=== PATIENT | male | born 1945 | race Caucasian/White ===

== ENCOUNTER → 2018-12-15 | Outpatient (CLI) | payer MEDICARE, OTHER ==
--- NOTE | 2018-12-15 11:27 | NUR ---
PATIENT ARRIVED ON ROOM AIR PATIENCE RESTING SAT WAS 98% ON ROOM AIR WITH A HEART RATE OF 102. PATIENT WAS THEN WALKED FOR 6 MINUTES AFTER 2 MINUTES OF EXERCISE SAT WAS STILL 98% ON ROOM AIR AND AT 4 MINUTES SAT HAD DROPPED TO 97%AND AT 6 MINUTES HIS SAT WAS TO 98% AND HIS HEART RAT WAS NOW UP TO 125BPM.PATIENT THEN TOOK A SEAT AND RESTED AFTER 10 MINUTES OF REST THE PATIENTS SAT WAS 99%WITH A HEART RATE OF 110 BPM. Addendum: 12/15/18 at 1129 by ELLYN GLYNN RT Amended: Links added.
== END ==
LOC: RT 09:39
PROVIDERS: ATTEND Internal Medicine Hematology & Oncology
DX: J44.9 Chronic obstructive pulmonary disease, unspecified (principal); R06.02 Shortness of breath; Z85.118 Personal history of other malignant neoplasm of bronchus and lung
CPT/HCPCS: 94761

== ENCOUNTER 2018-12-30 11:37 | Outpatient (CLI) | payer MEDICARE, OTHER ==
[~2018-12-30] VITALS: Ht 182.9 cm; Wt 96.6 kg
[2018-12-30] MEDS ORDERED: TIOT4MIS2 IH (14:16)
[2018-12-30] MEDS ORDERED: MOME13HF3 IH (14:16)
[2018-12-30] MEDS ORDERED: FLUC150T2 PO (14:16)
[2018-12-30] MEDS ORDERED: ALBU90AE IH (14:16)
[2018-12-30] MEDS ORDERED: LEVO750T39 PO (14:17)
[2018-12-30] MEDS ORDERED: OMEP20TA7 PO (14:17)
[2018-12-30] MEDS ORDERED: PRED5TAB PO (14:17)
[2018-12-30] MEDS ORDERED: SIMV20TA3 PO (14:17)
[2018-12-30] MEDS ORDERED: TEMA30CA PO (14:17)
== END 2018-12-30 14:23 | disposition home or self-care (01) ==
LOC: PREOP 11:37
PROVIDERS: ATTEND Surgery
DX: Z01.818 Encounter for other preprocedural examination (principal)

== ENCOUNTER 2018-12-31 06:23 | Day surgery (SDC) | payer MEDICARE, OTHER ==
[2018-12-31] VITALS (8 sets, daily range): BP systolic 91–107; BP diastolic 42–67
[~2018-12-31] VITALS: Ht 182.9 cm; Wt 96.6 kg
[~2018-12-31 06:23] MED LIST: ALBU90AE IH; FLUC150T2 PO; LEVO750T39 PO; MOME13HF3 IH; OMEP20TA7 PO; PRED5TAB PO; SIMV20TA3 PO; TEMA30CA PO; TIOT4MIS2 IH
[2018-12-31] MEDS ORDERED: LACTATED RINGERS 1,000 ML IV PRN (06:34)
[2018-12-31] MEDS ORDERED: ceFAZolin 2 GM/50 ML NS 50 ML IV ONE (06:45)
--- OUTSIDE RECORDS SUMMARY | 2018-12-31 06:49 | XMS REPORT | Continuity of Care Document ---
Author Organization Unknown Address Unknown Allergies Active Description Code Type Severity Reaction Onset Reported/Identified Relationship to Patient Clinical Status Yes BACTRIM BACTRIM MILD Yes BACTRIM MILD DERMATOLOGICAL - LEONARDA Yes SULFUR SEVERE OTHER Medications Medication Packaging Start Date Stop Date Route Dosage Sig ONDANSETRON VIAL INJ 4 MG/2CC (ZOFRAN 2CC VIAL) MG 09/18/2016 09/18/2016 ONCE&0714 FENTANYL AMP INJ 100 MCG/2CC MCG 09/18/2016 09/18/2016 ONCE&0715 NORMAL SALINE 1000CC IV BAG INJ 0.9 % (NS 1000CC IV BAG) ml 09/18/2016 10/03/2016 CONTINUOUSEVERY 0 Hour FENTANYL AMP INJ 100 MCG/2CC MCG 09/18/2016 09/18/2016 ONCE&0833 HYDROCODONE/APAP 5MG/325MG TAB 5 MG/325MG (SUZIE-TAB 5/325) TAB 12/04/2016 12/04/2016 ONCE&1015 GUAIFENESIN TAB 600 MG (MUCINEX) MG 05/09/2018 05/09/2018 ONCE&1020 NORMAL SALINE 1000CC IV BAG INJ 0.9 % (NS 1000CC IV BAG) ml 05/09/2018 05/24/2018 CONTINUOUSEVERY 0 Hour MECLIZINE TAB 25 MG (ANTIVERT) MG 05/09/2018 05/09/2018 ONCE&1028 IBUPROFEN TAB 600 MG (MOTRIN) MG 05/09/2018 05/09/2018 ONCE&1032 ALBUTEROL SVN 2.5MG/3CC LIQ 2.5 MG (PROVENTIL ATA 2.5MG/3CC) MG 05/09/2018 05/09/2018 ONCE&1034 AZITHROMYCIN TAB 250 MG (ZITHROMAX) MG 05/09/2018 05/09/2018 ONCE&1211 ONDANSETRON VIAL INJ 4 MG/2CC (ZOFRAN 2CC VIAL) MG 08/05/2018 08/05/2018 PRN ONCE NORMAL SALINE 500CC IV BAG INJ 0.9 % (NS 500CC IV BAG) ml 08/05/2018 08/20/2018 CONTINUOUSEVERY 0 Hour KETOROLAC VIAL INJ 30 MG/CC (TORADOL VIAL) MG 08/05/2018 08/05/2018 ONCE&2009 Hyoscyamine oral disintegrating 0.125mg(Levsin) MG 08/05/2018 08/05/2018 ONCE&2034 FENTANYL INJ 100 MCG/2CC VIAL MCG 08/05/2018 08/05/2018 ONCE&2124 Problems Date Dx Coded Attending Type Code Diagnosis Diagnosed By 03/09/2015 EMMANUEL STROUD APRN Ot 327.23 OBSTRUCTIVE SLEEP APNEA (ADULT) (PEDIATR 03/09/2015 EMMANUEL STROUD APRN Ot G47.33 OBSTRUCTIVE SLEEP APNEA (ADULT) (PEDIATR 03/21/2016 W 162.9 03/21/2016 W 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 03/21/2016 W 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 03/21/2016 W 455.6 03/21/2016 W 496 CHRONIC AIRWAY OBSTRUCTION, NOT ELSEWHERE CLASSIFIED 03/21/2016 W 553.3 03/21/2016 W C34.90 MALIGNANT NEOPLASM OF UNSPECIFIED PART OF UNSPECIFIED BRONCHUS OR LUNG 03/21/2016 W G47.39 OTHER SLEEP APNEA 03/21/2016 W G62.2 POLYNEUROPATHY DUE TO OTHER TOXIC AGENTS 03/21/2016 W J44.9 CHRONIC OBSTRUCTIVE PULMONARY DISEASE, UNSPECIFIED 03/21/2016 W K21.9 GASTRO-ESOPHAGEAL REFLUX DISEASE WITHOUT ESOPHAGITIS 03/21/2016 W K64.9 UNSPECIFIED HEMORRHOIDS 09/18/2016 ANGELO CRUMP 562.11 DIVERTICULITIS OF COLON WITHOUT MENTION OF HEMORRHAGE 09/18/2016 ANGELO CRUMP K57.32 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/O BLEEDING 12/04/2016 Melquiades Lilly 823.01 CLOSED FRACTURE OF UPPER END OF FIBULA 12/04/2016 Melquiades Lilly 916.0 ABRASION OR FRICTION BURN OF HIP, THIGH, LEG, AND ANKLE, WITHOUT MENTION OF INFECTION 12/04/2016 Melquiades Lilly 924.01 CONTUSION OF HIP 12/04/2016 Melquiades Lilly S70.02XA CONTUSION OF LEFT HIP, INITIAL ENCOUNTER 12/04/2016 Melquiades Lilly S80.212A ABRASION, LEFT KNEE, INITIAL ENCOUNTER 12/04/2016 Melquiades Lilly S82.832A OTH FRACTURE OF UPPER AND LOWER END OF LEFT FIBULA, INIT 12/07/2016 Anthony Carrasquillo 823.01 CLOSED FRACTURE OF UPPER END OF FIBULA 12/07/2016 Anthony Carrasquillo S82.832A OTH FRACTURE OF UPPER AND LOWER END OF LEFT FIBULA, INIT 11/16/2017 Aidan Caraballo 401.9 UNSPECIFIED ESSENTIAL HYPERTENSION 11/16/2017 Aidan Caraballo W I10 ESSENTIAL (PRIMARY) HYPERTENSION 11/16/2017 Aidan Caraballo 401.9 UNSPECIFIED ESSENTIAL HYPERTENSION 11/16/2017 Aidan Caraballo W 784.0 HEADACHE 11/16/2017 Aidan Caraballo G44.1 VASCULAR HEADACHE, NOT ELSEWHERE CLASSIFIED 11/16/2017 Aidan Caraballo I10 ESSENTIAL (PRIMARY) HYPERTENSION 11/16/2017 Aidan Caraballo 401.9 UNSPECIFIED ESSENTIAL HYPERTENSION 11/16/2017 PaAidan hill W 784.0 HEADACHE 11/16/2017 PaAidan hill W G44.1 VASCULAR HEADACHE, NOT ELSEWHERE CLASSIFIED 11/16/2017 Aidan Caraballo W I10 ESSENTIAL (PRIMARY) HYPERTENSION 11/18/2017 Aidan Caraballo W 784.0 HEADACHE 11/18/2017 PaAidan hill W G44.1 VASCULAR HEADACHE, NOT ELSEWHERE CLASSIFIED 11/18/2017 PaAidan hill W 784.0 HEADACHE 11/18/2017 PaAidan hill G44.1 VASCULAR HEADACHE, NOT ELSEWHERE CLASSIFIED 05/09/2018 ANGELO CRUMP 466.0 ACUTE BRONCHITIS 05/09/2018 ANGELO CRUMP J20.9 ACUTE BRONCHITIS, UNSPECIFIED 05/12/2018 Aidan Caraballo 462 ACUTE PHARYNGITIS 05/12/2018 Aidan Caraballo J02.9 ACUTE PHARYNGITIS, UNSPECIFIED 05/12/2018 Aidan Caraballo 462 ACUTE PHARYNGITIS 05/12/2018 Aidan Caraballo J02.9 ACUTE PHARYNGITIS, UNSPECIFIED 08/05/2018 Taylor Malloy W 008.8 INTESTINAL INFECTION DUE TO OTHER ORGANISM, NOT ELSEWHERE CLASSIFIED 08/05/2018 Taylor Malloy W A08.4 VIRAL INTESTINAL INFECTION, UNSPECIFIED 12/17/2018 ALMAZ SAMUEL, MAREN Murguia J44.9 CHRONIC OBSTRUCTIVE PULMONARY DISEASE, U 12/17/2018 MAREN MUSE MD, Ot R06.02 SHORTNESS OF BREATH 12/17/2018 MAREN MUSE MD, Ot Z85.118 PERSONAL HISTORY OF MALIGNANT NEOPLASM O 12/27/2018 MAREN MUSE MD, Ot J44.9 CHRONIC OBSTRUCTIVE PULMONARY DISEASE, U 12/27/2018 MAREN MUSE MD, Ot R06.02 SHORTNESS OF BREATH 12/27/2018 MAREN MUSE MD, Ot Z85.118 PERSONAL HISTORY OF MALIGNANT NEOPLASM O Procedures There is no data. Results Test Result Range Comprehensive Metabolic Panel - 09/18/16 07:16 Albumin 4.5 g/dL 3.6-5.1 ALP 79 U/L 35-130 ALT 47 U/L 6-45 Anion Gap 19 6-14 AST 34 U/L 2-40 BUN 20 mg/dL 5-25 Calcium 9.7 mg/dL 8.3-10.4 Chloride 106 mmol/L 95-114 CO2 18 mEq/L 22-33 Creat 1.39 mg/dL 0.50-1.50 eGFR 51 mL/min/1.73m2 >59 Globulin 3.2 g/dL 2.3-3.5 Glucose 121 mg/dL 70-110 Osmo 291 280-295 Potassium 3.7 mmol/L 3.5-5.3 Sodium 139 mmol/L 134-148 TBil 0.9 mg/dL 0.2-1.2 TP 7.7 g/dL 6.0-8.3 CBC with Auto Diff - 09/22/16 11:25 Baso% 0.30 % 0.00-2.50 Eos 0.3 K/uL 0.0-0.7 Eos% 3.5 % 0.0-7.0 Hct 45.6 % 42.0-52.0 Hgb 15.7 g/dL 14.0-17.0 Lym 1.86 K/uL 0.60-3.40 Lym% 20.0 % 10.0-50.0 MCH 32.4 pg 27.0-31.2 MCHC 34.4 g/dL 32.0-36.0 MCV 94.0 fL 80.0-97.0 Pitkin% 10.8 % 0.0-12.0 MPV 8.4 fL 7.4-10.0 Missael% 65.4 % 37.0-80.0 Plt 217 K/uL 150-400 RBC 4.85 M/uL 4.20-5.40 RDW 12.9 % 11.6-14.8 WBC 9.31 K/uL 5.00-10.00 Missael 6.08 K/uL 2.00-6.90 Pitkin 1.0 K/uL 0.0-0.9 Baso 0.0 K/uL 0.0-0.2 Lipid Panel - 11/16/17 09:20 C/HDL 3.1 3.7-6.7 Cholesterol 160 mg/dL 100-240 HDL 52 mg/dL 30-85 LDL-Calculated 93 mg/dL 0-100 Trig 73 mg/dL 35-160 VLDL 15 mg/dL 0-42 Comprehensive Metabolic Panel - 11/16/17 09:20 Albumin 4.2 g/dL 3.6-5.1 ALP 88 U/L 35-130 ALT 34 U/L 6-45 Anion Gap 16 6-14 AST 22 U/L 2-40 BUN 15 mg/dL 5-25 Calcium 9.0 mg/dL 8.3-10.4 Chloride 107 mmol/L 95-114 CO2 18 mEq/L 22-33 Creat 1.28 mg/dL 0.50-1.50 eGFR 56 mL/min/1.73m2 >59 Globulin 2.9 g/dL 2.3-3.5 Glucose 118 mg/dL 70-110 Osmo 285 280-295 Potassium 4.3 mmol/L 3.5-5.3 Sodium 137 mmol/L 134-148 TBil 0.6 mg/dL 0.2-1.2 TP 7.1 g/dL 6.0-8.3 Other Culture - 03/04/18 17:00 PRELIM CULTURE RESULTS Scant Coag Neg Gram Positive FINAL CULTURE RESULTS Scant Coag Neg Gram Positive Probable Skin Contaminant No Further Workup done MEDIA PLATED Setup at 18:02 on 03/04/2018 Cardiac Panel - 05/09/18 09:42 CK 56 U/L 26-174 CK-MB 1.3 ng/ml 0.0-9.2 Myoglobin 60.4 ng/ml 1.6-154.9 Troponin <0.020 ng/mL 0.0-0.4 Other Culture - 05/12/18 11:17 PRELIM CULTURE RESULTS Moderate Gram Positive Mixed Normal Lory [id number] Pathogen Isolated at 24 hours MEDIA PLATED Setup at 11:46 on 05/12/2018 Sensi - 05/12/18 11:17 FINAL CULTURE RESULTS Pseudomonas aeruginosa (Isolate 1) Ampicillin/Sulbactam >16/8 Ampicillin >16 Amoxicillin/K Clavulanate >16/8 Ceftriaxone <=8 Ciprofloxacin <=1 Nitrofurantoin >64 Gentamicin <=4 Levofloxacin <=2 Trimethoprim/ Sulfamethoxazole >2/38 Tetracycline 8 Amikacin <=16 Aztreonam <=8 Ceftazidime 4 Ceftazidime/K Clavulanate 2 Cephalothin >16 Cefotaxime 16 Cefotaxime/K Clavulanate >4 Cefoxitin >16 Cefazolin >16 Cefepime <=8 Cefuroxime >16 Ertapenem >4 Imipenem >8 Meropenem <=4 Piperacillin/Tazobactam <=16 Piperacillin <=16 Tigecycline N/R Tobramycin <=4 Comprehensive Metabolic Panel - 08/05/18 20:05 Albumin 4.8 g/dL 3.6-5.1 ALP 93 U/L 35-130 ALT 46 U/L 6-45 Anion Gap 19 6-14 AST 31 U/L 2-40 BUN 16 mg/dL 5-25 Calcium 9.5 mg/dL 8.3-10.4 Chloride 106 mmol/L 95-114 CO2 17 mEq/L 22-33 Creat 1.47 mg/dL 0.50-1.50 eGFR 47 mL/min/1.73m2 >59 Globulin 3.5 g/dL 2.3-3.5 Glucose 107 mg/dL 70-110 Osmo 287 280-295 Potassium 3.6 mmol/L 3.5-5.3 Sodium 138 mmol/L 134-148 TBil 0.4 mg/dL 0.2-1.2 TP 8.3 g/dL 6.0-8.3 Lipase - 08/05/18 20:05 Lipase 16 U/L 7-59 Encounters ACCT No. Visit Date/Time Discharge Status Pt. Type Provider Facility Loc./Unit Complaint [id number] 12/27/2018 09:29:00 12/27/2018 23:59:59 CLS Outpatient MAREN MUSE MD [facility] ONC [id number] 12/15/2018 09:39:00 12/15/2018 23:59:59 CLS Outpatient MAREN MUSE MD [facility] RT COPD [id number] 03/08/2015 19:58:00 03/09/2015 06:25:00 DIS Outpatient EMMANUEL STRUOD APRN [facility] SLEEP SNORING [id number] 03/08/2015 19:59:29 ACT Document Registration [id number] 08/05/2018 19:30:00 08/05/2018 21:36:00 DIS Outpatient Taylor Malloy [facility] ER [id number] 05/12/2018 11:13:00 05/12/2018 23:59:00 DIS Outpatient Aidan Caraballo [id number] 05/09/2018 09:41:00 05/09/2018 12:28:00 DIS Outpatient ANGELO CRUMP [id number] 03/04/2018 16:59:00 03/04/2018 23:59:00 DIS Outpatient Aidan Caraballo [id number] 11/18/2017 14:38:00 11/18/2017 23:59:00 DIS Outpatient Aidan Caraballo [id number] 11/16/2017 09:16:00 11/16/2017 23:59:00 DIS Outpatient Aidan Caraballo [id number] 01/21/2017 08:48:00 01/21/2017 23:59:00 DIS Outpatient KELLY BEAUCHAMP [id number] 12/31/2016 09:13:00 12/31/2016 23:59:00 DIS Outpatient KELLY BEAUCHAMP [id number] 12/07/2016 08:40:00 12/07/2016 10:10:00 DIS Outpatient [facility] ER [id number] 12/04/2016 10:08:00 12/04/2016 11:35:00 DIS Outpatient [facility] ER [id number] 09/22/2016 11:22:00 09/22/2016 23:59:00 DIS Outpatient Aidan Caraballo [id number] 09/18/2016 07:00:00 09/18/2016 09:08:00 [id number] 07/09/2016 08:48:00 07/09/2016 23:59:00 DIS Outpatient KELLY CRANE [id number] 09/18/2016 07:14:41 Document Registration [id number] 03/21/2016 12:32:00 Document Registration
[2018-12-31] MEDS ORDERED: 0.9% SODIUM CHLORIDE PF INJ 20 ML VIAL ONE (07:10)
[2018-12-31] MEDS ORDERED: BUP/EPI 0.5% 1:200,000 (SENSORCAINE) 30 ML VIAL ONE (07:10)
[2018-12-31] MEDS ORDERED: LIDOCAINE 1% INJ 20 ML 20 ML VIAL ONE (07:10)
[2018-12-31] MEDS ORDERED: HEParin (CENTRAL IV FLUSH) 500 UNIT/5 ML SYR ONE (07:10)
[2018-12-31] MEDS ORDERED: MIDAZOLAM 2 MG/2 ML (VERSED) VIAL ONE (07:11)
[2018-12-31] MEDS ORDERED: proPOfol 200 MG/20 ML (DIPRIVAN) VIAL IV ONE (07:11)
[2018-12-31] MEDS ORDERED: KETAMINE/NaCl 50 MG/5 ML SYRINGE ONE (07:14)
[2018-12-31] MEDS ORDERED: fentaNYL INJECTION 100 MCG/2 ML AMP ONE (07:58)
--- NOTE | 2018-12-31 08:01 | Progress Note-Pre Operative ---
Pre-Operative Progress Note H&P Reviewed The H&P was reviewed, patient examined and no changes noted. Date Seen by Provider: December 31, 2018 Time Seen by Provider: 08:00 Date H&P Reviewed: December 31, 2018 Time H&P Reviewed: 08:01 Pre-Operative Diagnosis: MDS, pancytopenia, poor venous access CLARITZA MONTEIRO DO December 31, 2018 08:01
[2018-12-31] MEDS ORDERED: fentaNYL INJECTION 100 MCG/2 ML AMP IV ONE (08:15)
--- NOTE | 2018-12-31 08:15 | NUR ---
PLATELETS SENT TO OR WITH PT. TO BE GIVEN IN THERE BY SANDRO GUZMAN
[2018-12-31] MEDS ORDERED: morphine INJ 10 MG/ML 1ML (SYR OR VIAL) IVP ONE (09:30)
[2018-12-31] MEDS ORDERED: ONDANSETRON 4 MG/2 ML (SDV) Z0FRAN IVP PRN (09:30)
--- NOTE | 2018-12-31 09:55 | Diagnostic Imaging Report ---
INDICATION: Status post line placement. COMPARISON: None FINDINGS: Single frontal radiographic view of the chest was obtained and demonstrates right internal jugular Port-A-Cath. Tip is seen within the SVC. There is no pneumothorax on either side. There is, however, small right-sided pleural effusion. Lungs also have a hyperlucent appearance suggestive of background of emphysematous disease. There is no focal consolidation. Cardiac silhouette and pulmonary vasculature within normal limits. Bony structures show no gross acute abnormalities. IMPRESSION: 1. Right-sided Port-A-Cath as above. No pneumothorax. 2. Small right effusion. 3. Probable background of COPD changes Dictated by: Dictated on workstation # [id number]
--- NOTE | 2018-12-31 10:16 | Anesthesia-General Post-Op ---
MAC Patient Condition Mental Status/LOC: Same as Preop Cardiovascular: Satisfactory Nausea/Vomiting: Absent Respiratory: Satisfactory Pain: Controlled Complications: Absent Post Op Complications Complications None Follow Up Care/Instructions Patient Instructions None needed. Anesthesiology Discharge Order Discharge Order Patient is doing well, no complaints, stable vital signs, no apparent adverse anesthesia problems. No complications reported per nursing. KIRILL HORAN CRNA December 31, 2018 10:16
--- NOTE | 2018-12-31 15:59 | Diagnostic Imaging Report ---
INDICATION: Fluoroscopy during PowerPort insertion. FINDINGS: Fluoroscopy was provided in the OR during PowerPort insertion. 16 seconds of fluoroscopy was utilized. Single image over the right chest shows a right-sided chest wall port with tip overlying the SVC. IMPRESSION: Fluoroscopy during PowerPort insertion. Dictated by: Dictated on workstation # [id number]
--- NOTE | 2018-12-31 16:08 | Progress Note-Post Operative ---
Post-Operative Progess Note Surgeon (s)/Kiln Burner Helper (s) Surgeon CLARITZA MONTEIRO DO Kiln Burner Helper: na Pre-Operative Diagnosis MDS, pancytopenia, poor venous access Post-Operative Diagnosis same Procedure & Operative Findings Date of Procedure 12/31/18 Procedure Performed/Findings right IJ u/s guided port placement Anesthesia Type mac c local Estimated Blood Loss Estimated blood loss (mL): min Specimens/Packing Specimens Removed na CLARITZA MONTEIRO DO December 31, 2018 16:08
--- NOTE | 2019-01-01 00:52 | OPERATIVE REPORT ---
DATE OF SERVICE: 12/31/2018 PREOPERATIVE DIAGNOSES: Myelodysplastic syndrome, history of lung cancer, poor venous access, pancytopenia. POSTOPERATIVE DIAGNOSES: Myelodysplastic syndrome, history of lung cancer, poor venous access, pancytopenia. PROCEDURE: Right internal jugular vein ultrasound-guided port placement. SURGEON: Claritza Marks DO. ANESTHESIA: MAC with local. ESTIMATED BLOOD LOSS: Minimal. COMPLICATIONS: None. INDICATIONS: The patient is a 73-year-old with poor venous access and MDS, undergoing treatment. He understands risks and benefits of procedure and wished to proceed with procedure. Consent was signed in the chart. DESCRIPTION OF PROCEDURE: The patient was taken to the operating suite, placed in a supine position. He was prepped and draped in sterile fashion. Timeout was performed. Using ultrasound, the right internal jugular vein was isolated. Local anesthetic was infiltrated around it. A micro access needle was inserted into the vein. Dark nonpulsatile blood was withdrawn. Micro access wire was inserted and the needle was removed. Fluoroscopy assured proper placement. The needle was then removed. An 11 blade scalpel was used to make a small stab incision. A dilator sheath was then advanced over the wire. The wire and dilator were then removed. The regular guidewire was then inserted through the sheath and the sheath was then removed. Fluoroscopy assured proper placement. The wire was then secured. Local anesthetic was used to infiltrate the neck down towards the right chest for pocket creation. A 15 blade scalpel was used to make a skin incision and a pocket was created for the port to be placed within. The dilator sheath was then advanced over the guidewire under fluoroscopy and the dilator and the wire were then removed. Groshong catheter was inserted through the sheath and the sheath was then removed. The Groshong wire was removed. The catheter was then tunneled from the insertion point down to the pocket that was created on the chest. Fluoroscopy was used to cut the catheter to length, which was then secured to the port in the usual fashion. The port was then placed in the pocket and the port was then accessed without difficulty. Excess blood flushed without difficulty, first with saline and then with heparin. The subcutaneous tissues were then reapproximated using 3-0 Vicryl. The area was then washed and dried and Skin Affix was placed over the incisions. Fluoroscopy assured proper placement of the port. The patient tolerated the procedure well without any complications, taken to recovery room in stable condition. Chest x-ray pending. Job ID: [id number] DocumentID: [id number] Dictated Date: 12/31/2018 16:11:45 Outbound Telemarketer Date: 01/01/2019 00:51:51 Dictated By: CLARITZA MARKS DO
== END 2018-12-31 10:45 | disposition home or self-care (01) ==
LOC: SDC 06:23
PROVIDERS: ATTEND Surgery
DX: I87.2 Venous insufficiency (chronic) (peripheral) (principal); D46.9 Myelodysplastic syndrome, unspecified; D61.818 Other pancytopenia; I10 Essential (primary) hypertension; I35.0 Nonrheumatic aortic (valve) stenosis; K21.9 Gastro-esophageal reflux disease without esophagitis; Z85.118 Personal history of other malignant neoplasm of bronchus and lung; Z79.899 Other long term (current) drug therapy; Z87.891 Personal history of nicotine dependence
CPT/HCPCS: 71045; 87081

== ENCOUNTER 2019-01-01 09:12 | Inpatient (IN) | payer MEDICARE, OTHER ==
[~2019-01-01] VITALS: Ht 182.9 cm; Wt 103.9 kg
[2019-01-01] VITALS (19 sets, daily range): BP systolic 83–130; BP diastolic 33–83
--- OUTSIDE RECORDS SUMMARY | 2019-01-01 09:19 | XMS REPORT | Encounter Summary ---
Author Author [facility] Organization [facility] Address Unknown Phone Unavailable Care Team Providers Care Free Lance Model Name Role Phone Aidan Caraballo PCP Ramiro Collazo MD Unavailable Reason for Visit * Reason Comments Patient Questions Encounter Details Care Team Description Date Type Department Monica Noel RN Patient Questions 12/29/2018 Telephone [facility] [address] [id number] Social History Date Tobacco Use Types Packs/Day Years Used Quit: 11/26/2012 Former Smoker Cigarettes 2 40 Smokeless Tobacco: Never Used Alcohol Use Drinks/Week oz/Week Comments Not Currently 10 Shots of 6.0 none since Sep 2018 liquor Sex Assigned at Date Recorded Not on file Industry Job Start Date Occupation Not on file Not on file Not on file Travel End Travel History Travel Start No recent travel history available. documented as of this encounter Functional Status Date of Assessment Functional Status Response 11/26/2018 Does the patient have a hearing impairment: Yes documented as of this encounter Miscellaneous Notes * Telephone Encounter - Kimmy Ramos RN - 12/31/2018 5:18 PM CDT Patient note with Dr. Clark's response was faxed to Dr. Jarrell's office as req uested below. * Telephone Encounter - Kimmy Ramos RN - 12/31/2018 5:18 PM CDT ----- Message ----- From: Juancarlos Clark MD Sent: 12/31/2018 10:35 AM To: Monica Noel RN I agree with a port from my standpoint. No contraindication * Telephone Encounter - Monica Noel RN - 12/29/2018 11:28 AM CDT Spoke with patient. He states he discussed possible port placement with Dr. Kiley churchill in clinic yesterday. He states he needs a port due to difficulty with blood dr hailey and infusions, etc. Patient is requesting that Dr. Clark send an order or authorization of port plac ement to Dr. Jarrell. Davin Jarrell MD Medical Oncology-Hematology [address] [place], [place] Routing note to Dr. Clark for feedback/authorization. documented in this encounter Plan of Treatment Not on filedocumented as of this encounter Visit Diagnoses Not on filedocumented in this encounter
--- OUTSIDE RECORDS SUMMARY | 2019-01-01 09:19 | XMS REPORT | Clinical Summary ---
Author Author [facility] Organization [facility] Address Unknown Phone Unavailable Care Team Providers Care Retail And Promotions Coordinator Name Role Phone Aidan Caraballo PCP Ramiro Collazo MD Unavailable Source Comments Some departments are not documenting in the electronic medical record. If you d o not see the information that you expected, contact Release of Information in [facility] [employer] Information Management department at [phone] for further assistan ce in locating additional records.[facility] Allergies Comments Active Allergy Reactions Severity Noted Date Sulfamethoxazole-Trimetho BLISTERS High 11/26/2018 prim Medications End Date Status Medication Sig Dispensed Refills Start Date Active mometasone 200 Inhale 1 puff 0 mcg/actuation HFAA by mouth into the lungs twice daily. Active tiotropium (SPIRIVA WITH Place 18 mcg 0 HANDIHALER) 18 mcg into inhaler capsule for inhaler and inhale into lungs as directed daily. Active albuterol (PROAIR HFA, Inhale 2 0 VENTOLIN HFA, OR puffs by PROVENTIL HFA) 90 mouth into mcg/actuation inhaler the lungs every 6 hours as needed for Wheezing or Shortness of Breath. Shake well before use. Active omeprazole DR(+) Take 20 mg by 0 (PRILOSEC) 20 mg capsule mouth twice daily. Active simvastatin (ZOCOR) 20 mg Take 20 mg by 0 tablet mouth at bedtime daily. Active folic acid (FOLVITE) 1 mg Take 1 mg by 0 tablet mouth daily. Active temazepam (RESTORIL) 30 Take 30 mg by 0 mg capsule mouth at bedtime daily. Active fluconazole (DIFLUCAN) Take 150 mg 0 150 mg tablet by mouth once. Active Prednisolone 5 mg Take 5 mg by 0 tabIndications: 8 tablets mouth. ONCE daily Indications: 8 tablets ONCE daily Active levoFLOXacin (LEVAQUIN) Take 750 mg 0 750 mg tablet by mouth once. Active Problems Problem Noted Date MDS (myelodysplastic syndrome), high grade 12/01/2018 Overview: We reviewed Mr. Yost history and the results of his diagnostic tests as detailed above. We discussed with the patient and his family his diagnosis. His bone marrow biopsy showed features diagnostic of MDS. He has 7% blasts. Cytogenetics revealed complex karyotype. He had history of local right lung non-small cell lung cancer and received adjuvant chemotherapy with cisplatin and gemcitabine in 2012. His MDS is likely treatment related. We discussed the natural history of MDS with focus on the fact that it is heterogeneous disease with significant difference in outcomes based on the risk category. We also reviewed the staging for MDS using the different risk stratification tools . Revised-IPSS: Score is 8.5 which corresponds to very high risk MDS and an estimated median survival time of 0.8 years and 25% risk of AML transformation at 0.7 years. IPSS: Score of 2.0 with intermediate-2 risk and 1.2 years of estimated median survival and 25% risk of AML progression in 1.1 years. WPSS: Score is 5, which is very high risk and corresponds to 12 months of median survival and 79% risk of AML transformation at 2 years. His NGS is pending L ast Assessment & Plan: We discussed that his prognosis is poor given that he has treatment related MDS, has a very high risk disease and has poor functional status. We discussed the risk of progression into AML, iron overload with repeated blood transfusion and other associated risks with MDS. With the exception of allogeneic hematopoietic cell transplantation , MDS cannot be cured by current treatment options. He has limited functional status right now given significant shortness of breath and aortic stenosis, he is clearly not suitable for intensive treatment at this time. We discussed the management of high-risk MDS. We discussed hypomethylating agents ( azacitidine/decitabine), and explained risks and benefits. We explained that hypomethylating agents can relieve symptoms, improve the quality of life and prolong survival with modest toxicity, including cytopenias needing blood product transfusions and increased risk of infections. lives in [place], [place] and will need to be followed locally for treatments, supportive care and close monitoring. He was agreeable to establish care with Dr.Mickey Zafar In [place], [place]. We also discussed the option of best supportive care with palliative service. Patient would like to think about his options but he will proceed with hypomethylating agents for now locally. We will see him again in 2 to 4 months with repeat bone marrow biopsy and aspiration at [facility] to evaluate his response. Depending on NGS results, if he has IDH mutations, then IDH targeted agents might be an option. Severe malnutrition 11/29/2018 Pancytopenia 11/26/2018 Last Assessment & Plan: Secondary to MDS Transfuse irradiated packed red blood cells for hemoglobin less than 7.0 unless symptomatic. He has severe shortness of breath with minimal exertion and occasional chest pain. He does not have lower extremity edema and his lungs are clear. His hemoglobin was 8.6 six days ago. It is unlikely that this level of anemia would lead to the significant shortness of breath he has. We suspect that this moderate to severe aortic stenosis is playing a major role in his symptoms. A trial of transfusion could be done to evaluate whether that helps with his shortness of breath. He will be scheduled with cardiology for evaluation. Transfuse irradiated platelets for platelet count less than 10,000 if there is no bleeding. Transfuse irradiated platelets for less than 20,000 with minor bleeding and less than 50,000 with major bleedings or invasive procedures. No transfusions need today. His ANC was 700. No signs or symptoms of infection, if his ANC drops further, then he will need antimicrobial prophylaxis. CKD (chronic kidney disease) 11/26/2018 Last Assessment & Plan: Secondary to previous cisplatin exposure. Stable Aortic stenosis, moderate 11/26/2018 Last Assessment & Plan: He was encouraged to schedule an appointment with cardiology to mange his aortic stenosis as it might be the etiology for most of his shortness of breath. It is unlikely that this level of anemia (hemoglobin 8.6) would lead to the significant shortness of breath he has. Severe aortic stenosis 11/01/2018 CKD (chronic kidney disease) stage 3, GFR 30-59 ml/min 05/13/2017 Chest pain on exertion 02/05/2016 Pancytopenia 04/04/2013 Non-small cell lung cancer Hypertension COPD (chronic obstructive pulmonary disease) Sleep apnea PAD (peripheral artery disease) On home O2 NILA on CPAP History of tobacco use Encounters Care Team Description Date Type Specialty Mnoica Noel RN Patient Questions 12/29/2018 Telephone Cardiology Britney Dunne, EPIC PROFESSIONAL-C Arrived 12/28/2018 Hospital Radiology Encounter Luis Leonard MD Aortic stenosis, moderate (Primary Dx); Non-small cell cancer of right lung (HCC); MDS (myelodysplastic syndrome), high grade (HCC); Pancytopenia (HCC); Chronic obstructive pulmonary disease, unspecified COPD type (HCC); CKD (chronic kidney disease) stage 3, GFR 30-59 ml/min (HCC); PAD (peripheral artery disease) (HCC); On home O2; NILA on CPAP; Hypertension, unspecified type; History of tobacco use 12/28/2018 Office Visit Cardiothoracic Surgery Juancarlos Clark MD Cardiac Eval (/TAVR Eval) 12/28/2018 Office Visit Cardiology Monica Noel RN Aortic stenosis, moderate (Primary Dx); Severe aortic stenosis 12/28/2018 Pre-Admit Cardiology Orders Only Geoff Jules MD MDS (myelodysplastic syndrome), high grade (HCC); Pancytopenia (HCC); Stage 3 chronic kidney disease (HCC); Aortic stenosis, moderate 12/08/2018 Office Visit Oncology Cynthia Hernandez RN Navigation Assessment (/TAVR eval) 12/08/2018 Patient Profile Cardiology Geoff Jules MD 12/08/2018 Documentation Oncology Page Mayorga MD 12/03/2018 Documentation Oncology Geoff Jules MD Navigation Assessment 12/02/2018 Telephone Oncology Rodrigo Gallegos DO 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) 11/29/2018 Orders Only Oncology Hever Guillen MD 11/26/2018 Hospital Radiology Encounter Hever Guillen MD 11/26/2018 Hospital Radiology Encounter Hever Guillen MD Byrd, Kenneth, DO Abdallah, Al-Ola A, MD Male, Melanie Armstrong MD Pancytopenia (HCC) 11/26/2018 Hospital Hematology and Oncology - Encounter 12/01/2018 from Last 3 Months Family History Medical History Relation Name Comments Cancer-Prostate Father Heart Disease Father Cancer-Colon Maternal Aunt Stroke Maternal Grandfather Cancer-Breast Mother Depression Mother Heart Disease Mother Seizures Mother Stroke Paternal Grandfather Heart Attack Neg Hx Relation Name Status Comments Father (Age 86) Maternal Aunt Maternal Grandfather Mother (Age 91) Paternal Grandfather Social History Date Tobacco Use Types Packs/Day [...] Travel Start No recent travel history available. Last Filed Vital Signs Time Taken Vital Sign Reading 12/28/2018 1:19 PM CDT Blood Pressure 124/66 12/28/2018 1:19 PM CDT Pulse 102 12/08/2018 10:50 AM CDT Temperature 36.4 C (97.6 F) 12/08/2018 10:50 AM CDT Respiratory Rate 20 12/28/2018 1:19 PM CDT Oxygen Saturation 94% - Inhaled Oxygen - Concentration 12/28/2018 1:19 PM CDT Weight 96.6 kg (213 lb) 12/28/2018 1:19 PM CDT Height 182.9 cm (6') 12/28/2018 1:19 PM CDT Body Mass Index 28.89 Plan of Treatment Health Maintenance Due Date Last Done Comments HEPATITIS C SCREENING 1945 PHYSICAL (COMPREHENSIVE) 1954 EXAM DTAP/TDAP VACCINES (1 - 1965 Tdap) COLORECTAL CANCER 1997 SCREENING SHINGLES RECOMBINANT 1997 VACCINE (1 of 2) ABDOMINAL AORTIC ANEURYSM 2012 SCREENING PNEUMONIA (PCV13/PPSV23) 2012 VACCINES (1 of 2 - PCV13) INFLUENZA VACCINE 05/10/2019 05/25/2018 Procedures Comments Procedure Name Priority Date/Time Associated Diagnosis CTA CHEST WO/W Routine 12/28/2018 Severe aortic stenosis CONTRAST+POST IMPRESSION 3:38 PM CDT CTA ABD/PELVIS Routine 12/28/2018 Severe aortic stenosis 3:38 PM CDT MAGNESIUM CELLULAR Routine 12/01/2018 THERAPEUTICS 4:45 AM CDT COMPREHENSIVE METABOLIC Routine 12/01/2018 PANEL CELLULAR 4:45 AM CDT THERAPEUTICS CBC AND DIFF CELLULAR Routine 12/01/2018 THERAPEUTICS 4:45 AM CDT LDH-LACTATE DEHYDROGENASE Routine 11/30/2018 5:32 AM CDT URIC ACID Routine 11/30/2018 5:32 AM CDT FIBRINOGEN Routine 11/30/2018 5:32 AM CDT PHOSPHORUS CELLULAR Routine 11/30/2018 THERAPEUTICS 5:32 AM CDT MAGNESIUM CELLULAR Routine 11/30/2018 THERAPEUTICS 5:32 AM CDT COMPREHENSIVE METABOLIC Routine 11/30/2018 PANEL CELLULAR 5:32 AM CDT THERAPEUTICS PTT (APTT) Routine 11/30/2018 5:32 AM CDT PROTIME INR (PT) Routine 11/30/2018 5:32 AM CDT CBC AND DIFF CELLULAR Routine 11/30/2018 THERAPEUTICS 5:32 AM CDT HLA CLASS 1A 1B 1C AND 2 Routine 11/29/2018 PHENO HIGH RES 11:20 PM CDT BASIC METABOLIC PANEL Routine 11/29/2018 11:20 PM CDT HLA ANTIBODY ID Routine 11/29/2018 6:03 PM CDT HLA CLASS 1A 1B 1C AND 2 Routine 11/29/2018 PHENO HIGH RES 6:03 PM CDT HLA ANTIBODY SCREEN Routine 11/29/2018 6:03 PM CDT CMV AB IGG Routine 11/29/2018 6:03 PM CDT CONSULT IV THERAPY TEAM Routine 11/29/2018 2:32 PM CDT URINALYSIS, MICROSCOPIC Routine 11/29/2018 12:15 PM CDT URINALYSIS DIPSTICK Routine 11/29/2018 12:15 PM CDT OSMOLALITY-URINE RANDOM Routine 11/29/2018 12:15 PM CDT SODIUM-URINE RANDOM Routine 11/29/2018 12:15 PM CDT BONE MARROW 11/29/2018 11:47 AM CDT CHROMOSOMES FISH DNA STAT 11/29/2018 PROBE 11:16 AM CDT CHROMOSOMES BONE MARROW Routine 11/29/2018 11:16 AM CDT FLOW CYTOMETRY 11/29/2018 11:10 AM CDT LEUKEMIA/LYMPHOMA PNL, Routine 11/29/2018 BONE MARROW 11:10 AM CDT FE STAIN Routine 11/29/2018 11:10 AM CDT BONE MARROW BIOPSY Routine 11/29/2018 11:10 AM CDT BONE MARROW ASP Routine 11/29/2018 11:10 AM CDT HEME PANEL NGS 65 BLD OR Routine 11/29/2018 BM 11:10 AM CDT AMYLASE Add on 11/29/2018 5:56 AM CDT OSMOLALITY Add on 11/29/2018 5:56 AM CDT LDH-LACTATE DEHYDROGENASE Routine 11/29/2018 5:56 AM CDT URIC ACID Routine 11/29/2018 5:56 AM CDT FIBRINOGEN Routine 11/29/2018 5:56 AM CDT PHOSPHORUS CELLULAR Routine 11/29/2018 THERAPEUTICS 5:56 AM CDT MAGNESIUM CELLULAR Routine 11/29/2018 THERAPEUTICS 5:56 AM CDT COMPREHENSIVE METABOLIC Routine 11/29/2018 PANEL CELLULAR 5:56 AM CDT THERAPEUTICS PTT (APTT) Routine 11/29/2018 5:56 AM CDT PROTIME INR (PT) Routine 11/29/2018 5:56 AM CDT CBC AND DIFF CELLULAR Routine 11/29/2018 THERAPEUTICS 5:56 AM CDT LDH-LACTATE DEHYDROGENASE Routine 11/28/2018 5:33 AM CDT URIC ACID Routine 11/28/2018 5:33 AM CDT FIBRINOGEN Routine 11/28/2018 5:33 AM CDT PHOSPHORUS CELLULAR Routine 11/28/2018 THERAPEUTICS 5:33 AM CDT MAGNESIUM CELLULAR Routine 11/28/2018 THERAPEUTICS 5:33 AM CDT COMPREHENSIVE METABOLIC Routine 11/28/2018 PANEL CELLULAR 5:33 AM CDT THERAPEUTICS PTT (APTT) Routine 11/28/2018 5:33 AM CDT PROTIME INR (PT) Routine 11/28/2018 5:33 AM CDT CBC AND DIFF CELLULAR Routine 11/28/2018 THERAPEUTICS 5:33 AM CDT LDH-LACTATE DEHYDROGENASE Routine 11/27/2018 6:06 AM CDT URIC ACID Routine 11/27/2018 6:06 AM CDT FIBRINOGEN Routine 11/27/2018 6:06 AM CDT PHOSPHORUS CELLULAR Routine 11/27/2018 THERAPEUTICS 6:06 AM CDT MAGNESIUM CELLULAR Routine 11/27/2018 THERAPEUTICS 6:06 AM CDT COMPREHENSIVE METABOLIC Routine 11/27/2018 PANEL CELLULAR 6:06 AM CDT THERAPEUTICS PTT (APTT) Routine 11/27/2018 6:06 AM CDT PROTIME INR (PT) Routine 11/27/2018 6:06 AM CDT CBC AND DIFF CELLULAR Routine 11/27/2018 THERAPEUTICS 6:06 AM CDT VRE SCREEN Routine 11/26/2018 10:00 PM CDT CULTURE-BLOOD Routine 11/26/2018 W/SENSITIVITY 9:55 PM CDT FIBRINOGEN Routine 11/26/2018 9:49 PM CDT CULTURE-BLOOD Routine 11/26/2018 W/SENSITIVITY 9:43 PM CDT 2-D + DOPPLER RANJIT 11/26/2018 ECHOCARDIOGRAM 2:[address] ABD/PELV W CONTRAST STAT 11/26/2018 2:[address] CHEST W CONTRAST STAT 11/26/2018 2:05 PM CDT POC ED US CARDIAC LIMITED STAT 11/26/2018 12:37 PM CDT ECG 12-LEAD STAT 11/26/2018 12:00 PM CDT URINALYSIS, MICROSCOPIC STAT 11/26/2018 11:53 AM CDT URINALYSIS DIPSTICK STAT 11/26/2018 11:53 AM CDT BNP POC ER 11/26/2018 11:52 AM CDT POC TROPONIN 11/26/2018 11:26 AM CDT BLOOD BANK SAMPLE HOLD 11/26/2018 11:24 AM CDT URIC ACID Add on 11/26/2018 11:24 AM CDT LDH-LACTATE DEHYDROGENASE Add on 11/26/2018 11:24 AM CDT PERIPHERAL SMEAR Add on 11/26/2018 11:24 AM CDT LIPASE STAT 11/26/2018 11:24 AM CDT COMPREHENSIVE METABOLIC STAT 11/26/2018 PANEL 11:24 AM CDT CBC AND DIFF STAT 11/26/2018 11:24 AM CDT ECG 12-LEAD STAT 11/26/2018 10:54 AM CDT PRANAY PATH MOLEC REF LAB 11/26/2018 SCAN 12:00 AM CDT CYTOGENETICS SCAN 11/26/2018 12:00 AM CDT CYTOGENETICS SCAN 11/26/2018 12:00 AM CDT CYTOGENETICS SCAN 11/26/2018 12:00 AM CDT ECG-SCAN 11/26/2018 12:00 AM CDT ECG-SCAN 11/26/2018 12:00 AM CDT from Last 3 Months Results * CTA ABD/PELVIS (12/28/2018 3:38 PM CDT) Impressions Performed At CHEST: [facility] 1. Aortic valvular thickening and calcification. 2. Mild dilatation of the ascending thoracic aorta without dissection. 3. Mild emphysema with scattered areas of scarring throughout both lungs. 4. Prior right lower lobectomy. Stable tiny left pulmonary nodules. Follow up CT chest recommended in 6 months. 5. Stable prominent right hilar lymph node. No new or worsening thoracic lymphadenopathy. 6. Coronary artery calcification. ABDOMEN AND PELVIS: 1. 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 No focal common or external iliac arterial stenosis. 2. Persistent diffuse hepatic steatosis. 3. Distal colonic diverticulosis. Finalized by Rodrigo Hernandez M.D. on 12/28/2018 4:32 PM. Dictated by Rodrigo Hernandez M.D. on 12/28/2018 4:05 PM. Narrative Performed At [facility] CHEST, ABDOMEN AND PELVIS [facility] Clinical Indication:Male, 73 years old. Aortic stenosis. Technique: Multiple contiguous axial images were obtained through the chest, abdomen and pelvis following the administration of IV contrast material. Post processing coronal and sagittal reconstruction images were made from the axial images. IV contrast: Omnipaque Bowel contrast: None Comparison: CT November 2018. Evaluation is somewhat limited secondary to repetitive motion artifact. CHEST FINDINGS: Lower Neck: Unremarkable Axilla, Mediastinum and Yesenia: Stable prominent right hilar lymph node (image 33, series 9). Otherwise, no thoracic lymphadenopathy. Heart and Great Vessels: Heart is normal in size without pericardial effusion. Thickening and calcification at the aortic valve compatible with valvular degeneration. Mild dilatation of the ascending thoracic aorta measuring up to 4.1 cm in diameter. Remainder of the thoracic aorta is normal caliber with mild scattered atherosclerotic calcification. At least mild coronary artery calcification. Airway, Lungs and Pleura: Mild emphysema with scattered areas of scarring throughout both lungs. Prior right lower lobectomy. Stable right basilar groundglass opacities, likely secondary to additional scarring. Multiple stable tiny left pulmonary nodules as demonstrated on images 18, 22, 26, and 31, series 9). No definite new or enlarging pulmonary nodules. Chest Wall and Osseous Structures: No destructive osseous lesion. Mild thoracic spondylosis. ABDOMEN AND PELVIS FINDINGS: Liver and Biliary system: Upper limits of normal size liver. Diffuse hepatic steatosis. No focal hepatic lesion. Major portal veins are patent. No radiopaque gallstones. Spleen: Unremarkable. Adrenal Glands and Kidneys: Unremarkable. Pancreas and Retroperitoneum: Unremarkable. Aorta and Major Vessels: Unchanged dilatation of the infrarenal abdominal aorta measuring up to 3.0 cm in AP diameter (image 44, series 11. Moderate diffuse predominantly calcified atherosclerotic plaque with widely patent major abdominal aortic branch vessels. No hemodynamically significant common or external iliac artery stenosis. 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 Additional moderate stenosis of the origin of the left internal iliac artery. Bowel, Mesentery and Peritoneal space: Moderate distal colonic diverticulosis. Pelvis: Dystrophic calcifications within the prostate gland. Abdominal wall and Osseous Structures: Mild lumbar spondylosis. Procedure Note Interface, Radiant Results - 12/28/2018 4:36 PM CDT CTA CHEST, ABDOMEN AND PELVIS Clinical Indication: Male, 73 years old. Aortic stenosis. Technique: Multiple contiguous axial images were obtained through the chest, abdomen and pelvis following the administration of IV contrast material. Post processing coronal and sagittal reconstruction images were made from the axial images. IV contrast: Omnipaque Bowel contrast: None Comparison: CT November 2018. Evaluation is somewhat limited secondary to repetitive motion artifact. CHEST FINDINGS: Lower Neck: Unremarkable Axilla, Mediastinum and Yesenia: Stable prominent right hilar lymph node (image 33, series 9). Otherwise, no thoracic lymphadenopathy. Heart and Great Vessels: Heart is normal in size without pericardial effusion. Thickening and calcification at the aortic valve compatible with valvular degeneration. Mild dilatation of the ascending thoracic aorta measuring up to 4.1 cm in diameter. Remainder of the thoracic aorta is normal caliber with mild scattered atherosclerotic calcification. At least mild coronary artery calcification. Airway, Lungs and Pleura: Mild emphysema with scattered areas of scarring throughout both lungs. Prior right lower lobectomy. Stable right basilar groundglass opacities, likely secondary to additional scarring. Multiple stable tiny left pulmonary nodules as demonstrated on images 18, 22, 26, and 31, series 9). No definite new or enlarging pulmonary nodules. Chest Wall and Osseous Structures: No destructive osseous lesion. Mild thoracic spondylosis. ABDOMEN AND PELVIS FINDINGS: Liver and Biliary system: Upper limits of normal size liver. Diffuse hepatic steatosis. No focal hepatic lesion. Major portal veins are patent. No radiopaque gallstones. Spleen: Unremarkable. Adrenal Glands and Kidneys: Unremarkable. Pancreas and Retroperitoneum: Unremarkable. Aorta and Major Vessels: Unchanged dilatation of the infrarenal abdominal aorta measuring up to 3.0 cm in AP diameter (image 44, series 11. Moderate diffuse predominantly calcified atherosclerotic plaque with widely patent major abdominal aortic branch vessels. No hemodynamically significant common or external iliac artery stenosis. 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 Additional moderate stenosis of the origin of the left internal iliac artery. Bowel, Mesentery and Peritoneal space: Moderate distal colonic diverticulosis. Pelvis: Dystrophic calcifications within the prostate gland. Abdominal wall and Osseous Structures: Mild lumbar spondylosis. IMPRESSION CHEST: 1. Aortic valvular thickening and calcification. 2. Mild dilatation of the ascending thoracic aorta without dissection. 3. Mild emphysema with scattered areas of scarring throughout both lungs. 4. Prior right lower lobectomy. Stable tiny left pulmonary nodules. Follow up CT chest recommended in 6 months. 5. Stable prominent right hilar lymph node. No new or worsening thoracic lymphadenopathy. 6. Coronary artery calcification. ABDOMEN AND PELVIS: 1. 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 No focal common or external iliac arterial stenosis. 2. Persistent diffuse hepatic steatosis. 3. Distal colonic diverticulosis. Finalized by oRdrigo Hernandez M.D. on 12/28/2018 4:32 PM. Dictated by Rodrigo Hernandez M.D. on 12/28/2018 4:05 PM. Performing Organization Address City/State/Zipcode Phone Number [facility] * CTA CHEST WO/W CONTRAST+POST IMPRESSION (12/28/2018 3:38 PM CDT) Impressions Performed At CHEST: [facility] 1. Aortic valvular thickening and calcification. 2. Mild dilatation of the ascending thoracic aorta without dissection. 3. Mild emphysema with scattered areas of scarring throughout both lungs. 4. Prior right lower lobectomy. Stable tiny left pulmonary nodules. Follow up CT chest recommended in 6 months. 5. Stable prominent right hilar lymph node. No new or worsening thoracic lymphadenopathy. 6. Coronary artery calcification. ABDOMEN AND PELVIS: 1. 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 No focal common or external iliac arterial stenosis. 2. Persistent diffuse hepatic steatosis. 3. Distal colonic diverticulosis. Finalized by Rodrigo Hernandez M.D. on 12/28/2018 4:32 PM. Dictated by Rodrigo Hernandez M.D. on 12/28/2018 4:05 PM. Narrative Performed At [facility] CHEST, ABDOMEN AND PELVIS [facility] Clinical Indication:Male, 73 years old. Aortic stenosis. Technique: Multiple contiguous axial images were obtained through the chest, abdomen and pelvis following the administration of IV contrast material. Post processing coronal and sagittal reconstruction images were made from the axial images. IV contrast: Omnipaque Bowel contrast: None Comparison: CT November 2018. Evaluation is somewhat limited secondary to repetitive motion artifact. CHEST FINDINGS: Lower Neck: Unremarkable Axilla, Mediastinum and Yesenia: Stable prominent right hilar lymph node (image 33, series 9). Otherwise, no thoracic lymphadenopathy. Heart and Great Vessels: Heart is normal in size without pericardial effusion. Thickening and calcification at the aortic valve compatible with valvular degeneration. Mild dilatation of the ascending thoracic aorta measuring up to 4.1 cm in diameter. Remainder of the thoracic aorta is normal caliber with mild scattered atherosclerotic calcification. At least mild coronary artery calcification. Airway, Lungs and Pleura: Mild emphysema with scattered areas of scarring throughout both lungs. Prior right lower lobectomy. Stable right basilar groundglass opacities, likely secondary to additional scarring. Multiple stable tiny left pulmonary nodules as demonstrated on images 18, 22, 26, and 31, series 9). No definite new or enlarging pulmonary nodules. Chest Wall and Osseous Structures: No destructive osseous lesion. Mild thoracic spondylosis. ABDOMEN AND PELVIS FINDINGS: Liver and Biliary system: Upper limits of normal size liver. Diffuse hepatic steatosis. No focal hepatic lesion. Major portal veins are patent. No radiopaque gallstones. Spleen: Unremarkable. Adrenal Glands and Kidneys: Unremarkable. Pancreas and Retroperitoneum: Unremarkable. Aorta and Major Vessels: Unchanged dilatation of the infrarenal abdominal aorta measuring up to 3.0 cm in AP diameter (image 44, series 11. Moderate diffuse predominantly calcified atherosclerotic plaque with widely patent major abdominal aortic branch vessels. No hemodynamically significant common or external iliac artery stenosis. 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 Additional moderate stenosis of the origin of the left internal iliac artery. Bowel, Mesentery and Peritoneal space: Moderate distal colonic diverticulosis. Pelvis: Dystrophic calcifications within the prostate gland. Abdominal wall and Osseous Structures: Mild lumbar spondylosis. Procedure Note Interface, Radiant Results - 12/28/2018 4:36 PM CDT CTA CHEST, ABDOMEN AND PELVIS Clinical Indication: Male, 73 years old. Aortic stenosis. Technique: Multiple contiguous axial images were obtained through the chest, abdomen and pelvis following the administration of IV contrast material. Post processing coronal and sagittal reconstruction images were made from the axial images. IV contrast: Omnipaque Bowel contrast: None Comparison: CT November 2018. Evaluation is somewhat limited secondary to repetitive motion artifact. CHEST FINDINGS: Lower Neck: Unremarkable Axilla, Mediastinum and Yesenia: Stable prominent right hilar lymph node (image 33, series 9). Otherwise, no thoracic lymphadenopathy. Heart and Great Vessels: Heart is normal in size without pericardial effusion. Thickening and calcification at the aortic valve compatible with valvular degeneration. Mild dilatation of the ascending thoracic aorta measuring up to 4.1 cm in diameter. Remainder of the thoracic aorta is normal caliber with mild scattered atherosclerotic calcification. At least mild coronary artery calcification. Airway, Lungs and Pleura: Mild emphysema with scattered areas of scarring throughout both lungs. Prior right lower lobectomy. Stable right basilar groundglass opacities, likely secondary to additional scarring. Multiple stable tiny left pulmonary nodules as demonstrated on images 18, 22, 26, and 31, series 9). No definite new or enlarging pulmonary nodules. Chest Wall and Osseous Structures: No destructive osseous lesion. Mild thoracic spondylosis. ABDOMEN AND PELVIS FINDINGS: Liver and Biliary system: Upper limits of normal size liver. Diffuse hepatic steatosis. No focal hepatic lesion. Major portal veins are patent. No radiopaque gallstones. Spleen: Unremarkable. Adrenal Glands and Kidneys: Unremarkable. Pancreas and Retroperitoneum: Unremarkable. Aorta and Major Vessels: Unchanged dilatation of the infrarenal abdominal aorta measuring up to 3.0 cm in AP diameter (image 44, series 11. Moderate diffuse predominantly calcified atherosclerotic plaque with widely patent major abdominal aortic branch vessels. No hemodynamically significant common or external iliac artery stenosis. 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 Additional moderate stenosis of the origin of the left internal iliac artery. Bowel, Mesentery and Peritoneal space: Moderate distal colonic diverticulosis. Pelvis: Dystrophic calcifications within the prostate gland. Abdominal wall and Osseous Structures: Mild lumbar spondylosis. IMPRESSION CHEST: 1. Aortic valvular thickening and calcification. 2. Mild dilatation of the ascending thoracic aorta without dissection. 3. Mild emphysema with scattered areas of scarring throughout both lungs. 4. Prior right lower lobectomy. Stable tiny left pulmonary nodules. Follow up CT chest recommended in 6 months. 5. Stable prominent right hilar lymph node. No new or worsening thoracic lymphadenopathy. 6. Coronary artery calcification. ABDOMEN AND PELVIS: 1. 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 No focal common or external iliac arterial stenosis. 2. Persistent diffuse hepatic steatosis. 3. Distal colonic diverticulosis. Finalized by Rodrigo Hernandez M.D. on 12/28/2018 4:32 PM. Dictated by Rodrigo Hernandez M.D. on 12/28/2018 4:05 PM. Performing Organization Address City/State/Zipcode Phone Number RAD RESULTS * MAGNESIUM CELLULAR THERAPEUTICS (12/01/2018 4:45 AM CDT) Only the most recent of 5 results within the time period is included. Magnesium 2.2 1.6 - 2.6 mg/dL MAIN LAB Specimen Blood Performing Organization Address City/State/Zipcode Phone Number MAIN LAB [address] [place] [address] * COMPREHENSIVE METABOLIC PANEL CELLULAR THERAPEUTICS (12/01/2018 4:45 AM CDT) Only the most recent of 5 results within the time period is included. Sodium 133 (L) 137 - 147 MMOL/L [facility] Potassium 4.1 3.5 - 5.1 MMOL/L [facility] Chloride 105 98 - 110 MMOL/L [facility] Glucose 121 (H) 70 - 100 MG/DL [facility] Blood Urea 17 7 - 25 MG/DL [facility] Nitrogen Creatinine 1.39 (H) 0.4 - 1.24 MG/DL [facility] Calcium 8.8 8.5 - 10.6 MG/DL [facility] Total Protein 6.3 6.0 - 8.0 G/DL [facility] Total Bilirubin 0.6 0.3 - 1.2 MG/DL [facility] Albumin 3.4 (L) 3.5 - 5.0 G/DL [facility] Alk Phosphatase 65 25 - 110 U/L [facility] AST (SGOT) 17 7 - 40 U/L [facility] CO2 20 (L) 21 - 30 MMOL/L [facility] ALT (SGPT) 19 7 - 56 U/L [facility] Anion Gap 8 3 - 12 [facility] eGFR Non 50 (L) >60 mL/min [facility] Comment: [place]oc[place] The eGFR is not validated for use in drug dosing adjustments.Continue to use estimated creatinine clearance per dosing reference text.Please contact the Clinical Pharmacist for questions. eGFR >60 >60 mL/min [facility] [place] Comment: The eGFR is not validated for use in drug dosing adjustments.Continue to use estimated creatinine clearance per dosing reference text.Please contact the Clinical Pharmacist for questions. Specimen Blood Performing Organization Address City/State/Zipcode Phone Number [facility] [address] [place] [address] * CBC AND DIFF CELLULAR THERAPEUTICS (12/01/2018 4:45 AM CDT) Only the most recent of 5 results within the time period is included. White Blood 2.1 (L) 4.5 - 11.0 K/UL [facility] Cells RBC 2.32 (L) 4.4 - 5.5 M/UL [facility] Hemoglobin 8.6 (L) 13.5 - 16.5 GM/DL [facility] Hematocrit 24.6 (L) 40 - 50 % MAIN LAB MCV 106.0 (H) 80 - 100 FL MAIN LAB MCH 37.3 (H) 26 - 34 PG MAIN LAB MCHC 35.1 32.0 - 36.0 G/DL MAIN LAB RDW 17.1 (H) 11 - 15 % [facility] Platelet Count 47 (L) 150 - 400 K/UL MAIN LAB MPV 8.9 7 - 11 FL [facility] Segmented 34 (L) 41 - 77 % MAIN LAB Neutrophils Lymphocytes 55 (H) 24 - 44 % MAIN LAB Monocytes 4 4 - 12 % MAIN LAB Eosinophil 3 0 - 5 % MAIN LAB Blast 4 % MAIN LAB Ovalocyte PRESENT MAIN LAB Platelet MKD DEC MAIN LAB Estimate Absolute 0.71 (L) 1.8 - 7.0 K/UL MAIN LAB Neutrophil Count Manual Specimen Blood Performing Organization Address City/[facility] Phone Number MAIN LAB [address] [place] [address] * PHOSPHORUS CELLULAR THERAPEUTICS (11/30/2018 5:32 AM CDT) Only the most recent of 4 results within the time period is included. Phosphorus 3.1Comment: NOTE NEW REFERENCE 2.0 - 4.5 MG/DL MAIN LAB RANGES Specimen Blood Performing Organization Address [facility] [place] [facility] Phone Number MAIN LAB [address] [place] [address] * PTT (APTT) (11/30/2018 5:32 AM CDT) Only the most recent of 4 results within the time period is included. APTT 26.8 24.0 - 36.5 SEC MAIN LAB Specimen Blood Performing Organization Address City/[facility] Phone Number MAIN LAB [address] [place] [address] * PROTIME INR (PT) (11/30/2018 5:32 AM CDT) Only the most recent of 4 results within the time period is included. INR 1.3 (H) 0.8 - 1.2 MAIN LAB Specimen Blood Performing Organization Address City/[facility]/Zipcode Phone Number MAIN LAB [address] [place] [address] * FIBRINOGEN (11/30/2018 5:32 AM CDT) Only the most recent of 5 results within the time period is included. Fibrinogen 502 (H) 200 - 400 MG/DL [facility] MAIN [facility] Specimen Blood Performing Organization Address [facility] [place] [facility] Phone Number [facility] [address] [place] [address] * URIC ACID (11/30/2018 5:32 AM CDT) Only the most recent of 5 results within the time period is included. Uric Acid 3.4 (L) 4.0 - 8.0 MG/DL [facility] MAIN [facility] Specimen Blood Performing Organization Address [facility] [place] [facility] Phone Number [facility] [address] [place] [address] * LDH-LACTATE DEHYDROGENASE (11/30/2018 5:32 AM CDT) Only the most recent of 5 results within the time period is included. Lactate 188 100 - 210 U/L [facility] MAIN [facility] Dehydrogenase Specimen Blood Performing Organization Address [facility] Phone Number [facility] MAIN [facility] [address] [place] [address] * HLA CLASS 1A 1B 1C AND 2 PHENO HIGH RES (11/29/2018 11:20 PM CDT) Only the most recent of 2 results within the time period is included. Pathologist [facility] HLA Class 1A 1B Report Available in [employer] REFERENCE LAB 1C and 2 Pheno High Res Specimen Blood Performing Organization Address [facility] Phone Number REFERENCE LAB REFERENCE LAB See results for address. * BASIC METABOLIC PANEL (11/29/2018 11:20 PM CDT) Sodium 130 (L) 137 - 147 MMOL/L [facility]IN [facility] Potassium 4.0 3.5 - 5.1 MMOL/L [facility] Chloride 103 98 - 110 MMOL/L [facility] CO2 19 (L) 21 - 30 MMOL/L [facility] Anion Gap 8 3 - 12 [facility] Glucose 121 (H) 70 - 100 MG/DL [facility] Blood Urea 18 7 - 25 MG/DL [facility] Nitrogen Creatinine 1.33 (H) 0.4 - 1.24 MG/DL [facility] Calcium 8.4 (L) 8.5 - 10.6 MG/DL [facility] MAIN [facility] eGFR Non 53 (L) >60 mL/min [facility] MAIN [facility] Comment: [place] The eGFR is not validated for use in drug dosing adjustments.Continue to use estimated creatinine clearance per dosing reference text.Please contact the Clinical Pharmacist for questions. eGFR >60 >60 mL/min [facility]IN [facility] [place] Comment: The eGFR is not validated for use in drug dosing adjustments.Continue to use estimated creatinine clearance per dosing reference text.Please contact the Clinical Pharmacist for questions. Specimen Blood Performing Organization Address [facility] [place] [facility] Phone Number MAIN LAB [address] [place] [address] * HLA ANTIBODY ID (11/29/2018 6:03 PM CDT) Pathologist [facility] HLA Antibody ID Report Available in [employer] REFERENCE LAB Performing Organization Address [facility] Phone Number REFERENCE LAB REFERENCE LAB See results for address. * HLA ANTIBODY SCREEN (11/29/2018 6:03 PM CDT) HLA Antibody Report Available in [employer] REFERENCE LAB Screen Specimen Blood Narrative Performed At Performing Organization Address City/[facility] [place] [facility] Phone Number REFERENCE LAB REFERENCE LAB See results for address. * CMV AB IGG (11/29/2018 6:03 PM CDT) CMV, IgG NEG MAIN LAB Specimen Blood Performing Organization Address [facility] [place] [facility] Phone Number MAIN LAB [address] [place] [address] * URINALYSIS, MICROSCOPIC (11/29/2018 12:15 PM CDT) Only the most recent of 2 results within the time period is included. WBCs,UA NONE 0 - 2 /HPF [facility] MAIN [facility] RBCs,UA NONE 0 - 3 /HPF [facility]IN [facility] Specimen Urine - Urine Performing Organization Address [facility]/Zipcode Phone Number MAIN LAB [address] [place] [address] * URINALYSIS DIPSTICK (11/29/2018 12:15 PM CDT) Only the most recent of 2 results within the time period is included. Color,UA YELLOW [facility] MAIN [facility] Turbidity,UA CLEAR CLEAR-CLEAR [facility] MAIN [facility] Specific 1.006 1.003 - 1.035 [facility] MAIN [facility] Abbot-Urine pH,UA 6.0 5.0 - 8.0 MAIN LAB Protein,UA NEG NEG-NEG MAIN LAB Glucose,UA NEG NEG-NEG [facility] MAIN [facility] Ketones,UA NEG NEG-NEG [facility] MA[facility] Bilirubin,UA NEG NEG-NEG [facility] MAIN [facility] Blood,UA NEG NEG-NEG MAIN LAB Urobilinogen,UA NORMAL NORM-NORMAL MAIN LAB Nitrite,UA NEG NEG-NEG [facility] MAIN [facility] Leukocytes,UA NEG NEG-NEG [facility] MAIN [facility] Urine Ascorbic NEG NEG-NEG MAIN LAB Acid, UA Specimen Urine - Urine Performing Organization Address [facility] [place] [facility] Phone Number MAIN LAB [address] [place] [address] * SODIUM-URINE RANDOM (11/29/2018 12:15 PM CDT) Sodium, Random 41 MMOL/L MAIN LAB Specimen Urine - Urine Performing Organization Address [facility] Phone Number MAIN LAB [address] [place] [address] * OSMOLALITY-URINE RANDOM (11/29/2018 12:15 PM CDT) Osmolality-Urin 236 50 - 1,400 MOS/KG MAIN LAB e Specimen Urine - Urine Performing Organization Address [facility] Phone Number MAIN LAB [address] [place] [address] * BONE MARROW (11/29/2018 11:47 AM CDT) PATHOLOGY [facility] [email or web address] Department of Pathology and Laboratory Medicine [address] [place] [address] Surgical Pathology Office:[phone] :[phone] SURGICAL PATHOLOGY REPORT NAME: KELLY YOST SURG PATH #: [id number] MR #: [id number] ALT ID #: LOCATION: DISCHARGED DATE OF PROCEDURE: 11/29/2018 AGE:73 SEX: M DATE RECEIVED: 11/29/2018 : 1945TIME RECEIVED:11:47 PHYSICIAN: LÁZARO OLIVEIRA DATE OF REPORT: 12/01/2018 COPY TO:DATE OF PRINTIN12/01/2018 ############################## ############################## ############ Final Diagnosis: Bone marrow, right iliac crest, aspirate, biopsy, clot, and touch prep: Myelodysplastic syndrome (with excess blasts, type 2), hypercellular marrow (60%), ring sideroblasts (3%), trilineage dyspoiesis, mild diffuse fibrosis (WHO grade 1/3), and 7% blasts Peripheral blood smear:Macrocytic anemia, absolute neutropenia, dysgranulopoiesis, thrombocytopenia, and 9% blasts Attestation: By this signature, I attest that I have personally formulated the final interpretation expressed in this report and that the above diagnosis is based upon my examination of the slides and/or other material indicated in this report. Teddy Llamas M.D. md/11/29/2018 Material Received: A: right bone marrow clot B: right bone marrow biopsy History: 73 year old male with a history of pancytopenia Gross Description: A. Received in Zinc formalin labeled "right bone marrow clot" is a 1.8 x 1.3 x 0.5 cm aggregate of friable red-brown clotted blood elements. The specimen is serially sectioned and entirely submitted in cassette A1. (cg) B. Received in Zinc formalin labeled "right bone marrow biopsy" is a 1.3 cm in length and 0.2 cm in diameter cylindrical, yellow-welch firm piece of tissue. The specimen is submitted in cassette B1 after decalcification. (cg) cg/11/29/2018 Microscopic Description: CBC Data:HGB 9.2 (g/dL); RBC 2.49 (m/uL); MCV 106.2 (FL); RDW 16.5 (%); WBC 2.3 (k/uL); PLT 38 (k/uL). Blood Smear Diff (%): Segmented neutrophils 30; band neutrophils 5; lymphocytes 52; monocytes 1; eosinophils 3; blasts 9; (Nuc RBC=1 per 100 WBC) Blood Smear Morphology: RBC: Macrocytic anemia, erythroblasts, mild poikilocytosis WBC:Neutropenia, dysgranulopoiesis, blasts Platelets: Thrombocytopenia Bone Marrow Aspirate/Touch Prep Morphology: Aspirate Adequacy:Adequate Touch Prep Adequacy:Adequate Cellularity:Increased Megakaryocytes:Decreased, dyspoiesis Blasts:Increased Erythroid:Dyspoiesis Granulocytes:Decreased, dyspoiesis Lymphocytes:Normal Plasma Cells:Normal Bone Marrow Differential Cell Count (%): Blasts:7 Promyelocytes: 1 Myelocytes: 5 Metamyelocytes: 5 Segs/Bands: 7 Eosinophils: 6 Erythroid: 35 Monocytes: 4 Lymphocytes: 25 Plasma cells: 5 M:E ratio: 0.7 Bone Marrow Core Biopsy: Adequacy:Adequate Length:1.3 cm Cellularity:60% Megakaryocytes:Decreased Hematopoiesis:Resembles aspirate smear Bone Marrow Cell Clot: Adequacy:Suboptimal , minute spicule Cellularity:70% Pertinent Findings:Resembles core biopsy Additional Stains: Iron Stain:Iron stain on the aspirate smear and touch prep shows increased storage iron (on touch prep), normal sideroblast iron, and 3% ring sideroblasts. Immunohistochemistry:Stain s were performed on the core section for CD34, CD61, and CD117.CD61 highlights mildly decreased megakaryocytes with several micromegakaryocytes noted.There are 7% CD34(+) blasts.CD117 is unremarkable. Chromogenic In Situ Hybridization:Not performed Other Special Stains:Reticulin stain and trichrome stain on the core section shows mild diffuse fibrosis. Ancillary Studies: Flow Cytometry:Performed, see separate report Cytogenetics:Performed, see separate report Fluorescence In Situ Hybridization:Performed, see separate report Molecular Genetics:Performed, see separate report Preliminary Diagnosis: Not performed If immunohistochemical stains and/or in situ hybridization are cited in this report, the performance characteristics were determined by the Department of Pathology and Laboratory Medicine of the [facility] ([employer]) in compliance with CLIA'88 regulations.Some of these tests rely on the use of "analyte specific reagents" and are subject to specific labeling requirements by the FDA. Known positive and negative control tissues demonstrate appropriate staining.Results should be interpreted with caution given the likelihood of false negativity on decalcified specimens.This testing was developed by the Department of Pathology and Laboratory Medicine of the [facility].It has not been cleared or approved by the FDA.The FDA has determined that such clearance or approval is not necessary. Performing Organization Address City/State/Zipcode Phone Number [facility] [address] [place] [address] * CHROMOSOMES FISH DNA PROBE (11/29/2018 11:16 AM CDT) Chromosomes Cytogenetics Report Available [facility] Fish DNA Probe in [facility] Specimen Bone Marrow Performing Organization Address City/[facility]/Zipcode Phone Number [facility] LAB [address] [place] [address] * CHROMOSOMES BONE MARROW (11/29/2018 11:16 AM CDT) Pathologist [facility] Chromosomes Cytogenetics Report Available [facility] LAB Bone Marrow in [facility] Specimen Bone Marrow Performing Organization Address [facility] [place] [facility] Phone Number [facility] [address] [place] [address] * HEME PANEL NGS 65 BLD OR BM (11/29/2018 11:10 AM CDT) Pathologist [facility] Heme Panel NGS Report Available in [facility] REFERENCE LAB 65 BLD or Bone Marrow Performing Organization Address [facility] [place] [facility] Phone Number REFERENCE LAB REFERENCE LAB See results for address. * FLOW CYTOMETRY (11/29/2018 11:10 AM CDT) Pathologist [facility] PATHOLOGY [facility] [email or web address] Kai Soliz MD, Director of Flow Cytometry Laboratory Department of Pathology and Laboratory Medicine [address] [place] [address] Surgical Pathology Office:[phone] :[phone] FLOW CYTOMETRY REPORT NAME: KELLY YOST SURG PATH #: [id number] MR #: [id number] SPECIMEN CLASS: LC BILLING #: [id number] ALT ID #:LOCATION: 42 DATE OF PROCEDURE: 11/29/2018 AGE:73 SEX: M DATE RECEIVED: 11/29/2018 : 1945TIME RECEIVED:12:01 PHYSICIAN: LÁZARO OLIVEIRA DATE OF REPORT: 11/29/2018 COPY TO: DO Maureen DECKER M.D. MALE,[facility] DATE OF PRINTIN11/29/2018 Material Received: A: Bone Marrow History: 73 year old male with a history of pancytopenia ############################## ############################## ############ Final Diagnosis: Bone marrow, flow cytometry:Increased atypical myeloid blasts (7%) Interpretation: Myeloid blasts comprise 7% of total events and are positive for CD13, CD33, CD34, CD38, dim CD56 (aberrant), CD117, dim CD123, HLA-DR, and cytoplasmic MPO.These results indicate increased myeloid blasts with aberrant antigen expression. Attestation: By this signature, I attest that I have personally formulated the final interpretation expressed in this report and that the above diagnosis is based upon my examination of the slides and/or other material indicated in this report. +++Electronically Signed Out By+++ xiomara/11/29/2018 Interpreted by: Juancarlos De La Rosa MD 11/29/2018 ############################## ############################## ############ Lab Data: Flow Cytometry - Acute Leukemia Panel Myeloid Associated Markers (% Positive Cells): MD98t=21; WY31u=4; CD13=80; CD14=1; CD15=5; CD33=66; CD64=9; FO075=20; cyMPO=42; cyMPO+CD34+=20 B Cell Associated Markers (% Positive Cells): CD19=5; CD20=4; vhAL40=0; ojUF71a=5 Shreve=0; Lambda=1; Shreve:Lambda ratio=0.0 T Cell Associated Markers (% Positive Cells): CD1a=0; CD2=1; sCD3=0; cyCD3=0; CD4=0; CD5=0; CD7=4; CD8=0 CD4:CD8 ratio=n/a Miscellaneous Markers (% Positive Cells): CD10=1; CD34=72; CD34+CD13+=65; CD34+CD117+=69; CD38=99; CD45= 20; CD56=31; GR724=16; HLA-DR=71; nTdT=0 Cell Viability (%):n/a Number of Cells Analyzed:10,000 Total Number of Markers: 31 Summary of Marker Combinations: Dr/33/34/13/123/45/56/15; 117/34/64/11b/45/14/11c; K/L/34/10/19/45/38/20; 2/7/4/3/1a/45/5/8; nTdt/cy22/34/cy3/cy79a/45/cyMP O/19 This test was developed and its performance characteristics determined by the [facility] Flow Cytometry Laboratory.It has not been cleared or approved by the U.S. Food and Drug Administration (FDA).The FDA has determined that such clearance or approval is not necessary. Performing Organization Address City/[facility]/Zipcode Phone Number [facility] [address] [place] [address] * LEUKEMIA/LYMPHOMA PNL, BONE MARROW (11/29/2018 11:10 AM CDT) Leuk/Lymph SEE PATHOLOGY REPORT MAIN LAB Interpretation Specimen/LLM BONE MARROW [facility] LAB Specimen Bone Marrow Performing Organization Address [facility] [place] [facility] Phone Number [facility] [address] [place] [id number] * FE STAIN (11/29/2018 11:10 AM CDT) Bone Marrow FE SEE PATHOLOGY REPORT [facility] LAB Specimen Bone Marrow - Bone Marrow Performing Organization Address [facility] [place] [facility] Phone Number [facility] [address] [place] [address] * BONE MARROW ASP (11/29/2018 11:10 AM CDT) Bone Marrow Asp SEE PATHOLOGY REPORT MAIN LAB Specimen Bone Marrow - Bone Marrow Performing Organization Address [facility] [place] [facility] Phone Number [facility] [address] [place] [address] * BONE MARROW BIOPSY (11/29/2018 11:10 AM CDT) Bone Marrow Bx SEE PATHOLOGY REPORT MAIN LAB Specimen Bone Marrow - [place] Performing Organization Address [facility]/Zipcode Phone Number [facility] [address] [place] [address] * OSMOLALITY (11/29/2018 5:56 AM CDT) Osmolality 276 (L) 280 - 307 MOSMOL/KG [facility] Performing Organization Address City/[facility]/Zipcode Phone Number [facility] [address] [place] [address] * AMYLASE (11/29/2018 5:56 AM CDT) Amylase 39 24 - 100 U/L [facility] Performing Organization Address City/[facility] [place] [facility] Phone Number [facility] [address] [place] [address] * VRE SCREEN (11/26/2018 10:00 PM CDT) Battery Name VRE SCREEN [facility] Specimen PERIRECTAL SWAB [facility] Description Special NONE [facility] Requests Culture NO VRE ISOLATED [facility] Report Status FINAL [facility] 11/28/2018 Specimen Perirectal Swab Performing Organization Address City/[facility] [place] [facility] Cent[facility] Phone Number [facility] [address] [place] [address] * CULTURE-BLOOD W/SENSITIVITY (11/26/2018 9:55 PM CDT) Only the most recent of 2 results within the time period is included. Battery Name BLOOD CULTURE [facility] Specimen BLOOD MAIN LAB Description RIGHT HAND Special NONE [facility] Requests Culture NO GROWTH 5 DAYS [facility] Report Status FINAL [facility] 12/02/2018 Specimen Blood Performing Organization Address [facility] [place] [facility] Cent[facility] Phone Number MAIN LAB [address] [place] [address] * 2-D + DOPPLER ECHOCARDIOGRAM (11/26/2018 2:57 PM CDT) BSA 2.18 m2 OTHER OUTSIDE LAB LVOT diameter 2.2 cm OTHER OUTSIDE LAB IVS 1.23 0.6 - 1.0 cm OTHER OUTSIDE LAB LVIDD 3.92 4.2 - 5.8 cm OTHER OUTSIDE LAB LVIDS 2.22 2.5 - 4.0 cm OTHER OUTSIDE LAB PW 1.02 0.6 - 1.0 cm OTHER OUTSIDE LAB TDI e' 0.10 m/s OTHER OUTSIDE LAB LVOT peak demetrius 0.84 m/s OTHER OUTSIDE LAB LVOT peak VTI 19.0 cm OTHER OUTSIDE LAB Right 3.33 1.9 - 3.5 cm OTHER OUTSIDE Ventricular Mid LAB Diameter LA size 3.58 3.0 - 4.0 cm OTHER OUTSIDE LAB LA volume 30.89 18 - 58 mL OTHER OUTSIDE LAB Right Atrial 15.29 <18 cm2 OTHER OUTSIDE Area LAB Right Atrial 4.62 2.1 - 2.7 cm OTHER OUTSIDE Major Dimension LAB , with a mean 27 mmHg OTHER OUTSIDE gradient of LAB and a peak 40 mmHg OTHER OUTSIDE gradient of LAB AV peak 3.2 m/s OTHER OUTSIDE velocity LAB Ao VTI 59.0 cm OTHER OUTSIDE LAB MV Peak A Demetrius 0.99 m/s OTHER OUTSIDE LAB MV Peak E Demetrius 0.65 m/s OTHER OUTSIDE PW LAB Right Heart 2.04 >1.7 cm OTHER OUTSIDE Systolic Mmode LAB TAPSE Right 4.45 2.5 - 4.1 cm OTHER OUTSIDE Ventricular LAB Basal Diameter Sinus 3.49 2.8 - 4.0 cm OTHER OUTSIDE LAB CV ECHO PV Odette Lipari, RDCS Definity OTHER OUTSIDE EPOXY FABRICATION SUPERVISOR LAB FS 43.37 28 - 44 % OTHER OUTSIDE LAB EF 73.72 % OTHER OUTSIDE LAB LV mass 145.91 96 - 200 g OTHER OUTSIDE LAB RWT 0.52 <=0.42 OTHER OUTSIDE LAB Aortic valve 1.22 cm2 OTHER OUTSIDE area= LAB AV index 0.26 OTHER OUTSIDE (cherokee) LAB E/A ratio 0.66 OTHER OUTSIDE LAB LVOT area 3.80 cm2 OTHER OUTSIDE LAB LVOT stroke 72.23 cm3 OTHER OUTSIDE volume LAB TV rest 33 mmHg OTHER OUTSIDE pulmonary LAB artery pressure E/E' ratio 6.50 OTHER OUTSIDE LAB Right Heart 0.136 m/s OTHER OUTSIDE Systolic TDI S' LAB Left Atrium 14.17 16 - 34 OTHER OUTSIDE Index LAB Cardiology Siemens [id number] OTHER OUTSIDE Ultrasound LAB Machine Left Ventricle 66.93 50 - 102 g/m2 OTHER OUTSIDE Mass Index LAB ECHO EF 60 % OTHER OUTSIDE LAB Narrative Performed At OTHER OUTSIDE LAB Left Ventricle: Normal size and mass. Concentric remodeling. Normal ejection fraction. EF 60%. No regional wall motion abnormalities seen. Right Ventricle: Normal size and ejection fraction. TAPSE of 2cm. RV S' of 13 cm/s. Aortic Valve: Aortic valve is not well visualized. Appears to be calcified. Velocities are suggestive of at least moderate aortic stenosis. DI of 0.32. Peak velocity of 3.2 m/s. Calculated area of 1.2 cm2 (AVAi of 0.56 cm2/m2). Estimated Peak Systolic PA Pressure 33 mmHg Performing Organization Address City/State/Zipcode Phone Number OTHER OUTSIDE LAB * CT ABD/PELV W CONTRAST (11/26/2018 2:05 PM CDT) Impressions Performed At CHEST: [facility] RESULTS 1. Prior right lower lobectomy. Mild emphysema with scattered areas of scarring. Several sub-5 mm nodular opacities in the left lung, which are indeterminate on initial exam. 2. Upper limits of normal sized right hilar lymph node is indeterminate on initial exam. Comparison to prior examinations is recommended if available. Otherwise, short interval follow-up in 3 months is recommended to evaluate for stability. No additional thoracic lymphadenopathy. ABDOMEN AND PELVIS: 1. No abdominopelvic lymphadenopathy or ascites. 2. Upper limits of normal sized liver with diffuse steatosis. 3. Distal colonic diverticulosis. Approved by Randy Pond M.D. on 11/26/2018 3:50 PM By my electronic signature, I attest that I have personally reviewed the images for this examination and formulated the interpretations and opinions expressed in this report Finalized by VELASQUEZ PATEL M.D. on 11/26/2018 5:07 PM. Dictated by Randy Pond M.D. on 11/26/2018 2:10 PM. Narrative Performed At CT CHEST, ABDOMEN AND PELVIS [facility] RES[facility] Clinical Indication:Male, 73 years old. Lung cancer recurrence suspected, chest pain and shortness of air. Pain radiating to upper abdomen Technique: Multiple contiguous axial images were obtained through the chest, abdomen and pelvis following the administration of IV contrast material.Post processing coronal and sagittal reconstruction images were made from the axial images. IV contrast: Omnipaque 350 Bowel contrast:None Comparison: None CHEST FINDINGS: Lower Neck: Unremarkable Axilla, Mediastinum and Yesenia: No axillary or mediastinal lymphadenopathy. Several small mediastinal lymph nodes are seen, which have short axes less than 1 cm. Upper limits of normal size right hilar lymph node which is indeterminant measuring 1.9 x 1.0 cm (series 2, image 32). Heart and Great Vessels: Heart is normal. No significant pericardial effusion. Coronary artery and aortic valve calcifications are seen. There is mild atherosclerotic calcification of the aortic arch. Airway, Lungs and Pleura: Central airways are patent. Prior right lower lobectomy. Mild apical predominant emphysema. Subtle patchy groundglass opacities are seen in the right lower lobe. Scattered areas of pleural parenchymal scarring. Several sub-5 mm nodular opacities in the left lung, for example series 2, images 29 and 44. No additional soft tissue or nodules. No pleural effusion. Chest Wall and Osseous Structures: No aggressive osseous lesions. Mild thoracic spondylosis. ABDOMEN AND PELVIS FINDINGS: Liver and Biliary system: Liver is upper limits of normal in size. No focal hepatic mass. Diffuse hepatic steatosis. No focal hepatic mass. Portal veins are patent. No biliary ductal dilatation. Gallbladder is nondistended. No radiopaque gallstones. Spleen: Unremarkable. Adrenal Glands and Kidneys: Adrenal glands are unremarkable. Kidneys are unremarkable. Tiny calcification in the right renal pelvis is likely vascular. Pancreas and Retroperitoneum: Mild fatty atrophy of the pancreas. No retroperitoneal lymphadenopathy. Aorta and Major Vessels: Mild ectasia of the infrarenal abdominal aorta measuring up to 3 cm (series 2, image 113). Moderate mixed plaque atherosclerotic calcification of the aortoiliac vessels. Bowel, Mesentery and Peritoneal space: Moderate distal colonic diverticulosis. Large and small bowel loops are normal in caliber. No mesenteric adenopathy. No ascites. No pneumoperitoneum. Pelvis: Urinary bladder is unremarkable. Prostate is normal in size. No pelvic lymphadenopathy. Abdominal wall and Osseous Structures: Mild lumbar spondylosis. No aggressive osseous lesions. Procedure Note Interface, Radiant Results - 11/26/2018 5:[address] CHEST, ABDOMEN AND PELVIS Clinical Indication: Male, 73 years old. Lung cancer recurrence suspected, chest pain and shortness of air. Pain radiating to upper abdomen Technique: Multiple contiguous axial images were obtained through the chest, abdomen and pelvis following the administration of IV contrast material. Post processing coronal and sagittal reconstruction images were made from the axial images. IV contrast: Omnipaque 350 Bowel contrast: None Comparison: None CHEST FINDINGS: Lower Neck: Unremarkable Axilla, Mediastinum and Yesenia: No axillary or mediastinal lymphadenopathy. Several small mediastinal lymph nodes are seen, which have short axes less than 1 cm. Upper limits of normal size right hilar lymph node which is indeterminant measuring 1.9 x 1.0 cm (series 2, image 32). Heart and Great Vessels: Heart is normal. No significant pericardial effusion. Coronary artery and aortic valve calcifications are seen. There is mild atherosclerotic calcification of the aortic arch. Airway, Lungs and Pleura: Central airways are patent. Prior right lower lobectomy. Mild apical predominant emphysema. Subtle patchy groundglass opacities are seen in the right lower lobe. Scattered areas of pleural parenchymal scarring. Several sub-5 mm nodular opacities in the left lung, for example series 2, images 29 and 44. No additional soft tissue or nodules. No pleural effusion. Chest Wall and Osseous Structures: No aggressive osseous lesions. Mild thoracic spondylosis. ABDOMEN AND PELVIS FINDINGS: Liver and Biliary system: Liver is upper limits of normal in size. No focal hepatic mass. Diffuse hepatic steatosis. No focal hepatic mass. Portal veins are patent. No biliary ductal dilatation. Gallbladder is nondistended. No radiopaque gallstones. Spleen: Unremarkable. Adrenal Glands and Kidneys: Adrenal glands are unremarkable. Kidneys are unremarkable. Tiny calcification in the right renal pelvis is likely vascular. Pancreas and Retroperitoneum: Mild fatty atrophy of the pancreas. No retroperitoneal lymphadenopathy. Aorta and Major Vessels: Mild ectasia of the infrarenal abdominal aorta measuring up to 3 cm (series 2, image 113). Moderate mixed plaque atherosclerotic calcification of the aortoiliac vessels. Bowel, Mesentery and Peritoneal space: Moderate distal colonic diverticulosis. Large and small bowel loops are normal in caliber. No mesenteric adenopathy. No ascites. No pneumoperitoneum. Pelvis: Urinary bladder is unremarkable. Prostate is normal in size. No pelvic lymphadenopathy. Abdominal wall and Osseous Structures: Mild lumbar spondylosis. No aggressive osseous lesions. IMPRESSION CHEST: 1. Prior right lower lobectomy. Mild emphysema with scattered areas of scarring. Several sub-5 mm nodular opacities in the left lung, which are indeterminate on initial exam. 2. Upper limits of normal sized right hilar lymph node is indeterminate on initial exam. Comparison to prior examinations is recommended if available. Otherwise, short interval follow-up in 3 months is recommended to evaluate for stability. No additional thoracic lymphadenopathy. ABDOMEN AND PELVIS: 1. No abdominopelvic lymphadenopathy or ascites. 2. Upper limits of normal sized liver with diffuse steatosis. 3. Distal colonic diverticulosis. Approved by Randy Pond M.D. on 11/26/2018 3:50 PM By my electronic signature, I attest that I have personally reviewed the images for this examination and formulated the interpretations and opinions expressed in this report Finalized by VELASQUEZ PATEL M.D. on 11/26/2018 5:07 PM. Dictated by Randy Pond M.D. on 11/26/2018 2:10 PM. Performing Organization Address City/State/Zipcode Phone Number [facility] RES[facility] * CT CHEST W CONTRAST (11/26/2018 2:05 PM CDT) Impressions Performed At CHEST: [facility] RESULTS 1. Prior right lower lobectomy. Mild emphysema with scattered areas of scarring. Several sub-5 mm nodular opacities in the left lung, which are indeterminate on initial exam. 2. Upper limits of normal sized right hilar lymph node is indeterminate on initial exam. Comparison to prior examinations is recommended if available. Otherwise, short interval follow-up in 3 months is recommended to evaluate for stability. No additional thoracic lymphadenopathy. ABDOMEN AND PELVIS: 1. No abdominopelvic lymphadenopathy or ascites. 2. Upper limits of normal sized liver with diffuse steatosis. 3. Distal colonic diverticulosis. Approved by Randy Pond M.D. on 11/26/2018 3:50 PM By my electronic signature, I attest that I have personally reviewed the images for this examination and formulated the interpretations and opinions expressed in this report Finalized by VELASQUEZ PATEL M.D. on 11/26/2018 5:07 PM. Dictated by Randy Pond M.D. on 11/26/2018 2:10 PM. Narrative Performed At CT CHEST, ABDOMEN AND PELVIS [facility] Clinical Indication:Male, 73 years old. Lung cancer recurrence suspected, chest pain and shortness of air. Pain radiating to upper abdomen Technique: Multiple contiguous axial images were obtained through the chest, abdomen and pelvis following the administration of IV contrast material.Post processing coronal and sagittal reconstruction images were made from the axial images. IV contrast: Omnipaque 350 Bowel contrast:None Comparison: None CHEST FINDINGS: Lower Neck: Unremarkable Axilla, Mediastinum and Yesenia: No axillary or mediastinal lymphadenopathy. Several small mediastinal lymph nodes are seen, which have short axes less than 1 cm. Upper limits of normal size right hilar lymph node which is indeterminant measuring 1.9 x 1.0 cm (series 2, image 32). Heart and Great Vessels: Heart is normal. No significant pericardial effusion. Coronary artery and aortic valve calcifications are seen. There is mild atherosclerotic calcification of the aortic arch. Airway, Lungs and Pleura: Central airways are patent. Prior right lower lobectomy. Mild apical predominant emphysema. Subtle patchy groundglass opacities are seen in the right lower lobe. Scattered areas of pleural parenchymal scarring. Several sub-5 mm nodular opacities in the left lung, for example series 2, images 29 and 44. No additional soft tissue or nodules. No pleural effusion. Chest Wall and Osseous Structures: No aggressive osseous lesions. Mild thoracic spondylosis. ABDOMEN AND PELVIS FINDINGS: Liver and Biliary system: Liver is upper limits of normal in size. No focal hepatic mass. Diffuse hepatic steatosis. No focal hepatic mass. Portal veins are patent. No biliary ductal dilatation. Gallbladder is nondistended. No radiopaque gallstones. Spleen: Unremarkable. Adrenal Glands and Kidneys: Adrenal glands are unremarkable. Kidneys are unremarkable. Tiny calcification in the right renal pelvis is likely vascular. Pancreas and Retroperitoneum: Mild fatty atrophy of the pancreas. No retroperitoneal lymphadenopathy. Aorta and Major Vessels: Mild ectasia of the infrarenal abdominal aorta measuring up to 3 cm (series 2, image 113). Moderate mixed plaque atherosclerotic calcification of the aortoiliac vessels. Bowel, Mesentery and Peritoneal space: Moderate distal colonic diverticulosis. Large and small bowel loops are normal in caliber. No mesenteric adenopathy. No ascites. No pneumoperitoneum. Pelvis: Urinary bladder is unremarkable. Prostate is normal in size. No pelvic lymphadenopathy. Abdominal wall and Osseous Structures: Mild lumbar spondylosis. No aggressive osseous lesions. Procedure Note Interface, Radiant Results - 11/26/2018 5:[address] CHEST, ABDOMEN AND PELVIS Clinical Indication: Male, 73 years old. Lung cancer recurrence suspected, chest pain and shortness of air. Pain radiating to upper abdomen Technique: Multiple contiguous axial images were obtained through the chest, abdomen and pelvis following the administration of IV contrast material. Post processing coronal and sagittal reconstruction images were made from the axial images. IV contrast: Omnipaque 350 Bowel contrast: None Comparison: None CHEST FINDINGS: Lower Neck: Unremarkable Axilla, Mediastinum and Yesenia: No axillary or mediastinal lymphadenopathy. Several small mediastinal lymph nodes are seen, which have short axes less than 1 cm. Upper limits of normal size right hilar lymph node which is indeterminant measuring 1.9 x 1.0 cm (series 2, image 32). Heart and Great Vessels: Heart is normal. No significant pericardial effusion. Coronary artery and aortic valve calcifications are seen. There is mild atherosclerotic calcification of the aortic arch. Airway, Lungs and Pleura: Central airways are patent. Prior right lower lobectomy. Mild apical predominant emphysema. Subtle patchy groundglass opacities are seen in the right lower lobe. Scattered areas of pleural parenchymal scarring. Several sub-5 mm nodular opacities in the left lung, for example series 2, images 29 and 44. No additional soft tissue or nodules. No pleural effusion. Chest Wall and Osseous Structures: No aggressive osseous lesions. Mild thoracic spondylosis. ABDOMEN AND PELVIS FINDINGS: Liver and Biliary system: Liver is upper limits of normal in size. No focal hepatic mass. Diffuse hepatic steatosis. No focal hepatic mass. Portal veins are patent. No biliary ductal dilatation. Gallbladder is nondistended. No radiopaque gallstones. Spleen: Unremarkable. Adrenal Glands and Kidneys: Adrenal glands are unremarkable. Kidneys are unremarkable. Tiny calcification in the right renal pelvis is likely vascular. Pancreas and Retroperitoneum: Mild fatty atrophy of the pancreas. No retroperitoneal lymphadenopathy. Aorta and Major Vessels: Mild ectasia of the infrarenal abdominal aorta measuring up to 3 cm (series 2, image 113). Moderate mixed plaque atherosclerotic calcification of the aortoiliac vessels. Bowel, Mesentery and Peritoneal space: Moderate distal colonic diverticulosis. Large and small bowel loops are normal in caliber. No mesenteric adenopathy. No ascites. No pneumoperitoneum. Pelvis: Urinary bladder is unremarkable. Prostate is normal in size. No pelvic lymphadenopathy. Abdominal wall and Osseous Structures: Mild lumbar spondylosis. No aggressive osseous lesions. IMPRESSION CHEST: 1. Prior right lower lobectomy. Mild emphysema with scattered areas of scarring. Several sub-5 mm nodular opacities in the left lung, which are indeterminate on initial exam. 2. Upper limits of normal sized right hilar lymph node is indeterminate on initial exam. Comparison to prior examinations is recommended if available. Otherwise, short interval follow-up in 3 months is recommended to evaluate for stability. No additional thoracic lymphadenopathy. ABDOMEN AND PELVIS: 1. No abdominopelvic lymphadenopathy or ascites. 2. Upper limits of normal sized liver with diffuse steatosis. 3. Distal colonic diverticulosis. Approved by Randy Pond M.D. on 11/26/2018 3:50 PM By my electronic signature, I attest that I have personally reviewed the images for this examination and formulated the interpretations and opinions expressed in this report Finalized by VELASQUEZ PATEL M.D. on 11/26/2018 5:07 PM. Dictated by Randy Pond M.D. on 11/26/2018 2:10 PM. Performing Organization Address City/State/Zipcode Phone Number [facility] RESULTS * POC ED US CARDIAC LIMITED (11/26/2018 12:37 PM CDT) Impressions Performed At [facility] - [id number] Ultrasound [facility] RESULTS Exam Date: 11/26/2018 Exam Type: POC ED US CARDIAC LTD Route Inspector: Joce Elizondo Attending: Hever Guillen Worksheet: ED-Cardiac Clinical Indication(s) for exam: Chest pain Views: Parasternal Long [place]: Limited Parasternal Short [place]: Limited Apical Four-Chamber: Limited Subxiphoid (4 chamber): Limited Subxiphoid IVC: Adequate Apical 2 Chamber: Not obtained Apical Long [place]: Not obtained Subxiphoid LV Short [place]: Not obtained Suprasternal Notch: Not obtained Other: PLAX mislabeled on image 4 and as PSAX Findings: Global Left Ventricular Function: Indeterminate Pericardial Effusion: None Evidence of tamponade: None Right Ventricular Size: Normal IVC: <50% Collapse Interpretation: Global Left Ventricular Function: Indeterminate Pericardial effusion: No sonographic evidence of significant pericardial effusion IVC: Distended IVC with LESS than 50% collpase with respiration (Estimated CVP 10-15) Physician Approval: Resident/Fellow Signature: Signed by Joce Elizondo on Thursday, December 06, 2018 at 11:46:29 AM Credentialed Physician: Signed by Hever Guillen on Thursday, December 20, 2018 at 10:08:06 PM Procedure Note Interface, Radiant Results - 12/20/2018 10:10 PM CDT IMPRESSION [facility] - [facility]xx[id number] Ultrasound Exam Date: 11/26/2018 Exam Type: POC ED US CARDIAC LTD Route Inspector: Joce Elizondo Attending: Hever Guillen Worksheet: ED-Cardiac Clinical Indication(s) for exam: Chest pain Views: Parasternal Long [place]: Limited Parasternal Short [place]: Limited Apical Four-Chamber: Limited Subxiphoid (4 chamber): Limited Subxiphoid IVC: Adequate Apical 2 Chamber: Not obtained Apical Long [place]: Not obtained Subxiphoid LV Short [place]: Not obtained Suprasternal Notch: Not obtained Other: PLAX mislabeled on image 4 and as PSAX Findings: Global Left Ventricular Function: Indeterminate Pericardial Effusion: None Evidence of tamponade: None Right Ventricular Size: Normal IVC: <50% Collapse Interpretation: Global Left Ventricular Function: Indeterminate Pericardial effusion: No sonographic evidence of significant pericardial effusion IVC: Distended IVC with LESS than 50% collpase with respiration (Estimated CVP 10-15) Physician Approval: Resident/Fellow Signature: Signed by Joce Elizondo on Thursday, December 06, 2018 at 11:46:29 AM Credentialed Physician: Signed by Hever Guillen on Thursday, December 20, 2018 at 10:08:06 PM Performing Organization Address City/[facility]/Zipcode Phone Number [facility] RESULTS * BNP POC ER (11/26/2018 11:52 AM CDT) Pathologist [facility] BNP POC <15.0 0 - 100 PG/ML MAIN LAB Performing Organization Address [facility]/[place] [facility] Phone Number MAIN LAB [address] [place] [address] * POC TROPONIN (11/26/2018 11:26 AM CDT) Pathologist [facility] [id number] 0.02 0.00 - 0.05 NG/ML MAIN LAB Performing Organization Address [facility]/[place] [facility] Cent[facility] Phone Number MAIN LAB [address] [place] [address] * BLOOD BANK SAMPLE HOLD (11/26/2018 11:24 AM CDT) Pathologist [facility] BB Sample hold IN LAB MAIN LAB Performing Organization Address [facility] [place] Phone Number MAIN LAB [address] [place] [address] * PERIPHERAL SMEAR (11/26/2018 11:24 AM CDT) Pathologist [facility] Peripheral OTHERS=BLASTS MAIN LAB Smear Pathologist INTERPRETED BY SAMSON VALENZUELA M.D. [facility] Signature By the PATH SIGNATURE ABOVE, I attest that I have personally formulated the final interpretation expressed in this report and that the above diagnosis is based upon my examination of the slides and/or other material indicated in this report. Performing Organization Address [facility]/[place] [facility] Cent[facility] Phone Number MAIN LAB [address] [place] [address] * CBC AND DIFF (11/26/2018 11:24 AM CDT) Pathologist [facility] White Blood 2.9 (L) 4.5 - 11.0 K/UL [facility] Cells RBC 3.00 (L) 4.4 - 5.5 M/UL [facility] Hemoglobin 11.2 (L) 13.5 - 16.5 GM/DL [facility] Hematocrit 31.4 (L) 40 - 50 % [facility] MCV 104.6 (H) 80 - 100 FL [facility] MCH 37.1 (H) 26 - 34 PG [facility] MCHC 35.5 32.0 - 36.0 G/DL [facility] RDW 16.8 (H) 11 - 15 % [facility] Platelet Count 48 (L) 150 - 400 K/UL [facility] MPV 8.6 7 - 11 FL [facility] Nucleated RBCs 1 K/UL [facility] Segmented 23 (L) 41 - 77 % [facility] Neutrophils Bands 10 0 - 10 % [facility] Lymphocytes 49 (H) 24 - 44 % [facility] Monocytes 4 4 - 12 % [facility] Eosinophil 3 0 - 5 % [facility] Metamyelocyte 1 % [facility] Other Cells 10 % [facility] Comment: OTHERS ARE BLASTS. CRITICAL VALUE CALLED TO AND READ BACK BY/TIME/TECH Orestes BENITEZ MD/1330/SGZ Normal RBC NORMAL [facility] Morph Platelet MKD DEC [facility] Estimate Absolute 0.96 (L) 1.8 - 7.0 K/UL [facility] Neutrophil Count Manual Specimen Blood Performing Organization Address City/[facility]/Zipcode Phone Number MAIN [facility] [address] [phone] * LIPASE (11/26/2018 11:24 AM CDT) Lipase 10 (L) 11 - 82 U/L [facility]IN [facility] Specimen Blood Performing Organization Address City/[facility]/Zipcode Phone Number [facility] [address] [place] [address] * COMPREHENSIVE METABOLIC PANEL (11/26/2018 11:24 AM CDT) Sodium 134 (L) 137 - 147 MMOL/L [facility] Potassium 4.5 3.5 - 5.1 MMOL/L [facility] Chloride 103 98 - 110 MMOL/L [facility] Glucose 118 (H) 70 - 100 MG/DL [facility] Blood Urea 20 7 - 25 MG/DL [facility] Nitrogen Creatinine 1.34 (H) 0.4 - 1.24 MG/DL [facility] Calcium 9.6 8.5 - 10.6 MG/DL [facility] Total Protein 7.7 6.0 - 8.0 G/DL [facility] Total Bilirubin 1.0 0.3 - 1.2 MG/DL [facility] Albumin 4.2 3.5 - 5.0 G/DL [facility] Alk Phosphatase 73 25 - 110 U/L [facility] AST (SGOT) 35 7 - 40 U/L [facility] CO2 21 21 - 30 MMOL/L [facility] ALT (SGPT) 38 7 - 56 U/L [facility] Anion Gap 10 3 - 12 [facility] eGFR Non 53 (L) >60 mL/min [facility] Comment: [place] The eGFR is not validated for use in drug dosing adjustments.Continue to use estimated creatinine clearance per dosing reference text.Please contact the Clinical Pharmacist for questions. eGFR >60 >60 mL/min [facility] [place] Comment: The eGFR is not validated for use in drug dosing adjustments.Continue to use estimated creatinine clearance per dosing reference text.Please contact the Clinical Pharmacist for questions. Specimen Blood Performing Organization Address City/State/Zipcode Phone Number MAIN LAB [address] [place] [address] * [facility] REF LAB SCAN (11/26/2018 12:00 AM CDT) Narrative Performed At Ordered by an unspecified provider. * CYTOGENETICS SCAN (11/26/2018 12:00 AM CDT) Only the most recent of 3 results within the time period is included. Narrative Performed At Ordered by an unspecified provider. * ECG-SCAN (11/26/2018 12:00 AM CDT) Narrative Performed At Ordered by an unspecified provider. * ECG-SCAN (11/26/2018 12:00 AM CDT) Narrative Performed At Ordered by an unspecified provider. from Last 3 Months Insurance Type Payer Benefit Subscriber ID Effective Phone Address Plan / Dates Group Medicare MEDICARE MEDICARE xxxxxxxxxxx 2012-P PART A AND resent B Indemnity GENERIC COMMERCIAL GENERIC xxxxxxxxxx 2017- COMMERCIAL Present Medicare MEDICARE MEDICARE xxxxxxxxxxx 2018- TRANSPLANT Present Indemnity GENERIC COMMERCIAL GENERIC xxxxxxxxxx 2018- COMMERCIAL Present Advance Directives Patient has advance care planning documents, and code status on file. For more i nformation, please contact: [address] [address] Date Inactivated Comments Code Status Date Activated 12/01/2018 2:50 PM Full Code 11/26/2018 8:14 PM Provider has discussed Code Status Yes w/Patient or Family?
--- OUTSIDE RECORDS SUMMARY | 2019-01-01 09:19 | XMS REPORT | Encounter Summary ---
Author Author [facility] Organization [facility] Address Unknown Phone Unavailable Care Team Providers Care Principal Secretary Name Role Phone Aidan Caraballo PCP Reason for Visit * Reason Comments Cancer * Consult, Test & Treat (Discharge Pending) Referred By Contact Referred To Contact Status Reason Specialty Diagnoses / Procedures Male, Melanie Armstrong MD [address] [facility] [address] [place] [address] Cc-Ww Bmt Exm [address] [place] [address] [place] [address] No Auth Needed Oncology Diagnoses MDS, RAEB-2 P rocedures F/U APPT REQUEST: [facility] Encounter Details Care Team Description Date Type Department Geoff Jules MD [address] [facility] [place] [address] MDS (myelodysplastic syndrome), high grade (HCC); Pancytopenia (HCC); Stage 3 chronic kidney disease (HCC); Aortic stenosis, moderate 12/08/2018 Office Visit The [address] [phone] Social History Date Tobacco Use Types Packs/Day Years Used Quit: 11/26/2012 Former Smoker Cigarettes 2 40 Smokeless Tobacco: Never Used Alcohol Use Drinks/Week oz/Week Comments Yes 10 Shots of 6.0 liquor Sex Assigned at Date Recorded Not on file Industry Job Start Date Occupation Not on file Not on file Not on file Travel End Travel History Travel Start No recent travel history available. documented as of this encounter Last Filed Vital Signs Time Taken Vital Sign Reading 12/08/2018 10:50 AM CDT Blood Pressure 116/76 12/08/2018 10:50 AM CDT Pulse 104 12/08/2018 10:50 AM CDT Temperature 36.4 C (97.6 F) 12/08/2018 10:50 AM CDT Respiratory Rate 20 12/08/2018 10:50 AM CDT Oxygen Saturation 100% - Inhaled Oxygen - Concentration 12/08/2018 10:50 AM CDT Weight 97.4 kg (214 lb 12.8 oz) 12/08/2018 10:50 AM CDT Height 182.9 cm (6') 12/08/2018 10:50 AM CDT Body Mass Index 29.13 documented in this encounter Functional Status Date of Assessment Functional Status Response 11/26/2018 Does the patient have a hearing impairment: Yes documented as of this encounter Patient Instructions * Patient Instructions* Robina Farmer, RN - 12/08/2018 10:20 AM CDT Your care team: Dr. Geoff Jules Chute Greaser Selam Kim APRN Nurse Practitioner Clinical Nurse Coordinators (CNC's) Randi Lynne RN, BSN Robina Farmer RN, BSN Phone numbers: Scheduling # [phone] CNCs Randi and Robina # [phone] Messages left on nurses' line are checked Thursday-Thursday 8:00 AM - 4:00 PM. Evening (after 4:00 PM), weekend and holiday on-call # [phone] For urgent needs after hours, please ask for the oncologist on-call to be paged. For urgent needs during business hours, please ask for Randi or Dr. Jorge A Quarles 's nurses, to be paged. Notes: - Allow one business week for our office to complete any requested paperwork (FM LA, etc.) - Allow two to three business days for all medication refills. Please call your pharmacy first to check for available refills. documented in this encounter Progress Notes * Geoff Jules MD - 12/08/2018 10:20 AM CDT Name: Kelly Yost : 1945 AGE: 73 y.o. DATE OF SERVICE: 12/08/2018 Subjective: Reason for Visit: Cancer Kelly Yost is a 73 y.o. male. Cancer Staging No matching staging information was found for the patient. History of Present Illness presented outpatient hematology clinic for evaluation for newly diagn osed myelodysplastic syndrome. Patient has history of right lung non-small cell lung cancer which was treated b y resection and adjuvant chemotherapy with cisplatin and gemcitabine in 2012. He has been followed with (in [place], [place] with surveillance. He remembers that his blood count was normal on 06/2018. He noticed worsening shor tness of breath on exertion with occasional chest pain starting 09/2018. At [place]if[place] t time, his platelet count was found to be low at 89K. He was referred to [facility] given his progressive shortness of breath and chest pain. Echocardiogram at that time showed moderate aortic stenosis with peak gradient of 41.3 and mean gradient of 24 mmHg. He also had evidence of stage I left ventricular diastolic dysfunction and lateral wall hypokinesis. His ejection fraction was around 40%. He had nuclear stress test which was negative. He had an cardiac angiogram done on 11-11-2018 and his coronary arteries were normal. However, he was found to have moderate to severe aortic stenosis. Patient pancytopenia got worse and given progressive shortness of breath, he was referred to [facility] for possible acute leukemia. He was admitted at [facility] from 11-08 until 12-01-2018. Per discharge summary ". A peripheral smear from the ED was initially concerning for AML. 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 The patient had stable pancytopenia over admission (counts stayed similar to ones fr [facility]'s records) and did not require any transfusions. He was discharged wit h followup in Hematology with Dr Carias on 12/08 to discuss his pending cytogeneti cs results. From the patient's murmur, Lachelle found aortic stenosis on ECHO and even complet ed LHC which quantified it as moderate-severe (and found no CAD). ECHO showed EF 60% and moderate . Cardiology was consulted and felt he had non-critical s tenosis and we were all more concerned for hematologic-etiology of his symptoms. They also discontinued his amlodipine due to stable normotension. After the det ermination of MDS and patient's count stability, we have increased suspicion for contributing to his symptoms. We requested followup in Cardiology valve clin ic after he is seen by Hematology and MDS is stabilized. If his platelets are st able/increased, Cardiology would consider TAVR with 3-months of plavix. He has likely stable hepatic steatosis in the setting of controlled cholesterol on labs from 11/11/18. His CKD and hx of lung cancer remained stable. " Patient is accompanied by his and stepdaughter. He continues to have signi ficant shortness of breath with minimal exertion. 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 He is using a cane. 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 He had good functional statu s until September 2018. -MR: [id number] APPOINTMENT: Future Appointments Date Time Provider Department Center 12/08/2018 10:20 AM Geoff Jules MD [facility]2 [facility] Exam REFERRING PHYSICIAN: Healther Male FACILITY: INSURANCE: Medicare Allergies: Bactrim Family Hx: Mother-breast cancer Medical Hx: Lung cancer-s/p lobectomy and chemotherapy, HTN, COPD, GERD, HLD, CK D, diverticulosis, neuropathy, Surgical Hx: Lobectomy, heart cath, hemorrhoidectomy Social Hx: Former smoker-quit in 2012, alcohol use, no reported illicit drug use HPI: Patient was admitted to through the ED seeking a 2nd opinion regarding pancytopenia. BMBX performed 11/29 showed probable MDS. Patient was discharged from hospital 12/01 and was referred to hematology to e ray dey. Timeline of Events: DATES 11/26/2018 Labs Hemoglobin 11.2 (L) Hematocrit 31.4 (L) Platelet Count 48 (L) White Blood Cells 2.9 (L) Segmented Neutrophils 23 (L) Absolute Neutrophil Count Manual 0.96 (L) Bands 10 Lymphocytes 49 (H) Monocytes 4 Eosinophil 3 Metamyelocyte 1 Other Cells 10 Nucleated RBCs 1 Peripheral Smear OTHERS=BLASTS Pathologist Signature INTERPRETED BY [facility]... RBC 3.00 (L) MCV 104.6 (H) MCH 37.1 (H) MCHC 35.5 MPV 8.6 RDW 16.8 (H) Platelet Estimate MKD DEC 11/26/2018 CT C/A/P IMPRESSION: CHEST: 1. Prior right lower lobectomy. Mild emphysema with scattered areas of scarring. Several sub-5 mm nodular opacities in the left lung, which are indeterminate on initial exam. 2. Upper limits of normal sized right hilar lymph node is indeterminate on initi al exam. Comparison to prior examinations is recommended if available. Otherwise , short interval follow-up in 3 months is recommended to evaluate for stability. No additional thoracic lymphadenopathy. ABDOMEN AND PELVIS: 1. No abdominopelvic lymphadenopathy or ascites. 2. Upper limits of normal sized liver with diffuse steatosis. 3. Distal colonic diverticulosis. 11/26/2018 Echo EF=60% 11/29/2018 BMBX BM: Myelodysplastic syndrome (with excess blasts, type 2), hypercellular mar row (60%), ring sideroblasts (3%), trilineage dyspoiesis, mild diffuse fibrosis (WHO grade 1/3), and 7% blasts FLOW: Increased atypical myeloid blasts (7%) CTYO: In process as of 12/02/2018 FISH: FISH assays for detection of rearrangement of CBFB and BPML8W2 (ETO)/RUNX 1 (AML1) were WNL. However, in 83.5% of interphase cells an extra GOSB6X1 (ETO) signal was present. NGS: In process as of 12/02/2018 12/01/2018 Labs Hemoglobin 8.6 (L) Hematocrit 24.6 (L) Platelet Count 47 (L) White Blood Cells 2.1 (L) Segmented Neutrophils 34 (L) Absolute Neutrophil Count Manual 0.71 (L) Lymphocytes 55 (H) Monocytes 4 Eosinophil 3 Blast 4 RBC 2.32 (L) MCV 106.0 (H) MCH 37.3 (H) MCHC 35.1 MPV 8.9 RDW 17.1 (H) Platelet Estimate MKD DEC Ovalocyte PRESENT Review of Systems Constitutional: Positive for activity change, appetite change, diaphoresis and f atigue. HENT: Negative for mouth sores, tinnitus and trouble swallowing. Eyes: Negative for photophobia, discharge and visual disturbance. Respiratory: Positive for cough, chest tightness and shortness of breath. Occasional hemoptysis Cardiovascular: Positive for chest pain. Negative for palpitations and leg swell ing. Gastrointestinal: Negative for abdominal distention, abdominal pain, anal bleedi ng, blood in stool, constipation, diarrhea, nausea, rectal pain and vomiting. Genitourinary: Negative for difficulty urinating, dysuria and hematuria. Musculoskeletal: Negative for arthralgias, back pain and joint swelling. Skin: Negative for color change, pallor and rash. Neurological: Negative for dizziness, weakness, numbness and headaches. Hematological: Negative for adenopathy. Does not bruise/bleed easily. Psychiatric/Behavioral: Negative for agitation and confusion. The patient is not nervous/anxious. Objective: albuterol (PROAIR HFA, VENTOLIN HFA, OR PROVENTIL HFA) 90 mcg/actuation inha ler Inhale 2 puffs by mouth into the lungs every 6 hours as needed for Wheezing or Shortness of Breath. Shake well before use. folic acid (FOLVITE) 1 mg tablet Take 1 mg by mouth daily. mometasone 200 mcg/actuation HFAA Inhale 1 puff by mouth into the lungs twic e daily. omeprazole DR(+) (PRILOSEC) 20 mg capsule Take 20 mg by mouth twice daily. simvastatin (ZOCOR) 20 mg tablet Take 20 mg by mouth at bedtime daily. temazepam (RESTORIL) 30 mg capsule Take 30 mg by mouth at bedtime daily. tiotropium (SPIRIVA WITH HANDIHALER) 18 mcg capsule for inhaler Place 18 mcg into inhaler and inhale into lungs as directed daily. Vitals: 12/08/18 1050 BP: 116/76 Pulse: 104 Resp: 20 Temp: 36.4 C (97.6 F) TempSrc: Oral SpO2: 100% Weight: 97.4 kg (214 lb 12.8 oz) Height: 182.9 cm (72") Body mass index is 29.13 kg/m. Pain Score: Seven Pain Loc: Abdomen Fatigue Scale: 10-Extreme Pain Addressed: N/A Patient Evaluated for a Clinical Trial: Patient currently in screening for a [facility] clinical trial. Eastern Cooperative Oncology Group performance status is 3, Capable of only limi christopher selfcare, confined to bed or chair more than 50% of waking hours. Physical Exam Constitutional: He is oriented to person, place, and time. He appears well-devel oped and well-nourished. No distress. HENT: Head: Normocephalic and atraumatic. Mouth/Throat: Oropharynx is clear and moist. Eyes: Conjunctivae and EOM are normal. Right eye exhibits no discharge. Left eye exhibits no discharge. Neck: Neck supple. Cardiovascular: Normal rate and regular rhythm. Murmur heard. Systolic murmur is present with a grade of 3/6. Pulmonary/Chest: Breath sounds normal. Tachypnea noted. He is in respiratory dis tress. He has no wheezes. He has no rales. Abdominal: Soft. He exhibits no distension and no mass. There is no hepatospleno megaly. There is no tenderness. There is no guarding. Musculoskeletal: Normal range of motion. He exhibits no edema. Lymphadenopathy: He has no cervical adenopathy. He has no axillary adenopathy. Neurological: He is alert and oriented to person, place, and time. Skin: Skin is warm and dry. Bruising noted. No rash noted. No pallor. Psychiatric: He has a normal mood and affect. His behavior is normal. Nursing note and vitals reviewed. CBC w diff CBC with Diff Latest Ref Rng & Units 12/01/2018 11/30/2018 11/29/2018 11/28/2018 11/27/2018 WBC 4.5 - 11.0 K/UL 2.1(L) 2.4(L) 2.3(L) 4.2(L) 2.0(L) RBC 4.4 - 5.5 M/UL 2.32(L) 2.39(L) 2.49(L) 2.48(L) 2.60(L) HGB 13.5 - 16.5 GM/DL 8.6(L) 8.7(L) 9.2(L) 9.3(L) 10.1(L) HCT 40 - 50 % 24.6(L) 25.7(L) 26.4(L) 26.3(L) 27.9(L) MCV 80 - 100 FL 106.0(H) 107.3(H) 106.2(H) 105.7(H) 107.3(H) MCH 26 - 34 PG 37.3(H) 36.4(H) 36.8(H) 37.5(H) 39.0(H) MCHC 32.0 - 36.0 G/DL 35.1 33.9 34.6 35.5 36.3(H) RDW 11 - 15 % 17.1(H) 16.7(H) 16.5(H) 16.5(H) 17.1(H) PLT 150 - 400 K/UL 47(L) 32(L) 38(L) 38(L) 40(L) MPV 7 - 11 FL 8.9 9.7 8.3 8.6 8.4 Comprehensive Metabolic Profile Lab Results Component Value Date/Time NA 133 (L) 12/01/2018 04:45 AM K 4.1 12/01/2018 04:45 AM CL 105 12/01/2018 04:45 AM CO2 20 (L) 12/01/2018 04:45 AM GAP 8 12/01/2018 04:45 AM BUN 17 12/01/2018 04:45 AM CR 1.39 (H) 12/01/2018 04:45 AM GLU 121 (H) 12/01/2018 04:45 AM Lab Results Component Value Date/Time CA 8.8 12/01/2018 04:45 AM PO4 3.1 11/30/2018 05:32 AM ALBUMIN 3.4 (L) 12/01/2018 04:45 AM TOTPROT 6.3 12/01/2018 04:45 AM ALKPHOS 65 12/01/2018 04:45 AM AST 17 12/01/2018 04:45 AM ALT 19 12/01/2018 04:45 AM TOTBILI 0.6 12/01/2018 04:45 AM GFR 50 (L) 12/01/2018 04:45 AM GFRAA >60 12/01/2018 04:45 AM NAME: KELLY YOST A SURG PATH #: [id number] MR #: [id number] ALT ID #: LOCATION: DISCHARGED DATE OF PROCEDURE: 11/29/2018 AGE: 73 SEX: M DATE RECEIVED: 11/29/2018 : 1945 TIME RECEIVED: 11:47 PHYSICIAN: LÁZARO OLIVEIRA DATE OF REPORT: 12/01/2018 COPY TO: DATE OF PRINTIN12/01/2018 ######################################################################## Final Diagnosis: Bone marrow, right iliac crest, aspirate, biopsy, clot, and touch prep: Myelodysplastic syndrome (with excess blasts, type 2), hypercellular marrow (60%), ring sideroblasts (3%), trilineage dyspoiesis, mild diffuse fibrosis (WHO grade 1/3), and 7% blasts Peripheral blood smear: Macrocytic anemia, absolute neutropenia, dysgranulopoiesis, thrombocytopenia, and 9% blasts Assessment and Plan: Problem Mds (Myelodysplastic Syndrome), High Grade (Hcc) We reviewed Mr. Yost history and the results of his diagnostic tests as detlalo nielsond above. We discussed with the patient and his family his diagnosis. His emily ne marrow biopsy showed features diagnostic of MDS. He has 7% blasts. Cytogenet ics revealed complex karyotype. He had history of local right lung non-small ce ll lung cancer and received adjuvant chemotherapy with cisplatin and gemcitabine in 2012. His MDS is likely treatment related. We discussed the natural history of MDS with focus on the fact that it is heter ogeneous disease with significant difference in outcomes based on the risk claudette gory. We also reviewed the staging for MDS using the different risk stratificati on tools . Revised-IPSS: Score is 8.5 which corresponds to very high risk MDS and an estima christopher median survival time of 0.8 years and 25% risk of AML transformation at 0.7 years. IPSS: Score of 2.0 with intermediate-2 risk and 1.2 years of estimated median perez rvival and 25% risk of AML progression in 1.1 years. WPSS: Score is 5, which is very high risk and corresponds to 12 months of median survival and 79% risk of AML transformation at 2 years. His NGS is pending Pancytopenia (Hcc) Ckd (Chronic Kidney Disease) Aortic Stenosis, Moderate Severe Aortic Stenosis Ckd (Chronic Kidney Disease) Stage 3, Gfr 30-59 Ml/Min (Hcc) Chest Pain On Exertion Pancytopenia (Hcc) MDS (myelodysplastic syndrome), high grade (HCC) We discussed that his prognosis is poor given that he has treatment related MDS, has a very high risk disease and has poor functional status. We discussed the r isk of progression into AML, iron overload with repeated blood transfusion and o ther associated risks with MDS. With the exception of allogeneic hematopoietic c ell transplantation , MDS cannot be cured by current treatment options. He has limited functional status right now given significant shortness of breath and ao rtic stenosis, he is clearly not suitable for intensive treatment at this time. We discussed the management of high-risk MDS. We discussed hypomethylating agen ts ( azacitidine/decitabine), and explained risks and benefits. We explained th at hypomethylating agents can relieve symptoms, improve the quality of life and prolong survival with modest toxicity, including cytopenias needing blood produc t transfusions and increased risk of infections. lives in [place], [place] and will need to be followed locally for treatments, supportive care and close monitoring. He was agreeable to establish care with Dr.Mickey Zafar In [place], [place]. We also discussed the option of best supportive care with palliative service. Bob de dios would like to think about his options but he will proceed with hypomethyl ating agents for now locally. We will see him again in 2 to 4 months with repea t bone marrow biopsy and aspiration at [facility] to evaluate his response. Depending on NGS results, if he has IDH mutations, then IDH targeted agents migh t be an option. Pancytopenia (HCC) Secondary to MDS Transfuse irradiated packed red blood cells for hemoglobin less than 7.0 unless symptomatic. He has severe shortness of breath with minimal exertion and occasi onal chest pain. He does not have lower extremity edema and his lungs are clear . His hemoglobin was 8.6 six days ago. It is unlikely that this level of anemi a would lead to the significant shortness of breath he has. We suspect that this moderate to severe aortic stenosis is playing a major role in his symptoms. A trial of transfusion could be done to evaluate whether that helps with his short ness of breath. He will be scheduled with cardiology for evaluation. Transfuse irradiated platelets for platelet count less than 10,000 if there is n o bleeding. Transfuse irradiated platelets for less than 20,000 with minor ble eding and less than 50,000 with major bleedings or invasive procedures. No trans fusions need today. His ANC was 700. No signs or symptoms of infection, if his ANC drops further, th en he will need antimicrobial prophylaxis. CKD (chronic kidney disease) Secondary to previous cisplatin exposure. Stable Aortic stenosis, moderate He was encouraged to schedule an appointment with cardiology to mange his aortic stenosis as it might be the etiology for most of his shortness of breath. It is unlikely that this level of anemia (hemoglobin 8.6) would lead to the signifi cant shortness of breath he has. Patient was seen and discussed with Dr. Jorge A Denny MD, MSc Hematology/Oncology Fellow [facility] Pager [phone] ATTESTATION I personally performed the maurice portions of the E/M visit, discussed case with re sident and concur with resident documentation of history, physical exam, assessm ent, and treatment plan unless otherwise noted. I have counseled the patient about the need for a BM biopsy. I have explained th e side effecs, risks and indications. Side effects include local pain and bleedi ng as well as nerve injury. The patient agreed to proceed with the biopsy and al l questions were answered to the patient's satisfaction. Staff name: Geoff Jules MD Date: 12/08/2018 documented in this encounter Plan of Treatment Not on filedocumented as of this encounter Visit Diagnoses Diagnosis MDS (myelodysplastic syndrome), high grade (HCC) High grade myelodysplastic syndrome lesions Pancytopenia (HCC) Other pancytopenia Stage 3 chronic kidney disease (HCC) Aortic stenosis, moderate Aortic valve disorders * Assessment & Plan Note - Alison Denny MBBS - 12/08/2018 3:17 PM CDT Associated Problem(s): Aortic stenosis, moderate He was encouraged to schedule an appointment with cardiology to mange his aortic stenosis as it might be the etiology for most of his shortness of breath. It is unlikely that this level of anemia (hemoglobin 8.6) would lead to the signifi cant shortness of breath he has. * Assessment & Plan Note - Alison Denny MBBS - 12/08/2018 3:16 PM CDT Associated Problem(s): CKD (chronic kidney disease) Secondary to previous cisplatin exposure. Stable * Assessment & Plan Note - Alison Denny MBBS - 12/08/2018 3:10 PM CDT Associated Problem(s): Pancytopenia (HCC) Secondary to MDS Transfuse irradiated packed red blood cells for hemoglobin less than 7.0 unless symptomatic. He has severe shortness of breath with minimal exertion and occasi onal chest pain. He does not have lower extremity edema and his lungs are clear . His hemoglobin was 8.6 six days ago. It is unlikely that this level of anemi a would lead to the significant shortness of breath he has. We suspect that this moderate to severe aortic stenosis is playing a major role in his symptoms. A trial of transfusion could be done to evaluate whether that helps with his short ness of breath. He will be scheduled with cardiology for evaluation. Transfuse irradiated platelets for platelet count less than 10,000 if there is n o bleeding. Transfuse irradiated platelets for less than 20,000 with minor ble eding and less than 50,000 with major bleedings or invasive procedures. No trans fusions need today. His ANC was 700. No signs or symptoms of infection, if his ANC drops further, th en he will need antimicrobial prophylaxis. * Assessment & Plan Note - Alison Denny MBBS - 12/08/2018 3:06 PM CDT Associated Problem(s): MDS (myelodysplastic syndrome), high grade (HCC) We discussed that his prognosis is poor given that he has treatment related MDS, has a very high risk disease and has poor functional status. We discussed the r isk of progression into AML, iron overload with repeated blood transfusion and o ther associated risks with MDS. With the exception of allogeneic hematopoietic c ell transplantation , MDS cannot be cured by current treatment options. He has limited functional status right now given significant shortness of breath and ao rtic stenosis, he is clearly not suitable for intensive treatment at this time. We discussed the management of high-risk MDS. We discussed hypomethylating agen ts ( azacitidine/decitabine), and explained risks and benefits. We explained th at hypomethylating agents can relieve symptoms, improve the quality of life and prolong survival with modest toxicity, including cytopenias needing blood produc t transfusions and increased risk of infections. lives in [place], [place] and will need to be followed locally for treatments, supportive care and close monitoring. He was agreeable to establish care with Dr.Mickey Zafar In [place], [place]. We also discussed the option of best supportive care with palliative service. Bob de dios would like to think about his options but he will proceed with hypomethyl ating agents for now locally. We will see him again in 2 to 4 months with repea t bone marrow biopsy and aspiration at [facility] to evaluate his response. Depending on NGS results, if he has IDH mutations, then IDH targeted agents migh t be an option. documented in this encounter
--- OUTSIDE RECORDS SUMMARY | 2019-01-01 09:19 | XMS REPORT | Encounter Summary ---
Author Author [facility] Organization [facility] Address Unknown Phone Unavailable Care Team Providers Care Process Tank Tender Name Role Phone Aidan Caraballo PCP Ramiro Collazo MD Unavailable Reason for Referral * Radiology Services (Routine) Referred By Contact Referred To Contact Status Reason Specialty Diagnoses / Procedures Britney Dunne APRN-C [address] [place] [address] [address] No Auth Needed Radiology Diagnoses Severe aortic stenosis P rocedures CTA CHEST WO/W CONTRAST+POST IMPRESSION * Radiology Services (Routine) Referred By Contact Referred To Contact Status Reason Specialty Diagnoses / Procedures Britney Dunne APRN-C [address] [address] No Auth Needed Radiology Diagnoses Severe aortic stenosis P rocedures CTA CHEST WO/W CONTRAST+POST IMPRESSION * Radiology Services (Routine) Referred By Contact Referred To Contact Status Reason Specialty Diagnoses / Procedures Britney Dunne APRN-C [address] [address] New Request Radiology Diagnoses Severe aortic stenosis P rocedures CTA ABD/PELVIS * Radiology Services (Routine) Referred By Contact Referred To Contact Status Reason Specialty Diagnoses / Procedures Britney Dunne APRN-C [address] [place], [place] [id number] New Request Radiology Diagnoses Severe aortic stenosis P rocedures CTA ABD/PELVIS Reason for Visit * Radiology Services (Routine) Referred By Contact Referred To Contact Status Reason Specialty Diagnoses / Procedures Britney Dunne APRN-C [address] [place] [address] [facility] [address] [address] No Auth Needed Radiology Diagnoses Severe aortic stenosis P rocedures CTA CHEST WO/W CONTRAST+POST IMPRESSION Encounter Details Care Team Description Date Type Department Britney Dunne APRN-C [address] [place] [address] [phone] Arrived 12/28/2018 [facility] [address] [place] [address] Social History Date Tobacco Use Types Packs/Day [...] impairment: Yes documented as of this encounter Plan of Treatment Not on filedocumented as of this encounter Procedures Comments Procedure Name Priority Date/Time Associated Diagnosis CTA ABD/PELVIS Routine 12/28/2018 Severe aortic stenosis 3:38 PM CDT CTA CHEST WO/W Routine 12/28/2018 Severe aortic stenosis CONTRAST+POST IMPRESSION 3:38 PM CDT documented in this encounter Results * CTA CHEST WO/W CONTRAST+POST IMPRESSION (12/28/2018 [...] on 12/28/2018 4:05 PM. Performing Organization Address [facility] * CTA ABD/PELVIS (12/28/2018 3:38 PM CDT) [...] Address City/State/Zipcode Phone Number [facility] RAD RESULTS documented in this encounter Visit Diagnoses Diagnosis Severe aortic stenosis Aortic valve disorders documented in this encounter Administered Medications Action Date Dose Rate Site Medication Order MAR Action 12/28/2018 3:29 PM CDT 100 mL iohexol (OMNIPAQUE-350) 350 mg/mL Given injection 100 mL 100 mL, Intravenous, ONCE, 1 dose, 12/28/18 at 1530, NOTE: This is a HIGH ALERT Medication., 12/28/2018 3:29 PM CDT 50 mL sodium chloride PF 0.9% injection 50 mL Given 50 mL, Intravenous, ONCE, 1 dose, 12/28/18 at 1530, DO NOT SEND this medication unless it is requested. This med is usually available in floor stock., Intra-procedure (IR) documented in this encounter
--- OUTSIDE RECORDS SUMMARY | 2019-01-01 09:19 | XMS REPORT | Encounter Summary ---
Author Author [facility] Organization [facility] Address Unknown Phone Unavailable Care Team Providers Care Paperhanger And Painter Name Role Phone Aidan Caraballo PCP Encounter Details Care Team Description Date Type Department Page Mayorga MD [address] [place] [address] 12/03/2018 Documentation [facility] [address] [place] [address] Social History Date Tobacco Use Types Packs/Day Years Used Quit: 11/26/2012 Former Smoker 2 40 Smokeless Tobacco: Never Used Alcohol Use Drinks/Week oz/Week Comments Yes 1-2 Shots of 0.6 - 1.2 liquor Sex Assigned at Date Recorded Not [...] as of this encounter Miscellaneous Notes * Research - Yennifer Burrows - 12/03/2018 11:59 PM CDT Research Note: [id number], [facility]# [id number], Subject ID [id number] Patient [id number] bone marrow shows MDS. Patient will be reported as a screen f ail. documented in this encounter Plan of Treatment Not on filedocumented as of this encounter Visit Diagnoses Not on filedocumented in this encounter
--- OUTSIDE RECORDS SUMMARY | 2019-01-01 09:19 | XMS REPORT | Encounter Summary ---
Author Author [facility] Organization [facility] Address Unknown Phone Unavailable Care Team Providers Care Railroad Brake Repairer Name Role Phone Aidan Caraballo PCP Ramiro Collazo MD Unavailable Reason for Visit * Reason Comments Cardiac Eval inpt f/u- as/tavr eval * Consult, Test & Treat (Routine) Referred By Contact Referred To Contact Status Reason Specialty Diagnoses / Procedures Mac, Referring [facility] [address] [address] No Auth Needed Specialty Services Cardiothoracic Diagnoses Required Surgery Severe aortic stenosis Encounter Details Care Team Description Date Type Department Luis Leonard MD [address] [address] Aortic stenosis, moderate (Primary Dx); Non-small cell cancer of right lung (HCC); MDS (myelodysplastic syndrome), high grade (HCC); Pancytopenia (HCC); Chronic obstructive pulmonary disease, unspecified COPD type (HCC); CKD (chronic kidney disease) stage 3, GFR 30-59 ml/min (HCC); PAD (peripheral artery disease) (HCC); On home O2; NILA on CPAP; Hypertension, unspecified type; History of tobacco use 12/28/2018 Office Visit [facility] [address] [address] Social History Date Tobacco Use Types Packs/Day [...] 124/66 12/28/2018 1:19 PM CDT Pulse 102 - Temperature - - Respiratory Rate - 12/28/2018 1:19 PM CDT Oxygen Saturation 94% - Inhaled Oxygen - Concentration 12/28/2018 1:19 PM CDT Weight 96.6 kg (213 lb) 12/28/2018 1:19 PM CDT Height 182.9 cm (6') 12/28/2018 1:19 PM CDT Body Mass Index 28.89 documented in this encounter Functional Status Date of Assessment Functional Status Response 11/26/2018 Does the patient have a hearing impairment: Yes documented as of this encounter Progress Notes * Luis Leonard MD - 12/28/2018 1:30 PM CDT Date of Service: 12/28/2018 Subjective: Donavon Sheppard is a 73 y.o. male. History of Present IllnessWe had the pleasure of seeing Donavon Sheppard in clinic today for evaluation of their aortic valve stenosis. As you know Donavon Sheppard is a 73 y.o. 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 He was recently admitted to the hospital in November of this year for pancytopenia and shortness of breath. He had a bone marrow bi opsy that did not meet AML criteria and did not require any blood transfusions a t that time. From his murmur in [place] they found aortic valve stenosis thought to be moderate to severe and felt some of his symptoms could be related to this. They referred him to our structural heart clinic for evaluation and possible intervention. He did have 2 units of packed red blood cells approximately a wee k ago and he did receive platelets yesterday. He states he feels much improveme nt after those infusions and notices he is less fatigued and less short of breat h in general. He is on home O2 and he thinks this is also contributing to his i mprovement in symptoms. As part of their workup he had an echocardiogram here on 11/26/2018 that showed: Left Ventricle: Normal size and mass. Concentric remodeling. Normal ejection fraction. EF 60%. No regional wall motion abnormalities seen. Right Ventricle: Normal size and ejection fraction. TAPSE of 2cm. RV S' of 13 cm/s. Aortic Valve: Aortic valve is not well visualized. Appears to be calcified. V elocities are suggestive of at least moderate aortic stenosis. DI of 0.32. Peak velocity of 3.2 m/s. Calculated area of 1.2 cm2 (AVAi of 0.56 cm2/m2). Estimated Peak Systolic PA Pressure 33 mmHg That same day he had a CTA of the chest, abdomen, and pelvis that showed: CHEST: 1. Prior right lower lobectomy. Mild [...] with diffuse steatosis. 3. Distal colonic diverticulosis. He had a heart catheterization in [place] on 11/11/2018 that did not cross the aort ic valve, showed no evidence of coronary artery disease, showed normal right hea rt pressures and normal capillary wedge pressure, normal cardiac output, moderat e to severe aortic stenosis was likely, and plans were for medical management an d due to his low platelet and white blood cell count he was referred for concern s of recurrent cancer issues. In September of this year he had a carotid duplex scan completed that showed mild stenosis of the bilateral internal carotid arteries. Overall his symptoms have included shortness of breath mostly with exertion star ting in September of this year, fatigue, and centralized substernal chest pain mo stly with activity. He states he can walks approximately 75 feet before he beco mes symptomatic and needs to rest. He does state that he recover quickly. He i s unable to walk long distances and does not believe he could walk the length of the grocery store. He denies palpitations, irregular heart beats, syncope, orth opnea, paroxysmal nocturnal dyspnea, lower extremity edema, chills, fever, myalg ias, nonproductive cough, productive cough and sweats. He also denies any histor y of VA, CVA, TIA, cardiac arrhythmia, blood clots, or blood clotting disorders. He denies any allergy to nickel. Denies current rash on torso or groin area. De nies any reason or yarsani belief that would impact their care such as receivi ng blood, tissue, or animal products. They currently follow routinely with their dentist and do not have any known caries or concerns for infection. He is here today to discuss possible surgical interventions. This was all reviewed today by Dr. Dimitri Leonard III and was discussed at length wit sabina Sheppard. Review of Systems Constitution: Positive for decreased appetite and weight loss. HENT: Negative. Eyes: Negative. Cardiovascular: Positive for chest pain and dyspnea on exertion. Respiratory: Negative. Endocrine: Negative. Hematologic/Lymphatic: Bruises/bleeds easily. Skin: Negative. Musculoskeletal: Negative. Gastrointestinal: Positive for constipation. Genitourinary: Negative. Neurological: Positive for dizziness and light-headedness. Psychiatric/Behavioral: Negative. Allergic/Immunologic: Negative. Medical History: Diagnosis Date Aortic stenosis Cancer (HCC) CKD (chronic kidney disease) COPD (chronic obstructive pulmonary disease) (HCC) Heart disease History of tobacco use Hypertension MDS (myelodysplastic syndrome), high grade (HCC) Non-small cell lung cancer (HCC) On home O2 NILA on CPAP PAD (peripheral artery disease) (HCC) Pancytopenia (HCC) Sleep apnea Surgical History: Procedure Laterality Date LUNG SURGERY 2012 RLLobectomy COLONOSCOPY HX HEART CATHETERIZATION Social History Socioeconomic History Marital status: Spouse name: Not on file Number of children: Not on file Years of education: Not on file Highest education level: Not on file Occupational History Not on file Tobacco Use Smoking status: Former Smoker Packs/day: 2.00 Years: 40.00 Pack years: 80.00 Types: Cigarettes Last attempt to quit: 11/26/2012 Years since quittin.0 Smokeless tobacco: Never Used Substance and Sexual Activity Alcohol use: Not Currently Alcohol/week: 6.0 oz Types: 10 Shots of liquor per week Comment: none since Sep 2018 Drug use: Never Sexual activity: Not on file Other Topics Concern Not on file Social History Narrative Not on file Family History Problem Relation Age of Onset Cancer-Breast Mother 85 Heart Disease Mother Seizures Mother Depression Mother Cancer-Prostate Father 87 Heart Disease Father Cancer-Colon Maternal Aunt 78 Stroke Maternal Grandfather Stroke Paternal Grandfather Heart Attack Neg Hx Objective: albuterol (PROAIR HFA, VENTOLIN HFA, OR PROVENTIL HFA) 90 mcg/actuation inha ler Inhale 2 puffs by mouth into the lungs every 6 hours as needed for Wheezing or Shortness of Breath. Shake well before use. fluconazole (DIFLUCAN) 150 mg tablet Take 150 mg by mouth once. folic acid (FOLVITE) 1 mg tablet Take 1 mg by mouth daily. levoFLOXacin (LEVAQUIN) 750 mg tablet Take 750 mg by mouth once. mometasone 200 mcg/actuation HFAA Inhale 1 puff by mouth into the lungs twic e daily. omeprazole DR(+) (PRILOSEC) 20 mg capsule Take 20 mg by mouth twice daily. Prednisolone 5 mg tab Take 5 mg by mouth. Indications: 8 tablets ONCE daily simvastatin (ZOCOR) 20 mg tablet Take 20 mg by mouth at bedtime daily. temazepam (RESTORIL) 30 mg capsule Take 30 mg by mouth at bedtime daily. tiotropium (SPIRIVA WITH HANDIHALER) 18 mcg capsule for inhaler Place 18 mcg into inhaler and inhale into lungs as directed daily. Vitals: 12/28/18 1319 BP: 124/66 Pulse: 102 SpO2: 94% Weight: 96.6 kg (213 lb) Height: 1.829 m (6') Body mass index is 28.89 kg/m. Physical Exam Constitutional: He is oriented to person, place, and time. He appears well-devel oped and well-nourished. No distress. Home O2 per [place] Cardiovascular: Regular rhythm. Tachycardia present. Murmur heard. Pulmonary/Chest: Effort normal and breath sounds normal. No respiratory distress . Abdominal: Soft. Bowel sounds are normal. Musculoskeletal: Normal range of motion. He exhibits no edema. Neurological: He is alert and oriented to person, place, and time. Skin: Skin is warm and dry. He is not diaphoretic. Psychiatric: He has a normal mood and affect. His behavior is normal. Judgment a nd thought content normal. Preliminary STS today: Procedure: Isolated AVR Risk of Mortality:3.320% Renal Failure:3.036% Permanent Stroke:1.491% Prolonged Ventilation:10.295% DSW Infection:0.344% Reoperation:5.853% Morbidity or Mortality:17.698% Short Length of Stay:32.325% Long Length of Stay:10.779% Assessment: 1. Aortic stenosis, moderate 2. Non-small cell cancer of right lung (HCC) 3. MDS (myelodysplastic syndrome), high grade ([facility]) 4. Pancytopenia ([facility]) 5. Chronic obstructive pulmonary disease, unspecified COPD type ([facility]) 6. CKD (chronic kidney disease) stage 3, GFR 30-59 ml/min ([facility]) 7. PAD (peripheral artery disease) ([facility]) 8. On home O2 9. NILA on CPAP 10. Hypertension, unspecified type 11. History of tobacco use Will plan on getting JANETT to better view the valve and PFTs as well. June Bailey APRN [facility] Thoracic [facility] Cardiovascular Surgery 12/28/2018 Assessment and Plan: I had the pleasure of seeing Mr. Sheppard in the valve clinic for evaluation of h is aortic stenosis. As you may recall he is a very pleasant gentleman with a co mplex medical history. He has a history of non-small cell lung cancer was diagn osed in 2012 and treated with right lower lobectomy and chemotherapy. He also h as chronic renal insufficiency stage III, COPD, peripheral artery disease, perip heral neuropathy related to his chemo, obstructive sleep apnea, home O2 use, mye lodysplastic syndrome and pancytopenia. He was recently admitted in November for pancytopenia and shortness of breath. He is undergone work-up including a bone marrow biopsy. During that time he was diagnosed with a murmur and felt to have at least moderate aortic stenosis. He was referred for evaluation therapy. He had an echo in November of this year that showed normal left ventricular function with a mean gradient of 25 and a peak v elocity 3.2 m/s. His echo is very hard to interpret. We do not get any real good images of the a ortic valve and it is hard to be sure if this is more than moderate aortic steno sis. He did have a cardiac catheterization showed no evidence of coronary disea se but they did not cross the aortic valve or measure transvalvular gradients at that time. Dr. Clark and I had a good conversation with the patient and his . He has 2 main medical issues going on concurrently. One is his myelodysplastic syndrome and the second is possible severe aortic stenosis. We are going to get another JANETT to completely evaluate the aortic valve. If this is truly only moderate ao rtic stenosis we should probably make that secondary and let him get his myelody splastic syndrome addressed and treated. If he does have severe aortic stenosis then we will proceed with TAVR and get him through that to allow his oncologist to treat his myelodysplastic syndrome. We reviewed the risks of the procedure including bleeding, infection, stroke, di alysis and . We also discussed about the incidence of pacemaker approximat rickie 10% for TAVR. He has expressed understanding and is willing to proceed. Ou r next step will be pulmonary function test and a repeat JANETT. We will keep you updated on his progress. Dimitri Leonard M.D. documented in this encounter Plan of Treatment Order Schedule Name Priority Associated Diagnoses Ordered: 12/28/2018 PFT COMPLETE PULM FUNCTION Routine Aortic stenosis, moderate Non-small cell cancer of right lung (HCC) Hypertension, unspecified type Chronic obstructive pulmonary disease, unspecified COPD type (HCC) documented as of this encounter Visit Diagnoses Diagnosis Aortic stenosis, moderate - Primary Aortic valve disorders Non-small cell cancer of right lung (HCC) MDS (myelodysplastic syndrome), high grade (HCC) High grade myelodysplastic syndrome lesions Pancytopenia (HCC) Other pancytopenia Chronic obstructive pulmonary disease, unspecified COPD type (HCC) CKD (chronic kidney disease) stage 3, GFR 30-59 ml/min (HCC) Chronic kidney disease, Stage III (moderate) PAD (peripheral artery disease) (HCC) Peripheral vascular disease, unspecified On home O2 Dependence on supplemental oxygen NILA on CPAP Obstructive sleep apnea (adult) (pediatric) Hypertension, unspecified type History of tobacco use Personal history of tobacco use, presenting hazards to health documented in this encounter
--- OUTSIDE RECORDS SUMMARY | 2019-01-01 09:19 | XMS REPORT | Encounter Summary ---
Author Author [facility] Organization [facility] Address Unknown Phone Unavailable Care Team Providers Care Comptometer Operator Name Role Phone Aidan Caraballo PCP Ramiro Collazo MD Unavailable Reason for Referral * Radiology Services (Routine) Referred By Contact Referred To Contact Status Reason Specialty Diagnoses / Procedures Britney Dunne APRN-Hetal [address] [address] [facility] [address] [address] No Auth Needed Radiology Diagnoses Severe aortic stenosis P rocedures CTA CHEST WO/W CONTRAST+POST IMPRESSION * Radiology Services (Routine) Referred By Contact Referred To Contact Status Reason Specialty Diagnoses / Procedures Britney Dunne APRN-Hetal [address] [address] New Request Radiology Diagnoses Severe aortic stenosis P rocedures CTA ABD/PELVIS * Consult, Test & Treat (Routine) Referred By Contact Referred To Contact Status Reason Specialty Diagnoses / Procedures Cody, Ade [facility] [address] [place] [phone] No Auth Needed Specialty Services Cardiothoracic Diagnoses Required Surgery Severe aortic stenosis Reason for Visit * Reason Comments Navigation Assessment /TAVR eval Encounter Details Care Team Description Date Type Department Cynthia Hernandez RN Navigation Assessment (/TAVR eval) 12/08/2018 Patient Profile [facility] 4000 [facility] [place] [address] Social History Date Tobacco Use Types Packs/Day [...] as of this encounter Progress Notes * Cynthia Hernandez RN - 12/08/2018 3:37 PM CDT Cardiac Navigation Intake Assessment Document Patient Name: Donavon Sheppard : 1945 Insurance: Payor: MEDICARE / Plan: MEDICARE PART A AND B / Product Type: Medic are / Appointment Info: Future Appointments Date Time Provider Department Center 12/28/2018 1:00 PM Juancarlos Clark MD [facility] 12/28/2018 1:30 PM Luis [facility] 12/28/2018 2:30 [address]PITAL ROOM 1 ([facility]) CAT Radiology Diagnosis & Reason for Visit: /TAVR eval Physician Info: Referring Physician(Oncologist): Geoff Jules MD Breaker Machine Tender: Ramiro Collazo MD PCP: Aidan Caraballo DO Location of Films: Cath- Disc (syngo) Echo- In house History of Present Illness: 10/01/18 Carotid US Right:Mild disease of 1-39% with mild velocities. Antegra de vertebral flow.No previous study available for comparison. Left:Mild disease of 1-39% with mild velocities. Antegrade vertebral flow. P ossible ulceration in proximal ICA. 11/11/18 Cath 1.No angiographic evidence of coronary disease. 2.Right heart pressures are normal including a normal pulmonary capillary wedge pressure. 3.Calculated cardiac output is 4.5 liters by thermodilution and 5.9 L/min by Ann technique, which is normal. 4.Moderate to severe aortic stenosis likely ( and noted by recent echo) Plans are for medical management and because of his low platelet count and low white blood cell count, I will have him see Dr. Chase soon to make sure he is not having any recurrent cancer issues. 11/26/18 Echo Left Ventricle: Normal size and mass. Concentric remodeling. Nor mal ejection fraction. EF 60%. No regional wall [...] Estimated Peak Systolic PA Pressure 33 mmHg Medical history(Pertinent to valve workup) : Anemia, CKD, COPD, PAD, Sleep apne a- CPAP, non small cell lung cancer with resection and chemo, myelodysplastic sy ndrome Surgery/Procedure history (Pertinent to valve workup) : Carotid US, Cath & Echo (results above) Reported heart failure symptoms: fatigue, dyspnea with exertion, chest tightness NEEDS Assessment: Social Work/Financial: No need identified Physical: Indendent, uses cane & walker Communication: No needs identified Reviewed records with Britney Dunne APRN Plan: Office visit, TAVR CTA after OV Creatinine clearance: 66.946 (Weight: 215lb, Creatinine: 1.39) Comments: Spoke to Mr. Sheppard. Updated on current plan. Determined the best da te for an appointment. Educated to all appointment information. documented in this encounter Plan of Treatment Order Schedule Name Priority Associated Diagnoses Ordered: 12/08/2018 AMB REFERRAL TO CARDIOVASCULAR SURGERY Routine Severe aortic stenosis documented as of this encounter Results * CTA CHEST WO/W [...] documented in this encounter Visit Diagnoses Diagnosis Aortic stenosis, moderate - Primary Aortic valve disorders Severe aortic stenosis Aortic valve disorders documented in this encounter
--- OUTSIDE RECORDS SUMMARY | 2019-01-01 09:19 | XMS REPORT | Encounter Summary ---
Author Author [facility] Organization [facility] Address Unknown Phone Unavailable Care Team Providers Care Rn Obgyn Name Role Phone Aidan Caraballo PCP Ramiro Collazo MD Unavailable Reason for Referral * Test (Routine) Referred By Contact Referred To Contact Status Reason Specialty Diagnoses / Procedures Juancarlos Clark MD 4000 [facility] [place] [address] [facility] [address] [address] No Auth Needed Cardiology Diagnoses Severe aortic stenosis P rocedures TRANSESOPHAGEAL ECHOCARDIOGRAM IN ECHO TRANSESOPHAG R-T 2D W/PRB IMG ACQUISJ I&R Encounter Details Care Team Description Date Type Department Monica Noel RN Aortic stenosis, moderate (Primary Dx); Severe aortic stenosis 12/28/2018 Pre-Admit [facility] 4000 [facility] [place] [address] Social History Date Tobacco Use Types Packs/Day [...] as of this encounter Plan of Treatment Order Schedule Name Priority Associated Diagnoses Expected: 01/19/2019, Expires: 12/29/2019 TRANSESOPHAGEAL ECHOCARDIOGRAM Routine Severe aortic stenosis documented as of this encounter Visit Diagnoses Diagnosis Aortic stenosis, moderate - Primary Aortic valve disorders Severe aortic stenosis Aortic valve disorders documented in this encounter
--- OUTSIDE RECORDS SUMMARY | 2019-01-01 09:19 | XMS REPORT | Encounter Summary ---
Author Author [facility] Organization [facility] Address Unknown Phone Unavailable Care Team Providers Care Integrity Engineer Name Role Phone Ilya Aidan PCP Encounter Details Care Team Description Date Type Department Geoff Jules MD [address] [place] [address] [phone] 12/08/2018 Documentation The [address] [address] Social History Date Tobacco Use Types Packs/Day [...] as of this encounter Progress Notes * Robina Farmer, RN - 12/08/2018 3:03 PM CDT Spoke with Brynn at Dr. Zafar's office at [facility] in [place], [place].Let her know that Dr. Jules had spoken with Dr. Zafar regarding the patient and plan goi ng forward. Provided patients home and mobile phone number to Brynn and leo garcia that she make contact with patient for appointment. Requested fax number so office notes and bone marrow results can be faxed, Brynn provided fax of [phone]. Brynn has call back number to clinic for any further questions. documented in this encounter Plan of Treatment Not on filedocumented as of this encounter Visit Diagnoses Not on filedocumented in this encounter
--- OUTSIDE RECORDS SUMMARY | 2019-01-01 09:19 | XMS REPORT | Encounter Summary ---
Author Author [facility] Organization [facility] Address Unknown Phone Unavailable Care Team Providers Care Automotive Product Engineer Name Role Phone Aidan Caraballo PCP Ramiro Collazo MD Unavailable Reason for Visit * Reason Comments Cardiac Eval /TAVR Eval Encounter Details Care Team Description Date Type Department Juancarlos Clark MD [address] [id number] Cardiac Eval (/TAVR Eval) 12/28/2018 Office Visit [facility] [address] [phone] Social History Date Tobacco Use Types Packs/Day [...] Signs Time Taken Vital Sign Reading 12/28/2018 12:57 PM CDT Blood Pressure 124/66 12/28/2018 12:57 PM CDT Pulse 102 - Temperature - - Respiratory Rate - 12/28/2018 12:57 PM CDT Oxygen Saturation 94% - Inhaled Oxygen - Concentration 12/28/2018 12:57 PM CDT Weight 96.6 kg (213 lb) 12/28/2018 12:57 PM CDT Height 182.9 cm (6') 12/28/2018 12:57 PM CDT Body Mass Index 28.89 documented in this encounter Functional Status Date of Assessment Functional Status Response 11/26/2018 Does the patient have a hearing impairment: Yes documented as of this encounter Progress Notes * Juancarlos Clark MD - 12/28/2018 1:00 PM CDT Date of Service: 12/28/2018 Donavon Sheppard is a 73 y.o. male. HPI We had the pleasure of seeing Donavon Sheppard in clinic today for evaluation of t heir aortic valve stenosis. As you know Donavon Sheppard is a 73 y.o. 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 He was recently admitted to the hospital in November of this year for pancytop enia and shortness of breath. He had a bone marrow biopsy that did not meet AML criteria and did not require any blood transfusions at that time. From his mur mur in [place] they found aortic valve stenosis thought to be moderate to severe and felt some of his symptoms could be related to this. They referred him to [facility] for evaluation and possible intervention. He did have 2 units of packed red blood cells approximately a week ago and he did receive p latelets yesterday. He states he feels much improvement after those infusions a nd notices he is less fatigued and less short of breath in general. He is on ho me O2 and he thinks this is also contributing to his improvement in symptoms. As part of their workup [...] diverticulosis. He had a heart catheterization in [place] on 11/11/2018 that did not cross the [...] He also denies any histor y of SD, CVA, TIA, cardiac arrhythmia, blood clots, or blood clotting disorders. He denies any allergy to nickel. Denies current rash on torso or groin area. De nies any reason or temple belief that would impact their care such as receivi ng blood, tissue, or animal products. They currently follow routinely with their dentist and do not have any known caries or concerns for infection. He is here today to discuss possible surgical interventions. Vitals: 12/28/18 1257 BP: 124/66 Pulse: 102 SpO2: 94% Weight: 96.6 kg (213 lb) Height: 1.829 m (6') Body mass index is 28.89 kg/m. Past Medical History Patient Active Problem List Diagnosis Date Noted Non-small cell lung cancer (HCC) Hypertension COPD (chronic obstructive pulmonary disease) (HCC) Sleep apnea PAD (peripheral artery disease) (HCC) On home O2 NILA on CPAP History of tobacco use MDS (myelodysplastic syndrome), high grade (HCC) 12/01/2018 We reviewed Mr. Sheppard history and the results of his diagnostic tests as det nima above. We discussed with the patient and his family his diagnosis. His b one marrow biopsy showed features diagnostic of MDS. He has 7% blasts. Cytogene tics revealed complex karyotype. He had history of local right lung non-small c ell lung cancer and received adjuvant chemotherapy with cisplatin and gemcitabin e in 2012. His MDS is likely treatment [...] at 2 years. His NGS is pending Severe malnutrition (HCC) 11/29/2018 Pancytopenia (HCC) 11/26/2018 CKD (chronic kidney disease) 11/26/2018 Aortic stenosis, moderate 11/26/2018 Severe aortic stenosis 11/01/2018 CKD (chronic kidney disease) stage 3, GFR 30-59 ml/min (HCC) 05/13/2017 Chest pain on exertion 02/05/2016 Pancytopenia (HCC) 04/04/2013 Medical History: Diagnosis Date Aortic stenosis Cancer [...] Stroke Paternal Grandfather Heart Attack Neg Hx Review of Systems Constitution: Positive for decreased appetite and weight loss. HENT: Positive for hoarse voice. Eyes: Positive for blurred vision, double vision and photophobia. Cardiovascular: Positive for chest pain, dyspnea on exertion and near-syncope. Respiratory: Positive for hemoptysis and shortness of breath. Hematologic/Lymphatic: Positive for bleeding problem. Bruises/bleeds easily. Musculoskeletal: Positive for muscle weakness. Gastrointestinal: Positive for constipation. Neurological: Positive for dizziness, light-headedness, loss of balance and numb ness. Physical Exam Constitutional: He is oriented to [...] (HCC) 3. MDS (myelodysplastic syndrome), high grade (HCC) 4. Pancytopenia (HCC) 5. Chronic obstructive pulmonary disease, unspecified COPD type (HCC) 6. CKD (chronic kidney disease) stage 3, GFR 30-59 ml/min (HCC) 7. PAD (peripheral artery disease) (HCC) 8. On home O2 9. NILA on CPAP 10. Hypertension, unspecified type 11. History of tobacco use Will plan on getting JANETT to better view the valve and PFTs as well. June Bailey APRN [facility] 12/28/2018 Cardiovascular Studies ECG - ST-rate 102 Problems Addressed Today Encounter Diagnoses Name Primary? Pancytopenia (HCC) Yes Stage 3 chronic kidney disease (HCC) Aortic stenosis, moderate MDS (myelodysplastic syndrome), high grade (HCC) CKD (chronic kidney disease) stage 3, GFR 30-59 ml/min (HCC) Non-small cell cancer of right lung (HCC) Hypertension, unspecified type Chronic obstructive pulmonary disease, unspecified COPD type (HCC) PAD (peripheral artery disease) (HCC) On home O2 NILA on CPAP History of tobacco use Assessment and Plan Donavon is a 73-year-old male who were evaluating for aortic stenosis in the office today. As you recall, he has a history of non-small cell lung cancer and loy andre is being evaluated for myelodysplastic syndrome. He had an echocardiogram s uggesting at least moderate aortic stenosis, however the echocardiogram was tech nically challenging to interpret. We are planning to get him scheduled for a tr ansesophageal echocardiogram to further define his aortic valve and its severity . If he has moderate aortic stenosis, I would advocate a conservative plan of f zena and would recommend repeating his echocardiogram in 6 months. Certainl y, if the aortic stenosis appears to be severe we will need to discuss the work- up and next steps. His physical exam did demonstrate a murmur at the right uppe r sternal border, his lungs were clear to auscultation bilaterally and the remai nder the exam was mostly unremarkable. We will look for the results of his upcoming transesophageal echocardiogram to h elp in the decision making and planning for next steps. Thanks for allowing us to participate in his care. Juancarlos Clark MD Current Medications (including today's revisions) albuterol (PROAIR HFA, VENTOLIN HFA, OR PROVENTIL [...] and inhale into lungs as directed daily. documented in this encounter Plan of Treatment Order Schedule Name Priority Associated Diagnoses Ordered: 12/31/2018 ECG 12-LEAD Routine Pancytopenia (HCC) documented as of this encounter Visit Diagnoses Diagnosis Pancytopenia (HCC) - Primary Other pancytopenia Stage 3 chronic kidney disease (HCC) Aortic stenosis, moderate Aortic valve disorders MDS (myelodysplastic syndrome), high grade (HCC) High grade myelodysplastic syndrome lesions CKD (chronic kidney disease) stage 3, GFR 30-59 ml/min (HCC) Chronic kidney disease, Stage III (moderate) Non-small cell cancer of right lung (HCC) Hypertension, unspecified type Chronic obstructive pulmonary disease, unspecified COPD type (HCC) PAD (peripheral artery disease) (HCC) Peripheral vascular disease, unspecified On home O2 Dependence on supplemental oxygen NILA on CPAP Obstructive sleep apnea (adult) (pediatric) History of tobacco use Personal history of tobacco use, presenting hazards to health documented in this encounter
--- OUTSIDE RECORDS SUMMARY | 2019-01-01 09:20 | XMS REPORT | Encounter Summary ---
Author Author [facility] Organization [facility] Address Unknown Phone Unavailable Care Team Providers Care Data Center Solutions Architect Name Role Phone Aidan Caraballo PCP Reason for Visit * Reason Comments Navigation Assessment Encounter Details Care Team Description Date Type Department Geoff Jules MD [address] [place] [address] [phone] Navigation Assessment 12/02/2018 Telephone [facility] [address] [place] [phone] Social History Date Tobacco Use Types Packs/Day [...] encounter Miscellaneous Notes * Telephone Encounter - Laura Tatum RN - 12/02/2018 10:53 AM CDT Heme/BMT Navigation Intake Assessment Document Patient Name: Donavon Sheppard : 1945 Date of Referral: 11/29/2018 Diagnosis & Reason for Visit: Transplant/Treatment Options-MDS [facility]-MR: [id number] APPOINTMENT: Future Appointments Date Time Provider Department Center 12/08/2018 10:20 AM Geoff Jules MD [facility] Exam REFERRING PHYSICIAN: Healther Male FACILITY: INSURANCE: [...] [facility] Timeline of Events: DATES 11/26/2018 Labs Hemoglobin [...] syndrome (with excess blasts, type 2), hypercellular marro w (60%), ring sideroblasts (3%), trilineage dyspoiesis, mild diffuse fibrosis (W HO grade 1/3), and 7% blasts FLOW: Increased atypical myeloid blasts (7%) CTYO: In process as of 12/02/2018 FISH: FISH assays for detection of rearrangement of CBFB and [id number] (ETO)/RUNX 1 (AML1) were WNL. However, in 83.5% of interphase cells an extra [id number] (ETO) signal was present. NGS: In process [...] (H) Platelet Estimate MKD DEC Ovalocyte PRESENT Location of Films: IN HOUSE Location of Pathology: IN HOUSE NEEDS Assessment: Genetic Counseling: Assessment: Genetic Assessment: Not assessed at this time Social & Financial:Assessment: Social and Financial Assessment: Reports adequate support system Intervention: Social and Financial Intervention: Provided information about available services Spiritual & Emotional: Assessment: Spiritual and Emotional Assessment: Reports adequate support system Intervention: Spiritual and Emotional Intervention: Provided information about available servi sekou Physical: Assessment: Fall Risk: Impaired balance/mobility;Use of assistive device Intervention: Physical Needs Intervention: Patient encouraged to use oxygen therapist services for appoin tment(s) Communication: Assessment: Communication Barrier: No Onc Fertility: Assessment: Onc Fertility Assessment: Not applicable documented in this encounter Plan of Treatment Not on filedocumented as of this encounter Visit Diagnoses Not on filedocumented in this encounter
--- OUTSIDE RECORDS SUMMARY | 2019-01-01 09:22 | XMS REPORT | Encounter Summary ---
Author Author [facility] Organization [facility] Address Unknown Phone Unavailable Care Team Providers Care Network Consultant Name Role Phone Aidan Caraballo PCP Reason for Visit * Auth/Cert Referred By Contact Referred To Contact Status Reason Specialty Diagnoses / Procedures Diagnoses Pancytopenia (HCC) Encounter Details Care Team Description Date Type Department Hever Guillen MD 4000 [facility] [place] [address] 11/26/2018 Hospital [facility] [address] [address] Social History Date Tobacco Use [...] Comments Procedure Name Priority Date/Time Associated Diagnosis CT ABD/PELV W CONTRAST STAT 11/26/2018 2:[address] CHEST W CONTRAST STAT 11/26/2018 2:05 PM CDT documented in this encounter Visit Diagnoses Not on filedocumented in this encounter Administered Medications Action Date Dose Rate Site Medication Order MAR Action 11/26/2018 2:00 PM CDT 80 mL iopamidol 370 (ISOVUE-370) injection 80 Given mL 80 mL, Intravenous, ONCE, 1 dose, Thu11/26/18 at 1400, NOTE: This is a HIGH ALERT Medication., 11/26/2018 2:00 PM CDT 50 mL sodium chloride PF 0.9% injection 50 mL Given 50 mL, Intravenous, ONCE, 1 dose, Thu11/26/18 at 1400, Intra-procedure (IR) documented in this encounter
--- OUTSIDE RECORDS SUMMARY | 2019-01-01 09:22 | XMS REPORT | Encounter Summary ---
Author Author [facility] Organization [facility] Address Unknown Phone Unavailable Care Team Providers Care [employer] Agent Name Role Phone Aidan Caraballo PCP Reason for Referral * Consult, Test & Treat (Discharge Pending) Referred By Contact Referred To Contact Status Reason Specialty Diagnoses / Procedures Male, Melanie Armstrong MD [address] [address] Cc-Ww Bmt Exm [address] [place] [address] No Auth Needed Oncology Diagnoses MDS, RAEB-2 P rocedures F/U APPT REQUEST: [facility] * Consult, Test & Treat (Discharge Pending) Referred By Contact Referred To Contact Status Reason Specialty Diagnoses / Procedures Male, Melanie Armstrong MD [address] [address] Cc-Ww Bmt Ex[address] No Auth Needed Oncology Diagnoses MDS, RAEB-2 P rocedures F/U APPT REQUEST: [facility] Reason for Visit * Reason Comments Chest Pain CP/SOA x few weeks, worse today. Hx AV stinosis * Auth/Cert Referred By Contact Referred To Contact Status Reason Specialty Diagnoses / Procedures Diagnoses Pancytopenia (HCC) Encounter Details Care Team Description Date Type Department Hever Guillen MD 4000 [facility] Dept [place], [place] [id number] Sherif Moura DO 4000 [facility] [address] [place], [place] [phone] Anyi Reddy MD [address] [place], [place] [phone] Male, Melanie Armstrong MD 4000 [facility] [address] [place], [place] [id number] Pancytopenia (HCC) 11/26/2018 [facility] 12/01/[address] [place], [place] [id number] Social History Date Tobacco Use Types Packs/Day [...] Vital Signs Time Taken Vital Sign Reading 12/01/2018 11:30 AM CDT Blood Pressure 105/61 12/01/2018 11:30 AM CDT Pulse 82 12/01/2018 11:30 AM CDT Temperature 36.5 C (97.7 F) - Respiratory Rate - 12/01/2018 11:30 AM CDT Oxygen Saturation 99% - Inhaled Oxygen - Concentration 12/01/2018 4:45 AM CDT Weight 97.8 kg (215 lb 9.8 oz) 11/26/2018 8:18 PM CDT Height 182.9 cm (6') 11/26/2018 8:18 PM CDT Body Mass Index 29.24 documented in this encounter Functional Status Date of Assessment Functional Status Response 11/26/2018 Does the patient have a hearing impairment: Yes documented as of this encounter Discharge Summaries * Male, Melanie Armstrong MD - 12/01/2018 12:45 PM CDT Physician Discharge Summary Name: Kelly Yost Date Of : 1945 Age: 73 years Admit date: 11/26/2018 Discharge date: 12/01/2018 Attending Physician: Melanie Severino MD Service: Hematology Physician Summary completed by: DWIGHT JEFFERSON MD Reason for hospitalization: pancytopenia Significant PMH: Past Medical History: Diagnosis Date Cancer (HCC) COPD (chronic obstructive pulmonary disease) (HCC) Hypertension Allergies: Bactrim [sulfamethoxazole-trimethoprim] Admission Physical Exam notable for: -few small bruises on forearms and hands -midsternal II/ mid systolic murmur without radiation to carotids or subclavia ns Admission Lab/Radiology studies notable for: -Cr 1.34 -WBC 2.9 -Hgb 11.2 -Plt 48 -CT chest - prior R lower lobectomy, mild emphysema, several 5mm nodular opaciti es, ULN R hilar lymph node -CT abdomen and pelvis - distal colonic diverticulosis, diffuse hepatic steatosi s Brief Hospital Course: Kelly Stewart a 73 y.o.malewith PMH of NSCLC s/p resection, CKD, modera te , COPDwho presented to [facility] with MURRELL, pancytopenia and referred/admitte d to , now diagnosed with high-MDS. A peripheral smear from the ED was initial ly concerning for AML. However bone marrow biopsy from 11/29 did not meet AML cri teria and studies found the patient to have RAEB2 positive MDS. The patient had stable pancytopenia over admission (counts stayed similar to ones from [facility] records) and did not require any transfusions. He was discharged with followup i n Hematology with Dr Carias on 12/08 to discuss his pending cytogenetics results. From the patient's murmur, [facility] found [...] and hx of lung cancer remained stable. Condition at Discharge: Stable Discharge Diagnoses: Hospital Problems Active Problems Pancytopenia (HCC) CKD (chronic kidney disease) Aortic stenosis, moderate Severe malnutrition (HCC) MDS (myelodysplastic syndrome), high grade (HCC) Surgical Procedures: None Significant Diagnostic Studies and Procedures: noted in brief hospital course Consults: Cardiology Patient Disposition: Home with Home Health Care Patient instructions/medications: Orders/Medications for Discharges to Home and External Facilities: Activity as Tolerated It is important to keep increasing your activity level after you leave the hosp ital. Moving around can help prevent blood clots, lung infection (pneumonia) an d other problems. Gradually increasing the number of times you are up moving ar ound will help you return to your normal activity level more quickly. Continue to increase the number of times you are up to the chair and walking daily to ret urn to your normal activity level. Begin to work toward your normal activity lev el at discharge Report These Signs and Symptoms Please contact your doctor if you have any of the following symptoms: temperatu re higher than 100 degrees F, uncontrolled pain, persistent nausea and/or vomiti ng, difficulty breathing, chest pain, severe abdominal pain, unable to urinate o r unable to have bowel movement Questions About Your Stay For questions or concerns regarding your hospital stay, call [phone]. Discharging attending physician: MELANIE SEVERINO [[id number]] Regular Diet You have no dietary restriction. Please continue with a healthy balanced diet. Medication List CONTINUE taking these medications albuterol 90 mcg/actuation inhaler Commonly known as: PROAIR HFA, VENTOLIN HFA, or PROVENTIL HFA folic acid 1 mg tablet Commonly known as: FOLVITE mometasone 200 mcg/actuation Hfaa omeprazole DR(+) 20 mg capsule Commonly known as: PRILOSEC simvastatin 20 mg tablet Commonly known as: ZOCOR SPIRIVA WITH HANDIHALER 18 mcg capsule for inhaler Generic drug: tiotropium temazepam 30 mg capsule Commonly known as: RESTORIL STOP taking these medications amLODIPine 5 mg tablet Commonly known as: NORVASC Scheduled appointments: December 08, 2018 10:20 AM CDT (Arrive by 10:05 AM) New Patient with Geoff Jules MD [facility] [address] [phone] Pending items needing follow up: hematology followup cytogenetics, cardiology la ter to followup aortic stenosis Signed: DWIGHT JEFFERSON MD 12/03/2018 cc: Primary Care Physician: Aidan Caraballo Verified Referring physicians: No ref. provider found Additional provider(s): Geoff Jules MD documented in this encounter Medications at Time of Discharge Start Date End Date Medication Sig Dispensed Refills albuterol (PROAIR HFA, Inhale 2 0 VENTOLIN HFA, OR puffs by PROVENTIL HFA) 90 mouth into mcg/actuation inhaler the lungs every 6 hours as needed for Wheezing or Shortness of Breath. Shake well before use. folic acid (FOLVITE) 1 mg Take 1 mg by 0 tablet mouth daily. mometasone 200 Inhale 1 puff 0 mcg/actuation HFAA by mouth into the lungs twice daily. omeprazole DR(+) Take 20 mg by 0 (PRILOSEC) 20 mg capsule mouth twice daily. simvastatin (ZOCOR) 20 mg Take 20 mg by 0 tablet mouth at bedtime daily. temazepam (RESTORIL) 30 Take 30 mg by 0 mg capsule mouth at bedtime daily. tiotropium (SPIRIVA WITH Place 18 mcg 0 HANDIHALER) 18 mcg into inhaler capsule for inhaler and inhale into lungs as directed daily. documented as of this encounter Progress Notes * Reymundo Gonzalez - 12/01/2018 12:29 PM CDT Kelly Yost discharged on 12/01/2018. . Discharge instructions reviewed with patient. Valuables returned: . Home medications: . Functional assessment at discharge complete: Yes . * Male, Melanie Armstrong MD - 12/01/2018 6:26 AM CDT Hematology Progress Note Today's Date: 12/01/2018 Name: Kelly Yost Age: 73 y.o. Admission Date: 11/26/2018 LOS: LOS: 5 d ays Assessment Active Problems: Pancytopenia (HCC) CKD (chronic kidney disease) Aortic stenosis, moderate Severe malnutrition (HCC) Kelly Yost is a 73 y.o. male with PMH of NSCLC s/p resection, CKD, mod-sever e , COPD who presented to [facility] with MURRELL, pancytopenia and referred/admitted to , now diagnosed with high-MDS Plan #High grade MDS, +RAEB2 -[facility] labs show definite and stable pancytopenia since ~06/2018 -> WBC ~2, Hgb ~11, Plt ~50 -11/22 admit to [facility] & workup significant for Ferritin (1048), abnormal retic count. Normal coags, iron, B12, folate. -11/26 blood cx ngtd -11/26 [facility] peripheral smear, reviewed with Dr. Harris: dysplasia and probable myoblas ts not consistent with APL -s/p consented for Beat-AML trial -s/p ppx acyclovir, levaquin, micafungin -11/29 bone marrow bx: Myelodysplastic syndrome (with excess blasts, type 2), hyp ercellular marrow (60%), ring sideroblasts (3%), trilineage dyspoiesis, mild dif fuse fibrosis (WHO grade 1/3), and 7% blasts Plan: >scheduled F/U with Hematology Dr Carias 12/08 @10:20, to discuss pending cytogenetics labs for MDS >PT consulted >rec home with assistance #Moderate , with lightheadedness, MURRELL -stable murmur -11/22 [facility] did not recommend TAVR in setting of pancytopenia -11/22 [facility] LHC: no CAD, [id number] -11/26 [facility] ECHO showed EF 60%, no wall motion abnormalities, and moderate Plan: >cardiology consulted: >non-critical aortic stenosis - F/U after hematology addressed >not current candidate for TAVR due to platelets and would need plavix for 3mo post-procedure >may switch simvastatin to atorvastatin >requested cardiology valvular clinic followup in ~1month (after getting platelets and hematology stabilized/starting treatment. Concern that hematology has less symptomatic role than first thought on admission, given his count stability x3 months and symptoms with exertion) #Hx of NSCLC s/p lobe resection and chemo 2012 (stable) -2012 R lobe resection and cisplatin/gemcitibine -11/26 CT chest: mild emphysema/scarring, R hilar LN, lung nodules <5mm, and old lung resection Plan: >continue q6mo followup with oncology in [place] #Hepatic steatosis -11/11 FLP Chol 125 / TriG 117 / HDL 38 / LDL 64 -11/[address] [facility]: enlarged liver with steatosis, normal spleen -11/26 CT a/p: steatosis -11/26 AST/ALT wnl #Hyponatremia (improving) -Na ~137 -> 136 -> 133 -> 130 11/29 -> 131 11/30 -serum Osm 276. Urine Na 41. 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 Maycol Jefferson MD PGY1 Prelim Resident Pager: [phone] ATTESTATION I have personally performed a history and physical exam on the patient. I have discussed the case with the resident and concur with the resident documentation of history, physical exam, assessment, and treatment plan. Notations made by myself are in blue and in italics. Staff name: Melanie Severino MD Date: 12/01/2018 Deputy Treasurer Division of Hematologic Malignancies and Cellular Therapeutics Department of Internal Medicine [facility] Pager [phone] Subjective Kelly Yost had no acute events overnight. He reports feeling stable with ok energy today. He reports some SOB (stable) with getting up to the bathroom. He s ays this was happening at home. We discuss how this could be from his blood or h is aortic stenosis. However, with him not having leukemia and just MDS, his bloo d would seem less a severe/progressive etiology. We discussed getting establishe d with Hematology clinic first, getting stabilized, and seeing how his symptoms are, and then following with Cardiology (we requested). We think that his aortic valve may be playing a little larger role than thought on this admission. Objective Medications Scheduled Meds: albuterol (PROAIR HFA, VENTOLIN HFA, or PROVENTIL HFA) inhaler 2 puff 2 puff Inh alation BID & PRN budesonide/formoterol (SYMBICORT HFA) 160/4.5 mcg inhalation 2 puff 2 puff Inhal ation BID pantoprazole DR (PROTONIX) tablet 40 mg 40 mg Oral QDAY 30 min before breakfast polyethylene glycol 3350 (MIRALAX) packet 17 g 1 packet Oral BID simvastatin (ZOCOR) tablet 20 mg 20 mg Oral QHS tiotropium (SPIRIVA) capsule for inhaler 1 capsule 1 capsule Inhalation QDAY Continuous Infusions: PRN and Respiratory Meds:alteplase PRN (Tool Design Drafter from Rx), lidocaine PRN, ondanse shayna Q6H PRN OR ondansetron (ZOFRAN) IV Q6H PRN, senna/docusate QDAY PRN, so dium chloride 0.9 % TKO infusion PRN, sodium chloride 0.9% irrigation bottle PRN , temazepam QHS PRN Vital Signs: Last Filed In 24 Hours Vital Signs: 24 Hour Range BP: 93/58 (12/01 444) Temp: 36.4 C (97.5 F) (12/01 444) Pulse: 80 (12/02 543) Respirations: 18 PER MINUTE (12/02 543) SpO2: 96 % (12/02 543) O2 Delivery: CPAP/BiPAP (Pt Owned) (12/01 444) BP: (93-104)/(58-67) Temp: [36.4 C (97.5 F)-37.2 C (98.9 F)] Pulse: [80-91] Respirations: [16 PER MINUTE-20 PER MINUTE] SpO2: [94 %-98 %] O2 Delivery: CPAP/BiPAP (Pt Owned) Intake/Output Summary: (Last 24 hours) Intake/Output Summary (Last 24 hours) at 12/01/2018 06 Last data filed at 12/01/2018 0500 Gross per 24 hour Intake 2096 ml Output 2425 ml Net -329 ml Physical Exam: Gen: older overweight adult male in NAD Neuro: alert, oriented, no focal deficits CV: RR, distant, shifted heart sounds (due to lung resection), midsternal II/ mid systolic murmur without radiation to carotids or subclavians Pulmonary: breathing w/o accessory muscles, CTAB, no crackles/wheezes/rhonchi Abd:+bowel sounds, nondistended, nontender, soft Ext: no edema; no cyanosis; 2+ radial and pedalis pulses Lab/Radiology/Other Diagnostic Tests: Recent Labs 11/29/18 0556 11/29/18231911/30/1853112/01/18444 NA 130* 130* 131* 133* K 3.7 4.0 4.2 4.1 CL 101 103 104 105 CO2 21 19* 19* 20* GAP 8 8 8 8 BUN 16 18 16 17 CR 1.37* 1.33* 1.33* 1.39* GLU 110* 121* 132* 121* CA 8.8 8.4* 8.6 8.8 ALBUMIN 3.6 -- 3.4* 3.4* MG 2.0 -- 1.9 2.2 PO4 3.1 -- 3.1 -- Recent Labs 11/29/18 0556 11/30/18 0512/01/18444 WBC 2.3* 2.4* 2.1* HGB 9.2* 8.7* 8.6* HCT 26.4* 25.7* 24.6* PLTCT 38* 32* 47* INR 1.3* 1.3* -- PTT 26.8 26.8 -- AST 15 15 17 ALT 21 18 19 ALKPHOS 63 62 65 Estimated Creatinine Clearance: 59.1 mL/min (A) (based on SCr of 1.39 mg/dL (H)) . Vitals: 11/28/18 0232 11/30/18 0748 12/01/18 0445 Weight: 97.3 kg (214 lb 9.6 oz) 97.6 kg (215 lb 3.2 oz) 97.8 kg (215 lb 9.8 oz) No results for input(s): PHART, PO2ART in the last 72 hours. Invalid input(s): PC02A No pertinent radiology. * Gardenia Childs RN - 12/01/2018 5:26 AM CDT Shift: [id number] NEWS Score: 3, 1, 2 Pain: Denies when at rest, pt states he has mild pain in hip at times when he mo ves wrong. Nutrition: Adequate appetite and intake. Denies N/V GI/: Adequate clear, yellow urine output. LBM 11/28, miralax administered, no r eports of abdominal distention or discomfort. Activity: Up with 1x assist and walker. Last Shower: 11/30 New Events or Follow-up: Potential d/c today. * Staci Joseph - 11/30/2018 11:00 AM CDT PHYSICAL THERAPY PROGRESS NOTE MOBILITY: Progressive Mobility Level: Walk in hallway Distance Walked (feet): 200 ft Level of Assistance: Assist X1(CGA) Assistive Device: Walker Time Tolerated: 11-30 minutes Activity Limited By: Fatigue;Shortness of air SUBJECTIVE: Significant hospital events: PMH of NSCLC s/p resection and chemo, CKD, mod-lino re aortic stenosis, COPD. 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 Mental / Cognitive Status: Alert;Oriented;Cooperative Persons Present: Nursing Staff;Physical Therapist Pain: Patient has no complaint of pain Pain Interventions: Patient agrees to participate in therapy Comments: Room Air. Patient reports feeling extra weak today and is unsure about taking a walk. Discussed other options for therapy and after some motivation naye jarvis agrees to walking with therapy. Ambulation Assist: Independent Mobility in Community with Device(Cane prn ) Patient Owned Equipment: Quad Cane;Roller Walker Home Situation: Lives with Family;Has 24/7 Assistance Available(Spouse, Viktor) Type of Home: House Entry Stairs: 1-2 Stairs;No Rail(2) In-Home Stairs: Able to Live on One Level;No Stairs Comments: Denies hx of recent falls. At baseline, patient uses cane as needed fo r mobility. Recently patient has needed to use the roller walker due to fatigue and decreased balance BED MOBILITY/TRANSFERS: Bed Mobility: Supine to Sit: Independent;Head of Bed Elevated Bed Mobility: Sit to Supine: Independent;HOB Elevated Transfer Type: Sit to/from Stand Transfer: Assistance Level: To/From;Bed;Standby Assist Transfer: Assistive Device: Roller Walker Transfers: Type Of Assistance: For Safety Considerations Other Transfer Type: Sit to/from Stand Other Transfer: Assistance Level: To/From;Standby Assist(Chair follow chair) Other Transfer: Assistive Device: Roller Walker Other Transfer: Type Of Assistance: For Strength Deficit;For Safety Consideratio ns End Of Activity Status: In Bed;Instructed Patient to Request Assist with Mobilit y;Instructed Patient to Use Call Light GAIT: Gait Distance: 200 feet Gait: Assistance Level: Minimal Assist(CGA) Gait: Assistive Device: Roller Walker Gait: Descriptors: Forward trunk flexion;Pace: Slow;Swing-Through Gait;No balanc e loss;Normal step length Comments: Patient required one seated rest break due to feeling short of breath and fatigued. Patient 02 was 95% on room air after ambulation and back in room. Activity Limited By: Complaint of Fatigue;SOA EDUCATION: Comments: Discussed importance of getting up and walking throughout the day to i ncrease his strength and maintain his current strength. Discussed that he can wa lk with nursing staff as well later in the day if feeling up for it. ASSESSMENT/PROGRESS: Comments: Patient's ambulation distance is much improved. Patient reports it fel t good to get up and walk and stretch up and get out of bed. Patient is reportin g increased weakness but has shown an improvement since last session. Patient re ports feeling SOA but 02 levels were above 90% during session. Turning from your back to your side while in a flat bed without using bed rails: None Moving from lying on your back to sitting on the side of a flatbed without using bedrails : None Moving to and from a bed to a chair (including a wheelchair): A Little Standing up from a chair using your arms (e.g. wheelchair, or bedside chair): No ne To walk in hospital room: A Little Climbing 3-5 steps with a railing: A Little Raw Score: 21 Standardized (T-scale) Score: 45.55 Basic Mobility CMS 0-100%: 29.52 CMS G Code Modifier for Basic Mobility: CJ GOALS: Goal Formulation: With Patient Time For Goal Achievement: 5 days, To, 7 days Patient Will Go Supine To/From Sit: Independently Patient Will Transfer Sit to Stand: Independently Patient Will Ambulate: Greater than 200 Feet, w/ Stand By Assist Patient Will Go Up / Down Stairs: 1-2 Stairs, w/ Stand By Assist PLAN: Treatment Interventions: Mobility Training;Endurance Training Plan Frequency: 5 Days per Week PT Plan for Next Visit: Progress ambulation distance, stair training, LYNETTE forde RECOMMENDATIONS: PT Discharge Recommendations: Home with Assistance;Home Health Setting Equipment Recommendations: Patient owns necessary equipment Therapist: Staci Joseph, Student Physical therapist research program assistant Date: 11/30/2018 Associated attestation - Robina Hopkins PTA - 11/30/2018 11:35 AM CDT I was present and involved in directing the care of the patient throughout the p hysical therapy session. * Male, Melanie Armstrong MD - 11/30/2018 6:26 AM CDT Hematology Progress Note Today's Date: 11/30/2018 Name: Kelly Yost Age: 73 y.o. Admission Date: 11/26/2018 LOS: LOS: 4 d ays Assessment Active Problems: Pancytopenia (HCC) CKD (chronic kidney disease) Aortic stenosis, moderate Severe malnutrition (HCC) Kelly Yost is a 73 y.o. male with PMH of NSCLC s/p resection, CKD, mod-sever e , COPD who presented to [facility] with MURRELL, pancytopenia and referred/admitted to [facility] with now most likely MDS vs less likely AML Plan #Pancytopenia, likely MDS vs less likely AML -[facility] labs show definite and stable pancytopenia since ~06/2018 -> WBC ~2, Hgb ~11, Plt ~50 -11/22 admit to [facility] & workup significant for Ferritin (1048), abnormal retic count. Normal coags, iron, B12, folate. -11/26 blood cx ngtd -11/26 [facility] peripheral smear, reviewed with Dr. Harris: dysplasia and probable myoblas ts not consistent with APL -s/p consented for Beat-AML trial -s/p ppx acyclovir, levaquin, micafungin Plan: >F/U BM bx flow, NGS, cytogenetics, FISH >flow with atypical myeloid blasts with aberrant antigen expression, however amount is 7% and below threshold of 20% for AML >preliminary pathology doesn't appear AML >results of pending cytogenetics and final pathology read necessary to confirm diagnosis >possible DC tomorrow with clinic followup for lab results and monitoring >transfusion goals: Hgb <7.1, Plt <10, Fibrinogen <100 (irradiated) >PT consulted >rec home with assistance #Moderate , with lightheadedness, MURRELL -stable murmur -11/22 [facility] did not recommend TAVR in setting of pancytopenia -11/22 [facility] LHC: no CAD, [id number] -11/26 [facility] ECHO showed EF 60%, no wall motion abnormalities, and moderate Plan: >cardiology consulted: >non-critical aortic stenosis - F/U after hematology addressed >not current candidate for TAVR due to platelets and would need plavix for 3mo post-procedure >may switch simvastatin to atorvastatin #Hx of NSCLC s/p lobe resection and chemo 2012 (stable) -2012 R lobe resection and cisplatin/gemcitibine -11/26 CT chest: mild emphysema/scarring, R hilar LN, lung nodules <5mm, and old lung resection Plan: >continue q6mo followup with oncology in [facility] #Hepatic steatosis -11/22 [facility]d US: enlarged liver with steatosis, normal spleen -11/26 CT a/p: steatosis -11/26 AST/ALT wnl #Hyponatremia (improving) -Na ~137 -> 136 -> 133 -> 130 11/29 -> 131 11/30 -serum Osm 276. Urine Na 41. 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 5mg daily #HLD > continue ferryboat captain simvastatin #COPD > continue ferryboat captain spiriva, mometasone substitute #Insomnia > continue ferryboat captain restoril 30mg qhs prn #Hx of hemorrhoidectomies (stable) > no GI bleeding #Migraine w/ aura (stable, controlled) -ferryboat captain regimen triptan 50mg prn and ibuprofen prn PPX: FEN: none, replacing PRN, DIET immunosuppressed LDA: PIV DVT:holding chemical ppx with bleeding risk Code Status: Full Disposition: continue admit to Hematology, possible to DC tomorrow Dispo dos: will need CV followup, Heme followup Patient seen and discussed with Dr. Maycol Jefferson MD PGY1 Prelim Resident Pager: [phone] ATTESTATION I have personally performed a history and physical exam on the patient. I have discussed the case with the resident and concur with the resident documentation of history, physical exam, assessment, and treatment plan. Notations made by myself are in blue and in italics. Bm Bx reading as MDS prelim . Discussed this with patient/. After I left hospital was called by path and confirmed MDS. Will discuss with patient/ tomorrow and d/c to home with naveed magdaleno f/u. Staff name: Melanie Severino MD Date: 11/30/2018 Deputy Treasurer Division of Hematologic Malignancies and Cellular Therapeutics Department of Internal Medicine [facility] Pager [phone] Subjective Kelly Yost had no acute events overnight. He reports feeling generalized wea kness and some decreased appetite. He denies constipation, chest pain, GERD. Later on rounds, Dr Severino discussed the preliminary results with the patient dire ctly and with via speaker phone. They said they understood the result is no t finalized, but it's less likely leukemia which is a good thing. We discussed w e should get the final path tomorrow and additional genetic tests next week. Objective Medications Scheduled Meds: acyclovir (ZOVIRAX) tablet 800 mg 800 mg Oral BID albuterol (PROAIR HFA, VENTOLIN HFA, or PROVENTIL HFA) inhaler 2 puff 2 puff Inh alation BID & PRN allopurinol (ZYLOPRIM) tablet 300 mg 300 mg Oral QDAY budesonide/formoterol (SYMBICORT HFA) 160/4.5 mcg inhalation 2 puff 2 puff Inhal ation BID levoFLOXacin (LEVAQUIN) tablet 750 mg 750 mg Oral Q24H* micafungin (MYCAMINE) 50 mg in sodium chloride 0.9% (NS) 100 mL IVPB (MB+) 50 mg Intravenous QDAY pantoprazole DR (PROTONIX) tablet 40 mg 40 mg Oral QDAY 30 min before breakfast polyethylene glycol 3350 (MIRALAX) packet 17 g 1 packet Oral BID simvastatin (ZOCOR) tablet 20 mg 20 mg Oral QHS tiotropium (SPIRIVA) capsule for inhaler 1 capsule 1 capsule Inhalation QDAY Continuous Infusions: PRN and Respiratory Meds:alteplase PRN (Tool Design Drafter from Rx), ondansetron Q6H PRN OR ondansetron (ZOFRAN) IV Q6H PRN, senna/docusate QDAY PRN, sodium chloride 0 .9 % TKO infusion PRN, sodium chloride 0.9% irrigation bottle PRN, temazepam QHS PRN Vital Signs: Last Filed In 24 Hours Vital Signs: 24 Hour Range BP: 95/60 (11/30 314) Temp: 36.7 C (98 F) (11/30 314) Pulse: 86 (11/30 314) Respirations: 22 PER MINUTE (11/30 314) SpO2: 97 % (11/30 314) O2 Delivery: CPAP/BiPAP (Pt Owned) (11/30 314) BP: (94-105)/(58-68) Temp: [36.7 C (98 F)-36.9 C (98.5 F)] Pulse: [82-102] Respirations: [16 PER MINUTE-24 PER MINUTE] SpO2: [93 %-100 %] O2 Delivery: CPAP/BiPAP (Pt Owned) Intake/Output Summary: (Last 24 hours) Intake/Output Summary (Last 24 hours) at 11/30/2018 0626 Last data filed at 11/30/2018 0600 Gross per 24 hour Intake 2000 ml Output 2400 ml Net -400 ml Physical Exam: Gen: older overweight adult male in NAD Neuro: alert, oriented, no focal deficits CV: RR, distant, shifted heart sounds (due to lung resection), midsternal II/ mid systolic murmur without radiation to carotids or subclavians Pulmonary: breathing w/o accessory muscles, CTAB, no crackles/wheezes/rhonchi Abd:+bowel sounds, nondistended, nontender, soft Ext: no edema; no cyanosis; 2+ radial and pedalis pulses Lab/Radiology/Other Diagnostic Tests: Recent Labs 11/28/18 0533 11/29/18 0556 11/29/18 2320 11/30/18 0532 NA 133* 130* 130* 131* K 3.9 3.7 4.0 4.2 CL 105 101 103 104 CO2 20* 21 19* 19* GAP 8 8 8 8 BUN 17 16 18 16 CR 1.45* 1.37* 1.33* 1.33* GLU 115* 110* 121* 132* CA 8.9 8.8 8.4* 8.6 ALBUMIN 3.5 3.6 -- 3.4* MG 1.9 2.0 -- 1.9 PO4 3.3 3.1 -- 3.1 Recent Labs 11/28/18 0533 11/29/18 0556 11/30/18 0532 WBC 4.2* 2.3* 2.4* HGB 9.3* 9.2* 8.7* HCT 26.3* 26.4* 25.7* PLTCT 38* 38* 32* INR 1.2 1.3* 1.3* PTT 20.1* 26.8 26.8 AST 15 15 15 ALT 20 21 18 ALKPHOS 58 63 62 Estimated Creatinine Clearance: 61.6 mL/min (A) (based on SCr of 1.33 mg/dL (H)) . Vitals: 11/26/18 1457 11/26/18 2018 11/28/18 0232 Weight: 102.1 kg (225 lb 1.4 oz) 97.3 kg (214 lb 9.6 oz) 97.3 kg (214 lb 9.6 oz) No results for input(s): PHART, PO2ART in the last 72 hours. Invalid input(s): PC02A No pertinent radiology. * Ruby Jameson, PT - 11/29/2018 10:16 AM CDT PHYSICAL THERAPY ASSESSMENT MOBILITY: Progressive Mobility Level: Walk in hallway Distance Walked (feet): 115 ft Level of Assistance: Stand by assistance Assistive Device: Walker Time Tolerated: 11-30 minutes Activity Limited By: Fatigue;Shortness of air SUBJECTIVE: Significant hospital events: PMH of NSCLC s/p resection and chemo, CKD, mod-lino re aortic stenosis, COPD. 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 Mental / Cognitive Status: Alert;Oriented;Cooperative;Follows Commands Persons Present: Spouse;Provider(biopsy tech arrives at end of therapy session) Pain: Patient has no complaint of pain Pain Interventions: Patient agrees to participate in therapy Comments: Room Air. Ambulation Assist: Independent Mobility in Community with Device(cane prn ) Patient Owned Equipment: Quad Cane;Roller Walker Home Situation: Lives with Family;Has 02/03 Assistance Available(spouse, Viktor) Type of Home: House Entry Stairs: 1-2 Stairs;No Rail(2) In-Home Stairs: Able to Live on One Level;No Stairs Comments: Denies hx of recent falls. At baseline, patient uses cane as needed fo r mobility. Recently patient has needed to use the roller walker due to fatigue and decreased balance. 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 BED MOBILITY/TRANSFERS: Bed Mobility: Supine to Sit: Standby Assist;Head of Bed Elevated Bed Mobility: Sit to Supine: Standby Assist;HOB Elevated Transfer Type: Sit to/from Stand Transfer: Assistance Level: To/From;Bed;Standby Assist Transfer: Assistive Device: Roller Walker Transfers: Type Of Assistance: For Safety Considerations End Of Activity Status: In Bed;Nursing Notified BALANCE: Sitting Balance: Static Sitting Balance;No UE Support;2 UE Support;Independent Standing Balance: Static Standing Balance;Dynamic Standing Balance;2 UE support; Standby Assist GAIT: Gait Distance: 115 feet Gait: Assistance Level: Standby Assist Gait: Assistive Device: Roller Walker Gait: Descriptors: Forward trunk flexion;Pace: Slow;Swing-Through Gait;No balanc e loss;Normal step length Comments: Steady with use of RW. Trialed short distance ambulation in room with cane, patient requiring MIN assist due to unsteadiness. Reaching for furniture w ith other hand for added stability. Activity Limited By: Complaint of Fatigue;SOA Comments: SpO2 monitored throughout activity, remaining > 90%. Although patient reports SOA and difficulty breathing. EDUCATION: Persons Educated: Patient Patient Barriers To Learning: None Noted Teaching Methods: Verbal Instruction;Demonstration Patient Response: Verbalized Understanding;Return Demonstration Topics: Plan/Goals of PT Interventions;Use of Assistive Device/Orthosis;Mobility Progression;Safety Awareness;Up with Assist Only;Importance of Increasing Activ ity;Ambulate With Nursing;Therapy Schedule ASSESSMENT/PROGRESS: Impaired Mobility Due To: Safety Concerns;Decreased Activity Tolerance;Deconditi oning Assessment/Progress: Should Improve w/ Continued PT Comments: Patient mobility currently limited by decreased endurance. Will benefi t from ongoing therapy to increase mobilization and promote functional independe nce prior to discharge. Turning from your back to your side while in a flat bed without using bed rails: None Moving from lying on your back to sitting on the side of a flatbed without using bedrails : None Moving to and from a bed to a chair (including a wheelchair): A Little Standing up from a chair using your arms (e.g. wheelchair, or bedside chair): No ne To walk in hospital room: A Little Climbing 3-5 steps with a railing: A Little Raw Score: 21 Standardized (T-scale) Score: 45.55 Basic Mobility CMS 0-100%: 29.52 CMS G Code Modifier for Basic Mobility: CJ GOALS: Goal Formulation: With Patient Time For Goal Achievement: 5 days, To, 7 days Patient Will Go Supine To/From Sit: Independently Patient Will Transfer Sit to Stand: Independently Patient Will Ambulate: Greater than 200 Feet, w/ Stand By Assist(w/least restric tive device) Patient Will Go Up / Down Stairs: 1-2 Stairs, w/ Stand By Assist(no rail) PLAN: Treatment Interventions: Mobility Training;Endurance Training Plan Frequency: 5 Days per Week PT Plan for Next Visit: Progress ambulation distance, cane vs. walker, possibly stair training. Likely assign to mobility aide for endurance training. RECOMMENDATIONS: PT Discharge Recommendations: Home with Assistance;Home Health Setting Equipment Recommendations: Patient owns necessary equipment Therapist: Ruby Jameson PT, DPT [id number] Date: 11/29/2018 * Page Bourgeois - 11/29/2018 9:50 AM CDT CLINICAL NUTRITION Clinical Nutrition Assessment Summary NAME:Kelly Yost :1945 AGE: 73 y.o. ADMISSION DATE: 11/26/2018 DAYS ADMITTED: LOS: 3 days Nutrition Assessment of Patient: BMI Categories Adult: Over Weight: 25-29.9 Unintentional Weight Loss: > 5% in 1 month (severe)(10%) Malnutrition Assessment: Malnutrition present Current Oral Intake: Adequate Estimated Calorie Needs: 8131-1751(28-33kcal/kg of dw 83kg) Estimated Protein Needs: 125(1.5g/kg of dw 83kg) Oral Diet Order: Immunosuppressed Oral Supplement: Boost Plus, With Meals, TID ICD-10 code E43: Chronic illness/Severe malnutrition Energy intake: 75% or less of estimated energy requirement for 1 month or more, Weight loss: > 5% x 1 month Edema: Yes Mild Malnutrition Interventions: Reviewed kcal/protein goals, encouraged supplements in addition to meal intake Comments: Pt admitted with pancytopenia with probable AML vs MDS. BMBx pending today. PMH of NSCLC s/p resection and chemo, CKD, moderate-severe Aortic Stenosis, and COPD . Pt reported weight loss and decreased appetite on screening. He reported a UBW of 239# x 1 month ago and attributes weight loss to decreased PO intake since 2018 when illness started. Current wt of 214# (standing scale). Pt reports d nuvia's visit wt of 225#, 1 wk ago. A 15% loss x 1 month and a 5% loss x 1 wk ar e severe. Per food recall, pt with decreased intake and supplementing non-plus v arieties of Boost MANAGER GARAGE. Pt meets criteria for malnutrition. Pt reports fair appet ite, but remains motivated to eat. Per documentation, pt consumed 100% x 1 meals on 11/28 and 100% x 3 meals on 11/27. Pt reports eating a large, late breakfast on 11/28, leaving little room for further intake. He reported one Boost Plus yeste rday. ANC 0.81. Reviewed purpose and guidelines of the immunosuppressed diet. Di scussed diet goals of maintaining adequate kcal/protein. Encouraged use of Boost Plus as carton to minimize volume and/or ice cream protein shakes if not meeting meal goals. No pressure injuries or significant edema. Pt denies GI distress. Last BM 11/26; on bowel meds. Note Na+ 130. Pt and were receptive to educati on and recommendations provided. Recommendation: Continue current diet. Encourage protein at all meals and use of Boost Plus betw een meals BID + PRN. Intervention / Plan: modified supplement Monitor PO intake, wt, labs, skin, gi, meds, fluids Nutrition Diagnosis: Increased nutrient needs, specify: Etiology: kcal/protein: malnutrition Signs & Symptoms: >5% wt loss x 1 month, <75% energy intake x 1 month Goals: Patient to consume >75% of meals/supplements Time Frame: Throughout Stay Page Bourgeois, RENATO, LD *[id number] * Male, Melanie Armstrong MD - 11/29/2018 6:30 AM CDT Hematology Progress Note Today's Date: 11/29/2018 Name: Kelly Yost Age: 73 y.o. Admission Date: 11/26/2018 LOS: LOS: 3 d ays Assessment Active Problems: Pancytopenia (HCC) CKD (chronic kidney disease) Aortic stenosis, moderate Kelly Yost is a 73 y.o. male with PMH of NSCLC s/p resection, CKD, mod-sever e , COPD who presents from [facility] with MURRELL, abnormal CBCs and looking for 2nd opinion, and is admitted for pancytopenia with probable AML vs MDS Plan #Pancytopenia, probable AML vs MDS #Presenting syndrome of fevers, fatigue, MURRELL, weakness, weight loss, decreased P O intake, lightheadedness -[place] labs show definite but stable pancytopenia since 06/2018 -> WBC ~2, Hgb ~11, Plt ~50 -11/22 admit to [place] & workup significant for Ferritin (1048), Copper (1.6), not increased absolute retic count. Normal coags, iron, B12, folate. -11/26 blood cx ngtd -11/26 [facility] peripheral smear, reviewed with Dr. 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 Also given history of cis platin use Plan: >F/U BM bx flow, NGS, cytogenetics, FISH >anticipate starting Beat-AML trial (if enough sample for trial labs) >cont ppx acyclovir 800mg BID, levaquin 750mg daily, micafungin 50mg IV daily #Risk of DIC/TLS >daily DIC/TLS labs >cont allopurinol 300mg daily >transfusion goals: Hgb <7.1, Plt <10, Fibrinogen <100 (irradiated) #Mod-severe , with lightheadedness, MURRELL -stable murmur -11/22 [place] [facility] did not recommend TAVR in setting of pancytopenia -11/22 [place] LHC: no CAD, [id number] -11/26 [facility] ECHO showed EF 60%, no wall motion abnormalities, and moderate Plan: >cardiology consulted: >agree with bigger issue of hematology (in regards to sx and also to precluding procedure) >non-critical aortic stenosis - F/U after hematology addressed >not current candidate for TAVR due to platelets and would need plavix for 3mo post-procedure >may switch simvastatin to atorvastatin #Hyponatremia -Na ~137 -> 136 -> 133 -> 130 11/29 -serum Osm 276. Urine Na 41. Urine Osm 236 -11/15/18 [place] TSH 3.03 -ddx: low osmolar intake, SIADH, adrenal, cardiac third spacing Plan: >order 500cc NS bolus and repeat BMP #CKD -Cr ~1.3 baseline -> 1.3 -> 1.45 -> 1.37 -11/26 CT a/p: kidneys unremarkable Plan: >encourage PO intake #Hx of NSCLC s/p lobe resection and chemo 2012 (stable) -2012 R lobe resection and cisplatin/gemcitibine -11/26 CT chest: mild emphysema/scarring, R hilar LN, lung nodules <5mm, and old lung resection Plan: >continue q6mo followup with oncology in [place] #Steatosis -11/22 [facility] abd US: enlarged liver with steatosis, normal spleen -11/26 CT a/p: steatosis -11/26 AST/ALT wnl #New RIOS (resolved) #New vision change (resolved) #Migraine w/ aura (stable, controlled) -ferryboat captain regimen triptan 50mg prn and ibuprofen prn -concern for regular tension headache but consider SERVICE ENGINE REPAIRER involvement of likely sana kemia Plan: >low threshold for MRI, LP if develops focal-findings, worsening RIOS #GERD Plan: > continue ferryboat captain pantoprazole 40mg daily > order GI cocktail once today #Constipation > start miralax bid #HTN > holding ferryboat captain amlodipine 5mg daily #HLD > continue ferryboat captain simvastatin #COPD > continue ferryboat captain spiriva, mometasone substitute #Insomnia > continue ferryboat captain restoril 30mg qhs prn #Hx of hemorrhoidectomies (stable) > no GI bleeding PPX: FEN: none, replacing PRN, DIET immunosuppressed LDA: PIV DVT:holding chemical ppx with bleeding risk Code Status: Full Disposition: continue admit to Hematology DC: possible will require [facility] Patient seen and discussed with Dr. Maycol Jefferson MD PGY1 Prelim Resident Pager: [phone] ATTESTATION I have personally performed a history and physical exam on the patient. I have discussed the case with the resident and concur with the resident documentation of history, physical exam, assessment, and treatment plan. Notations made by myself are in blue and in italics. 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 Staff name: Melanie Severino MD Date: 11/29/2018 Deputy Treasurer Division of Hematologic Malignancies and Cellular Therapeutics Department of Internal Medicine [facility] Pager [phone] Subjective Kelly Yost had no acute events overnight. He reports having increased energy today from yesterday. He reports constipation and will take a laxative. He also shares he has a history of neuropathy, and proximal weakness which affects his walking. He denies fever, chills, chest pain, stomach pain, n/v, bleeding. Objective Medications Scheduled Meds: acyclovir (ZOVIRAX) tablet 800 mg 800 mg Oral BID allopurinol (ZYLOPRIM) tablet 300 mg 300 mg Oral QDAY budesonide/formoterol (SYMBICORT HFA) 160/4.5 mcg inhalation 2 puff 2 puff Inhal ation BID levoFLOXacin (LEVAQUIN) tablet 750 mg 750 mg Oral Q24H* micafungin (MYCAMINE) 50 mg in sodium chloride 0.9% (NS) 100 mL IVPB (MB+) 50 mg Intravenous QDAY pantoprazole DR (PROTONIX) tablet 40 mg 40 mg Oral QDAY 30 min before breakfast polyethylene glycol 3350 (MIRALAX) packet 17 g 1 packet Oral BID simvastatin (ZOCOR) tablet 20 mg 20 mg Oral QHS tiotropium (SPIRIVA) capsule for inhaler 1 capsule 1 capsule Inhalation QDAY Continuous Infusions: PRN and Respiratory Meds:albuterol PRN, alteplase PRN (Tool Design Drafter from Rx), ondanse shayna Q6H PRN OR ondansetron (ZOFRAN) IV Q6H PRN, senna/docusate QDAY PRN, so dium chloride 0.9 % TKO infusion PRN, sodium chloride 0.9% irrigation bottle PRN , temazepam QHS PRN Vital Signs: Last Filed In 24 Hours Vital Signs: 24 Hour Range BP: 109/60 (11/29 0500) Temp: 36.4 C (97.5 F) (11/29 0500) Pulse: 85 (11/29 0534) Respirations: 16 PER MINUTE (11/29 0534) SpO2: 98 % (11/29 0534) O2 Delivery: None (Room Air) (11/29 0500) SpO2 Pulse: 90 (11/28 1600) BP: (90-118)/(55-67) Temp: [36.2 C (97.2 F)-36.9 C (98.4 F)] Pulse: [79-97] Respirations: [15 PER MINUTE-28 PER MINUTE] SpO2: [93 %-100 %] O2 Delivery: None (Room Air) Intake/Output Summary: (Last 24 hours) Intake/Output Summary (Last 24 hours) at 11/29/2018 0630 Last data filed at 11/29/2018 0500 Gross per 24 hour Intake 280 ml Output 1375 ml Net -1095 ml Physical Exam: Gen: older overweight adult male in NAD Neuro: alert, oriented, difficulty with serial-7s CV: RR, distant, shifted heart sounds (due to lung resection), midsternal II/ mid systolic murmur without radiation to carotids or subclavians Pulmonary: breathing w/o accessory muscles, CTAB, no crackles/wheezes/rhonchi Abd:+bowel sounds, nondistended, nontender, soft Ext: no edema; no cyanosis; 2+ radial and pedalis pulses Lab/Radiology/Other Diagnostic Tests: Recent Labs 11/26/18 1124 11/27/18 0606 11/28/18 0533 NA 134* 136* 133* K 4.5 4.1 3.9 CL 103 107 105 CO2 21 22 20* GAP 10 7 8 BUN 20 17 17 CR 1.34* 1.30* 1.45* GLU 118* 116* 115* CA 9.6 8.7 8.9 ALBUMIN 4.2 3.6 3.5 MG -- 2.0 1.9 PO4 -- 2.9 3.3 Recent Labs 11/26/18 1124 11/27/18 0606 11/28/18 0533 WBC 2.9* 2.0* 4.2* HGB 11.2* 10.1* 9.3* HCT 31.4* 27.9* 26.3* PLTCT 48* 40* 38* INR -- 1.1 1.2 PTT -- 23.6* 20.1* AST 35 22 15 ALT 38 25 20 ALKPHOS 73 59 58 Estimated Creatinine Clearance: 56.5 mL/min (A) (based on SCr of 1.45 mg/dL (H)) . Vitals: 11/26/18 1457 11/26/18 2018 11/28/18 0232 Weight: 102.1 kg (225 lb 1.4 oz) 97.3 kg (214 lb 9.6 oz) 97.3 kg (214 lb 9.6 oz) No results for input(s): PHART, PO2ART in the last 72 hours. Invalid input(s): PC02A No pertinent radiology. * Dara Sampson, RT - 11/29/2018 5:43 AM CDT RT Adult Assessment Note NAME:Kelly Yost :1945 AGE: 73 y.o. ADMISSION DATE: 11/26/2018 DAYS ADMITTED: LOS: 3 days RT Treatment Plan: Protocol Plan: Medications Albuterol: MDI BID;MDI PRN Tiotropium: MDI Q Day Protocol Plan: Procedures Oxygen/Humidity: O2 to keep SpO2 > 95% Monitoring: Pulse oximetry continuous during night/sleep Comment: Symbicort BID, HX NILA, Hgb < 10 Additional Comments: Impressions of the patient: Awake watching TV no distress Intervention(s)/outcome(s): Re-eval completed, Scheduled Albuterol per pt reques t Patient education that was completed: Education regarding spacer and proper tech nique Recommendations to the care team: none Vital Signs: Pulse: 85 RR: 16 PER MINUTE SpO2: 98 % O2 Device: Liter Flow: O2%: 21 % Breath Sounds: Clear (implies normal) Respiratory Effort: Non-Labored * Diego Ramirez RN - 11/28/2018 7:25 AM CDT Shift: Night NEWS Score: 1914-3 (SBP 100, SpO2 95%) 2220-3 (SBP 100, SpO2 95%) 0232-1 (SpO2 95%) 0526-0 Pain: Patient c/o dull headache and generalized aching all over this AM. X 1 dos e of tylenol given. Nutrition: Regular diet. Encouraged PO intake overnight. GI/: Voiding adequate amount of yellow urine overnight. Last BM 4/19 MANAGER GARAGE per patient. No c/o N/V overnight. Activity: Patient up with SBA with cane. Patient did not get up this shift. Family: None present. Last Shower: 11/27 New Events or Follow-up: -Plan for bmx Thursday -Awaiting labs this AM. * Anyi Reddy MD - 11/28/2018 6:23 AM CDT Hematology Progress Note Today's Date: 11/28/2018 Name: Kelly Yost Age: 73 y.o. Admission Date: 11/26/2018 LOS: LOS: 2 d ays Assessment Active Problems: Pancytopenia (HCC) CKD (chronic kidney disease) Aortic stenosis, moderate Kelly Yost is a 73 y.o. 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 Normal coags, iron, B12, folate. -11/26 blood cx ngtd -11/26 [facility] peripheral smear, reviewed with Dr. 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 Also given history of cis platin use Plan: >plan for BM bx tomorrow. F/U results to goal of starting chemotherapy trial >cont ppx acyclovir 800mg BID, levaquin 750mg daily, micafungin 50mg IV daily #Risk of DIC/TLS >daily DIC/TLS labs >cont allopurinol 300mg daily >transfusion goals: Hgb <7.1, Plt <10, Fibrinogen <100 (irradiated) #Mod-severe , with lightheadedness, MURRELL -11/22 [facility] Cardiology did not recommend TAVR in setting of pancytopenia -11/22 [facility] LHC: no CAD, [id number] -11/26 [facility] ECHO showed EF 60%, no wall motion abnormalities, and moderate Plan: >cardiology consulted: >agree with bigger issue of hematology (in regards to sx and also to precluding procedure) >non-critical aortic stenosis - F/U after hematology addressed >not current candidate for TAVR due to platelets and would need plavix for 3mo post-procedure >may switch simvastatin to atorvastatin #Hx of NSCLC s/p lobe resection and chemo 2012 (stable) -2012 R lobe resection and cisplatin/gemcitibine -11/26 CT chest: mild emphysema/scarring, R hilar LN, lung nodules <5mm, and old lung resection Plan: >continue q6mo followup with oncology in [place] #Steatosis -11/22 [facility] abd US: enlarged liver with steatosis, normal spleen -11/26 CT a/p: steatosis -11/26 AST/ALT wnl #CKD -Cr ~1.3 baseline -> 1.3 -> 1.45 -11/26 CT a/p: kidneys unremarkable Plan: >encourage PO intake, consider labs if not improving #New RIOS (resolved) #New vision change (resolved) #Migraine w/ aura (stable, controlled) -ferryboat captain regimen triptan 50mg prn and ibuprofen prn -concern for regular tension headache but consider SERVICE ENGINE REPAIRER involvement of likely sana kemia Plan: >low threshold for MRI, LP if develops focal-findings, worsening RIOS #GERD Plan: > continue ferryboat captain pantoprazole 40mg daily > order GI cocktail once today #HTN > holding ferryboat captain amlodipine 5mg daily #HLD > continue ferryboat captain simvastatin #COPD > continue ferryboat captain spiriva, mometasone substitute #Insomnia > continue ferryboat captain restoril 30mg qhs prn #Hx of hemorrhoidectomies (stable) > no GI bleeding PPX: FEN: none, replacing PRN, DIET immunosuppressed LDA: PIV DVT:holding chemical ppx with bleeding risk Code Status: Full Disposition: continue admit to Hematology Patient seen and discussed with Dr. Maureen Jefferson MD PGY1 Prelim Resident Pager: [phone] ATTESTATION I have personally performed a history and physical exam on the patient. I have discussed the case with the resident and concur with the resident documentation of history, physical exam, assessment, and treatment plan. Staff name: Anyi Reddy MD Date: 11/28/2018 [employer] Division of Hematologic Malignancies and Cellular Therapeutics Pager [phone] Subjective Kelly Yost had no acute events overnight. He reports feeling tired/weak toda y. He also reports continued upper gastric/chest pain that is better with palpat ion/massage. He denies fever, mouth pain, SOB, lightheadedness, swelling, rash. Objective Medications Scheduled Meds: acyclovir (ZOVIRAX) tablet 800 mg 800 mg Oral BID allopurinol (ZYLOPRIM) tablet 300 mg 300 mg Oral QDAY budesonide/formoterol (SYMBICORT HFA) 160/4.5 mcg inhalation 2 puff 2 puff Inhal ation BID levoFLOXacin (LEVAQUIN) tablet 750 mg 750 mg Oral Q24H* micafungin (MYCAMINE) 50 mg in sodium chloride 0.9% (NS) 100 mL IVPB (MB+) 50 mg Intravenous QDAY pantoprazole DR (PROTONIX) tablet 20 mg 20 mg Oral BID simvastatin (ZOCOR) tablet 20 mg 20 mg Oral QHS tiotropium (SPIRIVA) capsule for inhaler 1 capsule 1 capsule Inhalation QDAY Continuous Infusions: PRN and Respiratory Meds:albuterol PRN, alteplase PRN (Tool Design Drafter from Rx), ondanse shayna Q6H PRN OR ondansetron (ZOFRAN) IV Q6H PRN, senna/docusate QDAY PRN, so dium chloride 0.9 % TKO infusion PRN, sodium chloride 0.9% irrigation bottle PRN , temazepam QHS PRN Vital Signs: Last Filed In 24 Hours Vital Signs: 24 Hour Range BP: 112/62 (11/28 525) Temp: 37 C (98.6 F) (11/28 525) Pulse: 83 (11/28 525) Respirations: 16 PER MINUTE (11/28 525) SpO2: 96 % (11/28 525) O2 Delivery: None (Room Air) (11/28 525) BP: (100-112)/(58-66) Temp: [36.3 C (97.4 F)-37.4 C (99.4 F)] Pulse: [77-88] Respirations: [16 PER MINUTE-20 PER MINUTE] SpO2: [95 %-99 %] O2 Delivery: None (Room Air) Intake/Output Summary: (Last 24 hours) Intake/Output Summary (Last 24 hours) at 11/28/2018 06 Last data filed at 11/28/2018 0528 Gross per 24 hour Intake 1220 ml Output 1850 ml Net -630 ml Physical Exam: Gen: older overweight adult male in NAD CV: RR, distant, shifted heart sounds (due to lung resection), midsternal II/ mid systolic murmur without radiation to carotids or subclavians Pulmonary: breathing w/o accessory muscles, CTAB, no crackles/wheezes/rhonchi Abd:+bowel sounds, nondistended, nontender, soft Ext: no edema; no cyanosis; 2+ radial and pedalis pulses Lab/Radiology/Other Diagnostic Tests: Recent Labs 11/26/18 1124 11/27/18 0606 NA 134* 136* K 4.5 4.1 CL 103 107 CO2 21 22 GAP 10 7 BUN 20 17 CR 1.34* 1.30* GLU 118* 116* CA 9.6 8.7 ALBUMIN 4.2 3.6 MG -- 2.0 PO4 -- 2.9 Recent Labs 11/26/18 1124 11/27/18 0606 WBC 2.9* 2.0* HGB 11.2* 10.1* HCT 31.4* 27.9* PLTCT 48* 40* INR -- 1.1 PTT -- 23.6* AST 35 22 ALT 38 25 ALKPHOS 73 59 Estimated Creatinine Clearance: 63 mL/min (A) (based on SCr of 1.3 mg/dL (H)). Vitals: 11/26/18 1457 11/26/18 2018 11/28/18 0232 Weight: 102.1 kg (225 lb 1.4 oz) 97.3 kg (214 lb 9.6 oz) 97.3 kg (214 lb 9.6 oz) No results for input(s): PHART, PO2ART in the last 72 hours. Invalid input(s): PC02A No pertinent radiology. * Diego Ramirez RN - 11/27/2018 9:25 PM CDT .Patient arrived to room # (53150) via bed accompanied by transport. Patient tra nsferred to the bed with assistance. Bedside safety checks completed. Initial pa tient assessment completed, refer to flowsheet for details. Oriented patient to room, bed in low position, call light within reach. Admission skin assessment completed by: (Diego Ramirez RN and Marily Marc) * Anyi Reddy MD - 11/27/2018 7:22 AM CDT Hematology Progress Note Today's Date: 11/27/2018 Name: Kelly Yost Age: 73 y.o. Admission Date: 11/26/2018 LOS: LOS: 1 d ay Assessment Active Problems: Pancytopenia (HCC) CKD (chronic kidney disease) Aortic stenosis, moderate Kelly Yost is a 73 y.o. 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 Normal coags, iron, B12, folate. -11/26 blood cx ngtd -11/26 [facility] peripheral smear, reviewed with Dr. 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 Also given history of cis platin use Plan: >anticipate starting chemotherapy trial and bone marrow biopsy on Thursday >cont ppx acyclovir 800mg BID, levaquin 750mg daily, micafungin 50mg IV daily #Risk of DIC/TLS >daily DIC/TLS labs >cont allopurinol 300mg daily >transfusion goals: Hgb <7.1, Plt <10, Fibrinogen <100 (irradiated) #Mod-severe , with lightheadedness, MURRELL -11/22 [facility] Cardiology did not recommend TAVR in setting of pancytopenia -11/22 [facility] LHC: no CAD, [id number] -11/26 [facility] ECHO showed EF 60%, no wall motion abnormalities, and moderate Plan: >cardiology consulted: >non-critical aortic stenosis >agree with bigger issue of hematology (in regards to sx and also to precluding procedure) >not current candidate for TAVR due to platelets and would need plavix for 3mo post-procedure >F/U with cardiology after hematology addressed >may switch simvastatin to atorvastatin #New RIOS #New vision change #Migraine w/ aura (stable, controlled) -ferryboat captain regimen triptan 50mg prn and ibuprofen prn -non-focal exam -concern for regular tension headache but consider SERVICE ENGINE REPAIRER involvement of likely sana kemia Plan: >low threshold for MRI, LP if develops focal-findings, worsening RIOS #Steatosis -11/22 [facility] abd US: enlarged liver with steatosis, normal spleen -11/26 CT a/p: steatosis -11/26 AST/ALT wnl #CKD (stable, ~1.3) #HTN > holding 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 captain 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 5mg daily #HLD > continue ferryboat captain simvastatin #COPD > continue ferryboat captain spiriva, mometasone substitute #GERD > continue ferryboat captain omeprazole 20mg daily #Insomnia > continue ferryboat captain restoril 30mg qhs prn #Hx of hemorrhoidectomies (stable) > no GI bleeding #Hx of NSCLC s/p lobe resection and chemo 2012 (stable) -2012 R lobe resection and cisplatin/gemcitibine -11/26 CT chest: R hilar LN, lung nodules <5mm, and old lung resection Plan: >continue q6mo followup with oncology in [place] PPX: FEN: none, replacing PRN, DIET immunosuppressed LDA: PIV DVT:holding chemical ppx with bleeding risk Code Status: Full Disposition: Admit to Hematology Patient seen and discussed with Dr. Maureen Jefferson MD PGY1 Prelim Resident Pager: [phone] ATTESTATION I have personally performed a history and physical exam on the patient. I have discussed the case with the resident and concur with the resident documentation of history, physical exam, assessment, and treatment plan. Staff name: Anyi Reddy MD Date: 11/27/2018 [employer] Division of Hematologic Malignancies and Cellular Therapeutics Pager [phone] Subjective Kelly Yost had no acute events overnight. He reports feeling better in so mu ch being more at ease after having the plan explained. He denies f/c, SOB, swell ing, mouth pain, bleeding. He has mild epigastric/lower chest pain that is worse with exertion but better with palpation/soft massage. Objective Medications Scheduled Meds: acyclovir (ZOVIRAX) tablet 800 mg 800 mg Oral BID allopurinol (ZYLOPRIM) tablet 300 mg 300 mg Oral QDAY budesonide/formoterol (SYMBICORT HFA) 160/4.5 mcg inhalation 2 puff 2 puff Inhal ation BID levoFLOXacin (LEVAQUIN) tablet 750 mg 750 mg Oral Q24H* micafungin (MYCAMINE) 50 mg in sodium chloride 0.9% (NS) 100 mL IVPB (MB+) 50 mg Intravenous QDAY pantoprazole DR (PROTONIX) tablet 20 mg 20 mg Oral BID simvastatin (ZOCOR) tablet 20 mg 20 mg Oral QHS tiotropium (SPIRIVA) capsule for inhaler 1 capsule 1 capsule Inhalation QDAY Continuous Infusions: PRN and Respiratory Meds:albuterol PRN, alteplase PRN (Tool Design Drafter from Rx), ondanse shayna Q6H PRN OR ondansetron (ZOFRAN) IV Q6H PRN, senna/docusate QDAY PRN, so dium chloride 0.9 % TKO infusion PRN, sodium chloride 0.9% irrigation bottle PRN , temazepam QHS PRN Vital Signs: Last Filed In 24 Hours Vital Signs: 24 Hour Range BP: 100/65 (11/26 2253) Temp: 36.6 C (97.8 F) (11/26 2253) Pulse: 83 (11/26 2253) Respirations: 18 PER MINUTE (11/26 2253) SpO2: 94 % (11/26 2253) O2 Delivery: None (Room Air) (11/26 2253) SpO2 Pulse: 93 (11/26 1830) Height: 182.9 cm (72") (11/26 2017) BP: (91-141)/(59-97) Temp: [36.2 C (97.1 F)-36.7 C (98 F)] Pulse: [81-105] Respirations: [9 PER MINUTE-24 PER MINUTE] SpO2: [93 %-100 %] O2 Delivery: None (Room Air) Intake/Output Summary: (Last 24 hours) Intake/Output Summary (Last 24 hours) at 11/27/2018 07 Last data filed at 11/27/2018 0317 Gross per 24 hour Intake 740 ml Output 575 ml Net 165 ml Physical Exam: Gen: older overweight adult male in NAD CV: RR, distant, shifted heart sounds (due to lung resection), midsternal II/ mid systolic murmur without radiation to carotids or subclavians, no JVD, no car otid bruits Pulmonary: breathing w/o accessory muscles, CTAB, no crackles/wheezes/rhonchi Abd:+bowel sounds, nondistended, nontender, soft without guarding or rebound, no organomegaly Skin:few thin bruises on forearms and hands; dry and warm Ext: no edema; no cyanosis; 2+ radial and pedalis pulses Lymph/Heme: no cervical, axillary adenopathy Psych: appropriate mood and judgment, calm Lab/Radiology/Other Diagnostic Tests: Recent Labs 11/26/18 1124 11/27/18 0606 NA 134* 136* K 4.5 4.1 CL 103 107 CO2 21 22 GAP 10 7 BUN 20 17 CR 1.34* 1.30* GLU 118* 116* CA 9.6 8.7 ALBUMIN 4.2 3.6 MG -- 2.0 PO4 -- 2.9 Recent Labs 11/26/18 1124 11/27/18 0606 WBC 2.9* 2.0* HGB 11.2* 10.1* HCT 31.4* 27.9* PLTCT 48* 40* INR -- 1.1 PTT -- 23.6* AST 35 22 ALT 38 25 ALKPHOS 73 59 Estimated Creatinine Clearance: 63 mL/min (A) (based on SCr of 1.3 mg/dL (H)). Vitals: 11/26/18 1055 11/26/18 1457 11/26/18 2018 Weight: 102.1 kg (225 lb) 102.1 kg (225 lb 1.4 oz) 97.3 kg (214 lb 9.6 oz) No results for input(s): PHART, PO2ART in the last 72 hours. Invalid input(s): PC02A No pertinent radiology. * Dejah Vallejo - 11/26/2018 9:30 PM CDT Patient arrived to room # (0281) via wheelchair accompanied by transport. Patien t transferred to the bed with and without assistance. Bedside safety checks comp leted. Initial patient assessment completed, refer to flowsheet for details. Adm ission skin assessment completed by: Jorge Gomez RN and Dorothy Vallejo RN Pressure Injury Present on Hospital Admission (within 24 hours): No 1. Occiput: No 2. Ear: No 3. Scapula: No 4. Spinous Process: No 5. Shoulder: No 6. Elbow: No 7. Iliac Crest: No 8. Sacrum/Coccyx: No 9. Ischial Tuberosity: No 10. Trochanter: No 11. Knee: No 12. Malleolus: No 13. Heel: No 14. Toes: No 15. Assessed for device associated injury No 16. Nursing Nutrition Assessment Completed Yes See Doc Flowsheet for additional wound details. INTERVENTIONS: * Charlene Jose, RT - 11/26/2018 9:18 PM CDT RT Adult Assessment Note NAME:Kelly Yost :1945 AGE: 73 y.o. ADMISSION DATE: 11/26/2018 DAYS ADMITTED: LOS: 0 days RT Treatment Plan: Protocol Plan: Medications Albuterol: MDI PRN Tiotropium: MDI Q Day Additional Comments: Impressions of the patient: Patient is awake,alert, and oriented. Answers questions appropriately. Intervention(s)/outcome(s): Home CPAP set up. Vital Signs: Pulse: 97 RR: 18 PER MINUTE SpO2: 96 % O2 Device: Liter Flow: O2%: 21 % Breath Sounds: Respiratory Effort: Non-Labored documented in this encounter H&P Notes * Sherif Moura DO - 11/26/2018 5:58 PM CDT Admission History and Physical Examination Name: Kelly Yost Admission Date: 11/26/2018 LOS: LOS: 0 days Code status: No Order Assessment Active Problems: Pancytopenia (HCC) CKD (chronic kidney disease) Aortic stenosis, moderate Kelly Yost is a 73 y.o. 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 Normal coags, iron, B12, folate. -11/26 in ED UA negative -11/26 [facility] peripheral smear, reviewed with Dr. 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 Also given history of cis platin use Plan: >F/U blood cultures as pt had fevers at home (afebrile here) >anticipate starting chemotherapy trial and bone marrow biopsy on Thursday >start ppx acyclovir 800mg BID, levaquin 750mg daily, micafungin 50mg IV daily #Risk of DIC/TLS >daily DIC/TLS labs >start allopurinol 300mg daily >transfusion goals: Hgb <7.1, Plt <10, Fibrinogen <150 (irradiated) #Mod-severe , with lightheadedness, MURRELL -11/22 [facility] Cardiology did not recommend TAVR in setting of pancytopenia -11/22 [facility]: no CAD, [id number] -11/26 [facility] ED: BNP and troponin negative -11/26 [facility] ECHO showed EF 60%, no wall motion abnormalities, and moderate Plan: >consult cardiology in AM #New RIOS #New vision change #Migraine w/ aura (stable, controlled) -ferryboat captain regimen triptan 50mg prn and ibuprofen prn -non-focal exam -concern for regular tension headache but consider SERVICE ENGINE REPAIRER involvement of likely sana kemia Plan: >low threshold for MRI, LP if develops focal-findings, worsening RIOS #CKD -Cr ~1.3 -> 1.34 on admit Plan: >500cc NS @100/hr #Steatosis -11/22 [facility] abd US: enlarged liver with steatosis, normal spleen -11/26 CT a/p: steatosis -11/26 AST/ALT wnl #HTN > holding ferryboat captain amlodipine 5mg daily #HLD > continue ferryboat captain simvastatin #COPD > continue ferryboat captain spiriva, mometasone substitute #GERD > continue ferryboat captain omeprazole 20mg daily #Insomnia > continue ferryboat captain restoril 30mg qhs prn #Hx of hemorrhoidectomies (stable) > no GI bleeding #Hx of NSCLC s/p lobe resection and chemo 2012 (stable) -2012 R lobe resection and cisplatin/gemcitibine -11/26 CT chest: R hilar LN, lung nodules <5mm, and old lung resection Plan: >continue q6mo followup with oncology in [place] PPX: FEN: none, replacing PRN, DIET immunosuppressed LDA: PIV DVT:holding chemical ppx with bleeding risk Code Status: Full Disposition: Admit to Hematology Patient seen and discussed with Dr. Martell Jefferson MD PGY1 Prelim Resident Pager: [phone] ATTESTATION I have personally performed a history and physical exam on the patient. I have d iscussed the case with the resident and concur with the resident documentation o f history, physical exam, assessment, and treatment plan unless otherwise noted. Staff name: Sherif Moura DO Pager [phone] Date:11/26/2018 Chief Complaint: 2nd opinion for "MDS", MURRELL, pancytopenia on OSH labs Subjective: Kelly Yost is a 73 y.o. male who presents for MURRELL, abnormal CBCs and looking for 2nd opinion. He reports feeling "normal" in June. Then over the winter/ spring he has noticed progressed fatigue, generalized weakness, MURRELL, lightheaded ness, near-falls, weight loss (17lbs), easy bruising, and recently fevers (over the last week, Tmax 102.6, last fever Thursday). He follows with oncology in [facility] for previously-resected NSCLC. They noted pancytopenia around . The patient recalls some vitamins and bloodwork but no biopsies or other anais p. He felt his symptoms, especially his MURRELL, progressing the last weeks, so he g ot admitted to [facility] 11/22-11/24 for evaluation. He was seen by Cardiolog y (for known history of aortic stenosis) and Hematology (for the pancytopenia). He reports a lot of finger pointing and feeling unsatisfied with their evaluatio n and lack of a plan. He underwent LHC which showed no CAD but actually more sev ere than he was previously told. TAVR was taken off the table due to his panc ytopenia/thrombocytopenia. He reports Hematology did blood work and was concerne d for "MDS" and reportedly had no treatment to offer. They recommended him to dion murrell and followup in some months. He reports he thought he was "supposed to g o home and.. Get worse.. Maybe ". His family brought him here for a second op inion. In the ED, his vitals are stable. Labs do show pancytopenia, more or less consis tent in quantity to the prior lab trends at [facility]/[place]. He has stable CKD to C r 1.34/GFR 53. ECHO has moderate . BNP and trop negative. CT with steatosis, R hilar LN, and small lung nodules. ROS: A comprehensive 14-point review of systems was negative except for HPI and for: -constipation -productive cough -migraines w/ aura (long history, not current issue) -blurred vision, specifically peripheral -new mild frontal headache Past Medical History: Past Medical History: Diagnosis Date Cancer (HCC) COPD (chronic obstructive pulmonary disease) (HCC) Hypertension Past Surgical History: Past Surgical History: Procedure Laterality Date HX HEART CATHETERIZATION LUNG SURGERY Social History: Social History Tobacco Use Smoking status: Former Smoker Packs/day: 2.00 Years: 40.00 Pack years: 80.00 Last attempt to quit: 11/26/2012 Years since quittin.0 Smokeless tobacco: Never Used Substance Use Topics Alcohol use: Yes Alcohol/week: 0.6 - 1.2 oz Types: 1 - 2 Shots of liquor per week Drug use: Never Family History: Family History Problem Relation Age of Onset Cancer Neg Hx Heart Attack Neg Hx Allergies: Bactrim [sulfamethoxazole-trimethoprim] Medications: (Not in a hospital admission) Vitals: Vital Signs: Last Filed In 24 Hours Vital Signs: 24 Hour Range BP: 117/89 (11/26 1630) Temp: 36.2 C (97.1 F) (11/26 1055) Pulse: 81 (11/26 1630) Respirations: 15 PER MINUTE (11/26 1630) SpO2: 98 % (11/26 1630) O2 Delivery: None (Room Air) (11/26 1347) SpO2 Pulse: 81 (11/26 1630) Height: 167.6 cm (66") (11/26 1457) BP: (91-129)/(73-96) Temp: [36.2 C (97.1 F)] Pulse: [81-94] Respirations: [9 PER MINUTE-24 PER MINUTE] SpO2: [93 %-100 %] O2 Delivery: None (Room Air) Intensity Pain Scale (Self Report): 7 (11/26/18 1056) Vitals: 11/26/18 1055 11/26/18 1457 Weight: 102.1 kg (225 lb) 102.1 kg (225 lb 1.4 oz) Physical Exam: Gen: older overweight adult male in NAD Neuro: alert, oriented; normal speech; moving all limbs spontaneously; no focal deficits; 5/5 strength bilaterally Eyes:eyes open without discharge; EOMI; PERRLA HENT: neck supple, trachea midline; no adenopathy; no thyroid nodules; moist muc ous membranes; no oropharyngeal lesions CV: RR, S1, S2, no m/r/g, no JVD, no carotid bruits Pulmonary: breathing w/o accessory muscles, CTAB, no crackles/wheezes/rhonchi Abd:+bowel sounds, nondistended, nontender, soft without guarding or rebound, no organomegaly Skin:few thin bruises on forearms and hands; dry and warm Ext: no edema; no cyanosis; 2+ radial and pedalis pulses Lymph/Heme: no cervical, axillary adenopathy Psych: appropriate mood and judgment, calm Lab/Radiology/Other Diagnostic Tests: Recent Labs 11/26/18 1124 NA 134* K 4.5 CL 103 CO2 21 GAP 10 BUN 20 CR 1.34* GLU 118* CA 9.6 ALBUMIN 4.2 Recent Labs 11/26/18 1124 WBC 2.9* HGB 11.2* HCT 31.4* PLTCT 48* AST 35 ALT 38 ALKPHOS 73 Estimated Creatinine Clearance: 56.6 mL/min (A) (based on SCr of 1.34 mg/dL (H)) . Vitals: 11/26/18 1055 11/26/18 1457 Weight: 102.1 kg (225 lb) 102.1 kg (225 lb 1.4 oz) No results for input(s): PHART, PO2ART in the last 72 hours. Invalid input(s): PC02A Pertinent radiology reviewed. CHEST C/A/P 11/26 IMPRESSION CHEST: 1. Prior right lower lobectomy. [...] with diffuse steatosis. 3. Distal colonic diverticulosis. ECHO 11/26 Left Ventricle: Normal size and mass. Concentric [...] Estimated Peak Systolic PA Pressure 33 mmHg documented in this encounter Procedure Notes * Daisy Diaz APRN - 11/29/2018 11:33 AM CDT Procedure(s): BONE MARROW ASP; BONE MARROW BIOPSY Pre-Procedure Diagnose(s): Acute myeloid leukemia not having achieved remission (HCC) Bone Marrow Procedure Note Procedure Details: Consent was obtained from patient, signed copy placed in chart. Risks of the pro cedure were explained including infection, pain, nerve damage and bleeding. Pt w as then pre-medicated with 75 mcg IV fentanyl. Time out was done prior to the procedure. The patient was positioned in the left lateral position. The right iliac crest was prepped and draped in sterile fashion with chlorhexidine and sterile drapes. 20 ml of 1% Lidocaine was used to anesthetize the skin and bone cortex. An asp irate needle was then inserted into the marrow and fluid obtained however less t serrano ideal and slow to flow therefore clotted quickly. The needle was removed an d pressure applied. Next the bone marrow biopsy needle was inserted, a core bio psy was obtained and the needle removed. Pressure was held until hemostasis. Ba ndaide was applied. Patient was placed supine for 15 minutes and bed lowered to lowest setting. Samples were sent for bone marrow biopsy and aspirate, flow cytometry, NGS, iron studies, cytogenetics, FISH, BeatAML study and Bioresitory (if enough sample). Complications: None. Patient tolerated procedure well. Daisy Diaz APRN [phone] documented in this encounter Consult Notes * Zeb Benson MBBS - 11/27/2018 1:53 PM CDT Associated Order(s): CONSULT CARDIOLOGY PHYSICIAN CARDIOLOGY CONSULT NOTE Reason for Consult: Moderate-severe History of Present Illness Kelly Yost is a 73 y.o. male with PMH sig for CKD, moderate , NSCLC s/p re section, COPD, who was admitted 11/26/2018 for dyspnea on exertion and pancytopen ia to hemonc service currently being treated for AML as a working diagnosis. Car diology is consulted for moderate-severe . Pt reports having mild shortness of breath which started around Feb associated with double vision and dizziness. He was doing fairly well until then. He underwent stress test which did not reveal any ischemia. ECHO revealed moderate . He was seen by his configuration consultant in Oct who recommended further testing with LHC/RHC to evaluate shortness of breath. Pt underwent LHC/RHC which did not reveal any CAD. It did show moderate-severe . At that time he was also noted to have pancytopenia. He was evaluated by hemonc at [place] who felt he had MDS. He was admitted at [place] where he was apparently told he had no options left for which he wanted to come to for second opin ion. Pt reports he did have mild shortness of breath which started in Feb. He had non specific dizziness which is not related to any exertion. He did not report any exertional CP. He also denied any syncope. He reports that his shortness of celina th became acutely worse in the last 2 weeks which correlated with his worsening pancytopenia. His agrees with him regarding acute worsening in the last 2 w eeks. Pt apparently also easy bruisability and fevers in these two weeks. On presentation, patient is currently being considered to have AML and is going for bone marrow bx on Thursday and has plans for chemotherapy soon. ECG: sinus tachycardia. Telemetry: not on telemetry Echocardiogram: 11/26/18 Left Ventricle Normal size and mass. Concentric remodeling. Normal ejection frac tion. EF 60%. No regional wall motion abnormalities seen. Unable to assess left ventricular diastolic function. Normal left atrial pressure. Right Ventricle Normal size and ejection fraction. TAPSE of 2cm. RV S' of 13 cm/ s. Left Atrium Normal size. Right Atrium Normal size. IVC/SVC Normal central venous pressure (0-5 mm Hg). Mitral Valve Normal valve structure. No stenosis. Trace regurgitation. Tricuspid Valve Trace regurgitation. Aortic Valve Aortic valve is not well visualized. Appears to be calcified. Veloc ities are suggestive of at least moderate aortic stenosis. DI of 0.32. Peak velo city of 3.2 m/s. Calculated area of 1.2 cm2 (AVAi of 0.56 cm2/m2). No regurgitat ion. Pulmonary The pulmonic valve was not seen well but no Doppler evidence of stenos is. No regurgitation. Aorta The aorta was not well seen. Pericardium Pericardium is normal. Most recent stress test performed None available Most recent left heart catheterization performed 11/11/2018 CONCLUSION: 1.No angiographic evidence of coronary disease. 2.Right [...] is not having any recurrent cancer issues. Telemetry findings Assessment & Recs Kelly Yost is a 73 y.o. patient with the following problems: Active Problems: Pancytopenia (HCC) CKD (chronic kidney disease) Aortic stenosis, moderate # Moderate-severe - His symptoms are out of proportion to the degree of . A significant amount o f his symptoms are related to ongoing hematologic disorder. - Recent LHC/RHC as above Estimated Peak Systolic PA Pressure 33 mmHg Aortic valve area 1.22 cm2 Aortic valve mean gradient 27 mmHg Aortic valve peak gradient 40 mmHg Aortic valve peak velocity 3.2 m/s Aortic valve velocity ratio 0.26 # Pancytopenia # ?AML # COPD # Elevated fibrinogen # Migraine # CKD3 Recommendations - Given the current scenario of AML w pancytopenia and without clear evidence of critical , patient is not a candidate for TAVR at this point as we would not be able to use any anticoagulation/ antiplatelets post TAVR in this setting. Als o since the AML treatment is likely time sensitive, recommend to go ahead with A ML management as per primary team - Avoid any hypotensive agents as he fixed cardiac output due to aortic stenosis . - May switch simvastatin to atorvastatin. Thank you for allowing us to participate in the care of this patient. Discussed with Dr. Samaniego who agrees with plan above. After 5PM please call Cardiology bennett w automation controls expert. Thursday - Thursday 8AM-5PM please call Cardiology consult pager TONY Caro CV Fellow Pager: [phone] Home Medications Medications Prior to Admission Medication Sig albuterol (PROAIR HFA, VENTOLIN HFA, OR PROVENTIL HFA) 90 mcg/actuation inha ler Inhale 2 puffs by mouth into the lungs every 6 hours as needed for Wheezing or Shortness of Breath. Shake well before use. amLODIPine (NORVASC) 5 mg tablet Take 5 mg by mouth daily. folic acid (FOLVITE) 1 mg tablet Take [...] and inhale into lungs as directed daily. Current Medications Scheduled Meds: acyclovir (ZOVIRAX) tablet 800 mg 800 mg Oral BID allopurinol (ZYLOPRIM) tablet 300 mg 300 mg Oral QDAY budesonide/formoterol (SYMBICORT HFA) 160/4.5 mcg inhalation 2 puff 2 puff Inhal ation BID levoFLOXacin (LEVAQUIN) tablet 750 mg 750 mg Oral Q24H* micafungin (MYCAMINE) 50 mg in sodium chloride 0.9% (NS) 100 mL IVPB (MB+) 50 mg Intravenous QDAY pantoprazole DR (PROTONIX) tablet 20 mg 20 mg Oral BID simvastatin (ZOCOR) tablet 20 mg 20 mg Oral QHS tiotropium (SPIRIVA) capsule for inhaler 1 capsule 1 capsule Inhalation QDAY Continuous Infusions: PRN and Respiratory Meds:albuterol PRN, alteplase PRN (Tool Design Drafter from Rx), ondanse shayna Q6H PRN OR ondansetron (ZOFRAN) IV Q6H PRN, senna/docusate QDAY PRN, so dium chloride 0.9 % TKO infusion PRN, sodium chloride 0.9% irrigation bottle PRN , temazepam QHS PRN Allergies Allergies Allergen Reactions Bactrim [Sulfamethoxazole-Trimethoprim] BLISTERS Past Medical History Past Medical History: Diagnosis Date Cancer (HCC) COPD (chronic obstructive pulmonary disease) (HCC) Hypertension Past Surgical History Past Surgical History: Procedure Laterality Date HX HEART CATHETERIZATION LUNG SURGERY Social History Social History Socioeconomic History Marital status: Spouse name: Not on file Number of children: Not on file Years of education: Not on file Highest education level: Not on file Occupational History Not on file Tobacco Use Smoking status: Former Smoker Packs/day: 2.00 Years: 40.00 Pack years: 80.00 Last attempt to quit: 11/26/2012 Years since quittin.0 Smokeless tobacco: Never Used Substance and Sexual Activity Alcohol use: Yes Alcohol/week: 0.6 - 1.2 oz Types: 1 - 2 Shots of liquor per week Drug use: Never Sexual activity: Not on file Other Topics Concern Not on file Social History Narrative Not on file Family History Family History Problem Relation Age of Onset Cancer Neg Hx Heart Attack Neg Hx Review of Systems A comprehensive review of systems was negative. Vital Signs: Most Recent Vital Signs: 24 Ho ur Range BP: 106/61 (11/27 110) Temp: 36.8 C (98.2 F) (11/27 110) Pulse: 88 (11/27 110) Respirations: 18 PER MINUTE (11/27 110) SpO2: 97 % (11/27 110) O2 Delivery: None (Room Air) (11/27 1106) SpO2 Pulse: 93 (11/26 1830) Height: 182.9 cm (6') (11/26 2017) BP: (99-141)/(59-97) Temp: [36.6 C (97.8 F)-36.8 C (98.2 F)] Pulse: [79-105] Respirations: [9 PER MINUTE-19 PER MINUTE] SpO2: [94 %-100 %] O2 Delivery: None (Room Air) Vitals: 11/26/18 1055 11/26/18 1457 11/26/18 2018 Weight: 102.1 kg (225 lb) 102.1 kg (225 lb 1.4 oz) 97.3 kg (214 lb 9.6 oz) Intake/Output Summary (Last 24 hours) at 11/27/2018 1354 Last data filed at 11/27/2018 1300 Gross per 24 hour Intake 1760 ml Output 700 ml Net 1060 ml Physical Exam General: Not in acute distress. Well developed and nourished Head: NC, AT. Eyes: EOMI, PERRLA Neck: no JVD, no Carotid bruit, No thyromegaly. Trachea in midline CV: Regular rate and rhythm. Normal S1 and S2. Very faint systolic murmur at the LUSB, no gallops or rubs Lungs: Bilateral air entry present. Normal vesicular breath sounds bilaterally. No crackles, rales, rhonchi, wheezing. Abd: Soft, non distended, non tender. Normal BS. Skin: Warm and dry Ext: No edema, cyanosis or clubbing Neuro: AAOx3. No focal neuro deficits grossly Psych: Appropriate mood and affect Lab/Radiology/Other Diagnostic Tests: 24-hour labs: Results for orders placed or performed during the hospital encounter of 11/26/18 (from the past 24 hour(s)) CULTURE-BLOOD W/SENSITIVITY Collection Time: 11/26/18 9:43 PM Result Value Ref Range Battery Name BLOOD CULTURE Specimen Description BLOOD LEFT HAND Special Requests NONE Culture NO GROWTH 1 DAY Report Status FIBRINOGEN Collection Time: 11/26/18 9:49 PM Result Value Ref Range Fibrinogen 449 (H) 200 - 400 MG/DL CULTURE-BLOOD W/SENSITIVITY Collection Time: 11/26/18 9:55 PM Result Value Ref Range Battery Name BLOOD CULTURE Specimen Description BLOOD RIGHT HAND Special Requests NONE Culture NO GROWTH 1 DAY Report Status CBC AND DIFF CELLULAR THERAPEUTICS Collection Time: 11/27/18 6:06 AM Result Value Ref Range White Blood Cells 2.0 (L) 4.5 - 11.0 K/UL RBC 2.60 (L) 4.4 - 5.5 M/UL Hemoglobin 10.1 (L) 13.5 - 16.5 GM/DL Hematocrit 27.9 (L) 40 - 50 % MCV 107.3 (H) 80 - 100 FL MCH 39.0 (H) 26 - 34 PG MCHC 36.3 (H) 32.0 - 36.0 G/DL RDW 17.1 (H) 11 - 15 % Platelet Count 40 (L) 150 - 400 K/UL MPV 8.4 7 - 11 FL Segmented Neutrophils 37 (L) 41 - 77 % Lymphocytes 40 24 - 44 % Monocytes 11 4 - 12 % Eosinophil 5 0 - 5 % Basophil 1 0 - 2 % Metamyelocyte 1 % Blast 5 % ANISO PRESENT POLY PRESENT MACRO PRESENT Platelet Estimate MKD DEC Absolute Neutrophil Count Manual 0.74 (L) 1.8 - 7.0 K/UL PROTIME INR (PT) Collection Time: 11/27/18 6:06 AM Result Value Ref Range INR 1.1 0.8 - 1.2 PTT (APTT) Collection Time: 11/27/18 6:06 AM Result Value Ref Range APTT 23.6 (L) 24.0 - 36.5 SEC COMPREHENSIVE METABOLIC PANEL CELLULAR THERAPEUTICS Collection Time: 11/27/18 6:06 AM Result Value Ref Range Sodium 136 (L) 137 - 147 MMOL/L Potassium 4.1 3.5 - 5.1 MMOL/L Chloride 107 98 - 110 MMOL/L Glucose 116 (H) 70 - 100 MG/DL Blood Urea Nitrogen 17 7 - 25 MG/DL Creatinine 1.30 (H) 0.4 - 1.24 MG/DL Calcium 8.7 8.5 - 10.6 MG/DL Total Protein 6.2 6.0 - 8.0 G/DL Total Bilirubin 1.0 0.3 - 1.2 MG/DL Albumin 3.6 3.5 - 5.0 G/DL Alk Phosphatase 59 25 - 110 U/L AST (SGOT) 22 7 - 40 U/L CO2 22 21 - 30 MMOL/L ALT (SGPT) 25 7 - 56 U/L Anion Gap 7 3 - 12 eGFR Non 54 (L) >60 mL/min eGFR >60 >60 mL/min MAGNESIUM CELLULAR THERAPEUTICS Collection Time: 11/27/18 6:06 AM Result Value Ref Range Magnesium 2.0 1.6 - 2.6 mg/dL PHOSPHORUS CELLULAR THERAPEUTICS Collection Time: 11/27/18 6:06 AM Result Value Ref Range Phosphorus 2.9 2.0 - 4.5 MG/DL FIBRINOGEN Collection Time: 11/27/18 6:06 AM Result Value Ref Range Fibrinogen 450 (H) 200 - 400 MG/DL URIC ACID Collection Time: 11/27/18 6:06 AM Result Value Ref Range Uric Acid 6.1 4.0 - 8.0 MG/DL LDH-LACTATE DEHYDROGENASE Collection Time: 11/27/18 6:06 AM Result Value Ref Range Lactate Dehydrogenase 193 100 - 210 U/L Associated attestation - Stanley Samaniego MD - 11/27/2018 4:08 PM CDT Staff: I have personally interviewed and examined the patient, have reviewed the docume ntation, and agree with the assessment and plan of the CV Fellow. Mr. Yost is a very pleasant 73-year-old male with a history of chronic renal insufficiency, aortic stenosis, COPDquit smoking about 6 years ago, non-small ce ll lung cancer status post right lobe resection and chemotherapy in 2012. He wa s complaining of increased shortness of breath since September. His stress test demonstrated no significant ischemia. He was seen by configuration consultant and underwent cardiac catheterization. There was no significant obstructive coronary artery disease noted however he was diagnosed with moderate to severe aortic stenosis a s catheter could not be passed. He also had an echocardiogram demonstrating mod erate to severe aortic stenosis on the outside echo. Patient underwent an echoc ardiogram at [facility] yesterday demonstrating ejection fraction of 60%. Aortic valve was not well visualized however it demonstrated at least moderate stenosis with a peak velocity of 3.2, aortic valve area 1.2 cm square and a dim ensionless index of 0.32. Cardiology was consulted for further evaluation and m anagement of aortic stenosis. Meanwhile patient had pancytopenia and has been c onsidered for acute myelogenous leukemia versus myelodysplastic syndrome. 1. Aortic stenosis: Based on the echocardiogram images and gradients, aortic stenosis does not appea r to be critical. It is probably moderate to severe aortic stenosis. I calcula christopher aortic valve area of about 1.0 cm square which is moderate to severe. Peak velocity is about 3.2 m/s and mean gradient is 27 mmHg which is in the moderate range. Overall, aortic stenosis is not critical. I think patient should procee d with a workup for pancytopenia first and once that is resolved, he is to follo w with cardiology and have aortic valve addressed at that time. His symptoms of shortness of breath may very well be due to anemia and underlying hematological disorder. He denies any chest pain with exertion or syncope. His platelet count is low at 40,000, anyhow if he requires any aortic valve repl acement via transcatheter approach, he will need to be on Plavix for about 3 mon ths. With a low platelet count which may partly be dysfunctional, he will be at increased risk of bleeding. Would not recommend transcatheter aortic valve replacement at this time still rios s hematological disorder is being addressed. Will sign off. Please consult as needed. documented in this encounter ED Notes * Christie Sherwood - 11/26/2018 12:17 PM CDT 73 y.o. Male presents to ED rm 25 by POV w/ c/o of chest pain, SOA and dizziness . Pt reports chest pain is a 6/10, describes as sharp, intermittent, gets worse w/ activity, and radiates to upper abdomen. Patient denies having nitro or ASA o r any other interventions to help w/ chest pain. Pt reports SOA is constant but increases w/ activity even walking small distances. Pt reports dizziness occurs w/ position changes. Spont NL breathing, a&ox4, skin dry, intact, and pale. Patient was being seen at [facility] in [place] and was told he had aortic valve stenosis but did not receive treatment. Patient has previous medical history of lung cancer and had a right lower lobectomy and chemotherapy for treatment. Patient reports his WBC and plt counts are low. Patient in cart in lowest locked position, on monitors call light w/n reach. Belongings: shirt, pants, glasses, cane, shoes, socks, underwear, hat, jacket * Tawana Murray RN - 11/26/2018 11:56 AM CDT Pt used urinal at bedside to provide urine sample. * Hever Guillen MD - 11/26/2018 11:34 AM CDT Kelly Yost is a 73 y.o. male. Chief Complaint: Chief Complaint Patient presents with Chest Pain CP/SOA x few weeks, worse today. Hx AV stinosis History of Present Illness: Kelly Yost is a 73 y.o. male, with a personal history of HTN, HLD, lung canc er s/p R lower lobectomy (s/p 12 weeks chemo, last seen Oncology 06/2018), chemo induced neuropathy, RIOS, GERD, COPD, and possible CKD who presents to the emerge ncy department for chest pain. Pt c/o few months of 6/10 L sided, dull/achy subs ternal exertional chest pain with associated SOB, nausea, diaphoresis and lighth eadedness/dizziness that has become worse in the last few weeks. He says that d ull pain is intermittently punctuated by sharp chest pain, also that he intermit tently has radiating upper abd pain associated with eating. notes that he has had recent intermittent fever with Tmax of 102.6. Pt denies any other pain or complaints including abd distension, new leg swelling or calf pain. Pt notes that that 2 weeks ago he was evaluated at [facility] in [place] and underwent US and cardiac cath showing moderate aortic valve stenosis. He also states that he was noted to have low WBC and platelets at that time. Pt from [place] in [facility]. 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 History provided by: Patient densitometrist used: No Review of Systems: Review of Systems Constitutional: Positive for diaphoresis and fever. Negative for chills. HENT: Negative for congestion, rhinorrhea and sore throat. Eyes: Negative for redness and visual disturbance. Respiratory: Positive for shortness of breath. Negative for cough and wheezing. Cardiovascular: Positive for chest pain. Negative for palpitations. Gastrointestinal: Positive for abdominal pain. Negative for constipation, diarrh ea, nausea and vomiting. Genitourinary: Negative for decreased urine volume, difficulty urinating, dysuri a and flank pain. Musculoskeletal: Negative for arthralgias and myalgias. Skin: Negative for color change. Allergic/Immunologic: Negative for immunocompromised state. Neurological: Positive for dizziness and light-headedness. Negative for weakness , numbness and headaches. Hematological: Does not bruise/bleed easily. All other systems reviewed and are negative. Allergies: Bactrim [sulfamethoxazole-trimethoprim] Past Medical History: History reviewed. No pertinent past medical history. Past Surgical History: History reviewed. No pertinent surgical history. Pertinent medical/surgical history reviewed History reviewed. No pertinent past medical history. History reviewed. No pertinent surgical history. Social History: Social History Tobacco Use Smoking status: Former Smoker Last attempt to quit: 11/26/2012 Years since quittin.0 Smokeless tobacco: Never Used Substance Use Topics Alcohol use: Yes Alcohol/week: 6.0 oz Types: 10 Cans of beer per week Drug use: Never Social History Substance and Sexual Activity Drug Use Never Family History: No family history on file. Vitals: ED Vitals Date and Time T BP P RR SPO2P SPO2 User 11/26/18 1600 -- 129/96 83 12 PER MINUTE 85 96 % 11/26/18 1530 -- 99/84 82 11 PER MINUTE 82 99 % 11/26/18 1347 -- 100/77 92 20 PER MINUTE 93 95 % 11/26/18 1330 -- 91/75 89 15 PER MINUTE 89 93 % 11/26/18 1300 -- 103/73 87 11 PER MINUTE 87 97 % 11/26/18 1230 -- 109/82 94 11 PER MINUTE 95 96 % 11/26/18 1201 -- -- 89 9 PER MINUTE 90 99 % 11/26/18 1200 -- 115/78 91 10 PER MINUTE 89 -- 11/26/18 1148 -- -- 91 9 PER MINUTE 93 100 % 11/26/18 1147 -- 114/92 90 10 PER MINUTE 91 -- 11/26/18 1130 -- 108/81 92 15 PER MINUTE 92 99 % 11/26/18 1055 36.2 C (97.1 F) 110/80 -- 24 PER MINUTE 110 100 % JR Physical Exam: Physical Exam Constitutional: He is oriented to person, place, and time. He appears well-devel oped and well-nourished. He is cooperative. No distress. HENT: Head: Normocephalic and atraumatic. Right Ear: Hearing normal. Left Ear: Hearing normal. Nose: Nose normal. Mouth/Throat: Oropharynx is clear and moist and mucous membranes are normal. Eyes: Pupils are equal, round, and reactive to light. EOM are normal. Neck: Normal range of motion. Neck supple. Cardiovascular: Normal rate, regular rhythm, S1 normal, S2 normal, intact distal pulses and normal pulses. Exam reveals no decreased pulses. Murmur (Systolic murmur) heard. Pulmonary/Chest: Effort normal and breath sounds normal. He has no decreased ade ath sounds. He has no wheezes. He has no rales. Abdominal: Normal appearance and bowel sounds are normal. He exhibits distension (mild). There is no tenderness. Musculoskeletal: Normal range of motion. Neurological: He is alert and oriented to person, place, and time. He has normal strength. He is not disoriented. No cranial nerve deficit or sensory deficit. Skin: Skin is warm, dry and intact. No rash noted. He is not diaphoretic. No cya nosis. No pallor. Nails show no clubbing. Nursing note and vitals reviewed. Laboratory Results: Labs Reviewed CBC AND DIFF - Abnormal Result Value Ref Range Status White Blood Cells 2.9 (*) 4.5 - 11.0 K/UL Final RBC 3.00 (*) 4.4 - 5.5 M/UL Final Hemoglobin 11.2 (*) 13.5 - 16.5 GM/DL Final Hematocrit 31.4 (*) 40 - 50 % Final MCV 104.6 (*) 80 - 100 FL Final MCH 37.1 (*) 26 - 34 PG Final MCHC 35.5 32.0 - 36.0 G/DL Final RDW 16.8 (*) 11 - 15 % Final Platelet Count 48 (*) 150 - 400 K/UL Final MPV 8.6 7 - 11 FL Final Nucleated RBCs 1 K/UL Final Segmented Neutrophils 23 (*) 41 - 77 % Final Bands 10 0 - 10 % Final Lymphocytes 49 (*) 24 - 44 % Final Monocytes 4 4 - 12 % Final Eosinophil 3 0 - 5 % Final Metamyelocyte 1 % Final Other Cells 10 % Final Normal RBC Morph NORMAL Final Platelet Estimate MKD DEC Final Absolute Neutrophil Count Manual 0.96 (*) 1.8 - 7.0 K/UL Final COMPREHENSIVE METABOLIC PANEL - Abnormal Sodium 134 (*) 137 - 147 MMOL/L Final Potassium 4.5 3.5 - 5.1 MMOL/L Final Chloride 103 98 - 110 MMOL/L Final Glucose 118 (*) 70 - 100 MG/DL Final Blood Urea Nitrogen 20 7 - 25 MG/DL Final Creatinine 1.34 (*) 0.4 - 1.24 MG/DL Final Calcium 9.6 8.5 - 10.6 MG/DL Final Total Protein 7.7 6.0 - 8.0 G/DL Final Total Bilirubin 1.0 0.3 - 1.2 MG/DL Final Albumin 4.2 3.5 - 5.0 G/DL Final Alk Phosphatase 73 25 - 110 U/L Final AST (SGOT) 35 7 - 40 U/L Final CO2 21 21 - 30 MMOL/L Final ALT (SGPT) 38 7 - 56 U/L Final Anion Gap 10 3 - 12 Final eGFR Non 53 (*) >60 mL/min Final eGFR >60 >60 mL/min Final LIPASE - Abnormal Lipase 10 (*) 11 - 82 U/L Final POC TROPONIN Xeoxxfej-K-UOC 0.02 0.00 - 0.05 NG/ML Final URINALYSIS DIPSTICK Color,UA YELLOW Final Turbidity,UA CLEAR CLEAR-CLEAR Final Specific [place]-Urine 1.014 1.003 - 1.035 Final pH,UA 6.0 5.0 - 8.0 Final Protein,UA NEG NEG-NEG Final Glucose,UA NEG NEG-NEG Final Ketones,UA NEG NEG-NEG Final Bilirubin,UA NEG NEG-NEG Final Blood,UA NEG NEG-NEG Final Urobilinogen,UA NORMAL NORM-NORMAL Final Nitrite,UA NEG NEG-NEG Final Leukocytes,UA NEG NEG-NEG Final Urine Ascorbic Acid, UA NEG NEG-NEG Final URINALYSIS, MICROSCOPIC WBCs,UA 0-2 0 - 2 /HPF Final RBCs,UA 0-2 0 - 3 /HPF Final MucousUA TRACE Final BNP POC ER BNP POC <15.0 0 - 100 PG/ML Final PERIPHERAL SMEAR POC TROPONIN POC BNP BLOOD BANK SAMPLE HOLD BB Sample hold IN LAB Final Radiology Interpretation: 2-D + DOPPLER ECHOCARDIOGRAM Final Result CT CHEST W CONTRAST Preliminary Result CHEST: 1. Prior right lower lobectomy. Mild [...] Randy Pond M.D. on 11/26/2018 3:[address] ABD/PELV W CONTRAST Preliminary Result CHEST: 1. Prior right lower lobectomy. Mild [...] Randy Pond M.D. on 11/26/2018 3:50 PM POC ED US CARDIAC LIMITED (Results Pending) EKG: Normal sinus rhythm (108), KS 164, QRS 80, QTc 429, No STEMI ED Course: Patient was seen and evaluated by the resident and attending due to chest pain a nd abnormal labs found that his home hospital. IV access was obtained and he wa s placed on monitor. The patient was afebrile and saturating well on room air. His exam was nonspecific for his presentation. Given his reported history there was a large concern for a malignancy recurrence , ACS, CHF, or a new hematologic disorder. His ECG was without ST changes and h is troponin was negative. His labs returned consistent with pancytopenia and ev idence of blasts on the differential. A peripheral smear was sent for the patie nt. His CTs returned as above and were unremarkable for his presentation with t he exception of multiple pulmonary nodules and hilar lymphadenopathy. Discussed these findings with the patient and given the concerns for malignancy found on his labs recommended admission for further evaluation and management. The patient agreed. Consulted hematology and he was admitted for further manage ment. MDM Reviewed: previous chart, nursing note and vitals Interpretation: labs, ECG, CT scan, x-ray and ultrasound Consults: admitting MD Facility Administered Meds: Medications perflutren lipid microspheres (DEFINITY) injection 1-20 Diluted mL (2 Diluted mL Intravenous Given 11/26/18 1514) Clinical Impression: Clinical Impression Pancytopenia (HCC) Aortic valve stenosis, etiology of cardiac valve disease unspecified Chest pain, unspecified type Disposition/Follow up ED Disposition ED Disposition Admit No follow-up provider specified. Medications: New Prescriptions No medications on file Procedure Notes: Procedures Attestation / Supervision: Alexis Watkins, dandy scribing for and in the presence of Joce Elizondo MD. [place] McGhie Attestation / Supervision Note concerning Kelly Yost: I, Joce Elizondo MD, personally performed the services described in this documentation as scribed in my presence and it is both accurate and complete. Joce Elizondo MD Attestation / Supervision Note concerning Kelly Yost: I personally performed the E/M including history, physical exam, and MDM. and I personally performed t he maurice portions of the E/M visit, discussed case with resident and concur with r esident documentation of history, physical exam, assessment, and treatment plan unless otherwise noted. Hever Guillen MD documented in this encounter Miscellaneous Notes * Care Plan - Reymundo Gonzalez - 12/01/2018 12:29 PM CDT Problem: Discharge Planning Goal: Participation in plan of care Outcome: Goal Achieved Date Met: 12/01/18 Patient actively participates in plan of care. Daily care explained to pt. Freddy nt verbalizes understanding. Patient asked questions appropriately. Goal: Knowledge regarding plan of care Outcome: Goal Achieved Date Met: 12/01/18 Reviewed d/c paperwork with pt. Pt verbalizes understanding of d/c plan. Goal: Prepared for discharge Outcome: Goal Achieved Date Met: 12/01/18 Prepping the patient for discharge by following the plan of care. Patient is com pliant with the plan of care. Patient is compliant with medications and therapy sessions. Problem: Pain Goal: Management of pain Outcome: Goal Achieved Date Met: 12/01/18 Pain assessed routinely. Given pain medication as needed. Goal: Knowledge of pain management Outcome: Goal Achieved Date Met: 12/01/18 Patient verbalizes when pain occurs. Patient is aware of the options for pain ma nagement. Patient has reported no pain. * Med Student H&P - Chencho Lehman - 11/30/2018 3:31 PM CDT General Progress Note Name: Kelly Yost Today's Date: 11/30/2018 Admission Date: 11/26/2018 LOS: 4 days Assessment/Plan: Active Problems: Pancytopenia (HCC) CKD (chronic kidney disease) Aortic stenosis, moderate Severe malnutrition (HCC) 1. 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 Soliz revealed 'dysplasia & probable myeloblasts - Not consistent with APML - Concerning for a new acute leukemia > BMBx on 11/29 - Flow revealed ~7% atypical myeloblasts - Preliminary cytology appears similarly to flow. Awaiting official read. 2. R Hip Pain - Lidocaine patch for pain. - Tramadol was not helpful for reducing pain - Patient does not care for Tylenol d/t concern for constipation 3. Mod-Sev Aortic Stenosis > Seen by Cardiology - Agreed that Hematologic issue is more pressing - Not a candidate for TAVR til platelets increased. 4. NSCLC s/p resection & cisplatin chemotherapy - q6mo f/u in [place] 5. Stage 3 CKD - Baseline Cr ~1.3 - Stable - Encourage PO intake 6. Migraines w/ aura - MANAGER [employer] sumatriptan and ibuprofen 7. Steatosis - OSH abdominal US revealed liver enlargement with steatosis - CT on 11/26 revealed steatosis - AST, ALT wnl - Continue to follow 8. GERD - Protonix 40 mg 9. HLD - Simvastatin 20 mg 10. COPD - Albuterol, 2 puff, BID & prn - Symbicort, 2 puff, BID - Tiotropium QD 11. 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 male with a PMH of NSCLC s/p resection and cisplatin chemotherapy, CKD stage III, moderate-severe aortic stenosis, & COPD who presented from OSH for concern of neoplastic process after abnormal CBCs. Medications Scheduled Meds: acyclovir (ZOVIRAX) tablet 800 mg 800 mg Oral BID albuterol (PROAIR HFA, VENTOLIN HFA, or PROVENTIL HFA) inhaler 2 puff 2 puff Inh alation BID & PRN allopurinol (ZYLOPRIM) tablet 300 mg 300 mg Oral QDAY budesonide/formoterol (SYMBICORT HFA) 160/4.5 mcg inhalation 2 puff 2 puff Inhal ation BID levoFLOXacin (LEVAQUIN) tablet 750 mg 750 mg Oral Q24H* micafungin (MYCAMINE) 50 mg in sodium chloride 0.9% (NS) 100 mL IVPB (MB+) 50 mg Intravenous QDAY pantoprazole DR (PROTONIX) tablet 40 mg 40 mg Oral QDAY 30 min before breakfast polyethylene glycol 3350 (MIRALAX) packet 17 g 1 packet Oral BID simvastatin (ZOCOR) tablet 20 mg 20 mg Oral QHS tiotropium (SPIRIVA) capsule for inhaler 1 capsule 1 capsule Inhalation QDAY Continuous Infusions: PRN and Respiratory Meds:alteplase PRN (Tool Design Drafter from Rx), lidocaine PRN, ondanse shayna Q6H PRN OR ondansetron (ZOFRAN) IV Q6H PRN, senna/docusate QDAY PRN, so dium chloride 0.9 % TKO infusion PRN, sodium chloride 0.9% irrigation bottle PRN , temazepam QHS PRN Review of Systems: Review of Systems Constitutional: Positive for malaise/fatigue. Negative for chills and fever. HENT: Negative for congestion, sinus pain and sore throat. Eyes: Negative for blurred vision. Respiratory: Positive for cough (baseline) and sputum production (white, gelatin -like, sometimes arash). Negative for shortness of breath and wheezing. Cardiovascular: Negative for chest pain, palpitations and leg swelling. Gastrointestinal: Negative for abdominal pain, nausea and vomiting. Genitourinary: Negative for dysuria, frequency and urgency. Musculoskeletal: R hip pain Skin: Negative for rash. Neurological: Positive for dizziness (Some when first standing). Negative for he adaches. Objective: Vital Signs: Last Filed Vital Signs: 24 Leela r Range BP: 99/67 (11/30 1138) Temp: 36.5 C (97.7 F) (11/30 1138) Pulse: 80 (11/30 1138) Respirations: 16 PER MINUTE (11/30 1138) SpO2: 94 % (11/30 1138) O2 Delivery: None (Room Air) (11/30 1138) BP: (95-105)/(58-68) Temp: [36.5 C (97.7 F)-37.2 C (98.9 F)] Pulse: [80-102] Respirations: [16 PER MINUTE-24 PER MINUTE] SpO2: [93 %-100 %] O2 Delivery: None (Room Air) Intensity Pain Scale (Self Report): Asleep (11/30/18 0432) Vitals: 11/26/18 2018 11/28/18 0232 11/30/18 0748 Weight: 97.3 kg (214 lb 9.6 oz) 97.3 kg (214 lb 9.6 oz) 97.6 kg (215 lb 3.2 oz) Intake/Output Summary: (Last 24 hours) Intake/Output Summary (Last 24 hours) at 11/30/2018 1533 Last data filed at 11/30/2018 1139 Gross per 24 hour Intake 1820 ml Output 2075 ml Net -255 ml Physical Exam Physical Exam Constitutional: He is oriented to person, place, and time. He appears well-devel oped and well-nourished. No distress. HENT: Head: Normocephalic. Mouth/Throat: Oropharynx is clear and moist. No oropharyngeal exudate. Cardiovascular: Normal rate, regular rhythm, normal heart sounds and intact dist al pulses. Distant heart sounds Pulmonary/Chest: Effort normal. No respiratory distress. He has no wheezes. Abdominal: Soft. Bowel sounds are normal. He exhibits no distension. There is no tenderness. There is no guarding. Neurological: He is alert and oriented to person, place, and time. Skin: Skin is warm. Capillary refill takes 2 to 3 seconds. He is not diaphoretic . No erythema. Psychiatric: He has a normal mood and affect. His behavior is normal. Nursing note and vitals reviewed. Lab Review 24-hour labs: Results for orders placed or performed during the hospital encounter of 11/26/18 (from the past 24 hour(s)) CMV AB IGG Collection Time: 11/29/18 6:03 PM Result Value Ref Range CMV, IgG NEG BASIC METABOLIC PANEL Collection Time: 11/29/18 11:20 PM Result Value Ref Range Sodium 130 (L) 137 - 147 MMOL/L Potassium 4.0 3.5 - 5.1 MMOL/L Chloride 103 98 - 110 MMOL/L CO2 19 (L) 21 - 30 MMOL/L Anion Gap 8 3 - 12 Glucose 121 (H) 70 - 100 MG/DL Blood Urea Nitrogen 18 7 - 25 MG/DL Creatinine 1.33 (H) 0.4 - 1.24 MG/DL Calcium 8.4 (L) 8.5 - 10.6 MG/DL eGFR Non 53 (L) >60 mL/min eGFR >60 >60 mL/min CBC AND DIFF CELLULAR THERAPEUTICS Collection Time: 11/30/18 5:32 AM Result Value Ref Range White Blood Cells 2.4 (L) 4.5 - 11.0 K/UL RBC 2.39 (L) 4.4 - 5.5 M/UL Hemoglobin 8.7 (L) 13.5 - 16.5 GM/DL Hematocrit 25.7 (L) 40 - 50 % MCV 107.3 (H) 80 - 100 FL MCH 36.4 (H) 26 - 34 PG MCHC 33.9 32.0 - 36.0 G/DL RDW 16.7 (H) 11 - 15 % Platelet Count 32 (L) 150 - 400 K/UL MPV 9.7 7 - 11 FL Segmented Neutrophils 48 41 - 77 % Bands 5 0 - 10 % Lymphocytes 31 24 - 44 % Monocytes 4 4 - 12 % Eosinophil 5 0 - 5 % Blast 7 % ANISO PRESENT MACRO PRESENT Platelet Estimate MKD DEC Absolute Neutrophil Count Manual 1.27 (L) 1.8 - 7.0 K/UL PROTIME INR (PT) Collection Time: 11/30/18 5:32 AM Result Value Ref Range INR 1.3 (H) 0.8 - 1.2 PTT (APTT) Collection Time: 11/30/18 5:32 AM Result Value Ref Range APTT 26.8 24.0 - 36.5 SEC COMPREHENSIVE METABOLIC PANEL CELLULAR THERAPEUTICS Collection Time: 11/30/18 5:32 AM Result Value Ref Range Sodium 131 (L) 137 - 147 MMOL/L Potassium 4.2 3.5 - 5.1 MMOL/L Chloride 104 98 - 110 MMOL/L Glucose 132 (H) 70 - 100 MG/DL Blood Urea Nitrogen 16 7 - 25 MG/DL Creatinine 1.33 (H) 0.4 - 1.24 MG/DL Calcium 8.6 8.5 - 10.6 MG/DL Total Protein 6.0 6.0 - 8.0 G/DL Total Bilirubin 0.7 0.3 - 1.2 MG/DL Albumin 3.4 (L) 3.5 - 5.0 G/DL Alk Phosphatase 62 25 - 110 U/L AST (SGOT) 15 7 - 40 U/L CO2 19 (L) 21 - 30 MMOL/L ALT (SGPT) 18 7 - 56 U/L Anion Gap 8 3 - 12 eGFR Non 53 (L) >60 mL/min eGFR >60 >60 mL/min MAGNESIUM CELLULAR THERAPEUTICS Collection Time: 11/30/18 5:32 AM Result Value Ref Range Magnesium 1.9 1.6 - 2.6 mg/dL PHOSPHORUS CELLULAR THERAPEUTICS Collection Time: 11/30/18 5:32 AM Result Value Ref Range Phosphorus 3.1 2.0 - 4.5 MG/DL FIBRINOGEN Collection Time: 11/30/18 5:32 AM Result Value Ref Range Fibrinogen 502 (H) 200 - 400 MG/DL URIC ACID Collection Time: 11/30/18 5:32 AM Result Value Ref Range Uric Acid 3.4 (L) 4.0 - 8.0 MG/DL LDH-LACTATE DEHYDROGENASE Collection Time: 11/30/18 5:32 AM Result Value Ref Range Lactate Dehydrogenase 188 100 - 210 U/L Radiology and other Diagnostics Review: Pertinent radiology reviewed. Chencho Lehman, MS3 * Case Mgmt DC Plan - Patricia Aguilar - 11/29/2018 3:42 PM CDT Case Management Admission AssessmentNAME:Kelly Yost :1945 AGE: 73 y.o. ADMISSION DATE: 11/26/2018 DAYS ADMITTED: LOS: 3 days Todays Date: 11/29/2018 Source of Information: Patient, Spouse (Viktor), Dtr (Sylvia) Plan Plan: Case Management Assessment, Discharge Planning for Home Anticipated Discharge home with home health when medically stable. Possible [facility]. Pt's will provide transportation home. SW will continue to follow for d/c needs. 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 Pt is from [facility] in [place], [place] and is seeking a second opinion. Met with the pt, his , Viktor, and his dtr, Sylvia, at bedside for assessment and d/c planning. The pt reports he was independent with all care needs until t wo weeks prior to hospital admission. Pt became progressively fatigued and weake issac. 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 The pt has a walker and quad cane. He typically uses the w alker. The pt has no prior h/o HH, SNF, IPR, or LTACH. The pt acknowledges that he may need to remain in the area after hospital d/c. SW provided information about the [facility]. The pt and his are appreciative of the info. Pt's declines a caregiver referral to the [facility] at this time. The pt has support from his , daughter, son, and friends. The pt's is home with e pt and can provide 24/7 care. The pt's son lives 1 hour away from the pt's [facility]. The pt's dtr lives 1 hour from the area. The pt's son and dtr cannot provi de consistent care d/t their distance from the pt's home and their familial comm itments. The pt said his goal is to function at a more independent level so he c an successfully manage his care needs in the home setting. Patient Address/Phone [address] [phone] (home) Emergency Contact Extended Emergency Contact Information Primary Emergency Contact: sylvia schneider Mobile Relation: Daughter Secondary Emergency Contact: viktor yost Mobile Relation: Spouse Healthcare Directive Healthcare Directive: Yes, patient has a healthcare directive Type of Healthcare Directive: Durable power of compliance attorney for healthcare, Living W ill Location of Healthcare Directive: Copy in paper chart Would patient like to fill out a (a new) Healthcare Directive?: N/A Transportation Does the patient need discharge transport arranged?: No Transportation Name, Phone and Availability #1: Viktor Matute Does the patient use Medicaid Transportation?: No Expected Discharge Date Expected Discharge Date: 11/30/18 Expected Discharge Time: 1600 Living Situation Prior to Admission ? Living Arrangements Type of Residence: Home, independent Living Arrangements: Spouse/significant other(Pt lives with Viktor matute.) How many levels in the residence?: 1 Can patient live on one level if needed?: N/A Does residence have entry and/or side stairs?: Yes(2 BARBI.) Assistance needed prior to admit or anticipated on discharge: Yes(Pt had increas ed weakness and fatigue prior to admission. Unclear about pt's current functiona l status. PT and OT to assess.) Who provides assistance or could if needed?: Pt's , Viktor, is home and abl e to provide 24/7 assistance and care. Pt's son and dtr live at least an hour aw ay from the pt's home. Pt and have friend who may be able to assist, but pt does not want to ask friends for help. Are they in good health?: Yes Can support system provide 24/7 care if needed?: Yes ? Level of Function Prior level of function: Independent ? Cognitive Abilities Cognitive Abilities: Alert and Oriented, Engages in problem solving and planning , Participates in decision making Financial Resources ? Coverage Primary Insurance: Medicare Secondary Insurance: Medicare Supplement(GTL: Medicare Plan F) Additional Coverage: RX(Pt has [employer] Rx Part D coverage.) ? Source of Income Source Of Income: Other [facility] income ? Financial Assistance Needed? No Psychosocial Needs ? Mental Health Mental Health History: No ? Substance Use History Substance Use History Screen: No ? Other None Current/Previous Services ? PCP Aidan Caraballo, , ? Pharmacy No Pharmacies Listed ? Durable Medical Equipment Durable Medical Equipment at home: Walker, Quad Cane(Pt usually uses the walker. ) ? Home Health Receiving home health: No ? Hemodialysis or Peritoneal Dialysis Undergoing hemodialysis or peritoneal dialysis: No ? Tube/Enteral Feeds Receive tube/enteral feeds: No ? Infusion Receive infusions: No ? Private Duty Private duty help used: No ? Home and Community Based Services Home and community based services: No ? Shay White Shay White: N/A ? Hospice Hospice: No ? Outpatient Therapy PT: No OT: No STONE SANDBLASTER: No ? Care Home Facility/Usp SNF: No NH: No ? Inpatient Rehab IPR: No ? Long-Term Acute Care Hospital LTACH: No ? Acute Hospital Stay Acute Hospital Stay: No Patricia Aguilar LMSW Pg [phone] * Care Plan - Cindy Berumen RN - 11/29/2018 3:14 PM CDT Problem: Discharge Planning Goal: Participation in plan of care Outcome: Goal Ongoing Pt actively participating in plan of care Goal: Knowledge regarding plan of care Outcome: Goal Ongoing This RN educated pt regarding plan of care. Pt verbalized understanding of educa tion. Problem: Pain Goal: Management of pain Outcome: Goal Ongoing Pain appropriately assessed per protocol Goal: Knowledge of pain management Outcome: Goal Ongoing Pt educated on pain management therapies. Pt verbalized understanding of educati on and appropriate pain assessment will continue per protocol Problem: Respiratory Impairment (Non-Ventilated Patient) Goal: Effective gas exchange Outcome: Goal Ongoing Pt satting >92% on room air Problem: Infection, Risk of Goal: Absence of infection Outcome: Goal Ongoing Monitoring pt for S/S of infection * Research - Page Mayorga MD - 11/28/2018 2:35 PM CDT Study Title: A Master Protocol for Biomarker-Based Treatment of AML (The Beat AM L Trial) HSC: [id number] Consent Version Date: Version [id number] Clinical trial participation and research nature of the trial were discussed wit h subject during this visit. Subject was alert and oriented during consent discu ssion. Subject was informed that clinical trial is voluntary and he may withdraw consent at any time for any reason by notifying study team. Study purpose, proc edures, tests, samples to be obtained, potential side effects, benefits, foresee able risks and duration of study were discussed. HIPAA information, compensation and insurance pre-certification were discussed per consent form. Patient does not want an appointment with the financial counselor. Alternative courses of roberto atment were also discussed per consent. Subject verbalized understanding. Subject was given time to review the consent form and to discuss participation i n this study. Questions asked were answered to his satisfaction and subject voic ed desire to sign consent today. Subject signed consent without coercion and und ue influence. A copy of the signed consent was given to the subject and scanned to subjects medical record. Contact information for the study team was given to the subject. No research specific procedures took place prior to consenting. Consent visit performed 11/29. Late entry consent note. Page Mayorga MD * Patient Education - Michelle Jimenez RN - 11/27/2018 4:52 PM CDT Medication Education Kelly Yost accepted counseling and was interactive. he verbalized understandi ng. The following medications were discussed: Zovirax, Zyloprim, Levaquin, micafungin, and Protonix. Where indicated, the patient was provided with additional medication and/or dise ase-state information. All patient questions were answered and patient acknowle dged understanding of the medications, side effects and other pertinent medicati on information. Follow up should occur as needed. Continue to address: indications Michelle Jimenez RN * Care Plan - Michelle Jimenez RN - 11/27/2018 4:52 PM CDT Problem: Discharge Planning Goal: Participation in plan of care Outcome: Goal Ongoing Pt to transfer to [address] for service location. Home CPAP will be sent with the pt. Plan for bone marrow biopsy 11/29. Problem: Anxiety Goal: Alleviation of anxiety Outcome: Goal Ongoing Pt does not exhibit S/S of anxiety at this time. Problem: Pain Goal: Management of pain Outcome: Goal Ongoing Pt denies pain. Will continue to monitor. Problem: Respiratory Impairment (Non-Ventilated Patient) Goal: Effective gas exchange Outcome: Goal Ongoing Continuous pulse ox implemented. Pt is compliant with CPAP use. CPAP at bedside is pt's personal belonging. * Patient Education - Dejah Vallejo - 11/27/2018 12:53 AM CDT Medication Education Kelly Yost accepted counseling and was receptive. he verbalized understanding . The following medications were discussed: protonix Simvastatin temazepam Where indicated, the patient was provided with additional medication and/or dise ase-state information. All patient questions were answered and patient acknowle dged understanding of the medications, side effects and other pertinent medicati on information. Patient educated on POC, [facility] surroundings, pressure ulcer prevention, I&O, blood cultures Follow up should occur as needed. Continue to address: indications Dejah VALLEJO documented in this encounter Plan of Treatment Not on filedocumented as of this encounter Procedures Comments Procedure Name Priority Date/Time Associated Diagnosis MAGNESIUM CELLULAR Routine 12/01/2018 THERAPEUTICS 4:45 AM CDT COMPREHENSIVE METABOLIC Routine 12/01/2018 PANEL CELLULAR 4:45 AM CDT THERAPEUTICS CBC AND DIFF CELLULAR Routine 12/01/2018 THERAPEUTICS 4:45 AM CDT PHOSPHORUS CELLULAR Routine 11/30/2018 THERAPEUTICS 5:32 AM CDT MAGNESIUM CELLULAR Routine 11/30/2018 THERAPEUTICS 5:32 AM CDT COMPREHENSIVE METABOLIC Routine 11/30/2018 PANEL CELLULAR 5:32 AM CDT THERAPEUTICS CBC AND DIFF CELLULAR Routine 11/30/2018 THERAPEUTICS 5:32 AM CDT PTT (APTT) Routine 11/30/2018 5:32 AM CDT PROTIME INR (PT) Routine 11/30/2018 5:32 AM CDT FIBRINOGEN Routine 11/30/2018 5:32 AM CDT URIC ACID Routine 11/30/2018 5:32 AM CDT LDH-LACTATE DEHYDROGENASE Routine 11/30/2018 5:32 AM CDT HLA CLASS 1A 1B 1C AND 2 Routine 11/29/2018 [place] HIGH RES 11:20 PM CDT BASIC METABOLIC PANEL Routine 11/29/2018 11:20 PM CDT HLA CLASS 1A 1B 1C AND 2 Routine 11/29/2018 [place] HIGH RES 6:03 PM CDT HLA ANTIBODY ID Routine 11/29/2018 6:03 PM CDT HLA ANTIBODY SCREEN Routine 11/29/2018 6:03 PM CDT CMV AB IGG Routine 11/29/2018 6:03 PM CDT CONSULT IV THERAPY TEAM Routine 11/29/2018 2:32 PM CDT URINALYSIS, MICROSCOPIC Routine 11/29/2018 12:15 PM CDT URINALYSIS DIPSTICK Routine 11/29/2018 12:15 PM CDT SODIUM-URINE RANDOM Routine 11/29/2018 12:15 PM CDT OSMOLALITY-URINE RANDOM Routine 11/29/2018 12:15 PM CDT BONE MARROW 11/29/2018 11:47 AM CDT CHROMOSOMES FISH DNA STAT 11/29/2018 PROBE 11:16 AM CDT CHROMOSOMES BONE MARROW Routine 11/29/2018 11:16 AM CDT HEME PANEL NGS 65 BLD OR Routine 11/29/2018 BM 11:10 AM CDT FLOW CYTOMETRY 11/29/2018 11:10 AM CDT LEUKEMIA/LYMPHOMA PNL, Routine 11/29/2018 BONE MARROW 11:10 AM CDT FE STAIN Routine 11/29/2018 11:10 AM CDT BONE MARROW ASP Routine 11/29/2018 11:10 AM CDT BONE MARROW BIOPSY Routine 11/29/2018 11:10 AM CDT PHOSPHORUS CELLULAR Routine 11/29/2018 THERAPEUTICS 5:56 AM CDT MAGNESIUM CELLULAR Routine 11/29/2018 THERAPEUTICS 5:56 AM CDT COMPREHENSIVE METABOLIC Routine 11/29/2018 PANEL CELLULAR 5:56 AM CDT THERAPEUTICS CBC AND DIFF CELLULAR Routine 11/29/2018 THERAPEUTICS 5:56 AM CDT PTT (APTT) Routine 11/29/2018 5:56 AM CDT PROTIME INR (PT) Routine 11/29/2018 5:56 AM CDT FIBRINOGEN Routine 11/29/2018 5:56 AM CDT URIC ACID Routine 11/29/2018 5:56 AM CDT OSMOLALITY Add on 11/29/2018 5:56 AM CDT LDH-LACTATE DEHYDROGENASE Routine 11/29/2018 5:56 AM CDT AMYLASE Add on 11/29/2018 5:56 AM CDT PHOSPHORUS CELLULAR Routine 11/28/2018 THERAPEUTICS 5:33 AM CDT MAGNESIUM CELLULAR Routine 11/28/2018 THERAPEUTICS 5:33 AM CDT COMPREHENSIVE METABOLIC Routine 11/28/2018 PANEL CELLULAR 5:33 AM CDT THERAPEUTICS CBC AND DIFF CELLULAR Routine 11/28/2018 THERAPEUTICS 5:33 AM CDT PTT (APTT) Routine 11/28/2018 5:33 AM CDT PROTIME INR (PT) Routine 11/28/2018 5:33 AM CDT FIBRINOGEN Routine 11/28/2018 5:33 AM CDT URIC ACID Routine 11/28/2018 5:33 AM CDT LDH-LACTATE DEHYDROGENASE Routine 11/28/2018 5:33 AM CDT PHOSPHORUS CELLULAR Routine 11/27/2018 THERAPEUTICS 6:06 AM CDT MAGNESIUM CELLULAR Routine 11/27/2018 THERAPEUTICS 6:06 AM CDT COMPREHENSIVE METABOLIC Routine 11/27/2018 PANEL CELLULAR 6:06 AM CDT THERAPEUTICS CBC AND DIFF CELLULAR Routine 11/27/2018 THERAPEUTICS 6:06 AM CDT PTT (APTT) Routine 11/27/2018 6:06 AM CDT PROTIME INR (PT) Routine 11/27/2018 6:06 AM CDT FIBRINOGEN Routine 11/27/2018 6:06 AM CDT URIC ACID Routine 11/27/2018 6:06 AM CDT LDH-LACTATE DEHYDROGENASE Routine 11/27/2018 6:06 AM CDT VRE SCREEN Routine 11/26/2018 [...] BANK SAMPLE HOLD 11/26/2018 11:24 AM CDT PERIPHERAL SMEAR Add on 11/26/2018 11:24 AM CDT CBC AND DIFF STAT 11/26/2018 11:24 AM CDT URIC ACID Add on 11/26/2018 11:24 AM CDT LIPASE STAT 11/26/2018 11:24 AM CDT LDH-LACTATE DEHYDROGENASE Add on 11/26/2018 11:24 AM CDT COMPREHENSIVE METABOLIC STAT 11/26/2018 PANEL 11:24 AM CDT ECG 12-LEAD STAT 11/26/2018 10:54 AM CDT PRANAY PATH [facility] REF LAB 11/26/2018 SCAN 12:00 AM CDT CYTOGENETICS SCAN 11/26/2018 12:00 AM CDT CYTOGENETICS SCAN 11/26/2018 12:00 AM CDT CYTOGENETICS SCAN 11/26/2018 12:00 AM CDT ECG-SCAN 11/26/2018 12:00 AM CDT ECG-SCAN 11/26/2018 12:00 AM CDT documented in this encounter Results * MAGNESIUM CELLULAR THERAPEUTICS (12/01/2018 4:45 AM CDT) Magnesium 2.2 1.6 - 2.6 mg/dL [facility] Specimen Blood Performing Organization Address City/State/Zipcode Phone Number [facility] [address] [place] [address] * COMPREHENSIVE METABOLIC PANEL CELLULAR THERAPEUTICS (12/01/2018 4:45 AM CDT) Sodium 133 (L) 137 - 147 MMOL/L [...] (L) >60 mL/min [facility] Comment: [place] The eGFR is not validated for use in drug dosing adjustments.Continue to use estimated creatinine clearance per dosing reference text.Please contact the Clinical Pharmacist for questions. eGFR >60 >60 mL/min [facility] [place] Comment: The eGFR is not validated for use in drug dosing adjustments.Continue to use estimated creatinine clearance per dosing reference text.Please contact the Clinical Pharmacist for questions. Specimen Blood Performing Organization Address City/State/Zipcode Phone Number [facility] [address] [place] [address] * CBC AND DIFF CELLULAR THERAPEUTICS (12/01/2018 4:45 AM CDT) White Blood 2.1 (L) 4.5 - 11.0 K/UL [facility] Cells RBC 2.32 (L) 4.4 - 5.5 M/UL [facility] Hemoglobin 8.6 (L) 13.5 - 16.5 GM/DL [facility] Hematocrit 24.6 (L) 40 - 50 % [facility] MCV 106.0 (H) 80 - 100 FL [facility] MCH 37.3 (H) 26 - 34 PG [facility] MCHC 35.1 32.0 - 36.0 G/DL [facility] RDW 17.1 (H) 11 - 15 % [facility] Platelet Count 47 (L) 150 - 400 K/UL [facility] MPV 8.9 7 - 11 FL [facility] Segmented 34 (L) 41 - 77 % [facility] Neutrophils Lymphocytes 55 (H) 24 - 44 % [facility] Monocytes 4 4 - 12 % [facility] Eosinophil 3 0 - 5 % [facility] Blast 4 % [facility] Ovalocyte PRESENT [facility] Platelet MKD DEC [facility] Estimate Absolute 0.71 (L) 1.8 - 7.0 K/UL [facility] Neutrophil Count Manual Specimen Blood Performing Organization Address City/[facility]/Zipcode Phone Number [facility] [address] [place] [address] * LDH-LACTATE DEHYDROGENASE (11/30/2018 5:32 AM CDT) Lactate 188 100 - 210 U/L [facility] Dehydrogenase Specimen Blood Performing Organization Address [facility] Phone Number [facility] [address] [place] [address] * URIC ACID (11/30/2018 5:32 AM CDT) Uric Acid 3.4 (L) 4.0 - 8.0 MG/DL [facility] Specimen Blood Performing Organization Address [facility] Phone Number [facility] [address] [place] [address] * FIBRINOGEN (11/30/2018 5:32 AM CDT) Fibrinogen 502 (H) 200 - 400 MG/DL [facility] Specimen Blood Performing Organization Address [facility] Phone Number [facility] [address] [place] [address] * PHOSPHORUS CELLULAR THERAPEUTICS (11/30/2018 5:32 AM CDT) Phosphorus 3.1Comment: NOTE NEW REFERENCE 2.0 - 4.5 MG/DL [facility] RANGES Specimen Blood Performing Organization Address [facility] Cent[facility]ode Phone Number [facility] [address] [place] [address] * MAGNESIUM CELLULAR THERAPEUTICS (11/30/2018 5:32 AM CDT) Magnesium 1.9 1.6 - 2.6 mg/dL [facility] Specimen Blood Performing Organization Address [facility]/Zipcode Phone Number MAIN LAB [address] [phone] * COMPREHENSIVE METABOLIC PANEL CELLULAR THERAPEUTICS (11/30/2018 5:32 AM CDT) Sodium 131 (L) 137 - 147 MMOL/L [facility] Potassium 4.2 3.5 - 5.1 MMOL/L [facility] Chloride 104 98 - 110 MMOL/L [facility] Glucose 132 (H) 70 - 100 MG/DL MAIN LAB Blood Urea 16 7 - 25 MG/DL [facility] Nitrogen Creatinine 1.33 (H) 0.4 - 1.24 MG/DL [facility] Calcium 8.6 8.5 - 10.6 MG/DL MAIN LAB Total Protein 6.0 6.0 - 8.0 G/DL MAIN LAB Total Bilirubin 0.7 0.3 - 1.2 MG/DL MAIN LAB Albumin 3.4 (L) 3.5 - 5.0 G/DL [facility] Alk Phosphatase 62 25 - 110 U/L [facility] AST (SGOT) 15 7 - 40 U/L [facility] CO2 19 (L) 21 - 30 MMOL/L [facility] ALT (SGPT) 18 7 - 56 U/L [facility] Anion Gap 8 3 - 12 [facility] eGFR Non 53 (L) >60 mL/min [facility] Comment: [place]adorean The eGFR is not validated for use in drug dosing adjustments.Continue to use estimated creatinine clearance per dosing reference text.Please contact the Clinical Pharmacist for questions. eGFR >60 >60 mL/min [facility] [place]orean Comment: The eGFR is not validated for use in drug dosing adjustments.Continue to use estimated creatinine clearance per dosing reference text.Please contact the Clinical Pharmacist for questions. Specimen Blood Performing Organization Address City/[facility]/Zipcode Phone Number [facility] [address] [place] [address] * PTT (APTT) (11/30/2018 5:32 AM CDT) APTT 26.8 24.0 - 36.5 SEC [facility] Specimen Blood Performing Organization Address City/[facility]/Zipcode Phone Number [facility] [address] [place] [address] * PROTIME INR (PT) (11/30/2018 5:32 AM CDT) INR 1.3 (H) 0.8 - 1.2 [facility] Specimen Blood Performing Organization Address [facility]/Zipcode Phone Number [facility] [address] [place] [address] * CBC AND DIFF CELLULAR THERAPEUTICS (11/30/2018 5:32 AM CDT) White Blood 2.4 (L) 4.5 - 11.0 K/UL [facility] Cells RBC 2.39 (L) 4.4 - 5.5 M/UL [facility] Hemoglobin 8.7 (L) 13.5 - 16.5 GM/DL [facility]IN [facility] Hematocrit 25.7 (L) 40 - 50 % [facility] MCV 107.3 (H) 80 - 100 FL [facility] MAIN [facility] MCH 36.4 (H) 26 - 34 PG [facility] MCHC 33.9 32.0 - 36.0 G/DL [facility] RDW 16.7 (H) 11 - 15 % [facility] Platelet Count 32 (L) 150 - 400 K/UL [facility] MPV 9.7 7 - 11 FL [facility] Segmented 48 41 - 77 % [facility] Neutrophils Bands 5 0 - 10 % [facility] Lymphocytes 31 24 - 44 % [facility] Monocytes 4 4 - 12 % [facility] Eosinophil 5 0 - 5 % [facility] Blast 7 % [facility] MAIN [facility] ANISO PRESENT MAIN LAB MACRO PRESENT [facility]IN [facility] Platelet MKD DEC [facility] Estimate Absolute 1.27 (L) 1.8 - 7.0 K/UL [facility] Neutrophil Count Manual Specimen Blood Performing Organization Address City/State/Zipcode Phone Number MAIN LAB [address] [place] [address] * HLA CLASS 1A 1B 1C AND 2 PHENO HIGH RES (11/29/2018 11:20 PM CDT) [facility] HLA Class 1A 1B Report Available in Epic REFERENCE LAB 1C and 2 Pheno High Res Specimen Blood Performing Organization Address City/[facility]/Zipcode Phone Number REFERENCE LAB REFERENCE LAB See results for address. * BASIC METABOLIC PANEL (11/29/2018 11:20 PM CDT) [facility] Sodium 130 (L) 137 - 147 MMOL/L MAIN LAB Potassium 4.0 3.5 - 5.1 [...] (L) >60 mL/min [facility]IN [facility] Comment: [place] The eGFR is not validated for use in drug dosing adjustments.Continue to use estimated creatinine clearance per dosing reference text.Please contact the Clinical Pharmacist for questions. eGFR >60 >60 mL/min [facility]IN [facility] [place] Comment: The eGFR is not validated for use in drug dosing adjustments.Continue to use estimated creatinine clearance per dosing reference text.Please contact the Clinical Pharmacist for questions. Specimen Blood Performing Organization Address City/State/Zipcode Phone Number MAIN LAB [address] [place] [address] * HLA ANTIBODY ID (11/29/2018 6:03 PM CDT) HLA Antibody ID Report Available in Epic REFERENCE LAB Performing Organization Address City/[facility] Phone Number REFERENCE LAB REFERENCE LAB See results for address. * HLA CLASS 1A 1B 1C AND 2 PHENO HIGH RES (11/29/2018 6:03 PM CDT) HLA Class 1A 1B Report Available in Epic REFERENCE LAB 1C and 2 Pheno High Res Specimen Blood Narrative Performed At Performing Organization Address City/State/Zipcode Phone Number REFERENCE LAB REFERENCE LAB See results for address. * HLA ANTIBODY SCREEN (11/29/2018 6:03 PM CDT) HLA Antibody Report Available in [facility] REFERENCE LAB Screen Specimen Blood Narrative Performed At Performing Organization Address City/State/Zipcode Phone Number REFERENCE LAB REFERENCE LAB See results for address. * CMV AB IGG (11/29/2018 6:03 PM CDT) CMV, IgG NEG [facility]IN [facility] Specimen Blood Performing Organization Address City/State/Zipcode Phone Number [facility] MAIN [facility] [address] [place] [address] * URINALYSIS, MICROSCOPIC (11/29/2018 12:15 PM CDT) WBCs,UA NONE 0 - 2 /HPF [facility] MAIN [facility] RBCs,UA NONE 0 - 3 /HPF [facility]IN [facility] Specimen Urine - Urine Performing Organization Address City/State/Zipcode Phone Number MAIN LAB [address] [place] [address] * URINALYSIS DIPSTICK (11/29/2018 12:15 PM CDT) Color,UA YELLOW [facility] MAIN [facility] Turbidity,UA CLEAR CLEAR-CLEAR [facility] Specific 1.006 1.003 - 1.035 [facility] MAIN [facility] [place]-Urine pH,UA 6.0 5.0 - 8.0 [facility] MAIN [facility] Protein,UA NEG NEG-NEG [facility] Glucose,UA NEG NEG-NEG [facility] Ketones,UA NEG NEG-NEG [facility] Bilirubin,UA NEG NEG-NEG [facility] Blood,UA NEG NEG-NEG [facility]IN [facility] Urobilinogen,UA NORMAL NORM-NORMAL [facility] Nitrite,UA NEG NEG-NEG [facility]IN [facility] Leukocytes,UA NEG NEG-NEG [facility] Urine Ascorbic NEG NEG-NEG [facility] MAIN [facility] Acid, UA Specimen Urine - Urine Performing Organization Address [facility] Phone Number MAIN LAB [address] [place] [address] * OSMOLALITY-URINE RANDOM (11/29/2018 12:15 PM CDT) Osmolality-Urin 236 50 - 1,400 MOS/KG [facility] MAIN [facility] e Specimen Urine - Urine Performing Organization Address [facility] Phone Number MAIN LAB [address] [place] [address] * SODIUM-URINE RANDOM (11/29/2018 12:15 PM CDT) Sodium, Random 41 MMOL/L MAIN LAB Specimen Urine - Urine Performing Organization Address [facility] Phone Number MAIN LAB [address] [place] [address] * BONE MARROW (11/29/2018 11:47 AM CDT) PATHOLOGY [facility] [email or web address] Department of Pathology and Laboratory Medicine [address] [place] [address] Surgical Pathology Office:[phone] :[phone] SURGICAL PATHOLOGY REPORT NAME: KELLY YOST SURG PATH #: [id number] MR #: [id number] ALT ID #: LOCATION: DISCHARGED DATE OF PROCEDURE: 11/29/2018 AGE:73 SEX: M DATE RECEIVED: 11/29/2018 : 1945TIME RECEIVED:11:47 PHYSICIAN: DAISY DIAZ DATE OF REPORT: 12/01/2018 COPY TO:DATE OF [...] is submitted in cassette B1 after decalcification. () cg/11/29/2018 Microscopic Description: CBC Data:HGB 9.2 (g/dL); [...] of Pathology and Laboratory Medicine of the [facility] ([employer]) in compliance with CLIA'88 [...] of Pathology and Laboratory Medicine of the [facility].It has not been cleared or approved by the FDA.The FDA has determined that such clearance or approval is not necessary. Performing Organization Address City/State/Zipcode Phone Number [facility] [address] [place] [address] * CHROMOSOMES BONE MARROW (11/29/2018 11:16 AM CDT) Chromosomes Cytogenetics Report Available [facility] Bone Marrow in Epic Specimen Bone Marrow Performing Organization Address City/[facility]ode Phone Number [facility] [address] [place] [address] * CHROMOSOMES FISH DNA PROBE (11/29/2018 11:16 AM CDT) Chromosomes Cytogenetics Report Available [facility] Fish DNA Probe in Epic Specimen Bone Marrow Performing Organization Address [facility] Phone Number [facility] [address] [place] [address] * FLOW CYTOMETRY (11/29/2018 11:10 AM CDT) PATHOLOGY [facility] [email or web address] Kai Soliz MD, Director of Flow Cytometry Laboratory Department of Pathology and Laboratory Medicine [address] [place] [address] Surgical Pathology Office:[phone] :[phone] FLOW CYTOMETRY REPORT NAME: KELLY YOST SURG PATH #: [id number] MR #: [id number] SPECIMEN CLASS: LC BILLING #: [id number] ALT ID #:LOCATION: 42 DATE OF PROCEDURE: 11/29/2018 AGE:73 SEX: M DATE RECEIVED: 11/29/2018 : 1945TIME RECEIVED:12:01 PHYSICIAN: DAISY DIAZ DATE OF REPORT: 11/29/2018 COPY TO: DO Maureen DECKER M.D. [facility] DATE OF PRINTIN11/29/2018 Material Received: A: Bone [...] Panel Myeloid Associated Markers (% Positive Cells): YN73p=16; BX73f=2; CD13=80; CD14=1; CD15=5; CD33=66; CD64=9; PK124=53; cyMPO=42; cyMPO+CD34+=20 B Cell Associated Markers (% Positive Cells): CD19=5; CD20=4; qzNE25=7; cxPB50e=0 [place]=0; Lambda=1; [place]:Lambda ratio=0.0 T Cell Associated Markers (% Positive Cells): CD1a=0; CD2=1; sCD3=0; cyCD3=0; CD4=0; CD5=0; CD7=4; CD8=0 CD4:CD8 ratio=n/a Miscellaneous Markers (% Positive Cells): CD10=1; CD34=72; CD34+CD13+=65; CD34+CD117+=69; CD38=99; CD45= 20; CD56=31; VM884=19; HLA-DR=71; nTdT=0 Cell Viability (%):n/a Number of Cells Analyzed:10,000 Total Number of Markers: 31 Summary of Marker Combinations: Dr/33/34/13/123/45/56/15; 117/34/64/11b/45/14/11c; K/L/34/10/19/45/38/20; 2/7/4/3/1a/45/5/8; nTdt/cy22/34/cy3/cy79a/45/cyMP O/19 This test was developed and its performance characteristics determined by the [facility] Flow Cytometry Laboratory.It has not been cleared or approved by the U.S. Food and Drug Administration (FDA).The FDA has determined that such clearance or approval is not necessary. Performing Organization Address City/[facility]/Zipcode Phone Number MAIN LAB [address] [place] [address] * HEME PANEL NGS 65 BLD OR BM (11/29/2018 11:10 AM CDT) Heme Panel NGS Report Available in Epic REFERENCE LAB 65 BLD or Bone Marrow Performing Organization Address [facility] Centercode Phone Number REFERENCE LAB REFERENCE LAB See results for address. * LEUKEMIA/LYMPHOMA PNL, BONE MARROW (11/29/2018 11:10 AM CDT) Leuk/Lymph SEE PATHOLOGY REPORT MAIN LAB Interpretation Specimen/LLM BONE MARROW MAIN LAB Specimen Bone Marrow Performing Organization Address [facility] Cent[facility]ode Phone Number MAIN LAB [address] [place] [address] * FE STAIN (11/29/2018 11:10 AM CDT) Bone Marrow FE SEE PATHOLOGY REPORT MAIN LAB Specimen Bone Marrow - Bone Marrow Performing Organization Address [facility]/Zipcode Phone Number MAIN LAB [address] [place] [address] * BONE MARROW BIOPSY (11/29/2018 11:10 AM CDT) Bone Marrow Bx SEE PATHOLOGY REPORT MAIN LAB Specimen Bone Marrow - Bone Marrow Performing Organization Address [facility]/Zipcode Phone Number MAIN LAB [address] [place] [address] * BONE MARROW ASP (11/29/2018 11:10 AM CDT) Bone Marrow Asp SEE PATHOLOGY REPORT MAIN LAB Specimen Bone Marrow - Bone Marrow Performing Organization Address City/[facility]/Zipcode Phone Number [facility] MAIN [facility] [address] [place] [address] * AMYLASE (11/29/2018 5:56 AM CDT) Amylase 39 24 - 100 U/L [facility]IN [facility] Performing Organization Address [facility] Phone Number [facility] MA[facility] [address] [place] [address] * OSMOLALITY (11/29/2018 5:56 AM CDT) Osmolality 276 (L) 280 - 307 MOSMOL/KG [facility]IN [facility] Performing Organization Address [facility]ode Phone Number [facility] MA[facility] [address] [place] [address] * LDH-LACTATE DEHYDROGENASE (11/29/2018 5:56 AM CDT) Lactate 208 100 - 210 U/L MAIN LAB Dehydrogenase Specimen Blood Performing Organization Address [facility]ode Phone Number MAIN LAB [address] [place] [address] * URIC ACID (11/29/2018 5:56 AM CDT) Uric Acid 3.9 (L) 4.0 - 8.0 MG/DL MAIN LAB Specimen Blood Performing Organization Address [facility] Cent[facility]ode Phone Number MAIN LAB [address] [place] [address] * FIBRINOGEN (11/29/2018 5:56 AM CDT) Fibrinogen 490 (H) 200 - 400 MG/DL [facility]IN [facility] Specimen Blood Performing Organization Address [facility] Cent[facility]ode Phone Number MAIN LAB [address] [place] [address] * PHOSPHORUS CELLULAR THERAPEUTICS (11/29/2018 5:56 AM CDT) Phosphorus 3.1Comment: NOTE NEW REFERENCE 2.0 - 4.5 MG/DL [facility] MAIN [facility] RANGES Specimen Blood Performing Organization Address [facility]/Zipcode Phone Number [facility] MAIN [facility] [address] [place] [address] * MAGNESIUM CELLULAR THERAPEUTICS (11/29/2018 5:56 AM CDT) Magnesium 2.0 1.6 - 2.6 mg/dL [facility]IN [facility] Specimen Blood Performing Organization Address City/[facility]/Zipcode Phone Number MAIN LAB [address] [place] [address] * COMPREHENSIVE METABOLIC PANEL CELLULAR THERAPEUTICS (11/29/2018 5:56 AM CDT) Sodium 130 (L) 137 - 147 MMOL/L [facility] Potassium 3.7 3.5 - 5.1 MMOL/L [facility] Chloride 101 98 - 110 MMOL/L [facility] Glucose 110 (H) 70 - 100 MG/DL [facility] Blood Urea 16 7 - 25 MG/DL [facility] Nitrogen Creatinine 1.37 (H) 0.4 - 1.24 MG/DL [facility] Calcium 8.8 8.5 - 10.6 MG/DL [facility] Total Protein 6.4 6.0 - 8.0 G/DL [facility] Total Bilirubin 0.8 0.3 - 1.2 MG/DL [facility] Albumin 3.6 3.5 - 5.0 G/DL [facility] Alk Phosphatase 63 25 - 110 U/L [facility] AST (SGOT) 15 7 - 40 U/L [facility] CO2 21 21 - 30 MMOL/L [facility] ALT (SGPT) 21 7 - 56 U/L [facility] Anion Gap 8 3 - 12 [facility] eGFR Non 51 (L) >60 mL/min [facility] Comment: [place] The eGFR is not validated for use in drug dosing adjustments.Continue to use estimated creatinine clearance per dosing reference text.Please contact the Clinical Pharmacist for questions. eGFR >60 >60 mL/min [facility] [place] Comment: The eGFR is not validated for use in drug dosing adjustments.Continue to use estimated creatinine clearance per dosing reference text.Please contact the Clinical Pharmacist for questions. Specimen Blood Performing Organization Address City/[facility]/Zipcode Phone Number MAIN LAB [address] [place] [address] * PTT (APTT) (11/29/2018 5:56 AM CDT) APTT 26.8 24.0 - 36.5 SEC MAIN LAB Specimen Blood Performing Organization Address City/[facility]/Zipcode Phone Number MAIN LAB [address] [place] [address] * PROTIME INR (PT) (11/29/2018 5:56 AM CDT) INR 1.3 (H) 0.8 - 1.2 [facility] MAIN [facility] Specimen Blood Performing Organization Address City/[facility]/Zipcode Phone Number MAIN LAB [address] [place] [address] * CBC AND DIFF CELLULAR THERAPEUTICS (11/29/2018 5:56 AM CDT) White Blood 2.3 (L) 4.5 - 11.0 K/UL [facility] MAIN [facility] Cells RBC 2.49 (L) 4.4 - 5.5 M/UL [facility] Hemoglobin 9.2 (L) 13.5 - 16.5 GM/DL [facility]IN [facility] Hematocrit 26.4 (L) 40 - 50 % [facility]IN [facility] MCV 106.2 (H) 80 - 100 FL [facility]IN [facility] MCH 36.8 (H) 26 - 34 PG [facility] MCHC 34.6 32.0 - 36.0 G/DL [facility]IN [facility] RDW 16.5 (H) 11 - 15 % [facility]IN [facility] Platelet Count 38 (L) 150 - 400 K/UL [facility]IN [facility] MPV 8.3 7 - 11 FL [facility]IN [facility] Nucleated RBCs 1 K/UL [facility]IN [facility] Segmented 30 (L) 41 - 77 % [facility] Neutrophils Bands 5 0 - 10 % [facility] Lymphocytes 59 (H) 24 - 44 % [facility] Monocytes 1 (L) 4 - 12 % [facility] Eosinophil 3 0 - 5 % [facility]IN [facility] Blast 2 % [facility] MAIN [facility] ANISO PRESENT [facility] MAIN [facility] POLY PRESENT [facility]IN [facility] Platelet MKD DEC [facility]IN [facility] Estimate Absolute 0.81 (L) 1.8 - 7.0 K/UL [facility]IN [facility] Neutrophil Count Manual Specimen Blood Performing Organization Address City/[facility]/Zipcode Phone Number [facility] MAIN [facility] [address] [place] [address] * LDH-LACTATE DEHYDROGENASE (11/28/2018 5:33 AM CDT) Lactate 190 100 - 210 U/L MAIN LAB Dehydrogenase Specimen Blood Performing Organization Address City/State/Zipcode Phone Number [facility] MAIN [facility] [address] [place] [address] * URIC ACID (11/28/2018 5:33 AM CDT) Uric Acid 4.4 4.0 - 8.0 MG/DL [facility]IN [facility] Specimen Blood Performing Organization Address City/[facility]/Zipcode Phone Number [facility] MAIN [facility] [address] [place] [address] * FIBRINOGEN (11/28/2018 5:33 AM CDT) Fibrinogen 480 (H) 200 - 400 MG/DL [facility] Specimen Blood Performing Organization Address City/[facility]ode Phone Number [facility] [address] [place] [address] * PHOSPHORUS CELLULAR THERAPEUTICS (11/28/2018 5:33 AM CDT) Phosphorus 3.3Comment: NOTE NEW REFERENCE 2.0 - 4.5 MG/DL [facility] MAIN [facility] RANGES Specimen Blood Performing Organization Address City/[facility]ode Phone Number [facility] [address] [place] [address] * MAGNESIUM CELLULAR THERAPEUTICS (11/28/2018 5:33 AM CDT) Magnesium 1.9 1.6 - 2.6 mg/dL [facility] Specimen Blood Performing Organization Address [facility]ercode Phone Number [facility] [address] [place] [address] * COMPREHENSIVE METABOLIC PANEL CELLULAR THERAPEUTICS (11/28/2018 5:33 AM CDT) Sodium 133 (L) 137 - 147 MMOL/L [facility] Potassium 3.9 3.5 - 5.1 MMOL/L [facility] Chloride 105 98 - 110 MMOL/L [facility] Glucose 115 (H) 70 - 100 MG/DL [facility] Blood Urea 17 7 - 25 MG/DL [facility] Nitrogen Creatinine 1.45 (H) 0.4 - 1.24 MG/DL [facility] Calcium 8.9 8.5 - 10.6 MG/DL [facility] Total Protein 6.2 6.0 - 8.0 G/DL [facility] Total Bilirubin 0.8 0.3 - 1.2 MG/DL [facility] Albumin 3.5 3.5 - 5.0 G/DL [facility] Alk Phosphatase 58 25 - 110 U/L [facility] AST (SGOT) 15 7 - 40 U/L [facility] CO2 20 (L) 21 - 30 MMOL/L [facility] ALT (SGPT) 20 7 - 56 U/L [facility] Anion Gap 8 3 - 12 [facility] eGFR Non 48 (L) >60 mL/min [facility] Comment: [place] The eGFR is not validated for use in drug dosing adjustments.Continue to use estimated creatinine clearance per dosing reference text.Please contact the Clinical Pharmacist for questions. eGFR 58 (L) >60 mL/min MAIN LAB [place] Comment: The eGFR is not validated for use in drug dosing adjustments.Continue to use estimated creatinine clearance per dosing reference text.Please contact the Clinical Pharmacist for questions. Specimen Blood Performing Organization Address City/State/Zipcode Phone Number [facility] [address] [place] [address] * PTT (APTT) (11/28/2018 5:33 AM CDT) APTT 20.1 (L) 24.0 - 36.5 SEC [facility] Specimen Blood Performing Organization Address City/[facility]/Zipcode Phone Number [facility] [address] [place] [address] * PROTIME INR (PT) (11/28/2018 5:33 AM CDT) INR 1.2 0.8 - 1.2 [facility] Specimen Blood Performing Organization Address City/[facility]/Zipcode Phone Number [facility] [address] [place] [address] * CBC AND DIFF CELLULAR THERAPEUTICS (11/28/2018 5:33 AM CDT) White Blood 4.2 (L) 4.5 - 11.0 K/UL [facility] Cells RBC 2.48 (L) 4.4 - 5.5 M/UL [facility] Hemoglobin 9.3 (L) 13.5 - 16.5 GM/DL [facility] Hematocrit 26.3 (L) 40 - 50 % [facility] MCV 105.7 (H) 80 - 100 FL [facility] MCH 37.5 (H) 26 - 34 PG [facility] MCHC 35.5 32.0 - 36.0 G/DL [facility] RDW 16.5 (H) 11 - 15 % MAIN LAB Platelet Count 38 (L) 150 - 400 K/UL [facility] MPV 8.6 7 - 11 FL [facility] Nucleated RBCs 1 K/UL [facility]IN [facility] Segmented 33 (L) 41 - 77 % MAIN LAB Neutrophils Lymphocytes 50 (H) 24 - 44 % MAIN LAB Monocytes 3 (L) 4 - 12 % MAIN LAB Eosinophil 5 0 - 5 % MAIN LAB Blast 9 % MAIN LAB POIK PRESENT MAIN LAB Ovalocyte PRESENT MAIN LAB Platelet MKD DEC MAIN LAB Estimate Absolute 1.39 (L) 1.8 - 7.0 K/UL MAIN LAB Neutrophil Count Manual Specimen Blood Performing Organization Address City/[facility]/Zipcode Phone Number MAIN LAB [address] [place] [address] * LDH-LACTATE DEHYDROGENASE (11/27/2018 6:06 AM CDT) Lactate 193 100 - 210 U/L MAIN LAB Dehydrogenase Specimen Blood Performing Organization Address City/[facility] Phone Number MAIN LAB [address] [place] [address] * URIC ACID (11/27/2018 6:06 AM CDT) Uric Acid 6.1 4.0 - 8.0 MG/DL MAIN LAB Specimen Blood Performing Organization Address [facility] Phone Number MAIN LAB [address] [place] [address] * FIBRINOGEN (11/27/2018 6:06 AM CDT) Fibrinogen 450 (H) 200 - 400 MG/DL MAIN LAB Specimen Blood Performing Organization Address City/[facility] Phone Number MAIN LAB [address] [place] [address] * PHOSPHORUS CELLULAR THERAPEUTICS (11/27/2018 6:06 AM CDT) Phosphorus 2.9Comment: NOTE NEW REFERENCE 2.0 - 4.5 MG/DL MAIN LAB RANGES Specimen Blood Performing Organization Address City/[facility]/Zipcode Phone Number MAIN LAB [address] [place] [address] * MAGNESIUM CELLULAR THERAPEUTICS (11/27/2018 6:06 AM CDT) Magnesium 2.0 1.6 - 2.6 mg/dL MAIN LAB Specimen Blood Performing Organization Address City/[facility]/Zipcode Phone Number MAIN LAB [address] [place] [address] * COMPREHENSIVE METABOLIC PANEL CELLULAR THERAPEUTICS (11/27/2018 6:06 AM CDT) Sodium 136 (L) 137 - 147 MMOL/L MAIN LAB Potassium 4.1 3.5 - 5.1 MMOL/L [facility] Chloride 107 98 - 110 MMOL/L MAIN LAB Glucose 116 (H) 70 - 100 MG/DL [facility]IN [facility] Blood Urea 17 7 - 25 MG/DL [facility]IN [facility] Nitrogen Creatinine 1.30 (H) 0.4 - 1.24 MG/DL [facility]IN [facility] Calcium 8.7 8.5 - 10.6 MG/DL [facility] Total Protein 6.2 6.0 - 8.0 G/DL [facility] Total Bilirubin 1.0 0.3 - 1.2 MG/DL [facility] Albumin 3.6 3.5 - 5.0 G/DL MAIN LAB Alk Phosphatase 59 25 - 110 U/L MAIN LAB AST (SGOT) 22 7 - 40 U/L [facility] CO2 22 21 - 30 MMOL/L [facility] ALT (SGPT) 25 7 - 56 U/L [facility] Anion Gap 7 3 - 12 MAIN LAB eGFR Non 54 (L) >60 mL/min [facility] Comment: [place] The eGFR is not validated for use in drug dosing adjustments.Continue to use estimated creatinine clearance per dosing reference text.Please contact the Clinical Pharmacist for questions. eGFR >60 >60 mL/min [facility] [place] Comment: The eGFR is not validated for use in drug dosing adjustments.Continue to use estimated creatinine clearance per dosing reference text.Please contact the Clinical Pharmacist for questions. Specimen Blood Performing Organization Address [facility]/Zipcode Phone Number [facility] [address] [place] [address] * PTT (APTT) (11/27/2018 6:06 AM CDT) APTT 23.6 (L) 24.0 - 36.5 SEC [facility] Specimen Blood Performing Organization Address [facility]/Zipcode Phone Number [facility] [address] [place] [address] * PROTIME INR (PT) (11/27/2018 6:06 AM CDT) INR 1.1 0.8 - 1.2 [facility] Specimen Blood Performing Organization Address [facility] Hospital/Zipcode Phone Number [facility] [address] [place] [address] * CBC AND DIFF CELLULAR THERAPEUTICS (11/27/2018 6:06 AM CDT) Pathologist [facility] [place] White Blood 2.0 (L) 4.5 - 11.0 K/UL MAIN LAB Cells RBC 2.60 (L) 4.4 - 5.5 M/UL MAIN LAB Hemoglobin 10.1 (L) 13.5 - 16.5 GM/DL MAIN LAB Hematocrit 27.9 (L) 40 - 50 % MAIN LAB MCV 107.3 (H) 80 - 100 FL MAIN LAB MCH 39.0 (H) 26 - 34 PG MAIN LAB MCHC 36.3 (H) 32.0 - 36.0 G/DL MAIN LAB RDW 17.1 (H) 11 - 15 % [facility] Platelet Count 40 (L) 150 - 400 K/UL MAIN LAB MPV 8.4 7 - 11 FL MAIN LAB Segmented 37 (L) 41 - 77 % MAIN LAB Neutrophils Lymphocytes 40 24 - 44 % MAIN LAB Monocytes 11 4 - 12 % MAIN LAB Eosinophil 5 0 - 5 % MAIN LAB Basophil 1 0 - 2 % [facility] Metamyelocyte 1 % MAIN LAB Blast 5 % MAIN LAB ANISO PRESENT MAIN LAB POLY PRESENT MAIN LAB MACRO PRESENT MAIN LAB Platelet MKD DEC MAIN LAB Estimate Absolute 0.74 (L) 1.8 - 7.0 K/UL MAIN LAB Neutrophil Count Manual Specimen Blood Performing Organization Address City/[facility]/Zipcode Phone Number MAIN LAB [address] [place] [address] * VRE SCREEN (11/26/2018 10:00 PM CDT) Battery Name VRE SCREEN MAIN LAB Specimen PERIRECTAL SWAB [facility] Description Special NONE MAIN LAB Requests Culture NO VRE ISOLATED MAIN LAB Report Status FINAL MAIN LAB 11/28/2018 Specimen Perirectal Swab Performing Organization Address City/[facility]/Zipcode Phone Number MAIN LAB [address] [place] [address] * CULTURE-BLOOD W/SENSITIVITY (11/26/2018 9:55 PM CDT) Battery Name BLOOD CULTURE MAIN LAB Specimen BLOOD MAIN LAB Description RIGHT HAND Special NONE [facility] Requests Culture NO GROWTH 5 DAYS MAIN LAB Report Status FINAL MAIN LAB 12/02/2018 Specimen Blood Performing Organization Address City/[facility]/Zipcode Phone Number [facility] [address] [place] [address] * FIBRINOGEN (11/26/2018 9:49 PM CDT) Fibrinogen 449 (H) 200 - 400 MG/DL [facility] Performing Organization Address City/[facility]/Zipcode Phone Number ROC MAIN LAB [address] [place] [address] * CULTURE-BLOOD W/SENSITIVITY (11/26/2018 9:43 PM CDT) Battery Name BLOOD CULTURE MAIN LAB Specimen BLOOD MAIN LAB Description LEFT HAND Special NONE MAIN LAB Requests Culture NO GROWTH 5 DAYS MAIN LAB Report Status FINAL MAIN LAB 12/02/2018 Specimen Blood Performing Organization Address City/[facility] Number [facility] [address] [place] [address] * 2-D + DOPPLER ECHOCARDIOGRAM (11/26/2018 2:57 [...] 0.10 m/s OTHER OUTSIDE LAB LVOT peak maria guadalupe 0.84 m/s OTHER OUTSIDE LAB LVOT peak [...] cm OTHER OUTSIDE LAB MV Peak A Maria Guadalupe 0.99 m/s OTHER OUTSIDE LAB MV Peak E Maria Guadalupe 0.65 m/s OTHER OUTSIDE PW LAB Right Heart 2.04 >1.7 cm OTHER OUTSIDE Systolic Mmode LAB TAPSE Right 4.45 2.5 - 4.1 cm OTHER OUTSIDE Ventricular LAB Basal Diameter Sinus 3.49 2.8 - 4.0 cm OTHER OUTSIDE LAB CV ECHO PV Odette Lipari, RDCS Definity OTHER OUTSIDE DESPATCH CLERK LAB FS 43.37 28 - 44 % OTHER OUTSIDE LAB EF 73.72 % OTHER OUTSIDE LAB LV mass 145.91 96 - 200 g OTHER OUTSIDE LAB RWT 0.52 <=0.42 OTHER OUTSIDE LAB Aortic valve 1.22 cm2 OTHER OUTSIDE area= LAB AV index 0.26 OTHER OUTSIDE ([place]) LAB E/A ratio 0.66 OTHER OUTSIDE LAB LVOT area 3.80 cm2 OTHER OUTSIDE LAB LVOT stroke 72.23 cm3 OTHER OUTSIDE volume LAB TV rest 33 mmHg OTHER OUTSIDE pulmonary LAB artery pressure E/E' ratio 6.50 OTHER OUTSIDE LAB Right Heart 0.136 m/s OTHER OUTSIDE Systolic TDI S' LAB Left Atrium 14.17 16 - 34 OTHER OUTSIDE Index LAB Cardiology Siemens [id number] OTHER OUTSIDE Ultrasound LAB Machine Left Ventricle [...] 12:37 PM CDT) Impressions Performed At [facility] - Jvtx[facility]-g[facility]-Nc[facility] Ultrasound K[facility] RAD RESULTS Exam Date: 11/26/2018 Exam Type: POC ED US CARDIAC LTD Water Pump Installer: Joce Elizondo Attending: Hever Guillen Worksheet: ED-Cardiac Clinical Indication(s) for exam: Chest pain Views: Parasternal Long [place]: Limited Parasternal Short [place]: Limited Apical Four-Chamber: Limited Subxiphoid (4 chamber): Limited Subxiphoid IVC: Adequate Apical 2 Chamber: Not obtained Apical Long [place]: Not obtained Subxiphoid LV Short [place]: Not obtained Suprasternal Notch: Not obtained Other: [...] - 12/20/2018 10:10 PM CDT [address]PRESSION [facility] - Prtne-wl-Oyul Ultrasound Exam Date: 11/26/2018 Exam Type: POC ED US CARDIAC LTD Water Pump Installer: Joce Elizondo Attending: Hever Guillen Worksheet: ED-Cardiac Clinical Indication(s) for exam: Chest pain Views: Parasternal Long [place]: Limited Parasternal Short [place]: Limited Apical Four-Chamber: Limited Subxiphoid (4 chamber): Limited Subxiphoid IVC: Adequate Apical 2 Chamber: Not obtained Apical Long [place]: Not obtained Subxiphoid LV Short [place]: Not obtained Suprasternal Notch: Not obtained Other: [...] 2018 at 10:08:06 PM Performing Organization Address City/State/[place]coco Phone Number RAD RESULTS * URINALYSIS, MICROSCOPIC (11/26/2018 11:53 AM CDT) Pathologist [facility] [place] WBCs,UA 0-2 0 - 2 /HPF [facility]IN [facility] RBCs,UA 0-2 0 - 3 /HPF [facility] MAIN [facility] MucousUA TRACE [facility] MAIN [facility] Specimen Urine - Urine Performing Organization Address [facility] [place] Phone Number [facility] [address] [place] [address] * URINALYSIS DIPSTICK (11/26/2018 11:53 AM CDT) Color,UA YELLOW [facility] Turbidity,UA CLEAR CLEAR-CLEAR [facility] Specific 1.014 1.003 - 1.035 [facility] [place]-Urine pH,UA 6.0 5.0 - 8.0 [facility] Protein,UA NEG NEG-NEG [facility] Glucose,UA NEG NEG-NEG [facility] Ketones,UA NEG NEG-NEG [facility] Bilirubin,UA NEG NEG-NEG [facility] Blood,UA NEG NEG-NEG [facility] Urobilinogen,UA NORMAL NORM-NORMAL [facility] Nitrite,UA NEG NEG-NEG [facility] Leukocytes,UA NEG NEG-NEG [facility] Urine Ascorbic NEG NEG-NEG [facility] Acid, UA Specimen Urine - Urine Performing Organization Address [facility] [place] Phone Number [facility] [address] [place] [address] * BNP POC ER (11/26/2018 11:52 AM CDT) BNP POC <15.0 0 - 100 PG/ML [facility] Performing Organization Address [facility] [place] Phone Number [facility] [address] [place] [address] * POC TROPONIN (11/26/2018 11:26 AM CDT) Ufuqocty-S-PCH 0.02 0.00 - 0.05 NG/ML [facility] Performing Organization Address [facility] Phone Number [facility] [address] [place] [address] * URIC ACID (11/26/2018 11:24 AM CDT) Pathologist [facility] [place] Uric Acid 5.9 4.0 - 8.0 MG/DL [facility] Performing Organization Address [facility] Phone Number MAIN LAB [address] [place] [address] * LDH-LACTATE DEHYDROGENASE (11/26/2018 11:24 AM CDT) Lactate 323 (H) 100 - 210 U/L MAIN LAB Dehydrogenase Performing Organization Address [facility] Phone Number MAIN LAB [address] [place] [address] * PERIPHERAL SMEAR (11/26/2018 11:24 AM CDT) Peripheral OTHERS=BLASTS [facility] Smear Pathologist INTERPRETED BY SAMSON VALENZUELA M.D. MAIN LAB Signature By the PATH SIGNATURE ABOVE, I attest that I have personally formulated the final interpretation expressed in this report and that the above diagnosis is based upon my examination of the slides and/or other material indicated in this report. Performing Organization Address City/[facility] Cent[facility]ode Phone Number MAIN LAB [address] [place] [address] * BLOOD BANK SAMPLE HOLD (11/26/2018 11:24 AM CDT) BB Sample hold IN LAB MAIN LAB Performing Organization Address [facility] Cent[facility]ode Phone Number MAIN LAB [address] [place] [address] * LIPASE (11/26/2018 11:24 AM CDT) Lipase 10 (L) 11 - 82 U/L MAIN LAB Specimen Blood Performing Organization Address [facility] Cent[facility]ode Phone Number MAIN LAB [address] [place] [address] * COMPREHENSIVE METABOLIC PANEL (11/26/2018 11:24 AM [...] (L) >60 mL/min [facility] Comment: Salvad[place] The eGFR is not validated for use in drug dosing adjustments.Continue to use estimated creatinine clearance per dosing reference text.Please contact the Clinical Pharmacist for questions. eGFR >60 >60 mL/min [facility] Salv[place]orean Comment: The eGFR is not validated for use in drug dosing adjustments.Continue to use estimated creatinine clearance per dosing reference text.Please contact the Clinical Pharmacist for questions. Specimen Blood Performing Organization Address City/State/Zipcode Phone Number MAIN LAB [address] [place] [address] * CBC AND DIFF (11/26/2018 11:24 AM CDT) White Blood 2.9 (L) 4.5 - 11.0 K/UL [facility] MAIN [facility] Cells RBC 3.00 (L) 4.4 - [...] TO AND READ BACK BY/TIME/TECH Orestes BENITEZ MD/1330/OSIEL Normal RBC NORMAL [facility]IN [facility] Morph Platelet MKD DEC [facility] Estimate Absolute 0.96 (L) 1.8 - 7.0 K/UL [facility] MAIN [facility] Neutrophil Count Manual Specimen Blood Performing Organization Address City/State/Zipcode Phone Number [facility] [address] [place] [address] * ECG-SCAN (11/26/2018 12:00 AM CDT) Narrative Performed At Ordered by an unspecified provider. * ECG-SCAN (11/26/2018 12:00 AM CDT) Narrative Performed At Ordered by an unspecified provider. * PRANAY PATH MOLEC REF LAB SCAN (11/26/2018 12:00 AM CDT) Narrative Performed At Ordered by an unspecified provider. * CYTOGENETICS SCAN (11/26/2018 12:00 AM CDT) Narrative Performed At Ordered by an unspecified provider. * CYTOGENETICS SCAN (11/26/2018 12:00 AM CDT) Narrative Performed At Ordered by an unspecified provider. * CYTOGENETICS SCAN (11/26/2018 12:00 AM CDT) Narrative Performed At Ordered by an unspecified provider. 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 Administered Medications Action Date Dose Rate Site Medication Order MAR Action 11/28/2018 5:35 AM CDT 650 mg acetaminophen (TYLENOL) tablet 650 mg Given 650 mg, Oral, ONCE, 1 dose, 11/28/18 at 0545, TOTAL ACETAMINOPHEN DOSE NOT TO EXCEED 4GM DAILY, 11/28/2018 1:38 PM CDT 30 mL acetaminophen/lidocaine/antacid DS(#) Given (GI COCKTAIL) 1:1:3 suspension 30 mL 30 mL, Oral, ONCE, 1 dose, 11/28/18 at 1015, 30mL (1:1:3)=192mg/6mL acetamin-6mL 2% vis lidocaine-18mL Antacid DS, 11/29/2018 7:26 PM CDT 30 mL acetaminophen/lidocaine/antacid DS(#) Given (GI COCKTAIL) 1:1:3 suspension 30 mL 30 mL, Oral, ONCE, 1 dose, 11/29/18 at 1845, 30mL (1:1:3)=192mg/6mL acetamin-6mL 2% vis lidocaine-18mL Antacid DS, 11/30/2018 9:31 AM CDT 800 mg acyclovir (ZOVIRAX) tablet 800 mg Given 800 mg, Oral, TWICE DAILY, First dose on 11/27/18 at 0900, Until Discontinued 800 mg Given 11/29/2018 8:09 PM CDT 800 mg Given 11/29/2018 8:26 AM CDT 11/29/2018 5:34 AM CDT 2 puffs albuterol (PROAIR HFA, VENTOLIN HFA, or Given PROVENTIL HFA) inhaler 2 puff 2 puff, Inhalation, RT NEEDED, Starting 11/27/18 at 0236, Until Thu11/29/18 at 0653, RT PROTOCOL, When administered by RT, will be per RT policy., 2 puffs Given 11/27/2018 6:36 AM CDT 12/01/2018 5:39 AM CDT 2 puffs albuterol (PROAIR HFA, VENTOLIN HFA, or Given PROVENTIL HFA) inhaler 2 puff 2 puff, Inhalation, RT TWICE DAILY AND PRN, First dose on 11/29/18 at 1800, Until Discontinued, When administered by RT, will be per RT policy., 2 puffs Given 11/30/2018 5:47 PM CDT 2 puffs Given 11/30/2018 5:51 AM CDT 11/30/2018 9:31 AM CDT 300 mg allopurinol (ZYLOPRIM) tablet 300 mg Given 300 mg, Oral, DAILY, First dose on 11/27/18 at 0900, Until Discontinued 300 mg Given 11/29/2018 8:26 AM CDT 300 mg Given 11/28/2018 8:45 AM CDT 12/01/2018 5:39 AM CDT 2 puffs budesonide/formoterol (SYMBICORT HFA) Given 160/4.5 mcg inhalation 2 puff 2 puff, Inhalation, RT TWICE DAILY, First dose on Thu11/26/18 at 2200, Until Discontinued, When administered by RT, will be per RT policy., 2 puffs Given 11/30/2018 5:47 PM CDT 2 puffs Given 11/30/2018 5:51 AM CDT 11/29/2018 10:39 AM CDT 75 mcg fentaNYL citrate PF (SUBLIMAZE) Given injection 25-100 mcg 25-100 mcg, Intravenous, ONCE PRN, 1 dose, Starting Thu11/29/18 at 0921, Until Thu11/29/18 at 1039, Pain Injectable, Give for pain during bone marrow biopsy., 11/27/2018 6:38 AM CDT INHALATIONAL SPACING DEVICE MISC SPCR Given (Cabinet Override) NOW, 1 dose, Thu11/27/18 at 0645, Created by cabinet override, Created by cabinet override, 11/30/2018 11:07 AM CDT 750 mg levoFLOXacin (LEVAQUIN) tablet 750 mg Given 750 mg, Oral, EVERY 24 HOURS, First dose on Thu11/27/18 at 1100, Until Discontinued, NURSING: Please educate patient and document: Give 1 hour before or 2 hours after meals. If patient is receiving tube feedings, hold tube feedings 1 hour before and 2 hours after dose. Do not give within 2 hours of antacids, magnesium, calcium, iron, zinc, or vitamins containing these minerals., 750 mg Given 11/29/2018 10:16 AM CDT 750 mg Given 11/28/2018 11:31 AM CDT lidocaine (XYLOCAINE) 2 % jelly (URO-JET) Topical, NEEDED, Starting Thu11/30/18 at 1113, Until Thu12/01/18 at 1445, Pain non-opioid: may be used alone or in combination with opioid analgesia, apply to R hip near bone marrow biopsy sight for pain 11/30/2018 9:31 AM CDT 50 mg 100 mL/hr micafungin (MYCAMINE) 50 mg in sodium Given - New chloride 0.9% (NS) 100 mL IVPB (MB+) Bag 50 mg, Intravenous, 100 mL, Administer over 60 Minutes, at 100 mL/hr, DAILY, First dose on Thu11/27/18 at 0900, Until Discontinued, PROTECT FROM LIGHT, 50 mg 100 mL/hr Given - New Bag 11/29/2018 8:27 AM CDT 50 mg 100 mL/hr Given - New Bag 11/28/2018 8:46 AM CDT ondansetron (ZOFRAN) injection 4 mg 4 mg, Intravenous, EVERY 6 HOURS PRN, Starting Thu11/26/18 at 2014, Until Thu12/01/18 at 1445, Nausea/Vomiting Injectable ondansetron (ZOFRAN) tablet 4 mg 4 mg, Oral, EVERY 6 HOURS PRN, Starting Thu11/26/18 at 2014, Until Thu12/01/18 at 1445, Nausea/Vomiting PO 11/28/2018 8:45 AM CDT [address] (PROTONIX) tablet 20 mg Given 20 mg, Oral, TWICE DAILY, First dose on Thu11/26/18 at 2200, Until Discontinued, Do not crush or chew tablet., 20 mg Given 11/27/2018 8:09 PM CDT 20 mg Given 11/27/2018 10:29 AM CDT 12/01/2018 5:55 AM CDT [address] (PROTONIX) tablet 40 mg Given 40 mg, Oral, DAILY 30MIN BEFORE BREAKFAST, First dose on Thu11/29/18 at 0630, Until Discontinued, Do not crush or chew tablet., 40 mg Given 11/30/2018 6:05 AM CDT 40 mg Given 11/29/2018 6:46 AM CDT 11/26/2018 3:14 PM CDT 2 Diluted mL Arm, Left perflutren lipid microspheres (DEFINITY) Given injection 1-20 Diluted mL 1-20 Diluted mL, Intravenous, ONCE PRN, 1 dose, Starting Thu11/26/18 at 1458, Until Thu11/26/18 at 1514, For Procedure, A organization development consultant may only administer Definity through a saline lock. If IV is in use or a port, PICC, or central line is being used a nurse must administer. NOTE: This is a HIGH ALERT Medication., MAC Procedure Area Only - Medications 12/01/2018 8:24 AM CDT 17 g polyethylene glycol 3350 (MIRALAX) Given packet 17 g 17 g (1 packet), Oral, TWICE DAILY, First dose on Thu11/29/18 at 0900, Until Discontinued, 8.5 GRAMS=0.5 PACKET 17 GRAMS=1 PACKET 34 GRAMS=2 PACKETS, 17 g Given 11/30/2018 8:15 PM CDT 17 g Given 11/30/2018 9:31 AM CDT 11/30/2018 8:15 PM CDT 20 mg simvastatin (ZOCOR) tablet 20 mg Given 20 mg, Oral, AT BEDTIME DAILY, First dose on Thu11/26/18 at 2200, Until Discontinued, NURSING: Please educate patient and document: Avoid taking grapefruit juice., 20 mg Given 11/29/2018 8:10 PM CDT 20 mg Given 11/28/2018 8:04 PM CDT 11/26/2018 10:03 PM CDT 500 mL 100 mL/hr sodium chloride 0.9 % infusion Given - New 500 mL, 500 mL, Intravenous, at 100 Bag mL/hr, ONCE, 1 dose, Thu11/26/18 at 2045 11/29/2018 4:09 PM CDT 500 mL 75 mL/hr sodium chloride 0.9 % infusion Given - New 500 mL, 500 mL, Intravenous, at 75 Bag mL/hr, ONCE, 1 dose, Thu11/29/18 at 1400 11/30/2018 3:03 AM CDT 500 mL 75 mL/hr sodium chloride 0.9 % infusion Given - New 500 mL, 500 mL, Intravenous, at 75 Bag mL/hr, ONCE, 1 dose, Tu11/30/18 at 0245 11/30/2018 8:21 PM CDT 30 mg temazepam (RESTORIL) capsule 30 mg Given 30 mg, Oral, AT BEDTIME PRN, Starting Thu11/26/18 at 2014, Until Thu12/01/18 at 1445, Insomnia 30 mg Given 11/29/2018 8:10 PM CDT 30 mg Given 11/28/2018 8:04 PM CDT 12/01/2018 5:39 AM CDT 1 capsule tiotropium (SPIRIVA) capsule for inhaler Given 1 capsule 1 capsule, Inhalation, RT DAILY, First dose on Thu11/27/18 at 0600, Until Discontinued, When administered by RT, will be per RT policy. NOTES: Administer immediately after opening blister foil pouch. Each capsule is meant to deliver 2 inhalations (1 cap=2 inhalations)., 1 capsule Given 11/30/2018 5:51 AM CDT 1 capsule Given 11/29/2018 5:35 AM CDT 11/30/2018 3:32 AM CDT 25 mg traMADol (ULTRAM) tablet 25 mg Given 25 mg, Oral, ONCE, 1 dose, 11/30/18 at 0330 documented in this encounter
--- OUTSIDE RECORDS SUMMARY | 2019-01-01 09:22 | XMS REPORT | Continuity of Care Document ---
Author Organization Unknown Address Unknown Allergies Active Description Code Type Severity Reaction Onset Reported/Identified Relationship to Patient Clinical Status Yes BACTRIM BACTRIM MILD Yes BACTRIM MILD DERMATOLOGICAL - LEONARDA Yes SULFUR SEVERE OTHER Yes sulfamethoxazole [id number] Drug Allergy Unknown Hives 12/30/2018 Yes trimethoprim [id number] Drug Allergy Unknown Hives 12/30/2018 Medications Medication Packaging Start Date Stop Date [...] OR ABSCESS W/O BLEEDING 12/04/2016 Melquiades Lilly A 823.01 CLOSED FRACTURE OF UPPER END OF FIBULA 12/04/2016 Melquiades Lilly W 916.0 ABRASION OR FRICTION BURN OF HIP, [...] 401.9 UNSPECIFIED ESSENTIAL HYPERTENSION 11/16/2017 Aidan Caraballo I10 ESSENTIAL (PRIMARY) HYPERTENSION 11/16/2017 Aidan Caraballo 401.9 UNSPECIFIED ESSENTIAL HYPERTENSION 11/16/2017 Aidan Caraballo 784.0 HEADACHE 11/16/2017 Aidan Caraballo G44.1 VASCULAR HEADACHE, NOT ELSEWHERE CLASSIFIED 11/16/2017 Aidan Caraballo I10 ESSENTIAL (PRIMARY) HYPERTENSION 11/16/2017 Aidan Caraballo 401.9 UNSPECIFIED ESSENTIAL HYPERTENSION 11/16/2017 Aidan Caraballo 784.0 HEADACHE 11/16/2017 Aidan Caraballo G44.1 VASCULAR HEADACHE, NOT ELSEWHERE CLASSIFIED 11/16/2017 Aidan Caraballo I10 ESSENTIAL (PRIMARY) HYPERTENSION 11/18/2017 Aidan Caraballo 784.0 HEADACHE 11/18/2017 Aidan Caraballo G44.1 VASCULAR HEADACHE, NOT ELSEWHERE CLASSIFIED 11/18/2017 Aidan Caraballo W 784.0 HEADACHE 11/18/2017 Aidan Caraballo G44.1 VASCULAR HEADACHE, NOT ELSEWHERE CLASSIFIED 05/09/2018 ANGELO CRUMP 466.0 ACUTE BRONCHITIS 05/09/2018 ANGELO CRUMP J20.9 ACUTE BRONCHITIS, UNSPECIFIED 05/12/2018 Aidan Caraballo 462 ACUTE PHARYNGITIS 05/12/2018 Aidan Caraballo J02.9 ACUTE PHARYNGITIS, UNSPECIFIED 05/12/2018 Aidan Caraballo 462 ACUTE PHARYNGITIS 05/12/2018 Aidan Caraballo J02.9 ACUTE PHARYNGITIS, UNSPECIFIED 08/05/2018 Taylor Malloy W 008.8 INTESTINAL INFECTION DUE TO OTHER ORGANISM, NOT ELSEWHERE CLASSIFIED 08/05/2018 Taylor Malloy Omar W A08.4 VIRAL INTESTINAL INFECTION, UNSPECIFIED 12/17/2018 MAREN MUSE MD, Ot J44.9 CHRONIC OBSTRUCTIVE PULMONARY DISEASE, U 12/17/2018 MAREN MUSE MD Ot R06.02 SHORTNESS OF BREATH 12/17/2018 MAREN MUSE MD Ot Z85.118 PERSONAL HISTORY OF MALIGNANT NEOPLASM O 12/27/2018 MAREN MUSE MD, Ot J44.9 CHRONIC OBSTRUCTIVE PULMONARY DISEASE, U 12/27/2018 MAREN MUSE MD Ot R06.02 SHORTNESS OF BREATH 12/27/2018 MAREN MUSE MD Ot Z85.118 PERSONAL HISTORY OF MALIGNANT NEOPLASM O 12/30/2018 MAREN MUSE MD, Ot D46.9 MYELODYSPLASTIC SYNDROME, UNSPECIFIED 12/30/2018 MAREN MUSE MD Ot I06.0 RHEUMATIC AORTIC STENOSIS 12/30/2018 MAREN MUSE MD, Ot J44.9 CHRONIC OBSTRUCTIVE PULMONARY DISEASE, U 12/30/2018 MAREN MUSE MD Ot R06.02 SHORTNESS OF BREATH 12/30/2018 MAREN MUSE MD Ot R09.02 HYPOXEMIA 12/30/2018 MAREN MUSE MD Ot Z79.899 OTHER CLINICAL EXERCISE SPECIALIST (CURRENT) DRUG THERAPY 12/30/2018 MAREN MUSE MD Ot Z85.118 PERSONAL HISTORY OF MALIGNANT NEOPLASM O 12/30/2018 MAREN MUSE MD Ot Z87.891 PERSONAL HISTORY OF NICOTINE DEPENDENCE 12/30/2018 MAREN MUSE MD Ot Z92.21 PERSONAL HISTORY OF ANTINEOPLASTIC CHEMO 12/30/2018 CLARITZA MONTEIRO DO Ot Z01.818 ENCOUNTER FOR OTHER PREPROCEDURAL EXAMIN 12/31/2018 CLARITZA MONTEIRO DO Ot Z01.818 ENCOUNTER FOR OTHER PREPROCEDURAL EXAMIN Procedures There is no data. Results Test [...] 34.4 g/dL 32.0-36.0 MCV 94.0 fL 80.0-97.0 Forest% 10.8 % 0.0-12.0 MPV 8.4 fL 7.4-10.0 Missael% 65.4 % 37.0-80.0 Plt 217 K/uL 150-400 RBC 4.85 M/uL 4.20-5.40 RDW 12.9 % 11.6-14.8 WBC 9.31 K/uL 5.00-10.00 Missael 6.08 K/uL 2.00-6.90 Forest 1.0 K/uL 0.0-0.9 Baso 0.0 K/uL 0.0-0.2 [...] RESULTS Moderate Gram Positive Mixed Normal Lory [id number] Pathogen Isolated at 24 hours MEDIA PLATED [...] - 08/05/18 20:05 Lipase 16 U/L 7-59 PLATELET PHERESIS LR - 12/31/18 06:44 PLATELET PHERESIS LR PRSMD TRFSD 12/31/18 0809 NRG Encounters ACCT No. Visit Date/Time Discharge Status Pt. Type Provider Facility Loc./Unit Complaint [id number] 12/31/2018 06:23:00 12/31/2018 10:45:00 DIS Outpatient CLARITZA MONTEIRO DO [facility] SDC POOR VENOUS ACCESS [id number] 12/30/2018 11:37:00 12/30/2018 14:23:00 DIS Outpatient CLARITZA MONTEIRO DO [facility] PREOP POOR VENOUS ACCESS [id number] 12/15/2018 09:39:00 12/15/2018 23:59:59 CLS Outpatient MAREN MUSE MD [facility] RT COPD [id number] 03/08/2015 19:58:00 03/09/2015 06:25:00 DIS Outpatient EMMANUEL STROUD APRN [facility] SLEEP SNORING [id number] 12/30/2018 09:16:00 ACT Outpatient ALMAZ SAMEUL, MAREN [facility] ONC [id number] 03/08/2015 19:59:29 ACT Document Registration [id number] 08/05/2018 19:30:00 08/05/2018 21:36:00 DIS Outpatient Taylor Malloy [facility] ER [id number] 05/12/2018 11:13:00 05/12/2018 23:59:00 DIS Outpatient IlyaAidan [id number] 05/09/2018 09:41:00 05/09/2018 12:28:00 DIS Outpatient ANGELO CRUMP [id number] 03/04/2018 16:59:00 03/04/2018 23:59:00 DIS Outpatient Aidan Caraballo [id number] 11/18/2017 14:38:00 11/18/2017 23:59:00 DIS Outpatient Ilya Aidan [id number] 11/16/2017 09:16:00 11/16/2017 23:59:00 DIS Outpatient Aidan Caraballo [id number] 01/21/2017 08:48:00 01/21/2017 23:59:00 DIS Outpatient QUYNHKELLY [id number] 12/31/2016 09:13:00 12/31/2016 23:59:00 DIS Outpatient KELLY BEAUCHAMP [id number] 12/07/2016 08:40:00 12/07/2016 10:10:00 DIS Outpatient [facility] ER [id number] 12/04/2016 10:08:00 12/04/2016 11:35:00 DIS Outpatient [facility] ER [id number] 09/22/2016 11:22:00 09/22/2016 23:59:00 DIS Outpatient IlyaAidan [id number] 09/18/2016 07:00:00 09/18/2016 09:08:00 DIS Outpatient ALISIA [facility] ER [id number] 07/09/2016 08:48:00 07/09/2016 23:59:00 DIS Outpatient KELYL CRANE [id number] 09/18/2016 07:14:41 Document Registration [id number] 03/21/2016 12:32:00 Document Registration
--- OUTSIDE RECORDS SUMMARY | 2019-01-01 09:22 | XMS REPORT | Encounter Summary ---
Author Author [facility] Organization [facility] Address Unknown Phone Unavailable Care Team Providers Care Review Coordinator Name Role Phone Aidan Caraballo PCP Reason for Visit * Auth/Cert Referred By Contact Referred To Contact Status Reason Specialty Diagnoses / Procedures Diagnoses Pancytopenia (HCC) Encounter Details Care Team Description Date Type Department Hever Guillen MD [address] [facility] [place] [address] 11/26/2018 [facility] [address] [facility] Level [address] [place] [address] Social History Date Tobacco Use Types [...] impairment: Yes documented as of this encounter Medications at Time of Discharge [...] and inhale into lungs as directed daily. 12/01/2018 amLODIPine (NORVASC) 5 mg Take 5 mg by 0 tablet mouth daily. documented as of this encounter Plan of Treatment Not on filedocumented as of this encounter Procedures Comments Procedure Name Priority Date/Time Associated Diagnosis POC ED US CARDIAC LIMITED STAT 11/26/2018 12:37 PM CDT documented in this encounter Visit Diagnoses Not on filedocumented in this encounter
--- OUTSIDE RECORDS SUMMARY | 2019-01-01 09:22 | XMS REPORT | Encounter Summary ---
Author Author [facility] Organization [facility] Address Unknown Phone Unavailable Care Team Providers Care Floral Designer Name Role Phone Aidan Caraballo PCP Reason for Referral * Transplant (Routine) Referred By Contact Referred To Contact Status Reason Specialty Diagnoses / Procedures Rodrigo Gallegos DO [address] [place] [address] Cc-Ww Bmt Exm [address] Pending Review Specialty Services Oncology Diagnoses Required Acute myeloid leukemia not having achieved remission (HCC) Encounter Details Care Team Description Date Type Department Rodrigo Gallegos DO [address] [place] [address] 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) 11/29/2018 Orders Only [facility] [address] [phone] Social History Date Tobacco Use Types Packs/Day [...] Order Schedule Name Priority Associated Diagnoses Ordered: 11/29/2018 AMB REFERRAL TO BMT PRE-TRANSPLANT Routine Acute myeloid leukemia [employer]ING not having achieved remission (HCC) documented as of this encounter Visit Diagnoses Diagnosis Acute myeloid leukemia not having achieved remission (HCC) - Primary documented in this encounter
[2019-01-01] MEDS ORDERED: NS IV 1000 ML 1,000 ML IV ONE ×3 (09:23→10:29)
[2019-01-01] MEDS ORDERED: RT-ALBUTEROL/IPRATROPIUM 3 ML (DUONEB) VIAL INH ONE (09:30)
[2019-01-01] MEDS ORDERED: PIPERACILLIN/TAZOBACTAM (BULK) 4.5 GM in NS (IVPB) 100 ML IV ONE (09:30)
[2019-01-01 09:40] LABS: BASOPHILS % (AUTO) 2 % (0-10); EOSINOPHILS % (AUTO) 2 % (0-10); LYMPHOCYTES # (AUTO) 0.5 X 10^3 (1.0-4.0); LYMPHOCYTES % (AUTO) 30 % (12-44); MEAN CORPUSCULAR HEMOGLOBIN 34 PG (25-34); MEAN CORPUSCULAR HGB CONC 34 G/DL (32-36); MEAN CORPUSCULAR VOLUME 101 FL (80-99); MEAN PLATELET VOLUME 11.4 FL (7.4-10.4); MONOCYTES # (AUTO) 0.1 X 10^3 (0.0-1.0); MONOCYTES % (AUTO) 5 % (0-12); NEUTROPHILS % (AUTO) 61 % (42-75); PLATELET COUNT 41 10^3/uL (130-400); RED CELL DISTRIBUTION WIDTH 17.8 % (10.0-14.5); WHITE BLOOD COUNT 1.7 10^3/uL (4.3-11.0)
[2019-01-01 09:44] LABS: HEMATOCRIT 20 % (40-54); HEMOGLOBIN 6.6 G/DL (13.3-17.7)
[2019-01-01 09:53] LABS: BILIRUBIN,URINE NEGATIVE (NEGATIVE); CLARITY,URINE CLEAR; COLOR,URINE YELLOW; GLUCOSE, URINE (UA) NEGATIVE (NEGATIVE); KETONES,URINE NEGATIVE (NEGATIVE); LEUKOCYTE ESTERASE ,URINE NEGATIVE (NEGATIVE); NITRITE,URINE NEGATIVE (NEGATIVE); PH,URINE 5 (5-9); PROTEIN,URINE NEGATIVE (NEGATIVE); UROBILINOGEN,URINE NORMAL (NORMAL)
[2019-01-01 09:56] LABS: INR 1.2 (0.8-1.4); PROTHROMBIN TIME PATIENT 15.8 SEC (12.2-14.7)
[2019-01-01 10:00] LABS: BACTERIA,URINE NEGATIVE /HPF
[2019-01-01] MEDS ORDERED: ACETAMINOPHEN 500 MG TAB (TYLENOL) PO ONE (10:00)
--- NOTE | 2019-01-01 10:00 | NUR ---
See list for meds.
[2019-01-01 10:05] LABS: ALBUMIN 3.8 GM/DL (3.2-4.5); BILIRUBIN,TOTAL 1.3 MG/DL (0.1-1.0); CALCIUM 8.7 MG/DL (8.5-10.1); CREATININE SERUM 1.29 MG/DL (0.60-1.30); POTASSIUM 3.8 MMOL/L (3.6-5.0); TOTAL PROTEIN 6.2 GM/DL (6.4-8.2)
--- NOTE | 2019-01-01 10:39 | Diagnostic Imaging Report ---
EXAMINATION: Chest radiograph, portable AP view. DATE: January 01, 2019 at 1009 hours. INDICATION: 73-year-old male, port placement yesterday. Fever. COMPARISON: December 31, 2018. FINDINGS: There is a right-sided port catheter with tip overlying upper SVC. There is no identified pneumothorax. There is no large pleural effusion. There is no identified interval focal airspace consolidation. IMPRESSION: 1. Right-sided port catheter overlying the upper SVC. 2. No identified interval acute cardiopulmonary abnormality. Dictated by: Dictated on workstation # [id number]
--- NOTE | 2019-01-01 11:02 | NUR ---
Pt's temperature 102.[address] Flores notified.
--- NOTE | 2019-01-01 11:10 | ED General ---
General Chief Complaint: Fever-Adult/Adol Stated Complaint: SOA Nursing Triage Note: This nurse assisted pt into wheelchair from car. Pt reports having a port placed yesterday and then began running a fever last night. Pt reports fever of 100.5 to 102.7. Pt also c/o SOB. Pt pale and shivering. Pt report tylenol last taken at 0200. Nursing Sepsis Screen: Possible Sepsis Risk Source of Information: Patient, Family, Old Records Exam Limitations: No Limitations History of Present Illness Date Seen by Provider: January 01, 2019 Time Seen by Provider: 09:15 Initial Comments This 73-year-old gentleman presents to the emergency room with fever and chills that developed in the night. He also has shortness of breath. He has history of myelodysplastic syndrome and pancytopenia. He had a port placed yesterday by Dr. Marks. He also received a platelet transfusion yesterday. He is not presently receiving any form of chemotherapy or other oncology therapy. Dr. Zafar is his oncologist. He also has a history of lung cancer. Patient also notes some dysuria and difficulty urinating recently. Allergies and Home Medications Allergies Coded Allergies: sulfamethoxazole (Verified Allergy, Unknown, Hives, 12/30/18) trimethoprim (Verified Allergy, Unknown, Hives, 12/30/18) Home Medications Albuterol Sulfate 90 Mcg Aer.pow.ba, 1-2 PUFF IH QID PRN for SHORTNESS OF BREATH, (Reported) Fluconazole 150 Mg Tablet, 150 MG PO DAILY, (Reported) Levofloxacin 750 Mg Tablet, 750 MG PO DAILY, (Reported) Mometasone Furoate 13 Gm Hfa.aer.ad, 1 PUFF IH BID, (Reported) Omeprazole 20 Mg Tablet.dr, 20 MG PO BID, (Reported) Prednisone 5 Mg Tablet, 40 MG PO DAILY, (Reported) Simvastatin 20 Mg Tablet, 20 MG PO HS, (Reported) Temazepam 30 Mg Capsule, 30 MG PO HS, (Reported) Tiotropium Volga 4 Gm Mist.inhal, 2 PUFF IH DAILY, (Reported) Patient Home Medication List Home Medication List Reviewed: Yes Review of Systems Review of Systems Constitutional: see HPI EENTM: no symptoms reported Respiratory: see HPI Cardiovascular: other (tachycardia) Gastrointestinal: no symptoms reported Genitourinary: no symptoms reported Musculoskeletal: no symptoms reported Skin: no symptoms reported Psychiatric/Neurological: No Symptoms Reported Hematologic/Lymphatic: See HPI Immunological/Allergic: see HPI Past Xxromnm-Oiqdnl-Wjprny Hx Past Med/Social Hx: Reviewed and Corrections made Patient Social History Alcohol Use: Denies Use Recreational Drug Use: No Former Smoker, Quit: January 06, 2013 2nd Hand Smoke Exposure: No Recent Foreign Travel: No Contact w/Someone Who Travel: No Recent Infectious Disease Expo: No Recent Hopitalizations: No Immunizations Up To Date PED Vaccines UTD: No Date of Pneumonia Vaccine: December 30, 2016 Seasonal Allergies Seasonal Allergies: No Past Medical History Surgeries: Yes (R lower lobectomy, hemorrhoidectomy, port) Tonsillectomy Respiratory: Yes (lung cancer, wears oxygen ) COPD, Emphysema Cardiac: Yes (aortic valve stenosis) Hypertension Neurological: No Genitourinary: Yes (mild kidney disease) Gastrointestinal: No Musculoskeletal: No Endocrine: No HEENT: Yes Cataract Cancer: Yes (myelodysplastic syndrome) Lung Did You Recieve Any Treatments: Yes What Type of Treatment Did You: Chemotherapy, Surgical Intervention Psychosocial: No Integumentary: No Blood Disorders: Yes (anemia, recent blood transfusion) Physical Exam-Suspected Sepsis Physical Exam Vital Signs Vital Signs - First Documented 01/01/19 09:12 Temp 101.1 Pulse 138 Resp 22 B/P (MAP) 108/83 (91) Pulse Ox 100 O2 Delivery Nasal Cannula O2 Flow Rate 2.00 Capillary Refill : Less Than 3 Seconds Blood Pressure Mean: 91 Height, Weight, BMI Height: 6'0" Weight: 213lbs. 0.0oz. 96.857571jd; 28.9 BMI Method:Stated General Appearance: WD/WN, Mild Distress HEENT: PERRL/EOMI, Normal ENT Inspection, Pharynx Normal Neck: Normal Inspection Respiratory: No Accessory Muscle Use, No Respiratory Distress; No Crackles; Wheezing Cardiovascular: No Edema, No Murmur, Normal Peripheral Pulses, Tachycardia Gastrointestinal: Normal Bowel Sounds, Non Tender, Soft Extremity: Normal Inspection, No Pedal Edema Neurologic/Psychiatric: Alert, Oriented x3, No Motor/Sensory Deficits, Normal M ood/Affect, yarding engineer II-XII Norm as Tested Skin: warm/dry, pallor Focused Exam Sepsis Stage: Severe Sepsis Possible Source: Unknown Lactate Level 01/01/19 09:30: Lactic Acid Level 4.08*H Time of Focused Exam: 11:10 Respiratory: Lungs Clear, Normal Breath Sounds, No Accessory Muscle Use, No Respiratory Distress Cardiovascular: Normal Peripheral Pulses, Tachycardia Capillary Refill: Less Than 3 Seconds Skin: warm/dry, pallor Lactic Acid Level Laboratory Tests Test 01/01/19 09:30 Lactic Acid Level 4.08 MMOL/L (0.50-2.00) *H Within 3hrs of presentation: Admin fluids, Admin 30ml/kg IBW due to BMI>30, Admin ABX, Blood cultures prior to ABX's, Focus exam, Lactate level Progress/Results/Core Measures Suspected Sepsis Recent Fever Within 48 Hours: Yes Infection Criteria Present: Suspected New Infection New/Unexplained Altered Menta: No Sepsis Screen: Possible Sepsis Risk SIRS Temperature:101.1 Pulse: 138 Respiratory Rate: 22 Laboratory Tests 01/01/19 09:30: White Blood Count 1.7L Blood Pressure 108 /83 Mean: 91 01/01/19 09:30: Lactic Acid Level 4.08*H Laboratory Tests 01/01/19 09:30: Creatinine 1.29, INR Comment 1.2, Platelet Count 41L, Total Bilirubin 1.3H Results/Orders Lab Results Laboratory Tests Test 01/01/19 09:30 01/01/19 09:39 Range/Units White Blood Count 1.7 L 4.3-11.0 10^3/uL Red Blood Count 1.94 L 4.35-5.85 10^6/uL Hemoglobin 6.6 *L 13.3-17.7 G/DL Hematocrit 20 *L 40-54 % Mean Corpuscular Volume 101 H 80-99 FL Mean Corpuscular Hemoglobin 34 25-34 PG Mean Corpuscular Hemoglobin Concent 34 32-36 G/DL Red Cell Distribution Width 17.8 H 10.0-14.5 % Platelet Count 41 L 130-400 10^3/uL Mean Platelet Volume 11.4 H 7.4-10.4 FL Neutrophils (%) (Auto) 61 42-75 % Lymphocytes (%) (Auto) 30 12-44 % Monocytes (%) (Auto) 5 0-12 % Eosinophils (%) (Auto) 2 0-10 % Basophils (%) (Auto) 2 0-10 % Neutrophils # (Auto) 1.0 L 1.8-7.8 X 10^3 Lymphocytes # (Auto) 0.5 L 1.0-4.0 X 10^3 Monocytes # (Auto) 0.1 0.0-1.0 X 10^3 Eosinophils # (Auto) 0.0 0.0-0.3 10^3/uL Basophils # (Auto) 0.0 0.0-0.1 10^3/uL Prothrombin Time 15.8 H 12.2-14.7 SEC INR Comment 1.2 0.8-1.4 Activated Partial Thromboplast Time 35 24-35 SEC Sodium Level 135 135-145 MMOL/L Potassium Level 3.8 3.6-5.0 MMOL/L Chloride Level 103 98-107 MMOL/L Carbon Dioxide Level 16 L 21-32 MMOL/L Anion Gap 16 H 5-14 MMOL/L Blood Urea Nitrogen 25 H 7-18 MG/DL Creatinine 1.29 0.60-1.30 MG/DL Estimat Glomerular Filtration Rate 55 BUN/Creatinine Ratio 19 Glucose Level 84 70-105 MG/DL Lactic Acid Level 4.08 *H 0.50-2.00 MMOL/L Calcium Level 8.7 8.5-10.1 MG/DL Corrected Calcium 8.9 8.5-10.1 MG/DL Total Bilirubin 1.3 H 0.1-1.0 MG/DL Aspartate Amino Transf (AST/SGOT) 17 5-34 U/L Alanine Aminotransferase (ALT/SGPT) 24 0-55 U/L Alkaline Phosphatase 56 40-136 U/L Total Protein 6.2 L 6.4-8.2 GM/DL Albumin 3.8 3.2-4.5 GM/DL Urine Color YELLOW Urine Clarity CLEAR Urine pH 5 5-9 Urine Specific Volga 1.015 L 1.016-1.022 Urine Protein NEGATIVE NEGATIVE Urine Glucose (UA) NEGATIVE NEGATIVE Urine Ketones NEGATIVE NEGATIVE Urine Nitrite NEGATIVE NEGATIVE Urine Bilirubin NEGATIVE NEGATIVE Urine Urobilinogen NORMAL NORMAL MG/DL Urine Leukocyte Esterase NEGATIVE NEGATIVE Urine RBC (Auto) NEGATIVE NEGATIVE Urine RBC NONE /HPF Urine WBC NONE /HPF Urine Crystals NONE /LPF Urine Bacteria NEGATIVE /HPF Urine Casts NONE /LPF Urine Mucus NEGATIVE /LPF Urine Culture Indicated CULTURE PENDING Micro Results Microbiology 01/01/19 Influenza Types A,B Antigen (JIMMY) - Final, Complete My Orders Orders - CONOR BHAGAT MD Cbc With Automated Diff (01/01/19 09:20) Comprehensive Metabolic Panel (01/01/19 09:20) Blood Culture (01/01/19 09:20) Sputum Culture (01/01/19:20) Urinalysis (01/01/19:20) Urine Culture (01/01/19 09:20) Protime With Inr (01/01/19 09:20) Partial Thromboplastin Time (01/01/19 09:20) Chest 1 View, Ap/Pa Only (01/01/19:20) Ed Iv/Invasive Line Start (01/01/19 09:20) Ed Iv/Invasive Line Start (01/01/19 09:20) Vital Signs Adult Sepsis Patie Q15M (01/01/19:20) O2 (01/01/19:20) Remove Rings In Anticipation O (01/01/19:20) Lactic Acid Analyzer (01/01/19 09:20) Influenza A And B Antigens (01/01/19 09:20) Albuterol/Ipra Inhalation Soln (Duoneb I (01/01/19 09:30) Svn Small Volume Nebulizer (01/01/19 09:20) Ns Iv 1000 Ml (Sodium Chloride 0.9%) (01/01/19 09:23) Bladder Scan (01/01/19 09:23) Piperacillin/Tazobactam (Bulk) (Zosyn In (01/01/19 09:30) Red Cells Leukocytes Reduced (01/01/19 09:47) Type And Screen (01/01/19 09:47) Acetaminophen Tablet (Tylenol Tablet) (01/01/19 10:00) Red Cells Leukocytes Reduced (01/01/19 09:56) Ns Iv 1000 Ml (Sodium Chloride 0.9%) (01/01/19 10:29) Ns Iv 1000 Ml (Sodium Chloride 0.9%) (01/01/19 10:29) Medications Given in ED Current Medications Medications Dose Ordered Sig/Laurie Route Start Time Stop Time Status Last Admin Dose Admin Acetaminophen 1,000 mg ONCE ONCE PO 01/01/19 10:00 01/01/19 10:01 DC 01/01/19 10:10 1,000 MG Albuterol/ Ipratropium 3 ml ONCE ONCE INH 01/01/19 09:30 01/01/19 09:31 DC 01/01/19 09:41 3 ML Piperacillin Sod/ Tazobactam Sod 4.5 gm/Sodium Chloride 120 ml @ 240 mls/hr ONCE ONCE IV 01/01/19 09:30 01/01/19 09:59 DC 01/01/19 10:32 240 MLS/HR Sodium Chloride 1,000 ml @ 0 mls/hr Q0M ONCE IV 01/01/19 09:23 01/01/19 09:25 DC 01/01/19 09:30 1,000 MLS/HR Sodium Chloride 1,000 ml @ 0 mls/hr Q0M ONCE IV 01/01/19 10:29 01/01/19 10:30 DC 01/01/19 10:38 1,000 MLS/HR Vital Signs/I&O 01/01/19 09:12 Temp 101.1 Pulse 138 Resp 22 B/P (MAP) 108/83 (91) Pulse Ox 100 O2 Delivery Nasal Cannula O2 Flow Rate 2.00 Capillary Refill : Less Than 3 Seconds Blood Pressure Mean: 91 Progress Note : Time: 11:14 Progress Note Patient was seen and examined promptly after arrival. Septic workup was pursued. Influenza screen was negative. No source of infection was identified. Source of infection may be idiopathic or related to yesterday's surgery. IV antibiotics were initiated with Zosyn. Patient has significant pancytopenia. A unit of packed red blood cells was ordered to give and one unit was ordered to hold. 30 ML per kilogram fluid bolus was also initiated. Focused exam was performed. I discussed CODE STATUS with the patient. He wishes to be full code at this time but does not want extensive life-prolonging measures taken if he does not improve after a short time on life support. Case was discussed with Dr. Hull. Dr. Zafar and Dr. Alfred were consulted. Port use was discussed with Dr. Marks before it was accessed. Patient received a DuoNeb treatment which improved his shortness of breath. ECG Initial ECG Impression Date: January 01, 2019 Initial ECG Impression Time: 09:20 Initial ECG Rate: 121 Initial ECG Rhythm: S.Tach Initial ECG Intervals: Normal Comment Sinus tachycardia with no ST elevation or depression. No abnormal intervals or axis deviation. Diagnostic Imaging Diagonstic Imaging: Xray Plain Films/CT/US/NM/MRI: chest Comments Chest x-ray viewed by me and report reviewed. See report below: NAME: KELLY BERMEO [facility] REC#: [id number] PT STATUS: REG ER : 1945 PHYSICIAN: CONOR BHAGAT MD ADMIT DATE: 01/01/19/ER Draft Date of Exam:01/01/19 CHEST 1 VIEW, AP/PA ONLY EXAMINATION: Chest radiograph, portable AP view. DATE: January 01, 2019 at 1009 hours. INDICATION: 73-year-old male, port placement yesterday. Fever. COMPARISON: December 31, 2018. FINDINGS: There is a right-sided port catheter with tip overlying upper SVC. There is no identified pneumothorax. There is no large pleural effusion. There is no identified interval focal airspace consolidation. IMPRESSION: 1. Right-sided port catheter overlying the upper SVC. 2. No identified interval acute cardiopulmonary abnormality. Dictated on workstation # [id number] Dict: 01/01/19 1032 Trans: 01/01/19 1039 CV [id number] Interpreted by: TERRY VALIENTE MD Departure Communication (Admissions) Time/Spoke to Admitting Phy: 10:30 Dr. Della Alfred at 11:00 Dr. Zafar at 10:55 Impression Primary Impression: Severe sepsis Additional Impressions: Myelodysplastic syndrome Pancytopenia COPD exacerbation Disposition: ADMITTED INPATIENT Condition: Improved Admissions Decision to Admit Reason: Admit from ER (General) Decision to Admit/Date: January 01, 2019 Time/Decision to Admit Time: 09:15 Departure-Patient Inst. Referrals: EZRA MERAZ DO (PCP/Family) Primary Care Physician CONOR BHAGAT MD January 01, 2019 11:10
[2019-01-01] MEDS: NOREPINEPHRINE 4 MG in NS (IVPB) 250 ML IV SCH ×2 (11:32→22:44)
--- NOTE | 2019-01-01 12:00 | NUR ---
Pt's low BP of 68/58 due to contracture of arm at this time. Arm and cuff repositioned and BP now 91/54.
[2019-01-01] MEDS ORDERED: ONDANSETRON 4 MG/2 ML (SDV) Z0FRAN IV PRN (12:45)
[2019-01-01] MEDS ORDERED: VANCOMYCIN 2000 MG/NS 500 ML IVPB IV NR ×2 (12:48)
--- NOTE | 2019-01-01 12:53 | NUR ---
vANCOMYCIN - Loading dose of 2gm x 1, then 1250mg every 12 hours.
[2019-01-01] MEDS ORDERED: RT-ALBUTEROL SULF 2.5 MG/3 ML PRE-MIX VIAL INH PRN (13:30)
--- NOTE | 2019-01-01 13:38 | History & Physical-Hospitalist ---
History of Present Illness HPI/Chief Complaint The patient is a 73-year-old white male who had undergone port placement yesterday per Dr. 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 It was done as an outpatient he felt well upon discharge from surgery Center but well eating evening meal around 6 he developed chills and fever describing Reiger's. He denied cough chest congestion dysuria or increased frequency abdominal pain diarrhea or any change in bowel habit. He felt short of breath with the onset of his Reiger's he got progressively worse overnight with confusion and presented to the emergency room with hypotension and tachycardia. Blood cultures were obtained peripherally as well as through the port and he was started on Zosyn and vancomycin. He reports roughly 10 days ago he was started on prednisone per his oncologist initially 60 mg he was told not to take his dose yesterday the day of the surgery and is been without it for the past 48 hours. He was recently started on Levaquin and Diflucan presumably due to very low ANC counts and received platelets yesterday prior to his surgery. It appears that he typically gets blood transfusions when he gets down into the 6 range when he is more symptomatic they weren't sure what platelet count when he is not bleeding that he has been getting platelet transfusions 4. Patient reports past history of right lower lobectomy for non- small cell lung cancer he completed adjuvant chemotherapy in 2012 and there's been no reported evidence for recurrence thus far. Date Seen 01/01/19 Time Seen by a Provider: 13:37 Attending Physician Derek Hull MD PCP Aidan Caraballo DO Referring Physician Date of Admission January 01, 2019 at 11:02 Home Medications & Allergies Home Medications Reviewed patient Home Medication Reconciliation performed by pharmacy medication reconciliations phlebotomy technician and/or nursing. Patients Allergies have been reviewed. Allergies Allergies Coded Allergies sulfamethoxazole (Verified Allergy, Unknown, Hives, 12/30/18) trimethoprim (Verified Allergy, Unknown, Hives, 12/30/18) Past Hqwypjp-Avhiew-Sbpvrk Hx Past Med/Social Hx: Reviewed and Corrections made Patient Social History Alcohol Use: Denies Use Recreational Drug Use: No Former Smoker, Quit: January 06, 2013 2nd Hand Smoke Exposure: No Recent Foreign Travel: No Contact w/other who traveled: No Recent Hopitalizations: No Recent Infectious Disease Expo: No Immunizations Up To Date Pediatric: No Date of Pneumonia Vaccine: December 30, 2016 Seasonal Allergies Seasonal Allergies: No Past Medical History Surgeries: Tonsillectomy Cardiac: Hypertension HEENT: Cataract Cancer: Lung Did You Recieve Any Treatments: Yes What Type of Treatment Did You: Chemotherapy, Surgical Intervention History of Blood Disorders: Yes (anemia, recent blood transfusion) Review of Systems Constitutional: no symptoms reported, chills, diaphoresis, fever, weakness Respiratory: No cough, No dyspnea on exertion, No hemoptysis, No orthopnea, No phlegm; short of breath; No stridor, No wheezing, No other Cardiovascular: No chest pain, No edema, No Hx of Intervention, No palpitations, No syncope, No vascular heart diseas, No other Genitourinary: No no symptoms reported; see HPI; No decreased output, No discharge, No dysuria, No frequency, No hematuria, No hesitancy, No incontinence, No nocturia, No pain, No other Skin: no symptoms reported Physical Exam Physical Exam Vital Signs Vital Signs - First Documented 01/01/19 09:12 Temp 101.1 Pulse 138 Resp 22 B/P (MAP) 108/83 (91) Pulse Ox 100 O2 Delivery Nasal Cannula O2 Flow Rate 2.00 Capillary Refill : Less Than 3 Seconds Height, Weight, BMI Height: 6'0" Weight: 213lbs. 0.0oz. 96.952946zz; 28.9 BMI Method:Stated General Appearance: Anxious, Chronically ill, Mild Distress HEENT: Pharynx Normal Neck: Full Range of Motion, Normal Inspection, Non Tender Respiratory: Chest Non Tender, Lungs Clear, Normal Breath Sounds, No Accessory Muscle Use, No Respiratory Distress Cardiovascular: Regular Rate, Rhythm, No Edema, No Gallop, No JVD, No Murmur, Normal Peripheral Pulses Gastrointestinal: Normal Bowel Sounds, No Organomegaly, No Pulsatile Mass, Non Tender, Soft Extremity: Normal Capillary Refill, Normal Inspection, Normal Range of Motion, Non Tender, No Calf Tenderness, No Pedal Edema Neurologic/Psychiatric: Alert, Oriented x3, No Motor/Sensory Deficits Skin: Warm/Dry, Pallor Lymphatic: No Adenopathy Results Results/Procedures Labs Laboratory Tests 01/01/19 09:30 Patient resulted labs reviewed. Assessment/Plan Admission Diagnosis 1. Severe sepsis with hypotensive shock requiring pressor support. Patient is doing better currently but prognosis is poor. This was discussed with family members. Considering pancytopenia we'll continue Zosyn and vancomycin and will add IV Diflucan. Dr. Zafar has been consulted and will defer to her for transfusion therapy. 2. The patient has been on rather high-dose oral steroids for at least 10 days for his report will add hydrocortisone stress dose for now as there may be a component of adrenal insufficiency will add a random cortisol level. 3. 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 Admission Status: Inpatient Order (span 2 midnights) Reason for Inpatient Admission: See number 1 Critical Care Critically Ill Patient DEREK HULL MD January 01, 2019 13:38
[2019-01-01] MEDS: NS IV 1000 ML 1,000 ML IV SCH ×2 (13:45→22:44)
[2019-01-01] MEDS ORDERED: HYDROCORTISONE 100 MG/2 ML (Solu-CORTEF) VIAL IV SCH (14:00)
[2019-01-01] MEDS: ACETAMINOPHEN 500 MG TAB (TYLENOL) PO PRN (15:01)
[2019-01-01] MEDS: HYDROCORTISONE 100 MG/2 ML (Solu-CORTEF) VIAL IV SCH ×2 (15:03→19:37)
[2019-01-01] MEDS: FLUCONAZOLE 200 MG/100 ML 100 ML IV SCH (16:16)
[2019-01-01] MEDS: PIPERACILLIN/TAZOBACTAM (BULK) 4.5 GM in NS (IVPB) 100 ML IV SCH (16:53)
--- NOTE | 2019-01-01 18:41 | Oncology Consultation ---
Visit Information Visit Information Date of Admission January 01, 2019 at 11:02 Attending Physician Juancarlos Hull MD Admitting Physician Aidan Caraballo DO Chief Complaint Sepsis, MDS, pancytopenia Interval History Mr. Yost is a 73 year old white man known to me for the management of MDS pancytopenia and h/o non-small cell lung cancer. He had a port placement yesterday with Plt transfusion support before the procedure. He did well during and after the procedure and was discharged home. He then developed fever, rigors and nearly pass out. He was brought to the ER and was found hypotensive. CXR negative, UA negative for infection. He needed fluid and pressor support and was admitted to ICU. 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 He hold the dose of the Prednisone on the day of procedure. Pertinent PMH 1. MDS, pancytopenia, 7% blasts in the bone marrow, NOT in AML 11/29/18. 2. Mod-severe aortic stenosis, ? candidate for surgical repair/correction 3. h/o RLL non-small cell lung cancer, s/p surgical resection and chemotherapy cisplatin and gemcitabine 2012. Most CT scan of chest and abdomen 11/26/2018 showed NO recurrence of disease. 4. Severe SOB and hypoxia with minimal exertion O2 saturation drop from 95% sitting to 87% standing and 82% walking a few steps and near syncope. This is mostly likely related to his aortic stenosis, rather than anemia. 5. 80 pack year of smoking, stopped 2012 when he as diagnosed with lung cancer 6. h/o CAD but recent cardiac cath 10/2018 did not show any blockage or active lesion. I consulted the patient on: 01/01/19 18:32 Time Seen by Provider: 17:40 Review of Systems Constitutional: fever, weakness EENTM: see HPI Respiratory: dyspnea on exertion, short of breath Cardiovascular: palpitations Genitourinary: no symptoms reported Musculoskeletal: no symptoms reported Skin: no symptoms reported Health Status Allergies Coded Allergies: sulfamethoxazole (Verified Allergy, Unknown, Hives, 12/30/18) trimethoprim (Verified Allergy, Unknown, Hives, 12/30/18) Home Medications Albuterol Sulfate (Proair Respiclick) 90 Mcg Aer.pow.ba, 1-2 PUFF IH QID PRN for SHORTNESS OF BREATH, (Reported) Fluconazole (Fluconazole) 150 Mg Tablet, 150 MG PO DAILY, (Reported) Levofloxacin (Levofloxacin) 750 Mg Tablet, 750 MG PO DAILY, (Reported) Mometasone Furoate (Asmanex Hfa) 13 Gm Hfa.aer.ad, 1 PUFF IH BID, (Reported) Omeprazole (Omeprazole) 20 Mg Tablet.dr, 20 MG PO BID, (Reported) Prednisone (Prednisone) 5 Mg Tablet, 40 MG PO DAILY, (Reported) Simvastatin (Simvastatin) 20 Mg Tablet, 20 MG PO HS, (Reported) Temazepam (Temazepam) 30 Mg Capsule, 30 MG PO HS, (Reported) Tiotropium [place] (Spiriva Respimat 2.5MCG/ACTUATION) 4 Gm Mist.inhal, 2 PUFF IH DAILY, (Reported) VEP-Qpriiz-Tmgnyt Hx Patient Social History Alcohol Use: Denies Use Recreational Drug Use: No 2nd Hand Smoke Exposure: No Recent Foreign Travel: No Contact w/other who traveled: No Recent Infectious Disease Expo: No Recent Hopitalizations: No Immunizations Up To Date Date of Pneumonia Vaccine: December 30, 2016 Physical Exam Vital Signs Vital Signs - First Documented 01/01/19 01/01/19 09:12 13:28 Temp 101.1 Pulse 138 Resp 22 B/P (MAP) 108/83 (91) Pulse Ox 100 O2 Delivery Nasal Cannula O2 Flow Rate 2.00 FiO2 28 Capillary Refill : Less Than 3 SecondsLess Than 3 Seconds Height, Weight, BMI Height: 6'0.00" Weight: 217lbs. 0.0oz. 98.313736rh; 29.4 BMI Method:Stated General Appearance: Mild Distress HEENT: PERRL/EOMI Neck: Non Tender, Supple Respiratory: Lungs Clear, No Accessory Muscle Use, No Respiratory Distress Cardiovascular: Regular Rate, Rhythm, No Edema, No JVD Extremity: Non Tender, No Calf Tenderness, No Pedal Edema Neurologic/Psychiatric: Alert, Oriented x3 Data Review Labs Laboratory Tests 01/02/19 02:51 01/02/19 12:00 Laboratory Tests 01/01/19 09:30: White Blood Count 1.7L, Red Blood Count 1.94L, Hemoglobin 6.6*L, Hematocrit 20*L , Mean Corpuscular Volume 101H, Red Cell Distribution Width 17.8H, Platelet Count 41L, Mean Platelet Volume 11.4H, Neutrophils # (Auto) 1.0L, Lymphocytes # (Auto) 0.5L, Prothrombin Time 15.8H, Carbon Dioxide Level 16L, Anion Gap 16H, Blood Urea Nitrogen 25H, Lactic Acid Level 4.08*H, Total Bilirubin 1.3H, Total Protein 6.2L 01/01/19 09:39: Urine Specific [place] 1.015L 01/01/19 11:14: Lactic Acid Level 2.20*H 01/02/19 02:51: White Blood Count 1.8L, Red Blood Count 1.79L, Hemoglobin 5.9*L, Hematocrit 17*L , Red Cell Distribution Width 19.1H, Platelet Count 22*L, Neutrophils # (Auto) 1.4L, Lymphocytes # (Auto) 0.2L, Carbon Dioxide Level 16L, Blood Urea Nitrogen 20H, Total Protein 4.8L, Neutrophils (%) (Auto) 81H, Potassium Level 3.3L, Chloride Level 112H, Glucose Level 181H, Calcium Level 7.7L, Aspartate Amino Transf (AST/SGOT) 36H, Albumin 3.0L 01/02/19 12:00: Hemoglobin 7.3#L, Hematocrit 21L Impression & Plan Impression & Plan 1. Fever, sepsis,? etiology. Blood culture pending. Required pressor support. Pt is better now and in the processing of weaning off the pressor since the IV antibiotics and IV steroid treatment. Port placement yesterday. 2. MDS, pancytopenia, 7% blasts in the bone marrow, NOT in AML 11/29/18 bone marrow exam at [facility]. 3. Mod-severe aortic stenosis, ? candidate for surgical repair/correction. Pt had cardiac and thoracic surgery evaluation 12/28/18. He will have more tests including JANETT on 01/10/19 to decide if he does have a critical stenosis and would be benefit from the surgical repair. 4. h/o RLL non-small cell lung cancer, s/p surgical resection and chemotherapy cisplatin and gemcitabine 2012. Most recent CT scan of chest and abdomen 11/26/2018 showed NO recurrence of disease. 5. Severe SOB and hypoxia with minimal exertion O2 saturation drop from 95% sitting to 87% standing and 82% walking a few steps and near syncope. This is mostly likely related to his aortic stenosis, rather than anemia. 6. 80 pack year of smoking, stopped 2012 when he as diagnosed with lung cancer 7. h/o CAD but recent cardiac cath 10/2018 did not show any blockage or active lesion. Plan: 1. Agree with your current IV Zosyn and Vanco as well as Diflucan. Please give the antibiotics through the port for 3 days in hope to save the port. If the patient continues to spike the fever and clinically no improvement for 72 hrs, we will have to remove the port. 2. Transfuse support to keep the Hb above 8. Transfuse Plt if the number below 20k or actively bleeding regardless the number. 3. Agree stress dose of steroid then followed by Prednisone 40/day for least 3 more days, then decide if taper down the steroid. 4. When he discharge home, he needs to be on prophylactic antibiotics today due to low WBC and ANC, Levaquin 750mg daily and Diflucan 150mg daily. He is allergica to Bactrim. 5. Thank you for the consultation. I will follow up with you. MAREN MUSE MD January 01, 2019 18:41
[2019-01-01] MEDS: RT-ALBUTEROL SULF 2.5 MG/3 ML PRE-MIX VIAL INH SCH (19:42)
[2019-01-02] VITALS (31 sets, daily range): BP systolic 82–140; BP diastolic 49–85
[2019-01-02] MEDS: PIPERACILLIN/TAZOBACTAM (BULK) 4.5 GM in NS (IVPB) 100 ML IV SCH ×3 (01:41→16:43)
[2019-01-02 02:57] LABS: BASOPHILS % (AUTO) 2 % (0-10); EOSINOPHILS % (AUTO) 1 % (0-10); LYMPHOCYTES # (AUTO) 0.2 X 10^3 (1.0-4.0); LYMPHOCYTES % (AUTO) 13 % (12-44); MEAN CORPUSCULAR HEMOGLOBIN 33 PG (25-34); MEAN CORPUSCULAR HGB CONC 35 G/DL (32-36); MEAN CORPUSCULAR VOLUME 96 FL (80-99); MONOCYTES # (AUTO) 0.1 X 10^3 (0.0-1.0); MONOCYTES % (AUTO) 3 % (0-12); NEUTROPHILS # (AUTO) 1.4 X 10^3 (1.8-7.8); NEUTROPHILS % (AUTO) 81 % (42-75); RED CELL DISTRIBUTION WIDTH 19.1 % (10.0-14.5); WHITE BLOOD COUNT 1.8 10^3/uL (4.3-11.0)
[2019-01-02 03:00] LABS: HEMATOCRIT 17 % (40-54); HEMOGLOBIN 5.9 G/DL (13.3-17.7); PLATELET COUNT 22 10^3/uL (130-400)
[2019-01-02 03:18] LABS: ALANINE AMINOTRANSFERASE 45 U/L (0-55); ALKALINE PHOSPHATASE 45 U/L (40-136); BILIRUBIN,TOTAL 0.9 MG/DL (0.1-1.0); BUN/CREATININE RATIO 17; CALCIUM 7.7 MG/DL (8.5-10.1); CARBON DIOXIDE 16 MMOL/L (21-32); CHLORIDE 112 MMOL/L (98-107); CREATININE SERUM 1.17 MG/DL (0.60-1.30); GFR ESTIMATED > 60; GLUCOSE 181 MG/DL (70-105); PHOSPHORUS 3.8 MG/DL (2.3-4.7); POTASSIUM 3.3 MMOL/L (3.6-5.0); SODIUM 137 MMOL/L (135-145); TOTAL PROTEIN 4.8 GM/DL (6.4-8.2)
[2019-01-02] MEDS: VANCOMYCIN 1250 MG/NS 250 ML IVPB IV SCH ×4 (03:42→13:56)
[2019-01-02] MEDS: HYDROCORTISONE 100 MG/2 ML (Solu-CORTEF) VIAL IV SCH ×4 (03:42→20:25)
[2019-01-02] MEDS: NS IV 1000 ML 1,000 ML IV SCH ×5 (05:01→23:50)
[2019-01-02] MEDS ORDERED: KCL 20 MEQ TAB (K-DUR) PO ONE (05:15)
--- NOTE | 2019-01-02 05:55 | Pulmonary Consultation ---
History of Present Illness History of Present Illness Date of Consultation 01/02/19 05:50 Time Seen by Provider: 05:50 Date of Admission History of Present Illness 73yo with hx of nonsmall cell lung cancer s/p lobectomy/chemo 2012, and myelodysplastic syndrome dx 09/28 presented to ED secondary worsening SOB, reigers, and confusion. He was found to have sepsis with hypotension in the ED. Dr. Marks recently placed Mediport. No productive cough, abdominal pain. PT was started on Abx, IVF and admitted to ICU for close observation. I am consulted for pulmonary/ICU management. Allergies and Home Medications Allergies Coded Allergies: sulfamethoxazole (Verified Allergy, Unknown, Hives, 12/30/18) trimethoprim (Verified Allergy, Unknown, Hives, 12/30/18) Home Medications Albuterol Sulfate 90 Mcg Aer.pow.ba, 1-2 PUFF IH QID PRN for SHORTNESS OF BREATH, (Reported) Fluconazole 150 Mg Tablet, 150 MG PO DAILY, (Reported) Levofloxacin 750 Mg Tablet, 750 MG PO DAILY, (Reported) Mometasone Furoate 13 Gm Hfa.aer.ad, 1 PUFF IH BID, (Reported) Omeprazole 20 Mg Tablet.dr, 20 MG PO BID, (Reported) Prednisone 5 Mg Tablet, 40 MG PO DAILY, (Reported) Simvastatin 20 Mg Tablet, 20 MG PO HS, (Reported) Temazepam 30 Mg Capsule, 30 MG PO HS, (Reported) Tiotropium [place] 4 Gm Mist.inhal, 2 PUFF IH DAILY, (Reported) Past Xtutint-Ojwnmw-Ugjtlr Hx Past Med/Social Hx: Reviewed and Corrections made Patient Social History Alcohol Use: Denies Use Recreational Drug Use: No Former Smoker, Quit: January 06, 2013 2nd Hand Smoke Exposure: No Recent Foreign Travel: No Contact w/Someone Who Travel: No Recent Infectious Disease Expo: No Recent Hopitalizations: No Immunizations Up To Date PED Vaccines UTD: No Date of Pneumonia Vaccine: December 30, 2016 Seasonal Allergies Seasonal Allergies: No Past Medical History Surgeries: Yes (R lower lobectomy, hemorrhoidectomy, port) Tonsillectomy Respiratory: Yes (lung cancer, wears oxygen ) COPD, Emphysema Cardiac: Yes (aortic valve stenosis) Hypertension Neurological: No Genitourinary: Yes (mild kidney disease) Gastrointestinal: No Musculoskeletal: No Endocrine: No HEENT: Yes Cataract Cancer: Yes (myelodysplastic syndrome) Lung Did You Recieve Any Treatments: Yes What Type of Treatment Did You: Chemotherapy, Surgical Intervention Psychosocial: No Integumentary: No Blood Disorders: Yes (anemia, recent blood transfusion) Review of Systems Time Seen by Provider: 07:26 Constitutional: Fever, Chills, Sweats, Weakness, Malaise, Other Eyes: No: Pain, Vision change, Conjunctivae inflammation, Eyelid inflammation, Other, Redness ENT: Nose congestion; No: Ear pain, Ear discharge, Nose pain, Nose discharge, Mouth pain, Mouth swelling, Throat pain, Throat swelling, Other Respiratory: Cough, Dry, Shortness of breath, SOB with excertion; No: Hemoptysis, Pleuritic Pain Cardiovascular: Palpitations Gastrointestinal: Constipation; No: Nausea, Vomiting, Abdominal Pain, Diarrhea, Melena, Hematochezia, Other Neurological: Weakness Sepsis Event Evaluation Height, Weight, BMI Height: 6'0.00" Weight: 217lbs. 0.0oz. 98.424066gd; 29.4 BMI Method:Stated Exam Exam Vital Signs Date Time Temp Pulse Resp B/P (MAP) Pulse Ox O2 Delivery O2 Flow Rate FiO2 01/02/19 05:11 97.1 73 21 96/60 100 Nasal Cannula 2.00 01/02/19 04:56 97.5 75 14 95/61 97 Nasal Cannula 2.00 01/02/19 04:00 100 Nasal Cannula 2.00 01/02/19 04:00 97.8 01/02/19 04:00 68 16 123/72 (89) 100 Nasal Cannula 2.00 01/02/19 03:00 70 18 117/67 (84) 99 Nasal Cannula 2.00 01/02/19 02:00 69 19 98/68 (78) 98 Nasal Cannula 2.00 01/02/19 01:00 86 27 140/80 (100) 99 Nasal Cannula 2.00 01/02/19 01:00 71 01/02/19 00:00 82 23 119/60 (79) 97 Nasal Cannula 2.00 01/02/19 00:00 100 Nasal Cannula 2.00 01/01/19 23:00 84 22 130/60 (83) 98 Nasal Cannula 2.00 01/01/19 22:10 98.7 71 23 85/52 100 Nasal Cannula 2.00 01/01/19 22:00 72 20 91/57 (68) 98 Nasal Cannula 2.00 01/01/19 21:00 81 12 88/61 (70) 100 Nasal Cannula 2.00 01/01/19 20:26 97.4 85 23 83/53 98 Nasal Cannula 2.00 01/01/19 20:24 97.4 85 16 83/53 99 Nasal Cannula 2.00 01/01/19 20:18 100 Nasal Cannula 2.00 01/01/19 20:11 97.9 85 11 86/54 99 Room Air 01/01/19 20:00 81 20 86/58 (67) 99 Nasal Cannula 2.00 01/01/19 20:00 97.8 01/01/19 19:42 100 Nasal Cannula 2.00 01/01/19 19:10 70 01/01/19 19:00 80 17 87/58 (68) 99 Nasal Cannula 2.00 01/01/19 18:00 95 29 87/33 (51) 99 Nasal Cannula 2.00 01/01/19 17:00 83 15 115/64 (81) 100 Nasal Cannula 2.00 01/01/19 16:00 102.0 81 20 106/64 (78) 100 Nasal Cannula 2.00 01/01/19 16:00 100 Nasal Cannula 2.00 01/01/19 15:31 99.3 01/01/19 15:01 101.2 01/01/19 15:00 101.2 99 26 107/75 (86) 100 Nasal Cannula 2.00 01/01/19 14:00 83 22 105/62 (76) 100 Nasal Cannula 2.00 01/01/19 13:30 101.0 87 19 101/58 (72) 100 Nasal Cannula 2.00 01/01/19 13:28 95 100 28 01/01/19 13:15 101.1 87 13 89/56 (67) 100 Nasal Cannula 2.00 01/01/19 13:00 95 01/01/19 13:00 101.0 95 20 102/60 (74) 100 Nasal Cannula 100.00 2.00 01/01/19 13:00 95 20 102/60 (74) 100 Nasal Cannula 2.00 01/01/19 12:45 100 Nasal Cannula 2.00 01/01/19 12:45 101.0 102 21 110/64 (79) Nasal Cannula 100.00 2.00 01/01/19 12:20 102.2 96 18 104/58 (73) 96 Nasal Cannula 2.00 01/01/19 09:12 101.1 138 22 108/83 (91) 100 Nasal Cannula 2.00 I & O 01/02/19 07:00 Intake Total 4440 ml Output Total 2100 ml Balance 2340 ml Height & Weight Height: 6'0.00" Weight: 217lbs. 0.0oz. 98.736731zt; 29.4 BMI Method:Stated General Appearance: Mild Distress HEENT: PERRL/EOMI Neck: Non Tender, Supple Respiratory: Lungs Clear, No Accessory Muscle Use, No Respiratory Distress Cardiovascular: Regular Rate, Rhythm, No Edema, No JVD Capillary Refill: Less Than 3 Seconds Extremity: Non Tender, No Calf Tenderness, No Pedal Edema Neurologic/Psychiatric: Alert, Oriented x3 Skin: Warm/Dry, Pallor Lymphatic: No Adenopathy Results Lab Laboratory Tests 01/01/19 09:30 01/02/19 02:51 Assessment/Plan Assessment/Plan Septice Shock -Levophed -IVF -Park cultures -Vanco Fatmatasyn Severe Anemia -S/p transfusion x 3 -Monitor Pancytopenia -Will give 6pk of platelets Metabolic lactic acidosis -IVF -Monitor LOREN CHRISTIAN DO January 02, 2019 05:55
[2019-01-02] MEDS: POTASSIUM CL 10MEQ/50ML IVPB 50 ML IV SCH (06:51)
[2019-01-02] MEDS: MAGNESIUM 1 GM/100 ML IVPB 100 ML IV SCH (06:51)
[2019-01-02] MEDS: KCL 20 MEQ TAB (K-DUR) PO SCH (06:52)
[2019-01-02] MEDS: RT-ALBUTEROL SULF 2.5 MG/3 ML PRE-MIX VIAL INH SCH ×2 (08:44→20:37)
--- NOTE | 2019-01-02 09:27 | Diagnostic Imaging Report ---
Indication: Dyspnea Comparison: 01/01/2019 Technique: Single radiograph of the chest dated 01/02/2019 Findings: Right-sided Port-A-Cath is stable. Cardiac silhouette is stable. No significant pulmonary vascular congestion. Increasing patchy opacities are identified within the right mid and lower lung with associated trace right pleural effusion. The left lung appears clear. No significant left pleural effusion. No pneumothorax. No acute osseous abnormality. Impression: Developing right mid and lower lung opacities with associated trace right pleural effusion. Dictated by: Dictated on workstation # [id number]
--- NOTE | 2019-01-02 09:27 | Progress Note-Hospitalist ---
Subjective HPI/CC On Admission Date Seen by Provider: January 02, 2019 Time Seen by Provider: 08:45 The patient is a 73-year-old white male who had undergone port placement yesterday per Dr. 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 It was done as an outpatient he felt well upon discharge from surgery Center but well eating evening meal around 6 he developed chills and fever describing Reiger's. He denied cough chest congestion dysuria or increased frequency abdominal pain diarrhea or any change in bowel habit. He felt short of breath with the onset of his Reiger's he got progressively worse overnight with confusion and presented to the emergency room with hypotension and tachycardia. Blood cultures were obtained peripherally as well as through the port and he was started on Zosyn and vancomycin. He reports roughly 10 days ago he was started on prednisone per his oncologist initially 60 mg he was told not to take his dose yesterday the day of the surgery and is been without it for the past 48 hours. He was recently started on Levaquin and Diflucan presumably due to very low ANC counts and received platelets yesterday prior to his surgery. It appears that he typically gets blood transfusions when he gets down into the 6 range when he is more symptomatic they weren't sure what platelet count when he is not bleeding that he has been getting platelet transfusions 4. Patient reports past history of right lower lobectomy for non- small cell lung cancer he completed adjuvant chemotherapy in 2012 and there's been no reported evidence for recurrence thus far. Subjective/Events-last exam Patient voices no complaints denies night sweats chills fever or shortness of breath at rest. He's had no abdominal pain and chest pain dysuria or increasing urinary frequency. Focused Exam Lactate Level 01/01/19 09:30: Lactic Acid Level 4.08*H 01/01/19 11:14: Lactic Acid Level 2.20*H Time of Focused Exam: 11:10 Objective Exam Vital Signs Vital Signs Date Time Temp Pulse Resp B/P (MAP) Pulse Ox O2 Delivery O2 Flow Rate FiO2 01/02/19 08:45 97 Nasal Cannula 2.00 01/02/19 08:35 98.5 69 19 133/65 01/01/19 13:28 28 Capillary Refill : Less Than 3 SecondsLess Than 3 Seconds General Appearance: Mild Distress HEENT: PERRL/EOMI Neck: Non Tender, Supple Respiratory: Lungs Clear, No Accessory Muscle Use, No Respiratory Distress Cardiovascular: Regular Rate, Rhythm, No Edema, No JVD Gastrointestinal: Normal Bowel Sounds, No Organomegaly, No Pulsatile Mass, Non Tender, Soft Extremity: Non Tender, No Calf Tenderness, No Pedal Edema Neurologic/Psychiatric: Alert, Oriented x3 Skin: Warm/Dry, Pallor Lymphatic: No Adenopathy Results/Procedures Lab Laboratory Tests 01/01/19 09:30 01/02/19 02:51 Patient resulted labs reviewed. Assessment/Plan Assessment and Plan Assess & Plan/Chief Complaint 1. Severe sepsis with hypotensive significantly improved with no fever overnight resolution of tachycardia with improvement in blood pressure. He still requiring low-dose levo fed and will be receiving blood products and platelets hemoglobin down to 6.9 platelet count on the 22,000 with no evidence for active bleeding at this time. Continue to monitor in the unit. Blood cultures negative thus far. Continue broad-spectrum antibiotics. 2. The patient has been on rather high-dose oral steroids for at least 10 days for his report will add hydrocortisone stress dose for now as there may be a component of adrenal insufficiency will add a random cortisol level. Will start hydrocortisone taper likely back to 40 mg of prednisone in the morning decreasing to 100 mg twice a day today. 3. 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 received 1 unit of packed cells yesterday is receiving another 2 units of packed cells and 1 platelet pack. Continue to monitor counts. Critical Care Critically Ill Patient Clinical Quality Measures DVT/VTE Risk/Contraindication: Risk Factor Score Per Nursin RFS Level Per Nursing on Admit: 4+=Very High DEREK ALFORD MD January 02, 2019 09:27
[2019-01-02] MEDS: ACETAMINOPHEN 500 MG TAB (TYLENOL) PO PRN ×2 (12:16→23:25)
[2019-01-02 12:26] LABS: HEMOGLOBIN 7.3 G/DL (13.3-17.7)
--- NOTE | 2019-01-02 13:16 | Oncology Progress Note ---
Subjective Date Seen by a Provider: January 02, 2019 Time Seen by a Provider: 13:10 Subjective/Events-last exam Pt is feeling better. T max 100.2 over last 24 hrs. Cough out blood strikes in the thick sputum this morning. He is getting 2 units of RBC and one pack of Plt today. On Levofed 2mcg. was on 5 yesterday. Data Review Labs Laboratory Tests 01/02/19 02:51 01/02/19 12:00 Laboratory Tests 01/01/19 09:30: White Blood Count 1.7L, Red Blood Count 1.94L, Hemoglobin 6.6*L, Hematocrit 20*L , Mean Corpuscular Volume 101H, Red Cell Distribution Width 17.8H, Platelet Count 41L, Mean Platelet Volume 11.4H, Neutrophils # (Auto) 1.0L, Lymphocytes # (Auto) 0.5L, Prothrombin Time 15.8H, Carbon Dioxide Level 16L, Anion Gap 16H, Blood Urea Nitrogen 25H, Lactic Acid Level 4.08*H, Total Bilirubin 1.3H, Total Protein 6.2L 01/01/19 09:39: Urine Specific [place] 1.015L 01/01/19 11:14: Lactic Acid Level 2.20*H 01/02/19 02:51: White Blood Count 1.8L, Red Blood Count 1.79L, Hemoglobin 5.9*L, Hematocrit 17*L , Red Cell Distribution Width 19.1H, Platelet Count 22*L, Neutrophils # (Auto) 1.4L, Lymphocytes # (Auto) 0.2L, Carbon Dioxide Level 16L, Blood Urea Nitrogen 20H, Total Protein 4.8L, Neutrophils (%) (Auto) 81H, Potassium Level 3.3L, Chloride Level 112H, Glucose Level 181H, Calcium Level 7.7L, Aspartate Amino Transf (AST/SGOT) 36H, Albumin 3.0L 01/02/19 12:00: Hemoglobin 7.3#L, Hematocrit 21L Physical Exam Vital Signs Vital Signs - First Documented 01/01/19 01/01/19 09:12 13:28 Temp 101.1 Pulse 138 Resp 22 B/P (MAP) 108/83 (91) Pulse Ox 100 O2 Delivery Nasal Cannula O2 Flow Rate 2.00 FiO2 28 Capillary Refill : Less Than 3 SecondsLess Than 3 Seconds Height, Weight, BMI Height: 6'0.00" Weight: 223lbs. 2.0oz. 101.394820zl; 29.4 BMI Method:Stated General Appearance: No Apparent Distress HEENT: PERRL/EOMI Respiratory: Normal Breath Sounds, No Accessory Muscle Use, No Respiratory Distress Cardiovascular: Regular Rate, Rhythm, No JVD Gastrointestinal: Non Tender, Soft Extremity: Non Tender, No Calf Tenderness Neurologic/Psychiatric: Alert, Oriented x3 Focused Exam Lactate Level 01/01/19 09:30: Lactic Acid Level 4.08*H 01/01/19 11:14: Lactic Acid Level 2.20*H Time of Focused Exam: 11:10 Impression & Plan Impression & Plan 1. Fever, sepsis,? etiology. Blood culture negative day 1. Still required low dose pressor support and in the processing of weaning off. On IV antibiotics and IV steroid treatment day 2. 2. MDS, pancytopenia, 7% blasts in the bone marrow, NOT in AML 11/29/18 bone alannah ow exam at [facility]. 3. Mod-severe aortic stenosis, ? candidate for surgical repair/correction. Pt had cardiac and thoracic surgery evaluation 12/28/18. He will have more tests including JANETT on 01/10/19 to decide if he does have a critical stenosis and would be benefit from the surgical repair. 4. h/o RLL non-small cell lung cancer, s/p surgical resection and chemotherapy cisplatin and gemcitabine 2012. Most recent CT scan of chest and abdomen 11/26/2018 showed NO recurrence of disease. 5. Severe SOB and hypoxia with minimal exertion O2 saturation drop from 95% sitting to 87% standing and 82% walking a few steps and near syncope. This is mostly likely related to his aortic stenosis, rather than anemia. 6. 80 pack year of smoking, stopped 2012 when he as diagnosed with lung cancer 7. h/o CAD but recent cardiac cath 10/2018 did not show any blockage or active lesion. Plan: 1. Continue current IV Zosyn and Vanco as well as Diflucan. Please give the antibiotics through the port for 3 days in hope to save the port. If the patient continues to spike the fever and clinically no improvement for 72 hrs, we will have to remove the port. 2. Transfuse support to keep the Hb above 8. Transfuse Plt if the number below 20k or actively bleeding regardless the number. 3. Agree stress dose of steroid then followed by Prednisone 40/day for least 3 more days, then decide if taper down the steroid. 4. When he discharge home, he needs to be on prophylactic antibiotics today due to low WBC and ANC, Levaquin 750mg daily and Diflucan 150mg daily. He is allergic to Bactrim. 5. Thank you for the consultation. I will follow up with you. Clinical Quality Measures DVT/VTE Risk/Contraindication: Risk Factor Score Per Nursin RFS Level Per Nursing on Admit: 4+=Very High MAREN MUSE MD January 02, 2019 13:16
[2019-01-02] MEDS: FLUCONAZOLE 200 MG/100 ML 100 ML IV SCH (13:55)
[2019-01-02] MEDS: predniSONE 20 MG TAB PO SCH (13:55)
[2019-01-02 18:01] LABS: HEMOGLOBIN 7.2 G/DL (13.3-17.7)
[2019-01-02] MEDS: FAMOTIDINE 20 MG (PEPCID) TABLET PO SCH (20:24)
[2019-01-02] MEDS: CALCIUM CARBONATE 500 MG (TUMS) TAB.CHEW PO PRN ×2 (21:30→23:25)
[2019-01-02] MEDS ORDERED: PANTOPRAZOLE 40 MG (PROTONIX) TAB PO ONE ×2 (21:58→22:15)
[2019-01-03] VITALS (22 sets, daily range): BP systolic 92–154; BP diastolic 50–90
[2019-01-03] MEDS ORDERED: TROUGH ORDER-PHARMACY XX NR (01:00)
[2019-01-03] MEDS: PIPERACILLIN/TAZOBACTAM (BULK) 4.5 GM in NS (IVPB) 100 ML IV SCH ×3 (01:15→17:10)
[2019-01-03 01:29] LABS: BASOPHILS % (AUTO) 1 % (0-10); EOSINOPHILS % (AUTO) 0 % (0-10); LYMPHOCYTES # (AUTO) 0.3 X 10^3 (1.0-4.0); LYMPHOCYTES % (AUTO) 17 % (12-44); MEAN CORPUSCULAR HEMOGLOBIN 32 PG (25-34); MEAN CORPUSCULAR HGB CONC 35 G/DL (32-36); MEAN CORPUSCULAR VOLUME 92 FL (80-99); MEAN PLATELET VOLUME 9.9 FL (7.4-10.4); MONOCYTES % (AUTO) 3 % (0-12); NEUTROPHILS # (AUTO) 1.2 X 10^3 (1.8-7.8); NEUTROPHILS % (AUTO) 80 % (42-75); RED CELL DISTRIBUTION WIDTH 19.7 % (10.0-14.5); WHITE BLOOD COUNT 1.5 10^3/uL (4.3-11.0)
[2019-01-03 01:30] LABS: HEMATOCRIT 20 % (40-54); HEMOGLOBIN 6.9 G/DL (13.3-17.7); PLATELET COUNT 24 10^3/uL (130-400)
[2019-01-03 01:51] LABS: BUN/CREATININE RATIO 21; CALCIUM 7.9 MG/DL (8.5-10.1); CARBON DIOXIDE 17 MMOL/L (21-32); CHLORIDE 114 MMOL/L (98-107); CREATININE SERUM 0.94 MG/DL (0.60-1.30); GFR ESTIMATED > 60; GLUCOSE 180 MG/DL (70-105); MAGNESIUM 1.9 MG/DL (1.8-2.4); PHOSPHORUS 2.3 MG/DL (2.3-4.7); POTASSIUM 3.3 MMOL/L (3.6-5.0); SODIUM 142 MMOL/L (135-145)
[2019-01-03 01:58] LABS: VANCOMYCIN,TROUGH 15.2 UG/ML (10.0-20.0)
[2019-01-03] MEDS: VANCOMYCIN 1250 MG/NS 250 ML IVPB IV SCH ×4 (02:12→15:05)
[2019-01-03] MEDS: HYDROCORTISONE 100 MG/2 ML (Solu-CORTEF) VIAL IV SCH (02:12)
[2019-01-03] MEDS ORDERED: NS IV 500 ML 500 ML ONE (02:16)
[2019-01-03] MEDS: POTASSIUM CL 10MEQ/50ML IVPB 50 ML IV SCH ×5 (04:26→11:29)
[2019-01-03] MEDS: KCL 20 MEQ TAB (K-DUR) PO SCH (04:26)
[2019-01-03] MEDS: MAGNESIUM 1 GM/100 ML IVPB 100 ML IV SCH (04:26)
--- NOTE | 2019-01-03 05:29 | Pulmonary Progress Note ---
Subjective Time Seen by a Provider: 07:28 Subjective/Events-last exam Pt feels slight better however very weak. Sepsis Event Evaluation Height, Weight, BMI Height: 6'0.00" Weight: 223lbs. 2.0oz. 101.053799yn; 29.4 BMI Method:Stated Focused Exam Lactate Level 01/01/19 09:30: Lactic Acid Level 4.08*H 01/01/19 11:14: Lactic Acid Level 2.20*H Time of Focused Exam: 11:10 Exam Exam Vital Signs Date Time Temp Pulse Resp B/P (MAP) Pulse Ox O2 Delivery O2 Flow Rate FiO2 01/03/19 04:23 97.6 88 22 116/68 95 Nasal Cannula 2.00 01/03/19 04:00 62 11 117/68 (84) 95 Nasal Cannula 2.00 01/03/19 04:00 95 Nasal Cannula 2.00 01/03/19 03:00 69 25 112/64 (80) 94 Nasal Cannula 2.00 01/03/19 02:47 96.9 70 20 109/62 96 Nasal Cannula 2.00 01/03/19 02:31 97.5 70 20 112/65 95 Nasal Cannula 2.00 01/03/19 02:00 70 23 112/65 (81) 95 Nasal Cannula 2.00 01/03/19 01:00 67 19 94/55 (68) 93 Nasal Cannula 2.00 01/03/19 01:00 57 01/03/19 00:00 96 Nasal Cannula 2.00 01/03/19 00:00 98.8 01/03/19 00:00 75 17 92/50 (64) 93 Nasal Cannula 2.00 01/02/19 23:00 95 24 106/56 (73) 96 Nasal Cannula 2.00 01/02/19 22:00 90 27 115/77 (90) 95 Nasal Cannula 2.00 01/02/19 21:00 76 10 122/66 (84) 95 Nasal Cannula 2.00 01/02/19 20:36 97 Nasal Cannula 2.00 01/02/19 20:00 96 Nasal Cannula 2.00 01/02/19 20:00 72 27 131/85 (100) 96 Nasal Cannula 2.00 01/02/19 19:13 97.6 61 22 112/67 (82) 96 Nasal Cannula 2.00 01/02/19 19:00 67 01/02/19 18:00 71 31 97/72 (80) 95 Nasal Cannula 2.00 01/02/19 17:00 70 24 99/63 (75) 96 Nasal Cannula 2.00 01/02/19 16:00 74 24 99/58 (72) 97 Nasal Cannula 2.00 01/02/19 16:00 100 Nasal Cannula 2.00 01/02/19 15:02 99.1 01/02/19 15:00 77 48 109/63 (78) 92 Nasal Cannula 2.00 01/02/19 14:00 68 27 107/63 (78) 96 Nasal Cannula 2.00 01/02/19 13:00 76 01/02/19 13:00 76 42 100/58 (72) 95 Nasal Cannula 2.00 01/02/19 12:33 99.3 84 19 105/56 (72) 99 Nasal Cannula 2.00 01/02/19 12:18 99.7 01/02/19 12:18 85 17 100/61 Nasal Cannula 2.00 01/02/19 12:00 100 Nasal Cannula 2.00 01/02/19 12:00 80 17 82/53 (63) 95 Nasal Cannula 2.00 01/02/19 11:15 100.2 94 20 93/57 98 Nasal Cannula 2.00 01/02/19 11:00 99.4 88 19 92/65 97 Nasal Cannula 2.00 01/02/19 11:00 80 24 92/65 (74) 97 Nasal Cannula 2.00 01/02/19 10:45 99.5 84 15 100/58 99 Nasal Cannula 2.00 01/02/19 10:00 90 10 103/58 (73) 98 Nasal Cannula 2.00 01/02/19 09:00 107 26 92/49 (63) Nasal Cannula 2.00 01/02/19 09:00 107 01/02/19 08:45 97 Nasal Cannula 2.00 01/02/19 08:35 98.5 69 19 133/65 99 Nasal Cannula 2.00 01/02/19 08:14 79 01/02/19 08:00 80 39 125/68 (87) 94 Nasal Cannula 2.00 01/02/19 08:00 100 Nasal Cannula 2.00 01/02/19 07:00 74 12 98/62 (74) 98 Nasal Cannula 2.00 01/02/19 06:00 73 24 113/61 (78) 98 Nasal Cannula 2.00 I & O 01/03/19 07:00 Intake Total 980 ml Output Total 1400 ml Balance -420 ml Height & Weight Height: 6'0.00" Weight: 223lbs. 2.0oz. 101.960744gd; 29.4 BMI Method:Stated General Appearance: Anxious, Mild Distress HEENT: PERRL/EOMI Neck: Non Tender, Supple Respiratory: Lungs Clear, No Accessory Muscle Use, No Respiratory Distress Cardiovascular: Regular Rate, Rhythm, No Edema, No JVD Capillary Refill: Less Than 3 Seconds Extremity: Non Tender, No Calf Tenderness, No Pedal Edema Neurologic/Psychiatric: Alert, Oriented x3 Skin: Warm/Dry, Pallor Lymphatic: No Adenopathy Results Lab Laboratory Tests 01/01/19 09:30 01/02/19 02:51 01/02/19 12:00 01/02/19 17:55 01/03/19 01:25 Assessment/Plan Assessment/Plan Septice Shock - improved -IVF -Park cultures -Vanco Fatmatasyn Severe Anemia -S/p transfusion x 3 -Monitor Hypokalemia -Replace Pancytopenia -Will give 6pk of platelets Metabolic lactic acidosis -IVF -Monitor LOREN CHRISTIAN DO January 03, 2019 05:29
[2019-01-03 08:18] LABS: HEMOGLOBIN 7.8 G/DL (13.3-17.7)
[2019-01-03] MEDS: predniSONE 20 MG TAB PO SCH (08:45)
[2019-01-03] MEDS: FAMOTIDINE 20 MG (PEPCID) TABLET PO SCH ×2 (08:45→20:27)
[2019-01-03] MEDS: NS IV 1000 ML 1,000 ML IV SCH ×3 (08:45→19:58)
--- NOTE | 2019-01-03 09:11 | Diagnostic Imaging Report ---
Portable erect AP chest at 308 hours. INDICATION: Sepsis. FINDINGS: The prior exam of 01/02/2019 indicated developing right mid and lower lung opacities with a trace amount of fluid. On this study, the density in the right lung is perhaps slightly greater than on the prior exam. The pleural effusion noted previously is essentially no different. The left lung remains clear and the heart is stable. The mediastinum is not widened. The osseous structures are intact. The right-sided central venous catheter is unchanged in position. IMPRESSION: The appearance of the chest has worsened slightly since the prior exam as there does seem to be somewhat greater involvement of the right midlung and right lung base by pneumonia/atelectasis. A followup study would be recommended for continued evaluation. Dictated by: Dictated on workstation # [id number]
[2019-01-03] MEDS: RT-ALBUTEROL SULF 2.5 MG/3 ML PRE-MIX VIAL INH SCH ×2 (09:43→19:40)
--- NOTE | 2019-01-03 10:29 | Oncology Progress Note ---
Subjective Date Seen by a Provider: January 03, 2019 Time Seen by a Provider: 10:22 Subjective/Events-last exam Pt is feeling better. Having heart burn. He was taking Omeprazole 20mg bid at home. I are giving his Pepcid here. Off pressor support No more blood in the sputum CXR today suggesting pneumonia. Blood culture ALL negative both port and peripheral. Data Review Labs Laboratory Tests 01/02/19 12:00 01/02/19 17:55 01/03/19 01:25 01/03/19 08:08 Laboratory Tests 01/01/19 09:30: White Blood Count 1.7L, Red Blood Count 1.94L, Hemoglobin 6.6*L, Hematocrit 20*L , Mean Corpuscular Volume 101H, Red Cell Distribution Width 17.8H, Platelet Count 41L, Mean Platelet Volume 11.4H, Neutrophils # (Auto) 1.0L, Lymphocytes # (Auto) 0.5L, Prothrombin Time 15.8H, Carbon Dioxide Level 16L, Anion Gap 16H, Blood Urea Nitrogen 25H, Lactic Acid Level 4.08*H, Total Bilirubin 1.3H, Total Protein 6.2L 01/01/19 09:39: Urine Specific [place] 1.015L 01/01/19 11:14: Lactic Acid Level 2.20*H 01/02/19 02:51: White Blood Count 1.8L, Red Blood Count 1.79L, Hemoglobin 5.9*L, Hematocrit 17*L , Red Cell Distribution Width 19.1H, Platelet Count 22*L, Neutrophils # (Auto) 1.4L, Lymphocytes # (Auto) 0.2L, Carbon Dioxide Level 16L, Blood Urea Nitrogen 20H, Total Protein 4.8L, Neutrophils (%) (Auto) 81H, Potassium Level 3.3L, Chloride Level 112H, Glucose Level 181H, Calcium Level 7.7L, Aspartate Amino Transf (AST/SGOT) 36H, Albumin 3.0L 01/02/19 12:00: Hemoglobin 7.3#L, Hematocrit 21L 01/02/19 17:55: Hemoglobin 7.2L, Hematocrit 21L 01/03/19 01:25: Hemoglobin 6.9*L, Hematocrit 20*L, White Blood Count 1.5L, Red Blood Count 2.16L , Red Cell Distribution Width 19.7H, Platelet Count 24*L, Neutrophils (%) (Auto) 80H, Neutrophils # (Auto) 1.2L, Lymphocytes # (Auto) 0.3L, Potassium Level 3.3L, Chloride Level 114H, Carbon Dioxide Level 17L, Blood Urea Nitrogen 20H, Glucose Level 180H, Calcium Level 7.9L 01/03/19 08:08: Hemoglobin 7.8L, Hematocrit 22L, Lactic Acid Level 2.30*H IMPRESSION of chest Xray 01-03-19: The appearance of the chest has worsened slightly since the prior exam as there does seem to be somewhat greater involvement of the right midlung and right lung base by pneumonia/atelectasis. A followup study would be recommended for continued evaluation. Physical Exam Vital Signs Vital Signs - First Documented 01/01/19 01/01/19 09:12 13:28 Temp 101.1 Pulse 138 Resp 22 B/P (MAP) 108/83 (91) Pulse Ox 100 O2 Delivery Nasal Cannula O2 Flow Rate 2.00 FiO2 28 Capillary Refill : Less Than 3 SecondsLess Than 3 Seconds Height, Weight, BMI Height: 6'0.00" Weight: 225lbs. 2.0oz. 102.998358nc; 29.4 BMI Method:Stated General Appearance: No Apparent Distress HEENT: PERRL/EOMI Neck: Non Tender, Supple Respiratory: No Accessory Muscle Use, No Respiratory Distress Cardiovascular: Regular Rate, Rhythm, No Edema, No JVD Gastrointestinal: Non Tender, Soft Extremity: Non Tender, No Calf Tenderness, No Pedal Edema Neurologic/Psychiatric: Alert, Oriented x3 Focused Exam Lactate Level 01/01/19 09:30: Lactic Acid Level 4.08*H 01/01/19 11:14: Lactic Acid Level 2.20*H 01/03/19 08:08: Lactic Acid Level 2.30*H Time of Focused Exam: 11:10 Lactic Acid Level Laboratory Tests Test 01/03/19 08:08 Lactic Acid Level 2.30 MMOL/L (0.50-2.00) *H Impression & Plan Impression & Plan 1. Fever, sepsis, most likely pneumonia. Blood cultures all negative day 2. Off pressor support. On IV antibiotics and IV steroid treatment day 3. Overall improving. 2. 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 3. Mod-severe aortic stenosis, ? candidate for surgical repair/correction. Pt had cardiac and thoracic surgery evaluation 12/28/18. He will have more tests including JANETT on 01/19/19 to decide if he does have a critical stenosis and would be benefit from the surgical repair. 4. h/o RLL non-small cell lung cancer, s/p surgical resection and chemotherapy cisplatin and gemcitabine 2012. Most recent CT scan of chest and abdomen 11/26/2018 showed NO recurrence of disease. 5. Severe SOB and hypoxia with minimal exertion O2 saturation drop from 95% sitting to 87% standing and 82% walking a few steps and near syncope. This is mostly likely related to his aortic stenosis, rather than anemia. 6. 80 pack year of smoking, stopped 2012 when he as diagnosed with lung cancer 7. h/o CAD but recent cardiac cath 10/2018 did not show any blockage or active lesion. 8. GERD, taking omeprazole at home Plan: 1. Continue current IV Zosyn and Vanco as well as Diflucan. Please give the antibiotics through the port for 5-7 days in hope to save the port. It seems that we can save the port. 2. Transfusion support to keep the Hb around 8. Transfuse Plt only if the plt number below 20k or actively bleeding regardless the plt number. Pt does not need frequent Hb/Hct from the MDS pancytopenia point of view. If concerning GI bleeding, then check stool occult blood. Pt is on Pepcid prophylaxis. We can add his home med Omeprazole 20mg bid. 3. Continue Prednisone 40/day for least 3 more days, then decide if taper down the steroid. The steroid taper will depend on his Plt number and clinical performance. 4. When he is ready to be discharge home, he needs to be on prophylactic antibiotics due to low WBC and ANC. Levaquin 750mg daily and Diflucan 150mg daily. He is allergic to Bactrim. 5. Thank you for the consultation. I will follow up with you. Clinical Quality Measures DVT/VTE Risk/Contraindication: Risk Factor Score Per Nursin RFS Level Per Nursing on Admit: 4+=Very High MAREN MUSE MD January 03, 2019 10:29
--- NOTE | 2019-01-03 12:11 | Physical Therapy Evaluation ---
PT Evaluation-General Medical Diagnosis Admission Date January 01, 2019 at 11:02 Medical Diagnosis: sepsis Onset Date: January 03, 2019 Therapy Diagnosis Therapy Diagnosis: unsteady gait Height/Weight Height (Feet): 6 Height (Inches): 0.00 Weight (Pounds): 225 Weight (Ounces): 2.0 Precautions Precautions/Isolations: Protective Isolation, Fall Prevention, Standard Precautions reverse isolation secondary low white count Weight Bear Status Full Weight Bearing Full Weight Bearing Referral Reason for Referral: Evaluation/Treatment Medical History Additional Medical History lung cancer with lobectomy 7 yrs ago Current History acute sepsis with hypotensive shock Social History Home: Single Level Current Living Status: Spouse Prior/Core FIM Prior Level of Function Therapy Code Descriptions/Definitions Functional [place] Measure: 0=Not Assessed/NA 4=Minimal Assistance 1=Total Assistance 5=Supervision or Setup 2=Maximal Assistance 6=Modified [place] 3=Moderate Assistance 7=Complete [place] Therapy Quality Codes: 6 Independent with activity with or without an assistive device 5 Patient requires set up or clean up by helper. Patient completes activity by themselves 4 Supervision or touching assist (CGA). [place] provide cues , steadying assist 3 The helper provides less than half the effort to complete the activity 2 The helper provides more than half the effort to complete the activity 1 Dependent. The helper does all the effort to complete an activity 7 Patient refused to complete or attempt activity 9 The patient did not perform the activity before the current illness or injury 88 Not attempted due to Medical conditions or safety concerns Functional Abilities and Goals: Independent: Patient completed the activities by him/herself, with or without an assistive device, with no assistance from a helper. Needed Some Help: Patient needed partial assistance from another person to complete activities. Dependent: A helper completed the activities for the patient. 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 Pt dc to home. That evening he began experiencing increased SOB and confusion. Admitted through ER secondary hyptonsion and tachycardia. Pt now on ICU and stable but with low white count. Pt/Family Goals dismiss to home when medically stable Objective Patient Orientation: Normal For Age Problem Solving: Good Attachments: Oxygen, IV ROM/Strength ROM Upper Extremities WFL ROM Lower Extremities WFL Strength Upper Extremities gross 4/5 Strength Lower Extremities gross 4/5 Sensory Vision: Functional Hearing: Functional Transfers Therapy Code Descriptions/Definitions Functional [place] Measure: 0=Not Assessed/NA 4=Minimal Assistance 1=Total Assistance 5=Supervision or Setup 2=Maximal Assistance 6=Modified [place] 3=Moderate Assistance 7=Complete [place] Transfers (B, C, W/C) (FIM): 4 Supine to/from Sit: 4 Sit to/from Stand: 4 Min Assist to come to sitting. Supervision for balance during transfer. Able to stand with CGA using SPC. Gait Mode of Locomotion: Walk Anticipated Mode of Locomotion: Walk Gait (FIM): 2 Distance: 5 Gait Level of Assist: 4 Gait Persons Needed: 1 Gait Assistive Device: Cane Single Point Comments/Gait Description Ambulated short distance using single point cane secondary to attachments in ICU. Pt only required steadying assist upon initial stance. Demonstated appropriate use of single point cane. Assessment/Needs Pt has weakness and impaired balance secondary illness and several days of being in bed. He will benefit from PT to address longer distance gait stability and balance. Rehab Potential: Fair PT Wheel Alignment Mechanic Goals Wheel Alignment Mechanic Goals PT Fpc Goals Time Frame: January 07, 2019 Transfers (B,C,W/C) (FIM): 6 Gait (FIM): 6 Gait distance (FIM): 3=150 ft Distance: 150 Gait Level of Assist: 6 Gait Assistive Device: Cane Single Point Stairs (FIM): 5 # of Steps: 5 Stairs Level Of Assist: 6 PT Plan Problem List Problem List: Activity Tolerance, Functional Strength, Safety, Balance, Gait Treatment/Plan Treatment Plan: Continue Plan of Care Treatment Plan: Bed Mobility, Education, Functional Activity Julia, Functional Strength, Group Therapy, Gait Treatment Duration: January 07, 2019 Frequency: 6 times per week Estimated Hrs Per Day: .25 hour per day Patient and/or Family Agrees t: Yes Time/GCodes Time In: 1140 Time Out: 1215 Total Billed Treatment Time: 35 Total Billed Treatment visit, ethan moderate complexity 35 min KASIA MEJIA PT January 03, 2019 12:11
[2019-01-03 12:13] LABS: HEMOGLOBIN 8.1 G/DL (13.3-17.7)
--- NOTE | 2019-01-03 12:20 | NUR ---
Report received at bedside from Veronika JO. Patient oriented to room and call light. Patient sitting up in recliner at this time, family in room. Denies any pain or discomfort at this time, will continue to monitor.
--- NOTE | 2019-01-03 12:40 | NUR ---
patient transfered to room 418 bedside report given to Charity JO
[2019-01-03] MEDS: FLUCONAZOLE 200 MG/100 ML 100 ML IV SCH (15:19)
[2019-01-03 18:09] LABS: HEMOGLOBIN 7.8 G/DL (13.3-17.7)
[2019-01-04] VITALS (7 sets, daily range): BP systolic 100–169; BP diastolic 60–77
[2019-01-04] MEDS: PIPERACILLIN/TAZOBACTAM (BULK) 4.5 GM in NS (IVPB) 100 ML IV SCH ×4 (00:04→23:47)
[2019-01-04 00:19] LABS: HEMOGLOBIN 7.4 G/DL (13.3-17.7)
[2019-01-04] MEDS: VANCOMYCIN 1250 MG/NS 250 ML IVPB IV SCH ×4 (04:03→14:23)
[2019-01-04] MEDS: KCL 20 MEQ TAB (K-DUR) PO SCH (05:48)
[2019-01-04] MEDS: MAGNESIUM 1 GM/100 ML IVPB 100 ML IV SCH (05:48)
[2019-01-04] MEDS: POTASSIUM CL 10MEQ/50ML IVPB 50 ML IV SCH (05:48)
--- NOTE | 2019-01-04 05:57 | NUR ---
0515: PT COMPLAINING OF SHORTNESS OF BREATH. BLOOD PRESSURE 169/77, HEART RATE 109 BPM, AND OXYGEN SATURATION 88% ON 2L OXYGEN VIA NC. BREATH SOUNDS COARSE TO AUSCULTATION. PT COUGHING UP BLOOD, WHICH PT REPORTS STARTING "A FEW DAYS AGO" PT STATED DR. ALFORD AWARE OF COUGHING UP BLOOD. PT PLACED ON 4L OXYGEN VIA NASAL CANNULA, OXYGEN SATURATION NOW 94%. RT CALLED AT THIS TIME. 0525: BREATHING TREATMENT GIVEN PER RT, OXYGEN SATURATION 94%. 0535: PT PLACED ON VAPOTHERM AT 20L AND 45%. OXYGEN SATURATION NOW 95% AND HEART RATE 80 BPM. SLIGHT WHEEZES HEARD ON AUSCULTATION. PT CURRENTLY NOT COUGHING UP BLOOD. PT REPORTS NO LONGER BEING SHORT OF BREATH. DR. CHRISTIAN NOTIFIED PER RT. WILL CONTINUE TO MONITOR.
[2019-01-04] MEDS: predniSONE 20 MG TAB PO SCH (06:38)
[2019-01-04 06:49] LABS: BASOPHILS % (AUTO) 1 % (0-10); EOSINOPHILS # (AUTO) 0.1 10^3/uL (0.0-0.3); EOSINOPHILS % (AUTO) 7 % (0-10); HEMATOCRIT 21 % (40-54); HEMOGLOBIN 7.3 G/DL (13.3-17.7); LYMPHOCYTES # (AUTO) 0.5 X 10^3 (1.0-4.0); LYMPHOCYTES % (AUTO) 27 % (12-44); MEAN CORPUSCULAR HEMOGLOBIN 31 PG (25-34); MEAN CORPUSCULAR HGB CONC 34 G/DL (32-36); MEAN CORPUSCULAR VOLUME 91 FL (80-99); MONOCYTES # (AUTO) 0.1 X 10^3 (0.0-1.0); MONOCYTES % (AUTO) 3 % (0-12); NEUTROPHILS # (AUTO) 1.2 X 10^3 (1.8-7.8); NEUTROPHILS % (AUTO) 62 % (42-75); RED CELL DISTRIBUTION WIDTH 18.7 % (10.0-14.5)
[2019-01-04 06:52] LABS: PLATELET COUNT 28 10^3/uL (130-400)
[2019-01-04 07:09] LABS: BUN/CREATININE RATIO 20; CARBON DIOXIDE 19 MMOL/L (21-32); CHLORIDE 113 MMOL/L (98-107); CREATININE SERUM 0.84 MG/DL (0.60-1.30); GFR ESTIMATED > 60; GLUCOSE 98 MG/DL (70-105); POTASSIUM 3.3 MMOL/L (3.6-5.0); SODIUM 139 MMOL/L (135-145)
[2019-01-04] MEDS ORDERED: RT-ALBUTEROL/IPRATROPIUM 3 ML (DUONEB) VIAL INH PRN (07:15)
[2019-01-04] MEDS: FAMOTIDINE 20 MG (PEPCID) TABLET PO SCH ×2 (08:31→20:12)
[2019-01-04] MEDS: NS IV 1000 ML 1,000 ML IV SCH (08:37)
--- NOTE | 2019-01-04 09:38 | Pulmonary Progress Note ---
Subjective Time Seen by a Provider: 09:38 Subjective/Events-last exam Pt is feeling SOB. Sepsis Event Evaluation Height, Weight, BMI Height: 6'0.00" Weight: 236lbs. 1.6oz. 107.426145mr; 29.4 BMI Method:Stated Focused Exam Lactate Level 01/01/19 11:14: Lactic Acid Level 2.20*H 01/03/19 08:08: Lactic Acid Level 2.30*H 01/03/19 12:06: Lactic Acid Level 3.37*H Time of Focused Exam: 11:10 Exam Exam Vital Signs Date Time Temp Pulse Resp B/P (MAP) Pulse Ox O2 Delivery O2 Flow Rate FiO2 01/04/19 08:19 98.1 72 20 122/72 (89) 94 Vapotherm 45.00 20.00 01/04/19 07:02 77 93 45 01/04/19 05:30 80 94 Vapotherm 45.00 20.00 01/04/19 05:26 94 Nasal Cannula 4.00 01/04/19 05:15 109 26 169/77 (107) 95 Nasal Cannula 4.00 01/04/19 04:00 97.7 68 20 122/60 (80) 93 Nasal Cannula 2.00 01/03/19 23:52 98.7 83 20 121/64 (83) 96 NIV CPAP 01/03/19 21:00 94 Nasal Cannula 2.00 01/03/19 20:00 97.2 83 20 131/64 (86) 94 Nasal Cannula 2.00 01/03/19 19:40 93 Nasal Cannula 2.00 01/03/19 16:00 97.9 84 22 146/69 (94) 95 Nasal Cannula 2.00 01/03/19 13:25 98.7 91 18 154/72 95 Nasal Cannula 2.00 01/03/19 12:54 97.2 76 24 137/64 (88) 96 Nasal Cannula 2.00 01/03/19 12:00 98.6 01/03/19 12:00 Nasal Cannula 2.00 01/03/19 12:00 92 20 Nasal Cannula 2.00 01/03/19 11:00 78 41 126/83 (97) Nasal Cannula 2.00 01/03/19 10:45 98.2 71 18 126/83 Nasal Cannula 2.00 01/03/19 10:22 97.2 82 23 123/67 97 Nasal Cannula 2.00 01/03/19 10:00 78 10 123/67 (85) Nasal Cannula 2.00 01/03/19 09:43 97 Nasal Cannula 2.00 I & O 01/04/19 07:00 Intake Total 1902.5 ml Output Total 1775 ml Balance 127.5 ml Height & Weight Height: 6'0.00" Weight: 236lbs. 1.6oz. 107.954908ds; 29.4 BMI Method:Stated General Appearance: No Apparent Distress, Anxious, Mild Distress HEENT: PERRL/EOMI Neck: Non Tender, Supple Respiratory: No Accessory Muscle Use, No Respiratory Distress Cardiovascular: Regular Rate, Rhythm, No Edema, No JVD Capillary Refill: Less Than 3 Seconds Extremity: Non Tender, No Calf Tenderness, No Pedal Edema Neurologic/Psychiatric: Alert, Oriented x3 Skin: Warm/Dry, Pallor Lymphatic: No Adenopathy Results Lab Laboratory Tests 01/02/19 12:00 01/02/19 17:55 01/03/19 01:25 01/03/19 08:08 01/03/19 12:06 01/03/19 18:00 01/04/19 00:10 01/04/19 06:40 Assessment/Plan Assessment/Plan Worsening SOB with hemoptysis -I suspect pt is volume overload -I am going to hep lock IVF currently going at 150 -Will give 60mg of Lasix x 1 -Check BNP and Lactic acid -Currently requiring Vapotherm. Will check CXR. PT will probably need to transfer back to ICU if Lasix does not improve SOB. S/p Septice Shock - improved -IVF -Park cultures -Vanco Zosyn Severe Anemia -S/p transfusion x 3 -Monitor Hypokalemia -Replace Pancytopenia -monitor Metabolic lactic acidosis -Monitor -Repeat LA 1520 UPDATE: discussed with RN. Pt is doing better after lasix. He is less SOB. He has not coughed up anymore blood per RN today. Will continue to monitor close on 4th floor for now with low threshold of sending to ICU. LOREN CHRISTIAN DO January 04, 2019 09:38
--- NOTE | 2019-01-04 09:38 | Physical Therapy Daily Note ---
PT Daily Note-Current Subjective Patient in bed pre tx, agrees to PT, has no complaints of pain. Patient is cautious because he says he had a "breathing episode" this morning. Appearance Patient in recliner post tx with nurse call, phone, tray, all needs met. Patient experienced some slight SOB but recovered normally with purse lip breathing. Mental Status Patient Orientation: Person, Place, Situation Attachments: Oxygen, IV Transfers Therapy Code Descriptions/Definitions Functional [place] Measure: 0=Not Assessed/NA 4=Minimal Assistance 1=Total Assistance 5=Supervision or Setup 2=Maximal Assistance 6=Modified [place] 3=Moderate Assistance 7=Complete [place] Therapy Quality Codes: 6 Independent with activity with or without an assistive device 5 Patient requires set up or clean up by helper. Patient completes activity by themselves 4 Supervision or touching assist (CGA). [place] provide cues , steadying assist 3 The helper provides less than half the effort to complete the activity 2 The helper provides more than half the effort to complete the activity 1 Dependent. The helper does all the effort to complete an activity 7 Patient refused to complete or attempt activity 9 The patient did not perform the activity before the current illness or injury 88 Not attempted due to Medical conditions or safety concerns Transfers (B, C, W/C) (FIM): 5 Scootin Rollin Supine to/from Sit: 5 Sit to/from Stand: 5 Bed to/from Chair: 5 Weight Bearing Full Weight Bearing Full Weight Bearing Gait Training Gait (FIM): 1 Distance: 5' Gait Level of Assist: 5 Gait Persons Needed: 1 Gait Assistive Device: Cane Single Point No LOB or unsteadiness for this short distance. Exercises Seated Therapy Exercises: Ankle pumps, Long arc quads, Hip flexion Seated Reps: 15 Treatments bed mobility and transfers, ambulation, LE exercise Assessment Current Status: Fair Progress improving general mobility PT Stud Setter Goals [place] Goals PT Stud Setter Goals Time Frame: January 07, 2019 Transfers (B,C,W/C) (FIM): 6 Gait (FIM): 6 Gait distance (FIM): 3=150 ft Distance: 150 Gait Level of Assist: 6 Gait Assistive Device: Cane Single Point Stairs (FIM): 5 # of Steps: 5 Stairs Level Of Assist: 6 PT Plan Problem List Problem List: Activity Tolerance, Functional Strength, Safety, Balance, Gait, Transfer, Bed Mobility Treatment/Plan Treatment Plan: Continue Plan of Care Treatment Plan: Bed Mobility, Education, Functional Activity Julia, Functional Strength, Group Therapy, Gait Treatment Duration: January 07, 2019 Frequency: 6 times per week Estimated Hrs Per Day: .25 hour per day Patient and/or Family Agrees t: Yes Safety Risks/Education Patient Education: Gait Training, Transfer Techniques, Correct Positioning, Safety Issues Teaching Recipient: Patient Teaching Methods: Demonstration, Discussion Response to Teaching: Reinforcement Needed Time/GCodes Time In: 09 Time Out: 0935 Total Billed Treatment Time: 15 Total Billed Treatment 1 visit FA DONY PARKS PT January 04, 2019 09:38
[2019-01-04] MEDS ORDERED: methylPREDNISolone 125 MG (Solu-MEDROL) VIAL IVP NR (09:45)
[2019-01-04] MEDS ORDERED: FUROSEMIDE 40 MG/4 ML INJ (LASIX) IVP NR (09:45)
[2019-01-04] MEDS ORDERED: KCL 20 MEQ TAB (K-DUR) PO NR (09:45)
--- NOTE | 2019-01-04 09:58 | Diagnostic Imaging Report ---
INDICATION: Shortness of air. TECHNIQUE: Single view chest at 9:39 AM. CORRELATION STUDY: 01/03/2019, 01/02/2019. FINDINGS: Right IJ [id number] catheter is present, tip projected over the low SVC. Heart size and mediastinum are stable. Vasculature appears overall increased from the prior studies. Progressive consolidation and/or infiltrate of the lung tim, particularly in the right perihilar and upper lobe distribution appears more consolidated and dense from prior study. Moderate right and small left pleural effusion also appearing slightly increased. IMPRESSION: 1. Overall worsening appearance about the chest. Increasing areas of infiltrate and/or edema at both lung tim, particularly at the right perihilar and upper lobe distribution along with bilateral pleural effusions. Vasculature overall increased from prior study as well. Dictated by: Dictated on workstation # [id number]
[2019-01-04] MEDS ORDERED: ACET-2267 PO (10:11)
[2019-01-04] MEDS ORDERED: MOME220A2 IH (10:11)
[2019-01-04] MEDS ORDERED: FOLI1TAB24 PO (10:11)
--- NOTE | 2019-01-04 10:11 | NUR ---
WENT OVER THE EXT MED HX AND VERIFIED WITH THE PATIENT WHAT MEDICATIONS HE IS TAKING THAT HE FILLS AT [facility]. HE TAKES TYLENOL OTC PRN. [facility] AL[facility] BUT HAD A DETAILED LIST OF WHAT THOSE MEDICATIONS WERE. I UPDATED THE MED REC ACCORDING TO HIS LIST.
[2019-01-04] MEDS: RT-ALBUTEROL/IPRATROPIUM 3 ML (DUONEB) VIAL INH SCH ×4 (10:51→21:41)
[2019-01-04] MEDS: FLUCONAZOLE 200 MG/100 ML 100 ML IV SCH (14:23)
--- NOTE | 2019-01-04 15:38 | Progress Note-Hospitalist ---
Progress Note Progress Notes/Assess & Plan Date Seen 01/04/19 Time Seen by Provider: 15:35 Assessment & Plan The patient is a 73-year-old white male with transfusion requiring myelodysplastic syndrome. He presented here and apparent sepsis. He has been placed on broad-spectrum antibiotics and antifungal's. He reports that he feels somewhat better today. He is coughing up a bit of streaky blood when he coughs. He also has bruises of varying age. Physical exam: He is alert and somewhat hoarse. Lungs show distant breath sounds. CV is regular. Impression: Myelodysplastic syndrome. 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 3.sepsis Plan: Continue broad-spectrum antibiotics Focused Exam Lactate Level 01/03/19 12:06: Lactic Acid Level 3.37*H 01/04/19 10:15: Lactic Acid Level 3.51*H 01/04/19 12:25: Lactic Acid Level 3.24*H Time of Focused Exam: 11:10 Lactic Acid Level Laboratory Tests Test 01/04/19 12:25 Lactic Acid Level 3.24 MMOL/L (0.50-2.00) *H GRACE ESCOBAR MD January 04, 2019 15:38
[2019-01-04] MEDS: methylPREDNISolone 40 MG/ML (Solu-MEDROL) VIAL IV SCH ×2 (16:19→21:52)
--- NOTE | 2019-01-04 16:49 | Oncology Progress Note ---
Subjective Date Seen by a Provider: January 04, 2019 Time Seen by a Provider: 16:42 Subjective/Events-last exam Pt had more SOB this morning and CXR showed volume overload. Dr Alfred stopped IVF and started him Lasix IV. His SOB is better this afternoon. Data Review Labs Laboratory Tests 01/03/19 18:00 01/04/19 00:10 01/04/19 06:40 Laboratory Tests 01/02/19 02:51: White Blood Count 1.8L, Red Blood Count 1.79L, Hemoglobin 5.9*L, Hematocrit 17*L , Red Cell Distribution Width 19.1H, Platelet Count 22*L, Neutrophils (%) (Auto) 81H, Neutrophils # (Auto) 1.4L, Lymphocytes # (Auto) 0.2L, Potassium Level 3.3L, Chloride Level 112H, Carbon Dioxide Level 16L, Blood Urea Nitrogen 20H, Glucose Level 181H, Calcium Level 7.7L, Aspartate Amino Transf (AST/SGOT) 36H, Total Protein 4.8L, Albumin 3.0L 01/02/19 12:00: Hemoglobin 7.3#L, Hematocrit 21L 01/02/19 17:55: Hemoglobin 7.2L, Hematocrit 21L 01/03/19 01:25: White Blood Count 1.5L, Red Blood Count 2.16L, Hemoglobin 6.9*L, Hematocrit 20*L , Red Cell Distribution Width 19.7H, Platelet Count 24*L, Neutrophils (%) (Auto) 80H, Neutrophils # (Auto) 1.2L, Lymphocytes # (Auto) 0.3L, Potassium Level 3.3L, Chloride Level 114H, Carbon Dioxide Level 17L, Blood Urea Nitrogen 20H, Glucose Level 180H, Calcium Level 7.9L 01/03/19 08:08: Hemoglobin 7.8L, Hematocrit 22L, Lactic Acid Level 2.30*H 01/03/19 12:06: Hemoglobin 8.1L, Hematocrit 23L, Lactic Acid Level 3.37*H 01/03/19 18:00: Hemoglobin 7.8L, Hematocrit 22L 01/04/19 00:10: Hemoglobin 7.4L, Hematocrit 21L 01/04/19 06:40: White Blood Count 2.0L, Red Blood Count 2.34L, Hemoglobin 7.3L, Hematocrit 21L, Red Cell Distribution Width 18.7H, Platelet Count 28*L, Neutrophils # (Auto) 1.2L, Lymphocytes # (Auto) 0.5L, Potassium Level 3.3L, Chloride Level 113H, Carbon Dioxide Level 19L, Calcium Level 8.0L 01/04/19 10:15: Lactic Acid Level 3.51*H, B-Type Natriuretic Peptide 403.9H 01/04/19 12:25: Lactic Acid Level 3.24*H 01/04/19 14:04: Physical Exam Vital Signs Vital Signs - First Documented 01/01/19 01/01/19 09:12 13:28 Temp 101.1 Pulse 138 Resp 22 B/P (MAP) 108/83 (91) Pulse Ox 100 O2 Delivery Nasal Cannula O2 Flow Rate 2.00 FiO2 28 Capillary Refill : Less Than 3 SecondsLess Than 3 Seconds Height, Weight, BMI Height: 6'0.00" Weight: 236lbs. 1.6oz. 107.999052au; 29.4 BMI Method:Stated General Appearance: No Apparent Distress HEENT: PERRL/EOMI Neck: Non Tender, Supple Respiratory: No Accessory Muscle Use, No Respiratory Distress, Crackles Cardiovascular: Regular Rate, Rhythm Gastrointestinal: Non Tender, Soft Extremity: Non Tender, No Calf Tenderness, No Pedal Edema Neurologic/Psychiatric: Alert, Oriented x3 Focused Exam Lactate Level 01/03/19 12:06: Lactic Acid Level 3.37*H 01/04/19 10:15: Lactic Acid Level 3.51*H 01/04/19 12:25: Lactic Acid Level 3.24*H Time of Focused Exam: 11:10 Impression & Plan Impression & Plan 1. Fever, sepsis, most likely pneumonia. Blood cultures all negative day 2. Off pressor support. On IV antibiotics and IV steroid treatment day 4. Overall improving. 2. MDS, pancytopenia, 7% blasts in the bone marrow, NOT in AML 11/29/18 bone marrow exam at [facility]. 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 3. Mod-severe aortic stenosis, ? candidate for surgical repair/correction. Pt had cardiac and thoracic surgery evaluation 12/28/18. He will have more tests including JANETT on 01/19/19 to decide if he does have a critical stenosis and would be benefit from the surgical repair. 4. h/o RLL non-small cell lung cancer, s/p surgical resection and chemotherapy cisplatin and gemcitabine 2012. Most recent CT scan of chest and abdomen 11/26/2018 showed NO recurrence of disease. 5. Severe SOB and hypoxia with minimal exertion O2 saturation drop from 95% sitting to 87% standing and 82% walking a few steps and near syncope. This is mostly likely related to his aortic stenosis, rather than anemia. 6. 80 pack year of smoking, stopped 2012 when he as diagnosed with lung cancer 7. h/o CAD but recent cardiac cath 10/2018 did not show any blockage or active lesion. 8. GERD, taking omeprazole at home 9. Volume overload. treated with IV Lasix. Improving. Plan: 1. Continue current IV Zosyn and Vanco as well as Diflucan. Please give the antibiotics through the port for 5-7 days in hope to save the port. It seems that we can save the port. 2. Transfusion support to keep the Hb around 8. Transfuse Plt only if the plt number below 20k; or actively bleeding regardless the plt number. Pt does not need frequent Hb/Hct from the MDS pancytopenia point of view. If concerning GI bleeding, then check stool occult blood. Pt is on Protonix and thumbs. 3. Pt is back on IV stress dose of solumedryl today. When he is ready to be discharged, he needs to be on Prednisone 40/day until he sees me again in the clinic. I will then decide the steroid taper. The steroid taper will depend on his Plt number and clinical performance. 4. When he is ready to be discharge home, he needs to be on prophylactic antibiotics due to low WBC and ANC. Levaquin 750mg daily and Diflucan 150mg daily. He is allergic to Bactrim. 5. Dr Alfred to manage the volume overload issues. Clinical Quality Measures DVT/VTE Risk/Contraindication: Risk Factor Score Per Nursin RFS Level Per Nursing on Admit: 4+=Very High MAREN MUSE MD January 04, 2019 16:49
[2019-01-04] MEDS: TEMAZEPAM 15 MG (RESTORIL) CAP PO SCH (20:12)
[2019-01-05] VITALS (9 sets, daily range): BP systolic 104–144; BP diastolic 58–89
[2019-01-05] MEDS: RT-ALBUTEROL/IPRATROPIUM 3 ML (DUONEB) VIAL INH SCH ×6 (01:53→22:21)
[2019-01-05] MEDS: VANCOMYCIN 1250 MG/NS 250 ML IVPB IV SCH ×4 (02:21→16:43)
[2019-01-05] MEDS: methylPREDNISolone 40 MG/ML (Solu-MEDROL) VIAL IV SCH ×4 (03:52→21:10)
[2019-01-05] MEDS: KCL 20 MEQ TAB (K-DUR) PO SCH (05:42)
[2019-01-05] MEDS: MAGNESIUM 1 GM/100 ML IVPB 100 ML IV SCH (05:42)
[2019-01-05] MEDS: POTASSIUM CL 10MEQ/50ML IVPB 50 ML IV SCH (05:42)
--- NOTE | 2019-01-05 07:00 | Pulmonary Progress Note ---
Subjective Time Seen by a Provider: 07:00 Subjective/Events-last exam Hemoptysis is now resolved. SOB is persistent Sepsis Event Evaluation Height, Weight, BMI Height: 6'0.00" Weight: 229lbs. 9.6oz. 104.261163xl; 29.4 BMI Method:Stated Focused Exam Lactate Level 01/03/19 12:06: Lactic Acid Level 3.37*H 01/04/19 10:15: Lactic Acid Level 3.51*H 01/04/19 12:25: Lactic Acid Level 3.24*H Time of Focused Exam: 11:10 Exam Exam Vital Signs Date Time Temp Pulse Resp B/P (MAP) Pulse Ox O2 Delivery O2 Flow Rate FiO2 01/05/19 04:00 96.0 71 18 115/74 (88) 99 NIV CPAP 45.00 20.00 01/05/19 01:53 99 NIV CPAP 5.00 01/05/19 01:00 101 01/05/19 00:00 97.9 72 18 112/89 (97) 98 NIV CPAP 45.00 20.00 01/04/19 21:41 94 NIV CPAP 5.00 01/04/19 20:02 98.4 88 18 100/61 (74) 97 Vapotherm 01/04/19 20:00 High Flow N/C 6.00 01/04/19 19:10 81 01/04/19 18:53 96 Nasal Cannula 5.00 01/04/19 16:05 High Flow N/C 6.00 01/04/19 15:27 97.8 86 18 131/71 (91) 97 Vapotherm 01/04/19 14:20 Vapotherm 45.00 10.00 01/04/19 14:18 94 Vapotherm 20.00 45 01/04/19 12:00 97.9 88 17 111/63 (79) 98 Vapotherm 45.00 20.00 01/04/19 10:51 98 Vapotherm 20.00 45 01/04/19 08:19 98.1 72 20 122/72 (89) 94 Vapotherm 45.00 20.00 01/04/19 08:00 Vapotherm 20.00 45 01/04/19 07:02 77 93 45 I & O 01/05/19 07:00 Intake Total 3525.0 ml Output Total 5400 ml Balance -1875.0 ml Height & Weight Height: 6'0.00" Weight: 229lbs. 9.6oz. 104.937782wy; 29.4 BMI Method:Stated General Appearance: No Apparent Distress HEENT: PERRL/EOMI Neck: Non Tender, Supple Respiratory: No Accessory Muscle Use, No Respiratory Distress, Crackles Cardiovascular: Regular Rate, Rhythm Capillary Refill: Less Than 3 Seconds Extremity: Non Tender, No Calf Tenderness, No Pedal Edema Neurologic/Psychiatric: Alert, Oriented x3 Skin: Warm/Dry, Pallor Lymphatic: No Adenopathy Results Lab Laboratory Tests 01/03/19 08:08 01/03/19 12:06 01/03/19 18:00 01/04/19 00:10 01/04/19 06:40 Assessment/Plan Assessment/Plan SOB with pulmonary edema -s/p lasix yesterday. IVF SL -Repeat labs and CXR pending -Currently josé luis BiPAP QHS Vapotherm during the day. Titrate Fi02. . Will check CXR. -Park cultures -Vanco Mileyn Severe Anemia -S/p transfusions -Monitor Pancytopenia -monitor Metabolic lactic acidosis -Monitor -Repeat LOREN CISNEROS DO January 05, 2019 07:00
[2019-01-05 07:02] LABS: BASOPHILS % (AUTO) 2 % (0-10); EOSINOPHILS % (AUTO) 0 % (0-10); LYMPHOCYTES # (AUTO) 0.2 X 10^3 (1.0-4.0); LYMPHOCYTES % (AUTO) 17 % (12-44); MEAN CORPUSCULAR HEMOGLOBIN 31 PG (25-34); MEAN CORPUSCULAR HGB CONC 34 G/DL (32-36); MEAN CORPUSCULAR VOLUME 91 FL (80-99); MEAN PLATELET VOLUME 10.2 FL (7.4-10.4); MONOCYTES # (AUTO) 0.1 X 10^3 (0.0-1.0); MONOCYTES % (AUTO) 4 % (0-12); NEUTROPHILS # (AUTO) 0.9 X 10^3 (1.8-7.8); NEUTROPHILS % (AUTO) 77 % (42-75); RED CELL DISTRIBUTION WIDTH 18.4 % (10.0-14.5)
[2019-01-05 07:08] LABS: HEMATOCRIT 19 % (40-54); HEMOGLOBIN 6.5 G/DL (13.3-17.7); PLATELET COUNT 22 10^3/uL (130-400); WHITE BLOOD COUNT 1.2 10^3/uL (4.3-11.0)
--- NOTE | 2019-01-05 07:13 | NUR ---
THIS RN CALLED DR. MUSE IN REGARDS TO THE PT'S WBC BEING 1.2, HEMOGLOBIN BEING 6.5, HEMATOCRIT BEING 18.9, AND PLATELETS BEING 22. ORDERS RECEIVED TO TRANSFUSE 1 UNIT OF PACKED RED BLOOD CELLS AND PREMEDICATE WITH 40 MG LASIX IVP ONCE AND TYLENOL 500 MG PO ONCE. ORDERS READ BACK AND VERIFIED.
[2019-01-05] MEDS ORDERED: NS IV 500 ML 500 ML IV SCH (07:14)
[2019-01-05] MEDS ORDERED: ACETAMINOPHEN 325 MG TABLET PO ONE (07:15)
[2019-01-05] MEDS ORDERED: FUROSEMIDE 40 MG/4 ML INJ (LASIX) IVP ONE (07:15)
[2019-01-05 07:20] LABS: BUN/CREATININE RATIO 23; CARBON DIOXIDE 22 MMOL/L (21-32); CHLORIDE 107 MMOL/L (98-107); CREATININE SERUM 0.84 MG/DL (0.60-1.30); GFR ESTIMATED > 60; GLUCOSE 148 MG/DL (70-105); POTASSIUM 3.2 MMOL/L (3.6-5.0); SODIUM 140 MMOL/L (135-145)
--- NOTE | 2019-01-05 08:26 | Diagnostic Imaging Report ---
Indication: Shortness of breath Portable chest 7:43 AM Right IJ Port-A-Cath tip projects over the SVC. There is interstitial infiltrate in the right upper lung. There is right pleural effusion. Left lung is essentially clear. Impression: Right lung infiltrate with an effusion. No change compared to previous days exam. Dictated by: Dictated on workstation # [id number]
[2019-01-05] MEDS ORDERED: ACETAMINOPHEN 500 MG TAB (TYLENOL) PO ONE (08:30)
--- NOTE | 2019-01-05 10:04 | NUR ---
Pt is listed as Mormon but is actually Confucianist and his signal wirer has been here to visit.
--- NOTE | 2019-01-05 10:33 | Physical Therapy Daily Note ---
PT Daily Note-Current Subjective Patient in bed pre tx, agrees to PT, has no complaints of pain. Patient would like to go to the bathroom and brush his teeth. Patient is low on hemoglobin and is supposed to get blood, agrees anyway. Appearance Patient in recliner post tx with nurse call, phone, tray, all needs met, family in the room. Mental Status Patient Orientation: Person, Place, Situation, Normal For Age Attachments: Oxygen, IV Transfers Therapy Code Descriptions/Definitions Functional Candler Measure: 0=Not Assessed/NA 4=Minimal Assistance 1=Total Assistance 5=Supervision or Setup 2=Maximal Assistance 6=Modified Candler 3=Moderate Assistance 7=Complete Candler Therapy Quality Codes: 6 Independent with activity with or without an assistive device 5 Patient requires set up or clean up by helper. Patient completes activity by themselves 4 Supervision or touching assist (CGA). Aurora provide cues , steadying assist 3 The helper provides less than half the effort to complete the activity 2 The helper provides more than half the effort to complete the activity 1 Dependent. The helper does all the effort to complete an activity 7 Patient refused to complete or attempt activity 9 The patient did not perform the activity before the current illness or injury 88 Not attempted due to Medical conditions or safety concerns Transfers (B, C, W/C) (FIM): 5 Scootin Rollin Supine to/from Sit: 5 Sit to/from Stand: 5 Bed to/from Chair: 5 Weight Bearing Full Weight Bearing Full Weight Bearing Gait Training Gait (FIM): 1 Distance: 10'x2 Gait Level of Assist: 5 Gait Persons Needed: 1 Gait Assistive Device: Cane Single Point No unsteadiness or LOB. He did get SOB with the little ambulation that he did do. Treatments Patient ambulated to the restroom, needed to have a BM, also needs to change his underware and socks because they are wet. Performs the BM without assist, puts on his pajama bottoms with SBA, dependent to put on socks, goes to sink and flosses his teeth, brushes his teeth, and greer his hair. Then to the recliner. Assessment Current Status: Fair Progress Improved endurance, some SOB but not enough to need to sit and rest. PT Skilled Nursing Goals Skilled Nursing Goals PT Skilled Nursing Goals Time Frame: January 07, 2019 Transfers (B,C,W/C) (FIM): 6 Gait (FIM): 6 Gait distance (FIM): 3=150 ft Distance: 150 Gait Level of Assist: 6 Gait Assistive Device: Cane Single Point Stairs (FIM): 5 # of Steps: 5 Stairs Level Of Assist: 6 PT Plan Problem List Problem List: Activity Tolerance, Functional Strength, Safety, Balance, Gait, Transfer Treatment/Plan Treatment Plan: Continue Plan of Care Treatment Plan: Bed Mobility, Education, Functional Activity Julia, Functional Strength, Group Therapy, Gait Treatment Duration: January 07, 2019 Frequency: 6 times per week Estimated Hrs Per Day: .25 hour per day Patient and/or Family Agrees t: Yes Safety Risks/Education Patient Education: Gait Training, Transfer Techniques, Correct Positioning, Safety Issues Teaching Recipient: Patient Teaching Methods: Demonstration, Discussion Response to Teaching: Reinforcement Needed Time/GCodes Time In: 0958 Time Out: 1026 Total Billed Treatment Time: 28 Total Billed Treatment 1 visit FA 28' DONY LOZOYA PT January 05, 2019 10:33
--- NOTE | 2019-01-05 10:54 | Progress Note-Hospitalist ---
Subjective HPI/CC On Admission Date Seen by Provider: January 05, 2019 Time Seen by Provider: 11:00 The patient is a 73-year-old white male who had undergone port placement yesterday per Dr. 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 It was done as an outpatient he felt well upon discharge from surgery Center but well eating evening meal around 6 he developed chills and fever describing Reiger's. He denied cough chest congestion dysuria or increased frequency abdominal pain diarrhea or any change in bowel habit. He felt short of breath with the onset of his Reiger's he got progressively worse overnight with confusion and presented to the emergency room with hypotension and tachycardia. Blood cultures were obtained peripherally as well as through the port and he was started on Zosyn and vancomycin. He reports roughly 10 days ago he was started on prednisone per his oncologist initially 60 mg he was told not to take his dose yesterday the day of the surgery and is been without it for the past 48 hours. He was recently started on Levaquin and Diflucan presumably due to very low ANC counts and received platelets yesterday prior to his surgery. It appears that he typically gets blood transfusions when he gets down into the 6 range when he is more symptomatic they weren't sure what platelet count when he is not bleeding that he has been getting platelet transfusions 4. Patient reports past history of right lower lobectomy for non- small cell lung cancer he completed adjuvant chemotherapy in 2012 and there's been no reported evidence for recurrence thus far. Subjective/Events-last exam Pt doing well today. Receiving transfusions ordered by Dr. Jin. Zosyn maintained for broad spectrum antibiotic coverage. Overall feels like he is stable today. Bowels are moving. Urinating is normal. Checked meds and labs. Reviewed Dr. Jin oncology note. Prognosis remains guarded. PCP is Dr. Caraballo. Review of Systems General: Fatigue Pulmonary: Dyspnea Focused Exam Lactate Level 01/03/19 12:06: Lactic Acid Level 3.37*H 01/04/19 10:15: Lactic Acid Level 3.51*H 01/04/19 12:25: Lactic Acid Level 3.24*H Time of Focused Exam: 11:10 Objective Exam Vital Signs Vital Signs Date Time Temp Pulse Resp B/P (MAP) Pulse Ox O2 Delivery O2 Flow Rate FiO2 01/05/19 19:49 98.4 90 18 130/65 (86) 94 Vapotherm 01/05/19 18:44 3.00 01/04/19 14:18 45 Capillary Refill : Less Than 3 SecondsLess Than 3 Seconds General Appearance: No Apparent Distress, WD/WN, Chronically ill HEENT: PERRL/EOMI Neck: Non Tender, Supple Respiratory: No Accessory Muscle Use, No Respiratory Distress, Crackles Cardiovascular: Regular Rate, Rhythm Gastrointestinal: Non Tender, Soft Extremity: Non Tender, No Calf Tenderness, No Pedal Edema Neurologic/Psychiatric: Alert, Oriented x3 Skin: Warm/Dry, Pallor Lymphatic: No Adenopathy Results/Procedures Lab Laboratory Tests 01/05/19 06:52 Patient resulted labs reviewed. Assessment/Plan Assessment and Plan Assess & Plan/Chief Complaint Assessment: Fever Pneumonia MDS Severe pancytopenia Transfusions during hospital stay Dyspnea Plan: Transfusion Volume overload Abx Monitor closely Critical Care Critically Ill Patient Diagnosis/Problems Diagnosis/Problems (1) Pneumonia Status: Acute Qualifiers: Pneumonia type: due to unspecified organism Laterality: unspecified laterality Lung location: unspecified part of lung Qualified Codes: J18.9 - Pneumonia, unspecified organism (2) Transfusion of blood during current hospitalization Status: Acute (3) Severe sepsis Status: Resolved Resolution Date/Time: 01/05/19 @ 20:08 (4) Myelodysplastic syndrome Status: Chronic (5) Pancytopenia Status: Chronic (6) COPD exacerbation Status: Acute Clinical Quality Measures DVT/VTE Risk/Contraindication: Risk Factor Score Per Nursin RFS Level Per Nursing on Admit: 4+=Very High MARLEN STRANGE DO January 05, 2019 10:54
[2019-01-05] MEDS: FAMOTIDINE 20 MG (PEPCID) TABLET PO SCH (11:18)
[2019-01-05] MEDS: PIPERACILLIN/TAZOBACTAM (BULK) 4.5 GM in NS (IVPB) 100 ML IV SCH ×3 (11:49→23:48)
--- NOTE | 2019-01-05 14:43 | Oncology Progress Note ---
Subjective Date Seen by a Provider: January 05, 2019 Time Seen by a Provider: 14:35 Subjective/Events-last exam Pt is slowly improving, less SOB, up to the chair. Good bowel movement. No black stool CXR today showed more right upper lung infiltration, also increasing interstitial markings. He is on O2 3 L NC. Sat 96%. He gained 9 kg since admission (bed scales). Since Lasix yesterday, his UOP 5400ml last 24hrs (-1900 negative balance) and 2000 today over last 14 hrs. I gave him one unit of RBC for Hb 6.3 with IV Lasix 40mg. Data Review Labs Laboratory Tests 01/05/19 06:52 Laboratory Tests 01/02/19 17:55: Hemoglobin 7.2L, Hematocrit 21L 01/03/19 01:25: Hemoglobin 6.9*L, Hematocrit 20*L, White Blood Count 1.5L, Red Blood Count 2.16L , Red Cell Distribution Width 19.7H, Platelet Count 24*L, Neutrophils (%) (Auto) 80H, Neutrophils # (Auto) 1.2L, Lymphocytes # (Auto) 0.3L, Potassium Level 3.3L, Chloride Level 114H, Carbon Dioxide Level 17L, Blood Urea Nitrogen 20H, Glucose Level 180H, Calcium Level 7.9L 01/03/19 08:08: Hemoglobin 7.8L, Hematocrit 22L, Lactic Acid Level 2.30*H 01/03/19 12:06: Hemoglobin 8.1L, Hematocrit 23L, Lactic Acid Level 3.37*H 01/03/19 18:00: Hemoglobin 7.8L, Hematocrit 22L 01/04/19 00:10: Hemoglobin 7.4L, Hematocrit 21L 01/04/19 06:40: Hemoglobin 7.3L, Hematocrit 21L, White Blood Count 2.0L, Red Blood Count 2.34L, Red Cell Distribution Width 18.7H, Platelet Count 28*L, Neutrophils # (Auto) 1.2L, Lymphocytes # (Auto) 0.5L, Potassium Level 3.3L, Chloride Level 113H, Carbon Dioxide Level 19L, Calcium Level 8.0L 01/04/19 10:15: Lactic Acid Level 3.51*H, B-Type Natriuretic Peptide 403.9H 01/04/19 12:25: Lactic Acid Level 3.24*H 01/04/19 14:04: 01/05/19 06:52: White Blood Count 1.2*L, Red Blood Count 2.07L, Hemoglobin 6.5*L, Hematocrit 19*L, Red Cell Distribution Width 18.4H, Platelet Count 22*L, Neutrophils (%) (Auto) 77H, Neutrophils # (Auto) 0.9L, Lymphocytes # (Auto) 0.2L, Potassium Level 3.2L, Blood Urea Nitrogen 19H, Glucose Level 148H, Calcium Level 8.0L, B- Type Natriuretic Peptide 175.9H CXR 01/05/19 Right IJ Port-A-Cath tip projects over the SVC. There is interstitial infiltrate in the right upper lung. There is right pleural effusion. Left lung is essentially clear. Impression: Right lung infiltrate with an effusion. No change compared to previous days exam. Physical Exam Vital Signs Vital Signs - First Documented 01/01/19 01/01/19 09:12 13:28 Temp 101.1 Pulse 138 Resp 22 B/P (MAP) 108/83 (91) Pulse Ox 100 O2 Delivery Nasal Cannula O2 Flow Rate 2.00 FiO2 28 Capillary Refill : Less Than 3 SecondsLess Than 3 Seconds Height, Weight, BMI Height: 6'0.00" Weight: 229lbs. 9.6oz. 104.486413fo; 29.4 BMI Method:Stated General Appearance: No Apparent Distress HEENT: PERRL/EOMI Neck: Non Tender, Supple Respiratory: No Accessory Muscle Use, No Respiratory Distress, Crackles Cardiovascular: Regular Rate, Rhythm, No JVD, Systolic Murmur Gastrointestinal: Non Tender, Soft Extremity: Non Tender, No Calf Tenderness, No Pedal Edema Neurologic/Psychiatric: Alert, Oriented x3 Focused Exam Lactate Level 01/03/19 12:06: Lactic Acid Level 3.37*H 01/04/19 10:15: Lactic Acid Level 3.51*H 01/04/19 12:25: Lactic Acid Level 3.24*H Time of Focused Exam: 11:10 Impression & Plan Impression & Plan 1. Fever, sepsis, RUL pneumonia. Blood cultures all negative day 2. Off pressor support. On IV antibiotics Zosyn and Vanco day 5; Diflucan day 4 and IV steroid treatment day 5. Overall improving clinically although CXR showed worse since it will be behind the clinical presentation. 2. MDS, pancytopenia, 7% blasts in the bone marrow, NOT in AML 11/29/18 bone marrow exam at [facility]. 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 His blood counts drop can also be related to the pneumonia. 3. Mod-severe aortic stenosis, ? candidate for surgical repair/correction. Pt had cardiac and thoracic surgery evaluation 12/28/18. He will have more tests including JANETT on 01/19/19 to decide if he does have a critical stenosis and would be benefit from the surgical repair. 4. h/o RLL non-small cell lung cancer, s/p surgical resection and chemotherapy cisplatin and gemcitabine 2012. Most recent CT scan of chest and abdomen 11/26/2018 showed NO recurrence of disease. 5. Severe SOB and hypoxia with minimal exertion O2 saturation drop from 95% sitting to 87% standing and 82% walking a few steps and near syncope. This is mostly likely related to his aortic stenosis, rather than anemia. 6. 80 pack year of smoking, stopped 2012 when he as diagnosed with lung cancer 7. h/o CAD but recent cardiac cath 10/2018 did not show any blockage or active lesion. 8. GERD, taking omeprazole at home. Now on Protonix 40mg daily. 9. Volume overload. treated with IV Lasix. Improving. Plan: 1. Continue current IV Zosyn and Vanco as well as Diflucan. Please give the antibiotics through the port for 5-7 days in hope to save the port. It seems that we can save the port. 2. Transfusion support to keep the Hb around 8. He got one unit of RBC today. Transfuse Plt only if the plt number below 20k; or actively bleeding regardless the plt number. Pt does not need frequent Hb/Hct from the MDS pancytopenia point of view. If concerning GI bleeding, then check stool occult blood. Pt is on Protonix and thumbs. 3. Pt is back on IV stress dose of solumedryl. When he is ready to be discharged, he needs to be on Prednisone 40mg/day until he sees me again in the clinic. I will then decide the steroid taper. The steroid taper will depend on his Plt number and clinical performance. 4. When he is ready to be discharge home, he needs to be on prophylactic antibiotics due to low WBC and ANC. Levaquin 750mg daily and Diflucan 150mg daily. He is allergic to Bactrim. 5. Dr Alfred to manage the volume overload issues. He may need more diuretics if his BP can tolerate. 6. I anticipate that he will improve more in next couple of days and possible home before the weekend. 7. Will f/u with you. Thank you. Clinical Quality Measures DVT/VTE Risk/Contraindication: Risk Factor Score Per Nursin RFS Level Per Nursing on Admit: 4+=Very High MAREN MUSE MD January 05, 2019 14:43
[2019-01-05] MEDS: FLUCONAZOLE 200 MG/100 ML 100 ML IV SCH (15:24)
[2019-01-05] MEDS ORDERED: PATIENT MAY USE OWN MED,SINGLE MED PO SCH (17:45)
[2019-01-05] MEDS: OMEPRAZOLE 20 MG (PriLOSEC) CAP NON-FORMULARY PO SCH (18:33)
[2019-01-05] MEDS: TEMAZEPAM 15 MG (RESTORIL) CAP PO SCH (20:28)
[2019-01-06] VITALS: BP 152/67
[2019-01-06] MEDS: VANCOMYCIN 1250 MG/NS 250 ML IVPB IV SCH ×4 (02:03→15:51)
[2019-01-06] MEDS: RT-ALBUTEROL/IPRATROPIUM 3 ML (DUONEB) VIAL INH SCH ×6 (02:44→22:46)
[2019-01-06] MEDS: methylPREDNISolone 40 MG/ML (Solu-MEDROL) VIAL IV SCH ×4 (03:36→21:53)
[2019-01-06 04:00] VITALS: BP 123/60
[2019-01-06] MEDS: MAGNESIUM 1 GM/100 ML IVPB 100 ML IV SCH (05:40)
[2019-01-06] MEDS: KCL 20 MEQ TAB (K-DUR) PO SCH (05:40)
[2019-01-06] MEDS: POTASSIUM CL 10MEQ/50ML IVPB 50 ML IV SCH (05:40)
[2019-01-06] MEDS: OMEPRAZOLE 20 MG (PriLOSEC) CAP NON-FORMULARY PO SCH ×2 (05:51→16:56)
--- NOTE | 2019-01-06 06:22 | Pulmonary Progress Note ---
Subjective Time Seen by a Provider: 06:22 Subjective/Events-last exam Pt is coughing up blood tinged sputum again. Sepsis Event Evaluation Height, Weight, BMI Height: 6'0.00" Weight: 229lbs. 9.6oz. 104.013692lh; 29.4 BMI Method:Stated Focused Exam Lactate Level 01/03/19 12:06: Lactic Acid Level 3.37*H 01/04/19 10:15: Lactic Acid Level 3.51*H 01/04/19 12:25: Lactic Acid Level 3.24*H Time of Focused Exam: 11:10 Exam Exam Vital Signs Date Time Temp Pulse Resp B/P (MAP) Pulse Ox O2 Delivery O2 Flow Rate FiO2 01/06/19 04:00 98.0 67 20 123/60 (81) 98 Vapotherm 45.00 20.00 01/06/19 02:44 98 NIV CPAP 5.00 01/06/19 01:00 79 01/06/19 00:00 98.0 72 20 152/67 (95) 92 Vapotherm 45.00 20.00 01/05/19 22:21 99 NIV CPAP 5.00 01/05/19 21:00 High Flow N/C 4.00 01/05/19 19:49 98.4 90 18 130/65 (86) 94 Vapotherm 01/05/19 19:00 97 01/05/19 18:44 94 Nasal Cannula 3.00 01/05/19 15:25 97.8 90 18 111/65 (80) 94 Vapotherm 45.00 20.00 01/05/19 15:05 97.8 90 18 111/65 94 Nasal Cannula 4.00 01/05/19 13:54 96 Nasal Cannula 3.00 01/05/19 13:00 72 01/05/19 12:12 97.2 78 18 112/58 Nasal Cannula 4.00 01/05/19 12:00 97.0 87 18 104/59 (74) 96 Vapotherm 01/05/19 11:50 97.0 87 18 104/59 96 Nasal Cannula 4.00 01/05/19 09:23 96 Nasal Cannula 4.00 01/05/19 08:05 High Flow N/C 4.00 01/05/19 08:00 96.5 67 20 144/68 (93) 98 Vapotherm 01/05/19 07:00 65 I & O 01/06/19 07:00 Intake Total 2710 ml Output Total 3150 ml Balance -440 ml Height & Weight Height: 6'0.00" Weight: 229lbs. 9.6oz. 104.505129ev; 29.4 BMI Method:Stated General Appearance: No Apparent Distress HEENT: PERRL/EOMI Neck: Non Tender, Supple Respiratory: No Accessory Muscle Use, No Respiratory Distress, Crackles Cardiovascular: Regular Rate, Rhythm Capillary Refill: Less Than 3 Seconds Extremity: Non Tender, No Calf Tenderness, No Pedal Edema Neurologic/Psychiatric: Alert, Oriented x3 Skin: Warm/Dry, Pallor Lymphatic: No Adenopathy Results Lab Laboratory Tests 01/04/19 06:40 01/05/19 06:52 Assessment/Plan Assessment/Plan SOB with pulmonary edema -repeat CXR this AM -Currently josé luis BiPAP QHS Vapotherm during the day. Titrate Fi02. . Will check CXR. -Park cultures -Vanco Zosyn -Blood tinged sputum -- probably secondary to thrombocytopenia Severe Anemia -S/p transfusions -Monitor Pancytopenia -monitor Metabolic lactic acidosis -Monitor -Repeat LOREN CISNEROS DO January 06, 2019 06:22
[2019-01-06 07:33] LABS: BASOPHILS # (AUTO) 0.1 10^3/uL (0.0-0.1); BASOPHILS % (AUTO) 4 % (0-10); EOSINOPHILS % (AUTO) 0 % (0-10); HEMATOCRIT 21 % (40-54); HEMOGLOBIN 7.3 G/DL (13.3-17.7); LYMPHOCYTES # (AUTO) 0.4 X 10^3 (1.0-4.0); LYMPHOCYTES % (AUTO) 22 % (12-44); MEAN CORPUSCULAR HEMOGLOBIN 32 PG (25-34); MEAN CORPUSCULAR HGB CONC 35 G/DL (32-36); MEAN CORPUSCULAR VOLUME 90 FL (80-99); MEAN PLATELET VOLUME 10.9 FL (7.4-10.4); MONOCYTES # (AUTO) 0.1 X 10^3 (0.0-1.0); MONOCYTES % (AUTO) 6 % (0-12); NEUTROPHILS # (AUTO) 1.2 X 10^3 (1.8-7.8); NEUTROPHILS % (AUTO) 69 % (42-75); RED CELL DISTRIBUTION WIDTH 17.8 % (10.0-14.5); WHITE BLOOD COUNT 1.7 10^3/uL (4.3-11.0)
[2019-01-06 07:36] LABS: PLATELET COUNT 16 10^3/uL (130-400)
[2019-01-06 07:45] LABS: BUN/CREATININE RATIO 28; CALCIUM 8.1 MG/DL (8.5-10.1); CARBON DIOXIDE 24 MMOL/L (21-32); CHLORIDE 104 MMOL/L (98-107); CREATININE SERUM 0.83 MG/DL (0.60-1.30); GFR ESTIMATED > 60; GLUCOSE 149 MG/DL (70-105); SODIUM 138 MMOL/L (135-145)
--- NOTE | 2019-01-06 07:49 | Diagnostic Imaging Report ---
INDICATION: Shortness of breath. Portable chest 7:32 AM FINDINGS: Right IJ Port-A-Cath tip projects over the SVC. There is interstitial infiltrate in the right midlung with a small right pleural effusion. Left lung is clear. IMPRESSION: Interstitial infiltrate right lung with small right pleural effusion. No change from previous day. Dictated by: Dictated on workstation # [id number]
[2019-01-06 08:05] VITALS: BP 123/58
[2019-01-06] MEDS: PIPERACILLIN/TAZOBACTAM (BULK) 4.5 GM in NS (IVPB) 100 ML IV SCH ×3 (08:53→23:53)
--- NOTE | 2019-01-06 09:24 | Oncology Progress Note ---
Subjective Date Seen by a Provider: January 06, 2019 Time Seen by a Provider: 09:38 Subjective/Events-last exam Pt is feeling better. Sitting up and reading newspaper. He still has cough with streak of blood but no worse. He is thinking of going home if possible. "I have been feeling good last two days. If I can feel as good as last two days, I think I can handle to go home and take care of myself with some help from my ." Pt is on physical therapy here. He had one unit of RBC transfusion yesterday for the Hb 6.5 and today Hb 7.3. It is a proper response to the transfusion. His Plt is 16k today. But I would NOT transfuse Plt at this point due to the Plts will carry a lot volume and possible push him to volume overload and pulmonary edema again. Once his infection clears and off antibiotics, his Plt will improve some. CXR today till showed right lung interstitial infiltration and small right pleural effusion. Data Review Labs Laboratory Tests 01/06/19 07:19 Laboratory Tests 01/03/19 12:06: Hemoglobin 8.1L, Hematocrit 23L, Lactic Acid Level 3.37*H 01/03/19 18:00: Hemoglobin 7.8L, Hematocrit 22L 01/04/19 00:10: Hemoglobin 7.4L, Hematocrit 21L 01/04/19 06:40: Hemoglobin 7.3L, Hematocrit 21L, White Blood Count 2.0L, Red Blood Count 2.34L, Red Cell Distribution Width 18.7H, Platelet Count 28*L, Neutrophils # (Auto) 1.2L, Lymphocytes # (Auto) 0.5L, Potassium Level 3.3L, Chloride Level 113H, Carbon Dioxide Level 19L, Calcium Level 8.0L 01/04/19 10:15: Lactic Acid Level 3.51*H, B-Type Natriuretic Peptide 403.9H 01/04/19 12:25: Lactic Acid Level 3.24*H 01/04/19 14:04: 01/05/19 06:52: B-Type Natriuretic Peptide 175.9H, White Blood Count 1.2*L, Red Blood Count 2.07L, Hemoglobin 6.5*L, Hematocrit 19*L, Red Cell Distribution Width 18.4H, Platelet Count 22*L, Neutrophils (%) (Auto) 77H, Neutrophils # (Auto) 0.9L, Lymphocytes # (Auto) 0.2L, Potassium Level 3.2L, Blood Urea Nitrogen 19H, Glucose Level 148H, Calcium Level 8.0L 01/06/19 07:19: White Blood Count 1.7L, Red Blood Count 2.32L, Hemoglobin 7.3L, Hematocrit 21L, Red Cell Distribution Width 17.8H, Platelet Count 16*L, Mean Platelet Volume 10.9H, Neutrophils # (Auto) 1.2L, Lymphocytes # (Auto) 0.4L, Potassium Level 3.0L, Blood Urea Nitrogen 23H, Glucose Level 149H, Calcium Level 8.1L Physical Exam Vital Signs Vital Signs - First Documented 01/01/19 01/01/19 09:12 13:28 Temp 101.1 Pulse 138 Resp 22 B/P (MAP) 108/83 (91) Pulse Ox 100 O2 Delivery Nasal Cannula O2 Flow Rate 2.00 FiO2 28 Capillary Refill : Less Than 3 SecondsLess Than 3 Seconds Height, Weight, BMI Height: 6'0.00" Weight: 228lbs. 2.0oz. 103.096018zb; 29.4 BMI Method:Stated General Appearance: No Apparent Distress HEENT: PERRL/EOMI Neck: Non Tender, Supple Respiratory: No Accessory Muscle Use, No Respiratory Distress, Crackles Cardiovascular: Regular Rate, Rhythm, Systolic Murmur Gastrointestinal: Non Tender, Soft Extremity: Non Tender, No Calf Tenderness, No Pedal Edema Neurologic/Psychiatric: Oriented x3 Focused Exam Lactate Level 01/03/19 12:06: Lactic Acid Level 3.37*H 01/04/19 10:15: Lactic Acid Level 3.51*H 01/04/19 12:25: Lactic Acid Level 3.24*H Time of Focused Exam: 11:10 Impression & Plan Impression & Plan 1. Fever, sepsis, RUL pneumonia. Blood cultures all negative day 2. Off pressor support. On IV antibiotics Zosyn and Vanco day 6; Diflucan day 5 and IV steroid treatment day 6. Overall improving clinically. 2. 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 Thrombocytopenia on steroid trial. His blood counts drop can also be related to the pneumonia. 3. Mod-severe aortic stenosis, ? candidate for surgical repair/correction. Pt had cardiac and thoracic surgery evaluation 12/28/18. He will have more tests including JANETT on 01/19/19 to decide if he does have a critical stenosis and would be benefit from the surgical repair. Because of this, he has been chronic fatigue and was on wheel chair/walker since 10/2018. 4. h/o RLL non-small cell lung cancer, s/p surgical resection and chemotherapy cisplatin and gemcitabine 2012. Most recent CT scan of chest and abdomen 11/26/2018 showed NO recurrence of disease. 5. Severe SOB and hypoxia with minimal exertion O2 saturation drop from 95% sitting to 87% standing and 82% walking a few steps and near syncope. This is mostly likely related to his aortic stenosis, rather than anemia. 6. 80 pack year of smoking, stopped 2012 when he as diagnosed with lung cancer 7. h/o CAD but recent cardiac cath 10/2018 did not show any blockage or active lesion. 8. GERD, taking omeprazole at home. Now on Protonix 40mg daily. 9. Volume overload. treated with IV Lasix. CXR still shows interstitial infiltra tion and right pleural effusion. However, clinically improving. Plan: 1. Continue current IV Zosyn and Vanco as well as Diflucan. Please give the antibiotics through the port for 5-7 days in hope to save the port. It seems that we can save the port. Dr. Castro to decide the antibiotics course. 2. Transfusion support to keep the Hb above 7. Transfuse Plt only if the plt number below 11k; or actively bleeding regardless the plt number. I would NOT transfuse Plt today due to risk of volume overload. Pt does not need frequent Hb/Hct from the MDS pancytopenia point of view. If co ncerning GI bleeding, then check stool occult blood. Pt is on Protonix and thumbs. 3. Pt is back on IV stress dose of solumedryl. When he is ready to be discharged, he needs to be on Prednisone 40mg/day until he sees me again in the clinic. I will then decide the steroid taper. The steroid taper will depend on his Plt number and clinical performance. He will come to cancer center 2x/wk for evaluation. 4. When he is ready to be discharge home, he needs to be on prophylactic antibiotics due to low WBC and ANC. Levaquin 750mg daily and Diflucan 150mg daily. He is allergic to Bactrim. 5. Dr Alfred to manage the volume overload issues. 6. I anticipate that he will improve more in next couple of days and possible home before the weekend. 7. Will f/u with you. Thank you. Clinical Quality Measures DVT/VTE Risk/Contraindication: Risk Factor Score Per Nursin RFS Level Per Nursing on Admit: 4+=Very High MAREN MUSE MD January 06, 2019 09:24
--- NOTE | 2019-01-06 09:58 | Progress Note-Hospitalist ---
Subjective HPI/CC On Admission Date Seen by Provider: January 06, 2019 Time Seen by Provider: 09:00 The patient is a 73-year-old white male who had undergone port placement yesterday per Dr. 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 It was done as an outpatient he felt well upon discharge from surgery Center but well eating evening meal around 6 he developed chills and fever describing Reiger's. He denied cough chest congestion dysuria or increased frequency abdominal pain diarrhea or any change in bowel habit. He felt short of breath with the onset of his Reiger's he got progressively worse overnight with confusion and presented to the emergency room with hypotension and tachycardia. Blood cultures were obtained peripherally as well as through the port and he was started on Zosyn and vancomycin. He reports roughly 10 days ago he was started on prednisone per his oncologist initially 60 mg he was told not to take his dose yesterday the day of the surgery and is been without it for the past 48 hours. He was recently started on Levaquin and Diflucan presumably due to very low ANC counts and received platelets yesterday prior to his surgery. It appears that he typically gets blood transfusions when he gets down into the 6 range when he is more symptomatic they weren't sure what platelet count when he is not bleeding that he has been getting platelet transfusions 4. Patient reports past history of right lower lobectomy for non- small cell lung cancer he completed adjuvant chemotherapy in 2012 and there's been no reported evidence for recurrence thus far. Subjective/Events-last exam Pt feels better today Wants to walk around so I ordered PT and OT Placed an order for inpatient rehab Conferred with Dr. Jin Cough is productive with streaking of blood Platelet count and neutropenia continues but everything is stable May need swing bed at [facility] or [facility] where Dr. Caraballo is PCP Overall feels much better Bowels are moving well Urinating well Review of Systems General: Fatigue Pulmonary: Dyspnea Focused Exam Lactate Level 01/04/19 10:15: Lactic Acid Level 3.51*H 01/04/19 12:25: Lactic Acid Level 3.24*H Time of Focused Exam: 11:10 Objective Exam Vital Signs Vital Signs Date Time Temp Pulse Resp B/P (MAP) Pulse Ox O2 Delivery O2 Flow Rate FiO2 01/06/19 19:54 97.6 82 20 144/67 (92) 92 Nasal Cannula 2.00 01/04/19 14:18 45 Capillary Refill : Less Than 3 SecondsLess Than 3 Seconds General Appearance: No Apparent Distress, WD/WN, Chronically ill HEENT: PERRL/EOMI Neck: Non Tender, Supple Respiratory: Chest Non Tender, Lungs Clear, Normal Breath Sounds, No Accessory Muscle Use, No Respiratory Distress Cardiovascular: Regular Rate, Rhythm, No Edema Gastrointestinal: Non Tender, Soft Extremity: Non Tender, No Calf Tenderness, No Pedal Edema Neurologic/Psychiatric: Alert, Oriented x3 Skin: Warm/Dry, Pallor Lymphatic: No Adenopathy Results/Procedures Lab Laboratory Tests 01/06/19 07:19 Patient resulted labs reviewed. Assessment/Plan Assessment and Plan Assess & Plan/Chief Complaint Assessment: Fever Pneumonia MDS Severe pancytopenia Transfusions during hospital stay Dyspnea Plan: Transfusion Volume overload Abx Monitor closely SB Critical Care Critically Ill Patient Diagnosis/Problems Diagnosis/Problems (1) Pneumonia Status: Acute Qualifiers: Pneumonia type: due to unspecified organism Laterality: unspecified laterality Lung location: unspecified part of lung Qualified Codes: J18.9 - Pneumonia, unspecified organism (2) Transfusion of blood during current hospitalization Status: Acute (3) Severe sepsis Status: Resolved Resolution Date/Time: 01/05/19 @ 20:08 (4) Myelodysplastic syndrome Status: Chronic (5) Pancytopenia Status: Chronic (6) COPD exacerbation Status: Acute Clinical Quality Measures DVT/VTE Risk/Contraindication: Risk Factor Score Per Nursin RFS Level Per Nursing on Admit: 4+=Very High MARLEN STRANGE DO January 06, 2019 09:58
--- NOTE | 2019-01-06 10:47 | NUR ---
IRF Evaluation Order received to evaluate patient for the ARU. Upon review of PT Eval and PT Progress Note, prior to hospitalization, the patient was modified independent with ambulation and transfers, with a SPC. Currently, the patient is supervision with ambulation (10x2, SPC) and transfers; therefore, the patient does not meet criteria for admission, as he is functioning near his prior level. Thank you for this referral.
[2019-01-06 12:00] VITALS: BP 148/68
--- NOTE | 2019-01-06 14:05 | Physical Therapy Daily Note ---
PT Daily Note-Current Subjective Patient in recliner pre tx, agrees to PT, has no complaints of pain. Appearance Patient in recliner post tx with nurse call, phone, tray, in room. Patient is doing well enough that he should be able to ambulate in his room and go to the bathroom by himself if he can keep track of his O2 line. Mental Status Patient Orientation: Person, Place, Situation Attachments: Oxygen Transfers Therapy Code Descriptions/Definitions Functional [place] Measure: 0=Not Assessed/NA 4=Minimal Assistance 1=Total Assistance 5=Supervision or Setup 2=Maximal Assistance 6=Modified [place] 3=Moderate Assistance 7=Complete Pettis Therapy Quality Codes: 6 Independent with activity with or without an assistive device 5 Patient requires set up or clean up by helper. Patient completes activity by themselves 4 Supervision or touching assist (CGA). [place] provide cues , steadying assist 3 The helper provides less than half the effort to complete the activity 2 The helper provides more than half the effort to complete the activity 1 Dependent. The helper does all the effort to complete an activity 7 Patient refused to complete or attempt activity 9 The patient did not perform the activity before the current illness or inj ury 88 Not attempted due to Medical conditions or safety concerns Transfers (B, C, W/C) (FIM): 6 Sit to/from Stand: 6 Bed to/from Chair: 6 Weight Bearing Full Weight Bearing Full Weight Bearing Gait Training Gait (FIM): 5 Distance: 200' Gait Level of Assist: 5 Gait Persons Needed: 1 Gait Assistive Device: Cane Single Point No LOB or unsteadiness Exercises Seated Therapy Exercises: Ankle pumps, Long arc quads Seated Reps: 20 Treatments ambulation, LE exercise Assessment Current Status: Fair Progress improving endurance but still gets SOB with ambulation and needs cues for purse lip breathing PT Residential Goals Freight Forwarder Goals PT Residential Goals Time Frame: January 07, 2019 Transfers (B,C,W/C) (FIM): 6 Gait (FIM): 6 Gait distance (FIM): 3=150 ft Distance: 150 Gait Level of Assist: 6 Gait Assistive Device: Cane Single Point Stairs (FIM): 5 # of Steps: 5 Stairs Level Of Assist: 6 PT Plan Problem List Problem List: Activity Tolerance, Functional Strength, Safety, Balance, Gait, Transfer Treatment/Plan Treatment Plan: Continue Plan of Care Treatment Plan: Bed Mobility, Education, Functional Activity Julia, Functional Strength, Group Therapy, Gait Treatment Duration: January 07, 2019 Frequency: 6 times per week Estimated Hrs Per Day: .25 hour per day Patient and/or Family Agrees t: Yes Safety Risks/Education Patient Education: Gait Training, Transfer Techniques, Correct Positioning, Safety Issues Teaching Recipient: Patient Teaching Methods: Demonstration, Discussion Response to Teaching: Reinforcement Needed Time/GCodes Time In: 1345 Time Out: 1358 Total Billed Treatment Time: 13 Total Billed Treatment 1 visit FA DONY KYLE PT January 06, 2019 14:05
--- NOTE | 2019-01-06 15:30 | Occupational Therapy Eval ---
OT Evaluation-General/PLF Medical Diagnosis Admission Date January 01, 2019 at 11:02 Medical Diagnosis: sepsis Onset Date: January 03, 2019 Therapy Diagnosis Therapy Diagnosis: impaired ADLs and mobility Height/Weight Height (Feet): 6 Height (Inches): 0.00 Weight (Pounds): 228 Weight (Ounces): 2.0 Precautions Precautions/Isolations: Protective Isolation Safety Interventions: None Referral Referral Reason: Activity Tolerance, Self Care, Evaluation/Treatment, [facility] Medical History Additional Medical History Surgeries: Tonsillectomy Cardiac: Hypertension HEENT: Cataract Cancer: Lung Did You Recieve Any Treatments: Yes What Type of Treatment Did You: Chemotherapy, Surgical Intervention History of Blood Disorders: Yes (anemia, recent blood transfusion) Current History per H&P : "the patient is a 73-year-old white male who had undergone port placement yesterday per Dr. 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 It was done as an outpatient he felt well upon discharge from surgery Center but well eating evening meal around 6 he developed chills and fever describing Reiger's. He denied cough chest congestion dysuria or increased frequency abdominal pain diarrhea or any change in bowel habit. He felt short of breath with the onset of his Reiger's he got progressively worse overnight with confusion and presented to the emergency room with hypotension and tachycardia. Blood cultures were obtained peripherally as well as through the port and he was started on Zosyn and vancomycin. He reports roughly 10 days ago he was started on prednisone per his oncologist initially 60 mg he was told not to take his dose yesterday the day of the surgery and is been without it for the past 48 hours. He was recently started on Levaquin and Diflucan presumably due to very low ANC counts and received platelets yesterday prior to his surgery. It appears that he typically gets blood transfusions when he gets down into the 6 range when he is more symptomatic they weren't sure what platelet count when he is not bleeding that he has been getting platelet transfusions 4. Patient reports past history of right lower lobectomy for non-small cell lung cancer he completed adjuvant chemotherapy in 2012 and there's been no reported evidence for recurrence thus far." Reviewed History: Yes Social History Home: Single Level Current Living Status: Spouse ADL-Prior Level of Function Therapy Code Descriptions/Definitions Functional [place] Measure: 0=Not Assessed/NA 4=Minimal Assistance 1=Total Assistance 5=Supervision or Setup 2=Maximal Assistance 6=Modified [place] 3=Moderate Assistance 7=Complete [place] Therapy Quality Codes: 6 Independent with activity with or without an assistive device 5 Patient requires set up or clean up by helper. Patient completes activity by themselves 4 Supervision or touching assist (CGA). [place] provide cues , steadying assist 3 The helper provides less than half the effort to complete the activity 2 The helper provides more than half the effort to complete the activity 1 Dependent. The helper does all the effort to complete an activity 7 Patient refused to complete or attempt activity 9 The patient did not perform the activity before the current illness or injury 88 Not attempted due to Medical conditions or safety concerns Functional Abilities and Goals: Independent: Patient completed the activities by him/herself, with or without an assistive device, with no assistance from a helper. Needed Some Help: Patient needed partial assistance from another person to complete activities. Dependent: A helper completed the activities for the patient. Unknown: Not Applicable: ADL PLOF Comments pt reports independent PLOF with ADLs/ IADLs, and functional mobility with use of SPC Self Care: Independent (SPC) Functional Cognition: Independent DME/Equipment: Bath Chair, Shower Drive Self: Yes OT Current Status Subjective pt sitting in recliner chair upon OT Arrival in no apparent distress. pt agreed to OT evaluation session. Pain Numeric Pain Scale: 0-No Pain Mental Status/Objective Patient Orientation: Person, Place, Time, Situation, Normal For Age Attachments: Oxygen Current Glasses/Contacts: Yes Hearing Aids: No Dentures/Partials: No Hand Dominance: Right Upper Extremity ROM WFL Upper Extremity Coordination WFL Upper Extremity Sensation WFL Upper Extremity Strength WFL ADL-Treatment Therapy Code Descriptions/Definitions Functional [place] Measure: 0=Not Assessed/NA 4=Minimal Assistance 1=Total Assistance 5=Supervision or Setup 2=Maximal Assistance 6=Modified [place] 3=Moderate Assistance 7=Complete [place] Therapy Quality Codes: 6 Independent with activity with or without an assistive device 5 Patient requires set up or clean up by helper. Patient completes activity by themselves 4 Supervision or touching assist (CGA). [place] provide cues , steadying assist 3 The helper provides less than half the effort to complete the activity 2 The helper provides more than half the effort to complete the activity 1 Dependent. The helper does all the effort to complete an activity 7 Patient refused to complete or attempt activity 9 The patient did not perform the activity before the current illness or injury 88 Not attempted due to Medical conditions or safety concerns Eating (FIM): 7 pt required SBA fro functional transfers secondary to O2 line management. pt required VC for energy conservation techniques. noted SOB with tasks. pt perform LB dressing, toileting, grooming with SBA. Education OT Patient Education: Energy conservation, Progress toward Goal/Update tx plan, Purpose of tx/functional activities, Safety issues Teaching Recipient: Patient Teaching Methods: Demonstration, Discussion Response to Teaching: Verbalize Understanding, Return Demonstration OT Short Term Goals Short Term Goals 1=Demonstrate adherence to instructed precautions during ADL tasks. 2=Patient will verbalize/demonstrate understanding of assistive devices/modifications for ADL. 3=Patient will improve strength/tolerance for activity to enable patient to perform ADL's. OT Detention Goals Detention Goals Grooming(FIM): 7 Bathing(FIM): 6 Upper Body Dressing(FIM): 6 Lower Body Dressing(FIM): 6 Toileting(FIM): 6 Transfers (B,C,W/C) (FIM): 6 Toilet/Commode Transfer(FIM): 6 Additional Goals: 1-Demonstrate ADL Tasks, 2-Verbalize Understanding, 3- ImproveStrength/Julia 1=Demonstrate adherence to instructed precautions during ADL tasks. 2=Patient will verbalize/demonstrate understanding of assistive devices/modifications for ADL. 3=Patient will improve strength/tolerance for activity to enable patient to perform ADL's. OT Education/Plan Problem List/Assessment Assessment: Decreased Activ Tolerance, Decreased Safety Aware, Impaired Funct Balance, Impaired I ADL's pt presents with functional limitations affecting areas of ADLS/ functional transfers. pt would benefit from OT services to increase independence with ADLS/ functional transfers. Discharge Recommendations Plan/Recommendations: Continue POC Therapy D/C Recommendations: Home w/ Family Support Equpiment Recommendations-D/C: None Barriers to Progress limited activity tolerance Target Placement home with spouse Treatment Plan/Plan of Care Treatment,Training & Education: Yes Patient would benefit from OT for education, treatment and training to promote independence in ADL's, mobility, safety and/or upper extremity function for ADL's. Plan of Care: ADL Retraining, Functional Mobility, Group Exercise/Act as Ind, UE Funct Exercise/Act Treatment Duration: Jan 13, 2019 Frequency: 5 times per week Estimated Hrs Per Day: .25 hour per day Agreement: Yes Rehab Potential: Good Time/GCodes Start Time: 13:00 Stop Time: 13:15 Billed Treatment Time EVL 15 minutes, DANY MYERS OT January 06, 2019 15:30
[2019-01-06 15:46] VITALS: BP 133/72
[2019-01-06] MEDS: FLUCONAZOLE 200 MG/100 ML 100 ML IV SCH (15:51)
--- NOTE | 2019-01-06 16:47 | NUR ---
Report off to SANDRO Symth who is to assume care of patient at this time.
[2019-01-06 19:54] VITALS: BP 144/67
[2019-01-06] MEDS: TEMAZEPAM 15 MG (RESTORIL) CAP PO SCH (20:13)
[2019-01-07] VITALS (9 sets, daily range): BP systolic 120–160; BP diastolic 56–80
[2019-01-07] MEDS: VANCOMYCIN 1250 MG/NS 250 ML IVPB IV SCH ×2 (01:42)
[2019-01-07] MEDS: RT-ALBUTEROL/IPRATROPIUM 3 ML (DUONEB) VIAL INH SCH ×3 (02:34→11:00)
[2019-01-07] MEDS: methylPREDNISolone 40 MG/ML (Solu-MEDROL) VIAL IV SCH ×2 (04:07→10:39)
[2019-01-07] MEDS: MAGNESIUM 1 GM/100 ML IVPB 100 ML IV SCH (06:12)
[2019-01-07] MEDS: OMEPRAZOLE 20 MG (PriLOSEC) CAP NON-FORMULARY PO SCH (06:12)
[2019-01-07] MEDS: KCL 20 MEQ TAB (K-DUR) PO SCH (06:13)
[2019-01-07] MEDS: POTASSIUM CL 10MEQ/50ML IVPB 50 ML IV SCH (06:13)
--- NOTE | 2019-01-07 06:17 | Pulmonary Progress Note ---
Subjective Time Seen by a Provider: 07:04 Subjective/Events-last exam Pt is still coughing up blood tinged sputum. Sepsis Event Evaluation Height, Weight, BMI Height: 6'0.00" Weight: 228lbs. 2.0oz. 103.296088uv; 29.4 BMI Method:Stated Focused Exam Lactate Level 01/04/19 10:15: Lactic Acid Level 3.51*H 01/04/19 12:25: Lactic Acid Level 3.24*H Time of Focused Exam: 11:10 Exam Exam Vital Signs Date Time Temp Pulse Resp B/P (MAP) Pulse Ox O2 Delivery O2 Flow Rate FiO2 01/07/19 03:59 97.5 62 18 120/58 (78) 92 NIV CPAP 2.00 01/07/19 03:00 65 01/07/19 02:35 97 NIV CPAP 2.00 01/07/19 01:00 43 01/07/19 00:35 98.2 67 20 132/63 (86) 96 NIV CPAP 01/06/19 22:46 98 NIV CPAP 5.00 01/06/19 21:00 Nasal Cannula 2.00 01/06/19 19:54 97.6 82 20 144/67 (92) 92 Nasal Cannula 2.00 01/06/19 19:00 72 01/06/19 18:58 95 Nasal Cannula 2.00 01/06/19 15:46 98.0 95 20 133/72 (92) 95 Nasal Cannula 2.00 01/06/19 14:45 95 Nasal Cannula 2.00 01/06/19 13:00 71 01/06/19 12:00 97.4 68 20 148/68 (94) 94 Nasal Cannula 2.00 01/06/19 08:05 98.2 70 22 123/58 (79) 91 Nasal Cannula 2.00 01/06/19 08:00 High Flow N/C 4.00 01/06/19 07:00 80 01/06/19 06:43 98 Nasal Cannula 3.00 I & O 01/07/19 07:00 Intake Total 1502.5 ml Output Total 1000 ml Balance 502.5 ml Height & Weight Height: 6'0.00" Weight: 228lbs. 2.0oz. 103.859023on; 29.4 BMI Method:Stated General Appearance: No Apparent Distress, WD/WN, Chronically ill HEENT: PERRL/EOMI Neck: Non Tender, Supple Respiratory: Chest Non Tender, Lungs Clear, Normal Breath Sounds, No Accessory Muscle Use, No Respiratory Distress Cardiovascular: Regular Rate, Rhythm, No Edema Capillary Refill: Less Than 3 Seconds Extremity: Non Tender, No Calf Tenderness, No Pedal Edema Neurologic/Psychiatric: Alert, Oriented x3 Skin: Warm/Dry, Pallor Lymphatic: No Adenopathy Results Lab Laboratory Tests 01/05/19 06:52 01/06/19 07:19 Assessment/Plan Assessment/Plan SOB with pulmonary edema -Currently josé luis BiPAP QHS Vapotherm during the day. Titrate Fi02. . Will check CXR. -Madrigal cultures -Vanco - Will D/C MRSA swab and madrigal cultures are negative. - Zosyn Persistent blood streaked sputum - probably secondary to thrombocytopenia -Check CTA of chest -transfuse Platelets Hypokalemia -Replace Severe Anemia -S/p transfusions -Monitor Pancytopenia -monitor Metabolic lactic acidosis -Monitor -Repeat LOREN CISNEROS DO January 07, 2019 06:17
[2019-01-07 06:27] LABS: BASOPHILS % (AUTO) 3 % (0-10); EOSINOPHILS % (AUTO) 0 % (0-10); HEMATOCRIT 21 % (40-54); HEMOGLOBIN 7.3 G/DL (13.3-17.7); LYMPHOCYTES # (AUTO) 0.3 X 10^3 (1.0-4.0); LYMPHOCYTES % (AUTO) 21 % (12-44); MEAN CORPUSCULAR HEMOGLOBIN 31 PG (25-34); MEAN CORPUSCULAR HGB CONC 34 G/DL (32-36); MEAN CORPUSCULAR VOLUME 91 FL (80-99); MONOCYTES % (AUTO) 3 % (0-12); NEUTROPHILS # (AUTO) 0.9 X 10^3 (1.8-7.8); NEUTROPHILS % (AUTO) 72 % (42-75); RED CELL DISTRIBUTION WIDTH 17.7 % (10.0-14.5)
[2019-01-07 06:31] LABS: WHITE BLOOD COUNT 1.2 10^3/uL (4.3-11.0)
[2019-01-07 06:32] LABS: PLATELET COUNT 11 10^3/uL (130-400)
--- NOTE | 2019-01-07 06:34 | NUR ---
DR CHRISTIAN NOTIFIED OF CRITICAL PLATELET AND CRITICAL WBC RESULTS. ORDER RECEIVED TO TRANSFUSE TWO UNITS OF PLATELETS.
[2019-01-07 06:46] LABS: BUN/CREATININE RATIO 24; CALCIUM 8.2 MG/DL (8.5-10.1); CARBON DIOXIDE 23 MMOL/L (21-32); CHLORIDE 105 MMOL/L (98-107); CREATININE SERUM 0.86 MG/DL (0.60-1.30); GFR ESTIMATED > 60; GLUCOSE 136 MG/DL (70-105); POTASSIUM 3.1 MMOL/L (3.6-5.0); SODIUM 140 MMOL/L (135-145)
[2019-01-07] MEDS ORDERED: KCL 20 MEQ TAB (K-DUR) PO ONE (07:15)
[2019-01-07] MEDS ORDERED: HOLD METFORMIN - RECEIVED CONTRAST 20 ML VIAL IV SCH (07:30)
[2019-01-07] MEDS ORDERED: IOHEXOL 350 MG/ML 150 ML (OMNIPAQUE 350) VIAL IV ONE (07:30)
[2019-01-07] MEDS ORDERED: NS 100 ML (IVPB) BAG IV ONE (07:30)
--- NOTE | 2019-01-07 09:19 | Physical Therapy Daily Note ---
PT Daily Note-Current Subjective Patient in recliner pre tx, agrees to PT, has no complaints of pain. Appearance Patient in recliner post tx, has nurse call, phone, tray, all needs met. O2 was 93% immediately after ambulation. Mental Status Patient Orientation: Person, Place, Situation Attachments: Oxygen, IV Transfers Therapy Code Descriptions/Definitions Functional [place] Measure: 0=Not Assessed/NA 4=Minimal Assistance 1=Total Assistance 5=Supervision or Setup 2=Maximal Assistance 6=Modified [place] 3=Moderate Assistance 7=Complete [place] Therapy Quality Codes: 6 Independent with activity with or without an assistive device 5 Patient requires set up or clean up by helper. Patient completes activity by themselves 4 Supervision or touching assist (CGA). [place] provide cues , steadying assist 3 The helper provides less than half the effort to complete the activity 2 The helper provides more than half the effort to complete the activity 1 Dependent. The helper does all the effort to complete an activity 7 Patient refused to complete or attempt activity 9 The patient did not perform the activity before the current illness or injury 88 Not attempted due to Medical conditions or safety concerns Transfers (B, C, W/C) (FIM): 6 Sit to/from Stand: 6 Weight Bearing Full Weight Bearing Full Weight Bearing Gait Training Gait (FIM): 5 Distance: 300' Gait Level of Assist: 5 Gait Persons Needed: 1 Gait Assistive Device: Cane Single Point slow ambulation, no LOB Treatments ambulation Assessment Current Status: Fair Progress improving endurance, one standing rest break, cues for purse lip breathing PT Penitentiary Goals Penitentiary Goals PT Penitentiary Goals Time Frame: January 07, 2019 Transfers (B,C,W/C) (FIM): 6 Gait (FIM): 6 Gait distance (FIM): 3=150 ft Distance: 150 Gait Level of Assist: 6 Gait Assistive Device: Cane Single Point Stairs (FIM): 5 # of Steps: 5 Stairs Level Of Assist: 6 PT Plan Problem List Problem List: Activity Tolerance, Functional Strength, Safety, Balance, Gait, Transfer Treatment/Plan Treatment Plan: Continue Plan of Care Treatment Plan: Bed Mobility, Education, Functional Activity Julia, Functional Strength, Group Therapy, Gait Treatment Duration: January 07, 2019 Frequency: 6 times per week Estimated Hrs Per Day: .25 hour per day Patient and/or Family Agrees t: Yes Safety Risks/Education Patient Education: Gait Training, Transfer Techniques, Correct Positioning, Safety Issues Teaching Recipient: Patient Teaching Methods: Demonstration, Discussion Response to Teaching: Reinforcement Needed Time/GCodes Time In: 0856 Time Out: 910 Total Billed Treatment Time: 15 Total Billed Treatment 1 visit GT 15' DONY LOZOYA PT January 07, 2019 09:19
[2019-01-07] MEDS: PIPERACILLIN/TAZOBACTAM (BULK) 4.5 GM in NS (IVPB) 100 ML IV SCH (09:39)
[2019-01-07] MEDS ORDERED: FUROSEMIDE 40 MG/4 ML INJ (LASIX) IVP NR (10:30)
[2019-01-07] MEDS ORDERED: LEVO750T39 PO (10:38)
[2019-01-07] MEDS ORDERED: PRED5TAB PO (10:38)
[2019-01-07] MEDS ORDERED: FLUC150T2 PO (10:38)
--- NOTE | 2019-01-07 10:38 | NUR ---
Important Message from Medicare presented, reviewed, signed and placed in patient chart. Patient and voiced no intention to appeal and deny any needs or further questions at this time.
--- NOTE | 2019-01-07 10:39 | Discharge Summary-Hospitalist ---
Diagnosis/Chief Complaint Date of Admission January 01, 2019 at 11:02 Date of Discharge Discharge Date: January 07, 2019 Admission Diagnosis 1. Severe sepsis with hypotensive shock requiring pressor support. Patient is doing better currently but prognosis is poor. This was discussed with family members. Considering pancytopenia we'll continue Zosyn and vancomycin and will add IV Diflucan. Dr. Zafar has been consulted and will defer to her for transfusion therapy. 2. The patient has been on rather high-dose oral steroids for at least 10 days for his report will add hydrocortisone stress dose for now as there may be a component of adrenal insufficiency will add a random cortisol level. 3. 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 Discharge Diagnosis (1) Pneumonia Status: Acute (2) Transfusion of blood during current hospitalization Status: Acute (3) Severe sepsis Status: Resolved (4) Myelodysplastic syndrome Status: Chronic (5) Pancytopenia Status: Chronic (6) COPD exacerbation Status: Acute Discharge Summary Discharge Physical Exam Allergies: Coded Allergies: sulfamethoxazole (Verified Allergy, Unknown, Hives, 12/30/18) trimethoprim (Verified Allergy, Unknown, Hives, 12/30/18) Vitals & I&Os Vital Signs Date Time Temp Pulse Resp B/P (MAP) Pulse Ox O2 Delivery O2 Flow Rate FiO2 01/07/19 11:00 86 Nasal Cannula 2.00 01/07/19 10:20 97.5 80 20 137/80 01/04/19 14:18 45 General Appearance: No Apparent Distress, WD/WN, Chronically ill Respiratory: Chest Non Tender, Lungs Clear, Normal Breath Sounds, No Accessory Muscle Use, No Respiratory Distress Cardiovascular: Regular Rate, Rhythm, No Edema, No Gallop, No JVD, No Murmur, Normal Peripheral Pulses Neurologic/Psychiatric: Alert, Oriented x3, No Motor/Sensory Deficits, Normal Mood/Affect Hospital Course Was the Problem List Reviewed?: Yes Admit H&P per Dr Hull: The patient is a 73-year-old white male who had undergone port placement yesterday per Dr. 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 It was done as an outpatient he felt well upon discharge from surgery Center but well eating evening meal around 6 he developed chills and fever describing Reiger's. He denied cough chest congestion dysuria or increased frequency abdominal pain diarrhea or any change in bowel habit. He felt short of breath with the onset of his Reiger's he got progressively worse overnight with confusion and presented to the emergency room with hypotension and tachycardia. Blood cultures were obtained peripherally as well as through the port and he was started on Zosyn and vancomycin. He reports roughly 10 days ago he was started on prednisone per his oncologist initially 60 mg he was told not to take his dose yesterday the day of the surgery and is been without it for the past 48 hours. He was recently started on Levaquin and Diflucan presumably due to very low ANC counts and received platelets yesterday prior to his surgery. It appears that he typically gets blood transfusions when he gets down into the 6 range when he is more symptomatic they weren't sure what platelet count when he is not bleeding that he has been getting platelet transfusions 4. Patient reports past history of right lower lobectomy for non- small cell lung cancer he completed adjuvant chemotherapy in 2013 and there's been no reported evidence for recurrence thus far. Hospital course: Patient had an uneventful hospital course although sleepy and half of it was in the ICU. Dr. Alfred was consulted for critical illness patient was placed on empiric antibiotics and oncology was consulted ordering multiple transfusions with platelets. Overall patient was able to stabilize and was eventually transferred down to fourth floor. Patient was maintained on oxygen as he uses at home. Patient was evaluated for swing bed but on day of discharge she felt strong enough and I obtained formal recommendations from Dr. Jin regarding Levaquin prednisone and Diflucan at discharge and he was deemed stable for discharge improved enough to have no difficulties with the discharge plan to home with his . Labs (last 24 hrs) Laboratory Tests 01/06/19 12:11: Lab Scanned Report Transfusion Reaction Form 01/07/19 06:15: White Blood Count 1.2*L, Red Blood Count 2.34L, Hemoglobin 7.3L, Hematocrit 21L, Mean Corpuscular Volume 91, Mean Corpuscular Hemoglobin 31, Mean Corpuscular Hemoglobin Concent 34, Red Cell Distribution Width 17.7H, Platelet Count 11*L, Mean Platelet Volume , Neutrophils (%) (Auto) 72, Lymphocytes (%) (Auto) 21, Monocytes (%) (Auto) 3, Eosinophils (%) (Auto) 0, Basophils (%) (Auto) 3, Neutrophils # (Auto) 0.9L, Lymphocytes # (Auto) 0.3L, Monocytes # (Auto) 0.0, Eosinophils # (Auto) 0.0, Basophils # (Auto) 0.0, Sodium Level 140, Potassium Level 3.1L, Chloride Level 105, Carbon Dioxide Level 23, Anion Gap 12, Blood Urea Nitrogen 21H, Creatinine 0.86, Estimat Glomerular Filtration Rate > 60, BUN/Creatinine Ratio 24, Glucose Level 136H, Calcium Level 8.2L Microbiology 01/01/19 Blood Culture - Final, Complete No growth 01/01/19 MRSA Screen - Final, Complete MRSA not isolated 01/01/19 Urine Culture - Final, Complete NO GROWTH Patient resulted labs reviewed. Pending Labs Laboratory Tests 01/07/19 06:15: White Blood Count 1.2, Red Blood Count 2.34, Hemoglobin 7.3, Hematocrit 21, Mean Corpuscular Volume 91, Mean Corpuscular Hemoglobin 31, Mean Corpuscular Hemoglobin Concent 34, Red Cell Distribution Width 17.7, Platelet Count 11, Mean Platelet Volume , Neutrophils (%) (Auto) 72, Lymphocytes (%) (Auto) 21, Monocytes (%) (Auto) 3, Eosinophils (%) (Auto) 0, Basophils (%) (Auto) 3, Neutrophils # (Auto) 0.9, Lymphocytes # (Auto) 0.3, Monocytes # (Auto) 0.0, Eosinophils # (Auto) 0.0, Basophils # (Auto) 0.0, Sodium Level 140, Potassium Level 3.1, Chloride Level 105, Carbon Dioxide Level 23, Anion Gap 12, Blood Urea Nitrogen 21, Creatinine 0.86, Estimat Glomerular Filtration Rate > 60, BUN/Creatinine Ratio 24, Glucose Level 136, Calcium Level 8.2 Discussion & Recommendations Discharge Planning: <30 minutes discharge planning Discharge Home Medications: Active Scripts Active Levofloxacin 750 Mg Tablet 750 Mg PO DAILY Prednisone 5 Mg Tablet 40 Mg PO DAILY TAKES 8 (5MG) TABLETS Fluconazole 150 Mg Tablet 150 Mg PO DAILY Reported Tylenol Extra Strength (Acetaminophen) 500 Mg Tablet 1,000 Mg PO Q4H PRN Folic Acid 1 Mg Tablet 1 Mg PO DAILY Asmanex (Mometasone Furoate) 220 Mcg Aer.pow.ba 1 Puff IH BID Temazepam 30 Mg Capsule 30 Mg PO HS Simvastatin 20 Mg Tablet 20 Mg PO HS Omeprazole 20 Mg Tablet.dr 20 Mg PO BID Proair Respiclick (Albuterol Sulfate) 90 Mcg Aer.pow.ba 2 Puff IH QID PRN Spiriva Respimat 2.5MCG/ACTUATION (Tiotropium [place]) 4 Gm Mist.inhal 2 Puff IH DAILY Instructions to patient/family Please see electronic discharge instructions given to patient. Clinical Quality Measures DVT/VTE Risk/Contraindication: Risk Factor Score Per Nursin RFS Level Per Nursing on Admit: 4+=Very High Problem Qualifiers (1) Pneumonia: Pneumonia type: due to unspecified organism Laterality: unspecified laterality Lung location: unspecified part of lung Qualified Codes: J18.9 - Pneumonia, unspecified organism MARLEN SRTANGE DO January 07, 2019 10:39
--- NOTE | 2019-01-07 10:47 | Oncology Progress Note ---
Subjective Date Seen by a Provider: January 07, 2019 Time Seen by a Provider: 10:42 Subjective/Events-last exam Pt is feeling better and wants to go home if all possible. Plt 11k today. Dr. Alfred ordered 2 units of Plt transfusion today. He is the getting the 2nd unit as of now. Dr. Alfred also ordered CT angio to evaluate the persistent cough with tinged blood. NO fever. Pt walked to the [address] with the physical therapist this morning. I have arranged Pt to see me at [facility] following Thursday01/10/2019 at 11am. Data Review Labs Laboratory Tests 01/07/19 06:15 Laboratory Tests 01/04/19 12:25: Lactic Acid Level 3.24*H 01/04/19 14:04: 01/05/19 06:52: White Blood Count 1.2*L, Red Blood Count 2.07L, Hemoglobin 6.5*L, Hematocrit 19*L, Red Cell Distribution Width 18.4H, Platelet Count 22*L, Neutrophils (%) (Auto) 77H, Neutrophils # (Auto) 0.9L, Lymphocytes # (Auto) 0.2L, Potassium Level 3.2L, Blood Urea Nitrogen 19H, Glucose Level 148H, Calcium Level 8.0L, B- Type Natriuretic Peptide 175.9H 01/06/19 07:19: White Blood Count 1.7L, Red Blood Count 2.32L, Hemoglobin 7.3L, Hematocrit 21L, Red Cell Distribution Width 17.8H, Platelet Count 16*L, Neutrophils # (Auto) 1.2L, Lymphocytes # (Auto) 0.4L, Potassium Level 3.0L, Blood Urea Nitrogen 23H, Glucose Level 149H, Calcium Level 8.1L, Mean Platelet Volume 10.9H 01/06/19 12:11: 01/07/19 06:15: White Blood Count 1.2*L, Red Blood Count 2.34L, Hemoglobin 7.3L, Hematocrit 21L, Red Cell Distribution Width 17.7H, Platelet Count 11*L, Neutrophils # (Auto) 0.9L, Lymphocytes # (Auto) 0.3L, Potassium Level 3.1L, Blood Urea Nitrogen 21H, Glucose Level 136H, Calcium Level 8.2L Physical Exam Vital Signs Vital Signs - First Documented 01/01/19 01/01/19 09:12 13:28 Temp 101.1 Pulse 138 Resp 22 B/P (MAP) 108/83 (91) Pulse Ox 100 O2 Delivery Nasal Cannula O2 Flow Rate 2.00 FiO2 28 Capillary Refill : Less Than 3 SecondsLess Than 3 Seconds Height, Weight, BMI Height: 6'0.00" Weight: 229lbs. 0.0oz. 103.980443vb; 29.4 BMI Method:Stated General Appearance: No Apparent Distress HEENT: PERRL/EOMI Neck: Non Tender, Supple Respiratory: No Accessory Muscle Use, No Respiratory Distress, Crackles Cardiovascular: Regular Rate, Rhythm, No Edema, Systolic Murmur Gastrointestinal: Non Tender, Soft Extremity: Non Tender, No Calf Tenderness, No Pedal Edema Neurologic/Psychiatric: Alert, Oriented x3 Focused Exam Lactate Level 01/04/19 12:25: Lactic Acid Level 3.24*H Time of Focused Exam: 11:10 Impression & Plan Impression & Plan 1. Fever, sepsis, RUL pneumonia. Blood cultures all negative. Required pressor support early hospital stay. On IV antibiotics Zosyn and Vanco day 7; Diflucan day 6 and IV steroid treatment day 7. Overall improving clinically. 2. 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 Thrombocytopenia on steroid trial. His blood counts drop can also be related to the pneumonia. 3. Mod-severe aortic stenosis, ? candidate for surgical repair/correction. Pt had cardiac and thoracic surgery evaluation 12/28/18. He will have more tests including JANETT on 01/19/19 to decide if he does have a critical stenosis and would be benefit from the surgical repair. Because of this, he has been chronic fatigue and was on wheel chair/walker since 10/2018. 4. h/o RLL non-small cell lung cancer, s/p surgical resection and chemotherapy cisplatin and gemcitabine 2012. Most recent CT scan of chest and abdomen 11/26/2018 showed NO recurrence of disease. 5. Severe SOB and hypoxia with minimal exertion O2 saturation drop from 95% sitting to 87% standing and 82% walking a few steps and near syncope. This is mostly likely related to his aortic stenosis, rather than anemia. 6. 80 pack year of smoking, stopped 2012 when he as diagnosed with lung cancer 7. h/o CAD but recent cardiac cath 10/2018 did not show any blockage or active lesion. 8. GERD, taking omeprazole at home. Now on Protonix 40mg daily. 9. Volume overload. treated with IV Lasix. CXR still shows interstitial infiltration and right pleural effusion. However, clinically improving. Dr. Alfred ordered CT angio evaluation today. Plan: 1. Pt can go home from Hem/Onc point of view. I will see him at cancer 01/10/19 11am at the cancer center. When he is ready to be discharge home, he needs to be on prophylactic antibiotics due to low WBC and ANC. Levaquin 750mg daily PO and Diflucan 150mg daily PO. He is allergic to Bactrim. 2. Continue Protonix or Omeprazole daily at home with thumbs PRN 3. Pt needs to be on Prednisone 60mg daily PO when going home for 3 days until he sees me again in the clinic. I will then decide the steroid taper. The steroid taper will depend on his Plt number and clinical performance. He will come to cancer center 2x/wk for evaluation. He is a very complicated case. Thank you for your service. Clinical Quality Measures DVT/VTE Risk/Contraindication: Risk Factor Score Per Nursin RFS Level Per Nursing on Admit: 4+=Very High MAREN MUSE MD January 07, 2019 10:47
--- NOTE | 2019-01-07 11:44 | Occupational Ther Daily Note ---
OT Current Status-Daily Note Subjective Pt seen in room, up in recliner, agreeable to OT. No pain mentioned. Appearance Alert, cooperative Mental Status/Objective Therapy Code Descriptions/Definitions Functional [place] Measure: 0=Not Assessed/NA 4=Minimal Assistance 1=Total Assistance 5=Supervision or Setup 2=Maximal Assistance 6=Modified [place] 3=Moderate Assistance 7=Complete [place] ADL-Treatment Pt indicated that he was going home later this afternoon. Pt and did not anticipate any difficulties with ADLs at home. He has a walk in shower with a shower chair and handicapped toilet. He said that he could dress himself as well. Pt educ to pace himself once he returns home, to avoid overfatigue or a fall. Pt left up in recliner, all needs met. DC OT, with goals met to patient satisfaction. Education OT Patient Education: Instructions to caregiver, Purpose of tx/functional activities, Safety issues Teaching Recipient: Patient, Family Teaching Methods: Discussion Response to Teaching: Verbalize Understanding OT Short Term Goals Short Term Goals 1=Demonstrate adherence to instructed precautions during ADL tasks. 2=Patient will verbalize/demonstrate understanding of assistive devices/modifications for ADL. 3=Patient will improve strength/tolerance for activity to enable patient to perform ADL's. OT Staff Physician Goals Long-Term Goals Grooming(FIM): 7 Bathing(FIM): 6 Upper Body Dressing(FIM): 6 Lower Body Dressing(FIM): 6 Toileting(FIM): 6 Transfers (B,C,W/C) (FIM): 6 Toilet/Commode Transfer(FIM): 6 Additional Goals: 1-Demonstrate ADL Tasks, 2-Verbalize Understanding, 3- ImproveStrength/Julia 1=Demonstrate adherence to instructed precautions during ADL tasks. 2=Patient will verbalize/demonstrate understanding of assistive devices/modifications for ADL. 3=Patient will improve strength/tolerance for activity to enable patient to perform ADL's. OT Education/Plan Problem List/Assessment pt presents with functional limitations affecting areas of ADLS/ functional transfers. pt would benefit from OT services to increase independence with ADLS/ functional transfers. Discharge Recommendations Plan/Recommendations: Discharge/Goals Met Treatment Plan/Plan of Care Patient would benefit from OT for education, treatment and training to promote independence in ADL's, mobility, safety and/or upper extremity function for ADL's. Plan of Care: ADL Retraining, Functional Mobility, Group Exercise/Act as Ind, UE Funct Exercise/Act Treatment Duration: Jan 13, 2019 Frequency: 5 times per week Estimated Hrs Per Day: .25 hour per day Agreement: Yes Rehab Potential: Good Time/GCodes Start Time: 11:30 Stop Time: 11:39 Total Time Billed (hr/min): 9 Billed Treatment Time visit, 9 minutes ADL RAFAEL RO OT January 07, 2019 11:44
--- NOTE | 2019-01-07 12:23 | Diagnostic Imaging Report ---
PROCEDURE: CT angiography of the chest with contrast. TECHNIQUE: Multiple contiguous axial images were obtained through the chest after uneventful bolus administration of intravenous contrast. 2D reconstructed CTA MIP acquisitions were also performed. Auto Exposure Controls were utilized during the CT exam to meet ALARA standards for radiation dose reduction. INDICATION: Lung cancer. FINDINGS: There are no previous CT chest examinations available for comparison. The plain film examination of the chest performed on 01/06/2019 noted alveolar/interstitial infiltrates involving the right lung as well as a right pleural effusion. On this exam, there are diffuse alveolar/interstitial pulmonary infiltrates throughout the right lung. There is also a small amount of fluid in the right lung base. These findings are similar to the prior chest exam. However, there are also alveolar/interstitial infiltrates scattered throughout the left lung, particularly the left upper lobe. These findings are probably related to pneumonia/atelectasis. The heart size is at the upper limits of normal. There are coronary artery calcifications evident. The aorta is not abnormally dilated, and there is no sign of a dissection. There is no defect within the pulmonary arteries to indicate a pulmonary embolus. There is a 2.4 x 3.0 cm group of nodes in the right hilum. There is also a 1.1 x 1.8 cm node in the right pretracheal region. A few other much smaller subcentimeter nodes are also seen. These nodes are nonspecific and may represent reactive nodes secondary to the pneumonia/atelectasis involving the lungs. The possibility that they are related to neoplasm should also be considered. A short-term (4-6 week) followup CT chest exam would be recommended for further study. The bone windows show no evidence for a fracture or for a destructive lesion. However, there are several small areas of diminished density scattered throughout the visualized lumbar and lower thoracic vertebrae. These findings are nonspecific, but the possibility that they are secondary to metastatic disease should be considered. If further imaging is desired, then MRI would be recommended. The sections through the upper abdomen fail to show any sign of an acute abnormality. There is no evidence for metastatic disease either. IMPRESSION: 1. There is bilateral pneumonia/atelectasis with greater involvement on the right. There is also a small amount of fluid in the right lung base. 2. There is no acute cardiopulmonary abnormality noted otherwise. In particular, there is no sign of a pulmonary embolus or evidence of a dissection. 3. The right hilar and mediastinal nodes are nonspecific in appearance. Recommendations as above. 4. The small areas of diminished density in the lower thoracic and upper lumbar vertebrae are suspicious but not conclusive for metastatic disease. If further imaging is desired, then MRI would be recommended. Dictated by: Dictated on workstation # [id number]
--- NOTE | 2019-01-07 14:57 | NUR ---
Pt and pleased with plan to discharge home. He has home oxygen from [facility] and no needs identified.
--- NOTE | 2019-01-11 10:22 | Physician Query Clarification ---
PQ-Link Infection to Dev/Proc Admission/Discharge Admission Date: January 01, 2019 at 11:02 Discharge Date: January 07, 2019 at 12:35 The medical record reflects the following clinical scenario: History/Risk Factors: Port placed day before admission by Dr. Marks. Myelodysplastic syndrome with platelet transfusion day before admission. Aortic Stenosis Clinical Findings: Fever of 100.5 to 102.7 on night of port placement with shortness of breath,pale and shivering. Treatment: IV Zosyn, Vancomycin and Diflucan Question: Can you specify if the Sepsis is due to/associated with the port procedure]? Please document a response in Progress Note or Discharge Summary. 1. Yes - [infection] is due to/associated with [device or procedure]. 2. No - [infection] is not due to/associated with [device or procedure]. 3. Other, with explanation of the clinical findings. 4. Clinically undetermined, no explanation for the clinical findings. PHYSICIAN RESPONSE Specify if infection: 2 Please remember a lack of response to the above will prompt a phone page by CDI/Coding staff. In responding to this query, please exercise your independent professional judgment. The purpose of this communication is to more accurately reflect the complexity of your patients condition. The fact that a question is asked does not imply that any particular answer is desired or expected. Thank you for your timely response to this clarification. Requestors name: [ ] Phone # [ ] THIS PHYSICIAN QUERY FORM IS A PERMANENT PART OF THE MEDICAL RECORD MARLON HENRIQUEZ Jan 11, 2019 10:22 MARLEN STRANGE DO Jan 11, 2019 10:30
== END 2019-01-07 12:35 | disposition home or self-care (01) | DRG 871 ==
LOC: EDUNIT# 09:12 → ER 09:13 → ICU 11:02 → 4TH 01-03 12:15
PROVIDERS: ADMIT Internal Medicine; ATTEND Internal Medicine
DX: A41.9 Sepsis, unspecified organism (principal); R65.21 Severe sepsis with septic shock; J18.9 Pneumonia, unspecified organism; E87.2 Acidosis; R04.2 Hemoptysis; J81.1 Chronic pulmonary edema; D46.9 Myelodysplastic syndrome, unspecified; D61.818 Other pancytopenia; E87.70 Fluid overload, unspecified; J43.9 Emphysema, unspecified; I35.0 Nonrheumatic aortic (valve) stenosis; I10 Essential (primary) hypertension; I25.10 Atherosclerotic heart disease of native coronary artery without angina pectoris; N28.9 Disorder of kidney and ureter, unspecified; R30.0 Dysuria; R39.198 Other difficulties with micturition; E87.6 Hypokalemia; K21.9 Gastro-esophageal reflux disease without esophagitis; Z99.81 Dependence on supplemental oxygen; Z85.118 Personal history of other malignant neoplasm of bronchus and lung; Z90.2 Acquired absence of lung [part of]; Z92.21 Personal history of antineoplastic chemotherapy; Z87.891 Personal history of nicotine dependence; Z98.890 Other specified postprocedural states
CPT/HCPCS: 36415; 71045; 71275; 80048; 80053; 80202; 81000; 82533; 83605; 83735; 83880; 84100; 85014; 85018; 85025; 85610; 85730; 86850; 86900; 86901; 86920; 87040; 87081; 87088; 87804; 93005; 94640; 94760; 96361; 96365; 96367

== ENCOUNTER 2019-01-07 12:51 | Inpatient (IN) | payer MEDICARE, OTHER ==
[~2019-01-07] VITALS: Ht 182.9 cm; Wt 96.8 kg
[~2019-01-07 12:51] MED LIST changes: +ACET-2267 PO; +FOLI1TAB24 PO; +MOME220A2 IH
--- NOTE | 2019-01-10 14:26 | NUR ---
SEE PREVIOUS CHART FOR ASSESSMENT INFO
--- NOTE | 2019-01-10 14:26 | NUR ---
KELLY BERMEO admitted to swing bed status to room 421-1, with an admitting diagnosis of SWB TIFFANIE. PNEUMONIA, on 01/10/19 from acute inpatient status. PT/OT/ST/CHEMO Therapy to evaluate patient for activity needs. KELLY BERMEO and/or family introduced to surroundings, call light, bed controls, phone, TV, temperature control, lights, meal times, smoking policy, visitor policy, side rail policy, bathrooms, and showers. Patient rights given to patient in the handbook.. KELLY BERMEO and/or family member verbalized understanding that [facility] is not responsible for the loss or damage to any personal effects or valuables that are kept in the patients possession during their hospitalization. The following care plans were discussed with KELLY BERMEO: Discharge Plannning,PAIN CONTROL,MONITOR RESP AND O2 SAT, and TESTS AND PROCEDURES. KELLY BERMEO and/or family verbalizes understanding of the Interdisciplinary Patient Education. Patient and/or family were informed about the Rapid Response Team and its purpose. Call light with in reach and patient demonstrates understanding of how to use. KELLY BERMEO reports no further needs at this time.
[2019-01-10] MEDS ORDERED: ACETAMINOPHEN 500 MG TAB (TYLENOL) PO PRN (14:45)
[2019-01-10] MEDS ORDERED: PIPERACILLIN/TAZOBACTAM (BULK) 4.5 GM in NS (IVPB) 100 ML IV SCH (14:45)
[2019-01-10] MEDS ORDERED: AZACITIDINE SQ SCH (15:06)
[2019-01-10 16:30] VITALS: BP 177/79
[2019-01-10] MEDS: PIPERACILLIN/TAZOBACTAM (BULK) 4.5 GM in NS (IVPB) 100 ML IV SCH (17:54)
[2019-01-10] MEDS: NS W/KCL 20 MEQ/L 1,000 ML IV SCH (17:55)
[2019-01-10 18:30] VITALS: BP 177/79
[2019-01-10] MEDS: ACETAMINOPHEN 325 MG TABLET PO PRN ×2 (18:41→22:47)
[2019-01-10] MEDS: RT-ALBUTEROL/IPRATROPIUM 3 ML (DUONEB) VIAL INH SCH ×2 (19:29→22:56)
[2019-01-10] MEDS: ONDANSETRON 4 MG/2 ML (SDV) Z0FRAN IV PRN (19:38)
--- NOTE | 2019-01-10 20:53 | NUR ---
THIS RN CALLED DR. ESCOBAR IN REGARDS TO THE PATIENT'S TEMPERATURE BEING 101.5 TYMPANICALLY AND THE PT COMPLAINING OF SHAKING AND CHILLS. ORDERS RECEIVED FOR MOTRIN 600 MG PO ONCE AND BENADRYL 25 MG PO ONCE. ORDERS READ BACK AND VERIFIED.
[2019-01-10] MEDS ORDERED: IBUPROFEN 600 MG (MOTRIN) TAB PO ONE (21:00)
[2019-01-10] MEDS ORDERED: diphenhydrAMINE 25 MG TAB (BENADRYL) PO ONE (21:00)
[2019-01-10] MEDS: ACYCLOVIR INJECTION 500 MG in NS (IVPB) 100 ML IV SCH (21:39)
--- OUTSIDE RECORDS SUMMARY | 2019-01-10 22:45 | XMS REPORT | Clinical Summary ---
Author Author [facility] Organization [facility] Address Unknown Phone Unavailable Care Team Providers Care Manager Care Name Role Phone Aidan Caraballo PCP Ramiro Collazo MD Unavailable Source Comments Some departments are not documenting in the electronic medical record. If you d o not see the information that you expected, contact [facility] [employer] Information Management department at [phone] for further assistan ce in locating additional records.[facility] Allergies Comments Active Allergy Reactions Severity [...] increased risk of infections. lives in [place], [place] and will need to be followed locally for treatments, supportive care and close monitoring. He was agreeable to establish care with Dr.Mickey Zafar In [place], [place]. We also discussed the option of best supportive care with palliative service. Patient would like to think about his options but he will proceed with hypomethylating agents for now locally. We will see him again in 2 to 4 months with repeat bone marrow biopsy and aspiration at [facility] to evaluate his response. Depending on [...] Address City/State/Zipcode Phone Number MAIN LAB [address] [place] [address] * COMPREHENSIVE METABOLIC PANEL CELLULAR THERAPEUTICS (12/01/2018 [...] (L) >60 mL/min [facility] MAIN LAB Comment: [place] The eGFR is not validated for use in drug dosing adjustments.Continue to use estimated creatinine clearance per dosing reference text.Please contact the Clinical Pharmacist for questions. eGFR >60 >60 mL/min [facility] MAIN LAB [place] Comment: The eGFR is not validated for use in drug dosing adjustments.Continue to use estimated creatinine clearance per dosing reference text.Please contact the Clinical Pharmacist for questions. Specimen Blood Performing Organization Address City/State/Zipcode Phone Number MAIN LAB [address] [place] [address] * CBC AND DIFF CELLULAR THERAPEUTICS (12/01/2018 [...] LAB MPV 8.9 7 - 11 [place] [facility] LAB Segmented 34 (L) 41 [...] Count Manual Specimen Blood Performing Organization Address City/[facility] Phone Number MAIN LAB [address] [place] [address] * PHOSPHORUS CELLULAR THERAPEUTICS (11/30/2018 5:32 AM CDT) Only the most recent of 4 results within the time period is included. Phosphorus 3.1Comment: NOTE NEW REFERENCE 2.0 - 4.5 MG/DL MAIN LAB RANGES Specimen Blood Performing Organization Address [facility] Phone Number MAIN LAB [address] [place] [address] * PTT (APTT) (11/30/2018 5:32 AM CDT) Only the most recent of 4 results within the time period is included. APTT 26.8 24.0 - 36.5 SEC MAIN LAB Specimen Blood Performing Organization Address City/[facility] Phone Number MAIN LAB [address] [place] [address] * PROTIME INR (PT) (11/30/2018 5:32 AM CDT) Only the most recent of 4 results within the time period is included. INR 1.3 (H) 0.8 - 1.2 MAIN LAB Specimen Blood Performing Organization Address City/[facility]/Zipcode Phone Number MAIN LAB [address] [place] [address] * FIBRINOGEN (11/30/2018 5:32 AM CDT) Only the most recent of 5 results within the time period is included. Fibrinogen 502 (H) 200 - 400 MG/DL [facility] MAIN LAB Specimen Blood Performing Organization Address [facility] Phone Number [facility] MAIN LAB [address] [place] [address] * URIC ACID (11/30/2018 5:32 AM CDT) Only the most recent of 5 results within the time period is included. Uric Acid 3.4 (L) 4.0 - 8.0 MG/DL [facility] MAIN LAB Specimen Blood Performing Organization Address [facility] Phone Number [facility] MAIN LAB [address] [place] [address] * LDH-LACTATE DEHYDROGENASE (11/30/2018 5:32 AM CDT) Only the most recent of 5 results within the time period is included. Lactate 188 100 - 210 U/L [facility] MAIN LAB Dehydrogenase Specimen Blood Performing Organization Address [facility] Phone Number [facility] MAIN LAB [address] [place] [address] * HLA CLASS 1A 1B 1C AND 2 PHENO HIGH RES (11/29/2018 11:20 PM CDT) Only the most recent of 2 results within the time period is included. Pathologist [facility] HLA Class 1A 1B Report Available in Epic REFERENCE LAB 1C and 2 Pheno High Res Specimen Blood Performing Organization Address [facility] Phone Number REFERENCE LAB REFERENCE LAB See [...] (L) >60 mL/min [facility] MAIN LAB Comment: [place] The eGFR is not validated for use in drug dosing adjustments.Continue to use estimated creatinine clearance per dosing reference text.Please contact the Clinical Pharmacist for questions. eGFR >60 >60 mL/min [facility] MAIN LAB [place] Comment: The eGFR is not validated for use in drug dosing adjustments.Continue to use estimated creatinine clearance per dosing reference text.Please contact the Clinical Pharmacist for questions. Specimen Blood Performing Organization Address [facility] Phone Number MAIN LAB [address] [place] [address] * HLA ANTIBODY ID (11/29/2018 6:03 PM CDT) Pathologist [facility] HLA Antibody ID Report Available in [facility] REFERENCE LAB Performing Organization Address [facility] Phone Number REFERENCE LAB REFERENCE LAB See results for address. * HLA ANTIBODY SCREEN (11/29/2018 6:03 PM CDT) HLA Antibody Report Available in [facility] REFERENCE LAB Screen Specimen Blood Narrative Performed At Performing Organization Address City/[facility] Phone Number REFERENCE LAB REFERENCE LAB See results for address. * CMV AB IGG (11/29/2018 6:03 PM CDT) CMV, IgG NEG MAIN LAB Specimen Blood Performing Organization Address [facility] Phone Number MAIN LAB [address] [place] [address] * URINALYSIS, MICROSCOPIC (11/29/2018 12:15 PM CDT) Only the most recent of 2 results within the time period is included. WBCs,UA NONE 0 - 2 /HPF [facility] MAIN LAB RBCs,UA NONE 0 - 3 /HPF [facility] MAIN LAB Specimen Urine - Urine Performing Organization Address [facility] Phone Number MAIN LAB [address] [place] [address] * URINALYSIS DIPSTICK (11/29/2018 12:15 PM CDT) Only the most recent of 2 results within the time period is included. Color,UA YELLOW [facility] MAIN LAB Turbidity,UA CLEAR CLEAR-CLEAR [facility] MAIN LAB Specific 1.006 1.003 - 1.035 [facility] MAIN LAB Felt-Urine pH,UA 6.0 5.0 - 8.0 [facility] MAIN [...] Specimen Urine - Urine Performing Organization Address [facility] Phone Number MAIN LAB [address] [place] [address] * SODIUM-URINE RANDOM (11/29/2018 12:15 PM CDT) Sodium, Random 41 MMOL/L MAIN LAB Specimen Urine - Urine Performing Organization Address [facility] Phone Number MAIN LAB [address] [place] [address] * OSMOLALITY-URINE RANDOM (11/29/2018 12:15 PM CDT) Osmolality-Urin 236 50 - 1,400 MOS/KG MAIN LAB e Specimen Urine - Urine Performing Organization Address [facility] Phone Number MAIN LAB [address] [place] [address] * BONE MARROW (11/29/2018 11:47 AM CDT) PATHOLOGY [facility] MAIN LAB [facility] [email or web address] Department of Pathology and Laboratory Medicine [address] [place] [address] Surgical Pathology Office:[phone] :[phone] SURGICAL PATHOLOGY REPORT NAME: KELLY YOST SURG PATH #: [id number] MR #: [id number] ALT ID #: LOCATION: DISCHARGED DATE OF [...] of Pathology and Laboratory Medicine of the [facility] ([employer]) in compliance [...] of Pathology and Laboratory Medicine of the [facility].It has not been cleared or approved by the FDA.The FDA has determined that such clearance or approval is not necessary. Performing Organization Address City/State/Zipcode Phone Number [facility] [address] [place] [address] * CHROMOSOMES FISH DNA PROBE (11/29/2018 11:16 AM CDT) Chromosomes Cytogenetics Report Available [facility] Fish DNA Probe in [facility] Specimen Bone Marrow Performing Organization Address City/[facility]/Zipcode Phone Number [facility] LAB [address] [place] [address] * CHROMOSOMES BONE MARROW (11/29/2018 11:16 AM CDT) Pathologist [facility] Chromosomes Cytogenetics Report Available [facility] LAB Bone Marrow in [facility] Specimen Bone Marrow Performing Organization Address [facility] Phone Number [facility] LAB [address] [place] [address] * HEME PANEL NGS 65 BLD OR BM (11/29/2018 11:10 AM CDT) Pathologist [facility] Heme Panel NGS Report Available in [facility] REFERENCE LAB 65 BLD or Bone Marrow Performing Organization Address [facility] Phone Number REFERENCE LAB REFERENCE LAB See results for address. * FLOW CYTOMETRY (11/29/2018 11:10 AM CDT) Pathologist [facility] PATHOLOGY [facility] [email or web address] Kai Soliz MD, Director of Flow Cytometry Laboratory Department of Pathology and Laboratory Medicine [address] [place] [address] Surgical Pathology Office:[phone] :[phone] FLOW CYTOMETRY REPORT NAME: KELLY YOST SURG PATH #: [id number] MR #: [id number] SPECIMEN CLASS: LC BILLING #: [id number] ALT ID #:LOCATION: 42 DATE OF PROCEDURE: 11/29/2018 AGE:73 SEX: M DATE RECEIVED: 11/29/2018 : 1945TIME RECEIVED:12:01 PHYSICIAN: LÁZARO OLIVEIRA DATE OF REPORT: 11/29/2018 COPY TO: DO Maureen DECKER M.D. [facility] DATE OF PRINTIN11/29/2018 Material Received: A: Bone [...] Panel Myeloid Associated Markers (% Positive Cells): JG32n=86; ZL86i=6; CD13=80; CD14=1; CD15=5; CD33=66; CD64=9; PZ232=55; cyMPO=42; cyMPO+CD34+=20 B Cell Associated Markers (% Positive Cells): CD19=5; CD20=4; akGM13=8; ruQQ26r=4 [place]=0; Lambda=1; [place]:Lambda ratio=0.0 T Cell Associated Markers (% Positive Cells): CD1a=0; CD2=1; sCD3=0; cyCD3=0; CD4=0; CD5=0; CD7=4; CD8=0 CD4:CD8 ratio=n/a Miscellaneous Markers (% Positive Cells): CD10=1; CD34=72; CD34+CD13+=65; CD34+CD117+=69; CD38=99; CD45= 20; CD56=31; PJ398=19; HLA-DR=71; nTdT=0 Cell Viability (%):n/a Number of Cells Analyzed:10,000 Total Number of Markers: 31 Summary of Marker Combinations: Dr/33/34/13/123/45/56/15; 117/34/64/11b/45/14/11c; K/L/34/10/19/45/38/20; 2/7/4/3/1a/45/5/8; nTdt/cy22/34/cy3/cy79a/45/cyMP O/19 This test was developed and its performance characteristics determined by the [facility] Flow Cytometry Laboratory.It has not been cleared or approved by the U.S. Food and Drug Administration (FDA).The FDA has determined that such clearance or approval is not necessary. Performing Organization Address City/[facility]/Zipcode Phone Number [facility] LAB [address] [place] [address] * LEUKEMIA/LYMPHOMA PNL, BONE MARROW (11/29/2018 11:10 AM CDT) Leuk/Lymph SEE PATHOLOGY REPORT MAIN LAB Interpretation Specimen/LLM BONE MARROW [facility] LAB Specimen Bone Marrow Performing Organization Address [facility] Phone Number [facility] [address] [place] [address] * FE STAIN (11/29/2018 11:10 AM CDT) Bone Marrow FE SEE PATHOLOGY REPORT [facility] LAB Specimen Bone Marrow - Bone Marrow Performing Organization Address [facility] Phone Number [facility] [address] [place] [address] * BONE MARROW ASP (11/29/2018 11:10 AM CDT) Bone Marrow Asp SEE PATHOLOGY REPORT MAIN LAB Specimen Bone Marrow - Bone Marrow Performing Organization Address [facility] Phone Number [facility] [address] [place] [address] * BONE MARROW BIOPSY (11/29/2018 11:10 AM CDT) Bone Marrow Bx SEE PATHOLOGY REPORT MAIN LAB Specimen Bone Marrow - Bone Marrow Performing Organization Address [facility] Phone Number [facility] [address] [place] [address] * OSMOLALITY (11/29/2018 5:56 AM CDT) Osmolality 276 (L) 280 - 307 MOSMOL/KG [facility] Performing Organization Address City/[facility]/Zipcode Phone Number [facility] MAIN LAB [address] [place] [address] * AMYLASE (11/29/2018 5:56 AM CDT) Amylase 39 24 - 100 U/L [facility] MAIN LAB Performing Organization Address City/[facility]/Zipcode Phone Number [facility] MAIN LAB [address] [place] [address] * VRE SCREEN (11/26/2018 10:00 PM CDT) Battery Name VRE SCREEN [facility] MAIN LAB Specimen PERIRECTAL SWAB MAIN LAB Description Special NONE [facility] MAIN LAB Requests Culture NO VRE ISOLATED [facility] MAIN LAB Report Status FINAL [facility] MAIN LAB 11/28/2018 Specimen Perirectal Swab Performing Organization Address City/[facility] Phone Number [facility] MAIN LAB [address] [place] [address] * CULTURE-BLOOD W/SENSITIVITY (11/26/2018 9:55 PM CDT) Only the most recent of 2 results within the time period is included. Battery Name BLOOD CULTURE MAIN LAB Specimen BLOOD MAIN LAB Description RIGHT HAND Special NONE MAIN LAB Requests Culture NO GROWTH 5 DAYS [facility] MAIN LAB Report Status FINAL [facility] MAIN LAB 12/02/2018 Specimen Blood Performing Organization Address [facility] Phone Number MAIN LAB [address] [place] [address] * 2-D + DOPPLER ECHOCARDIOGRAM (11/26/2018 2:57 [...] PV Odette Lipari, RDCS Definity OTHER OUTSIDE FIELD RADIO OPERATOR LAB FS 43.37 28 - 44 % OTHER OUTSIDE LAB EF 73.72 % OTHER OUTSIDE LAB LV mass 145.91 96 - 200 g OTHER OUTSIDE LAB RWT 0.52 <=0.42 OTHER OUTSIDE LAB Aortic valve 1.22 cm2 OTHER OUTSIDE area= LAB AV index 0.26 OTHER OUTSIDE (seminole) LAB E/A ratio 0.66 OTHER OUTSIDE LAB LVOT area 3.80 cm2 OTHER OUTSIDE LAB LVOT stroke 72.23 cm3 OTHER OUTSIDE volume LAB TV rest 33 mmHg OTHER OUTSIDE pulmonary LAB artery pressure E/E' ratio 6.50 OTHER OUTSIDE LAB Right Heart 0.136 m/s OTHER OUTSIDE Systolic TDI S' LAB Left Atrium 14.17 16 - 34 OTHER OUTSIDE Index LAB Cardiology Siemens [id number] OTHER OUTSIDE Ultrasound LAB Machine Left Ventricle [...] 12:37 PM CDT) Impressions Performed At [facility] - Kkzpu-nk-Tyxh Ultrasound [facility] RAD RESULTS Exam Date: 11/26/2018 Exam Type: POC ED US CARDIAC LTD Access Registrar: Joce Elizondo Attending: Hever Guillen Worksheet: ED-Cardiac Clinical Indication(s) for exam: Chest pain Views: Parasternal [place]: Limited Parasternal [place]: Limited Apical Four-Chamber: Limited Subxiphoid (4 chamber): Limited Subxiphoid IVC: Adequate Apical 2 Chamber: Not obtained Apical [place]: Not obtained Subxiphoid LV Short [place]: Not obtained Suprasternal Notch: Not obtained Other: [...] - 12/20/2018 10:10 PM CDT IMPRESSION [facility] - Vbsfa-qh-Xbpy Ultrasound Exam Date: 11/26/2018 Exam Type: POC ED US CARDIAC LTD Access Registrar: Joce Elizondo Attending: Hever Guillen Worksheet: ED-Cardiac Clinical Indication(s) for exam: Chest pain Views: Parasternal [place]: Limited Parasternal [place]: Limited Apical Four-Chamber: Limited Subxiphoid (4 chamber): Limited Subxiphoid IVC: Adequate Apical 2 Chamber: Not obtained Apical [place]: Not obtained Subxiphoid LV Short [place]: Not obtained Suprasternal Notch: Not obtained Other: [...] 2018 at 10:08:06 PM Performing Organization Address City/[facility]/Zipcode Phone Number RAD RESULTS * BNP POC ER (11/26/2018 11:52 AM CDT) Pathologist [facility] BNP POC <15.0 0 - 100 PG/ML MAIN LAB Performing Organization Address [facility] Phone Number MAIN LAB [address] [place] [address] * POC TROPONIN (11/26/2018 11:26 AM CDT) [facility]-D-CIW 0.02 0.00 - 0.05 NG/ML MAIN LAB Performing Organization Address [facility] Phone Number MAIN LAB [address] [place] [address] * BLOOD BANK SAMPLE HOLD (11/26/2018 11:24 AM CDT) Pathologist [facility] BB Sample hold IN LAB MAIN LAB Performing Organization Address [facility] Phone Number MAIN LAB [address] [place] [address] * PERIPHERAL SMEAR (11/26/2018 11:24 AM CDT) Pathologist [facility] Peripheral OTHERS=BLASTS MAIN LAB Smear Pathologist INTERPRETED BY SAMSON VALENZUELA M.D. [facility] LAB Signature By the PATH SIGNATURE ABOVE, I attest that I have personally formulated the final interpretation expressed in this report and that the above diagnosis is based upon my examination of the slides and/or other material indicated in this report. Performing Organization Address [facility] Phone Number MAIN LAB [address] [place] [address] * CBC AND DIFF (11/26/2018 11:24 AM CDT) Pathologist [facility] White Blood 2.9 (L) 4.5 - 11.0 [...] Count Manual Specimen Blood Performing Organization Address City/[facility]/Zipcode Phone Number MAIN LAB [address] [place] [address] * LIPASE (11/26/2018 11:24 AM CDT) Lipase 10 (L) 11 - 82 U/L MAIN LAB Specimen Blood Performing Organization Address City/[facility]/Zipcode Phone Number [facility] [address] [place] [address] * COMPREHENSIVE METABOLIC PANEL (11/26/2018 11:24 AM [...] (L) >60 mL/min [facility] MAIN LAB Comment: [place] The eGFR is not validated for use in drug dosing adjustments.Continue to use estimated creatinine clearance per dosing reference text.Please contact the Clinical Pharmacist for questions. eGFR >60 >60 mL/min [facility] MAIN LAB [place] Comment: The eGFR is not validated for use in drug dosing adjustments.Continue to use estimated creatinine clearance per dosing reference text.Please contact the Clinical Pharmacist for questions. Specimen Blood Performing Organization Address City/State/Zipcode Phone Number MAIN LAB [address] [place] [address] * PRANAY PATH MOLEC REF LAB SCAN [...] file. For more i nformation, please contact: [address] [address] Date Inactivated Comments Code Status Date Activated 12/01/2018 2:50 PM Full Code 11/26/2018 8:14 PM Provider has discussed Code Status Yes w/Patient or Family?
--- OUTSIDE RECORDS SUMMARY | 2019-01-10 22:45 | XMS REPORT | Encounter Summary ---
Author Author [facility] Organization [facility] Address Unknown Phone Unavailable Care Team Providers Care V Belt Skiver Name Role Phone Aidan Caraballo PCP Ramiro Collazo MD Unavailable Reason for Visit * Reason Comments Patient Questions Encounter Details Care Team Description Date Type Department Monica Noel RN Patient Questions 12/29/[address] [facility] [address] [facility] [place] [address] Social History Date Tobacco Use Types Packs/Day [...] Jarrell. Davin Jarrell MD Medical Oncology-Hematology Via [place], [place] Routing note to Dr. Clark for feedback/authorization. documented in this encounter Plan of Treatment Not on filedocumented as of this encounter Visit Diagnoses Not on filedocumented in this encounter
--- OUTSIDE RECORDS SUMMARY | 2019-01-10 22:45 | XMS REPORT | Encounter Summary ---
Author Author [facility] Organization [facility] Address Unknown Phone Unavailable Care Team Providers Care French Teacher Name Role Phone Adian Caraballo PCP Ramiro Collazo MD Unavailable Reason for Referral * Test (Routine) Referred By Contact Referred To Contact Status Reason Specialty Diagnoses / Procedures Juancarlos Clark MD [address] [facility] [place] [address] [facility] [address] [address] No Auth Needed Cardiology Diagnoses Severe aortic stenosis P rocedures TRANSESOPHAGEAL ECHOCARDIOGRAM MO ECHO TRANSESOPHAG R-T 2D W/PRB IMG ACQUISJ I&R Encounter Details Care Team Description Date Type Department Monica Noel RN Aortic stenosis, moderate (Primary Dx); Severe aortic stenosis 12/28/2018 Pre-Admit [facility] [address] [facility] [place] [address] Social History Date Tobacco Use Types Packs/Day [...]
--- OUTSIDE RECORDS SUMMARY | 2019-01-10 22:45 | XMS REPORT | Encounter Summary ---
Author Author [facility] Organization [facility] Address Unknown Phone Unavailable Care Team Providers Care Centrifugal Supervisor Name Role Phone Aidan Caraballo PCP Ramiro Collazo MD Unavailable Reason for Referral * Radiology Services (Routine) Referred By Contact Referred To Contact Status Reason Specialty Diagnoses / Procedures Britney Dunne APRN-C [address] [place] [address] [address] No Auth Needed Radiology Diagnoses Severe aortic stenosis P rocedures CTA CHEST WO/W CONTRAST+POST IMPRESSION * Radiology Services (Routine) Referred By Contact Referred To Contact Status Reason Specialty Diagnoses / Procedures Britney Dunne APRN-C [address] [address] No Auth Needed Radiology Diagnoses Severe aortic stenosis P rocedures CTA CHEST WO/W CONTRAST+POST IMPRESSION * Radiology Services (Routine) Referred By Contact Referred To Contact Status Reason Specialty Diagnoses / Procedures Britney Dunne APRN-C [address] [address] New Request Radiology Diagnoses Severe aortic stenosis P rocedures CTA ABD/PELVIS * Radiology Services (Routine) Referred By Contact Referred To Contact Status Reason Specialty Diagnoses / Procedures Britney Dunne APRN-C [address] [place] [address] New Request Radiology Diagnoses Severe aortic stenosis P rocedures CTA ABD/PELVIS Reason for Visit * Radiology Services (Routine) Referred By Contact Referred To Contact Status Reason Specialty Diagnoses / Procedures Britney Dunne APRN-C [address] [address] [facility] [address] [address] No Auth Needed Radiology Diagnoses Severe aortic stenosis P rocedures CTA CHEST WO/W CONTRAST+POST IMPRESSION Encounter Details Care Team Description Date Type Department Britney Dunne APRN-C [address] [place] [address] [phone] 12/28/2018 [facility] [address] [place] [address] Social History Date Tobacco Use Types Packs/Day [...]
--- OUTSIDE RECORDS SUMMARY | 2019-01-10 22:46 | XMS REPORT | Encounter Summary ---
Author Author [facility] Organization [facility] Address Unknown Phone Unavailable Care Team Providers Care Access Nurse Name Role Phone Aidan Caraballo PCP Ramiro Collazo MD Unavailable Reason for Referral * Radiology Services (Routine) Referred By Contact Referred To Contact Status Reason Specialty Diagnoses / Procedures Britney Dunne APRN-Hetal [address] [address] [facility] [address] [address] No Auth Needed Radiology Diagnoses Severe aortic stenosis P rocedures CTA CHEST WO/W CONTRAST+POST IMPRESSION * Radiology Services (Routine) Referred By Contact Referred To Contact Status Reason Specialty Diagnoses / Procedures Britney Dunne APRN-Hetal [address] [address] New Request Radiology Diagnoses Severe aortic stenosis P rocedures CTA ABD/PELVIS * Consult, Test & Treat (Routine) Referred By Contact Referred To Contact Status Reason Specialty Diagnoses / Procedures Cody, Ade [facility] [address] [place] [phone] No Auth Needed Specialty Services Cardiothoracic Diagnoses Required Surgery Severe aortic stenosis Reason for Visit * Reason Comments Navigation Assessment /TAVR eval Encounter Details Care Team Description Date Type Department Cynthia Hernandez RN Navigation Assessment (/TAVR eval) 12/08/2018 Patient Profile [facility] 4000 [facility] [place] [address] Social History Date Tobacco Use Types Packs/Day [...] [facility] 12/28/2018 1:30 PM Luis Leonard [facility] 12/28/2018 2:30 [address]HOSPITAL ROOM 1 ([facility]) CAT Radiology Diagnosis & Reason for Visit: /TAVR eval Physician Info: Referring Physician(Oncologist): Geoff Jules MD Stave Bolt Equalizer: Ramiro Collazo MD PCP: Aidan Caraballo DO [...]
--- OUTSIDE RECORDS SUMMARY | 2019-01-10 22:46 | XMS REPORT | Encounter Summary ---
Author Author [facility] Organization [facility] Address Unknown Phone Unavailable Care Team Providers Care Supervisor Research Kennel Name Role Phone Aidan Caraballo PCP Reason for Visit * Reason Comments Cancer * Consult, Test & Treat (Discharge Pending) Referred By Contact Referred To Contact Status Reason Specialty Diagnoses / Procedures Male, Melanie Armstrong MD 4000 [facility] [address] [place] [address] Cc-Ww Bmt Exm [address] [place] [address] [place] [address] No Auth Needed Oncology Diagnoses MDS, RAEB-2 P rocedures F/U APPT REQUEST: [facility] Encounter Details Care Team Description Date Type Department Geoff Jules MD [address] [facility] [place] [address] MDS (myelodysplastic syndrome), high grade (HCC); Pancytopenia (HCC); Stage 3 chronic kidney disease (HCC); Aortic stenosis, moderate 12/08/2018 Office Visit The [address] [phone] Social History Date Tobacco Use Types Packs/Day [...] CDT Your care team: Dr. Geoff Jules Principal Planner Selam Kim APRN Nurse Practitioner Clinical Nurse Coordinators (CNC's) Randi Lynne RN, BSN Robina Farmer RN, BSN Phone numbers: Scheduling # [phone] CNCs Randi and Robina # [phone] Messages left on nurses' line are checked Thursday-Thursday 8:00 AM - 4:00 PM. Evening (after 4:00 PM), weekend and holiday on-call # [phone] For urgent needs after hours, please ask [...] 2012. He has been followed with (in [place], [place] with surveillance. He remembers that his blood count was normal on 06/2018. He noticed worsening shor tness of breath on exertion with occasional chest pain starting 09/2018. [place] time, his platelet count was found to be low at 89K. He was [facility] given his progressive shortness of breath [...] shortness of breath, he was referred to [facility] for possible acute leukemia. He was admitted at [facility] from 11-08 until 12-01-2018. Per discharge summary ". A peripheral smear from the ED was initially concerning for AML. 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 The patient had stable pancytopenia over admission (counts stayed similar to ones fr [place]'s records) and did not require any transfusions. [...] He is using a cane. 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 He had good functional statu s until September 2018. -MR: [id number] APPOINTMENT: Future Appointments Date Time Provider Department Center 12/08/2018 10:20 AM Geoff Jules MD CCC2 [facility] Exam REFERRING PHYSICIAN: Healther Male FACILITY: [...] and was referred to hematology to e ary dey. Timeline of Events: DATES 11/26/2018 Labs [...] for detection of rearrangement of CBFB and ONYR8Z0 (ETO)/RUNX 1 (AML1) were WNL. However, in 83.5% of interphase cells an extra [id number] (ETO) signal was present. NGS: In process [...] Trial: Patient currently in screening for a [facility] clinical trial. [employer] performance [...] NAME: KELLY YOST A SURG PATH #: [id number] MR #: [id number] ALT ID #: LOCATION: DISCHARGED DATE OF [...] and increased risk of infections. lives in [place], [place] and will need to be followed locally for treatments, supportive care and close monitoring. He was agreeable to establish care with Dr.Mickey Zafar In [place], [place]. We also discussed the option of best supportive care with palliative service. Bob de dios would like to think about his options but he will proceed with hypomethyl ating agents for now locally. We will see him again in 2 to 4 months with repea t bone marrow biopsy and aspiration at [facility] to evaluate his response. Depending on NGS [...] A Denny MD, MSc Hematology/Oncology Fellow [facility] Pager [phone] ATTESTATION I personally performed the maurice portions [...] and increased risk of infections. lives in [place], [place] and will need to be followed locally for treatments, supportive care and close monitoring. He was agreeable to establish care with Dr.Mickey Zafar In [place], [place]. We also discussed the option of best supportive care with palliative service. Bob de dios would like to think about his options but he will proceed with hypomethyl ating agents for now locally. We will see him again in 2 to 4 months with repea t bone marrow biopsy and aspiration at [facility] to evaluate his response. Depending on NGS results, if he has IDH mutations, then IDH targeted agents migh t be an option. documented in this encounter
--- OUTSIDE RECORDS SUMMARY | 2019-01-10 22:46 | XMS REPORT | Encounter Summary ---
Author Author [facility] Organization [facility] Address Unknown Phone Unavailable Care Team Providers Care Medicare Compliance Auditor Name Role Phone Aidan Caraballo PCP Ramiro Collazo MD Unavailable Reason for Visit * Reason Comments Cardiac Eval /TAVR Eval Encounter Details Care Team Description Date Type Department Juancarlos Clark MD [address] [phone] Cardiac Eval (/TAVR Eval) 12/28/2018 Office Visit The [facility] [address] [phone] Social History Date Tobacco Use Types Packs/Day [...] that time. From his mur mur in [place] they found aortic valve stenosis thought to be moderate to severe and felt some of his symptoms could be related to this. They referred him to [facility] for [...] diverticulosis. He had a heart catheterization in [place] on 11/11/2018 that did not cross the [...] He also denies any histor y of [place], CVA, TIA, cardiac arrhythmia, blood clots, or blood clotting disorders. He denies any allergy to nickel. Denies current rash on torso or groin area. De nies any reason or restoration belief that would impact their care such [...] and PFTs as well. June Bailey APRN [facility] Thoracic & Cardiovascular Surgery 12/28/2018 Cardiovascular [...]
--- OUTSIDE RECORDS SUMMARY | 2019-01-10 22:46 | XMS REPORT | Encounter Summary ---
Author Author [facility] Organization [facility] Address Unknown Phone Unavailable Care Team Providers Care Day Care Center Director Name Role Phone Ilya Aidan PCP Encounter Details Care Team Description Date Type Department Geoff Jules MD [address] [place] [address] [phone] 12/08/2018 Documentation The [address] [phone] Social History Date Tobacco Use Types Packs/Day [...] with Brynn at Dr. Zafar's office at [facility] in [place], [place].Let her know that Dr. Jules had spoken with Dr. Zafar regarding the patient and plan goi ng forward. Provided patients home and mobile phone number to Brynn and leo garcia that she make contact with patient for appointment. Requested fax number so office notes and bone marrow results can be faxed, Brynn provided fax of [phone]. Brynn has call back number to clinic for any further questions. documented in this encounter Plan of Treatment Not on filedocumented as of this encounter Visit Diagnoses Not on filedocumented in this encounter
--- OUTSIDE RECORDS SUMMARY | 2019-01-10 22:46 | XMS REPORT | Encounter Summary ---
Author Author [facility] Organization [facility] Address Unknown Phone Unavailable Care Team Providers Care Melting Furnace Skimmer Name Role Phone Aidan Caraballo PCP Reason for Visit * Reason Comments Navigation Assessment Encounter Details Care Team Description Date Type Department Geoff Jules MD [address] [place] [address] [phone] Navigation Assessment 12/02/2018 Telephone [facility] [address] [place] [phone] Social History Date Tobacco Use Types Packs/Day [...] & Reason for Visit: Transplant/Treatment Options-MDS [facility]-MR: [id number] APPOINTMENT: Future Appointments Date Time Provider Department Center 12/08/2018 10:20 AM Geoff Jules MD CCC2 [facility] Exam REFERRING PHYSICIAN: Healther Male FACILITY: [...] [facility] Timeline of Events: DATES 11/26/2018 Labs [...] for detection of rearrangement of CBFB and [id number] (ETO)/RUNX 1 (AML1) were WNL. However, in 83.5% of interphase cells an extra [id number] (ETO) signal was present. NGS: In process [...] Physical Needs Intervention: Patient encouraged to use clean up supervisor services for appoin tment(s) Communication: Assessment: Communication Barrier: No Onc Fertility: Assessment: Onc Fertility Assessment: Not applicable documented in this encounter Plan of Treatment Not on filedocumented as of this encounter Visit Diagnoses Not on filedocumented in this encounter
--- OUTSIDE RECORDS SUMMARY | 2019-01-10 22:46 | XMS REPORT | Encounter Summary ---
Author Author [facility] Organization [facility] Address Unknown Phone Unavailable Care Team Providers Care Mixer Driver Name Role Phone Aidan Caraballo PCP Encounter Details Care Team Description Date Type Department Page Mayorga MD [address] [place] [address] 12/03/2018 Documentation [facility] [address] [place] [address] Social History Date Tobacco Use [...] 12/03/2018 11:59 PM CDT Research Note: [id number], [facility]# [id number], Subject ID [id number] Patient [id number] bone marrow shows MDS. Patient will be reported as a screen f ail. documented in this encounter Plan of Treatment Not on filedocumented as of this encounter Visit Diagnoses Not on filedocumented in this encounter
--- OUTSIDE RECORDS SUMMARY | 2019-01-10 22:46 | XMS REPORT | Encounter Summary ---
Author Author [facility] Organization [facility] Address Unknown Phone Unavailable Care Team Providers Care Prop Cutter Name Role Phone Aidan Caraballo PCP Ramiro Collazo MD Unavailable Reason for Visit * Reason Comments Cardiac Eval inpt f/u- as/tavr eval * Consult, Test & Treat (Routine) Referred By Contact Referred To Contact Status Reason Specialty Diagnoses / Procedures Mac, Referring [facility] [address] [address] No Auth Needed Specialty Services Cardiothoracic Diagnoses Required Surgery Severe aortic stenosis Encounter Details Care Team Description Date Type Department Luis Leonard MD [address] [address] Aortic stenosis, moderate (Primary Dx); Non-small cell cancer of right lung (HCC); MDS (myelodysplastic syndrome), high grade (HCC); Pancytopenia (HCC); Chronic obstructive pulmonary disease, unspecified COPD type (HCC); CKD (chronic kidney disease) stage 3, GFR 30-59 ml/min (HCC); PAD (peripheral artery disease) (HCC); On home O2; NILA on CPAP; Hypertension, unspecified type; History of tobacco use 12/28/2018 Office Visit [facility] [address] [address] Social History Date Tobacco Use [...] t that time. From his murmur in [place] they found aortic valve stenosis thought to [...] diverticulosis. He had a heart catheterization in [place] on 11/11/2018 that did not cross the [...] He also denies any histor y of [place], CVA, TIA, cardiac arrhythmia, blood clots, or blood clotting disorders. He denies any allergy to nickel. Denies current rash on torso or groin area. De nies any reason or jehovah's witness belief that would impact their care such [...] (HCC) 3. MDS (myelodysplastic syndrome), high grade ([facility] 4. Pancytopenia ([facility]) 5. Chronic obstructive pulmonary disease, unspecified COPD type ([facility]) 6. CKD (chronic kidney disease) stage 3, GFR 30-59 ml/min ([facility]) 7. PAD (peripheral artery disease) ([facility]) 8. On home O2 9. NILA on CPAP 10. Hypertension, unspecified type 11. History of tobacco use Will plan on getting JANETT to better view the valve and PFTs as well. June Bailey APRN [facility] Thoracic & Cardiovascular Surgery 12/28/2018 Assessment [...]
--- OUTSIDE RECORDS SUMMARY | 2019-01-10 22:48 | XMS REPORT | Encounter Summary ---
Author Author [facility] Organization [facility] Address Unknown Phone Unavailable Care Team Providers Care Deputy Attorney General Name Role Phone Aidan Caraballo PCP Reason for Visit * Auth/Cert Referred By Contact Referred To Contact Status Reason Specialty Diagnoses / Procedures Diagnoses Pancytopenia (HCC) Encounter Details Care Team Description Date Type Department Hever Guillen MD 4000 [facility] [place] [address] 11/26/2018 Hospital [facility] [address] [address] Social History Date Tobacco Use [...]
--- OUTSIDE RECORDS SUMMARY | 2019-01-10 22:48 | XMS REPORT | Encounter Summary ---
Author Author [facility] Organization [facility] Address Unknown Phone Unavailable Care Team Providers Care Radiation Officer Name Role Phone Aidan Caraballo PCP Reason for Referral * Consult, Test & Treat (Discharge Pending) Referred By Contact Referred To Contact Status Reason Specialty Diagnoses / Procedures Male, Melanie Armstrong MD [address] [address] Cc-Ww Bmt Exm [address] [place] [address] No Auth Needed Oncology Diagnoses MDS, RAEB-2 P rocedures F/U APPT REQUEST: [facility] ([employer]) * Consult, Test & Treat (Discharge Pending) Referred By Contact Referred To Contact Status Reason Specialty Diagnoses / Procedures Male, Melanie Armstrong MD [address] [address] Cc-Ww Bmt [address] No Auth Needed Oncology Diagnoses MDS, RAEB-2 P rocedures F/U APPT REQUEST: [facility] ([employer]) Reason for Visit * Reason Comments Chest Pain CP/SOA x few weeks, worse today. Hx AV stinosis * Auth/Cert Referred By Contact Referred To Contact Status Reason Specialty Diagnoses / Procedures Diagnoses Pancytopenia (HCC) Encounter Details Care Team Description Date Type Department Hever Guillen MD [address] [facility] [place], [place] [id number] Sherif Moura DO [address] [facility] [address] [place], [place] [phone] Anyi Reddy MD [address] [place], [place] [phone] Male, Melanie Armstrong MD [address] [facility] [address] [place], [place] [phone] Pancytopenia (HCC) 11/26/2018 [facility] 12/01/[address] [place], [place] [id number] Social History Date Tobacco Use Types Packs/Day [...] or concerns regarding your hospital stay, call [phone]. Discharging attending physician: MELANIE SEVERINO [[id number]] Regular Diet You have no dietary restriction. 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, +RAEB2 -[place] labs show definite and stable pancytopenia since ~06/2018 -> WBC ~2, Hgb ~11, Plt ~50 -11/22 admit to [place] & workup significant for Ferritin (1048), abnormal [...] , with lightheadedness, MURRELL -stable murmur -11/22 [place] [facility] did not recommend TAVR in setting of pancytopenia -11/22 [place] LHC: no CAD, [id number] -11/26 [facility] ECHO showed EF 60%, no [...] Plan: >continue q6mo followup with oncology in [place] #Hepatic steatosis -11/11 FLP Chol 125 / TriG 117 / HDL 38 / LDL 64 [facility] liver with steatosis, normal spleen -11/26 CT a/p: steatosis -11/26 AST/ALT wnl #Hyponatremia (improving) -Na ~137 -> 136 -> 133 -> 130 11/29 -> 131 11/30 -serum Osm 276. Urine Na 41. Urine Osm 236 -11/15/18 [place] TSH 3.03 -improved after fluids and PO intake #CKD (stable) -Cr ~1.3 baseline -11/26 CT a/p: kidneys unremarkable #GERD > pantoprazole 40mg daily #Constipation > start miralax bid #HTN > discontinued water taxi captain amlodipine 5mg daily #HLD > continue water taxi captain simvastatin #COPD > continue water taxi captain spiriva, mometasone substitute #Insomnia > continue water taxi captain restoril 30mg qhs prn #Hx of hemorrhoidectomies (stable) > no GI bleeding #Migraine w/ aura (stable, controlled) -water taxi captain regimen triptan 50mg prn and ibuprofen [...] Staff name: Melanie Severino MD Date: 12/01/2018 Director Hair Division of Hematologic Malignancies and Cellular Therapeutics Department of Internal Medicine [facility] Pager [phone] Subjective Kelly Yost had no acute events [...] Continuous Infusions: PRN and Respiratory Meds:alteplase PRN (Outside Food Server from Rx), lidocaine PRN, ondanse shayna Q6H [...] RN - 12/01/2018 5:26 AM CDT Shift: [id number] NEWS Score: 3, 1, 2 Pain: Denies [...] equipment Therapist: Staci Joseph, Student Physical therapist contract administrative assistant Date: 11/30/2018 Associated attestation - Robina [...] mod-sever e , COPD who presented to [place] with MURRELL, pancytopenia and referred/admitted to [facility] with now most likely MDS vs less likely AML Plan #Pancytopenia, likely MDS vs less likely AML -[place] labs show definite and stable pancytopenia since ~06/2018 -> WBC ~2, Hgb ~11, Plt ~50 -11/22 admit to [place] & workup significant for Ferritin (1048), abnormal [...] , with lightheadedness, MURRELL -stable murmur -11/22 [place] [facility] did not recommend TAVR in setting of pancytopenia -11/22 [place] LHC: no CAD, [id number]-[id number]-vdcutd -11/26 [facility] ECHO showed EF 60%, no [...] Plan: >continue q6mo followup with oncology in [place] #Hepatic steatosis -11/22 [facility] abd US: enlarged liver with steatosis, normal spleen -11/26 CT a/p: steatosis -11/26 AST/ALT wnl #Hyponatremia (improving) -Na ~137 -> 136 -> 133 -> 130 11/29 -> 131 11/30 -serum Osm 276. Urine Na 41. Urine Osm 236 -11/15/18 [place] TSH 3.03 -improved after fluids and PO intake #CKD (stable) -Cr ~1.3 baseline -11/26 CT a/p: kidneys unremarkable #GERD > pantoprazole 40mg daily #Constipation > start miralax bid #HTN > holding water taxi captain amlodipine 5mg daily #HLD > continue water taxi captain simvastatin #COPD > continue water taxi captain spiriva, mometasone substitute #Insomnia > continue water taxi captain restoril 30mg qhs prn #Hx of hemorrhoidectomies (stable) > no GI bleeding #Migraine w/ aura (stable, controlled) -water taxi captain regimen triptan 50mg prn and ibuprofen [...] Staff name: Melanie Severino MD Date: 11/30/2018 Director Hair Division of Hematologic Malignancies and Cellular Therapeutics Department of Internal Medicine [facility] Pager [phone] Subjective Kelly Yost had no acute events [...] Continuous Infusions: PRN and Respiratory Meds:alteplase PRN (Outside Food Server from Rx), ondansetron Q6H PRN OR ondansetron [...] necessary equipment Therapist: [place] [id number] Date: 11/29/2018 * Page Bourgeois - 11/29/2018 9:50 AM CDT CLINICAL NUTRITION Clinical Nutrition Assessment Summary NAME:Kelly Yost :1945 AGE: 73 y.o. 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 Pt meets criteria for malnutrition. Pt reports [...] mod-sever e , COPD who presents from [facility] with MURRELL, abnormal CBCs and looking for 2nd opinion, and is admitted for pancytopenia with probable AML vs MDS Plan #Pancytopenia, probable AML vs MDS #Presenting syndrome of fevers, fatigue, MURRELL, weakness, weight loss, decreased P O intake, lightheadedness -[place] labs show definite but stable pancytopenia since 06/2018 -> WBC ~2, Hgb ~11, Plt ~50 -11/22 admit to [place] & workup significant for Ferritin (1048), Copper [...] , with lightheadedness, MURRELL -stable murmur -11/22 [place] [facility] did not recommend TAVR in setting of pancytopenia -11/22 [place] LHC: no CAD, [id number]-[id number]-iezhcs -11/26 [facility] E[facility] showed EF 60%, no [...] Urine Na 41. Urine Osm 236 -11/15/18 [place] TSH 3.03 -ddx: low osmolar intake, SIADH, [...] Plan: >continue q6mo followup with oncology in [place] #Steatosis -11/22 [facility] US: enlarged liver with steatosis, normal spleen -11/26 CT a/p: steatosis -11/26 AST/ALT wnl #New RIOS (resolved) #New vision change (resolved) #Migraine w/ aura (stable, controlled) -water taxi captain regimen triptan 50mg prn and ibuprofen prn -concern for regular tension headache but consider CLINIC BUSINESS MANAGER involvement of likely sana kemia Plan: >low threshold for MRI, LP if develops focal-findings, worsening RIOS #GERD Plan: > continue water taxi captain pantoprazole 40mg daily > order GI cocktail once today #Constipation > start miralax bid #HTN > holding water taxi captain amlodipine 5mg daily #HLD > continue water taxi captain simvastatin #COPD > continue water taxi captain spiriva, mometasone substitute #Insomnia > continue water taxi captain restoril 30mg qhs prn #Hx of hemorrhoidectomies (stable) > no GI bleeding PPX: FEN: none, replacing PRN, DIET immunosuppressed LDA: PIV DVT:holding chemical ppx with bleeding risk Code Status: Full Disposition: continue admit to Hematology DC: possible will require [facility] Patient seen and discussed with Dr. 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 Staff name: Melanie Severino MD Date: 11/29/2018 Director Hair Division of Hematologic Malignancies and Cellular Therapeutics Department of Internal Medicine [facility] Pager [phone] Subjective Kelly Yost had no acute events [...] PRN and Respiratory Meds:albuterol PRN, alteplase PRN (Outside Food Server from Rx), ondanse shayna Q6H PRN OR [...] of yellow urine overnight. Last BM 4/19 COMMERCIAL [employer]S PROFESSION[employer] per patient. No c/o N/V overnight. Activity: [...] mod-sever e , COPD who presents from [facility] with MURRELL, abnormal CBCs and looking for 2nd opinion, and is admitted for pancytopenia with probable AML vs MDS Plan #Pancytopenia, probable AML vs MDS #Presenting syndrome of fevers, fatigue, MURRELL, weakness, weight loss, decreased P O intake, lightheadedness -[facility] labs show definite but stable pancytopenia since 06/2018 -> WBC ~2, Hgb ~11, Plt ~50 -11/22 admit to [facility] and workup significant for Ferritin (1048), Copper [...] (irradiated) #Mod-severe , with lightheadedness, MURRELL -11/22 [facility] Cardiology did not recommend TAVR in setting of pancytopenia -11/22 [facility] LHC: no CAD, [id number]-gj-velmqo -11/26 [facility] ECHO showed EF 60%, no [...] Plan: >continue q6mo followup with oncology in [place] #Steatosis -11/22 [facility] abd US: enlarged liver with steatosis, normal spleen -11/26 CT a/p: steatosis -11/26 AST/ALT wnl #CKD -Cr ~1.3 baseline -> 1.3 -> 1.45 -11/26 CT a/p: kidneys unremarkable Plan: >encourage PO intake, consider labs if not improving #New RIOS (resolved) #New vision change (resolved) #Migraine w/ aura (stable, controlled) -water taxi captain regimen triptan 50mg prn and ibuprofen prn -concern for regular tension headache but consider CLINIC BUSINESS MANAGER involvement of likely sana kemia Plan: >low threshold for MRI, LP if develops focal-findings, worsening RIOS #GERD Plan: > continue water taxi captain pantoprazole 40mg daily > order GI cocktail once today #HTN > holding water taxi captain amlodipine 5mg daily #HLD > continue water taxi captain simvastatin #COPD > continue water taxi captain spiriva, mometasone substitute #Insomnia > continue water taxi captain restoril 30mg qhs prn #Hx of hemorrhoidectomies (stable) > no GI bleeding PPX: FEN: none, replacing PRN, DIET immunosuppressed LDA: PIV DVT:holding chemical ppx with bleeding risk Code Status: Full Disposition: continue admit to Hematology Patient seen and discussed with Dr. Maureen Jefferson MD PGY1 Prelim Resident Pager: [phone] ATTESTATION I have personally performed a history and physical exam on the patient. I have discussed the case with the resident and concur with the resident documentation of history, physical exam, assessment, and treatment plan. Staff name: Anyi Reddy MD Date: 11/28/2018 Director Of Food And Nutrition Division of Hematologic Malignancies and Cellular Therapeutics Pager [phone] Subjective Kelly Yost had no acute events [...] PRN and Respiratory Meds:albuterol PRN, alteplase PRN (Outside Food Server from Rx), ondanse shayna Q6H PRN OR [...] PM CDT .Patient arrived to room # (94227) via bed accompanied by transport. Patient tra [...] mod-sever e , COPD who presents from [facility] with MURRELL, abnormal CBCs and looking for 2nd opinion, and is admitted for pancytopenia with probable AML vs MDS Plan #Pancytopenia, probable AML vs MDS #Presenting syndrome of fevers, fatigue, MURRELL, weakness, weight loss, decreased P O intake, lightheadedness -[facility] labs show definite but stable pancytopenia since 06/2018 -> WBC ~2, Hgb ~11, Plt ~50 -11/22 admit to [facility] and workup significant for Ferritin (1048), Copper [...] (irradiated) #Mod-severe , with lightheadedness, MURRELL -11/22 [facility] Cardiology did not recommend TAVR in setting of pancytopenia -11/22 [facility] LHC: no CAD, bniadqyp-jo-wirwui -11/26 [facility] ECHO showed EF 60%, no [...] vision change #Migraine w/ aura (stable, controlled) -water taxi captain regimen triptan 50mg prn and ibuprofen prn -non-focal exam -concern for regular tension headache but consider CLINIC BUSINESS MANAGER involvement of likely sana kemia Plan: >low threshold for MRI, LP if develops focal-findings, worsening RIOS #Steatosis -11/22 [facility] abd US: enlarged liver with steatosis, normal spleen -11/26 CT a/p: steatosis -11/26 AST/ALT wnl #CKD (stable, ~1.3) #HTN > holding water taxi captain amlodipine 5mg daily #HLD > continue water taxi captain simvastatin #COPD > continue water taxi captain spiriva, mometasone substitute #GERD > continue water taxi captain omeprazole 20mg daily #Insomnia > continue water taxi captain restoril 30mg qhs prn #Hx of hemorrhoidectomies (stable) > no GI bleeding #Hx of NSCLC s/p lobe resection and chemo 2012 (stable) -2012 R lobe resection and cisplatin/gemcitibine -11/26 CT chest: R hilar LN, lung nodules <5mm, and old lung resection Plan: >continue q6mo followup with oncology in [place] PPX: FEN: none, replacing PRN, DIET immunosuppressed LDA: PIV DVT:holding chemical ppx with bleeding risk Code Status: Full Disposition: Admit to Hematology Patient seen and discussed with Dr. Maureen Jefferson MD PGY1 Prelim Resident Pager: [phone] ATTESTATION I have personally performed a history and physical exam on the patient. I have discussed the case with the resident and concur with the resident documentation of history, physical exam, assessment, and treatment plan. Staff name: Anyi Reddy MD Date: 11/27/2018 Director Of Food And Nutrition Division of Hematologic Malignancies and Cellular Therapeutics Pager [phone] Subjective Kelly Yost had no acute events [...] PRN and Respiratory Meds:albuterol PRN, alteplase PRN (Outside Food Server from Rx), ondanse shayna Q6H PRN OR [...] PM CDT Patient arrived to room # (0703) via wheelchair accompanied by transport. Patien t [...] mod-sever e , COPD who presents from [facility] with MURRELL, abnormal CBCs and looking for 2nd opinion, and is admitted for pancytopenia with probable AML vs MDS Plan #Pancytopenia, probable AML vs MDS #Presenting syndrome of fevers, fatigue, MURRELL, weakness, weight loss, decreased P O intake, lightheadedness -[facility] labs show definite but stable pancytopenia ~06/2018 -WBC ~2, Hgb ~11, Plt ~50 -11/22 admit to [facility] and workup significant for Ferritin (1048), Copper [...] (irradiated) #Mod-severe , with lightheadedness, MURRELL -11/22 [facility] Cardiology did not recommend TAVR in setting of pancytopenia -11/22 [facility]: no CAD, oqpquirt-[id number] -11/26 [facility] ED: BNP and troponin negative -11/26 [facility] ECHO showed EF 60%, no wall motion abnormalities, and moderate Plan: >consult cardiology in AM #New RIOS #New vision change #Migraine w/ aura (stable, controlled) -water taxi captain regimen triptan 50mg prn and ibuprofen prn -non-focal exam -concern for regular tension headache but consider CLINIC BUSINESS MANAGER involvement of likely sana kemia Plan: >low threshold for MRI, LP if develops focal-findings, worsening RIOS #CKD -Cr ~1.3 -> 1.34 on admit Plan: >500cc NS @100/hr #Steatosis -11/22 [facility] abd US: enlarged liver with steatosis, normal spleen -11/26 CT a/p: steatosis -11/26 AST/ALT wnl #HTN > holding water taxi captain amlodipine 5mg daily #HLD > continue water taxi captain simvastatin #COPD > continue water taxi captain spiriva, mometasone substitute #GERD > continue water taxi captain omeprazole 20mg daily #Insomnia > continue water taxi captain restoril 30mg qhs prn #Hx of hemorrhoidectomies (stable) > no GI bleeding #Hx of NSCLC s/p lobe resection and chemo 2012 (stable) -2012 R lobe resection and cisplatin/gemcitibine -11/26 CT chest: R hilar LN, lung nodules <5mm, and old lung resection Plan: >continue q6mo followup with oncology in [place] PPX: FEN: none, replacing PRN, DIET immunosuppressed LDA: PIV DVT:holding chemical ppx with bleeding risk Code Status: Full Disposition: Admit to Hematology Patient seen and discussed with Dr. Martell Jefferson MD PGY1 Prelim Resident Pager: [phone] ATTESTATION I have personally performed a history and physical exam on the patient. I have d iscussed the case with the resident and concur with the resident documentation o f history, physical exam, assessment, and treatment plan unless otherwise noted. Staff name: Sherif Moura DO Pager [phone] Date:11/26/2018 Chief Complaint: 2nd opinion for "MDS", [...] fever Thursday). He follows with oncology in [facility] for previously-resected NSCLC. They noted pancytopenia around . The patient recalls some vitamins and bloodwork but no biopsies or other anais p. He felt his symptoms, especially his MURRELL, progressing the last weeks, so he g ot admitted to [facility] 11/22-11/24 for evaluation. He was seen [...] quantity to the prior lab trends at [facility]/[place]. He has stable CKD to C r [...] Patient tolerated procedure well. Daisy Diaz APRN [phone] documented in this encounter Consult Notes * [...] moderate . He was seen by his switchboard operator supervisor in Oct who recommended further testing with LHC/RHC to evaluate shortness of breath. Pt underwent LHC/RHC which did not reveal any CAD. It did show moderate-severe . At that time he was also noted to have pancytopenia. He was evaluated by hemonc at [place] who felt he had MDS. He was admitted at [place] where he was apparently told he had [...] After 5PM please call Cardiology bennett w ultrasonic cleaner. Thursday - Thursday 8AM-5PM please call Cardiology consult pager TONY Caro CV Fellow Pager: [phone] Home Medications Medications Prior to Admission Medication [...] PRN and Respiratory Meds:albuterol PRN, alteplase PRN (Outside Food Server from Rx), ondanse shayna Q6H PRN OR [...] no significant ischemia. He was seen by switchboard operator supervisor and underwent cardiac catheterization. There was no significant obstructive coronary artery disease noted however he was diagnosed with moderate to severe aortic stenosis a s catheter could not be passed. He also had an echocardiogram demonstrating mod erate to severe aortic stenosis on the outside echo. Patient underwent an echoc ardiogram at [facility] yesterday demonstrating ejection fraction of 60%. [...] and pale. Patient was being seen at [facility] in [place] and was told he had aortic valve [...] 2 weeks ago he was evaluated at [facility] in [place] and underwent US and cardiac cath showing moderate aortic valve stenosis. He also states that he was noted to have low WBC and platelets at that time. Pt from [facility] in [facility]. 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 History provided by: Patient paraprofessional interpreter used: No Review of Systems: Review [...] 11 - 82 U/L Final POC TROPONIN Xpkcbgwi-T-HUH 0.02 0.00 - 0.05 NG/ML Final URINALYSIS DIPSTICK Color,UA YELLOW Final Turbidity,UA CLEAR CLEAR-CLEAR Final Specific Morris-Urine 1.014 1.003 - 1.035 Final pH,UA 6.0 [...] (Results Pending) EKG: Normal sinus rhythm (108), VA 164, QRS 80, QTc 429, No STEMI [...] in the presence of Joce Elizondo MD. Mackey McGhie Attestation / Supervision Note concerning Kelly [...] & cisplatin chemotherapy - q6mo f/u in [place] 5. Stage 3 CKD - Baseline Cr ~1.3 - Stable - Encourage PO intake 6. Migraines w/ aura - COMMERCIAL PARTS PROFESSIONAL sumatriptan and ibuprofen 7. Steatosis - OSH abdominal US revealed liver enlargement with steatosis - CT on 11/26 revealed steatosis - AST, ALT wnl - Continue to follow 8. GERD - Protonix 40 mg 9. HLD - Simvastatin 20 mg 10. COPD - Albuterol, 2 puff, BID & prn - Symbicort, 2 puff, BID - Tiotropium QD 11. Insomnia - COMMERCIAL PARTS PROFESSIONAL Temazepam 30 mg Subjective Kelly Yost is [...] Continuous Infusions: PRN and Respiratory Meds:alteplase PRN (Outside Food Server from Rx), lidocaine PRN, ondanse shayna Q6H [...] home health when medically stable. Possible [facility]. Pt's will provide transportation home. SW will continue to follow for d/c needs. 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 Pt is from [facility] in [place], [place] and is seeking a second opinion. Met with the pt, his , Viktor, and his dtr, Sylvia, at bedside for assessment and d/c planning. The pt reports he was independent with all care needs until t wo weeks prior to hospital admission. Pt became progressively fatigued and weake issac. 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 The pt has a walker and quad cane. He typically uses the w alker. The pt has no prior h/o HH, SNF, IPR, or LTACH. The pt acknowledges that he may need to remain in the area after hospital d/c. SW provided information about the [facility]. The pt and his are appreciative of the info. Pt's declines a caregiver referral to the [facility] at this time. The pt has support from his , daughter, son, and friends. The pt's is home with e pt and can provide 24/7 care. The pt's son lives 1 hour away from the pt's [facility] e. The pt's dtr lives 1 hour from the area. The pt's son and dtr cannot provi de consistent care d/t their distance from the pt's home and their familial comm itments. The pt said his goal is to function at a more independent level so he c an successfully manage his care needs in the home setting. Patient Address/Phone [address] [address] (home) Emergency Contact Extended Emergency Contact Information Primary Emergency Contact: sylvia schneider Mobile Relation: Daughter Secondary Emergency Contact: viktor yost Mobile Relation: Spouse Healthcare Directive Healthcare Directive: Yes, patient has a healthcare directive Type of Healthcare Directive: Durable power of contract attorney for healthcare, Living W ill Location [...] Source of Income Source Of Income: Other intermediate income ? Financial Assistance Needed? No Psychosocial [...] ? Outpatient Therapy PT: No OT: No ROUTE AIDE: No ? Fci Facility/Fci SNF: No NH: No ? Inpatient Rehab IPR: No ? Long-Term Acute Care Hospital LTACH: No ? Acute Hospital Stay Acute Hospital Stay: No Patricia Aguilar LMSW Pg [phone] * Care Plan - Cindy Berumen RN [...] AML (The Beat AM L Trial) HSC: [id number] Consent Version Date: Version [id number] Clinical trial [...] Address City/State/Zipcode Phone Number MAIN LAB [address] [place] [address] * COMPREHENSIVE METABOLIC PANEL CELLULAR THERAPEUTICS (12/01/2018 [...] (L) >60 mL/min [facility] Comment: [place] The eGFR is not validated for use in drug dosing adjustments.Continue to use estimated creatinine clearance per dosing reference text.Please contact the Clinical Pharmacist for questions. eGFR >60 >60 mL/min [facility] Finnish Comment: The eGFR is not validated for use in drug dosing adjustments.Continue to use estimated creatinine clearance per dosing reference text.Please contact the Clinical Pharmacist for questions. Specimen Blood Performing Organization Address City/State/Zipcode Phone Number [facility] [address] [place] [address] * CBC AND DIFF CELLULAR THERAPEUTICS (12/01/2018 [...] Count Manual Specimen Blood Performing Organization Address City/[facility]/Zipcode Phone Number [facility] [address] [place] [address] * LDH-LACTATE DEHYDROGENASE (11/30/2018 5:32 AM CDT) Lactate 188 100 - 210 U/L [facility] Dehydrogenase Specimen Blood Performing Organization Address [facility] Phone Number [facility] [address] [place] [address] * URIC ACID (11/30/2018 5:32 AM CDT) Uric Acid 3.4 (L) 4.0 - 8.0 MG/DL MAIN LAB Specimen Blood Performing Organization Address [facility] Phone Number MAIN LAB [address] [place] [address] * FIBRINOGEN (11/30/2018 5:32 AM CDT) Fibrinogen 502 (H) 200 - 400 MG/DL MAIN LAB Specimen Blood Performing Organization Address [facility] Phone Number MAIN LAB [address] [place] [address] * PHOSPHORUS CELLULAR THERAPEUTICS (11/30/2018 5:32 AM CDT) Phosphorus 3.1Comment: NOTE NEW REFERENCE 2.0 - 4.5 MG/DL [facility] RANGES Specimen Blood Performing Organization Address [facility] Phone Number MAIN LAB [address] [place] [address] * MAGNESIUM CELLULAR THERAPEUTICS (11/30/2018 5:32 AM CDT) Magnesium 1.9 1.6 - 2.6 mg/dL MAIN LAB Specimen Blood Performing Organization Address [facility]/Zipcode Phone Number MAIN LAB [address] [place] [phone] * COMPREHENSIVE METABOLIC PANEL CELLULAR THERAPEUTICS (11/30/2018 [...] Creatinine 1.33 (H) 0.4 - 1.24 MG/DL [facility] Calcium 8.6 8.5 - 10.6 MG/DL MAIN LAB Total Protein 6.0 6.0 - 8.0 G/DL MAIN LAB Total Bilirubin 0.7 0.3 - 1.2 MG/DL MAIN LAB Albumin 3.4 (L) 3.5 - 5.0 G/DL [facility] Alk Phosphatase 62 25 - 110 U/L [facility] AST (SGOT) 15 7 - 40 U/L [facility] CO2 19 (L) 21 - 30 MMOL/L [facility] ALT (SGPT) 18 7 - 56 U/L [facility] Anion Gap 8 3 - 12 [facility] eGFR Non 53 (L) >60 mL/min [facility] Comment: Finnish The eGFR is not validated for use in drug dosing adjustments.Continue to use estimated creatinine clearance per dosing reference text.Please contact the Clinical Pharmacist for questions. eGFR >60 >60 mL/min [facility] Finnish Comment: The eGFR is not validated for use in drug dosing adjustments.Continue to use estimated creatinine clearance per dosing reference text.Please contact the Clinical Pharmacist for questions. Specimen Blood Performing Organization Address City/[facility]/Zipcode Phone Number [facility] [address] [place] [address] * PTT (APTT) (11/30/2018 5:32 AM CDT) APTT 26.8 24.0 - 36.5 SEC [facility] Specimen Blood Performing Organization Address City/[facility]/Zipcode Phone Number [facility] [address] [place] [address] * PROTIME INR (PT) (11/30/2018 5:32 AM CDT) INR 1.3 (H) 0.8 - 1.2 [facility] Specimen Blood Performing Organization Address [facility]/Zipcode Phone Number [facility] [address] [place] [address] * CBC AND DIFF CELLULAR THERAPEUTICS (11/30/2018 [...] Address City/State/Zipcode Phone Number MAIN LAB [address] [place] [address] * HLA CLASS 1A 1B 1C AND 2 PHENO HIGH RES (11/29/2018 11:20 PM CDT) [facility] HLA Class 1A 1B Report Available in Epic REFERENCE LAB 1C and 2 Pheno High Res Specimen Blood Performing Organization Address City/[facility]/Zipcode Phone Number REFERENCE LAB REFERENCE LAB See results for address. * BASIC METABOLIC PANEL (11/29/2018 11:20 PM CDT) [facility] Sodium 130 (L) 137 - 147 MMOL/L [...] (L) >60 mL/min [facility] Comment: Finnish The eGFR is not validated for use in drug dosing adjustments.Continue to use estimated creatinine clearance per dosing reference text.Please contact the Clinical Pharmacist for questions. eGFR >60 >60 mL/min [facility] Finnish Comment: The eGFR is not validated for use in drug dosing adjustments.Continue to use estimated creatinine clearance per dosing reference text.Please contact the Clinical Pharmacist for questions. Specimen Blood Performing Organization Address City/State/Zipcode Phone Number MAIN LAB [address] [place] [address] * HLA ANTIBODY ID (11/29/2018 6:03 PM CDT) HLA Antibody ID Report Available in Epic REFERENCE LAB Performing Organization Address City/[facility] Phone Number REFERENCE LAB [...] PM CDT) HLA Antibody Report Available in [facility] REFERENCE LAB Screen Specimen Blood Narrative Performed At Performing Organization Address City/State/Zipcode Phone Number REFERENCE LAB REFERENCE LAB See results for address. * CMV AB IGG (11/29/2018 6:03 PM CDT) CMV, IgG NEG [facility] Specimen Blood Performing Organization Address City/State/Zipcode Phone Number [facility] [address] [place] [address] * URINALYSIS, MICROSCOPIC (11/29/2018 12:15 PM CDT) WBCs,UA NONE 0 - 2 /HPF [facility] RBCs,UA NONE 0 - 3 /HPF [facility] Specimen Urine - Urine Performing Organization Address City/State/Zipcode Phone Number MAIN LAB [address] [place] [address] * URINALYSIS DIPSTICK (11/29/2018 12:15 PM CDT) Color,UA YELLOW [facility] Turbidity,UA CLEAR CLEAR-CLEAR [facility] Specific 1.006 1.003 - 1.035 [facility] [place]-Urine pH,UA 6.0 5.0 - 8.0 [facility] MAIN [...] Specimen Urine - Urine Performing Organization Address [facility] Phone Number MAIN LAB [address] [place] [address] * OSMOLALITY-URINE RANDOM (11/29/2018 12:15 PM CDT) Osmolality-Urin 236 50 - 1,400 MOS/KG [facility] e Specimen Urine - Urine Performing Organization Address [facility] Phone Number MAIN LAB [address] [place] [address] * SODIUM-URINE RANDOM (11/29/2018 12:15 PM CDT) Sodium, Random 41 MMOL/L MAIN LAB Specimen Urine - Urine Performing Organization Address [facility] Phone Number MAIN LAB [address] [place] [address] * BONE MARROW (11/29/2018 11:47 AM CDT) PATHOLOGY [facility] [email or web address] Department of Pathology and Laboratory Medicine [address] [place] [address] Surgical Pathology Office:[phone] :[phone] SURGICAL PATHOLOGY REPORT NAME: KELLY YOST SURG PATH #: [id number] MR #: [id number] ALT ID #: LOCATION: DISCHARGED DATE OF [...] of Pathology and Laboratory Medicine of the [facility] ([employer]) in compliance [...] of Pathology and Laboratory Medicine of the [facility].It has not been cleared or approved by the FDA.The FDA has determined that such clearance or approval is not necessary. Performing Organization Address City/State/Zipcode Phone Number [facility] [address] [place] [address] * CHROMOSOMES BONE MARROW (11/29/2018 11:16 AM CDT) Chromosomes Cytogenetics Report Available [facility] Bone Marrow in Epic Specimen Bone Marrow Performing Organization Address City/[facility] Phone Number [facility] [address] [place] [address] * CHROMOSOMES FISH DNA PROBE (11/29/2018 11:16 AM CDT) Chromosomes Cytogenetics Report Available [facility] Fish DNA Probe in Epic Specimen Bone Marrow Performing Organization Address [facility] Phone Number [facility] [address] [place] [address] * FLOW CYTOMETRY (11/29/2018 11:10 AM CDT) PATHOLOGY [facility] LAB [facility] [email or web address] Kai Soliz MD, Director of Flow Cytometry Laboratory Department of Pathology and Laboratory Medicine [address] [place] [address] Surgical Pathology Office:[phone] :[phone] FLOW CYTOMETRY REPORT NAME: KELLY YOST SURG PATH #: [id number] MR #: [id number] SPECIMEN CLASS: LC BILLING #: [id number] ALT ID #:LOCATION: [id number] DATE OF PROCEDURE: 11/29/2018 AGE:73 SEX: M DATE RECEIVED: 11/29/2018 : 1945TIME RECEIVED:12:01 PHYSICIAN: DAISY DIAZ DATE OF REPORT: 11/29/2018 COPY TO: DO Maureen DECKER M.D. [facility] DATE OF PRINTIN11/29/2018 Material Received: A: [...] Panel Myeloid Associated Markers (% Positive Cells): NM78k=97; IP91r=8; CD13=80; CD14=1; CD15=5; CD33=66; CD64=9; SW794=57; cyMPO=42; cyMPO+CD34+=20 B Cell Associated Markers (% Positive Cells): CD19=5; CD20=4; stQZ02=6; blIT67q=6 [place]=0; Lambda=1; [place]:Lambda ratio=0.0 T Cell Associated Markers (% Positive Cells): CD1a=0; CD2=1; sCD3=0; cyCD3=0; CD4=0; CD5=0; CD7=4; CD8=0 CD4:CD8 ratio=n/a Miscellaneous Markers (% Positive Cells): CD10=1; CD34=72; CD34+CD13+=65; CD34+CD117+=69; CD38=99; CD45= 20; CD56=31; XR757=21; HLA-DR=71; nTdT=0 Cell Viability (%):n/a Number of Cells Analyzed:10,000 Total Number of Markers: 31 Summary of Marker Combinations: Dr/33/34/13/123/45/56/15; 117/34/64/11b/45/14/11c; K/L/34/10/19/45/38/20; 2/7/4/3/1a/45/5/8; nTdt/cy22/34/cy3/cy79a/45/cyMP O/19 This test was developed and its performance characteristics determined by the [facility] Flow Cytometry Laboratory.It has not been cleared or approved by the U.S. Food and Drug Administration (FDA).The FDA has determined that such clearance or approval is not necessary. Performing Organization Address City/[facility]/Zipcode Phone Number MAIN LAB [address] [place] [address] * HEME PANEL NGS 65 BLD OR BM (11/29/2018 11:10 AM CDT) Heme Panel NGS Report Available in Epic REFERENCE LAB 65 BLD or Bone Marrow Performing Organization Address [facility] Phone Number REFERENCE LAB REFERENCE LAB See results for address. * LEUKEMIA/LYMPHOMA PNL, BONE MARROW (11/29/2018 11:10 AM CDT) Leuk/Lymph SEE PATHOLOGY REPORT MAIN LAB Interpretation Specimen/LLM BONE MARROW MAIN LAB Specimen Bone Marrow Performing Organization Address [facility] Phone Number MAIN LAB [address] [place] [address] * FE STAIN (11/29/2018 11:10 AM CDT) Bone Marrow FE SEE PATHOLOGY REPORT MAIN LAB Specimen Bone Marrow - Bone Marrow Performing Organization Address [facility]/Zipcode Phone Number MAIN LAB [address] [place] [address] * BONE MARROW BIOPSY (11/29/2018 11:10 AM CDT) Bone Marrow Bx SEE PATHOLOGY REPORT MAIN LAB Specimen Bone Marrow - Bone Marrow Performing Organization Address [facility]/Zipcode Phone Number MAIN LAB [address] [place] [address] * BONE MARROW ASP (11/29/2018 11:10 AM CDT) Bone Marrow Asp SEE PATHOLOGY REPORT MAIN LAB Specimen Bone Marrow - Bone Marrow Performing Organization Address City/[facility]/Zipcode Phone Number [facility] [address] [place] [address] * AMYLASE (11/29/2018 5:56 AM CDT) Amylase 39 24 - 100 U/L [facility] Performing Organization Address [facility] Phone Number [facility] [address] [place] [address] * OSMOLALITY (11/29/2018 5:56 AM CDT) Osmolality 276 (L) 280 - 307 MOSMOL/KG [facility] Performing Organization Address [facility] Phone Number [facility] [address] [place] [address] * LDH-LACTATE DEHYDROGENASE (11/29/2018 5:56 AM CDT) Lactate 208 100 - 210 U/L MAIN LAB Dehydrogenase Specimen Blood Performing Organization Address [facility] Phone Number MAIN LAB [address] [place] [address] * URIC ACID (11/29/2018 5:56 AM CDT) Uric Acid 3.9 (L) 4.0 - 8.0 MG/DL MAIN LAB Specimen Blood Performing Organization Address [facility] Phone Number MAIN LAB [address] [place] [address] * FIBRINOGEN (11/29/2018 5:56 AM CDT) Fibrinogen 490 (H) 200 - 400 MG/DL [facility] Specimen Blood Performing Organization Address [facility] Phone Number MAIN LAB [address] [place] [address] * PHOSPHORUS CELLULAR THERAPEUTICS (11/29/2018 5:56 AM CDT) Phosphorus 3.1Comment: NOTE NEW REFERENCE 2.0 - 4.5 MG/DL [facility] RANGES Specimen Blood Performing Organization Address [facility]/Zipcode Phone Number [facility] [address] [place] [address] * MAGNESIUM CELLULAR THERAPEUTICS (11/29/2018 5:56 AM CDT) Magnesium 2.0 1.6 - 2.6 mg/dL [facility] Specimen Blood Performing Organization Address City/[facility]/Zipcode Phone Number MAIN LAB [address] [place] [address] * COMPREHENSIVE METABOLIC PANEL CELLULAR THERAPEUTICS (11/29/2018 [...] (L) >60 mL/min [facility] Comment: Finnish The eGFR is not validated for use in drug dosing adjustments.Continue to use estimated creatinine clearance per dosing reference text.Please contact the Clinical Pharmacist for questions. eGFR >60 >60 mL/min [facility] Finnish Comment: The eGFR is not validated for use in drug dosing adjustments.Continue to use estimated creatinine clearance per dosing reference text.Please contact the Clinical Pharmacist for questions. Specimen Blood Performing Organization Address City/[facility]/Zipcode Phone Number MAIN LAB [address] [place] [address] * PTT (APTT) (11/29/2018 5:56 AM CDT) APTT 26.8 24.0 - 36.5 SEC MAIN LAB Specimen Blood Performing Organization Address City/[facility]/Zipcode Phone Number MAIN LAB [address] [place] [address] * PROTIME INR (PT) (11/29/2018 5:56 AM CDT) INR 1.3 (H) 0.8 - 1.2 [facility] Specimen Blood Performing Organization Address City/[facility]/Zipcode Phone Number MAIN LAB [address] [place] [address] * CBC AND DIFF CELLULAR THERAPEUTICS (11/29/2018 [...] Count Manual Specimen Blood Performing Organization Address City/[facility]/Zipcode Phone Number [facility] [address] [place] [address] * LDH-LACTATE DEHYDROGENASE (11/28/2018 5:33 AM CDT) Lactate 190 100 - 210 U/L MAIN LAB Dehydrogenase Specimen Blood Performing Organization Address City/State/Zipcode Phone Number [facility] [address] [place] [address] * URIC ACID (11/28/2018 5:33 AM CDT) Uric Acid 4.4 4.0 - 8.0 MG/DL [facility] Specimen Blood Performing Organization Address City/[facility]/Zipcode Phone Number [facility] [address] [place] [address] * FIBRINOGEN (11/28/2018 5:33 AM CDT) Fibrinogen 480 (H) 200 - 400 MG/DL [facility] Specimen Blood Performing Organization Address City/[facility] Phone Number [facility] [address] [place] [address] * PHOSPHORUS CELLULAR THERAPEUTICS (11/28/2018 5:33 AM CDT) Phosphorus 3.3Comment: NOTE NEW REFERENCE 2.0 - 4.5 MG/DL [facility] RANGES Specimen Blood Performing Organization Address City/[facility] Phone Number [facility] [address] [place] [address] * MAGNESIUM CELLULAR THERAPEUTICS (11/28/2018 5:33 AM CDT) Magnesium 1.9 1.6 - 2.6 mg/dL [facility] Specimen Blood Performing Organization Address [facility] Phone Number [facility] [address] [place] [address] * COMPREHENSIVE METABOLIC PANEL CELLULAR THERAPEUTICS (11/28/2018 [...] LAB Anion Gap 8 3 - 12 [facility] eGFR Non 48 (L) >60 mL/min [facility] Comment: Finnish The eGFR is not validated for use in drug dosing adjustments.Continue to use estimated creatinine clearance per dosing reference text.Please contact the Clinical Pharmacist for questions. eGFR 58 (L) >60 mL/min MAIN LAB Finnish Comment: The eGFR is not validated for use in drug dosing adjustments.Continue to use estimated creatinine clearance per dosing reference text.Please contact the Clinical Pharmacist for questions. Specimen Blood Performing Organization Address City/State/Zipcode Phone Number [facility] [address] [place] [address] * PTT (APTT) (11/28/2018 5:33 AM CDT) APTT 20.1 (L) 24.0 - 36.5 SEC [facility] Specimen Blood Performing Organization Address City/[facility]/Zipcode Phone Number [facility] [address] [place] [address] * PROTIME INR (PT) (11/28/2018 5:33 AM CDT) INR 1.2 0.8 - 1.2 [facility] Specimen Blood Performing Organization Address City/[facility]/Zipcode Phone Number [facility] [address] [place] [address] * CBC AND DIFF CELLULAR THERAPEUTICS (11/28/2018 5:33 AM CDT) White Blood 4.2 (L) 4.5 - 11.0 K/UL [facility] Cells RBC 2.48 (L) 4.4 - 5.5 M/UL [facility] Hemoglobin 9.3 (L) 13.5 - 16.5 GM/DL [facility] Hematocrit 26.3 (L) 40 - 50 % [facility] MCV 105.7 (H) 80 - 100 FL [facility] MCH 37.5 (H) 26 - 34 PG [facility] MCHC 35.5 32.0 - 36.0 G/DL [facility] RDW 16.5 (H) 11 - 15 % MAIN LAB Platelet Count 38 (L) 150 - 400 K/UL [facility] MPV 8.6 7 - 11 FL [facility] Nucleated RBCs 1 K/UL KU [...] Count Manual Specimen Blood Performing Organization Address City/[facility]/Zipcode Phone Number MAIN LAB [address] [place] [address] * LDH-LACTATE DEHYDROGENASE (11/27/2018 6:06 AM CDT) Lactate 193 100 - 210 U/L MAIN LAB Dehydrogenase Specimen Blood Performing Organization Address City/[facility] Phone Number MA[facility] LAB [address] [place] [address] * URIC ACID (11/27/2018 6:06 AM CDT) Uric Acid 6.1 4.0 - 8.0 MG/DL MAIN LAB Specimen Blood Performing Organization Address [facility] Phone Number MAIN LAB [address] [place] [address] * FIBRINOGEN (11/27/2018 6:06 AM CDT) Fibrinogen 450 (H) 200 - 400 MG/DL MAIN LAB Specimen Blood Performing Organization Address City/[facility] Phone Number MAIN LAB [address] [place] [address] * PHOSPHORUS CELLULAR THERAPEUTICS (11/27/2018 6:06 AM CDT) Phosphorus 2.9Comment: NOTE NEW REFERENCE 2.0 - 4.5 MG/DL MAIN LAB RANGES Specimen Blood Performing Organization Address City/[facility]/Zipcode Phone Number MAIN LAB [address] [place] [address] * MAGNESIUM CELLULAR THERAPEUTICS (11/27/2018 6:06 AM CDT) Magnesium 2.0 1.6 - 2.6 mg/dL MAIN LAB Specimen Blood Performing Organization Address City/[facility]/Zipcode Phone Number MAIN LAB [address] [place] [address] * COMPREHENSIVE METABOLIC PANEL CELLULAR THERAPEUTICS (11/27/2018 [...] LAB CO2 22 21 - 30 MMOL/L [facility] ALT (SGPT) 25 7 - 56 U/L [facility] Anion Gap 7 3 - 12 MAIN LAB eGFR Non 54 (L) >60 mL/min [facility] Comment: Finnish The eGFR is not validated for use in drug dosing adjustments.Continue to use estimated creatinine clearance per dosing reference text.Please contact the Clinical Pharmacist for questions. eGFR >60 >60 mL/min [facility] Finnish Comment: The eGFR is not validated for use in drug dosing adjustments.Continue to use estimated creatinine clearance per dosing reference text.Please contact the Clinical Pharmacist for questions. Specimen Blood Performing Organization Address [facility]/Zipcode Phone Number [facility] [address] [place] [address] * PTT (APTT) (11/27/2018 6:06 AM CDT) APTT 23.6 (L) 24.0 - 36.5 SEC [facility] Specimen Blood Performing Organization Address [facility]/Zipcode Phone Number [facility] [address] [place] [address] * PROTIME INR (PT) (11/27/2018 6:06 AM CDT) INR 1.1 0.8 - 1.2 [facility] Specimen Blood Performing Organization Address [facility]/Zipcode Phone Number [facility] MAIN [facility] [address] [place] [address] * CBC AND DIFF CELLULAR THERAPEUTICS (11/27/2018 6:06 AM CDT) Pathologist [facility] White Blood 2.0 (L) 4.5 - 11.0 [...] Count Manual Specimen Blood Performing Organization Address City/[facility]/Zipcode Phone Number MAIN LAB [address] [place] [address] * VRE SCREEN (11/26/2018 10:00 PM CDT) Battery Name VRE SCREEN MAIN LAB Specimen PERIRECTAL SWAB [facility] Description Special NONE MAIN LAB Requests Culture NO VRE ISOLATED MAIN LAB Report Status FINAL MAIN LAB 11/28/2018 Specimen Perirectal Swab Performing Organization Address City/[facility]/Zipcode Phone Number MAIN LAB [address] [place] [address] * CULTURE-BLOOD W/SENSITIVITY (11/26/2018 9:55 PM CDT) Battery Name BLOOD CULTURE MAIN LAB Specimen BLOOD MAIN LAB Description RIGHT HAND Special NONE [facility] Requests Culture NO GROWTH 5 DAYS MAIN LAB Report Status FINAL MAIN LAB 12/02/2018 Specimen Blood Performing Organization Address City/[facility]/Zipcode Phone Number [facility] [address] [place] [address] * FIBRINOGEN (11/26/2018 9:49 PM CDT) Fibrinogen 449 (H) 200 - 400 MG/DL [facility] Performing Organization Address City/[facility]/Zipcode Phone Number [facility] MAIN LAB [address] [place] [address] * CULTURE-BLOOD W/SENSITIVITY (11/26/2018 9:43 PM CDT) Battery Name BLOOD CULTURE MAIN LAB Specimen BLOOD MAIN LAB Description LEFT HAND Special NONE MAIN LAB Requests Culture NO GROWTH 5 DAYS MAIN LAB Report Status FINAL MAIN LAB 12/02/2018 Specimen Blood Performing Organization Address [place]/[facility] Facility[facility] Phone Number [facility] [address] [place] [address] * 2-D + DOPPLER ECHOCARDIOGRAM (11/26/2018 2:57 [...] PV Odette Lipari, RDCS Definity OTHER OUTSIDE [facility] FS 43.37 28 - 44 % OTHER OUTSIDE LAB EF 73.72 % OTHER OUTSIDE LAB LV mass 145.91 96 - 200 g OTHER OUTSIDE LAB RWT 0.52 <=0.42 OTHER OUTSIDE LAB Aortic valve 1.22 cm2 OTHER OUTSIDE area= LAB AV index 0.26 OTHER OUTSIDE ([place]) LAB E/A ratio 0.66 OTHER OUTSIDE LAB LVOT area 3.80 cm2 OTHER OUTSIDE LAB LVOT stroke 72.23 cm3 OTHER OUTSIDE volume LAB TV rest 33 mmHg OTHER OUTSIDE pulmonary LAB artery pressure E/E' ratio 6.50 OTHER OUTSIDE LAB Right Heart 0.136 m/s OTHER OUTSIDE Systolic TDI S' LAB Left Atrium 14.17 16 - 34 OTHER OUTSIDE Index LAB Cardiology Siemens [id number] OTHER OUTSIDE Ultrasound LAB Machine Left Ventricle [...] 12:37 PM CDT) Impressions Performed At [facility] - [facility]-Lb[facility] Ultrasound [facility] RAD RESULTS Exam Date: 11/26/2018 Exam Type: POC ED US CARDIAC LTD Baster Hand: Joce Elizondo Attending: Hever Guillen Worksheet: ED-Cardiac Clinical Indication(s) for exam: Chest pain Views: Parasternal Long [place]: Limited Parasternal Short [place]: Limited Apical Four-Chamber: Limited Subxiphoid (4 chamber): Limited Subxiphoid IVC: Adequate Apical 2 Chamber: Not obtained Apical Long [place]: Not obtained Subxiphoid LV Short [place]: Not obtained Suprasternal Notch: Not obtained Other: [...] - 12/20/2018 10:10 PM CDT IMPRESSION [facility] - Mkyxf-rr-Zwum Ultrasound Exam Date: 11/26/2018 Exam Type: POC ED US CARDIAC LTD Baster Hand: Joce Elizondo Attending: Hever Guillen Worksheet: ED-Cardiac Clinical Indication(s) for exam: Chest pain Views: Parasternal Long [place]: Limited Parasternal Short [place]: Limited Apical Four-Chamber: Limited Subxiphoid (4 chamber): Limited Subxiphoid IVC: Adequate Apical 2 Chamber: Not obtained Apical Long [place]: Not obtained Subxiphoid LV Short [place]: Not obtained Suprasternal Notch: Not obtained Other: [...] 2018 at 10:08:06 PM Performing Organization Address City/State/[place] Phone Number RAD RESULTS * URINALYSIS, MICROSCOPIC (11/26/2018 11:53 AM CDT) Pathologist [facility] WBCs,UA 0-2 0 - 2 /HPF [facility] RBCs,UA 0-2 0 - 3 /HPF [facility] MucousUA TRACE [facility] Specimen Urine - Urine Performing Organization Address [facility] Phone Number [facility] [address] [place] [address] * URINALYSIS DIPSTICK (11/26/2018 11:53 AM CDT) Color,UA YELLOW [facility] Turbidity,UA CLEAR CLEAR-CLEAR [facility] Specific 1.014 1.003 - 1.035 [facility] [place]-Urine pH,UA 6.0 5.0 - 8.0 [facility] MAIN [...] Specimen Urine - Urine Performing Organization Address [facility] Phone Number [facility] [address] [place] [address] * BNP POC ER (11/26/2018 11:52 AM CDT) BNP POC <15.0 0 - 100 PG/ML [facility] Performing Organization Address [facility] Phone Number [facility] [address] [place] [address] * POC TROPONIN (11/26/2018 11:26 AM CDT) Diahufsl-M-ZCX 0.02 0.00 - 0.05 NG/ML [facility] Performing Organization Address [facility] Phone Number [facility] [address] [place] [address] * URIC ACID (11/26/2018 11:24 AM CDT) Pathologist [facility] Uric Acid 5.9 4.0 - 8.0 MG/DL [facility] Performing Organization Address [facility] Phone Number MAIN LAB [address] [place] [address] * LDH-LACTATE DEHYDROGENASE (11/26/2018 11:24 AM CDT) Lactate 323 (H) 100 - 210 U/L MAIN LAB Dehydrogenase Performing Organization Address [facility] Phone Number MAIN LAB [address] [place] [address] * PERIPHERAL SMEAR (11/26/2018 11:24 AM CDT) [...] indicated in this report. Performing Organization Address City/[facility] Phone Number MAIN LAB [address] [place] [address] * BLOOD BANK SAMPLE HOLD (11/26/2018 11:24 AM CDT) BB Sample hold IN LAB MAIN LAB Performing Organization Address [facility] Phone Number MAIN LAB [address] [place] [address] * LIPASE (11/26/2018 11:24 AM CDT) Lipase 10 (L) 11 - 82 U/L MAIN LAB Specimen Blood Performing Organization Address [facility] Phone Number MAIN LAB [address] [place] [address] * COMPREHENSIVE METABOLIC PANEL (11/26/2018 11:24 AM [...] (L) >60 mL/min [facility] Comment: Finnish The eGFR is not validated for use in drug dosing adjustments.Continue to use estimated creatinine clearance per dosing reference text.Please contact the Clinical Pharmacist for questions. eGFR >60 >60 mL/min [facility] Finnish Comment: The eGFR is not validated for use in drug dosing adjustments.Continue to use estimated creatinine clearance per dosing reference text.Please contact the Clinical Pharmacist for questions. Specimen Blood Performing Organization Address City/State/Zipcode Phone Number MAIN LAB [address] [place] [address] * CBC AND DIFF (11/26/2018 11:24 AM [...] Address City/State/Zipcode Phone Number [facility] [address] [place] [address] * ECG-SCAN (11/26/2018 12:00 AM CDT) Narrative [...] Until Thu11/26/18 at 1514, For Procedure, A fuel distribution system operator may only administer Definity through a saline [...]
--- OUTSIDE RECORDS SUMMARY | 2019-01-10 22:48 | XMS REPORT | Encounter Summary ---
Author Author [facility] Organization [facility] Address Unknown Phone Unavailable Care Team Providers Care Corporate Attorney Name Role Phone Aidan Caraballo PCP Reason for Visit * Auth/Cert Referred By Contact Referred To Contact Status Reason Specialty Diagnoses / Procedures Diagnoses Pancytopenia (HCC) Encounter Details Care Team Description Date Type Department Hever Guillen MD [address] [facility] [place] [address] 11/26/2018 [facility] [address] [facility] [address] [place] [address] Social History Date Tobacco Use [...]
--- OUTSIDE RECORDS SUMMARY | 2019-01-10 22:48 | XMS REPORT | Encounter Summary ---
Author Author [facility] Organization [facility] Address Unknown Phone Unavailable Care Team Providers Care Claims Assistant Name Role Phone Aidan Caraballo PCP Reason for Referral * Transplant (Routine) Referred By Contact Referred To Contact Status Reason Specialty Diagnoses / Procedures Rodrigo Gallegos DO [address] [place] [address] Cc-Ww Bmt Exm [address] Pending Review Specialty Services Oncology Diagnoses Required Acute myeloid leukemia not having achieved remission (HCC) Encounter Details Care Team Description Date Type Department Rodrigo Gallegos DO [address] [place] [address] 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
--- OUTSIDE RECORDS SUMMARY | 2019-01-10 22:49 | XMS REPORT | Continuity of Care Document ---
Author Organization Unknown Address Unknown Allergies Active Description Code Type Severity Reaction Onset Reported/Identified Relationship to Patient Clinical Status Yes sulfamethoxazole [id number] Drug Allergy Unknown Hives 01/08/2019 Yes trimethoprim [id number] Drug Allergy Unknown Hives 01/08/2019 Medications There is no data. Problems Date Dx Coded Attending Type Code Diagnosis Diagnosed By 03/09/2015 EMMANUEL STROUD APRN Ot 327.23 OBSTRUCTIVE SLEEP APNEA (ADULT) (PEDIATR 03/09/2015 EMMANUEL STROUD APRN Ot G47.33 OBSTRUCTIVE SLEEP APNEA (ADULT) (PEDIATR 12/17/2018 MAREN MUSE MD, Ot J44.9 CHRONIC [...] Ot I06.0 RHEUMATIC AORTIC STENOSIS 12/30/2018 MAREN UMSE MD, Ot J44.9 CHRONIC OBSTRUCTIVE PULMONARY DISEASE, U 12/30/2018 MAREN MUSE MD, Ot R06.02 SHORTNESS OF BREATH 12/30/2018 MAREN MUSE MD Ot R09.02 HYPOXEMIA 12/30/2018 MAREN MUSE MD, Ot Z79.899 OTHER TAKER DOWN (CURRENT) DRUG THERAPY 12/30/2018 MAREN MUSE MD, Ot Z85.118 PERSONAL HISTORY OF MALIGNANT NEOPLASM O 12/30/2018 MAREN MUSE MD, Ot Z87.891 PERSONAL HISTORY OF NICOTINE DEPENDENCE 12/30/2018 ALMAZ SAMUEL, MAREN Ot Z92.21 PERSONAL HISTORY OF ANTINEOPLASTIC CHEMO 12/30/2018 CLARITZA MONTEIRO DO Ot Z01.818 ENCOUNTER FOR OTHER PREPROCEDURAL EXAMIN 12/31/2018 CLARITZA MONTEIRO DO Ot Z01.818 ENCOUNTER FOR OTHER PREPROCEDURAL EXAMIN 12/31/2018 CLARITZA MONTEIRO DO Ot D46.9 MYELODYSPLASTIC SYNDROME, UNSPECIFIED 12/31/2018 CLARITZA MONTEIRO DO Ot D61.818 OTHER PANCYTOPENIA 12/31/2018 CLARITZA MONTEIRO DO Ot I10 ESSENTIAL (PRIMARY) HYPERTENSION 12/31/2018 CLARITZA MONTEIRO DO Ot I35.0 NONRHEUMATIC AORTIC (VALVE) STENOSIS 12/31/2018 CLARITZA MONTEIRO DO Ot I87.2 VENOUS INSUFFICIENCY (CHRONIC) (PERIPHER 12/31/2018 CLARITZA MONTEIRO DO Ot K21.9 GASTRO-ESOPHAGEAL REFLUX DISEASE WITHOUT 12/31/2018 CLARITZA MONTEIRO DO Ot Z79.899 OTHER TAKER DOWN (CURRENT) DRUG THERAPY 12/31/2018 CLARITZA MONTEIRO DO Ot Z85.118 PERSONAL HISTORY OF MALIGNANT NEOPLASM O 12/31/2018 CLARITAZ MONTEIRO DO Ot Z87.891 PERSONAL HISTORY OF NICOTINE DEPENDENCE 01/05/2019 CLARITZA MONTEIRO DO Ot D46.9 MYELODYSPLASTIC SYNDROME, UNSPECIFIED 01/05/2019 CLARITZA MONTEIRO DO Ot D61.818 OTHER PANCYTOPENIA 01/05/2019 CLARITZA MONTEIRO DO Ot I10 ESSENTIAL (PRIMARY) HYPERTENSION 01/05/2019 CLARITZA MONTEIRO DO Ot I35.0 NONRHEUMATIC AORTIC (VALVE) STENOSIS 01/05/2019 CLARITZA MONTEIRO DO Ot I87.2 VENOUS INSUFFICIENCY (CHRONIC) (PERIPHER 01/05/2019 CLARITZA MONTEIRO DO Ot K21.9 GASTRO-ESOPHAGEAL REFLUX DISEASE WITHOUT 01/05/2019 CLARITZA MONTEIRO DO Ot Z79.899 OTHER USP (CURRENT) DRUG THERAPY 01/05/2019 CLARITZA MONTEIRO DO Ot Z85.118 PERSONAL HISTORY OF MALIGNANT NEOPLASM O 01/05/2019 CLARITZA MONTEIRO DO Ot Z87.891 PERSONAL HISTORY OF NICOTINE DEPENDENCE 01/06/2019 DEREK ALFORD MD Ot A41.9 SEPSIS, UNSPECIFIED ORGANISM 01/06/2019 DEREK ALFORD MD, Ot D46.9 MYELODYSPLASTIC SYNDROME, UNSPECIFIED 01/06/2019 DEREK ALFORD MD Ot E87.2 ACIDOSIS 01/06/2019 DEREK ALFORD MD Ot I10 ESSENTIAL (PRIMARY) HYPERTENSION 01/06/2019 DEREK ALFORD MD Ot I25.10 ATHSCL HEART DISEASE OF [place] CORONARY 01/06/2019 DEREK ALFORD MD, Ot I35.0 NONRHEUMATIC AORTIC (VALVE) STENOSIS 01/06/2019 DEREK ALFORD MD, Ot J43.9 EMPHYSEMA, UNSPECIFIED 01/06/2019 DEREK ALFORD MD Ot N28.9 DISORDER OF KIDNEY AND URETER, UNSPECIFI 01/06/2019 DEREK ALFORD MD Ot R30.0 DYSURIA 01/06/2019 DEREK ALFORD MD Ot R39.198 OTHER DIFFICULTIES WITH MICTURITION 01/06/2019 DEREK ALFORD MD Ot R65.21 SEVERE SEPSIS WITH SEPTIC SHOCK 01/06/2019 DEREK ALFORD MD Ot T81.44XA SEPSIS FOLLOWING A PROCEDURE, INITIAL EN 01/06/2019 DEREK ALFORD MD Ot Z85.118 PERSONAL HISTORY OF MALIGNANT NEOPLASM O 01/06/2019 DEREK ALFORD MD Ot Z87.891 PERSONAL HISTORY OF NICOTINE DEPENDENCE 01/06/2019 DEREK ALFORD MD Ot Z90.2 ACQUIRED ABSENCE OF LUNG [PART OF] 01/06/2019 DEREK ALFORD MD Ot Z92.21 PERSONAL HISTORY OF ANTINEOPLASTIC CHEMO 01/06/2019 DEREK ALFORD MD Ot Z99.81 DEPENDENCE ON SUPPLEMENTAL OXYGEN 01/07/2019 CLARITZA MONTEIOR DO Ot D46.9 MYELODYSPLASTIC SYNDROME, UNSPECIFIED 01/07/2019 CLARITZA MONTEIRO DO Ot D61.818 OTHER PANCYTOPENIA 01/07/2019 CLARITZA MONTEIRO DO Ot I10 ESSENTIAL (PRIMARY) HYPERTENSION 01/07/2019 CLARIZTA MONTEIRO DO Ot I35.0 NONRHEUMATIC AORTIC (VALVE) STENOSIS 01/07/2019 CLARITZA MONTEIRO DO Ot I87.2 VENOUS INSUFFICIENCY (CHRONIC) (PERIPHER 01/07/2019 CLARITZA MONTEIRO DO Ot K21.9 GASTRO-ESOPHAGEAL REFLUX DISEASE WITHOUT 01/07/2019 CLARITZA MONTEIRO DO Ot Z79.899 OTHER USP (CURRENT) DRUG THERAPY 01/07/2019 CLARITZA MONTEIRO DO Ot Z85.118 PERSONAL HISTORY OF MALIGNANT NEOPLASM O 01/07/2019 CLARITZA MONTEIRO DO, Ot Z87.891 PERSONAL HISTORY OF NICOTINE DEPENDENCE 01/07/2019 DEREK ALFORD MD, Ot A41.9 SEPSIS, UNSPECIFIED ORGANISM 01/07/2019 DEREK ALFORD MD, Ot D46.9 MYELODYSPLASTIC SYNDROME, UNSPECIFIED 01/07/2019 DEREK ALFORD MD Ot E87.2 ACIDOSIS 01/07/2019 DEREK ALFORD MD Ot I10 ESSENTIAL (PRIMARY) HYPERTENSION 01/07/2019 DEREK ALFORD MD, Ot I25.10 ATHSCL HEART DISEASE OF [place] CORONARY 01/07/2019 DEREK ALFORD MD Ot I35.0 NONRHEUMATIC AORTIC (VALVE) STENOSIS 01/07/2019 DEREK ALFORD MD Ot J43.9 EMPHYSEMA, UNSPECIFIED 01/07/2019 DEREK LAFORD MD, Ot N28.9 DISORDER OF KIDNEY AND URETER, UNSPECIFI 01/07/2019 DEREK ALFORD MD Ot R30.0 DYSURIA 01/07/2019 DEREK ALFORD MD Ot R39.198 OTHER DIFFICULTIES WITH MICTURITION 01/07/2019 DEREK ALFORD MD Ot R65.21 SEVERE SEPSIS WITH SEPTIC SHOCK 01/07/2019 DEREK ALFORD MD Ot T81.44XA SEPSIS FOLLOWING A PROCEDURE, INITIAL EN 01/07/2019 DEREK ALFORD MD Ot Z85.118 PERSONAL HISTORY OF MALIGNANT NEOPLASM O 01/07/2019 DEREK ALFORD MD Ot Z87.891 PERSONAL HISTORY OF NICOTINE DEPENDENCE 01/07/2019 DEREK ALFORD MD Ot Z90.2 ACQUIRED ABSENCE OF LUNG [PART OF] 01/07/2019 DEREK ALFORD MD Ot Z92.21 PERSONAL HISTORY OF ANTINEOPLASTIC CHEMO 01/07/2019 DEREK ALFORD MD Ot Z99.81 DEPENDENCE ON SUPPLEMENTAL OXYGEN 01/07/2019 DEREK ALFORD MD, Ot A41.9 SEPSIS, UNSPECIFIED ORGANISM 01/07/2019 DEREK ALFORD MD, Ot D46.9 MYELODYSPLASTIC SYNDROME, UNSPECIFIED 01/07/2019 DEREK ALFORD MD Ot E87.2 ACIDOSIS 01/07/2019 DEREK ALFORD MD Ot I10 ESSENTIAL (PRIMARY) HYPERTENSION 01/07/2019 DEREK ALFORD MD, Ot I25.10 ATHSCL HEART DISEASE OF [place] CORONARY 01/07/2019 DEREK ALFORD MD, Ot I35.0 NONRHEUMATIC AORTIC (VALVE) STENOSIS 01/07/2019 DEREK ALFORD MD, Ot J43.9 EMPHYSEMA, UNSPECIFIED 01/07/2019 DEREK ALFORD MD, Ot N28.9 DISORDER OF KIDNEY AND URETER, UNSPECIFI 01/07/2019 DEREK ALFORD MD, Ot R30.0 DYSURIA 01/07/2019 DEREK ALFORD MD, Ot R39.198 OTHER DIFFICULTIES WITH MICTURITION 01/07/2019 DEREK ALFORD MD, Ot R65.21 SEVERE SEPSIS WITH SEPTIC SHOCK 01/07/2019 DEREK ALFORD MD, Ot T81.44XA SEPSIS FOLLOWING A PROCEDURE, INITIAL EN 01/07/2019 DEREK ALFORD MD, Ot Z85.118 PERSONAL HISTORY OF MALIGNANT NEOPLASM O 01/07/2019 DEREK ALFORD MD, Ot Z87.891 PERSONAL HISTORY OF NICOTINE DEPENDENCE 01/07/2019 DEREK ALFORD MD, Ot Z90.2 ACQUIRED ABSENCE OF LUNG [PART OF] 01/07/2019 DEREK ALFORD MD, Ot Z92.21 PERSONAL HISTORY OF ANTINEOPLASTIC CHEMO 01/07/2019 DEREK ALFORD MD, Ot Z99.81 DEPENDENCE ON SUPPLEMENTAL OXYGEN 01/10/2019 MAREN MUSE MD, Ot D46.9 MYELODYSPLASTIC SYNDROME, UNSPECIFIED 01/10/2019 MAREN MUSE MD Ot I06.0 RHEUMATIC AORTIC STENOSIS 01/10/2019 MAREN MUSE MD, Ot J44.9 CHRONIC OBSTRUCTIVE PULMONARY DISEASE, U 01/10/2019 MAREN MUSE MD Ot R06.02 SHORTNESS OF BREATH 01/10/2019 MAREN MUSE MD Ot R09.02 HYPOXEMIA 01/10/2019 MAREN MUSE MD, Ot Z79.899 OTHER USP (CURRENT) DRUG THERAPY 01/10/2019 MAREN MUSE MD, Ot Z85.118 PERSONAL HISTORY OF MALIGNANT NEOPLASM O 01/10/2019 MAREN MUSE MD, Ot Z87.891 PERSONAL HISTORY OF NICOTINE DEPENDENCE 01/10/2019 MAREN MUSE MD Ot Z92.21 PERSONAL HISTORY OF ANTINEOPLASTIC CHEMO 01/10/2019 MAREN MUSE MD Ot D46.9 MYELODYSPLASTIC SYNDROME, UNSPECIFIED 01/10/2019 MAREN MUSE MD Ot I06.0 RHEUMATIC AORTIC STENOSIS 01/10/2019 MAREN MUSE MD Ot J44.9 CHRONIC OBSTRUCTIVE PULMONARY DISEASE, U 01/10/2019 MAREN MUSE MD Ot R06.02 SHORTNESS OF BREATH 01/10/2019 MAREN MUSE MD Ot R09.02 HYPOXEMIA 01/10/2019 MAREN MUSE MD Ot Z79.899 OTHER TAKER DOWN (CURRENT) DRUG THERAPY 01/10/2019 MAREN MUSE MD Ot Z85.118 PERSONAL HISTORY OF MALIGNANT NEOPLASM O 01/10/2019 MAREN MUSE MD Ot Z87.891 PERSONAL HISTORY OF NICOTINE DEPENDENCE 01/10/2019 MAREN MUSE MD Ot Z92.21 PERSONAL HISTORY OF ANTINEOPLASTIC CHEMO 01/10/2019 MAREN MUSE MD Ot D46.9 MYELODYSPLASTIC SYNDROME, UNSPECIFIED 01/10/2019 MAREN MUSE MD Ot I06.0 RHEUMATIC AORTIC STENOSIS 01/10/2019 MAREN MUSE MD Ot J44.9 CHRONIC OBSTRUCTIVE PULMONARY DISEASE, U 01/10/2019 MAREN MUSE MD Ot R06.02 SHORTNESS OF BREATH 01/10/2019 MAREN MUSE MD Ot R09.02 HYPOXEMIA 01/10/2019 MAREN MUSE MD Ot Z79.899 OTHER USP (CURRENT) DRUG THERAPY 01/10/2019 MAREN MUSE MD Ot Z85.118 PERSONAL HISTORY OF MALIGNANT NEOPLASM O 01/10/2019 MAREN MUSE MD Ot Z87.891 PERSONAL HISTORY OF NICOTINE DEPENDENCE 01/10/2019 MAREN MUSE MD Ot Z92.21 PERSONAL HISTORY OF ANTINEOPLASTIC CHEMO Procedures There is no data. Results Test Result Range PLATELET PHERESIS LR - 12/31/18 06:44 PLATELET PHERESIS LR PRSMD TRFSD 12/31/18 0809 NRG Methicillin resistant Staphylococcus aureus (MRSA) screening culture - 12/31/18 06:55 Methicillin resistant Staphylococcus aureus (MRSA) screening culture NEG NRG Complete blood count (CBC) with automated white blood cell (WBC) differential - 01/01/19 09:30 Blood leukocytes automated count (number/volume) 1.7 10*3/uL 4.3-11.0 Blood erythrocytes automated count (number/volume) 1.94 10*6/uL 4.35-5.85 Venous blood hemoglobin measurement (mass/volume) 6.6 g/dL 13.3-17.7 Blood hematocrit (volume fraction) 20 % 40-54 Automated erythrocyte mean corpuscular volume 101 [foz_us] 80-99 Automated erythrocyte mean corpuscular hemoglobin (mass per erythrocyte) 34 pg 25-34 Automated erythrocyte mean corpuscular hemoglobin concentration measurement (mass/volume) 34 g/dL 32-36 Automated erythrocyte distribution width ratio 17.8 % 10.0- 14.5 Automated blood platelet count (count/volume) 41 10*3/uL 130- 400 Automated blood platelet mean volume measurement 11.4 [foz_us] 7.4-10.4 Automated blood neutrophils/100 leukocytes 61 % 42-75 Automated blood lymphocytes/100 leukocytes 30 % 12-44 Blood monocytes/100 leukocytes 5 % 0-12 Automated blood eosinophils/100 leukocytes 2 % 0-10 Automated blood basophils/100 leukocytes 2 % 0-10 Blood neutrophils automated count (number/volume) 1.0 10*3 1.8-7.8 Blood lymphocytes automated count (number/volume) 0.5 10*3 1.0-4.0 Blood monocytes automated count (number/volume) 0.1 10*3 0.0- 1.0 Automated eosinophil count 0.0 10*3/uL 0.0-0.3 Automated blood basophil count (count/volume) 0.0 10*3/uL 0.0-0.1 PT panel in platelet poor plasma by coagulation assay - 01/01/19 09:30 Prothrombin time (PT) in platelet poor plasma by coagulation assay 15.8 s 12.2-14.7 INR in platelet poor plasma or blood by coagulation assay 1.2 0.8-1.4 Activated partial thromboplastin time (aPTT) in platelet poor plasma bycoagulation assay - 01/01/19 09:30 Activated partial thromboplastin time (aPTT) in platelet poor plasma bycoagulation assay 35 s 24-35 Comprehensive metabolic panel - 01/01/19 09:30 Serum or plasma sodium measurement (moles/volume) 135 mmol/L 135-145 Serum or plasma potassium measurement (moles/volume) 3.8 mmol/L 3.6-5.0 Serum or plasma chloride measurement (moles/volume) 103 mmol/L 98-107 Carbon dioxide 16 mmol/L 21-32 Serum or plasma anion gap determination (moles/volume) 16 mmol/L 5-14 Serum or plasma urea nitrogen measurement (mass/volume) 25 mg/dL 7-18 Serum or plasma creatinine measurement (mass/volume) 1.29 mg/dL 0.60-1.30 Serum or plasma urea nitrogen/creatinine mass ratio 19 NRG Serum or plasma creatinine measurement with calculation of estimated glomerular filtration rate 55 NRG Serum or plasma glucose measurement (mass/volume) 84 mg/dL 70-105 Serum or plasma calcium measurement (mass/volume) 8.7 mg/dL 8.5-10.1 Serum or plasma total bilirubin measurement (mass/volume) 1.3 mg/dL 0.1-1.0 Serum or plasma alkaline phosphatase measurement (enzymatic activity/volume) 56 U/L 40-136 Serum or plasma aspartate aminotransferase measurement (enzymatic activity/volume) 17 U/L 5-34 Serum or plasma alanine aminotransferase measurement (enzymatic activity/volume) 24 U/L 0-55 Serum or plasma protein measurement (mass/volume) 6.2 g/dL 6.4-8.2 Serum or plasma albumin measurement (mass/volume) 3.8 g/dL 3.2-4.5 CALCIUM CORRECTED 8.9 mg/dL 8.5-10.1 Blood lactic acid measurement (moles/volume) - 01/01/19 09:30 Blood lactic acid measurement (moles/volume) 4.08 mmol/L 0.50- 2.00 Bacterial blood culture - 01/01/19 09:30 Bacterial blood culture NG NRG Morning cortisol measurement - 01/01/19 09:30 Cortisol AM 19.4 % 3.7-19.4 Complete urinalysis with reflex to culture - 01/01/19 09:39 Urine color determination YELLOW NRG Urine clarity determination CLEAR NRG Urine pH measurement by test strip 5 5-9 Specific gravity of urine by test strip 1.015 1.016-1.022 Urine protein assay by test strip, semi-quantitative NEGATIVE NEGATIVE Urine glucose detection by automated test strip NEGATIVE NEGATIVE Erythrocytes detection in urine sediment by light microscopy NEGATIVE NEGATIVE Urine ketones detection by automated test strip NEGATIVE NEGATIVE Urine nitrite detection by test strip NEGATIVE NEGATIVE Urine total bilirubin detection by test strip NEGATIVE NEGATIVE Urine urobilinogen measurement by automated test strip (mass/volume) NORMAL NORMAL Urine leukocyte esterase detection by dipstick NEGATIVE NEGATIVE Automated urine sediment erythrocyte count by microscopy (number/high power field) NONE NRG Automated urine sediment leukocyte count by microscopy (number/high power field) NONE NRG Bacteria detection in urine sediment by light microscopy NEGATIVE NRG Crystals detection in urine sediment by light microscopy NONE NRG Casts detection in urine sediment by light microscopy NONE NRG Mucus detection in urine sediment by light microscopy NEGATIVE NRG Complete urinalysis with reflex to culture CULTURE PENDING NRG Bacterial urine culture - 01/01/19 09:39 Bacterial urine culture NG NRG Influenza virus A and B antigen detection - 01/01/19 09:56 FLU RESULT NEGATIVE FOR INFLUENZA A AND B ANTIGENS BY IA NRG PLATELET PHERESIS LR - 01/01/19 09:56 PLATELET PHERESIS LR TRANSFUSED 01/03/19 1013 NRG RED CELLS LEUKO REDUCED AS1 - 01/01/19 09:56 RED CELLS LEUKO REDUCED AS1 TRANSFUSED 01/02/19 0826 NRG Blood type T Indirect antibody screen panel - 01/01/19 09:56 ABO+Rh group OP NRG Transfusion band number [id number] NRG Blood group antibody screen NEGATIVE NRG Bacterial blood culture - 01/01/19 09:56 Bacterial blood culture NG NRG Serum or plasma lactate measurement (moles/volume) - 01/01/19 11:14 Serum or plasma lactate measurement (moles/volume) 2.20 mmol/L 0.50-2.00 Methicillin resistant Staphylococcus aureus (MRSA) screening culture - 01/01/19 12:42 Methicillin resistant Staphylococcus aureus (MRSA) screening culture NEG NRG Complete blood count (CBC) with automated white blood cell (WBC) differential - 01/02/19 02:51 Blood leukocytes automated count (number/volume) 1.8 10*3/uL 4.3-11.0 Blood erythrocytes automated count (number/volume) 1.79 10*6/uL 4.35-5.85 Venous blood hemoglobin measurement (mass/volume) 5.9 g/dL 13.3-17.7 Blood hematocrit (volume fraction) 17 % 40-54 Automated erythrocyte mean corpuscular volume 96 [foz_us] 80-99 Automated erythrocyte mean corpuscular hemoglobin (mass per erythrocyte) 33 pg 25-34 Automated erythrocyte mean corpuscular hemoglobin concentration measurement (mass/volume) 35 g/dL 32-36 Automated erythrocyte distribution width ratio 19.1 % 10.0- 14.5 Automated blood platelet count (count/volume) 22 10*3/uL 130- 400 Automated blood platelet mean volume measurement 10.0 [foz_us] 7.4-10.4 Automated blood neutrophils/100 leukocytes 81 % 42-75 Automated blood lymphocytes/100 leukocytes 13 % 12-44 Blood monocytes/100 leukocytes 3 % 0-12 Automated blood eosinophils/100 leukocytes 1 % 0-10 Automated blood basophils/100 leukocytes 2 % 0-10 Blood neutrophils automated count (number/volume) 1.4 10*3 1.8-7.8 Blood lymphocytes automated count (number/volume) 0.2 10*3 1.0-4.0 Blood monocytes automated count (number/volume) 0.1 10*3 0.0- 1.0 Automated eosinophil count 0.0 10*3/uL 0.0-0.3 Automated blood basophil count (count/volume) 0.0 10*3/uL 0.0-0.1 Comprehensive metabolic panel - 01/02/19 02:51 Serum or plasma sodium measurement (moles/volume) 137 mmol/L 135-145 Serum or plasma potassium measurement (moles/volume) 3.3 mmol/L 3.6-5.0 Serum or plasma chloride measurement (moles/volume) 112 mmol/L 98-107 Carbon dioxide 16 mmol/L 21-32 Serum or plasma anion gap determination (moles/volume) 9 mmol/L 5-14 Serum or plasma urea nitrogen measurement (mass/volume) 20 mg/dL 7-18 Serum or plasma creatinine measurement (mass/volume) 1.17 mg/dL 0.60-1.30 Serum or plasma urea nitrogen/creatinine mass ratio 17 NRG Serum or plasma creatinine measurement with calculation of estimated glomerular filtration rate > NRG Serum or plasma glucose measurement (mass/volume) 181 mg/dL 70-105 Serum or plasma calcium measurement (mass/volume) 7.7 mg/dL 8.5-10.1 Serum or plasma total bilirubin measurement (mass/volume) 0.9 mg/dL 0.1-1.0 Serum or plasma alkaline phosphatase measurement (enzymatic activity/volume) 45 U/L 40-136 Serum or plasma aspartate aminotransferase measurement (enzymatic activity/volume) 36 U/L 5-34 Serum or plasma alanine aminotransferase measurement (enzymatic activity/volume) 45 U/L 0-55 Serum or plasma protein measurement (mass/volume) 4.8 g/dL 6.4-8.2 Serum or plasma albumin measurement (mass/volume) 3.0 g/dL 3.2-4.5 CALCIUM CORRECTED 8.5 mg/dL 8.5-10.1 Serum or plasma phosphate measurement (mass/volume) - 01/02/19 02:51 Serum or plasma phosphate measurement (mass/volume) 3.8 mg/dL 2.3-4.7 Magnesium - 01/02/19 02:51 Magnesium 2.0 mg/dL 1.8-2.4 Whole blood hemoglobin and hematocrit panel - 01/02/19 12:00 Venous blood hemoglobin measurement (mass/volume) 7.3 g/dL 13.3-17.7 Blood hematocrit (volume fraction) 21 % 40-54 Whole blood hemoglobin and hematocrit panel - 01/02/19 17:55 Venous blood hemoglobin measurement (mass/volume) 7.2 g/dL 13.3-17.7 Blood hematocrit (volume fraction) 21 % 40-54 Complete blood count (CBC) with automated white blood cell (WBC) differential - 01/03/19 01:25 Blood leukocytes automated count (number/volume) 1.5 10*3/uL 4.3-11.0 Blood erythrocytes automated count (number/volume) 2.16 10*6/uL 4.35-5.85 Venous blood hemoglobin measurement (mass/volume) 6.9 g/dL 13.3-17.7 Blood hematocrit (volume fraction) 20 % 40-54 Automated erythrocyte mean corpuscular volume 92 [foz_us] 80-99 Automated erythrocyte mean corpuscular hemoglobin (mass per erythrocyte) 32 pg 25-34 Automated erythrocyte mean corpuscular hemoglobin concentration measurement (mass/volume) 35 g/dL 32-36 Automated erythrocyte distribution width ratio 19.7 % 10.0- 14.5 Automated blood platelet count (count/volume) 24 10*3/uL 130- 400 Automated blood platelet mean volume measurement 9.9 [foz_us] 7.4-10.4 Automated blood neutrophils/100 leukocytes 80 % 42-75 Automated blood lymphocytes/100 leukocytes 17 % 12-44 Blood monocytes/100 leukocytes 3 % 0-12 Automated blood eosinophils/100 leukocytes 0 % 0-10 Automated blood basophils/100 leukocytes 1 % 0-10 Blood neutrophils automated count (number/volume) 1.2 10*3 1.8-7.8 Blood lymphocytes automated count (number/volume) 0.3 10*3 1.0-4.0 Blood monocytes automated count (number/volume) 0.0 10*3 0.0- 1.0 Automated eosinophil count 0.0 10*3/uL 0.0-0.3 Automated blood basophil count (count/volume) 0.0 10*3/uL 0.0-0.1 Whole blood basic metabolic panel - 01/03/19 01:25 Serum or plasma sodium measurement (moles/volume) 142 mmol/L 135-145 Serum or plasma potassium measurement (moles/volume) 3.3 mmol/L 3.6-5.0 Serum or plasma chloride measurement (moles/volume) 114 mmol/L 98-107 Carbon dioxide 17 mmol/L 21-32 Serum or plasma anion gap determination (moles/volume) 11 mmol/L 5-14 Serum or plasma urea nitrogen measurement (mass/volume) 20 mg/dL 7-18 Serum or plasma creatinine measurement (mass/volume) 0.94 mg/dL 0.60-1.30 Serum or plasma urea nitrogen/creatinine mass ratio 21 NRG Serum or plasma creatinine measurement with calculation of estimated glomerular filtration rate > NRG Serum or plasma glucose measurement (mass/volume) 180 mg/dL 70-105 Serum or plasma calcium measurement (mass/volume) 7.9 mg/dL 8.5-10.1 Serum or plasma phosphate measurement (mass/volume) - 01/03/19 01:25 Serum or plasma phosphate measurement (mass/volume) 2.3 mg/dL 2.3-4.7 Magnesium - 01/03/19 01:25 Magnesium 1.9 mg/dL 1.8-2.4 Vancomycin trough - 01/03/19 01:25 Vancomycin trough 15.2 ug/mL 10.0-20.0 Whole blood hemoglobin and hematocrit panel - 01/03/19 08:08 Venous blood hemoglobin measurement (mass/volume) 7.8 g/dL 13.3-17.7 Blood hematocrit (volume fraction) 22 % 40-54 Blood lactic acid measurement (moles/volume) - 01/03/19 08:08 Blood lactic acid measurement (moles/volume) 2.30 mmol/L 0.50- 2.00 Whole blood hemoglobin and hematocrit panel - 01/03/19 12:06 Venous blood hemoglobin measurement (mass/volume) 8.1 g/dL 13.3-17.7 Blood hematocrit (volume fraction) 23 % 40-54 Serum or plasma lactate measurement (moles/volume) - 01/03/19 12:06 Serum or plasma lactate measurement (moles/volume) 3.37 mmol/L 0.50-2.00 Whole blood hemoglobin and hematocrit panel - 01/03/19 18:00 Venous blood hemoglobin measurement (mass/volume) 7.8 g/dL 13.3-17.7 Blood hematocrit (volume fraction) 22 % 40-54 Whole blood hemoglobin and hematocrit panel - 01/04/19 00:10 Venous blood hemoglobin measurement (mass/volume) 7.4 g/dL 13.3-17.7 Blood hematocrit (volume fraction) 21 % 40-54 Complete blood count (CBC) with automated white blood cell (WBC) differential - 01/04/19 06:40 Blood leukocytes automated count (number/volume) 2.0 10*3/uL 4.3-11.0 Blood erythrocytes automated count (number/volume) 2.34 10*6/uL 4.35-5.85 Venous blood hemoglobin measurement (mass/volume) 7.3 g/dL 13.3-17.7 Blood hematocrit (volume fraction) 21 % 40-54 Automated erythrocyte mean corpuscular volume 91 [foz_us] 80-99 Automated erythrocyte mean corpuscular hemoglobin (mass per erythrocyte) 31 pg 25-34 Automated erythrocyte mean corpuscular hemoglobin concentration measurement (mass/volume) 34 g/dL 32-36 Automated erythrocyte distribution width ratio 18.7 % 10.0- 14.5 Automated blood platelet count (count/volume) 28 10*3/uL 130- 400 Automated blood platelet mean volume measurement 8.0 [foz_us] 7.4-10.4 Automated blood neutrophils/100 leukocytes 62 % 42-75 Automated blood lymphocytes/100 leukocytes 27 % 12-44 Blood monocytes/100 leukocytes 3 % 0-12 Automated blood eosinophils/100 leukocytes 7 % 0-10 Automated blood basophils/100 leukocytes 1 % 0-10 Blood neutrophils automated count (number/volume) 1.2 10*3 1.8-7.8 Blood lymphocytes automated count (number/volume) 0.5 10*3 1.0-4.0 Blood monocytes automated count (number/volume) 0.1 10*3 0.0- 1.0 Automated eosinophil count 0.1 10*3/uL 0.0-0.3 Automated blood basophil count (count/volume) 0.0 10*3/uL 0.0-0.1 Whole blood basic metabolic panel - 01/04/19 06:40 Serum or plasma sodium measurement (moles/volume) 139 mmol/L 135-145 Serum or plasma potassium measurement (moles/volume) 3.3 mmol/L 3.6-5.0 Serum or plasma chloride measurement (moles/volume) 113 mmol/L 98-107 Carbon dioxide 19 mmol/L 21-32 Serum or plasma anion gap determination (moles/volume) 7 mmol/L 5-14 Serum or plasma urea nitrogen measurement (mass/volume) 17 mg/dL 7-18 Serum or plasma creatinine measurement (mass/volume) 0.84 mg/dL 0.60-1.30 Serum or plasma urea nitrogen/creatinine mass ratio 20 NRG Serum or plasma creatinine measurement with calculation of estimated glomerular filtration rate > NRG Serum or plasma glucose measurement (mass/volume) 98 mg/dL 70-105 Serum or plasma calcium measurement (mass/volume) 8.0 mg/dL 8.5-10.1 Blood lactic acid measurement (moles/volume) - 01/04/19 10:15 Blood lactic acid measurement (moles/volume) 3.51 mmol/L 0.50- 2.00 Serum or plasma lithium measurement (moles/volume) - 01/04/19 10:15 BNP level 403.9 pg/mL <100.0 Serum or plasma lactate measurement (moles/volume) - 01/04/19 12:25 Serum or plasma lactate measurement (moles/volume) 3.24 mmol/L 0.50-2.00 Complete blood count (CBC) with automated white blood cell (WBC) differential - 01/05/19 06:52 Blood leukocytes automated count (number/volume) 1.2 10*3/uL 4.3-11.0 Blood erythrocytes automated count (number/volume) 2.07 10*6/uL 4.35-5.85 Venous blood hemoglobin measurement (mass/volume) 6.5 g/dL 13.3-17.7 Blood hematocrit (volume fraction) 19 % 40-54 Automated erythrocyte mean corpuscular volume 91 [foz_us] 80-99 Automated erythrocyte mean corpuscular hemoglobin (mass per erythrocyte) 31 pg 25-34 Automated erythrocyte mean corpuscular hemoglobin concentration measurement (mass/volume) 34 g/dL 32-36 Automated erythrocyte distribution width ratio 18.4 % 10.0- 14.5 Automated blood platelet count (count/volume) 22 10*3/uL 130- 400 Automated blood platelet mean volume measurement 10.2 [foz_us] 7.4-10.4 Automated blood neutrophils/100 leukocytes 77 % 42-75 Automated blood lymphocytes/100 leukocytes 17 % 12-44 Blood monocytes/100 leukocytes 4 % 0-12 Automated blood eosinophils/100 leukocytes 0 % 0-10 Automated blood basophils/100 leukocytes 2 % 0-10 Blood neutrophils automated count (number/volume) 0.9 10*3 1.8-7.8 Blood lymphocytes automated count (number/volume) 0.2 10*3 1.0-4.0 Blood monocytes automated count (number/volume) 0.1 10*3 0.0- 1.0 Automated eosinophil count 0.0 10*3/uL 0.0-0.3 Automated blood basophil count (count/volume) 0.0 10*3/uL 0.0-0.1 Whole blood basic metabolic panel - 01/05/19 06:52 Serum or plasma sodium measurement (moles/volume) 140 mmol/L 135-145 Serum or plasma potassium measurement (moles/volume) 3.2 mmol/L 3.6-5.0 Serum or plasma chloride measurement (moles/volume) 107 mmol/L 98-107 Carbon dioxide 22 mmol/L 21-32 Serum or plasma anion gap determination (moles/volume) 11 mmol/L 5-14 Serum or plasma urea nitrogen measurement (mass/volume) 19 mg/dL 7-18 Serum or plasma creatinine measurement (mass/volume) 0.84 mg/dL 0.60-1.30 Serum or plasma urea nitrogen/creatinine mass ratio 23 NRG Serum or plasma creatinine measurement with calculation of estimated glomerular filtration rate > NRG Serum or plasma glucose measurement (mass/volume) 148 mg/dL 70-105 Serum or plasma calcium measurement (mass/volume) 8.0 mg/dL 8.5-10.1 Serum or plasma lithium measurement (moles/volume) - 01/05/19 06:52 BNP level 175.9 pg/mL <100.0 PLATELET PHERESIS LR - 01/05/19 09:10 PLATELET PHERESIS LR TRANSFUSED 01/07/19 0806 NRG RED CELLS LEUKO REDUCED AS1 - 01/05/19 09:10 RED CELLS LEUKO REDUCED AS1 TRANSFUSED 01/05/19 1141 NRG Blood type T Indirect antibody screen panel - 01/05/19 09:10 ABO+Rh group OP NRG Transfusion band number [id number] NRG Blood group antibody screen NEGATIVE NRG Complete blood count (CBC) with automated white blood cell (WBC) differential - 01/06/19 07:19 Blood leukocytes automated count (number/volume) 1.7 10*3/uL 4.3-11.0 Blood erythrocytes automated count (number/volume) 2.32 10*6/uL 4.35-5.85 Venous blood hemoglobin measurement (mass/volume) 7.3 g/dL 13.3-17.7 Blood hematocrit (volume fraction) 21 % 40-54 Automated erythrocyte mean corpuscular volume 90 [foz_us] 80-99 Automated erythrocyte mean corpuscular hemoglobin (mass per erythrocyte) 32 pg 25-34 Automated erythrocyte mean corpuscular hemoglobin concentration measurement (mass/volume) 35 g/dL 32-36 Automated erythrocyte distribution width ratio 17.8 % 10.0- 14.5 Automated blood platelet count (count/volume) 16 10*3/uL 130- 400 Automated blood platelet mean volume measurement 10.9 [foz_us] 7.4-10.4 Automated blood neutrophils/100 leukocytes 69 % 42-75 Automated blood lymphocytes/100 leukocytes 22 % 12-44 Blood monocytes/100 leukocytes 6 % 0-12 Automated blood eosinophils/100 leukocytes 0 % 0-10 Automated blood basophils/100 leukocytes 4 % 0-10 Blood neutrophils automated count (number/volume) 1.2 10*3 1.8-7.8 Blood lymphocytes automated count (number/volume) 0.4 10*3 1.0-4.0 Blood monocytes automated count (number/volume) 0.1 10*3 0.0- 1.0 Automated eosinophil count 0.0 10*3/uL 0.0-0.3 Automated blood basophil count (count/volume) 0.1 10*3/uL 0.0-0.1 Whole blood basic metabolic panel - 01/06/19 07:19 Serum or plasma sodium measurement (moles/volume) 138 mmol/L 135-145 Serum or plasma potassium measurement (moles/volume) 3.0 mmol/L 3.6-5.0 Serum or plasma chloride measurement (moles/volume) 104 mmol/L 98-107 Carbon dioxide 24 mmol/L 21-32 Serum or plasma anion gap determination (moles/volume) 10 mmol/L 5-14 Serum or plasma urea nitrogen measurement (mass/volume) 23 mg/dL 7-18 Serum or plasma creatinine measurement (mass/volume) 0.83 mg/dL 0.60-1.30 Serum or plasma urea nitrogen/creatinine mass ratio 28 NRG Serum or plasma creatinine measurement with calculation of estimated glomerular filtration rate > NRG Serum or plasma glucose measurement (mass/volume) 149 mg/dL 70-105 Serum or plasma calcium measurement (mass/volume) 8.1 mg/dL 8.5-10.1 Complete blood count (CBC) with automated white blood cell (WBC) differential - 01/07/19 06:15 Blood leukocytes automated count (number/volume) 1.2 10*3/uL 4.3-11.0 Blood erythrocytes automated count (number/volume) 2.34 10*6/uL 4.35-5.85 Venous blood hemoglobin measurement (mass/volume) 7.3 g/dL 13.3-17.7 Blood hematocrit (volume fraction) 21 % 40-54 Automated erythrocyte mean corpuscular volume 91 [foz_us] 80-99 Automated erythrocyte mean corpuscular hemoglobin (mass per erythrocyte) 31 pg 25-34 Automated erythrocyte mean corpuscular hemoglobin concentration measurement (mass/volume) 34 g/dL 32-36 Automated erythrocyte distribution width ratio 17.7 % 10.0- 14.5 Automated blood platelet count (count/volume) 11 10*3/uL 130- 400 Automated blood platelet mean volume measurement TNP 7.4- 10.4 Automated blood neutrophils/100 leukocytes 72 % 42-75 Automated blood lymphocytes/100 leukocytes 21 % 12-44 Blood monocytes/100 leukocytes 3 % 0-12 Automated blood eosinophils/100 leukocytes 0 % 0-10 Automated blood basophils/100 leukocytes 3 % 0-10 Blood neutrophils automated count (number/volume) 0.9 10*3 1.8-7.8 Blood lymphocytes automated count (number/volume) 0.3 10*3 1.0-4.0 Blood monocytes automated count (number/volume) 0.0 10*3 0.0- 1.0 Automated eosinophil count 0.0 10*3/uL 0.0-0.3 Automated blood basophil count (count/volume) 0.0 10*3/uL 0.0-0.1 Whole blood basic metabolic panel - 01/07/19 06:15 Serum or plasma sodium measurement (moles/volume) 140 mmol/L 135-145 Serum or plasma potassium measurement (moles/volume) 3.1 mmol/L 3.6-5.0 Serum or plasma chloride measurement (moles/volume) 105 mmol/L 98-107 Carbon dioxide 23 mmol/L 21-32 Serum or plasma anion gap determination (moles/volume) 12 mmol/L 5-14 Serum or plasma urea nitrogen measurement (mass/volume) 21 mg/dL 7-18 Serum or plasma creatinine measurement (mass/volume) 0.86 mg/dL 0.60-1.30 Serum or plasma urea nitrogen/creatinine mass ratio 24 NRG Serum or plasma creatinine measurement with calculation of estimated glomerular filtration rate > NRG Serum or plasma glucose measurement (mass/volume) 136 mg/dL 70-105 Serum or plasma calcium measurement (mass/volume) 8.2 mg/dL 8.5-10.1 Complete blood count (CBC) with automated white blood cell (WBC) differential - 01/08/19 13:55 Blood leukocytes automated count (number/volume) 2.5 10*3/uL 4.3-11.0 Blood erythrocytes automated count (number/volume) 2.29 10*6/uL 4.35-5.85 Venous blood hemoglobin measurement (mass/volume) 7.2 g/dL 13.3-17.7 Blood hematocrit (volume fraction) 21 % 40-54 Automated erythrocyte mean corpuscular volume 91 [foz_us] 80-99 Automated erythrocyte mean corpuscular hemoglobin (mass per erythrocyte) 31 pg 25-34 Automated erythrocyte mean corpuscular hemoglobin concentration measurement (mass/volume) 34 g/dL 32-36 Automated erythrocyte distribution width ratio 17.2 % 10.0- 14.5 Automated blood platelet count (count/volume) 17 10*3/uL 130- 400 Automated blood platelet mean volume measurement 9.5 [foz_us] 7.4-10.4 Automated blood neutrophils/100 leukocytes 72 % 42-75 Automated blood lymphocytes/100 leukocytes 23 % 12-44 Blood monocytes/100 leukocytes 2 % 0-12 Automated blood eosinophils/100 leukocytes 1 % 0-10 Automated blood basophils/100 leukocytes 2 % 0-10 Blood neutrophils automated count (number/volume) 1.8 10*3 1.8-7.8 Blood lymphocytes automated count (number/volume) 0.6 10*3 1.0-4.0 Blood monocytes automated count (number/volume) 0.0 10*3 0.0- 1.0 Automated eosinophil count 0.0 10*3/uL 0.0-0.3 Automated blood basophil count (count/volume) 0.1 10*3/uL 0.0-0.1 Blood lactic acid measurement (moles/volume) - 01/08/19 13:55 Blood lactic acid measurement (moles/volume) 4.60 mmol/L 0.50- 2.00 Comprehensive metabolic panel - 01/08/19 13:55 Serum or plasma sodium measurement (moles/volume) 135 mmol/L 135-145 Serum or plasma potassium measurement (moles/volume) 3.0 mmol/L 3.6-5.0 Serum or plasma chloride measurement (moles/volume) 102 mmol/L 98-107 Carbon dioxide 21 mmol/L 21-32 Serum or plasma anion gap determination (moles/volume) 12 mmol/L 5-14 Serum or plasma urea nitrogen measurement (mass/volume) 27 mg/dL 7-18 Serum or plasma creatinine measurement (mass/volume) 0.94 mg/dL 0.60-1.30 Serum or plasma urea nitrogen/creatinine mass ratio 29 NRG Serum or plasma creatinine measurement with calculation of estimated glomerular filtration rate > NRG Serum or plasma glucose measurement (mass/volume) 178 mg/dL 70-105 Serum or plasma calcium measurement (mass/volume) 8.0 mg/dL 8.5-10.1 Serum or plasma total bilirubin measurement (mass/volume) 1.1 mg/dL 0.1-1.0 Serum or plasma alkaline phosphatase measurement (enzymatic activity/volume) 67 U/L 40-136 Serum or plasma aspartate aminotransferase measurement (enzymatic activity/volume) 36 U/L 5-34 Serum or plasma alanine aminotransferase measurement (enzymatic activity/volume) 67 U/L 0-55 Serum or plasma protein measurement (mass/volume) 5.2 g/dL 6.4-8.2 Serum or plasma albumin measurement (mass/volume) 3.2 g/dL 3.2-4.5 CALCIUM CORRECTED 8.6 mg/dL 8.5-10.1 Serum or plasma lithium measurement (moles/volume) - 01/08/19 13:55 BNP level 226.1 pg/mL <100.0 Serum or plasma troponin i.cardiac measurement (mass/volume) - 01/08/19 13:55 Serum or plasma troponin i.cardiac measurement (mass/volume) 0.048 ng/mL <0.028 PT panel in platelet poor plasma by coagulation assay - 01/08/19 13:55 Prothrombin time (PT) in platelet poor plasma by coagulation assay 14.8 s 12.2-14.7 INR in platelet poor plasma or blood by coagulation assay 1.1 0.8-1.4 Activated partial thromboplastin time (aPTT) in platelet poor plasma bycoagulation assay - 01/08/19 13:55 Activated partial thromboplastin time (aPTT) in platelet poor plasma bycoagulation assay 28 s 24-35 Bacterial blood culture - 01/08/19 13:55 Bacterial blood culture NG NRG Bacterial blood culture - 01/08/19 14:10 Bacterial blood culture NG NRG Sputum Gram stain - 01/08/19 15:01 Sputum Gram stain Moderate Gram positive cocci NRG Bacterial sputum culture - 01/08/19 15:01 FREE TEXT EXTERNAL RAPID GROWER, ID TO FOLLOW NRG QUANTITY OF GROWTH Rare NR Bacterial sputum culture [id number] NR Complete urinalysis with reflex to culture - 01/08/19 15:22 Urine color determination YELLOW NRG Urine clarity determination CLEAR NRG Urine pH measurement by test strip 7 5-9 Specific gravity of urine by test strip 1.005 1.016-1.022 Urine protein assay by test strip, semi-quantitative 1+ NEGATIVE Urine glucose detection by automated test strip NEGATIVE NEGATIVE Erythrocytes detection in urine sediment by light microscopy NEGATIVE NEGATIVE Urine ketones detection by automated test strip NEGATIVE NEGATIVE Urine nitrite detection by test strip NEGATIVE NEGATIVE Urine total bilirubin detection by test strip NEGATIVE NEGATIVE Urine urobilinogen measurement by automated test strip (mass/volume) 4 mg/dL NORMAL Urine leukocyte esterase detection by dipstick 1+ NEGATIVE Automated urine sediment erythrocyte count by microscopy (number/high power field) NONE NRG Automated urine sediment leukocyte count by microscopy (number/high power field) [HPF] NRG Bacteria detection in urine sediment by light microscopy NEGATIVE NRG Crystals detection in urine sediment by light microscopy NONE NRG Casts detection in urine sediment by light microscopy NONE NRG Mucus detection in urine sediment by light microscopy SMALL NRG Complete urinalysis with reflex to culture NO NRG Bacterial urine culture - 01/08/19 15:22 Bacterial urine culture NG NRG Serum or plasma lactate measurement (moles/volume) - 01/08/19 15:52 Serum or plasma lactate measurement (moles/volume) 2.84 mmol/L 0.50-2.00 Complete blood count (CBC) with automated white blood cell (WBC) differential - 01/09/19 04:55 Blood leukocytes automated count (number/volume) 1.6 10*3/uL 4.3-11.0 Blood erythrocytes automated count (number/volume) 1.95 10*6/uL 4.35-5.85 Venous blood hemoglobin measurement (mass/volume) 6.0 g/dL 13.3-17.7 Blood hematocrit (volume fraction) 18 % 40-54 Automated erythrocyte mean corpuscular volume 92 [foz_us] 80-99 Automated erythrocyte mean corpuscular hemoglobin (mass per erythrocyte) 31 pg 25-34 Automated erythrocyte mean corpuscular hemoglobin concentration measurement (mass/volume) 33 g/dL 32-36 Automated erythrocyte distribution width ratio 17.1 % 10.0- 14.5 Automated blood platelet count (count/volume) 10 10*3/uL 130- 400 Automated blood platelet mean volume measurement 7.7 [foz_us] 7.4-10.4 Automated blood neutrophils/100 leukocytes 71 % 42-75 Automated blood lymphocytes/100 leukocytes 20 % 12-44 Blood monocytes/100 leukocytes 7 % 0-12 Automated blood eosinophils/100 leukocytes 1 % 0-10 Automated blood basophils/100 leukocytes 2 % 0-10 Blood neutrophils automated count (number/volume) 1.1 10*3 1.8-7.8 Blood lymphocytes automated count (number/volume) 0.3 10*3 1.0-4.0 Blood monocytes automated count (number/volume) 0.1 10*3 0.0- 1.0 Automated eosinophil count 0.0 10*3/uL 0.0-0.3 Automated blood basophil count (count/volume) 0.0 10*3/uL 0.0-0.1 Comprehensive metabolic panel - 01/09/19 04:55 Serum or plasma sodium measurement (moles/volume) 139 mmol/L 135-145 Serum or plasma potassium measurement (moles/volume) 3.4 mmol/L 3.6-5.0 Serum or plasma chloride measurement (moles/volume) 107 mmol/L 98-107 Carbon dioxide 23 mmol/L 21-32 Serum or plasma anion gap determination (moles/volume) 9 mmol/L 5-14 Serum or plasma urea nitrogen measurement (mass/volume) 22 mg/dL 7-18 Serum or plasma creatinine measurement (mass/volume) 0.90 mg/dL 0.60-1.30 Serum or plasma urea nitrogen/creatinine mass ratio 24 NRG Serum or plasma creatinine measurement with calculation of estimated glomerular filtration rate > NRG Serum or plasma glucose measurement (mass/volume) 139 mg/dL 70-105 Serum or plasma calcium measurement (mass/volume) 8.1 mg/dL 8.5-10.1 Serum or plasma total bilirubin measurement (mass/volume) 1.0 mg/dL 0.1-1.0 Serum or plasma alkaline phosphatase measurement (enzymatic activity/volume) 52 U/L 40-136 Serum or plasma aspartate aminotransferase measurement (enzymatic activity/volume) 21 U/L 5-34 Serum or plasma alanine aminotransferase measurement (enzymatic activity/volume) 55 U/L 0-55 Serum or plasma protein measurement (mass/volume) 4.7 g/dL 6.4-8.2 Serum or plasma albumin measurement (mass/volume) 2.9 g/dL 3.2-4.5 CALCIUM CORRECTED 9.0 mg/dL 8.5-10.1 PLATELET PHERESIS LR - 01/09/19 06:18 PLATELET PHERESIS LR TRANSFUSED 01/10/19 0737 [facility] RED CELLS LEUKO REDUCED AS1 - 01/09/19 06:18 RED CELLS LEUKO REDUCED AS1 TRANSFUSED 01/09/19 1553 [facility] Blood type T Indirect antibody screen panel - 01/09/19 06:18 ABO+Rh group OP NRG Transfusion band number [id number] [facility] Blood group antibody screen NEGATIVE [facility] Venous blood hemoglobin measurement (mass/volume) - 01/09/19 21:33 Venous blood hemoglobin measurement (mass/volume) 7.7 g/dL 13.3-17.7 Complete blood count (CBC) with automated white blood cell (WBC) differential - 01/10/19 05:25 Blood leukocytes automated count (number/volume) 2.9 10*3/uL 4.3-11.0 Blood erythrocytes automated count (number/volume) 2.63 10*6/uL 4.35-5.85 Venous blood hemoglobin measurement (mass/volume) 8.0 g/dL 13.3-17.7 Blood hematocrit (volume fraction) 23 % 40-54 Automated erythrocyte mean corpuscular volume 89 [foz_us] 80-99 Automated erythrocyte mean corpuscular hemoglobin (mass per erythrocyte) 30 pg 25-34 Automated erythrocyte mean corpuscular hemoglobin concentration measurement (mass/volume) 34 g/dL 32-36 Automated erythrocyte distribution width ratio 16.7 % 10.0- 14.5 Automated blood platelet count (count/volume) 14 10*3/uL 130- 400 Automated blood platelet mean volume measurement 11.0 [foz_us] 7.4-10.4 Automated blood neutrophils/100 leukocytes 62 % 42-75 Automated blood lymphocytes/100 leukocytes 27 % 12-44 Blood monocytes/100 leukocytes 9 % 0-12 Automated blood eosinophils/100 leukocytes 2 % 0-10 Automated blood basophils/100 leukocytes 1 % 0-10 Blood neutrophils automated count (number/volume) 1.8 10*3 1.8-7.8 Blood lymphocytes automated count (number/volume) 0.8 10*3 1.0-4.0 Blood monocytes automated count (number/volume) 0.3 10*3 0.0- 1.0 Automated eosinophil count 0.1 10*3/uL 0.0-0.3 Automated blood basophil count (count/volume) 0.0 10*3/uL 0.0-0.1 Comprehensive metabolic panel - 01/10/19 05:25 Serum or plasma sodium measurement (moles/volume) 136 mmol/L 135-145 Serum or plasma potassium measurement (moles/volume) 3.0 mmol/L 3.6-5.0 Serum or plasma chloride measurement (moles/volume) 106 mmol/L 98-107 Carbon dioxide 21 mmol/L 21-32 Serum or plasma anion gap determination (moles/volume) 9 mmol/L 5-14 Serum or plasma urea nitrogen measurement (mass/volume) 16 mg/dL 7-18 Serum or plasma creatinine measurement (mass/volume) 0.97 mg/dL 0.60-1.30 Serum or plasma urea nitrogen/creatinine mass ratio 16 NRG Serum or plasma creatinine measurement with calculation of estimated glomerular filtration rate > NRG Serum or plasma glucose measurement (mass/volume) 85 mg/dL 70-105 Serum or plasma calcium measurement (mass/volume) 7.7 mg/dL 8.5-10.1 Serum or plasma total bilirubin measurement (mass/volume) 1.3 mg/dL 0.1-1.0 Serum or plasma alkaline phosphatase measurement (enzymatic activity/volume) 54 U/L 40-136 Serum or plasma aspartate aminotransferase measurement (enzymatic activity/volume) 37 U/L 5-34 Serum or plasma alanine aminotransferase measurement (enzymatic activity/volume) 71 U/L 0-55 Serum or plasma protein measurement (mass/volume) 4.9 g/dL 6.4-8.2 Serum or plasma albumin measurement (mass/volume) 2.9 g/dL 3.2-4.5 CALCIUM CORRECTED 8.6 mg/dL 8.5-10.1 Complete blood count (CBC) with automated white blood cell (WBC) differential - 01/10/19 10:35 Blood leukocytes automated count (number/volume) 3.4 10*3/uL 4.3-11.0 Blood erythrocytes automated count (number/volume) 2.58 10*6/uL 4.35-5.85 Venous blood hemoglobin measurement (mass/volume) 8.0 g/dL 13.3-17.7 Blood hematocrit (volume fraction) 23 % 40-54 Automated erythrocyte mean corpuscular volume 90 [foz_us] 80-99 Automated erythrocyte mean corpuscular hemoglobin (mass per erythrocyte) 31 pg 25-34 Automated erythrocyte mean corpuscular hemoglobin concentration measurement (mass/volume) 34 g/dL 32-36 Automated erythrocyte distribution width ratio 16.8 % 10.0- 14.5 Automated blood platelet count (count/volume) 12 10*3/uL 130- 400 Automated blood platelet mean volume measurement 11.3 [foz_us] 7.4-10.4 Automated blood neutrophils/100 leukocytes 78 % 42-75 Automated blood lymphocytes/100 leukocytes 17 % 12-44 Blood monocytes/100 leukocytes 1 % 0-12 Automated blood eosinophils/100 leukocytes 2 % 0-10 Automated blood basophils/100 leukocytes 1 % 0-10 Blood neutrophils automated count (number/volume) 2.6 10*3 1.8-7.8 Blood lymphocytes automated count (number/volume) 0.6 10*3 1.0-4.0 Blood monocytes automated count (number/volume) 0.0 10*3 0.0- 1.0 Automated eosinophil count 0.1 10*3/uL 0.0-0.3 Automated blood basophil count (count/volume) 0.0 10*3/uL 0.0-0.1 Blood lactic acid measurement (moles/volume) - 01/10/19 10:35 Blood lactic acid measurement (moles/volume) 1.89 mmol/L 0.50- 2.00 Comprehensive metabolic panel - 01/10/19 10:35 Serum or plasma sodium measurement (moles/volume) 133 mmol/L 135-145 Serum or plasma potassium measurement (moles/volume) 3.2 mmol/L 3.6-5.0 Serum or plasma chloride measurement (moles/volume) 104 mmol/L 98-107 Carbon dioxide 21 mmol/L 21-32 Serum or plasma anion gap determination (moles/volume) 8 mmol/L 5-14 Serum or plasma urea nitrogen measurement (mass/volume) 16 mg/dL 7-18 Serum or plasma creatinine measurement (mass/volume) 0.95 mg/dL 0.60-1.30 Serum or plasma urea nitrogen/creatinine mass ratio 17 NRG Serum or plasma creatinine measurement with calculation of estimated glomerular filtration rate > NRG Serum or plasma glucose measurement (mass/volume) 112 mg/dL 70-105 Serum or plasma calcium measurement (mass/volume) 7.8 mg/dL 8.5-10.1 Serum or plasma total bilirubin measurement (mass/volume) 1.8 mg/dL 0.1-1.0 Serum or plasma alkaline phosphatase measurement (enzymatic activity/volume) 51 U/L 40-136 Serum or plasma aspartate aminotransferase measurement (enzymatic activity/volume) 39 U/L 5-34 Serum or plasma alanine aminotransferase measurement (enzymatic activity/volume) 74 U/L 0-55 Serum or plasma protein measurement (mass/volume) 5.2 g/dL 6.4-8.2 Serum or plasma albumin measurement (mass/volume) 3.0 g/dL 3.2-4.5 CALCIUM CORRECTED 8.6 mg/dL 8.5-10.1 Encounters ACCT No. Visit Date/Time Discharge Status Pt. Type Provider Facility Loc./Unit Complaint [id number] 01/08/2019 15:44:00 01/10/2019 14:29:00 DIS Inpatient LUZ SAMUEL, GRACE Soto 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 4TH SEVERE SEPSIS,SEVERE ANEMIA,MDS [id number] 12/31/2018 06:23:00 12/31/2018 10:45:00 DIS Outpatient CLARITZA MONTEIRO DO [facility] SDC POOR VENOUS ACCESS [id number] 12/30/2018 11:37:00 12/30/2018 14:23:00 DIS Outpatient CLARITZA MONTEIRO DO [facility] PREOP POOR VENOUS ACCESS [id number] 12/15/2018 09:39:00 12/15/2018 23:59:59 CLS Outpatient MAREN MUSE MD [facility] RT COPD [id number] 03/08/2015 19:58:00 03/09/2015 06:25:00 DIS Outpatient EMMANUEL STROUD APRN [facility] SLEEP SNORING [id number] 01/10/2019 16:03:00 ACT Outpatient MAREN MUSE MD [facility] ONC [id number] 01/10/2019 14:44:00 ACT Inpatient MARLEN STRANGE DO [facility] 4TH SWB,PNEUMONIA,WEAKNESS
[2019-01-11] MEDS: RT-ALBUTEROL/IPRATROPIUM 3 ML (DUONEB) VIAL INH SCH ×6 (02:17→22:39)
[2019-01-11] MEDS: PIPERACILLIN/TAZOBACTAM (BULK) 4.5 GM in NS (IVPB) 100 ML IV SCH ×3 (02:18→20:40)
[2019-01-11] MEDS: NS W/KCL 20 MEQ/L 1,000 ML IV SCH ×3 (02:18→21:08)
[2019-01-11 05:36] VITALS: BP 111/73
[2019-01-11] MEDS: ACYCLOVIR INJECTION 500 MG in NS (IVPB) 100 ML IV SCH ×3 (06:41→22:05)
[2019-01-11] MEDS: predniSONE 20 MG TAB PO SCH (06:41)
[2019-01-11 06:50] LABS: BASOPHILS % (AUTO) 1 % (0-10); EOSINOPHILS # (AUTO) 0.1 10^3/uL (0.0-0.3); EOSINOPHILS % (AUTO) 2 % (0-10); HEMATOCRIT 23 % (40-54); HEMOGLOBIN 7.7 G/DL (13.3-17.7); LYMPHOCYTES # (AUTO) 0.8 X 10^3 (1.0-4.0); LYMPHOCYTES % (AUTO) 23 % (12-44); MEAN CORPUSCULAR HEMOGLOBIN 31 PG (25-34); MEAN CORPUSCULAR HGB CONC 34 G/DL (32-36); MEAN CORPUSCULAR VOLUME 90 FL (80-99); MEAN PLATELET VOLUME 10.1 FL (7.4-10.4); MONOCYTES # (AUTO) 0.3 X 10^3 (0.0-1.0); MONOCYTES % (AUTO) 9 % (0-12); NEUTROPHILS # (AUTO) 2.2 X 10^3 (1.8-7.8); NEUTROPHILS % (AUTO) 66 % (42-75); RED CELL DISTRIBUTION WIDTH 17.1 % (10.0-14.5); WHITE BLOOD COUNT 3.4 10^3/uL (4.3-11.0)
[2019-01-11 06:53] LABS: PLATELET COUNT 9 10^3/uL (130-400)
[2019-01-11 07:04] LABS: ALANINE AMINOTRANSFERASE 59 U/L (0-55); ALBUMIN 2.8 GM/DL (3.2-4.5); ALKALINE PHOSPHATASE 46 U/L (40-136); BILIRUBIN,TOTAL 1.9 MG/DL (0.1-1.0); BUN/CREATININE RATIO 18; CALCIUM 7.9 MG/DL (8.5-10.1); CARBON DIOXIDE 20 MMOL/L (21-32); CHLORIDE 109 MMOL/L (98-107); CREATININE SERUM 1.07 MG/DL (0.60-1.30); GFR ESTIMATED > 60; GLUCOSE 96 MG/DL (70-105); SODIUM 136 MMOL/L (135-145)
--- NOTE | 2019-01-11 07:06 | NUR ---
THIS RN CALLED DR. MUSE IN REGARDS TO THE PATIENT'S PLATELETS BEING 9. ORDERS RECEIVED FOR 1 UNIT OF PLATELETS IV, 500 MG TYLENOL PO ONCE BEFORE THE UNIT OF PLATELETS, AND 20 MG LASIX IV ONCE BEFORE THE UNIT OF PLATELETS. ORDERS READ BACK AND VERIFIED.
[2019-01-11] MEDS ORDERED: ACETAMINOPHEN 500 MG TAB (TYLENOL) PO ONE (07:15)
[2019-01-11] MEDS ORDERED: FUROSEMIDE 40 MG/4 ML INJ (LASIX) IVP ONE (07:15)
[2019-01-11] MEDS: fluCOnazole (DIFLUCAN) 100 MG TAB PO SCH (10:38)
[2019-01-11] MEDS ORDERED: SALINE NASAL SPRAY (OCEAN) 45 ML BTL PRN (10:45)
[2019-01-11] MEDS: LACTOBACILLUS ACIDOPHILUS (PROBIOTIC) CAPSULE PO SCH ×2 (11:09→18:11)
--- NOTE | 2019-01-11 14:29 | Progress Note-Hospitalist ---
Progress Note Progress Notes/Assess & Plan Date Seen 01/11/19 Time Seen by Provider: 14:25 Assessment & Plan The patient received his first dose of chemotherapy yesterday. He reports that he became relatively immediately nauseated and did vomit. Today it is planned that he will have a premedication with anti-nausea and. He has no other complaints and has been able to eat. Physical exam: He appears a bit short of breath at rest. His color is better than yesterday. Lungs are clear to auscultation with some tachypnea at rest. CV is regular. Impression: Day number 2 chemotherapy for Myelodysplasia GRACE ESCOBAR MD Jan 11, 2019 14:29
[2019-01-11 15:12] VITALS: BP 111/73
[2019-01-11] MEDS: ONDANSETRON 4 MG/2 ML (SDV) Z0FRAN IV PRN (15:13)
[2019-01-11] MEDS ORDERED: NS IV 500 ML 500 ML ONE (16:02)
[2019-01-11 16:26] VITALS: BP 131/75
[2019-01-11] MEDS ORDERED: FUROSEMIDE 40 MG/4 ML INJ (LASIX) ONE (16:27)
[2019-01-11] MEDS ORDERED: ACETAMINOPHEN 500 MG TAB (TYLENOL) ONE (16:28)
[2019-01-11 16:55] VITALS: BP 120/68
[2019-01-11 18:00] VITALS: BP 131/75
[2019-01-11 19:45] VITALS: BP 131/76
[2019-01-11] MEDS: TEMAZEPAM 15 MG (RESTORIL) CAP PO PRN (20:40)
[2019-01-12] VITALS (9 sets, daily range): BP systolic 110–202; BP diastolic 61–127
--- NOTE | 2019-01-12 | NUR ---
PT CALLED THIS RN TO ROOM. PT IS UPSET THAT HE IS TANGLED IN HIS CPAP LINE AND IS ATTEMPTING TO URINATE. PT IS SOB AND IN DISTRESS. THIS RN HELPED PT US URINAL AND REMOVED CPAP AND PUT ON NC 4 LITERS. THIS RN ATTEMPTS TO CALM DOWN PT. PT CONTINUES TO BE SOB AND IS SHAKING. PT TEMP IS 101.0, RESPIRATION 35, B/P 202/127, O2 SAT 89 ON 4 LITER NC. RT CALLED AT THIS TIME.
[2019-01-12] MEDS: morphine INJ 4 MG/ML 1 ML (VIAL/SYRINGE) IV PRN ×2 (00:18→02:35)
--- NOTE | 2019-01-12 00:18 | NUR ---
TIME LINE: 0018-RT IN ROOM. PT PLACED ON VAPO THERM. 2MG OF MORPHINE GIVEN BY THIS RN. VITAL SIGNS B/P 157/92, TEMP 100.8, HR 168, RESP 32, O2 SAT IS 100% ON VAPOTHERM. 0030- TYLENOL GIVEN FOR TEMP. 100.8. DR. MUSE CALLED AND INFORMED OF PT STATUS. ORDER TO GIVE 1MG OF ATIVAN AND TRANSFER TO ICU IF HEART RATE DOES NOT DECREASE. DR. MUSE REQUESTED DR. ESCOBAR BE CALLED IF PT IS TRANSFER TO ICU AND FOR FURTHER ORDERS. 0051- 1MG OF ATIVAN GIVEN. RT PLACED PT ON BIPAP AT THIS TIME. 0110- PT B/P 110/73, PULSE 133, RESP. 32 TEMP 100.4. O2SAT 100% ON BIPAP. PT STATES HE IS FEELING LITTLE BETTER. 0144- HR 125, TEMP 100.4, O2 SAT 100 ON BIPAP, RESP 30.
[2019-01-12] MEDS: ACETAMINOPHEN 325 MG TABLET PO PRN (00:30)
[2019-01-12] MEDS ORDERED: LORazepam INJ 2 MG/ML (ATIVAN) VIAL IVP ONE (00:45)
[2019-01-12] MEDS: RT-ALBUTEROL/IPRATROPIUM 3 ML (DUONEB) VIAL INH SCH ×7 (01:54→21:56)
--- NOTE | 2019-01-12 02:00 | NUR ---
PT HR 122, RESP 30. PT HR HAS IMPROVED. PT STATES HE IS FEELING MUCH BETTER. PT DOESN'T APPEAR TO BE IN DISTRESS. DR. ESCOBAR CALLED AT THIS TIME TO UPDATE HIM AND INFORM OF PT STATUS. DID NOT ANSWER PHONE. WEIGH BOSS CALLED AT THIS TIME AND UPDATED ON PT STATUS AND REQUEST OF DR. MUSE AND UNABLE TO CONTACT DR. ESCOBAR. PT WILL CONTINUED TO BE MONITORED CLOSELY ON THIS FLOOR.
--- NOTE | 2019-01-12 02:34 | NUR ---
TEMP 98.0. RESP 25. HEART RATE 117. NO DISTRESS NOTED.
[2019-01-12] MEDS: ACYCLOVIR INJECTION 500 MG in NS (IVPB) 100 ML IV SCH ×4 (05:24→22:36)
[2019-01-12] MEDS: NS W/KCL 20 MEQ/L 1,000 ML IV SCH ×2 (06:08→14:59)
[2019-01-12] MEDS: LACTOBACILLUS ACIDOPHILUS (PROBIOTIC) CAPSULE PO SCH ×3 (06:23→17:10)
[2019-01-12] MEDS: PIPERACILLIN/TAZOBACTAM (BULK) 4.5 GM in NS (IVPB) 100 ML IV SCH ×3 (06:23→18:33)
[2019-01-12] MEDS: predniSONE 20 MG TAB PO SCH (06:23)
[2019-01-12 06:56] LABS: BASOPHILS % (AUTO) 1 % (0-10); EOSINOPHILS # (AUTO) 0.1 10^3/uL (0.0-0.3); EOSINOPHILS % (AUTO) 5 % (0-10); LYMPHOCYTES # (AUTO) 0.6 X 10^3 (1.0-4.0); LYMPHOCYTES % (AUTO) 21 % (12-44); MEAN CORPUSCULAR HEMOGLOBIN 31 PG (25-34); MEAN CORPUSCULAR HGB CONC 33 G/DL (32-36); MEAN CORPUSCULAR VOLUME 92 FL (80-99); MEAN PLATELET VOLUME 11.3 FL (7.4-10.4); MONOCYTES # (AUTO) 0.2 X 10^3 (0.0-1.0); MONOCYTES % (AUTO) 8 % (0-12); NEUTROPHILS # (AUTO) 1.8 X 10^3 (1.8-7.8); NEUTROPHILS % (AUTO) 66 % (42-75); RED CELL DISTRIBUTION WIDTH 16.8 % (10.0-14.5); WHITE BLOOD COUNT 2.7 10^3/uL (4.3-11.0)
[2019-01-12 07:02] LABS: HEMATOCRIT 20 % (40-54); HEMOGLOBIN 6.6 G/DL (13.3-17.7); PLATELET COUNT 16 10^3/uL (130-400)
[2019-01-12 07:13] LABS: ALANINE AMINOTRANSFERASE 45 U/L (0-55); ALBUMIN 2.7 GM/DL (3.2-4.5); ALKALINE PHOSPHATASE 49 U/L (40-136); BILIRUBIN,TOTAL 1.2 MG/DL (0.1-1.0); BUN/CREATININE RATIO 16; CALCIUM 8.1 MG/DL (8.5-10.1); CARBON DIOXIDE 21 MMOL/L (21-32); CHLORIDE 108 MMOL/L (98-107); CREATININE SERUM 1.11 MG/DL (0.60-1.30); GFR ESTIMATED > 60; GLUCOSE 104 MG/DL (70-105); POTASSIUM 3.9 MMOL/L (3.6-5.0); SODIUM 137 MMOL/L (135-145); TOTAL PROTEIN 5.2 GM/DL (6.4-8.2)
[2019-01-12] MEDS ORDERED: FUROSEMIDE 40 MG/4 ML INJ (LASIX) IVP NR (07:15)
[2019-01-12] MEDS ORDERED: ACETAMINOPHEN 500 MG TAB (TYLENOL) PO NR (07:15)
--- NOTE | 2019-01-12 08:46 | Pulmonary Progress Note ---
Subjective Time Seen by a Provider: 10:32 Subjective/Events-last exam Pt appears very weak and SOB. Sepsis Event Evaluation Height, Weight, BMI Height: 6'0.00" Weight: 213lbs. 5.0oz. 96.745214jd; 28.9 BMI Method:Stated Exam Exam Vital Signs Date Time Temp Pulse Resp B/P (MAP) Pulse Ox O2 Delivery O2 Flow Rate FiO2 01/12/19 08:19 97.0 92 26 111/61 (78) 100 Vapotherm 50.00 40.00 01/12/19 07:29 99 Vapotherm 40.00 50 01/12/19 05:25 98.0 105 24 120/75 (90) 100 NIV Bilevel 100.00 100.00 01/12/19 03:55 110 20 100 70.00 01/12/19 02:48 120 25 100 100.00 01/12/19 02:34 98.0 117 25 100 NIV Bilevel 01/12/19 02:00 98.0 122 30 100 NIV Bilevel 01/12/19 02:00 118 30 100 100.00 01/12/19 01:44 100.4 125 30 100 NIV Bilevel 01/12/19 01:10 100.4 133 37 110/73 (85) 100 Vapotherm 01/12/19 01:10 100.8 01/12/19 01:10 133 30 100 100.00 01/12/19 00:30 100.4 01/12/19 00:18 100.8 168 32 157/92 (113) 100 Vapotherm 01/12/19 00:00 101.0 160 35 202/127 (152) 89 Nasal Cannula 4.00 4.00 01/11/19 22:39 96 NIV CPAP 4.00 01/11/19 21:00 Nasal Cannula 5.00 01/11/19 19:45 96.7 91 20 131/76 96 Nasal Cannula 4.00 01/11/19 18:02 97 Nasal Cannula 4.00 01/11/19 18:00 96.1 84 20 131/75 (93) 93 Nasal Cannula 4.00 01/11/19 16:55 97.8 78 20 120/68 97 Nasal Cannula 5.00 01/11/19 16:26 96.1 84 20 131/75 93 Nasal Cannula 5.00 01/11/19 15:12 110 93 36 01/11/19 15:07 93 Nasal Cannula 4.00 01/11/19 11:19 93 Nasal Cannula 4.00 01/11/19 09:00 Nasal Cannula 5.00 I & O 01/12/19 07:00 Intake Total 1480 ml Output Total 2375 ml Balance -895 ml Height & Weight Height: 6'0.00" Weight: 213lbs. 5.0oz. 96.919876la; 28.9 BMI Method:Stated General Appearance: Anxious, Mild Distress HEENT: PERRL/EOMI, Normal ENT Inspection, Pharynx Normal Neck: Full Range of Motion, Non Tender, Supple Respiratory: Accessory Muscle Use, Crackles, Decreased Breath Sounds Cardiovascular: No JVD, No Murmur, Tachycardia Gastrointestinal: non tender, soft Extremity: Normal Capillary Refill, Normal Inspection, Pedal Edema Neurologic/Psychiatric: Alert, Oriented x3 Skin: Normal Color, Warm/Dry Lymphatic: No Adenopathy Results Lab Laboratory Tests 01/11/19 06:37 01/12/19 06:30 Assessment/Plan Assessment/Plan SOB with pulmonary edema -Park cultures - Zosyn Persistent blood streaked sputum - probably secondary to thrombocytopenia Hypokalemia -Replace Severe Anemia -S/p transfusions -Monitor -Oncology managing Pancytopenia -monitor LOREN CHRISTIAN DO Jan 12, 2019 08:46
[2019-01-12] MEDS: fluCOnazole (DIFLUCAN) 100 MG TAB PO SCH (09:04)
[2019-01-12] MEDS ORDERED: NS IV 500 ML 500 ML ONE (10:04)
--- NOTE | 2019-01-12 11:42 | NUR ---
PALLIATIVE CARE RN in to see patient after hearing that he has had a change in condition. He has started chemotherapy and is currently needing a BIPAP to assist in his breathing. Blood product is infusing as well. I introduce self to his who is currently at the bedside. I reminded the patient that this mary he is on is a hard one and that I am available for discussion about other POC options if requested.
--- NOTE | 2019-01-12 11:50 | Diagnostic Imaging Report ---
Indication: Shortness of air. Comparison: 01/09/2019 Findings: Single frontal radiographic view of the chest was obtained and demonstrates persistent diffuse infiltrates throughout the right lung, greatest within the right upper lobe. There are new patchy opacities within the left perihilar region as well. Small right-sided effusion is also noted. There is no large effusion on the left. No pneumothorax is seen on either side. Cardiac silhouette and pulmonary vasculature are within normal limits. Right internal jugular Port-A-Cath is noted with tip in the high SVC. Bony structures show no gross acute abnormalities. Impression: 1. Findings concerning for developing infiltrate within the left perihilar region. 2. Stable diffuse infiltrate on the right, greatest within the right upper lobe. 3. Small right-sided pleural effusion. Dictated by: Dictated on workstation # [id number]
--- NOTE | 2019-01-12 13:25 | Progress Note-Hospitalist ---
Progress Note Progress Notes/Assess & Plan Date Seen 01/12/19 Time Seen by Provider: 13:20 Assessment & Plan The patient seems to be declining rather rapidly. His hemoglobin fell from 7.7 yesterday to 6.6 today. Platelet count is 16,000. Chest x-ray from today shows a more developed process in the right mid lung field and a rather symmetrical but less developed process in the left mid lung. He is requiring Vapotherm with 50 percent FiO2 and a flow rate of 40. Physical exam his color is pink however he is tachypneic at rest. Breath sounds are poorly heard. CV shows a relative tachycardia in the low 100s. Ecchymoses seemed to be about the same as before. Impression: Myelodysplastic syndrome. 2.pulmonary process with concern for pneumonia. 3.general decline in his already tenuous condition. Plan: Repeat start vancomycin and observe. Discussion was held with his relative to his tenuous and declining condition. GRACE ESCOBAR MD Jan 12, 2019 13:25
[2019-01-12] MEDS ORDERED: VANCOMYCIN INJECTION 2,000 MG in NS IV 500 ML 500 ML IV NR (13:44)
[2019-01-12] MEDS ORDERED: methylPREDNISolone 125 MG (Solu-MEDROL) VIAL IV NR (14:20)
[2019-01-12] MEDS ORDERED: ANIDULAFUNGIN INJECTION 200 MG in NS (IVPB) 250 ML IV NR (15:42)
--- NOTE | 2019-01-12 16:12 | Oncology Progress Note ---
Subjective Date Seen by a Provider: Jan 12, 2019 Time Seen by a Provider: 16:07 Subjective/Events-last exam Pt continues to spike fever and hypoxia required bi-PAP and then high flow O2. CT angio and CXR showed interstitial infiltrates more on the RUL. Induced sputum from 01-08-2019 grow large amount of Aspergillus niger. Hb 6.6 today Plt 16k Data Review Labs Laboratory Tests 01/12/19 06:30 Laboratory Tests 01/11/19 06:37: White Blood Count 3.4L, Red Blood Count 2.49L, Hemoglobin 7.7L, Hematocrit 23L, Red Cell Distribution Width 17.1H, Platelet Count 9*L, Lymphocytes # (Auto) 0.8L , Chloride Level 109H, Carbon Dioxide Level 20L, Blood Urea Nitrogen 19H, Calcium Level 7.9L, Total Bilirubin 1.9H, Alanine Aminotransferase (ALT/SGPT) 59H, Total Protein 5.0L, Albumin 2.8L 01/12/19 06:30: White Blood Count 2.7L, Red Blood Count 2.15L, Hemoglobin 6.6*L, Hematocrit 20*L , Red Cell Distribution Width 16.8H, Platelet Count 16*L, Lymphocytes # (Auto) 0.6L, Chloride Level 108H, Calcium Level 8.1L, Total Bilirubin 1.2H, Total Protein 5.2L, Albumin 2.7L, Mean Platelet Volume 11.3H 01/12/19 13:18: Physical Exam Vital Signs Vital Signs - First Documented 01/10/19 01/10/19 01/11/19 18:30 19:29 15:12 Temp 99.9 Pulse 78 Resp 20 B/P (MAP) 177/79 (111) Pulse Ox 94 O2 Delivery Room Air O2 Flow Rate 4.00 FiO2 36 Capillary Refill : Height, Weight, BMI Height: 6'0.00" Weight: 213lbs. 5.0oz. 96.640386hc; 28.9 BMI Method:Stated General Appearance: No Apparent Distress, Moderate Distress HEENT: PERRL/EOMI Neck: Non Tender, Supple Respiratory: Respiratory Distress Cardiovascular: Regular Rate, Rhythm, Tachycardia Gastrointestinal: Non Tender, Soft, Distended Extremity: Non Tender, No Calf Tenderness, No Pedal Edema Neurologic/Psychiatric: Alert, Oriented x3 Impression & Plan Impression & Plan 1. Fever, Aspergillus pneumonia and neutropenia. Sputum grow large amount of Aspergillus niger. Start him Anidualfungin IV treatment today. Will stop Vancomycine tomorrow. If Pt improves, will then stop Zosyn. Stop chemotherapy Vidaza. Taper steroid to 20mg x 2, then 10mg x2 and then off. 2. MDS, pancytopenia, 7% blasts in the bone marrow, NOT in AML 11/29/18 bone marrow exam at [facility]. Thrombocytopenia did not respond to steroid treatment. 3. Mod-severe aortic stenosis, ? candidate for surgical repair/correction. Pt had cardiac and thoracic surgery evaluation 12/28/18. He will have more tests including JANETT on 01/19/19 to decide if he does have a critical stenosis and would be benefit from the surgical repair. Because of this, he has been chronic fatigue and was on wheel chair/walker since 10/2018. 4. h/o RLL non-small cell lung cancer, s/p surgical resection and chemotherapy cisplatin and gemcitabine 2012. Most recent CT scan of chest and abdomen 11/26/2018 showed NO recurrence of disease. 5. Tachycardia from the infection and hypoxia. 6. 80 pack year of smoking, stopped 2012 when he as diagnosed with lung cancer 7. h/o CAD but recent cardiac cath 10/2018 did not show any blockage or active lesion. 8. Prognosis poor. 9. Probiotics while on antibiotics. Clinical Quality Measures DVT/VTE Risk/Contraindication: Risk Factor Score Per Nursin MAREN MUSE MD Jan 12, 2019 16:12
--- NOTE | 2019-01-12 16:18 | NUR ---
PATIENT HAS ASPERGILLOSIS NIGER, PER DISCUSSION WITH DR MUSE WILL START ERAXIS 200MG IV TODAY AND PHARMACY WILL ORDER IN VORICONAZOLE 600MG (6MG/KG) IV X Q12H X 2 DOSES, THEN VORICONAZOLE 200MG PO BID. PHARMACY HAS TO ORDER IN AND WILL BE AVAILABLE 01/13/19 @ 0900.
[2019-01-12] MEDS: PANTOPRAZOLE 20 MG TABLET (PROTONIX) PO SCH (21:13)
[2019-01-13] MEDS: NS W/KCL 20 MEQ/L 1,000 ML IV SCH ×3 (01:46→21:10)
[2019-01-13] MEDS: VANCOMYCIN 1250 MG/NS 250 ML IVPB IV SCH ×6 (01:50→20:52)
[2019-01-13] MEDS: PIPERACILLIN/TAZOBACTAM (BULK) 4.5 GM in NS (IVPB) 100 ML IV SCH ×3 (01:50→20:52)
[2019-01-13] MEDS: ACETAMINOPHEN 325 MG TABLET PO PRN (02:01)
[2019-01-13] MEDS: RT-ALBUTEROL/IPRATROPIUM 3 ML (DUONEB) VIAL INH SCH ×6 (02:30→21:59)
[2019-01-13 06:07] VITALS: BP 159/90
[2019-01-13] MEDS: LACTOBACILLUS ACIDOPHILUS (PROBIOTIC) CAPSULE PO SCH ×3 (06:08→18:05)
[2019-01-13] MEDS: ACYCLOVIR INJECTION 500 MG in NS (IVPB) 100 ML IV SCH ×3 (06:08→22:22)
[2019-01-13] MEDS: predniSONE 20 MG TAB PO SCH (06:08)
[2019-01-13 06:34] LABS: BASOPHILS % (AUTO) 1 % (0-10); EOSINOPHILS # (AUTO) 0.2 10^3/uL (0.0-0.3); EOSINOPHILS % (AUTO) 4 % (0-10); HEMATOCRIT 25 % (40-54); HEMOGLOBIN 8.3 G/DL (13.3-17.7); LYMPHOCYTES # (AUTO) 0.6 X 10^3 (1.0-4.0); LYMPHOCYTES % (AUTO) 17 % (12-44); MEAN CORPUSCULAR HEMOGLOBIN 30 PG (25-34); MEAN CORPUSCULAR HGB CONC 34 G/DL (32-36); MEAN CORPUSCULAR VOLUME 89 FL (80-99); MONOCYTES # (AUTO) 0.2 X 10^3 (0.0-1.0); MONOCYTES % (AUTO) 6 % (0-12); NEUTROPHILS # (AUTO) 2.7 X 10^3 (1.8-7.8); NEUTROPHILS % (AUTO) 73 % (42-75); RED CELL DISTRIBUTION WIDTH 17.3 % (10.0-14.5); WHITE BLOOD COUNT 3.7 10^3/uL (4.3-11.0)
[2019-01-13 06:39] LABS: PLATELET COUNT 11 10^3/uL (130-400)
[2019-01-13] MEDS ORDERED: predniSONE 10 MG TAB PO SCH (07:00)
[2019-01-13] MEDS ORDERED: predniSONE 20 MG TAB PO SCH (07:00)
[2019-01-13 07:06] LABS: BILIRUBIN,TOTAL 1.4 MG/DL (0.1-1.0); CALCIUM 8.5 MG/DL (8.5-10.1); CREATININE SERUM 1.21 MG/DL (0.60-1.30); POTASSIUM 3.7 MMOL/L (3.6-5.0); TOTAL PROTEIN 6.1 GM/DL (6.4-8.2)
--- NOTE | 2019-01-13 07:10 | NUR ---
0639-CRITICAL RESULT RECEIVED FROM LAB. PLATELETS709-SPOKE WITH DR. MUSE AND INFORMED HER OF CRITICAL LAB AND SHE STATES "LETS JUST MONITOR HIM FOR NOW" AND TELEPHONE ORDERS RECEIVED FOR CBC AT 1500 TODAY.
[2019-01-13] MEDS ORDERED: VORICONAZOLE 200 MG TAB (VFEND) NON-FORMULARY PO SCH (09:00)
[2019-01-13] MEDS ORDERED: ANIDULAFUNGIN INJECTION 100 MG in NS (IVPB) 100 ML IV SCH (09:00)
[2019-01-13] MEDS ORDERED: METHYLPREDNISOLONE SOD SUCC IV ONE (09:00)
[2019-01-13] MEDS ORDERED: NS IV ONE (09:00)
[2019-01-13] MEDS: PANTOPRAZOLE 20 MG TABLET (PROTONIX) PO SCH ×2 (10:08→10:09)
[2019-01-13] MEDS ORDERED: PATIENT MAY USE OWN MED,SINGLE MED PO SCH (10:15)
[2019-01-13] MEDS: SODIUM CHLORIDE IV SCH ×4 (10:23→22:22)
[2019-01-13] MEDS: VORICONAZOLE IV SCH ×4 (10:23→22:22)
--- NOTE | 2019-01-13 11:06 | Oncology Progress Note ---
Subjective Date Seen by a Provider: Jan 13, 2019 Time Seen by a Provider: 11:38 Subjective/Events-last exam Large amount Aspergillus grow in his sputum culture, reported yesterday. This would explains his fever, interstitial pneumonia, poor response to the antibiotics treatment. We initiated treatment yesterday and stopped chemo, taper off steroid. Plt 11 today but no active bleeding. Will close monitor for now. Pt is now comfortably sleeping. Data Review Labs Laboratory Tests 01/13/19 06:26 Laboratory Tests 01/11/19 06:37: White Blood Count 3.4L, Red Blood Count 2.49L, Hemoglobin 7.7L, Hematocrit 23L, Red Cell Distribution Width 17.1H, Platelet Count 9*L, Lymphocytes # (Auto) 0.8L , Chloride Level 109H, Carbon Dioxide Level 20L, Blood Urea Nitrogen 19H, Calcium Level 7.9L, Total Bilirubin 1.9H, Alanine Aminotransferase (ALT/SGPT) 59H, Total Protein 5.0L, Albumin 2.8L 01/12/19 06:30: White Blood Count 2.7L, Red Blood Count 2.15L, Hemoglobin 6.6*L, Hematocrit 20*L , Red Cell Distribution Width 16.8H, Platelet Count 16*L, Lymphocytes # (Auto) 0.6L, Chloride Level 108H, Calcium Level 8.1L, Total Bilirubin 1.2H, Total Protein 5.2L, Albumin 2.7L, Mean Platelet Volume 11.3H 01/12/19 13:18: 01/13/19 06:26: White Blood Count 3.7L, Red Blood Count 2.76L, Hemoglobin 8.3#L, Hematocrit 25L, Red Cell Distribution Width 17.3H, Platelet Count 11*L, Lymphocytes # (Auto) 0.6L, Carbon Dioxide Level 17L, Blood Urea Nitrogen 19H, Total Bilirubin 1.4H, Total Protein 6.1L, Albumin 3.0L, Sodium Level 130L Physical Exam Vital Signs Vital Signs - First Documented 01/10/19 01/10/19 01/11/19 18:30 19:29 15:12 Temp 99.9 Pulse 78 Resp 20 B/P (MAP) 177/79 (111) Pulse Ox 94 O2 Delivery Room Air O2 Flow Rate 4.00 FiO2 36 Capillary Refill : Height, Weight, BMI Height: 6'0.00" Weight: 213lbs. 5.0oz. 96.963119tq; 28.9 BMI Method:Stated General Appearance: No Apparent Distress HEENT: PERRL/EOMI Respiratory: No Accessory Muscle Use, No Respiratory Distress, Crackles Cardiovascular: Regular Rate, Rhythm, No Edema Gastrointestinal: Non Tender, Soft Neurologic/Psychiatric: Alert, Oriented x3 Impression & Plan Impression & Plan 1. Fever, Aspergillus pneumonia and neutropenia. Sputum grew large amount of Aspergillus niger. Start him Anidualfungin IV treatment yesterday. Still spike fever last night. Will keep Vancomycine for now. If no more fever for 72 hrs, then stop Vanco and then stop Zosyn. Stop chemotherapy Vidaza. Taper steroid to 20mg x 2, then 10mg x2 and then off. He is requiring less O2 today. 2. MDS, pancytopenia, 7% blasts in the bone marrow, NOT in AML 11/29/18 bone marrow exam at [facility]. Thrombocytopenia did not respond to steroid treatment. Will evaluate this issue after we get the Aspergillus pneumonia under control. Plt 11k but active bleeding. Poor response to Plt transfusion in the past. Will close monitor for now. Repeat CBC in the after. If Plt less than 10, then trans fusion one unit of Plt. 3. Mod-severe aortic stenosis, ? candidate for surgical repair/correction. Pt had cardiac and thoracic surgery evaluation 12/28/18. He will have more tests including JANETT on 01/19/19 to decide if he does have a critical stenosis and would be benefit from the surgical repair. Because of this, he has been chronic fatigue and was on wheel chair/walker since 10/2018. 4. h/o RLL non-small cell lung cancer, s/p surgical resection and chemotherapy cisplatin and gemcitabine 2012. Most recent CT scan of chest and abdomen 11/26/2018 showed NO recurrence of disease. 5. Tachycardia from the infection and hypoxia. Better. 6. 80 pack year of smoking, stopped 2012 when he as diagnosed with lung cancer 7. h/o CAD but recent cardiac cath 10/2018 did not show any blockage or active lesion. 8. Prognosis poor. 9. Probiotics while on antibiotics. 10. Anticipate to stay in the hospital for 7-10 days. Clinical Quality Measures DVT/VTE Risk/Contraindication: Risk Factor Score Per Nursin MAREN MUSE MD Jan 13, 2019 11:05
--- NOTE | 2019-01-13 12:15 | Progress Note-Hospitalist ---
Progress Note Progress Notes/Assess & Plan Date Seen 01/13/19 Time Seen by Provider: 12:10 Assessment & Plan Today is the patient's 39 anniversary. He appears slightly more vigorous and alert than he did yesterday. He has been running a fever and had a MAXIMUM TEMPERATURE of 102.7 at 02 100 this morning. He has grown Aspergillus Niger from the sputum. He is receiving coverage with broad-spectrum antibiotic, viral coverage and added fungal coverage. Physical exam: He is reasonably pain. He is tachypneic. Lungs show distant breath sounds. CV shows a tachycardia with a rate in the range of 110. Impression: Myelodysplastic syndrome. 2.immunodeficiency. 3.pneumonia and apparent aspergillosis infection. Plan: Continue medications. His status is desperate. GRACE ESCOBAR MD Jan 13, 2019 12:15
[2019-01-13] MEDS ORDERED: TROUGH ORDER-PHARMACY XX NR (13:00)
--- NOTE | 2019-01-13 13:35 | NUR ---
PALLIATIVE CARE RN in to see patient and . He is looking improved over yesterday with d/c of BiPAP to Vapotherm. We talked of his previously scheduled JANETT for next week and the likelihood that he will not be able to make that appt at . will be calling and cancel the appointment. Discussion about his medical issues and having to pick the most important condition to address at this time. We also discussed that he and he alone can know if he wants to continue the fight or if the struggle has become too painful and difficult. He currently is hopeful that his infection will resolve with ABX and that he can continue with the Chemo. Patient is looking forward to his PET visit sometime in the near future.
[2019-01-13 14:06] LABS: BASOPHILS % (AUTO) 1 % (0-10); EOSINOPHILS # (AUTO) 0.1 10^3/uL (0.0-0.3); EOSINOPHILS % (AUTO) 4 % (0-10); HEMATOCRIT 22 % (40-54); HEMOGLOBIN 7.4 G/DL (13.3-17.7); LYMPHOCYTES # (AUTO) 0.5 X 10^3 (1.0-4.0); LYMPHOCYTES % (AUTO) 15 % (12-44); MEAN CORPUSCULAR HEMOGLOBIN 30 PG (25-34); MEAN CORPUSCULAR HGB CONC 34 G/DL (32-36); MEAN CORPUSCULAR VOLUME 89 FL (80-99); MONOCYTES # (AUTO) 0.4 X 10^3 (0.0-1.0); MONOCYTES % (AUTO) 13 % (0-12); NEUTROPHILS # (AUTO) 2.1 X 10^3 (1.8-7.8); NEUTROPHILS % (AUTO) 68 % (42-75); RED CELL DISTRIBUTION WIDTH 17.2 % (10.0-14.5); WHITE BLOOD COUNT 3.2 10^3/uL (4.3-11.0)
[2019-01-13 14:09] LABS: PLATELET COUNT 8 10^3/uL (130-400)
--- NOTE | 2019-01-13 14:10 | NUR ---
Chaplain tijerina active engaged in rapport building until RN and [employer] arrived to transfer pt from his chair to the hospital bed. Addendum: 01/14/19 at 1244 by KEMAR ANDERSON PAST Pt is listed as Hindu but is actually Yazidi.
[2019-01-13] MEDS ORDERED: NS IV 500 ML 500 ML ONE (15:33)
[2019-01-13 15:55] VITALS: BP 102/64
[2019-01-13 16:31] VITALS: BP 102/64
[2019-01-13 16:55] VITALS: BP 118/72
[2019-01-13] MEDS: OMEPRAZOLE 20 MG (PriLOSEC) CAP NON-FORMULARY PO SCH (16:56)
[2019-01-13 17:58] VITALS: BP 123/81
[2019-01-13 19:07] VITALS: BP 126/78
[2019-01-13] MEDS: TEMAZEPAM 15 MG (RESTORIL) CAP PO PRN (21:10)
[2019-01-14] VITALS (7 sets, daily range): BP systolic 111–135; BP diastolic 68–78
[2019-01-14] MEDS: RT-ALBUTEROL/IPRATROPIUM 3 ML (DUONEB) VIAL INH SCH ×6 (01:26→22:03)
[2019-01-14] MEDS: PIPERACILLIN/TAZOBACTAM (BULK) 4.5 GM in NS (IVPB) 100 ML IV SCH ×3 (03:15→18:08)
[2019-01-14] MEDS: LACTOBACILLUS ACIDOPHILUS (PROBIOTIC) CAPSULE PO SCH ×3 (06:20→18:05)
[2019-01-14] MEDS: predniSONE 20 MG TAB PO SCH (06:21)
[2019-01-14] MEDS: ACYCLOVIR INJECTION 500 MG in NS (IVPB) 100 ML IV SCH (06:22)
[2019-01-14] MEDS: OMEPRAZOLE 20 MG (PriLOSEC) CAP NON-FORMULARY PO SCH ×2 (06:23→18:05)
[2019-01-14 06:47] LABS: BASOPHILS % (AUTO) 1 % (0-10); EOSINOPHILS # (AUTO) 0.1 10^3/uL (0.0-0.3); EOSINOPHILS % (AUTO) 4 % (0-10); HEMATOCRIT 24 % (40-54); HEMOGLOBIN 8.1 G/DL (13.3-17.7); LYMPHOCYTES # (AUTO) 0.7 X 10^3 (1.0-4.0); LYMPHOCYTES % (AUTO) 26 % (12-44); MEAN CORPUSCULAR HEMOGLOBIN 30 PG (25-34); MEAN CORPUSCULAR HGB CONC 34 G/DL (32-36); MEAN CORPUSCULAR VOLUME 89 FL (80-99); MEAN PLATELET VOLUME 11.1 FL (7.4-10.4); MONOCYTES # (AUTO) 0.2 X 10^3 (0.0-1.0); MONOCYTES % (AUTO) 7 % (0-12); NEUTROPHILS # (AUTO) 1.7 X 10^3 (1.8-7.8); NEUTROPHILS % (AUTO) 62 % (42-75); RED CELL DISTRIBUTION WIDTH 16.7 % (10.0-14.5); WHITE BLOOD COUNT 2.7 10^3/uL (4.3-11.0)
[2019-01-14 06:48] LABS: PLATELET COUNT 23 10^3/uL (130-400)
--- NOTE | 2019-01-14 07:02 | NUR ---
0648-CRITICAL RESULT CALLED FROM LAB. PLATELETS-699-SPOKE WITH DR. MUSE AND INFORMED HER OF CRITICAL RESULT AND ALSO INFORMED HER THAT PT DID HAVE 1X BRIGHT RED BLOODY SPUTUM THIS AM. TELEPHONE ORDERS RECEIVED FOR 1 UNIT PLATELETS AND TO ORDER CBC AFTER PLATELETS COMPLETE.
[2019-01-14 07:05] LABS: ALANINE AMINOTRANSFERASE 34 U/L (0-55); ALBUMIN 2.9 GM/DL (3.2-4.5); ALKALINE PHOSPHATASE 54 U/L (40-136); BILIRUBIN,TOTAL 1.2 MG/DL (0.1-1.0); BUN/CREATININE RATIO 17; CALCIUM 8.4 MG/DL (8.5-10.1); CARBON DIOXIDE 19 MMOL/L (21-32); CHLORIDE 105 MMOL/L (98-107); CREATININE SERUM 1.07 MG/DL (0.60-1.30); GFR ESTIMATED > 60; GLUCOSE 80 MG/DL (70-105); POTASSIUM 3.7 MMOL/L (3.6-5.0); SODIUM 134 MMOL/L (135-145); TOTAL PROTEIN 6.1 GM/DL (6.4-8.2)
--- NOTE | 2019-01-14 09:14 | Oncology Progress Note ---
Subjective Date Seen by a Provider: Jan 14, 2019 Time Seen by a Provider: 09:08 Subjective/Events-last exam Pt cough up bloody sputum last night and this morning. He had one unit Plt yesterday and his Plt is up from 8 yesterday afternoon to 23 this morning. Hb is up to 8.1 without transfusion. WBC 2.1 Last temp spike was 2am 01/13/19, over 24 hrs ago. Pt stated this morning he is feeling slightly better but still very weak and SOB. Data Review Labs Laboratory Tests 01/13/19 13:55 01/14/19 06:35 Laboratory Tests 01/12/19 06:30: White Blood Count 2.7L, Red Blood Count 2.15L, Hemoglobin 6.6*L, Hematocrit 20*L , Red Cell Distribution Width 16.8H, Platelet Count 16*L, Mean Platelet Volume 11.3H, Lymphocytes # (Auto) 0.6L, Chloride Level 108H, Calcium Level 8.1L, Total Bilirubin 1.2H, Total Protein 5.2L, Albumin 2.7L 01/12/19 13:18: 01/13/19 06:26: White Blood Count 3.7L, Red Blood Count 2.76L, Hemoglobin 8.3#L, Hematocrit 25L, Red Cell Distribution Width 17.3H, Platelet Count 11*L, Lymphocytes # (Auto) 0.6L, Total Bilirubin 1.4H, Total Protein 6.1L, Albumin 3.0L, Sodium Level 130L, Carbon Dioxide Level 17L, Blood Urea Nitrogen 19H 01/13/19 12:40: 01/13/19 13:55: White Blood Count 3.2L, Red Blood Count 2.48L, Hemoglobin 7.4L, Hematocrit 22L, Red Cell Distribution Width 17.2H, Platelet Count 8*L, Monocytes (%) (Auto) 13H, Lymphocytes # (Auto) 0.5L 01/14/19 06:35: White Blood Count 2.7L, Red Blood Count 2.67L, Hemoglobin 8.1L, Hematocrit 24L, Red Cell Distribution Width 16.7H, Platelet Count 23*L, Lymphocytes # (Auto) 0.7L, Mean Platelet Volume 11.1H, Neutrophils # (Auto) 1.7L, Sodium Level 134L, Carbon Dioxide Level 19L, Calcium Level 8.4L, Total Bilirubin 1.2H, Total Protein 6.1L, Albumin 2.9L Laboratory Tests 01/13/19 13:55 01/14/19 06:35 Physical Exam Vital Signs Vital Signs - First Documented 01/10/19 01/10/19 01/11/19 18:30 19:29 15:12 Temp 99.9 Pulse 78 Resp 20 B/P (MAP) 177/79 (111) Pulse Ox 94 O2 Delivery Room Air O2 Flow Rate 4.00 FiO2 36 Capillary Refill : Height, Weight, BMI Height: 6'0.00" Weight: 213lbs. 5.0oz. 96.544032da; 28.9 BMI Method:Stated General Appearance: No Apparent Distress HEENT: PERRL/EOMI Neck: Non Tender, Supple Respiratory: No Accessory Muscle Use, No Respiratory Distress, Decreased Breath Sounds Cardiovascular: Regular Rate, Rhythm, Tachycardia Gastrointestinal: Non Tender, Soft Extremity: Non Tender, No Calf Tenderness, No Pedal Edema Neurologic/Psychiatric: Alert, Oriented x3 Impression & Plan Impression & Plan 1. Fever, Aspergillus pneumonia and neutropenia. Sputum grew large amount of Aspergillus niger. On Voriconozole day2 , Vanco day4, Zosyn day 6, and Acyclovir day 6. Will change IV Acyclovir to PO dose. Will keep Vancomycine for now. If no more fever for 72 hrs, then stop Vanco and then stop Zosyn. 2. MDS, pancytopenia, 7% blasts in the bone marrow, NOT in AML 11/29/18 bone marrow exam at [facility]. Thrombocytopenia did not respond to steroid treatment. Will evaluate this issue after we get the Aspergillus pneumonia under control. Plt 23k today but bloody sputum. Will give one unit of Plt today. 3. Mod-severe aortic stenosis, ? candidate for surgical repair/correction. Pt had cardiac and thoracic surgery evaluation 12/28/18. He will have more tests including JANETT on 01/19/19 to decide if he does have a critical stenosis and would be benefit from the surgical repair. Because of this, he has been chronic fatig ue and was on wheel chair/walker since 10/2018. 4. h/o RLL non-small cell lung cancer, s/p surgical resection and chemotherapy cisplatin and gemcitabine 2012. Most recent CT scan of chest and abdomen 11/26/2018 showed NO recurrence of disease. 5. Tachycardia from the infection and hypoxia. monitoring. 6. 80 pack year of smoking, stopped 2012 when he as diagnosed with lung cancer 7. h/o CAD but recent cardiac cath 10/2018 did not show any blockage or active lesion. 8. Prognosis poor. 9. Probiotics while on antibiotics. 10. Anticipate to stay in the hospital for 7-10 days. Clinical Quality Measures DVT/VTE Risk/Contraindication: Risk Factor Score Per Nursin MAREN MUSE MD Jan 14, 2019 09:14
[2019-01-14] MEDS: ACETAMINOPHEN 325 MG TABLET PO PRN (10:22)
[2019-01-14] MEDS: VORICONAZOLE 200 MG TAB (VFEND) NON-FORMULARY PO SCH ×2 (10:22→20:46)
[2019-01-14] MEDS: VANCOMYCIN 1250 MG/NS 250 ML IVPB IV SCH ×4 (10:23→18:08)
--- NOTE | 2019-01-14 10:25 | Progress Note-Hospitalist ---
Progress Note Progress Notes/Assess & Plan Date Seen 01/14/19 Time Seen by Provider: 10:22 Assessment & Plan The patient's states he feels very weak but otherwise a little better. Vital signs show the MAXIMUM TEMPERATURE to be 100.4 today. His pulse has been variable but mostly less than 100 for [place] rate on the average has been 20. The white blood count is 2700. Hemoglobin 8.1 platelet count has risen to 23,000. There is no evidence of excessive petechia or ecchymoses. Physical exam: Breath sounds are distant but clear. CV is regular. He is not flushed. Impression: Myelodysplastic syndrome. 2.pneumonia. 3.aspergillosis. GRACE ESCOBAR MD Jan 14, 2019 10:25
[2019-01-14] MEDS ORDERED: NS IV 500 ML 500 ML ONE (10:41)
[2019-01-14] MEDS: NS W/KCL 20 MEQ/L 1,000 ML IV SCH ×2 (11:06→23:38)
[2019-01-14 16:44] LABS: BASOPHILS % (AUTO) 1 % (0-10); EOSINOPHILS # (AUTO) 0.2 10^3/uL (0.0-0.3); EOSINOPHILS % (AUTO) 5 % (0-10); HEMATOCRIT 23 % (40-54); HEMOGLOBIN 7.8 G/DL (13.3-17.7); LYMPHOCYTES # (AUTO) 0.6 X 10^3 (1.0-4.0); LYMPHOCYTES % (AUTO) 17 % (12-44); MEAN CORPUSCULAR HEMOGLOBIN 30 PG (25-34); MEAN CORPUSCULAR HGB CONC 34 G/DL (32-36); MEAN CORPUSCULAR VOLUME 90 FL (80-99); MEAN PLATELET VOLUME 11.8 FL (7.4-10.4); MONOCYTES # (AUTO) 0.2 X 10^3 (0.0-1.0); MONOCYTES % (AUTO) 7 % (0-12); NEUTROPHILS # (AUTO) 2.5 X 10^3 (1.8-7.8); NEUTROPHILS % (AUTO) 70 % (42-75); RED CELL DISTRIBUTION WIDTH 17.1 % (10.0-14.5); WHITE BLOOD COUNT 3.5 10^3/uL (4.3-11.0)
[2019-01-14 16:46] LABS: PLATELET COUNT 38 10^3/uL (130-400)
[2019-01-14] MEDS: ACYCLOVIR 400 MG TABLET (ZOVIRAX) PO SCH (20:46)
[2019-01-14] MEDS: TEMAZEPAM 15 MG (RESTORIL) CAP PO PRN (20:50)
[2019-01-15] MEDS: PIPERACILLIN/TAZOBACTAM (BULK) 4.5 GM in NS (IVPB) 100 ML IV SCH ×3 (00:43→17:21)
[2019-01-15] MEDS: RT-ALBUTEROL/IPRATROPIUM 3 ML (DUONEB) VIAL INH SCH ×6 (02:11→23:00)
[2019-01-15] MEDS: VANCOMYCIN 1250 MG/NS 250 ML IVPB IV SCH ×4 (05:32→17:21)
[2019-01-15] MEDS: NS W/KCL 20 MEQ/L 1,000 ML IV SCH ×2 (05:35→15:11)
[2019-01-15 05:47] VITALS: BP 121/76
[2019-01-15] MEDS: OMEPRAZOLE 20 MG (PriLOSEC) CAP NON-FORMULARY PO SCH ×2 (06:41→16:02)
[2019-01-15] MEDS: predniSONE 20 MG TAB PO SCH (06:42)
[2019-01-15] MEDS: LACTOBACILLUS ACIDOPHILUS (PROBIOTIC) CAPSULE PO SCH ×3 (06:42→17:21)
[2019-01-15 06:57] LABS: BASOPHILS % (AUTO) 1 % (0-10); EOSINOPHILS # (AUTO) 0.1 10^3/uL (0.0-0.3); EOSINOPHILS % (AUTO) 6 % (0-10); HEMATOCRIT 21 % (40-54); HEMOGLOBIN 7.1 G/DL (13.3-17.7); LYMPHOCYTES # (AUTO) 0.5 X 10^3 (1.0-4.0); LYMPHOCYTES % (AUTO) 23 % (12-44); MEAN CORPUSCULAR HEMOGLOBIN 30 PG (25-34); MEAN CORPUSCULAR HGB CONC 34 G/DL (32-36); MEAN CORPUSCULAR VOLUME 89 FL (80-99); MEAN PLATELET VOLUME 10.9 FL (7.4-10.4); MONOCYTES # (AUTO) 0.1 X 10^3 (0.0-1.0); MONOCYTES % (AUTO) 5 % (0-12); NEUTROPHILS # (AUTO) 1.3 X 10^3 (1.8-7.8); NEUTROPHILS % (AUTO) 67 % (42-75); RED CELL DISTRIBUTION WIDTH 17.1 % (10.0-14.5)
[2019-01-15 07:02] LABS: PLATELET COUNT 16 10^3/uL (130-400)
[2019-01-15 07:16] LABS: ALANINE AMINOTRANSFERASE 30 U/L (0-55); ALBUMIN 2.8 GM/DL (3.2-4.5); ALKALINE PHOSPHATASE 66 U/L (40-136); BUN/CREATININE RATIO 17; CALCIUM 8.1 MG/DL (8.5-10.1); CARBON DIOXIDE 18 MMOL/L (21-32); CHLORIDE 108 MMOL/L (98-107); CREATININE SERUM 0.95 MG/DL (0.60-1.30); GFR ESTIMATED > 60; GLUCOSE 172 MG/DL (70-105); POTASSIUM 3.2 MMOL/L (3.6-5.0); SODIUM 137 MMOL/L (135-145); TOTAL PROTEIN 5.8 GM/DL (6.4-8.2)
--- NOTE | 2019-01-15 07:28 | NUR ---
THIS RN CALLED DR. MUSE IN REGARDS TO THE PT'S PLATELETS BEING 16. NO NEW ORDERS AT THIS TIME, WILL PASS ON TO DAY SHIFT TO MONITOR PATIENT.
[2019-01-15] MEDS: VORICONAZOLE 200 MG TAB (VFEND) NON-FORMULARY PO SCH ×2 (08:36→20:13)
[2019-01-15] MEDS: ACYCLOVIR 400 MG TABLET (ZOVIRAX) PO SCH ×2 (08:37→20:13)
--- NOTE | 2019-01-15 17:10 | Oncology Progress Note ---
Subjective Date Seen by a Provider: Jan 15, 2019 Time Seen by a Provider: 17:09 Subjective/Events-last exam Pt is feeling slightly better. No fever Low appetite Data Review Labs Laboratory Tests 01/16/19 06:35 Laboratory Tests 01/13/19 12:40: 01/13/19 13:55: White Blood Count 3.2L, Red Blood Count 2.48L, Hemoglobin 7.4L, Hematocrit 22L, Red Cell Distribution Width 17.2H, Platelet Count 8*L, Monocytes (%) (Auto) 13H, Lymphocytes # (Auto) 0.5L 01/14/19 06:35: White Blood Count 2.7L, Red Blood Count 2.67L, Hemoglobin 8.1L, Hematocrit 24L, Red Cell Distribution Width 16.7H, Platelet Count 23*L, Lymphocytes # (Auto) 0.7L, Mean Platelet Volume 11.1H, Neutrophils # (Auto) 1.7L, Sodium Level 134L, Carbon Dioxide Level 19L, Calcium Level 8.4L, Total Bilirubin 1.2H, Total Protein 6.1L, Albumin 2.9L 01/14/19 11:32: 01/14/19 15:33: White Blood Count 3.5L, Red Blood Count 2.57L, Hemoglobin 7.8L, Hematocrit 23L, Red Cell Distribution Width 17.1H, Platelet Count 38*L, Mean Platelet Volume 11.8H, Lymphocytes # (Auto) 0.6L 01/15/19 06:45: White Blood Count 2.0L, Red Blood Count 2.35L, Hemoglobin 7.1L, Hematocrit 21L, Red Cell Distribution Width 17.1H, Platelet Count 16*L, Mean Platelet Volume 10.9H, Lymphocytes # (Auto) 0.5L, Neutrophils # (Auto) 1.3L, Potassium Level 3.2L, Chloride Level 108H, Carbon Dioxide Level 18L, Glucose Level 172H, Calcium Level 8.1L, Total Protein 5.8L, Albumin 2.8L 01/16/19 06:35: White Blood Count 2.9L, Red Blood Count 2.26L, Hemoglobin 6.8*L, Hematocrit 20*L , Red Cell Distribution Width 16.6H, Platelet Count 10*L, Mean Platelet Volume 10.6H, Lymphocytes # (Auto) 0.8L, Potassium Level 3.5L, Carbon Dioxide Level 16L , Calcium Level 8.0L, Total Protein 5.6L, Albumin 2.6L, Sodium Level 131L, Total Bilirubin 1.3H Physical Exam Vital Signs Vital Signs - First Documented 01/10/19 01/10/19 01/11/19 18:30 19:29 15:12 Temp 99.9 Pulse 78 Resp 20 B/P (MAP) 177/79 (111) Pulse Ox 94 O2 Delivery Room Air O2 Flow Rate 4.00 FiO2 36 Capillary Refill : Height, Weight, BMI Height: 6'0.00" Weight: 213lbs. 5.0oz. 96.602825ie; 28.9 BMI Method:Stated General Appearance: No Apparent Distress HEENT: PERRL/EOMI Neck: Non Tender, Supple Respiratory: No Accessory Muscle Use, No Respiratory Distress, Decreased Breath Sounds Gastrointestinal: Non Tender, Soft Extremity: Non Tender, No Calf Tenderness, No Pedal Edema Neurologic/Psychiatric: Alert, Oriented x3 Impression & Plan Impression & Plan 1. Fever, Aspergillus pneumonia and neutropenia. Sputum grew large amount of Aspergillus niger. On Voriconozole day3 , Vanco day5, Zosyn day 7, and Acyclovir day 6. If no fever for 72 hrs, then stop Vanco and then stop Zosyn. 2. MDS, pancytopenia, 7% blasts in the bone marrow, NOT in AML 11/29/18 bone marrow exam at [facility]. Thrombocytopenia did not respond to steroid treatment. Will evaluate this issue after we get the Aspergillus pneumonia under control. 3. Mod-severe aortic stenosis, ? candidate for surgical repair/correction. Pt had cardiac and thoracic surgery evaluation 12/28/18. He will have more tests including JANETT on 01/19/19 to decide if he does have a critical stenosis and would be benefit from the surgical repair. Because of this, he has been chronic fatigue and was on wheel chair/walker since 10/2018. 4. h/o RLL non-small cell lung cancer, s/p surgical resection and chemotherapy cisplatin and gemcitabine 2012. Most recent CT scan of chest and abdomen 11/26/2018 showed NO recurrence of disease. 5. Tachycardia from the infection and hypoxia. monitoring. 6. 80 pack year of smoking, stopped 2012 when he as diagnosed with lung cancer 7. h/o CAD but recent cardiac cath 10/2018 did not show any blockage or active lesion. 8. Prognosis poor. 9. Probiotics while on antibiotics. 10. Anticipate to stay in the hospital for 7-10 days. Clinical Quality Measures DVT/VTE Risk/Contraindication: Risk Factor Score Per Nursin MAREN MUSE MD Jan 15, 2019 17:09
[2019-01-15 17:43] VITALS: BP 122/74
[2019-01-15] MEDS ORDERED: KCL 20 MEQ TAB (K-DUR) PO ONE ×2 (18:09→18:15)
[2019-01-15] MEDS: TEMAZEPAM 15 MG (RESTORIL) CAP PO PRN (22:09)
[2019-01-16] VITALS (9 sets, daily range): BP systolic 103–129; BP diastolic 57–79
[2019-01-16] MEDS: PIPERACILLIN/TAZOBACTAM (BULK) 4.5 GM in NS (IVPB) 100 ML IV SCH ×3 (02:05→16:59)
[2019-01-16] MEDS: RT-ALBUTEROL/IPRATROPIUM 3 ML (DUONEB) VIAL INH SCH ×6 (02:20→21:50)
[2019-01-16] MEDS: VANCOMYCIN 1250 MG/NS 250 ML IVPB IV SCH ×2 (05:42)
[2019-01-16] MEDS: LACTOBACILLUS ACIDOPHILUS (PROBIOTIC) CAPSULE PO SCH ×3 (05:49→16:59)
[2019-01-16] MEDS: OMEPRAZOLE 20 MG (PriLOSEC) CAP NON-FORMULARY PO SCH ×2 (05:49→16:29)
[2019-01-16] MEDS: predniSONE 20 MG TAB PO SCH (05:49)
[2019-01-16 06:44] LABS: BASOPHILS % (AUTO) 1 % (0-10); EOSINOPHILS # (AUTO) 0.1 10^3/uL (0.0-0.3); EOSINOPHILS % (AUTO) 5 % (0-10); LYMPHOCYTES # (AUTO) 0.8 X 10^3 (1.0-4.0); LYMPHOCYTES % (AUTO) 26 % (12-44); MEAN CORPUSCULAR HEMOGLOBIN 30 PG (25-34); MEAN CORPUSCULAR HGB CONC 34 G/DL (32-36); MEAN CORPUSCULAR VOLUME 90 FL (80-99); MEAN PLATELET VOLUME 10.6 FL (7.4-10.4); MONOCYTES # (AUTO) 0.2 X 10^3 (0.0-1.0); MONOCYTES % (AUTO) 6 % (0-12); NEUTROPHILS # (AUTO) 1.8 X 10^3 (1.8-7.8); NEUTROPHILS % (AUTO) 62 % (42-75); RED CELL DISTRIBUTION WIDTH 16.6 % (10.0-14.5); WHITE BLOOD COUNT 2.9 10^3/uL (4.3-11.0)
[2019-01-16 06:49] LABS: HEMOGLOBIN 6.8 G/DL (13.3-17.7)
[2019-01-16 06:50] LABS: HEMATOCRIT 20 % (40-54); PLATELET COUNT 10 10^3/uL (130-400)
--- NOTE | 2019-01-16 06:55 | NUR ---
THIS RN CALLED DR. MUSE IN REGARDS TO THE PT'S PLATELET COUNT BEING 10, HEMOGLOBIN BEING 6.8, AND HEMATOCRIT BEING 20. ORDERS RECEIVED FOR 1 UNIT OF PLATELETS, 1 UNIT OF PACKED RED BLOOD CELLS, DECREASE FLUIDS TO 30 MLS/HR, AND TYLENOL 500 MG PO ONCE BEFORE TRANSFUSION. ORDERS READ BACK AND VERIFIED.
[2019-01-16] MEDS ORDERED: ACETAMINOPHEN 500 MG TAB (TYLENOL) PO NR (07:00)
[2019-01-16 07:04] LABS: ALANINE AMINOTRANSFERASE 25 U/L (0-55); ALBUMIN 2.6 GM/DL (3.2-4.5); ALKALINE PHOSPHATASE 58 U/L (40-136); BILIRUBIN,TOTAL 1.3 MG/DL (0.1-1.0); BUN/CREATININE RATIO 13; CARBON DIOXIDE 16 MMOL/L (21-32); CHLORIDE 105 MMOL/L (98-107); CREATININE SERUM 1.03 MG/DL (0.60-1.30); GFR ESTIMATED > 60; GLUCOSE 94 MG/DL (70-105); POTASSIUM 3.5 MMOL/L (3.6-5.0); SODIUM 131 MMOL/L (135-145); TOTAL PROTEIN 5.6 GM/DL (6.4-8.2)
[2019-01-16] MEDS ORDERED: NS IV 500 ML 500 ML IV SCH (08:30)
[2019-01-16] MEDS: VORICONAZOLE 200 MG TAB (VFEND) NON-FORMULARY PO SCH ×2 (09:52→20:28)
[2019-01-16] MEDS: ACYCLOVIR 400 MG TABLET (ZOVIRAX) PO SCH ×2 (09:52→20:28)
--- NOTE | 2019-01-16 12:44 | Oncology Progress Note ---
Subjective Date Seen by a Provider: Jan 16, 2019 Time Seen by a Provider: 12:43 Subjective/Events-last exam No fever. Feeling better Still weak and low appetite. No bleeding Data Review Labs Laboratory Tests 01/16/19 06:35 Laboratory Tests 01/13/19 13:55: White Blood Count 3.2L, Red Blood Count 2.48L, Hemoglobin 7.4L, Hematocrit 22L, Red Cell Distribution Width 17.2H, Platelet Count 8*L, Monocytes (%) (Auto) 13H, Lymphocytes # (Auto) 0.5L 01/14/19 06:35: White Blood Count 2.7L, Red Blood Count 2.67L, Hemoglobin 8.1L, Hematocrit 24L, Red Cell Distribution Width 16.7H, Platelet Count 23*L, Lymphocytes # (Auto) 0 .7L, Mean Platelet Volume 11.1H, Neutrophils # (Auto) 1.7L, Sodium Level 134L, Carbon Dioxide Level 19L, Calcium Level 8.4L, Total Bilirubin 1.2H, Total Protein 6.1L, Albumin 2.9L 01/14/19 11:32: 01/14/19 15:33: White Blood Count 3.5L, Red Blood Count 2.57L, Hemoglobin 7.8L, Hematocrit 23L, Red Cell Distribution Width 17.1H, Platelet Count 38*L, Lymphocytes # (Auto) 0.6L, Mean Platelet Volume 11.8H 01/15/19 06:45: White Blood Count 2.0L, Red Blood Count 2.35L, Hemoglobin 7.1L, Hematocrit 21L, Red Cell Distribution Width 17.1H, Platelet Count 16*L, Mean Platelet Volume 10.9H, Neutrophils # (Auto) 1.3L, Lymphocytes # (Auto) 0.5L, Potassium Level 3.2L, Chloride Level 108H, Carbon Dioxide Level 18L, Glucose Level 172H, Calcium Level 8.1L, Total Protein 5.8L, Albumin 2.8L 01/16/19 06:35: White Blood Count 2.9L, Red Blood Count 2.26L, Hemoglobin 6.8*L, Hematocrit 20*L , Red Cell Distribution Width 16.6H, Platelet Count 10*L, Mean Platelet Volume 10.6H, Lymphocytes # (Auto) 0.8L, Potassium Level 3.5L, Carbon Dioxide Level 16L , Calcium Level 8.0L, Total Protein 5.6L, Albumin 2.6L, Sodium Level 131L, Total Bilirubin 1.3H Physical Exam Vital Signs Vital Signs - First Documented 01/10/19 01/10/19 01/11/19 18:30 19:29 15:12 Temp 99.9 Pulse 78 Resp 20 B/P (MAP) 177/79 (111) Pulse Ox 94 O2 Delivery Room Air O2 Flow Rate 4.00 FiO2 36 Capillary Refill : Height, Weight, BMI Height: 6'0.00" Weight: 213lbs. 5.0oz. 96.598516ve; 28.9 BMI Method:Stated General Appearance: No Apparent Distress HEENT: PERRL/EOMI Neck: Non Tender, Supple Respiratory: No Accessory Muscle Use, No Respiratory Distress, Decreased Breath Sounds Cardiovascular: Regular Rate, Rhythm Gastrointestinal: Non Tender, Soft Extremity: Non Tender, No Calf Tenderness, No Pedal Edema Neurologic/Psychiatric: Alert, Oriented x3 Impression & Plan Impression & Plan 1. Fever, Aspergillus pneumonia and neutropenia. Sputum grew large amount of Aspergillus niger. On Voriconozole day4 , Zosyn day 8, and Acyclovir day 7 (5 day IV and 2 day PO). If no fever for 72 hrs, stop Vanco today and then stop Zosyn in 1-2 days if no fever. 2. MDS, pancytopenia, 7% blasts in the bone marrow, NOT in AML 11/29/18 bone marrow exam at [facility]. Thrombocytopenia did not respond to steroid treatment. Will evaluate this issue after we get the Aspergillus pneumonia under control. Plt 10 today. Hb 6.8. Will give one unit Plt and one RBC. 3. Mod-severe aortic stenosis, ? candidate for surgical repair/correction. Pt had cardiac and thoracic surgery evaluation 12/28/18. He will have more tests including JANETT on 01/19/19 to decide if he does have a critical stenosis and would be benefit from the surgical repair. Because of this, he has been chronic fatigue and was on wheel chair/walker since 10/2018. 4. h/o RLL non-small cell lung cancer, s/p surgical resection and chemotherapy cisplatin and gemcitabine 2012. Most recent CT scan of chest and abdomen 11/26/2018 showed NO recurrence of disease. 5. Tachycardia from the infection and hypoxia. monitoring. 6. 80 pack year of smoking, stopped 2012 when he as diagnosed with lung cancer 7. h/o CAD but recent cardiac cath 10/2018 did not show any blockage or active lesion. 8. Prognosis poor. 9. Probiotics while on antibiotics. 10. Anticipate to stay in the hospital for 7-10 days. Clinical Quality Measures DVT/VTE Risk/Contraindication: Risk Factor Score Per Nursin MAREN MUSE MD Jan 16, 2019 12:44
[2019-01-16] MEDS: NS W/KCL 20 MEQ/L 1,000 ML IV SCH (16:30)
[2019-01-16] MEDS: TEMAZEPAM 15 MG (RESTORIL) CAP PO PRN (20:31)
[2019-01-17] MEDS: PIPERACILLIN/TAZOBACTAM (BULK) 4.5 GM in NS (IVPB) 100 ML IV SCH ×3 (01:51→17:20)
[2019-01-17] MEDS: RT-ALBUTEROL/IPRATROPIUM 3 ML (DUONEB) VIAL INH SCH ×5 (01:55→21:04)
[2019-01-17 05:35] VITALS: BP 114/73
[2019-01-17] MEDS: OMEPRAZOLE 20 MG (PriLOSEC) CAP NON-FORMULARY PO SCH ×2 (06:28→17:21)
[2019-01-17] MEDS: LACTOBACILLUS ACIDOPHILUS (PROBIOTIC) CAPSULE PO SCH ×3 (06:28→17:21)
[2019-01-17 06:37] LABS: BASOPHILS % (AUTO) 1 % (0-10); EOSINOPHILS # (AUTO) 0.1 10^3/uL (0.0-0.3); EOSINOPHILS % (AUTO) 3 % (0-10); HEMATOCRIT 23 % (40-54); HEMOGLOBIN 7.8 G/DL (13.3-17.7); LYMPHOCYTES % (AUTO) 31 % (12-44); MEAN CORPUSCULAR HEMOGLOBIN 30 PG (25-34); MEAN CORPUSCULAR HGB CONC 34 G/DL (32-36); MEAN CORPUSCULAR VOLUME 89 FL (80-99); MEAN PLATELET VOLUME 10.5 FL (7.4-10.4); MONOCYTES # (AUTO) 0.2 X 10^3 (0.0-1.0); MONOCYTES % (AUTO) 5 % (0-12); NEUTROPHILS # (AUTO) 1.9 X 10^3 (1.8-7.8); NEUTROPHILS % (AUTO) 60 % (42-75); RED CELL DISTRIBUTION WIDTH 16.7 % (10.0-14.5); WHITE BLOOD COUNT 3.1 10^3/uL (4.3-11.0)
[2019-01-17 06:47] LABS: PLATELET COUNT 29 10^3/uL (130-400)
--- NOTE | 2019-01-17 06:50 | NUR ---
CRITICAL PLATELET COUNT OF 29 CALLED TO THIS RN. PLATELET COUNT TRENDING UPWARD, NO PHYSICIAN CONTACTED AT THIS TIME.
[2019-01-17 07:01] LABS: ALANINE AMINOTRANSFERASE 32 U/L (0-55); ALBUMIN 2.8 GM/DL (3.2-4.5); ALKALINE PHOSPHATASE 65 U/L (40-136); BILIRUBIN,TOTAL 1.3 MG/DL (0.1-1.0); BUN/CREATININE RATIO 13; CALCIUM 8.3 MG/DL (8.5-10.1); CARBON DIOXIDE 18 MMOL/L (21-32); CHLORIDE 109 MMOL/L (98-107); CREATININE SERUM 1.04 MG/DL (0.60-1.30); GFR ESTIMATED > 60; GLUCOSE 102 MG/DL (70-105); POTASSIUM 3.1 MMOL/L (3.6-5.0); SODIUM 137 MMOL/L (135-145); TOTAL PROTEIN 5.9 GM/DL (6.4-8.2)
[2019-01-17] MEDS: ACYCLOVIR 400 MG TABLET (ZOVIRAX) PO SCH ×2 (08:49→22:06)
[2019-01-17] MEDS: VORICONAZOLE 200 MG TAB (VFEND) NON-FORMULARY PO SCH ×2 (08:49→22:05)
[2019-01-17] MEDS: NS W/KCL 20 MEQ/L 1,000 ML IV SCH ×2 (08:50→17:21)
[2019-01-17 10:23] VITALS: BP 114/73
[2019-01-17] MEDS ORDERED: KCL 20 MEQ TAB (K-DUR) PO SCH (10:45)
[2019-01-17] MEDS: KCL 20 MEQ TAB (K-DUR) PO SCH ×2 (11:06→22:06)
[2019-01-17] MEDS: ACETAMINOPHEN 325 MG TABLET PO PRN (11:26)
--- NOTE | 2019-01-17 11:43 | Progress Note-Hospitalist ---
Progress Note Progress Notes/Assess & Plan Date Seen 01/17/19 Time Seen by Provider: 11:39 Assessment & Plan The patient reports that he feels slightly better. He continues to run a low- grade fever. He had his chemotherapy discontinued after day 2. He continues to receive antibiotics for pneumonia and the possibility of viral agents. Physical exam: He remains tachypneic at rest. He does not look quite so desperately ill. Lungs respirations are shallow. Breath sounds are minimal. CV shows heart rate in the 80-105 range. There are no unusual bruises are ecchymoses. Impression: Myelodysplastic syndrome. 2.bilateral pneumonia. Prognosis: Poor GRACE ESCOBAR MD Jan 17, 2019 11:43
[2019-01-17 12:00] VITALS: BP 110/68
--- NOTE | 2019-01-17 12:00 | NUR ---
GADY=870.8. SKIN WARM TO TOUCH. DENIES HEADACHE OR CHILLS. INC. OF LARGE AMT. BROWN SEMI-FORMED STOOL. UP TO CHAIR , louie poorly.
[2019-01-17] MEDS ORDERED: VANCOMYCIN INJECTION 1,000 MG in NS (IVPB) 250 ML IV SCH (15:15)
--- NOTE | 2019-01-17 15:20 | Oncology Progress Note ---
Subjective Date Seen by a Provider: Jan 17, 2019 Time Seen by a Provider: 15:14 Subjective/Events-last exam re-spike low grade temp 100.8 since last night. Off Vancomycin Cough better and no bleeding Low appetite. Loose stool last night Data Review Labs Laboratory Tests 01/17/19 06:30 Laboratory Tests 01/14/19 15:33: White Blood Count 3.5L, Red Blood Count 2.57L, Hemoglobin 7.8L, Hematocrit 23L, Red Cell Distribution Width 17.1H, Platelet Count 38*L, Mean Platelet Volume 11.8H, Lymphocytes # (Auto) 0.6L 01/15/19 06:45: White Blood Count 2.0L, Red Blood Count 2.35L, Hemoglobin 7.1L, Hematocrit 21L, Red Cell Distribution Width 17.1H, Platelet Count 16*L, Mean Platelet Volume 10.9H, Lymphocytes # (Auto) 0.5L, Neutrophils # (Auto) 1.3L, Potassium Level 3.2L, Chloride Level 108H, Carbon Dioxide Level 18L, Glucose Level 172H, Calcium Level 8.1L, Total Protein 5.8L, Albumin 2.8L 01/16/19 06:35: White Blood Count 2.9L, Red Blood Count 2.26L, Hemoglobin 6.8*L, Hematocrit 20*L , Red Cell Distribution Width 16.6H, Platelet Count 10*L, Mean Platelet Volume 10.6H, Lymphocytes # (Auto) 0.8L, Potassium Level 3.5L, Carbon Dioxide Level 16L , Calcium Level 8.0L, Total Protein 5.6L, Albumin 2.6L, Sodium Level 131L, Total Bilirubin 1.3H 01/17/19 06:30: White Blood Count 3.1L, Red Blood Count 2.63L, Hemoglobin 7.8L, Hematocrit 23L, Red Cell Distribution Width 16.7H, Platelet Count 29*L, Mean Platelet Volume 10.5H, Potassium Level 3.1L, Chloride Level 109H, Carbon Dioxide Level 18L, Calcium Level 8.3L, Total Protein 5.9L, Albumin 2.8L, Total Bilirubin 1.3H 01/17/19 11:27: Physical Exam Vital Signs Vital Signs - First Documented 01/11/19 01/11/19 01/11/19 02:17 05:36 15:12 Temp 98.7 Pulse 110 Resp 23 B/P (MAP) 111/73 (86) Pulse Ox 90 O2 Delivery Nasal Cannula O2 Flow Rate 4.00 FiO2 36 Capillary Refill : Height, Weight, BMI Height: 6'0.00" Weight: 213lbs. 5.0oz. 96.049922sn; 28.9 BMI Method:Stated General Appearance: No Apparent Distress HEENT: PERRL/EOMI Respiratory: No Accessory Muscle Use, No Respiratory Distress, Decreased Breath Sounds Gastrointestinal: Non Tender, Soft Extremity: Non Tender, No Calf Tenderness, No Pedal Edema Neurologic/Psychiatric: Alert, Oriented x3 Impression & Plan Impression & Plan 1. Fever, Aspergillus pneumonia and neutropenia. Sputum grew large amount of Aspergillus niger. On Zosyn day 9, and Acyclovir day 8 (5 day IV and 3 day PO). Pt had no fever for 72 hrs, we stop Vanco Thursday. Then he restart low temp at 100.8 last night and this morning. I will put him back on Vanco. 2. MDS, pancytopenia, 7% blasts in the bone marrow, NOT in AML 11/29/18 bone marrow exam at [facility]. Thrombocytopenia did not respond to steroid treatment. Will evaluate this issue after we get the Aspergillus pneumonia under control. No transfusion today 3. Mod-severe aortic stenosis, ? candidate for surgical repair/correction. Pt had cardiac and thoracic surgery evaluation 12/28/18. He will have more tests including JANETT on 01/19/19 to decide if he does have a critical stenosis and would be benefit from the surgical repair. Because of this, he has been chronic fatigue and was on wheel chair/walker since 10/2018. 4. h/o RLL non-small cell lung cancer, s/p surgical resection and chemotherapy cisplatin and gemcitabine 2012. Most recent CT scan of chest and abdomen 11/26/2018 showed NO recurrence of disease. 5. Tachycardia from the infection and hypoxia. monitoring. 6. 80 pack year of smoking, stopped 2012 when he as diagnosed with lung cancer 7. h/o CAD but recent cardiac cath 10/2018 did not show any blockage or active lesion. 8. Prognosis poor. 9. Probiotics while on antibiotics. 10. Anticipate to stay in the hospital for 7-10 days. 11. Replace K+ Clinical Quality Measures DVT/VTE Risk/Contraindication: Risk Factor Score Per Nursin MAREN MUSE MD Jan 17, 2019 15:20
--- NOTE | 2019-01-17 16:08 | Pulmonary Progress Note ---
Subjective Time Seen by a Provider: 16:06 Subjective/Events-last exam Pt appears improved. Sepsis Event Evaluation Height, Weight, BMI Height: 6'0.00" Weight: 213lbs. 5.0oz. 96.569708ka; 28.9 BMI Method:Stated Exam Exam Vital Signs Date Time Temp Pulse Resp B/P (MAP) Pulse Ox O2 Delivery O2 Flow Rate FiO2 01/17/19 14:35 93 High Flow N/C 4.00 01/17/19 12:00 100.8 01/17/19 12:00 100.8 102 22 110/68 (82) 94 High Flow N/C 4.00 01/17/19 11:26 100.7 01/17/19 11:20 100.8 01/17/19 10:23 104 95 01/17/19 09:00 High Flow N/C 4.00 01/17/19 06:29 95 High Flow N/C 4.00 01/17/19 05:35 99.2 104 20 114/73 (87) 96 High Flow N/C 4.00 01/17/19 01:55 93 NIV CPAP 4.00 01/16/19 23:51 99.5 01/16/19 21:51 96 High Flow N/C 4.00 01/16/19 20:37 High Flow N/C 4.00 01/16/19 18:34 97 High Flow N/C 4.00 01/16/19 18:11 96.6 80 20 129/79 (96) 96 High Flow N/C 4.00 I & O 01/17/19 07:00 Intake Total 3171 ml Output Total 2250 ml Balance 921 ml Height & Weight Height: 6'0.00" Weight: 213lbs. 5.0oz. 96.059236eu; 28.9 BMI Method:Stated General Appearance: No Apparent Distress HEENT: PERRL/EOMI Neck: Non Tender, Supple Respiratory: No Accessory Muscle Use, No Respiratory Distress, Decreased Breath Sounds Cardiovascular: Regular Rate, Rhythm Extremity: Non Tender, No Calf Tenderness, No Pedal Edema Neurologic/Psychiatric: Alert, Oriented x3 Results Lab Laboratory Tests 01/16/19 06:35 01/17/19 06:30 Assessment/Plan Assessment/Plan SOB with pulmonary edema -improved Aspergillus PNA -Voriconazole blood streaked sputum -resolved Hypokalemia -Replace Severe Anemia -S/p transfusions -Monitor -Oncology managing Pancytopenia -monitor LOREN CHRISTIAN DO Jan 17, 2019 16:08
[2019-01-17] MEDS: VANCOMYCIN 1250 MG/NS 250 ML IVPB IV SCH ×2 (17:20)
[2019-01-17 17:42] VITALS: BP 108/70
[2019-01-17] MEDS: morphine INJ 4 MG/ML 1 ML (VIAL/SYRINGE) IV PRN (18:32)
[2019-01-18] MEDS: RT-ALBUTEROL/IPRATROPIUM 3 ML (DUONEB) VIAL INH SCH ×4 (02:25→22:10)
[2019-01-18] MEDS: VANCOMYCIN 1250 MG/NS 250 ML IVPB IV SCH ×4 (04:17→15:46)
[2019-01-18] MEDS: ACETAMINOPHEN 325 MG TABLET PO PRN ×2 (04:18→19:38)
[2019-01-18] MEDS ORDERED: KCL 20 MEQ TAB (K-DUR) PO SCH (06:00)
[2019-01-18 06:13] VITALS: BP 111/71
[2019-01-18] MEDS: LACTOBACILLUS ACIDOPHILUS (PROBIOTIC) CAPSULE PO SCH ×3 (06:23→16:30)
[2019-01-18] MEDS: OMEPRAZOLE 20 MG (PriLOSEC) CAP NON-FORMULARY PO SCH ×2 (06:23→16:31)
[2019-01-18 06:36] LABS: BASOPHILS # (AUTO) 0.1 10^3/uL (0.0-0.1); BASOPHILS % (AUTO) 1 % (0-10); EOSINOPHILS # (AUTO) 0.1 10^3/uL (0.0-0.3); EOSINOPHILS % (AUTO) 2 % (0-10); HEMATOCRIT 25 % (40-54); HEMOGLOBIN 8.3 G/DL (13.3-17.7); LYMPHOCYTES # (AUTO) 1.2 X 10^3 (1.0-4.0); LYMPHOCYTES % (AUTO) 27 % (12-44); MEAN CORPUSCULAR HEMOGLOBIN 30 PG (25-34); MEAN CORPUSCULAR HGB CONC 34 G/DL (32-36); MEAN CORPUSCULAR VOLUME 89 FL (80-99); MEAN PLATELET VOLUME 8.7 FL (7.4-10.4); MONOCYTES # (AUTO) 0.1 X 10^3 (0.0-1.0); MONOCYTES % (AUTO) 3 % (0-12); NEUTROPHILS # (AUTO) 2.8 X 10^3 (1.8-7.8); NEUTROPHILS % (AUTO) 67 % (42-75); RED CELL DISTRIBUTION WIDTH 16.4 % (10.0-14.5); WHITE BLOOD COUNT 4.2 10^3/uL (4.3-11.0)
[2019-01-18 06:37] LABS: PLATELET COUNT 15 10^3/uL (130-400)
--- NOTE | 2019-01-18 06:47 | NUR ---
CRITICAL PLATELET COUNT OF 15. DR MUSE NOTIFIED AND NO NEW ORDERS RECEIVED
[2019-01-18 06:52] LABS: ALANINE AMINOTRANSFERASE 23 U/L (0-55); ALBUMIN 2.6 GM/DL (3.2-4.5); ALKALINE PHOSPHATASE 68 U/L (40-136); BILIRUBIN,TOTAL 1.1 MG/DL (0.1-1.0); BUN/CREATININE RATIO 11; CALCIUM 8.2 MG/DL (8.5-10.1); CARBON DIOXIDE 18 MMOL/L (21-32); CHLORIDE 106 MMOL/L (98-107); CREATININE SERUM 1.05 MG/DL (0.60-1.30); GFR ESTIMATED > 60; GLUCOSE 87 MG/DL (70-105); POTASSIUM 3.5 MMOL/L (3.6-5.0); SODIUM 134 MMOL/L (135-145); TOTAL PROTEIN 5.6 GM/DL (6.4-8.2)
--- NOTE | 2019-01-18 07:23 | Pulmonary Progress Note ---
Subjective Time Seen by a Provider: 07:22 Subjective/Events-last exam Pt complains of SOB. Sepsis Event Evaluation Height, Weight, BMI Height: 6'0.00" Weight: 213lbs. 5.0oz. 96.814905dx; 28.9 BMI Method:Stated Exam Exam Vital Signs Date Time Temp Pulse Resp B/P (MAP) Pulse Ox O2 Delivery O2 Flow Rate FiO2 01/18/19 06:13 99.0 112 26 111/71 (84) 93 High Flow N/C 4.00 01/18/19 05:10 99.5 01/18/19 04:50 100.9 01/18/19 04:20 102.3 01/18/19 04:18 102.5 01/18/19 02:37 98 High Flow N/C 4.00 01/17/19 23:49 98.2 01/17/19 21:15 98 High Flow N/C 4.00 01/17/19 21:00 High Flow N/C 4.00 01/17/19 19:28 98.2 01/17/19 17:42 98.1 93 20 108/70 (83) 97 High Flow N/C 4.00 01/17/19 16:00 97.4 01/17/19 14:35 93 High Flow N/C 4.00 01/17/19 12:00 100.8 102 22 110/68 (82) 94 High Flow N/C 4.00 01/17/19 11:26 100.7 01/17/19 11:20 100.8 01/17/19 10:23 104 95 01/17/19 09:00 High Flow N/C 4.00 I & O 01/18/19 07:00 Intake Total 2000 ml Output Total 1450 ml Balance 550 ml Height & Weight Height: 6'0.00" Weight: 213lbs. 5.0oz. 96.445053dr; 28.9 BMI Method:Stated General Appearance: No Apparent Distress HEENT: PERRL/EOMI Neck: Non Tender, Supple Respiratory: No Accessory Muscle Use, No Respiratory Distress, Decreased Breath Sounds Cardiovascular: Regular Rate, Rhythm Extremity: Non Tender, No Calf Tenderness, No Pedal Edema Neurologic/Psychiatric: Alert, Oriented x3 Skin: Normal Color, Warm/Dry Lymphatic: No Adenopathy Results Lab Laboratory Tests 01/17/19 06:30 01/18/19 06:20 Assessment/Plan Assessment/Plan SOB with pulmonary edema -improved -repeat CXR Aspergillus PNA -Voriconazole blood streaked sputum -resolved Hypokalemia -Replace Severe Anemia -S/p transfusions -Monitor -Oncology managing Pancytopenia -monitor LOREN CHRISTIAN DO Jan 18, 2019 07:23
[2019-01-18] MEDS: PIPERACILLIN/TAZOBACTAM (BULK) 4.5 GM in NS (IVPB) 100 ML IV SCH ×3 (07:56→23:51)
[2019-01-18] MEDS: VORICONAZOLE 200 MG TAB (VFEND) NON-FORMULARY PO SCH ×2 (08:36→20:14)
[2019-01-18] MEDS: ACYCLOVIR 400 MG TABLET (ZOVIRAX) PO SCH ×2 (08:37→20:14)
[2019-01-18] MEDS ORDERED: VORICONAZOLE 200 MG TAB (VFEND) NON-FORMULARY PO NR (10:30)
--- NOTE | 2019-01-18 10:31 | NUR ---
RECEIVED A CALL FROM DR MUSE, DISCUSSED VORICONAZOLE DOSING, CHANGED TO 4MG/KG (400MG) ORAL Q12 HOURS.
--- NOTE | 2019-01-18 10:52 | Diagnostic Imaging Report ---
EXAMINATION: Portable erect AP chest at 1008 hours. INDICATION: Respiratory distress. FINDINGS: The prior exam of 01/12/2019 noted a prominent area of increased density in the right midlung as well as alveolar/interstitial infiltrate involving the right lung base and a right pleural effusion. There was also pneumonia/atelectasis in the left perihilar region. Those findings are again evident on this study and do not seem to have changed significantly. If anything, the density in the right lung base is perhaps slightly greater than on the prior exam. The lung apices and the left lung base remain generally clear. The heart is stable in size. The mediastinum is not widened. The osseous structures are intact. The right-sided Port-A-Cath is unchanged in position. IMPRESSION: 1. There is persistent involvement of both lungs by pneumonia/atelectasis, particularly the right lung. The density in the right lung base may be somewhat greater than noted on the prior exam. The overall appearance of the chest is otherwise stable. 2. A followup exam would be recommended for continued evaluation. Dictated by: Dictated on workstation # [id number]
--- NOTE | 2019-01-18 11:53 | Physical Therapy Evaluation ---
PT Evaluation-General Medical Diagnosis Admission Date Jan 10, 2019 at 14:44 Medical Diagnosis: pneumonia/weakness Onset Date: Jan 10, 2019 Therapy Diagnosis Therapy Diagnosis: generalized weakness/debility Height/Weight Height (Feet): 6 Height (Inches): 0.00 Weight (Pounds): 213 Weight (Ounces): 5.0 Precautions Precautions/Isolations: Chemo Precautions, Fall Prevention Weight Bear Status Right Lower Extremity: Right Weight Bearing/Tolerated Left Lower Extremity: Left Weight Bearing/Tolerated Referral Physician: Macie Reason for Referral: Evaluation/Treatment Medical History Pertinent Medical History: COPD, HTN Additional Medical History lung cancer Current History ER secondary to SOA and weakness Reviewed History: Yes Social History Home: Single Level Current Living Status: Spouse Prior/Core FIM Prior Level of Function Therapy Code Descriptions/Definitions Functional [place] Measure: 0=Not Assessed/NA 4=Minimal Assistance 1=Total Assistance 5=Supervision or Setup 2=Maximal Assistance 6=Modified [place] 3=Moderate Assistance 7=Complete [place] Therapy Quality Codes: 6 Independent with activity with or without an assistive device 5 Patient requires set up or clean up by helper. Patient completes activity by themselves 4 Supervision or touching assist (CGA). [place] provide cues , steadying assist 3 The helper provides less than half the effort to complete the activity 2 The helper provides more than half the effort to complete the activity 1 Dependent. The helper does all the effort to complete an activity 7 Patient refused to complete or attempt activity 9 The patient did not perform the activity before the current illness or injury 88 Not attempted due to Medical conditions or safety concerns Functional Abilities and Goals: Independent: Patient completed the activities by him/herself, with or without an assistive device, with no assistance from a helper. Needed Some Help: Patient needed partial assistance from another person to complete activities. Dependent: A helper completed the activities for the patient. Unknown: Not Applicable: Bed Mobility: 5 Transfers (B,C,W/C) (FIM): 5 Gait: 5 Indoor Mobility (Ambulation): Independent Prior Devices Use: Walker PT Evaluation-Current Subjective Patient states he is weak and agrees to PT. Family present. Pain Numeric Pain Scale: 0-No Pain Location: No Pain Reported Objective Patient Orientation: Normal For Age Problem Solving: Fair Attachments: Oxygen (HF), IV ROM/Strength ROM Lower Extremities bilateral LE WFL Strenght Lower Extremities 3-/5 grossly bilateral LE Integumentary/Posture Integumentary refer to nursing notes Bladder Incontinence: Yes Posture WFL Neuromuscular (Tone, Coordination, Reflexes) grossly intact Sensory Vision: Functional Hearing: Impaired Sensation Right Lower Extremit: Intact Sensation Left Lower Extremity: Intact Transfers Therapy Code Descriptions/Definitions Functional [place] Measure: 0=Not Assessed/NA 4=Minimal Assistance 1=Total Assistance 5=Supervision or Setup 2=Maximal Assistance 6=Modified [place] 3=Moderate Assistance 7=Complete [place] Therapy Quality Codes: 6 Independent with activity with or without an assistive device 5 Patient requires set up or clean up by helper. Patient completes activity by themselves 4 Supervision or touching assist (CGA). [place] provide cues , steadying assist 3 The helper provides less than half the effort to complete the activity 2 The helper provides more than half the effort to complete the activity 1 Dependent. The helper does all the effort to complete an activity 7 Patient refused to complete or attempt activity 9 The patient did not perform the activity before the current illness or injury 88 Not attempted due to Medical conditions or safety concerns Transfers (B, C, W/C) (FIM): 4 Scootin Rollin Roll Left to Right (QC): 4 Supine to/from Sit: 4 Sit to/from Stand: 4 Sit to Lying (QC): 4 Lying to Sitting/Side of Bed(Q: 4 Sit to Stand (QC): 4 Chair/[id number] Xfer(QC): 4 CGA for safety due to weakness Gait Does the Patient Walk?: No and Walking Goal IS indicated Mode of Locomotion: Both Anticipated Mode of Locomotion: Both Gait (FIM): 1 Distance (FIM): 1=up to 49 ft Distance: 3 steps Gait Level of Assist: 4 Gait Persons Needed: 1 Gait Assistive Device: FWW Comments/Gait Description unsteady/weakness Balance Sitting Static: Good Sitting Dynamic: Good Standing Static: Fair Standing Dynamic: Fair Treatment bilateral LE exercises in sit and stand x 10 reps each to increase strength and functional mobility. In recliner, AP, QS, HS, SLR with bilateral LE elevated with foot rest; LAQ in sit and standing marching with use of FWW. Assessment/Needs 73 y.o. male, will benefit from skilled PT to address functional strength and mobility to improve current LOF. Patient fatigues very quickly and requires recovery periods due to this. Patient, per physician report, has Poor prognosis. Rehab Potential: Poor PT Fdc Goals Fdc Goals PT Fdc Goals Time Frame: Feb 12, 2019 Transfers (B,C,W/C) (FIM): 5 Sit to Lying (QC): 5 Lying-Sitting on Side/Bed(QC): 5 Sit to Stand (QC): 5 Rollin Roll Left to Right (QC): 5 Chair/[id number]-Mbqzx Xfer(QC): 5 Car Transfer (QC): 5 Does the Patient Walk: No and Walking Goal IS indicated Gait (FIM): 1 Gait distance (FIM): 1=up to 49 ft Distance: 45' Walk 10 feet (QC): 5 Walk 10ft-Uneven Surface(QC): 5 Walk 50ft with 2 Turns (QC): 88 Walk 150 ft (QC): 88 Gait Level of Assist: 5 Gait Assistive Device: FWW PT Plan Problem List Problem List: Activity Tolerance, Functional Strength, Safety, Balance, Gait, Transfer, Bed Mobility Treatment/Plan Treatment Plan: Continue Plan of Care Treatment Plan: Bed Mobility, Education, Functional Activity Julia, Functional Strength, Gait, Safety, Therapeutic Exercise, Transfers Treatment Duration: Feb 12, 2019 Frequency: 6 times per week Estimated Hrs Per Day: .25 hour per day Patient and/or Family Agrees t: Yes Discharge Recommendations Therapy D/C Recommendations: Home w/ Family Support, Half-Way Placement Time/GCodes Time In: 1101 Time Out: 1124 Total Billed Treatment Time: 23 Total Billed Treatment 1 visit EVLowC 8 min EX 15 min RAMESH POP PT Jan 18, 2019 11:53
--- NOTE | 2019-01-18 14:49 | Oncology Progress Note ---
Subjective Date Seen by a Provider: Jan 18, 2019 Time Seen by a Provider: 14:42 Subjective/Events-last exam Pt still very weak. Yony fever last night at 102. Coughing is better. No bleeding. WBC and Hb are better today. Plt 16k Data Review Labs Laboratory Tests 01/18/19 06:20 Laboratory Tests 01/16/19 06:35: White Blood Count 2.9L, Red Blood Count 2.26L, Hemoglobin 6.8*L, Hematocrit 20*L , Red Cell Distribution Width 16.6H, Platelet Count 10*L, Mean Platelet Volume 10.6H, Lymphocytes # (Auto) 0.8L, Sodium Level 131L, Potassium Level 3.5L, Carbon Dioxide Level 16L, Calcium Level 8.0L, Total Bilirubin 1.3H, Total Protein 5.6L, Albumin 2.6L 01/17/19 06:30: White Blood Count 3.1L, Red Blood Count 2.63L, Hemoglobin 7.8L, Hematocrit 23L, Red Cell Distribution Width 16.7H, Platelet Count 29*L, Mean Platelet Volume 10.5H, Potassium Level 3.1L, Carbon Dioxide Level 18L, Calcium Level 8.3L, Total Bilirubin 1.3H, Total Protein 5.9L, Albumin 2.8L, Chloride Level 109H 01/17/19 11:27: 01/18/19 06:20: White Blood Count 4.2L, Red Blood Count 2.80L, Hemoglobin 8.3L, Hematocrit 25L, Red Cell Distribution Width 16.4H, Platelet Count 15*L, Sodium Level 134L, Potassium Level 3.5L, Carbon Dioxide Level 18L, Calcium Level 8.2L, Total Bilirubin 1.1H, Total Protein 5.6L, Albumin 2.6L Physical Exam Vital Signs Vital Signs - First Documented 01/12/19 01/12/19 00:00 07:29 Temp 101.0 Pulse 160 Resp 35 B/P (MAP) 202/127 (152) Pulse Ox 89 O2 Delivery Nasal Cannula O2 Flow Rate 4.00 4.00 FiO2 50 Capillary Refill : Height, Weight, BMI Height: 6'0.00" Weight: 213lbs. 5.0oz. 96.701843ce; 28.9 BMI Method:Stated General Appearance: No Apparent Distress Neck: Non Tender, Supple Respiratory: No Accessory Muscle Use, No Respiratory Distress Cardiovascular: Regular Rate, Rhythm, Tachycardia Gastrointestinal: Non Tender, Soft Extremity: Non Tender, No Pedal Edema Neurologic/Psychiatric: Alert, Oriented x3 Impression & Plan Impression & Plan 1. Fever, Aspergillus pneumonia and neutropenia. Sputum grew large amount of Aspergillus niger. On Varioconazole day 4, (one day IV and 3 days of PO at 200mg bid), Zosyn day 10, and Acyclovir day 9 (5 day IV and 4 day PO). Pt had no fever for 72 hrs, we stop Vanco Thursday. Then he restart low temp at 100.8 last night and this morning. He was put back on Vanco 01/17/19. He then spike fever again 102 last night. I will increase the Varioconazole to 400mg bid PO. Dr Alfred repeated CXR which shows interstitial infiltration similar to before. 2. 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 Thrombocytopenia did not respond to steroid treatment. Will evaluate this issue after we get the Aspergillus pneumonia under control. WBC and HB better today. Closely monitoring Plt for now. 3. Mod-severe aortic stenosis, ? candidate for surgical repair/correction. Pt h ad cardiac and thoracic surgery evaluation 12/28/18. He will have more tests including JANETT on 01/19/19 to decide if he does have a critical stenosis and would be benefit from the surgical repair. Because of this, he has been chronic fatigue and was on wheel chair/walker since 10/2018. 4. h/o RLL non-small cell lung cancer, s/p surgical resection and chemotherapy cisplatin and gemcitabine 2012. Most recent CT scan of chest and abdomen 11/26/2018 showed NO recurrence of disease. 5. Tachycardia from the infection and hypoxia. monitoring. 6. 80 pack year of smoking, stopped 2012 when he as diagnosed with lung cancer 7. h/o CAD but recent cardiac cath 10/2018 did not show any blockage or active lesion. 8. Prognosis poor. 9. Probiotics while on antibiotics. 10. Anticipate to stay in the hospital for 7-10 days. 11. Physical therapy. Clinical Quality Measures DVT/VTE Risk/Contraindication: Risk Factor Score Per Nursin MAREN MUSE MD Jan 18, 2019 14:49
--- NOTE | 2019-01-18 15:23 | Occupational Therapy Eval ---
OT Evaluation-General/PLF Medical Diagnosis Admission Date Jan 10, 2019 at 14:44 Medical Diagnosis: pneumonia/weakness Onset Date: Jan 10, 2019 Therapy Diagnosis Therapy Diagnosis: Weakness Height/Weight Height (Feet): 6 Height (Inches): 0.00 Weight (Pounds): 213 Weight (Ounces): 5.0 Precautions Precautions/Isolations: Chemo Precautions, Fall Prevention Safety Interventions: None Weight Bear Status Weight Bearing Restriction: Weight Bearing/Tolerated Referral Physician: Macie Referral Reason: Activity Tolerance, Self Care, Evaluation/Treatment, Strengthening/ROM Medical History Pertinent Medical History: COPD, HTN Additional Medical History pulmonary edema, hypokalemia, severe anemia, pancytopenia, mod-severe aortic stenosis, cardiac and thoracic surgery. Current History Pt. currently lives with spouse in [place]. Uses walker and cane at home. States that he has been on oxygen for approximately 3 weeks. Reviewed History: Yes Social History Home: Single Level Current Living Status: Spouse Entry Into Home: Stairs With Railing Steps Into Home: 2 ADL-Prior Level of Function Therapy Code Descriptions/Definitions Functional [place] Measure: 0=Not Assessed/NA 4=Minimal Assistance 1=Total Assistance 5=Supervision or Setup 2=Maximal Assistance 6=Modified [place] 3=Moderate Assistance 7=Complete [place] Therapy Quality Codes: 6 Independent with activity with or without an assistive device 5 Patient requires set up or clean up by helper. Patient completes activity by themselves 4 Supervision or touching assist (CGA). [place] provide cues , steadying assist 3 The helper provides less than half the effort to complete the activity 2 The helper provides more than half the effort to complete the activity 1 Dependent. The helper does all the effort to complete an activity 7 Patient refused to complete or attempt activity 9 The patient did not perform the activity before the current illness or injury 88 Not attempted due to Medical conditions or safety concerns Functional Abilities and Goals: Independent: Patient completed the activities by him/herself, with or without an assistive device, with no assistance from a helper. Needed Some Help: Patient needed partial assistance from another person to complete activities. Dependent: A helper completed the activities for the patient. Unknown: Not Applicable: ADL PLOF Comments Pt. was independent prior to current illness. Self Care: Independent Functional Cognition: Independent DME/Equipment: Bath Chair, Shower DME/Equipment Comments Pt. has a walker and cane. OT Current Status Subjective Pt. does not report pain level, but states that the tightness in his chest is "not comfortable." Pt. assisted to bed and positioned to comfort level. Appearance Pt. up in chair. Agrees to work with OT. Mental Status/Objective Patient Orientation: Person, Place Attachments: IV, Oxygen ADL-Treatment Lower Body Dressing (FIM): 4 (Min assist to doff/don slipper socks.) Lower Body Dressing (QC): 4 On/Off Footwear (QC): 4 Transfers (B, C, W/C) (FIM): 3 (Mod assist overall sit-stand out of chair and transfer to bed. SBA sit-supine.) Other Treatments All needs are met at bed level. Pt. demonstrates weakness and would benefit from skilled treatment to increase ADL skills and strength. Education OT Patient Education: Correct positioning, Modified ADL techniques, Progress toward Goal/Update tx plan, Purpose of tx/functional activities, Reviewed precautions, Rehab process, Transfer techniques Teaching Recipient: Patient Teaching Methods: Demonstration, Discussion Response to Teaching: Verbalize Understanding, Return Demonstration OT Short Term Goals Short Term Goals 1=Demonstrate adherence to instructed precautions during ADL tasks. 2=Patient will verbalize/demonstrate understanding of assistive devices/modifications for ADL. 3=Patient will improve strength/tolerance for activity to enable patient to perform ADL's. OT Pilot Plant Technician Goals Care Home Goals Time Frame: Feb 01, 2019 Eating (FIM): 6 Eating (QC): 6 Groomin Oral Hygiene (QC): 6 Bathing(FIM): 5 Shower/Bathe Self (QC): 5 Upper Body Dressing(FIM): 5 Upper Body Dressing (QC): 5 Lower Body Dressing(FIM): 5 Lower Body Dressing (QC): 5 On/Off Footwear (QC): 5 Toileting(FIM): 6 Toileting Hygiene (QC): 6 Transfers (B,C,W/C) (FIM): 6 Toilet/Commode Transfer(FIM): 6 Toilet/Commode Transfer (QC): 6 Shower Transfer(FIM): 5 Additional Goals: 1-Demonstrate ADL Tasks, 2-Verbalize Understanding, 3-ImproveStrength/Julia 1=Demonstrate adherence to instructed precautions during ADL tasks. 2=Patient will verbalize/demonstrate understanding of assistive devices/modifications for ADL. 3=Patient will improve strength/tolerance for activity to enable patient to perform ADL's. OT Education/Plan Problem List/Assessment Assessment: Decreased Activ Tolerance, Dependent Transfers, Impaired Funct Balance, Impaired I ADL's, Impaired Self-Care Skills Discharge Recommendations Plan/Recommendations: Continue POC Therapy D/C Recommendations: Home w/ Family Support, Scheduled Assistance Comment To be determined. Treatment Plan/Plan of Care Treatment,Training & Education: Yes Patient would benefit from OT for education, treatment and training to promote independence in ADL's, mobility, safety and/or upper extremity function for ADL's. Plan of Care: ADL Retraining, Caregiver Training, Functional Mobility, UE Funct Exercise/Act Comment At end of treatment pt. was encouraged to drink a protein shake, as he has reported having no appetite. Pt. agrees and a strawberry shake was ordered for him. Treatment Duration: Feb 01, 2019 Frequency: 5 times per week Estimated Hrs Per Day: .5 hour per day Agreement: Yes Rehab Potential: Fair Time/GCodes Start Time: 13:30 Stop Time: 13:55 Total Time Billed (hr/min): 25 Billed Treatment Time 1, EVM x 10minutes, ADL x 15minutes MARY ZHAO OT Jan 18, 2019 15:23
--- NOTE | 2019-01-18 15:53 | Progress Note-Hospitalist ---
Progress Note Progress Notes/Assess & Plan Date Seen 01/18/19 Time Seen by Provider: 15:51 Assessment & Plan The patient reports that he has no energy or appetite. Physical exam continues to be tachypneic at rest. Lungs show shallow respirations and all lung tim. CV is regular. Impression: Myelodysplasia and steady decline. GRACE ESCOBAR MD Jan 18, 2019 15:53
[2019-01-18 17:31] VITALS: BP 111/63
[2019-01-18] MEDS: ONDANSETRON 4 MG/2 ML (SDV) Z0FRAN IV PRN (18:42)
[2019-01-18] MEDS: NS W/KCL 20 MEQ/L 1,000 ML IV SCH (23:55)
[2019-01-19] VITALS (9 sets, daily range): BP systolic 90–129; BP diastolic 56–68
[2019-01-19] MEDS: ACETAMINOPHEN 325 MG TABLET PO PRN ×2 (01:19→17:26)
[2019-01-19] MEDS: RT-ALBUTEROL/IPRATROPIUM 3 ML (DUONEB) VIAL INH SCH ×3 (02:50→20:34)
[2019-01-19] MEDS ORDERED: TROUGH ORDER-PHARMACY XX NR (03:00)
--- NOTE | 2019-01-19 03:45 | NUR ---
LAB CALLED ABOUT CRITICAL VANCO TROUGH OF 26.4. 0400 VANCO DOSE NOT GIVEN
[2019-01-19] MEDS: VANCOMYCIN 1250 MG/NS 250 ML IVPB IV SCH ×2 (04:16)
[2019-01-19] MEDS: OMEPRAZOLE 20 MG (PriLOSEC) CAP NON-FORMULARY PO SCH ×2 (06:13→17:26)
[2019-01-19] MEDS: LACTOBACILLUS ACIDOPHILUS (PROBIOTIC) CAPSULE PO SCH ×3 (06:13→17:26)
[2019-01-19] MEDS: NS W/KCL 20 MEQ/L 1,000 ML IV SCH (06:13)
[2019-01-19 06:37] LABS: BASOPHILS % (AUTO) 1 % (0-10); EOSINOPHILS # (AUTO) 0.1 10^3/uL (0.0-0.3); EOSINOPHILS % (AUTO) 4 % (0-10); HEMATOCRIT 21 % (40-54); LYMPHOCYTES # (AUTO) 0.7 X 10^3 (1.0-4.0); LYMPHOCYTES % (AUTO) 21 % (12-44); MEAN CORPUSCULAR HGB CONC 34 G/DL (32-36); MEAN CORPUSCULAR VOLUME 88 FL (80-99); MONOCYTES # (AUTO) 0.1 X 10^3 (0.0-1.0); MONOCYTES % (AUTO) 3 % (0-12); NEUTROPHILS # (AUTO) 2.4 X 10^3 (1.8-7.8); NEUTROPHILS % (AUTO) 71 % (42-75); RED CELL DISTRIBUTION WIDTH 16.5 % (10.0-14.5); WHITE BLOOD COUNT 3.4 10^3/uL (4.3-11.0)
[2019-01-19 06:45] LABS: MEAN CORPUSCULAR HEMOGLOBIN 29 PG (25-34)
[2019-01-19 06:46] LABS: HEMOGLOBIN 6.9 G/DL (13.3-17.7); PLATELET COUNT 12 10^3/uL (130-400)
[2019-01-19 06:56] LABS: ALBUMIN 2.3 GM/DL (3.2-4.5); BILIRUBIN,TOTAL 0.8 MG/DL (0.1-1.0); CALCIUM 7.6 MG/DL (8.5-10.1); CREATININE SERUM 1.81 MG/DL (0.60-1.30); POTASSIUM 3.2 MMOL/L (3.6-5.0)
--- NOTE | 2019-01-19 07:02 | NUR ---
DR. MUSE NOTIFIED ABOUT PT'S PLATELET COUNT BEING 12, AND HEMOGLOBIN BEING 6.9. ORDERS RECEIVED FOR 1 UNIT OF PLATELETS, 1 UNIT OF PACKED RED BLOOD CELLS
--- NOTE | 2019-01-19 07:41 | NUR ---
SCR 1.81 BUMPED UP FROM 1.05, VANCOMYCIN LEVEL 26.4, PLACED VANCOMYCIN ON HOLD, AND ORDERED A REPEAT LEVEL TODAY (01/19) AT 1400 TO EVALUATE CLEARANCE.
[2019-01-19] MEDS: PIPERACILLIN/TAZOBACTAM (BULK) 4.5 GM in NS (IVPB) 100 ML IV SCH (08:26)
[2019-01-19] MEDS: ACYCLOVIR 400 MG TABLET (ZOVIRAX) PO SCH ×2 (08:44→19:58)
[2019-01-19] MEDS: VORICONAZOLE 200 MG TAB (VFEND) NON-FORMULARY PO SCH (08:44)
--- NOTE | 2019-01-19 12:49 | Pulmonary Progress Note ---
Subjective Time Seen by a Provider: 14:04 Subjective/Events-last exam Pt states he feels better c/w yesterday Sepsis Event Evaluation Height, Weight, BMI Height: 6'0.00" Weight: 213lbs. 5.0oz. 96.511892sb; 28.9 BMI Method:Stated Exam Exam Vital Signs Date Time Temp Pulse Resp B/P (MAP) Pulse Ox O2 Delivery O2 Flow Rate FiO2 01/19/19 09:00 High Flow N/C 5.00 01/19/19 08:33 92 High Flow N/C 5.00 01/19/19 06:25 99.3 68 24 90/56 (67) 95 High Flow N/C 5.00 01/19/19 04:06 98.8 01/19/19 02:04 99.0 01/19/19 01:19 101.5 01/19/19 00:23 99.5 01/18/19 22:10 90 NIV CPAP 5.00 01/18/19 21:00 High Flow N/C 4.00 01/18/19 19:43 98.4 01/18/19 17:31 97.2 100 20 111/63 (79) 94 High Flow N/C 4.00 01/18/19 16:00 97.3 01/18/19 15:38 94 High Flow N/C 4.00 I & O 01/19/19 07:00 Intake Total 1790 ml Output Total 775 ml Balance 1015 ml Height & Weight Height: 6'0.00" Weight: 213lbs. 5.0oz. 96.798047ck; 28.9 BMI Method:Stated General Appearance: No Apparent Distress HEENT: PERRL/EOMI, Normal ENT Inspection, Pharynx Normal Neck: Non Tender, Supple Respiratory: No Accessory Muscle Use, No Respiratory Distress Cardiovascular: Regular Rate, Rhythm, Tachycardia Gastrointestinal: non tender, soft Extremity: Non Tender, No Pedal Edema Neurologic/Psychiatric: Alert, Oriented x3 Skin: Normal Color, Warm/Dry Lymphatic: No Adenopathy Results Lab Laboratory Tests 01/18/19 06:20 01/19/19 06:20 Assessment/Plan Assessment/Plan SOB with pulmonary edema Aspergillus PNA -Voriconazole -Zosyn blood streaked sputum -resolved Hypokalemia -Replace Severe Anemia -S/p transfusions -Monitor -Oncology managing Pancytopenia/MDS -Oncology following -monitor poor prognosis LOREN CHRISTAIN DO Jan 19, 2019 12:49
--- NOTE | 2019-01-19 13:38 | Occupational Ther Daily Note ---
OT Current Status-Daily Note Subjective No pain reported. Appearance Pt. in bed. Agrees to work with OT. Family in room and leaves room for pt. to bathe. Mental Status/Objective Patient Orientation: Person, Place Therapy Code Descriptions/Definitions Functional [place] Measure: 0=Not Assessed/NA 4=Minimal Assistance 1=Total Assistance 5=Supervision or Setup 2=Maximal Assistance 6=Modified [place] 3=Moderate Assistance 7=Complete [place] Attachments: IV, Oxygen ADL-Treatment Therapy Code Descriptions/Definitions Functional [place] Measure: 0=Not Assessed/NA 4=Minimal Assistance 1=Total Assistance 5=Supervision or Setup 2=Maximal Assistance 6=Modified [place] 3=Moderate Assistance 7=Complete [place] Therapy Quality Codes: 6 Independent with activity with or without an assistive device 5 Patient requires set up or clean up by helper. Patient completes activity by themselves 4 Supervision or touching assist (CGA). [place] provide cues , steadying assist 3 The helper provides less than half the effort to complete the activity 2 The helper provides more than half the effort to complete the activity 1 Dependent. The helper does all the effort to complete an activity 7 Patient refused to complete or attempt activity 9 The patient did not perform the activity before the current illness or injury 88 Not attempted due to Medical conditions or safety concerns Bathing (FIM): 3 (Pt. able to bathe upper body. Stands with min assist and is able to wash teressa area somewhat. OT does this for him more thoroughly. Pt. is unable to reach feet. OT does this for him.) Shower/Bathe Self (QC): 3 Lower Body Dressing (FIM): 2 (Pt. unable to reach feet this date. OT did this for him.) Lower Body Dressing (QC): 2 On/Off Footwear (QC): 2 Transfers (B, C, W/C) (FIM): 4 (Min assist supine-sit and sit-stand. Pt. transfers to chair in room with min assist.) OT ordered pt. a protein shake as pt. states that he has not eaten today due to poor appetite. Pt. able to sit on side of bed during bath approximately 20- 25minutes unsupported. Transferred to chair after ADLs and all needs met. Education OT Patient Education: Correct positioning, Modified ADL techniques, Progress toward Goal/Update tx plan, Purpose of tx/functional activities, Reviewed precautions, Rehab process, Transfer techniques Teaching Recipient: Patient Teaching Methods: Demonstration, Discussion Response to Teaching: Verbalize Understanding, Return Demonstration OT Short Term Goals Short Term Goals 1=Demonstrate adherence to instructed precautions during ADL tasks. 2=Patient will verbalize/demonstrate understanding of assistive devices/modifications for ADL. 3=Patient will improve strength/tolerance for activity to enable patient to perform ADL's. OT [employer] Filling Machine Operator Goals Retirement Goals Time Frame: Feb 01, 2019 Eating (FIM): 6 Eating (QC): 6 Groomin Oral Hygiene (QC): 6 Bathing(FIM): 5 Shower/Bathe Self (QC): 5 Upper Body Dressing(FIM): 5 Upper Body Dressing (QC): 5 Lower Body Dressing(FIM): 5 Lower Body Dressing (QC): 5 On/Off Footwear (QC): 5 Toileting(FIM): 6 Toileting Hygiene (QC): 6 Transfers (B,C,W/C) (FIM): 6 Toilet/Commode Transfer(FIM): 6 Toilet/Commode Transfer (QC): 6 Shower Transfer(FIM): 5 Additional Goals: 1-Demonstrate ADL Tasks, 2-Verbalize Understanding, 3- ImproveStrength/Julia 1=Demonstrate adherence to instructed precautions during ADL tasks. 2=Patient will verbalize/demonstrate understanding of assistive devices/modifications for ADL. 3=Patient will improve strength/tolerance for activity to enable patient to perform ADL's. OT Education/Plan Problem List/Assessment Assessment: Decreased Activ Tolerance, Dependent Transfers, Impaired Bed Mobility, Impaired Funct Balance, Impaired I ADL's, Impaired Self-Care Skills Discharge Recommendations Plan/Recommendations: Continue POC Therapy D/C Recommendations: 24 hr Supervision, Home w/ Family Support Treatment Plan/Plan of Care Treatment,Training & Education: Yes Patient would benefit from OT for education, treatment and training to promote independence in ADL's, mobility, safety and/or upper extremity function for ADL's. Plan of Care: ADL Retraining, Caregiver Training, Functional Mobility, UE Funct Exercise/Act Treatment Duration: Feb 01, 2019 Frequency: 5 times per week Estimated Hrs Per Day: .5 hour per day Agreement: Yes Rehab Potential: Fair Time/GCodes Start Time: 11:00 Stop Time: 11:35 Total Time Billed (hr/min): 35 Billed Treatment Time 1, ADL x 2 MARY ZHAO OT Jan 19, 2019 13:38
[2019-01-19] MEDS ORDERED: ANIDULAFUNGIN INJECTION 100 MG in NS (IVPB) 100 ML IV SCH (13:52)
[2019-01-19] MEDS ORDERED: TROUGH ORDER-PHARMACY XX ONE (14:00)
[2019-01-19] MEDS ORDERED: NS IV 500 ML 500 ML ONE (14:00)
--- NOTE | 2019-01-19 14:01 | Oncology Progress Note ---
Subjective Date Seen by a Provider: Jan 19, 2019 Time Seen by a Provider: 13:54 Subjective/Events-last exam Yony fever last night 101.5 Culture and sensitivity back today showed: Asperigillus niger, NOT sensitive to Voriconazole. But sensitive to Anidulfungin Plt drop to 10, Hb drop to 6.9 today. SOB with minimal exertion. Data Review Labs Laboratory Tests 01/19/19 06:20 Laboratory Tests 01/17/19 06:30: White Blood Count 3.1L, Red Blood Count 2.63L, Hemoglobin 7.8L, Hematocrit 23L, Red Cell Distribution Width 16.7H, Platelet Count 29*L, Mean Platelet Volume 10.5H, Potassium Level 3.1L, Chloride Level 109H, Carbon Dioxide Level 18L, Calcium Level 8.3L, Total Bilirubin 1.3H, Total Protein 5.9L, Albumin 2.8L 01/17/19 11:27: 01/18/19 06:20: White Blood Count 4.2L, Red Blood Count 2.80L, Hemoglobin 8.3L, Hematocrit 25L, Red Cell Distribution Width 16.4H, Platelet Count 15*L, Potassium Level 3.5L, Carbon Dioxide Level 18L, Calcium Level 8.2L, Total Bilirubin 1.1H, Total Protein 5.6L, Albumin 2.6L, Sodium Level 134L 01/19/19 02:55: Vancomycin Level Trough 26.4*H 01/19/19 06:20: White Blood Count 3.4L, Red Blood Count 2.34L, Hemoglobin 6.9*L, Hematocrit 21L, Red Cell Distribution Width 16.5H, Platelet Count 12*L, Lymphocytes # (Auto) 0.7L, Sodium Level 132L, Potassium Level 3.2L, Carbon Dioxide Level 16L, Blood Urea Nitrogen 24H, Creatinine 1.81H, Glucose Level 118H, Calcium Level 7.6L, Total Protein 5.0L, Albumin 2.3L Physical Exam Vital Signs Vital Signs - First Documented 01/13/19 01/13/19 01/13/19 01/13/19 01/13/19 00:30 02:01 02:30 06:07 07:19 Temp 102.7 Pulse 95 Resp 18 B/P (MAP) 159/90 (113) Pulse Ox 97 O2 Delivery NIV Bilevel O2 Flow Rate 35.00 FiO2 45 Capillary Refill : Height, Weight, BMI Height: 6'0.00" Weight: 213lbs. 5.0oz. 96.185765uy; 28.9 BMI Method:Stated General Appearance: No Apparent Distress HEENT: PERRL/EOMI Neck: Non Tender, Supple Respiratory: No Accessory Muscle Use, No Respiratory Distress, Other (tachypenia) Cardiovascular: Regular Rate, Rhythm, Tachycardia Gastrointestinal: Non Tender, Soft Extremity: Non Tender, No Calf Tenderness, No Pedal Edema Neurologic/Psychiatric: Alert, Oriented x3 Impression & Plan Impression & Plan 1. Fever, Aspergillus pneumonia and neutropenia. Sputum grew large amount of Aspergillus niger. Pt had one day IV Anidulfungin, and then Vorioconazole day 4, ( 3 days of PO at 200mg bid and one day 400mg bid), Zosyn day 11, and Acyclovir day 9 (5 day IV and 5 day PO) and Vanco day 3. He was put back on Vanco 01/17/19 due to re-spike fever again 102. I will change Voriconazole back to Anidulfungin IV starting today 100mg and then 100mg tomorrow morning then daily. 2. 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 Thrombocytopenia did not respond to steroid treatment. Will evaluate this issue after we get the Aspergillus pneumonia under control. WBC and HB better today. Closely monitoring Plt for now. 3. Mod-severe aortic stenosis, ? candidate for surgical repair/correction. Pt had cardiac and thoracic surgery evaluation 12/28/18. He will have more tests including JANETT on 01/19/19 to decide if he does have a critical stenosis and would be benefit from the surgical repair. Because of this, he has been chronic fatigue and was on wheel chair/walker since 10/2018. 4. h/o RLL non-small cell lung cancer, s/p surgical resection and chemotherapy cisplatin and gemcitabine 2012. Most recent CT scan of chest and abdomen 11/26/2018 showed NO recurrence of disease. 5. Tachycardia from the infection and hypoxia. monitoring. 6. 80 pack year of smoking, stopped 2012 when he as diagnosed with lung cancer 7. h/o CAD but recent cardiac cath 10/2018 did not show any blockage or active lesion. 8. Prognosis poor. 9. Probiotics while on antibiotics. 10. Anticipate to stay in the hospital for 2-3 weeks. 11. Physical therapy. 12. Acute renal insufficiency from Vanco. Vanco trough level too high. Will stop Vanco for now. Clinical Quality Measures DVT/VTE Risk/Contraindication: Risk Factor Score Per Nursin MAREN MUSE MD Jan 19, 2019 14:01
--- NOTE | 2019-01-19 14:49 | Physical Therapy Daily Note ---
PT Daily Note-Current Subjective Pt. up in recliner, agrees to Rx, stats he is so SOA and will do all he can. Pain Location: No Pain Reported Appearance dyspnea at 4, has to stop activity to get his breath Mental Status Patient Orientation: Normal For Age Attachments: Oxygen, IV Transfers Therapy Code Descriptions/Definitions Functional [place] Measure: 0=Not Assessed/NA 4=Minimal Assistance 1=Total Assistance 5=Supervision or Setup 2=Maximal Assistance 6=Modified [place] 3=Moderate Assistance 7=Complete [place] Therapy Quality Codes: 6 Independent with activity with or without an assistive device 5 Patient requires set up or clean up by helper. Patient completes activity by themselves 4 Supervision or touching assist (CGA). [place] provide cues , steadying assist 3 The helper provides less than half the effort to complete the activity 2 The helper provides more than half the effort to complete the activity 1 Dependent. The helper does all the effort to complete an activity 7 Patient refused to complete or attempt activity 9 The patient did not perform the activity before the current illness or injury 88 Not attempted due to Medical conditions or safety concerns sit to stand min assist, 6 trials Weight Bearing Right Lower Extremity: Right Weight Bearing/Tolerated Left Lower Extremity: Left Weight Bearing/Tolerated Gait Training Gait Assistive Device: FWW took 3-4 steps forward and back x 4 with much dyspnea and needed to sit for rest Exercises Supine Ex: Ankle pumps, Quad Set, Glut sets, Heel Slides, Scooting, Straight leg raise, Hip abd/add Supine Reps: 10 Seated Therapy Exercises: Ankle pumps, Sit to stand, Long arc quads, Hip flex ion Seated Reps: 10 Standing: Marching, Weight shifts Standing Reps: 10 Assessment Current Status: Fair Progress SOA and required rests PT Fpc Goals Coater Brake Linings Goals PT Coater Brake Linings Goals Time Frame: Feb 12, 2019 Transfers (B,C,W/C) (FIM): 5 Gait (FIM): 1 Gait distance (FIM): 1=up to 49 ft Distance: 45' Gait Level of Assist: 5 Gait Assistive Device: FWW PT Plan Treatment/Plan Treatment Plan: Continue Plan of Care Treatment Plan: Bed Mobility, Education, Functional Activity Julia, Functional Strength, Gait, Safety, Therapeutic Exercise, Transfers Treatment Duration: Feb 12, 2019 Frequency: 6 times per week Estimated Hrs Per Day: .25 hour per day Patient and/or Family Agrees t: Yes Safety Risks/Education Patient Education: Gait Training, Transfer Techniques, Correct Positioning, Disease Process, Safety Issues Teaching Recipient: Patient Teaching Methods: Demonstration, Discussion Response to Teaching: Verbalize Understanding, Return Demonstration, Reinforcement Needed Time/GCodes Time In: 1345 Time Out: 1410 Total Billed Treatment Time: 25 Total Billed Treatment 1,FA15m,EX10m G Codes Necessary: RAYMOND [place] SUPERVISING BAILIFF Jan 19, 2019 14:49
--- NOTE | 2019-01-19 16:51 | NUR ---
PT TEMP IS 101.[address] MUSE CONTACTED AND INFORMED OF TEMP. BLOOD BANK CONTACTED AND INFORMED WELL. TRANSFUSION REACTION WORKUP WILL BE DONE.
[2019-01-19] MEDS ORDERED: VANCOMYCIN 1250 MG/NS 250 ML IVPB IV SCH ×2 (18:30)
[2019-01-19] MEDS: TEMAZEPAM 15 MG (RESTORIL) CAP PO PRN (20:02)
[2019-01-20] MEDS: PIPERACILLIN/TAZOBACTAM (BULK) 4.5 GM in NS (IVPB) 100 ML IV SCH ×4 (00:10→23:12)
[2019-01-20] MEDS: RT-ALBUTEROL/IPRATROPIUM 3 ML (DUONEB) VIAL INH SCH ×4 (03:11→20:50)
[2019-01-20 06:02] VITALS: BP 107/75
[2019-01-20] MEDS: OMEPRAZOLE 20 MG (PriLOSEC) CAP NON-FORMULARY PO SCH ×2 (06:30→15:54)
[2019-01-20] MEDS: LACTOBACILLUS ACIDOPHILUS (PROBIOTIC) CAPSULE PO SCH ×3 (06:30→16:57)
[2019-01-20 06:46] LABS: BASOPHILS % (AUTO) 1 % (0-10); EOSINOPHILS # (AUTO) 0.1 10^3/uL (0.0-0.3); EOSINOPHILS % (AUTO) 3 % (0-10); HEMATOCRIT 24 % (40-54); LYMPHOCYTES # (AUTO) 1.1 X 10^3 (1.0-4.0); LYMPHOCYTES % (AUTO) 25 % (12-44); MEAN CORPUSCULAR HEMOGLOBIN 30 PG (25-34); MEAN CORPUSCULAR HGB CONC 34 G/DL (32-36); MEAN CORPUSCULAR VOLUME 87 FL (80-99); MEAN PLATELET VOLUME 10.1 FL (7.4-10.4); MONOCYTES # (AUTO) 0.2 X 10^3 (0.0-1.0); MONOCYTES % (AUTO) 4 % (0-12); NEUTROPHILS # (AUTO) 2.9 X 10^3 (1.8-7.8); NEUTROPHILS % (AUTO) 68 % (42-75); WHITE BLOOD COUNT 4.3 10^3/uL (4.3-11.0)
[2019-01-20 06:47] LABS: PLATELET COUNT 26 10^3/uL (130-400)
--- NOTE | 2019-01-20 06:48 | NUR ---
CRITICAL PLATELET COUNT OF 26 CALLED TO THIS RN. PLATELET COUNT TRENDING UPWARD, NO PHYSICIAN CONTACTED AT THIS TIME.
[2019-01-20 07:12] LABS: ALBUMIN 2.4 GM/DL (3.2-4.5); BILIRUBIN,TOTAL 0.9 MG/DL (0.1-1.0); CALCIUM 7.9 MG/DL (8.5-10.1); CREATININE SERUM 1.68 MG/DL (0.60-1.30); POTASSIUM 3.2 MMOL/L (3.6-5.0); TOTAL PROTEIN 5.1 GM/DL (6.4-8.2)
[2019-01-20] MEDS: ACYCLOVIR 400 MG TABLET (ZOVIRAX) PO SCH ×2 (08:58→21:04)
--- NOTE | 2019-01-20 09:31 | Occupational Ther Daily Note ---
OT Current Status-Daily Note Subjective Pt alert, lying in bed. Pt agrees to therapy. States that he is feeling better today. Physician in room, turned O2 down from 5 to 4, reported to nrsg. Mental Status/Objective Patient Orientation: Person, Place, Time, Situation Therapy Code Descriptions/Definitions Functional [place] Measure: 0=Not Assessed/NA 4=Minimal Assistance 1=Total Assistance 5=Supervision or Setup 2=Maximal Assistance 6=Modified [place] 3=Moderate Assistance 7=Complete [place] Attachments: IV (port), Oxygen ADL-Treatment Pt agrees to sponge bath. Mod A for supine to EOB then was able to sit EOB independently. SOA noted throughout session and encourage frequent breaks. Pt able to complete sponge bath EOB without washing lower legs. Pt stood with min A to cleanse teressa area and began to urinate then requested BSC for BM. Assist to don hospital gown and to cleanse self after toileting. After therapy, PT took over care. All needs met in room. Therapy Code Descriptions/Definitions Functional [place] Measure: 0=Not Assessed/NA 4=Minimal Assistance 1=Total Assistance 5=Supervision or Setup 2=Maximal Assistance 6=Modified [place] 3=Moderate Assistance 7=Complete [place] Therapy Quality Codes: 6 Independent with activity with or without an assistive device 5 Patient requires set up or clean up by helper. Patient completes activity by themselves 4 Supervision or touching assist (CGA). [place] provide cues , steadying assist 3 The helper provides less than half the effort to complete the activity 2 The helper provides more than half the effort to complete the activity 1 Dependent. The helper does all the effort to complete an activity 7 Patient refused to complete or attempt activity 9 The patient did not perform the activity before the current illness or injury 88 Not attempted due to Medical conditions or safety concerns Bathing (FIM): 3 Shower/Bathe Self (QC): 3 Toileting (FIM): 2 Toileting Hygiene (QC): 2 Transfers (B, C, W/C) (FIM): 4 Toilet/Commode Transfer (FIM): 4 Toilet Transfer (QC): 3 OT Short Term Goals Short Term Goals 1=Demonstrate adherence to instructed precautions during ADL tasks. 2=Patient will verbalize/demonstrate understanding of assistive devices/modifications for ADL. 3=Patient will improve strength/tolerance for activity to enable patient to perform ADL's. OT Laundry Route Driver Goals Senior Living Goals Time Frame: Feb 01, 2019 Eating (FIM): 6 Eating (QC): 6 Groomin Oral Hygiene (QC): 6 Bathing(FIM): 5 Shower/Bathe Self (QC): 5 Upper Body Dressing(FIM): 5 Upper Body Dressing (QC): 5 Lower Body Dressing(FIM): 5 Lower Body Dressing (QC): 5 On/Off Footwear (QC): 5 Toileting(FIM): 6 Toileting Hygiene (QC): 6 Transfers (B,C,W/C) (FIM): 6 Toilet/Commode Transfer(FIM): 6 Toilet/Commode Transfer (QC): 6 Shower Transfer(FIM): 5 Additional Goals: 1-Demonstrate ADL Tasks, 2-Verbalize Understanding, 3- ImproveStrength/Julia 1=Demonstrate adherence to instructed precautions during ADL tasks. 2=Patient will verbalize/demonstrate understanding of assistive devices/modifications for ADL. 3=Patient will improve strength/tolerance for activity to enable patient to perform ADL's. OT Education/Plan Problem List/Assessment Assessment: Decreased Activ Tolerance, Decreased UE Strength, Impaired Funct Balance, Impaired Self-Care Skills Discharge Recommendations Plan/Recommendations: Continue POC Treatment Plan/Plan of Care Patient would benefit from OT for education, treatment and training to promote independence in ADL's, mobility, safety and/or upper extremity function for ADL's. Plan of Care: ADL Retraining, Caregiver Training, Functional Mobility, UE Funct Exercise/Act Treatment Duration: Feb 01, 2019 Frequency: 5 times per week Estimated Hrs Per Day: .5 hour per day Agreement: Yes Rehab Potential: Fair Time/GCodes Start Time: 09:30 Stop Time: 09:55 Total Time Billed (hr/min): 25 Billed Treatment Time 1 visit-ADL 2 (25 min) ERIKA LAI Jan 20, 2019 09:31
--- NOTE | 2019-01-20 10:19 | Oncology Progress Note ---
Subjective Date Seen by a Provider: Jan 20, 2019 Time Seen by a Provider: 10:09 Subjective/Events-last exam Anidulafungin re-started at 1300 and was actually given at 4pm yesterday. No fever since midnight. Pt is feeling better today. O2 Sat 93% at 4L NC Still tachypenic and tachycardia. Two bowel movement yesterday, soft. Vanco was stopped yesterday. Renal function is slowly improving. Hb and Plt are better today Data Review Labs Laboratory Tests 01/19/19 18:42 01/20/19 06:33 Laboratory Tests 01/17/19 11:27: 01/18/19 06:20: White Blood Count 4.2L, Red Blood Count 2.80L, Hemoglobin 8.3L, Hematocrit 25L, Red Cell Distribution Width 16.4H, Platelet Count 15*L, Sodium Level 134L, Potassium Level 3.5L, Carbon Dioxide Level 18L, Calcium Level 8.2L, Total Bilirubin 1.1H, Total Protein 5.6L, Albumin 2.6L 01/19/19 02:55: Vancomycin Level Trough 26.4*H 01/19/19 06:20: White Blood Count 3.4L, Red Blood Count 2.34L, Hemoglobin 6.9*L, Hematocrit 21L, Red Cell Distribution Width 16.5H, Platelet Count 12*L, Sodium Level 132L, Potassium Level 3.2L, Carbon Dioxide Level 16L, Calcium Level 7.6L, Total Protein 5.0L, Albumin 2.3L, Lymphocytes # (Auto) 0.7L, Blood Urea Nitrogen 24H, Creatinine 1.81H, Glucose Level 118H 01/19/19 17:15: 01/19/19 18:42: 01/20/19 06:33: Red Blood Count 2.71L, Hemoglobin 8.0L, Hematocrit 24L, Red Cell Distribution Width 16.0H, Platelet Count 26*L, Potassium Level 3.2L, Chloride Level 108H, Carbon Dioxide Level 18L, Blood Urea Nitrogen 21H, Creatinine 1.68H, Calcium Level 7.9L, Total Protein 5.1L, Albumin 2.4L Physical Exam Vital Signs Vital Signs - First Documented 01/14/19 01/14/19 01/14/19 01/14/19 00:15 01:26 06:00 06:45 Temp 98.6 Pulse 101 Resp 20 B/P (MAP) 111/78 (89) Pulse Ox 81 O2 Delivery Room Air O2 Flow Rate 6.00 FiO2 40 Capillary Refill : Height, Weight, BMI Height: 6'0.00" Weight: 213lbs. 5.0oz. 96.071815mx; 28.9 BMI Method:Stated General Appearance: No Apparent Distress Neck: Non Tender, Supple Respiratory: Other (breathing somewhat fast) Cardiovascular: Regular Rate, Rhythm, No JVD, Tachycardia Gastrointestinal: Non Tender, Soft Extremity: Non Tender, No Calf Tenderness, No Pedal Edema Neurologic/Psychiatric: Alert, Oriented x3 Skin: Warm/Dry Impression & Plan Impression & Plan 1. Fever, Aspergillus pneumonia and neutropenia. Sputum grew large amount of Asp ergillus niger. Culture and sensitivity showed sensitive to Anidulafungin. Pt had one day IV Anidulfungin, and then switched to Vorioconazole day 4 (before the sensitivity back), ( 3 days of PO at 200mg bid and one day 400mg bid), Zosyn day 12, and Acyclovir day 10 (5 day IV and 6 day PO) and Vanco day 3. He was put back on Vanco 01/17/19 due to re-spike fever again 102 and stopped yesterday due to renal function. Stop Vanco. Continue Anidulafungin 100mg daily for at least 2 weeks. If no fever for next 48 hrs, then stop Zosyn. 2. 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 Thrombocytopenia did not respond to steroid treatment. Will evaluate this issue after we get the Aspergillus pneumonia under control. Plt, WBC and HB better today. Closely monitoring Plt for now. 3. Mod-severe aortic stenosis, ? candidate for surgical repair/correction. Pt had cardiac and thoracic surgery evaluation 12/28/18. He will have more tests including JANETT on 01/19/19 to decide if he does have a critical stenosis and would be benefit from the surgical repair. Because of this, he has been chronic fatigue and was on wheel chair/walker since 10/2018. 4. h/o RLL non-small cell lung cancer, s/p surgical resection and chemotherapy cisplatin and gemcitabine 2012. Most recent CT scan of chest and abdomen 11/26/2018 showed NO recurrence of disease. 5. Tachycardia from the infection and hypoxia. monitoring. 6. 80 pack year of smoking, stopped 2012 when he as diagnosed with lung cancer 7. h/o CAD but recent cardiac cath 10/2018 did not show any blockage or active lesion. 8. Prognosis poor. 9. Probiotics while on antibiotics. 10. Anticipate to stay in the hospital for 2-3 weeks. 11. Physical therapy. 12. Acute renal insufficiency from Vanco. Improving. 13. Physical therapy. Clinical Quality Measures DVT/VTE Risk/Contraindication: Risk Factor Score Per Nursin MAREN MUSE MD Jan 20, 2019 10:19
--- NOTE | 2019-01-20 10:37 | Physical Therapy Daily Note ---
PT Daily Note-Current Subjective Patient on commode pre tx with OT, agrees to PT, PT will take over from here, has no complaints of pain. Patient needs assist with wiping after standing and needs gown changed. Appearance Patient in recliner post tx with nurse call, phone, tray, all needs met. Mental Status Patient Orientation: Person, Confused, Place Attachments: Oxygen 4L of O2 nasal canula Transfers Therapy Code Descriptions/Definitions Functional [place] Measure: 0=Not Assessed/NA 4=Minimal Assistance 1=Total Assistance 5=Supervision or Setup 2=Maximal Assistance 6=Modified [place] 3=Moderate Assistance 7=Complete [place] Therapy Quality Codes: 6 Independent with activity with or without an assistive device 5 Patient requires set up or clean up by helper. Patient completes activity by themselves 4 Supervision or touching assist (CGA). [place] provide cues , steadying assist 3 The helper provides less than half the effort to complete the activity 2 The helper provides more than half the effort to complete the activity 1 Dependent. The helper does all the effort to complete an activity 7 Patient refused to complete or attempt activity 9 The patient did not perform the activity before the current illness or injury 88 Not attempted due to Medical conditions or safety concerns Transfers (B, C, W/C) (FIM): 4 Sit to/from Stand: 4 Bed to/from Chair: 4 Min assist for sit to stand, CGA for transfer. Cues for hand placement when standing. Patient SOB with very little activity. Cues during the whole treatment for purse lip breathing. Weight Bearing Right Lower Extremity: Right Weight Bearing/Tolerated Left Lower Extremity: Left Weight Bearing/Tolerated Gait Training Gait (FIM): 1 Distance: 5' Gait Level of Assist: 4 Gait Persons Needed: 1 Gait Assistive Device: FWW CGA, very SOB Exercises Seated Therapy Exercises: Ankle pumps, Long arc quads, Hip flexion Seated Reps: 20 Treatments ambulation, transfers, LE exercise Assessment Current Status: Poor Progress Patient extremely SOB with any activity. PT Longterm Goals Banana Handler Goals PT Banana Handler Goals Time Frame: Feb 12, 2019 Transfers (B,C,W/C) (FIM): 5 Sit to Lying (QC): 5 Lying-Sitting on Side/Bed(QC): 5 Sit to Stand (QC): 5 Rollin Roll Left to Right (QC): 5 Chair/[id number] Xfer(QC): 5 Car Transfer (QC): 5 Does the Patient Walk: No and Walking Goal IS indicated Gait (FIM): 1 Gait distance (FIM): 1=up to 49 ft Distance: 45' Walk 10 feet (QC): 5 Walk 10ft-Uneven Surface(QC): 5 Walk 50ft with 2 Turns (QC): 88 Walk 150 ft (QC): 88 Gait Level of Assist: 5 Gait Assistive Device: FWW PT Plan Problem List Problem List: Activity Tolerance, Functional Strength, Safety, Balance, Gait, Transfer, Bed Mobility, ROM Treatment/Plan Treatment Plan: Continue Plan of Care Treatment Plan: Bed Mobility, Education, Functional Activity Julia, Functional Strength, Gait, Safety, Therapeutic Exercise, Transfers Treatment Duration: Feb 12, 2019 Frequency: 6 times per week Estimated Hrs Per Day: .25 hour per day Patient and/or Family Agrees t: Yes Safety Risks/Education Patient Education: Gait Training, Transfer Techniques, Correct Positioning, Safety Issues Teaching Recipient: Patient Teaching Methods: Demonstration, Discussion Response to Teaching: Reinforcement Needed Time/GCodes Time In: 0955 Time Out: 1010 Total Billed Treatment Time: 15 Total Billed Treatment 1 visit FA 15' ODNY LOZOYA PT Jan 20, 2019 10:37
[2019-01-20] MEDS: ANIDULAFUNGIN INJECTION 100 MG in NS (IVPB) 100 ML IV SCH (13:25)
[2019-01-20 18:04] VITALS: BP 116/62
[2019-01-20] MEDS: TEMAZEPAM 15 MG (RESTORIL) CAP PO PRN (21:04)
[2019-01-21] MEDS: RT-ALBUTEROL/IPRATROPIUM 3 ML (DUONEB) VIAL INH SCH ×4 (02:01→20:55)
[2019-01-21] MEDS: NS W/KCL 20 MEQ/L 1,000 ML IV SCH ×2 (02:30→19:33)
[2019-01-21 05:39] LABS: BASOPHILS % (AUTO) 0 % (0-10); EOSINOPHILS # (AUTO) 0.1 10^3/uL (0.0-0.3); EOSINOPHILS % (AUTO) 2 % (0-10); HEMATOCRIT 22 % (40-54); HEMOGLOBIN 7.4 G/DL (13.3-17.7); LYMPHOCYTES % (AUTO) 25 % (12-44); MEAN CORPUSCULAR HEMOGLOBIN 29 PG (25-34); MEAN CORPUSCULAR HGB CONC 33 G/DL (32-36); MEAN CORPUSCULAR VOLUME 88 FL (80-99); MEAN PLATELET VOLUME 10.6 FL (7.4-10.4); MONOCYTES # (AUTO) 0.1 X 10^3 (0.0-1.0); MONOCYTES % (AUTO) 3 % (0-12); NEUTROPHILS # (AUTO) 2.8 X 10^3 (1.8-7.8); NEUTROPHILS % (AUTO) 70 % (42-75); RED CELL DISTRIBUTION WIDTH 16.1 % (10.0-14.5); WHITE BLOOD COUNT 3.9 10^3/uL (4.3-11.0)
[2019-01-21 05:46] LABS: PLATELET COUNT 21 10^3/uL (130-400)
[2019-01-21 05:59] LABS: ALBUMIN 2.3 GM/DL (3.2-4.5); BILIRUBIN,TOTAL 0.8 MG/DL (0.1-1.0); CALCIUM 7.7 MG/DL (8.5-10.1); CREATININE SERUM 1.49 MG/DL (0.60-1.30); POTASSIUM 3.3 MMOL/L (3.6-5.0)
[2019-01-21 06:24] VITALS: BP 112/70
[2019-01-21] MEDS: LACTOBACILLUS ACIDOPHILUS (PROBIOTIC) CAPSULE PO SCH ×3 (06:45→18:06)
[2019-01-21] MEDS: OMEPRAZOLE 20 MG (PriLOSEC) CAP NON-FORMULARY PO SCH ×2 (06:45→18:05)
[2019-01-21] MEDS: ACYCLOVIR 400 MG TABLET (ZOVIRAX) PO SCH ×2 (08:31→19:49)
--- NOTE | 2019-01-21 11:50 | Occupational Ther Daily Note ---
OT Current Status-Daily Note Subjective Pt alert, lying in bed. Visitor present in room. Pt stated that he does not feel very good today and just wanted to stay in bed. Agrees to therapy. Mental Status/Objective Patient Orientation: Person, Place, Time, Situation Therapy Code Descriptions/Definitions Functional [place] Measure: 0=Not Assessed/NA 4=Minimal Assistance 1=Total Assistance 5=Supervision or Setup 2=Maximal Assistance 6=Modified [place] 3=Moderate Assistance 7=Complete [place] ADL-Treatment Therapy Code Descriptions/Definitions Functional [place] Measure: 0=Not Assessed/NA 4=Minimal Assistance 1=Total Assistance 5=Supervision or Setup 2=Maximal Assistance 6=Modified [place] 3=Moderate Assistance 7=Complete [place] Therapy Quality Codes: 6 Independent with activity with or without an assistive device 5 Patient requires set up or clean up by helper. Patient completes activity by themselves 4 Supervision or touching assist (CGA). [place] provide cues , steadying assist 3 The helper provides less than half the effort to complete the activity 2 The helper provides more than half the effort to complete the activity 1 Dependent. The helper does all the effort to complete an activity 7 Patient refused to complete or attempt activity 9 The patient did not perform the activity before the current illness or injury 88 Not attempted due to Medical conditions or safety concerns Other Treatment Pt completed UE exercises against gravity 2 sets 5 reps with multiple recovery breaks due to decreased activity tolerance. UE exercises completed to increase strength for daily functional tasks. PT took over care of pt. All needs met in room. OT Short Term Goals Short Term Goals 1=Demonstrate adherence to instructed precautions during ADL tasks. 2=Patient will verbalize/demonstrate understanding of assistive devices/modifications for ADL. 3=Patient will improve strength/tolerance for activity to enable patient to perform ADL's. OT Creative Consultant Goals Creative Consultant Goals Time Frame: Feb 01, 2019 Eating (FIM): 6 Eating (QC): 6 Groomin Oral Hygiene (QC): 6 Bathing(FIM): 5 Shower/Bathe Self (QC): 5 Upper Body Dressing(FIM): 5 Upper Body Dressing (QC): 5 Lower Body Dressing(FIM): 5 Lower Body Dressing (QC): 5 On/Off Footwear (QC): 5 Toileting(FIM): 6 Toileting Hygiene (QC): 6 Transfers (B,C,W/C) (FIM): 6 Toilet/Commode Transfer(FIM): 6 Toilet/Commode Transfer (QC): 6 Shower Transfer(FIM): 5 Additional Goals: 1-Demonstrate ADL Tasks, 2-Verbalize Understanding, 3-Impr oveStrength/Julia 1=Demonstrate adherence to instructed precautions during ADL tasks. 2=Patient will verbalize/demonstrate understanding of assistive devices/modifications for ADL. 3=Patient will improve strength/tolerance for activity to enable patient to perform ADL's. OT Education/Plan Problem List/Assessment Assessment: Decreased Safety Aware, Decreased UE Strength, Restricted Funct UE ROM Discharge Recommendations Plan/Recommendations: Continue POC Treatment Plan/Plan of Care Patient would benefit from OT for education, treatment and training to promote independence in ADL's, mobility, safety and/or upper extremity function for ADL's. Plan of Care: ADL Retraining, Caregiver Training, Functional Mobility, UE Funct Exercise/Act Treatment Duration: Feb 01, 2019 Frequency: 5 times per week Estimated Hrs Per Day: .5 hour per day Agreement: Yes Rehab Potential: Fair Time/GCodes Start Time: 11:20 Stop Time: 11:35 Total Time Billed (hr/min): 1135 Billed Treatment Time 1 visit-EX 1 (15 min) ERIKA LAI Jan 21, 2019 11:50
--- NOTE | 2019-01-21 11:51 | Physical Therapy Daily Note ---
PT Daily Note-Current Subjective Patient in bed pre tx, agrees to PT, just had OT, SOB just laying in bed, agrees to bed exercises. Appearance Patient in bed post tx with nurse call, phone, tray, all needs met, family in the room. Mental Status Patient Orientation: Person, Place, Situation Attachments: Oxygen, IV Transfers Therapy Code Descriptions/Definitions Functional [place] Measure: 0=Not Assessed/NA 4=Minimal Assistance 1=Total Assistance 5=Supervision or Setup 2=Maximal Assistance 6=Modified [place] 3=Moderate Assistance 7=Complete [place] Therapy Quality Codes: 6 Independent with activity with or without an assistive device 5 Patient requires set up or clean up by helper. Patient completes activity by themselves 4 Supervision or touching assist (CGA). [place] provide cues , steadying assist 3 The helper provides less than half the effort to complete the activity 2 The helper provides more than half the effort to complete the activity 1 Dependent. The helper does all the effort to complete an activity 7 Patient refused to complete or attempt activity 9 The patient did not perform the activity before the current illness or injury 88 Not attempted due to Medical conditions or safety concerns Weight Bearing Right Lower Extremity: Right Weight Bearing/Tolerated Left Lower Extremity: Left Weight Bearing/Tolerated Exercises Supine Ex: Ankle pumps, Quad Set, Glut sets, Heel Slides, Short Arc Quads, Straight leg raise, Hip abd/add Supine Reps: 15 Treatments LE exercise Assessment Current Status: Poor Progress SOB with activity PT Alf Goals Alf Goals PT Alf Goals Time Frame: Feb 12, 2019 Transfers (B,C,W/C) (FIM): 5 Sit to Lying (QC): 5 Lying-Sitting on Side/Bed(QC): 5 Sit to Stand (QC): 5 Rollin Roll Left to Right (QC): 5 Chair/Rth-fu-[place] Xfer(QC): 5 Car Transfer (QC): 5 Does the Patient Walk: No and Walking Goal IS indicated Gait (FIM): 1 Gait distance (FIM): 1=up to 49 ft Distance: 45' Walk 10 feet (QC): 5 Walk 10ft-Uneven Surface(QC): 5 Walk 50ft with 2 Turns (QC): 88 Walk 150 ft (QC): 88 Gait Level of Assist: 5 Gait Assistive Device: FWW PT Plan Problem List Problem List: Activity Tolerance, Functional Strength, Safety, Balance, Gait, Transfer, Bed Mobility, ROM Treatment/Plan Treatment Plan: Continue Plan of Care Treatment Plan: Bed Mobility, Education, Functional Activity Julia, Functional Strength, Gait, Safety, Therapeutic Exercise, Transfers Treatment Duration: Feb 12, 2019 Frequency: 6 times per week Estimated Hrs Per Day: .25 hour per day Patient and/or Family Agrees t: Yes Safety Risks/Education Patient Education: Correct Positioning, Safety Issues Teaching Recipient: Patient Teaching Methods: Demonstration, Discussion Response to Teaching: Reinforcement Needed Time/GCodes Time In: 1135 Time Out: 1147 Total Billed Treatment Time: 12 Total Billed Treatment 1 visit EX 12' DONY LOZOYA PT Jan 21, 2019 11:51
[2019-01-21] MEDS: ANIDULAFUNGIN INJECTION 100 MG in NS (IVPB) 100 ML IV SCH (12:59)
[2019-01-21] MEDS ORDERED: FUROSEMIDE 40 MG/4 ML INJ (LASIX) IVP NR (17:45)
--- NOTE | 2019-01-21 17:49 | Progress Note-Standard ---
Standard Progress Note Progress Notes/Assess & Plan Date Seen by a Provider: Jan 21, 2019 Time Seen by a Provider: 17:44 Progress/Assessment & Plan Mr. Yost is a 73 yo male with transfusion dependent MDS RAEB II who was admitted on 01/08/19 with acute hypoxic respiratory failures secondary to A spergillus pneumonia. He had just been discharged 24 hours earlier after an admission for severe sepsis that had responded to broad spectrum antibiotics. 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 He was given one day of anidulafungin and then switched to voriconazole. Last dose of vancomycin was on 01/13. He had recurrence of fever twice on 01/14/19 but then no fever until 01/17. He was restarted on vancomycin and then zosyn on 01/18. On 01/19, sensitivities returned with resistance to voriconazole and sensitivity to echinocandins, so anidulafungin was restarted. Patient also was noted to have acute renal dysfunction presumedly secondary to high trough vancomycin, so vanc was stopped on 01/19. Anidulafungin was started at 1600 on 01/19, and patient has been afebrile since 1800 on 01/19. Patient had improving respiratory function yesterday and was on a stable 4L of supplemental O2 by VT. This morning, shortness of breath began to worsen and now he is 6L of O2. He feels weaker and PT/OT helped him with bed-only exercises. His appetite continues to be poor but he ate some macaroni and cheese. He had loose stools once this morning. No episodes of bleeding today. Patient has regular tachycardia, diffusely diminished breath sounds, and 2+ pedal edema. Laboratory Tests 01/21/19 05:15: White Blood Count 3.9L, Red Blood Count 2.55L, Hemoglobin 7.4L, Hematocrit 22L, Mean Corpuscular Volume 88, Mean Corpuscular Hemoglobin 29, Mean Corpuscular Hemoglobin Concent 33, Red Cell Distribution Width 16.1H, Platelet Count 21*L, Mean Platelet Volume 10.6H, Neutrophils (%) (Auto) 70, Lymphocytes (%) (Auto) 25, Monocytes (%) (Auto) 3, Eosinophils (%) (Auto) 2, Basophils (%) (Auto) 0, N eutrophils # (Auto) 2.8, Lymphocytes # (Auto) 1.0, Monocytes # (Auto) 0.1, Eosinophils # (Auto) 0.1, Basophils # (Auto) 0.0, Sodium Level 134L, Potassium Level 3.3L, Chloride Level 108H, Carbon Dioxide Level 16L, Anion Gap 10, Blood Urea Nitrogen 17, Creatinine 1.49H, Estimat Glomerular Filtration Rate 46, BUN/Creatinine Ratio 11, Glucose Level 81, Calcium Level 7.7L, Corrected Calcium 9.1, Total Bilirubin 0.8, Aspartate Amino Transf (AST/SGOT) 27, Alanine Aminotransferase (ALT/SGPT) 17, Alkaline Phosphatase 59, Total Protein 5.0L, Albumin 2.3L Microbiology 01/19/19 Blood Culture - Preliminary, Resulted No growth of blood from patient, incu... A/P: 1. Acute on chronic hypoxic respiratory failure secondary to aspergillus niger pneumonia. Sensitive to echinocandins, afebrile almost 48 hours. Vanc and zosyn stopped. Currently only on anidulafungin, which should continue to finish a two week course. Patient is also on empiric acyclovir due to mouth ulcers. Patient has increasing oxygen requirements today. My suspicion is fluid overload. CXR appears to show worsening bilateral infiltrates and development of left costophrenic blunting, possibly an effusion. BNP pending. Will give furosemide. 2. MDS RAEB II. Transfusion dependent. Would like to keep hgb>8 but it is close enough today at 7.4, so we will watch for now. Platelets transfused to keep >11 or with acute bleeding. 3. Aortic stenosis. Was being evaluated at for endoscopic valve replacement. Given his current circumstances, he is a very poor candidate. Fluid balance is critical. May need to be more aggressive with diuresis. 4. Acute renal insufficiency. Presumably due to acute vancomycin toxicity with high trough. Creatinine has been improving since vanc was d/c'ed. Urine output is low but steady since 01/18. 5. Severe deconditioning. PT/OT on board. 6. Disposition. Management of reversible infection and somewhat reversible acute respiratory failure with chronic component. Anticipate a prolonged hospital course with slow recovery. Once acute issues are resolved, he may be a candidate for further palliative treatments for MDS, but his prognosis is very poor. 7. Code status: DNAR. DAISHA WRIGHT MD Jan 21, 2019 17:49
[2019-01-21 18:00] VITALS: BP 122/77
[2019-01-21] MEDS: POTASSIUM CL 10MEQ/50ML IVPB 50 ML IV SCH ×4 (18:06→22:29)
--- NOTE | 2019-01-21 18:54 | Diagnostic Imaging Report ---
INDICATION: Increasing shortness of breath. EXAMINATION: Portable chest at 6:08 p.m. FINDINGS: Right IJ Port-A-Cath tip projects over the SVC. There is some alveolar infiltrate in the lower portions of both lungs. There are small pleural effusions. IMPRESSION: The infiltrate and effusion on the right appear stable since 01/18/2018. The infiltrate and effusion on the left has increased since the previous study. Dictated by: Dictated on workstation # [id number]
[2019-01-21] MEDS: morphine INJ 4 MG/ML 1 ML (VIAL/SYRINGE) IV PRN (19:50)
[2019-01-21] MEDS: TEMAZEPAM 15 MG (RESTORIL) CAP PO PRN (23:50)
[2019-01-22] VITALS (9 sets, daily range): BP systolic 109–144; BP diastolic 66–86
[2019-01-22] MEDS: RT-ALBUTEROL/IPRATROPIUM 3 ML (DUONEB) VIAL INH SCH ×4 (03:10→20:32)
[2019-01-22] MEDS: morphine INJ 4 MG/ML 1 ML (VIAL/SYRINGE) IV PRN ×3 (03:38→22:05)
[2019-01-22] MEDS: LACTOBACILLUS ACIDOPHILUS (PROBIOTIC) CAPSULE PO SCH ×3 (06:33→17:42)
[2019-01-22] MEDS: OMEPRAZOLE 20 MG (PriLOSEC) CAP NON-FORMULARY PO SCH ×2 (06:33→17:42)
[2019-01-22] MEDS: ACYCLOVIR 400 MG TABLET (ZOVIRAX) PO SCH ×2 (08:47→21:35)
--- NOTE | 2019-01-22 10:28 | Progress Note-Hospitalist ---
Subjective HPI/CC On Admission Date Seen by Provider: Jan 22, 2019 Time Seen by Provider: 10:23 Subjective/Events-last exam Patient sleeping soundly no evidence for respiratory distress. Nursing staff report that he has been less short of breath on Vapotherm and had oatmeal this morning without nausea or any swallowing problems. No evidence for bleeding reported. Objective Exam Vital Signs Vital Signs Date Time Temp Pulse Resp B/P (MAP) Pulse Ox O2 Delivery O2 Flow Rate FiO2 01/22/19 08:00 Vapotherm 25.00 60 01/22/19 05:28 96.6 101 22 109/70 (83) 97 Capillary Refill : General Appearance: No Apparent Distress HEENT: PERRL/EOMI Neck: Non Tender, Supple Respiratory: No Accessory Muscle Use, No Respiratory Distress, Decreased Breath Sounds (Noted in the bases posteriorly right worse than left with rales and a few scattered rhonchi and no wheezing noted.) Cardiovascular: Regular Rate, Rhythm Gastrointestinal: Non Tender, Soft Extremity: Non Tender, No Calf Tenderness, No Pedal Edema Neurologic/Psychiatric: Alert, Oriented x3 Skin: Normal Color, Warm/Dry Lymphatic: No Adenopathy Results/Procedures Lab Patient resulted labs reviewed. Assessment/Plan Assessment and Plan Assess & Plan/Chief Complaint 1. Acute on chronic hypoxic respiratory failure secondary to aspergillus niger pneumonia. Sensitive to echinocandins, afebrile almost 48 hours. Vanc and zosyn stopped. Currently only on anidulafungin, which should continue to finish a two week course. Patient is also on empiric acyclovir due to mouth ulcers. Patient has increasing oxygen requirements today. . CXR yesterday appears to show worsening bilateral infiltrates and development of left costophrenic blunting, possibly an effusion. BNP was low 100s making pulmonary edema unlikely and more likely is worsening fungal pneumonia in this severely debilitated patient with end-stage myelodysplastic syndrome. At this point more Lasix in light of increasing BUN/creatinine ratio unlikely to be of benefit. Patient just received a 1 time dose yesterday. 2. MDS RAEB II. Transfusion dependent. Would like to keep hgb>8 but it is close enough today at 7.4, so we will watch for now. Platelets transfused to keep >11 or with acute bleeding. 3. Aortic stenosis. Was being evaluated at for endoscopic valve replacement. Given his current circumstances, he is a very poor candidate. Fluid balance is critical. May need to be more aggressive with diuresis. 4. Acute renal insufficiency. Presumably due to acute vancomycin toxicity with high trough. Creatinine has been improving since vanc was d/c'ed. Urine output is low but steady since 01/18. 5. Severe deconditioning. PT/OT on board. 6. Disposition. Management of reversible infection and somewhat reversible acute respiratory failure with chronic component. Anticipate a prolonged hospital course with slow recovery. Once acute issues are resolved, he may be a candidate for further palliative treatments for MDS, but his prognosis is very poor. 7. Code status: DNAR. Clinical Quality Measures DVT/VTE Risk/Contraindication: Risk Factor Score Per Nursin DEREK ALFORD MD Jan 22, 2019 10:28
--- NOTE | 2019-01-22 10:44 | Physical Therapy Daily Note ---
PT Daily Note-Current Subjective Pt. in bed, declines sitting up in chair but does agree to LE exercises and sitting EOB. Pt. denies pain. Transfers Therapy Code Descriptions/Definitions Functional [place] Measure: 0=Not Assessed/NA 4=Minimal Assistance 1=Total Assistance 5=Supervision or Setup 2=Maximal Assistance 6=Modified [place] 3=Moderate Assistance 7=Complete [place] Therapy Quality Codes: 6 Independent with activity with or without an assistive device 5 Patient requires set up or clean up by helper. Patient completes activity by themselves 4 Supervision or touching assist (CGA). [place] provide cues , steadying assist 3 The helper provides less than half the effort to complete the activity 2 The helper provides more than half the effort to complete the activity 1 Dependent. The helper does all the effort to complete an activity 7 Patient refused to complete or attempt activity 9 The patient did not perform the activity before the current illness or injury 88 Not attempted due to Medical conditions or safety concerns Transfers (B, C, W/C) (FIM): 1 Scootin Supine to/from Sit: 4 Weight Bearing Right Lower Extremity: Right Weight Bearing/Tolerated Left Lower Extremity: Left Weight Bearing/Tolerated Exercises Supine Ex: Ankle pumps, Quad Set, Short Arc Quads, Straight leg raise Supine Reps: 15 (10-15 reps, min A with SLR) Seated Therapy Exercises: Ankle pumps, Long arc quads Seated Reps: 15 Treatments LE exercise, transfers Assessment Current Status: Fair Progress Pt. did well with LE exercises but fatigued quickly while sitting at EOB and requested to return to supine after 2-3 minutes. Assist x 2 to scoot patient to head of bed. Pt. in bed post session with call light and all needs met. PT [facility] Goals [employer] Pv Installer Goals PT [employer]ne[employer] Electric[employer] Pv Installer Goals Time Frame: Feb 12, 2019 Transfers (B,C,W/C) (FIM): 5 Sit to Lying (QC): 5 Lying-Sitting on Side/Bed(QC): 5 Sit to Stand (QC): 5 Rollin Roll Left to Right (QC): 5 Chair/Zbe-do-Ivbns Xfer(QC): 5 Car Transfer (QC): 5 Does the Patient Walk: No and Walking Goal IS indicated Gait (FIM): 1 Gait distance (FIM): 1=up to 49 ft Distance: 45' Walk 10 feet (QC): 5 Walk 10ft-Uneven Surface(QC): 5 Walk 50ft with 2 Turns (QC): 88 Walk 150 ft (QC): 88 Gait Level of Assist: 5 Gait Assistive Device: FWW PT Plan Treatment/Plan Treatment Plan: Continue Plan of Care Treatment Plan: Bed Mobility, Education, Functional Activity Julia, Functional Strength, Gait, Safety, Therapeutic Exercise, Transfers Treatment Duration: Feb 12, 2019 Frequency: 6 times per week Estimated Hrs Per Day: .25 hour per day Patient and/or Family Agrees t: Yes Time/GCodes Time In: 1009 Time Out: 1028 Total Billed Treatment Time: 19 Total Billed Treatment 1, Ex 15' (FA 4') SINCERE BREAUX PT Jan 22, 2019 10:44
--- NOTE | 2019-01-22 12:16 | Progress Note-Standard ---
Standard Progress Note Progress Notes/Assess & Plan Date Seen by a Provider: Jan 22, 2019 Time Seen by a Provider: 12:11 Progress/Assessment & Plan Mr. Yost is a 73 yo male with transfusion dependent MDS RAEB II who was admitted on 01/08/19 with acute hypoxic respiratory failures secondary to A spergillus pneumonia. He had just been discharged 24 hours earlier after an admission for severe sepsis that had responded to broad spectrum antibiotics. 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 He was given one day of anidulafungin and then switched to voriconazole. Vancomycin was d/c'ed on 01/13. He had recurrence of fever twice on 01/14/19 but then no fever until 01/17. He was restarted on vancomycin and then zosyn on 01/18. On 01/19, sensitivities returned with resistance to voriconazole and sensitivity to echinocandins, so anidulafungin was restarted. Patient also was noted to have acute renal dysfunction presumedly secondary to high trough vancomycin, so vanc was stopped on 01/19. Anidulafungin was started at 1600 on 01/19, and patient has been afebrile since 1800 on 01/19. Patient suffered from worsening shortness of breath overnight and was placed on high flow noninvasive ventilation. He feels somewhat better with this increased oxygen but he remains only able to do brief periods of bedside PT. No BM since yesterday. No episodes of bleeding today. He remains afebrile. Oxygen saturations in upper 90s with Vapotherm at 55-60% FiO2. Patient has regular tachycardia, diffusely diminished breath sounds with moderate accessory muscle use, and 2+ pedal edema unchanged from yesterday. Laboratory Tests 01/21/19 05:15: White Blood Count 3.9L, Red Blood Count 2.55L, Hemoglobin 7.4L, Hematocrit 22L, Mean Corpuscular Volume 88, Mean Corpuscular Hemoglobin 29, Mean Corpuscular Hemoglobin Concent 33, Red Cell Distribution Width 16.1H, Platelet Count 21*L, Mean Platelet Volume 10.6H, Neutrophils (%) (Auto) 70, Lymphocytes (%) (Auto) 25, Monocytes (%) (Auto) 3, Eosinophils (%) (Auto) 2, Basophils (%) (Auto) 0, Neutrophils # (Auto) 2.8, Lymphocytes # (Auto) 1.0, Monocytes # (Auto) 0.1, Eosinophils # (Auto) 0.1, Basophils # (Auto) 0.0, Sodium Level 134L, Potassium Level 3.3L, Chloride Level 108H, Carbon Dioxide Level 16L, Anion Gap 10, Blood Urea Nitrogen 17, Creatinine 1.49H, Estimat Glomerular Filtration Rate 46, BUN/Creatinine Ratio 11, Glucose Level 81, Calcium Level 7.7L, Corrected Calcium 9.1, Total Bilirubin 0.8, Aspartate Amino Transf (AST/SGOT) 27, Alanine Aminotransferase (ALT/SGPT) 17, Alkaline Phosphatase 59, Total Protein 5.0L, Albumin 2.3L Microbiology 01/19/19 Blood Culture - Preliminary, Resulted No growth of blood from patient, incu... Labs today are pending. Chest plain film x-ray, AP/PA 01/21/19 The infiltrate and effusion on the right appear stable since 01/18/2018 [sic]. The infiltrate and effusion on the left has increased since the previous study. A/P: 1. Acute on chronic hypoxic respiratory failure secondary to aspergillus niger pneumonia. Sensitive to echinocandins, afebrile>48 hours. Currently only on anidulafungin, which should continue to finish a two week course. Patient is also on empiric acyclovir due to mouth ulcers. Patient has worsening respiratory failure and worsening chest x-ray. Empiric dose of furosemide yesterday failed to increase the low urine output, but BNP remains low equivocal, suggesting that infectious process is worsening. We are continuing to provide supportive care until we see more effect from the antifungal regimen. If he fails to improve or worsens in the next 2-3 days, he may need bronchoscopy to rule out other opportunistic infections or disease processes such as DAH. 2. MDS RAEB II. Transfusion dependent. Would like to keep hgb>8. Platelets transfused to keep >11 or with acute bleeding. Labs still pending. 3. Aortic stenosis. Was being evaluated at for endoscopic valve replacement. Given his current circumstances, he is a very poor candidate. 4. Acute renal insufficiency. Presumably due to acute vancomycin toxicity with high trough. Creatinine has been improving since vanc was d/c'ed. Urine output is low but steady since 01/18. Labs pending. 5. Severe deconditioning. PT/OT on board. 6. Disposition. Management of reversible infection and somewhat reversible acute respiratory failure with chronic component. Anticipate a prolonged hospital course with slow recovery. Once acute issues are resolved, he may be a candidate for further palliative treatments for MDS, but his prognosis is very poor. 7. Code status: DNAR. DAISHA WRIGHT MD Jan 22, 2019 12:16
[2019-01-22] MEDS: ANIDULAFUNGIN INJECTION 100 MG in NS (IVPB) 100 ML IV SCH (13:41)
[2019-01-22 15:56] LABS: BASOPHILS % (AUTO) 1 % (0-10); EOSINOPHILS # (AUTO) 0.2 10^3/uL (0.0-0.3); EOSINOPHILS % (AUTO) 4 % (0-10); HEMATOCRIT 21 % (40-54); HEMOGLOBIN 7.1 G/DL (13.3-17.7); LYMPHOCYTES % (AUTO) 24 % (12-44); MEAN CORPUSCULAR HEMOGLOBIN 30 PG (25-34); MEAN CORPUSCULAR HGB CONC 34 G/DL (32-36); MEAN CORPUSCULAR VOLUME 89 FL (80-99); MEAN PLATELET VOLUME 8.3 FL (7.4-10.4); MONOCYTES # (AUTO) 0.1 X 10^3 (0.0-1.0); MONOCYTES % (AUTO) 3 % (0-12); NEUTROPHILS # (AUTO) 2.8 X 10^3 (1.8-7.8); NEUTROPHILS % (AUTO) 69 % (42-75); RED CELL DISTRIBUTION WIDTH 16.3 % (10.0-14.5); WHITE BLOOD COUNT 4.1 10^3/uL (4.3-11.0)
[2019-01-22 15:59] LABS: PLATELET COUNT 8 10^3/uL (130-400)
[2019-01-22 16:17] LABS: ALBUMIN 2.2 GM/DL (3.2-4.5); BILIRUBIN,TOTAL 0.7 MG/DL (0.1-1.0); CALCIUM 7.6 MG/DL (8.5-10.1); CREATININE SERUM 1.77 MG/DL (0.60-1.30); POTASSIUM 4.2 MMOL/L (3.6-5.0); TOTAL PROTEIN 5.2 GM/DL (6.4-8.2)
[2019-01-22] MEDS ORDERED: NS IV 500 ML 500 ML ONE (18:17)
[2019-01-22] MEDS: NS W/KCL 20 MEQ/L 1,000 ML IV SCH (21:35)
[2019-01-22] MEDS: LORazepam INJ 2 MG/ML (ATIVAN) VIAL IVP PRN (23:14)
[2019-01-23] MEDS: morphine INJ 4 MG/ML 1 ML (VIAL/SYRINGE) IV PRN ×3 (00:12→10:30)
[2019-01-23] MEDS: RT-ALBUTEROL/IPRATROPIUM 3 ML (DUONEB) VIAL INH SCH ×5 (03:27→22:16)
[2019-01-23 05:17] VITALS: BP 94/62
[2019-01-23] MEDS: LACTOBACILLUS ACIDOPHILUS (PROBIOTIC) CAPSULE PO SCH ×3 (05:43→18:14)
[2019-01-23] MEDS: OMEPRAZOLE 20 MG (PriLOSEC) CAP NON-FORMULARY PO SCH ×2 (05:43→18:14)
[2019-01-23 05:54] LABS: ABG BASE EXCESS -7.6 MMOL/L (-2.5-2.5); ABG OXYGEN SATURATION 100 % (94-100); ABG PCO2 31 MMHG (35-45); ABG PH 7.36 (7.37-7.43); ABG PO2 229 MMHG (79-93)
[2019-01-23 05:57] LABS: ALLENS TEST YES-POS; INSPIRED O2 75%; VENTILATOR NO
[2019-01-23 06:02] LABS: HEMOGLOBIN 7.8 G/DL (13.3-17.7); MEAN PLATELET VOLUME 10.9 FL (7.4-10.4); RED CELL DISTRIBUTION WIDTH 16.5 % (10.0-14.5); WHITE BLOOD COUNT 5.1 10^3/uL (4.3-11.0)
--- NOTE | 2019-01-23 06:09 | NUR ---
DR CHRISTIAN NOTIFIED OF CRITICAL BICARB LEVEL. DR WRIGHT NOTIFIED OF CRITICAL PLATELET LEVEL
[2019-01-23 06:18] LABS: CALCIUM 7.7 MG/DL (8.5-10.1); CREATININE SERUM 2.65 MG/DL (0.60-1.30); POTASSIUM 4.9 MMOL/L (3.6-5.0)
[2019-01-23] MEDS ORDERED: SODIUM BICARB 8.4% 50 MEQ/50 ML VIAL IV NR (07:15)
--- NOTE | 2019-01-23 07:33 | Pulmonary Progress Note ---
Subjective Time Seen by a Provider: 07:37 Subjective/Events-last exam PT is now on noninvasive ventilation Sepsis Event Evaluation Height, Weight, BMI Height: 6'0.00" Weight: 213lbs. 5.0oz. 96.812981rk; 28.9 BMI Method:Stated Exam Exam Vital Signs Date Time Temp Pulse Resp B/P (MAP) Pulse Ox O2 Delivery O2 Flow Rate FiO2 01/23/19 06:34 21 95 60 01/23/19 05:17 96.6 110 26 94/62 (73) 99 NIV Bilevel 01/23/19 03:27 105 27 98 100.00 01/23/19 00:20 124 27 100 100.00 01/22/19 23:05 99.0 132 34 144/86 100 NIV Bilevel 01/22/19 22:59 99.0 132 34 144/86 (105) 100 NIV Bilevel 01/22/19 22:38 135 41 100 100.00 01/22/19 22:05 127 37 95 40.00 01/22/19 20:44 98.8 114 26 123/82 99 Vapotherm 01/22/19 20:34 100 Vapotherm 25.00 60 01/22/19 20:23 98.9 114 24 138/84 99 Vapotherm 01/22/19 20:15 NIV Bilevel 01/22/19 20:07 98.0 116 28 138/84 (102) 99 Vapotherm 60.00 25.00 01/22/19 18:52 98.0 113 28 110/74 99 Vapotherm 25.00 60 01/22/19 18:30 98.6 114 28 115/66 98 Vapotherm 25.00 60 01/22/19 17:55 99.0 114 28 120/69 (86) 97 Vapotherm 60.00 25.00 01/22/19 14:49 95 Vapotherm 25.00 60 01/22/19 08:00 Vapotherm 25.00 60 I & O 01/23/19 06:59 Intake Total 1025 ml Balance 1025 ml Height & Weight Height: 6'0.00" Weight: 213lbs. 5.0oz. 96.872750sh; 28.9 BMI Method:Stated General Appearance: Moderate Distress HEENT: PERRL/EOMI Neck: Non Tender, Supple Respiratory: Accessory Muscle Use, Decreased Breath Sounds (Noted in the bases posteriorly right worse than left with rales and a few scattered rhonchi and no wheezing noted.), Respiratory Distress Cardiovascular: Regular Rate, Rhythm Gastrointestinal: non tender, soft Extremity: Non Tender, No Calf Tenderness, No Pedal Edema Neurologic/Psychiatric: Alert, Oriented x3 Skin: Normal Color, Warm/Dry Lymphatic: No Adenopathy Results Lab Laboratory Tests 01/22/19 15:44 01/23/19 05:45 Assessment/Plan Assessment/Plan Acute respiratory failure -PT is now on noninvasive ventilation Renal failure with metabolic acidosis -Will give 2 amps of bicarb -Will check LA and start gentle hydration SOB with pulmonary edema Aspergillus PNA -Eraxis Anemia -S/p transfusions -Monitor -Oncology managing Pancytopenia/MDS -Oncology following -monitor Very poor prognosis. Hospice/comfort care should be strongly considered. LOREN CHRISTIAN DO Jan 23, 2019 07:33
[2019-01-23] MEDS: LACTATED RINGERS 1,000 ML IV SCH ×2 (08:26→20:04)
[2019-01-23] MEDS: ACYCLOVIR 400 MG TABLET (ZOVIRAX) PO SCH ×2 (08:26→21:21)
[2019-01-23] MEDS: LORazepam INJ 2 MG/ML (ATIVAN) VIAL IVP PRN (08:39)
--- NOTE | 2019-01-23 12:18 | Progress Note-Standard ---
Standard Progress Note Progress Notes/Assess & Plan Date Seen by a Provider: Jan 23, 2019 Time Seen by a Provider: 12:02 Progress/Assessment & Plan Mr. Yost is a 73 yo male with transfusion dependent MDS RAEB II who was admitted on 01/08/19 with acute hypoxic respiratory failures secondary to A spergillus pneumonia. He had just been discharged 24 hours earlier after an admission for severe sepsis that had responded to broad spectrum antibiotics. 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 He was given one day of anidulafungin and then switched to voriconazole. Vancomycin was d/c'ed on 01/13. He had recurrence of fever twice on 01/14/19 but then no fever until 01/17. He was restarted on vancomycin and then zosyn on 01/18. On 01/19, sensitivities returned with resistance to voriconazole and sensitivity to echinocandins, so anidulafungin was restarted. Patient also was noted to have acute renal dysfunction presumedly secondary to high trough vancomycin, so vanc was stopped on 01/19. Anidulafungin was started at 1600 on 01/19, and patient has been afebrile since 1800 on 01/19. On 01/21, patient began to suffer from worsening respiratory failure, of unclear etiology. Patient's breathing continued to worsen overnight to the point he was placed on noninvasive ventilation. Patient has been unable to maintain respiratory drive for more than a few minutes without ventilatory support and reportedly desaturated to 75% after he was no longer able to maintain respiratory rate of 30-40/min. He has not been able to eat. No reports of hemoptysis. He remains afebrile. Overnight, respiratory rate silvia to 40 at times. Patient has regular tachycardia, diffusely diminished breath sounds with significant accessory muscle use, and 2+ pedal edema unchanged from yesterday. Laboratory Tests Test 01/22/19 15:44 01/23/19 05:40 01/23/19 05:45 01/23/19 08:10 Range/Units White Blood Count 4.1 L 5.1 4.3-11.0 10^3/uL Red Blood Count 2.38 L 2.61 L 4.35-5.85 10^6/uL Hemoglobin 7.1 L 7.8 L 13.3-17.7 G/DL Hematocrit 21 L 24 L 40-54 % Mean Corpuscular Volume 89 94 80-99 FL Mean Corpuscular Hemoglobin 30 30 25-34 PG Mean Corpuscular Hemoglobin Concent 34 32 32-36 G/DL Red Cell Distribution Width 16.3 H 16.5 H 10.0-14.5 % Platelet Count 8 *L 34 *L 130-400 10^3/uL Mean Platelet Volume 8.3 10.9 H 7.4-10.4 FL Neutrophils (%) (Auto) 69 42-75 % Lymphocytes (%) (Auto) 24 12-44 % Monocytes (%) (Auto) 3 0-12 % Eosinophils (%) (Auto) 4 0-10 % Basophils (%) (Auto) 1 0-10 % Neutrophils # (Auto) 2.8 1.8-7.8 X 10^3 Lymphocytes # (Auto) 1.0 1.0-4.0 X 10^3 Monocytes # (Auto) 0.1 0.0-1.0 X 10^3 Eosinophils # (Auto) 0.2 0.0-0.3 10^3/uL Basophils # (Auto) 0.0 0.0-0.1 10^3/uL Sodium Level 133 L 134 L 135-145 MMOL/L Potassium Level 4.2 4.9 3.6-5.0 MMOL/L Chloride Level 107 108 H 98-107 MMOL/L Carbon Dioxide Level 15 L 15 L 21-32 MMOL/L Anion Gap 11 11 5-14 MMOL/L Blood Urea Nitrogen 26 H 36 H 7-18 MG/DL Creatinine 1.77 H 2.65 #H 0.60-1.30 MG/DL Estimat Glomerular Filtration Rate 38 24 BUN/Creatinine Ratio 15 14 Glucose Level 86 93 70-105 MG/DL Calcium Level 7.6 L 7.7 L 8.5-10.1 MG/DL Corrected Calcium 9.0 8.5-10.1 MG/DL Total Bilirubin 0.7 0.1-1.0 MG/DL Aspartate Amino Transf (AST/SGOT) 26 5-34 U/L Alanine Aminotransferase (ALT/SGPT) 16 0-55 U/L Alkaline Phosphatase 64 40-136 U/L Total Protein 5.2 L 6.4-8.2 GM/DL Albumin 2.2 L 3.2-4.5 GM/DL Blood Gas Puncture Site RIGHT RADIAL Blood Gas Patient Temperature 97.0 Arterial Blood pH 7.36 L 7.37-7.43 Arterial Blood Partial Pressure CO2 31 L 35-45 MMHG Arterial Blood Partial Pressure O2 229 H 79-93 MMHG Arterial Blood HCO3 17 *L 23-27 MMOL/L Arterial Blood Total CO2 18.0 L 21.0-31.0 MMOL/L Arterial Blood Oxygen Saturation 100 94-100 % Arterial Blood Base Excess -7.6 L -2.5-2.5 MMOL/L Barron Test YES-POS Blood Gas Ventilator Setting NO Blood Gas Inspired Oxygen 75% Lactic Acid Level 0.77 0.50-2.00 MMOL/L Chest plain film x-ray, AP/PA 01/21/19 The infiltrate and effusion on the right appear stable since 01/18/2018 [sic]. The infiltrate and effusion on the left has increased since the previous study. A/P: 1. Acute on chronic hypoxic respiratory failure secondary to aspergillus niger pneumonia. Sensitive to echinocandins, afebrile since 01/19 and normal lactic acid, suggesting correct choice of antimicrobial therapy. Currently only on anidulafungin, which should continue to finish a two week course. Patient is also on empiric acyclovir due to mouth ulcers. Despite all this, patient has worsening respiratory failure and worsening chest x-ray. Etiology is unclear. We are continuing to provide supportive care until we see more effect from the antifungal regimen. Bronchoscopy to rule out other opportunistic infections or disease processes such as DAH may be the next step, but he is at high risk for bleeding during the procedure. Perhaps he has developed a PE, but new opacities on x-ray do not show the class ic wedge-like appearance of an infarct. CTA chest is contrast limited by his renal failure, and V/Q scan in setting of pneumonia is of questionable efficacy. Empiric anticoagulation is contraindicated by his severe thrombocytopenia. I wonder if there is some component of pulmonary edema despite the equivocal BNP. 2. MDS RAEB II. Transfusion dependent, needing PRBCs or platelets nearly every day. Would like to keep hgb>8. Platelets transfused to keep >11 or with acute bleeding. 3. Aortic stenosis. Was being evaluated at for endoscopic valve replacement. Given his current circumstances, he is a very poor candidate. 4. Acute renal insufficiency. Presumably due to acute vancomycin toxicity with high trough. Creatinine has been improved after vanc was d/c'ed but is worsening again. Urine output remains low. Normal anion gap metabolic acidosis likely due to renal failure and is appropriately compensated by respiratory alkalosis. 5. Severe deconditioning. PT/OT deferred due to declining status. 6. Disposition. If patient condition is reversible, anticipate a prolonged hospital course with slow recovery. If acute issues are resolvable, he may be a candidate for further palliative treatments for MDS, but his prognosis is very poor. Discussed hospice briefly with family members but they are not at that stage yet. Some family members have brought up transfer to a different facility but patient and are not interested. 7. Code status: DNAR. Focused Exam Lactate Level 01/23/19 08:10: Lactic Acid Level 0.77 Lactic Acid Level Laboratory Tests Test 01/23/19 08:10 Lactic Acid Level 0.77 MMOL/L (0.50-2.00) DAISHA WRIGHT MD Jan 23, 2019 12:18
[2019-01-23] MEDS: ANIDULAFUNGIN INJECTION 100 MG in NS (IVPB) 100 ML IV SCH (13:37)
[2019-01-23] MEDS ORDERED: RT-ALBUTEROL/IPRATROPIUM 3 ML (DUONEB) VIAL INH PRN (17:00)
[2019-01-23 18:00] VITALS: BP 101/69
[2019-01-23] MEDS: NS W/KCL 20 MEQ/L 1,000 ML IV SCH (20:00)
[2019-01-24] MEDS: morphine INJ 4 MG/ML 1 ML (VIAL/SYRINGE) IV PRN ×8 (00:36→19:45)
[2019-01-24] MEDS: RT-ALBUTEROL/IPRATROPIUM 3 ML (DUONEB) VIAL INH SCH ×3 (02:15→09:35)
[2019-01-24] MEDS: LORazepam INJ 2 MG/ML (ATIVAN) VIAL IVP PRN ×3 (05:30→17:58)
[2019-01-24 06:00] VITALS: BP 107/69
[2019-01-24] MEDS: LACTATED RINGERS 1,000 ML IV SCH (06:22)
[2019-01-24 08:26] LABS: BASOPHILS % (AUTO) 1 % (0-10); EOSINOPHILS # (AUTO) 0.1 10^3/uL (0.0-0.3); EOSINOPHILS % (AUTO) 1 % (0-10); HEMATOCRIT 21 % (40-54); LYMPHOCYTES # (AUTO) 0.9 X 10^3 (1.0-4.0); LYMPHOCYTES % (AUTO) 20 % (12-44); MEAN CORPUSCULAR HEMOGLOBIN 30 PG (25-34); MEAN CORPUSCULAR HGB CONC 34 G/DL (32-36); MEAN CORPUSCULAR VOLUME 90 FL (80-99); MEAN PLATELET VOLUME 12.1 FL (7.4-10.4); MONOCYTES # (AUTO) 0.1 X 10^3 (0.0-1.0); MONOCYTES % (AUTO) 3 % (0-12); NEUTROPHILS # (AUTO) 3.4 X 10^3 (1.8-7.8); NEUTROPHILS % (AUTO) 75 % (42-75); WHITE BLOOD COUNT 4.5 10^3/uL (4.3-11.0)
[2019-01-24] MEDS: LACTOBACILLUS ACIDOPHILUS (PROBIOTIC) CAPSULE PO SCH (08:29)
[2019-01-24] MEDS: ACYCLOVIR 400 MG TABLET (ZOVIRAX) PO SCH (08:30)
[2019-01-24] MEDS: OMEPRAZOLE 20 MG (PriLOSEC) CAP NON-FORMULARY PO SCH (08:30)
[2019-01-24 08:36] LABS: PLATELET COUNT 16 10^3/uL (130-400)
[2019-01-24 08:53] LABS: CALCIUM 7.4 MG/DL (8.5-10.1); CREATININE SERUM 3.37 MG/DL (0.60-1.30); POTASSIUM 4.6 MMOL/L (3.6-5.0)
--- NOTE | 2019-01-24 10:00 | NUR ---
Responded to a referral from that pt was being placed on comfort care. I met with pt, his and his brother, offered support and prayer and encouragement. Pts and brother shared and seemed to be coping well.
--- NOTE | 2019-01-24 10:29 | Physical Therapy Progress Note ---
Therapy Progress Note Patient on hold this morning per nurse, patient on morphine for air hunger and on vapotherm. DONY LOZOYA PT Jan 24, 2019 10:29
--- NOTE | 2019-01-24 10:30 | NUR ---
[facility] CATH INSERTED WITH # 16 AND 10 CC BALLOON FOR COMFORT CARE. MARY LOU., WELL. AGREED TO [facility] CATH
--- NOTE | 2019-01-24 10:40 | Progress Note-Hospitalist ---
Subjective HPI/CC On Admission Date Seen by Provider: Jan 24, 2019 Time Seen by Provider: 10:35 Subjective/Events-last exam Pt is sleepy but arouses to voice. Was able to recognize his . requested conversation regarding options for care including swing bed in [facility] or hospice. Focused Exam Lactate Level 01/23/19 08:10: Lactic Acid Level 0.77 Objective Exam Vital Signs Vital Signs Date Time Temp Pulse Resp B/P (MAP) Pulse Ox O2 Delivery O2 Flow Rate FiO2 01/24/19 09:35 96 Vapotherm 40.00 50 01/24/19 06:00 98.9 120 22 107/69 (82) Capillary Refill : General Appearance: Other (increased work of breathing) Respiratory: Accessory Muscle Use, Respiratory Distress Cardiovascular: Regular Rate, Rhythm Gastrointestinal: Non Tender, Soft Extremity: Pedal Edema Neurologic/Psychiatric: Other (arouses to physicial stimuli, oriented to person) Skin: Normal Color, Warm/Dry Lymphatic: No Adenopathy Results/Procedures Lab Laboratory Tests 01/24/19 08:15 Patient resulted labs reviewed. Assessment/Plan Assessment and Plan Assess & Plan/Chief Complaint Acute Respiratory Failure Currently on Vapotherm, Dr Alfred consulted, appreciate recs Discussed goals of care with Dr Alfred, pt's , and Is[facility] Swing Bed RN states she thinks he is suffering and would like to transition to comfort measures at this time because he has "fought for so long" Will place comfort care orderset MDS Discussed goals of care with patient Discussed with Dr Viveros who agrees that comfort measures/hospice appropriate Diagnosis/Problems Diagnosis/Problems (1) Palliative care encounter (2) Acute respiratory failure (3) Myelodysplastic syndrome (4) Pneumonia Status: Acute (5) Transfusion of blood during current hospitalization Status: Acute Clinical Quality Measures End of Life/Advance Care Plan: Advance Care discuss with: family member (s) End of Life Care: Comfort Measures, Hospice (Hospital) Plan: initiate discussion, clarifying prognosis, developed treatment plan Time spent on discussion(mins): 20 DVT/VTE Risk/Contraindication: Risk Factor Score Per Nursin IAZ WOOD MD Jan 24, 2019 10:40
[2019-01-24] MEDS ORDERED: LORazepam INJ 2 MG/ML (ATIVAN) VIAL IVP PRN (11:15)
[2019-01-24] MEDS ORDERED: ATROPINE 1% OPHTHALMIC SOLN 2 ML SL PRN (11:15)
[2019-01-24] MEDS ORDERED: BISACODYL 10 MG SUPP (DULCOLAX) PR PRN (11:15)
[2019-01-24] MEDS ORDERED: ARTIFICAL TEARS 0.4 ML UNIT DOSE (REFRESH PLUS) OU PRN (11:15)
[2019-01-24] MEDS ORDERED: ONDANSETRON 4 MG/2 ML (SDV) Z0FRAN IVP PRN (11:15)
[2019-01-24] MEDS ORDERED: morphine INJ 4 MG/ML 1 ML (VIAL/SYRINGE) IV PRN (11:15)
[2019-01-24] MEDS ORDERED: SALIVA STIMULANT MOUTH SPRAY (BIOTENE) 1.5 OZ MM PRN (11:15)
[2019-01-24] MEDS ORDERED: PROMETHAZINE INJ 25 MG/ML (PHENERGAN) AMP IVP PRN (11:15)
[2019-01-24] MEDS ORDERED: SCOPOLAMINE 1.5 MG (TRANSDERM-SCOP) PATCH TOP SCH (11:15)
[2019-01-24] MEDS ORDERED: GLYCOPYRROLATE 0.2 MG/ML (ROBINUL) 2 ML VIAL IV PRN (11:15)
[2019-01-24] MEDS ORDERED: RT-ALBUTEROL/IPRATROPIUM 3 ML (DUONEB) VIAL INH PRN (11:15)
[2019-01-24] MEDS ORDERED: ACETAMINOPHEN 650 MG SUPP (TYLENOL) PR PRN (11:15)
--- NOTE | 2019-01-24 11:35 | Pulmonary Progress Note ---
Subjective Time Seen by a Provider: 11:36 Subjective/Events-last exam PT continues to decline. Sepsis Event Evaluation Height, Weight, BMI Height: 6'0.00" Weight: 213lbs. 5.0oz. 96.050055ci; 28.9 BMI Method:Stated Focused Exam Lactate Level 01/23/19 08:10: Lactic Acid Level 0.77 Exam Exam Vital Signs Date Time Temp Pulse Resp B/P (MAP) Pulse Ox O2 Delivery O2 Flow Rate FiO2 01/24/19 09:35 96 Vapotherm 40.00 50 01/24/19 06:00 98.9 120 22 107/69 (82) 92 60.00 25.00 01/24/19 05:36 92 Vapotherm 40.00 50 01/24/19 02:15 94 Vapotherm 40.00 45 01/23/19 22:16 97 Vapotherm 40.00 45 01/23/19 20:00 Vapotherm 01/23/19 18:32 95 Vapotherm 40.00 45 01/23/19 18:00 98.3 107 20 101/69 (80) 96 Vapotherm 60.00 25.00 01/23/19 16:53 110 98 01/23/19 14:45 99 Vapotherm 40.00 45 I & O 01/24/19 07:00 Intake Total 3500 ml Output Total 100 ml Balance 3400 ml Height & Weight Height: 6'0.00" Weight: 213lbs. 5.0oz. 96.444100wd; 28.9 BMI Method:Stated General Appearance: Severe Distress, Other (increased work of breathing) HEENT: PERRL/EOMI, Pharynx Normal Neck: Full Range of Motion, Non Tender, Supple Respiratory: Accessory Muscle Use, Decreased Breath Sounds, Respiratory Distress Cardiovascular: Regular Rate, Rhythm Gastrointestinal: non tender, soft Extremity: Pedal Edema Neurologic/Psychiatric: Other (arouses to physicial stimuli, oriented to person) Skin: Normal Color, Warm/Dry Lymphatic: No Adenopathy Results Lab Laboratory Tests 01/22/19 15:44 01/23/19 05:45 01/24/19 08:15 Assessment/Plan Assessment/Plan Acute respiratory failure -Pt is currently on Vapotherm and is lethargic -Bronchoscopy would just cause more harm with bleeding and respiratory depression. progressive r enal failure with metabolic acidosis -S/p 2 amps of bicarb yesterday Severe Pancytopenia/MDS -Oncology following -monitor Extreme weakness - multifactorial SOB with pulmonary edema Aspergillus PNA -Eraxis Anemia -S/p transfusions -Monitor -Oncology managing Very poor prognosis. Pt has worsening renal failure. IVF were started yesterday to help with renal failure. He does have bilateral infiltrates with probable pulmonary edema. Pt continues to have severe pancytopenia. Thrombocytopenia (16) . He has not had recent hemoptysis however he does not have a strong cough secondary to severe weakness. Pt continues to decline despite aggressive medical care. Dr. Lyons and I discussed pt's current condition with and she is agreeable to comfort care only. She states this is what she has been thinking for awhile and she just needed to hear it from us. When family is ready we will proceed with comfort care only. LOREN CHRISTIAN DO Jan 24, 2019 11:35
--- NOTE | 2019-01-24 13:11 | Occ Therapy Progress Note ---
Therapy Progress Note Pt not seen today. Per nrsg, pt not to be seen. Is being placed on comfort care, 01/24/2019. ERIKA LAI Jan 24, 2019 13:11
[2019-01-24] MEDS: NS W/KCL 20 MEQ/L 1,000 ML IV SCH (14:03)
--- NOTE | 2019-01-24 14:54 | Therapy Team Discharge Summary ---
Therapy Discharge Summary Discharge Recommendations Date of Discharge 01-24-19 Therapy D/C Recommendations: 24 hr Supervision Occupational Therapy Pt. has been seen by occupational therapy to work towards independence. Pt. has sustained a medical decline and is currently transferring to comfort care. Nursing let OT know this date that pt. is on comfort care. Will discharge at this time. Decreased Safety Aware, Decreased UE Strength, Dependent Transfers, Impaired I ADL's, Impaired Self-Care Skills, Restricted Funct UE ROM PT Mcfp Goals Mcfp Goals PT Chief Risk Officer Goals Time Frame: Feb 12, 2019 Transfers (B,C,W/C) (FIM): 5 Sit to Lying (QC): 5 Lying-Sitting on Side/Bed(QC): 5 Sit to Stand (QC): 5 Rollin Chair/Gld-en-Pebaa Xfer(QC): 5 Does the Patient Walk: No and Walking Goal IS indicated Gait (FIM): 1 Gait distance (FIM): 1=up to 49 ft Distance: 45' Walk 50ft with 2 Turns (QC): 88 Walk 150 ft (QC): 88 Gait Level of Assist: 5 Gait Assistive Device: FWW OT Mcfp Goals Chief Risk Officer Goals Time Frame: Feb 01, 2019 Eating (FIM): 6 (not met) Eating (QC): 6 (not met) Groomin (not met) Oral Hygiene (QC): 6 (not met) Bathing(FIM): 5 (not met) Upper Body Dressing(FIM): 5 (not met) Lower Body Dressing(FIM): 5 (not met) Toileting(FIM): 6 (not met) Toileting Hygiene (QC): 6 (not met) Transfers (B,C,W/C) (FIM): 6 (not met) Toilet/Commode Transfer(FIM): 6 (not met) Toilet/Commode Transfer (QC): 6 (not met) Shower Transfer(FIM): 5 (met) Additional Goals: 1-Demonstrate ADL Tasks, 2-Verbalize Understanding, 3- ImproveStrength/Julia 1=Demonstrate adherence to instructed precautions during ADL tasks. 2=Patient will verbalize/demonstrate understanding of assistive devices/modifications for ADL. 3=Patient will improve strength/tolerance for activity to enable patient to perform ADL's. MARY ZHAO OT Jan 24, 2019 14:54
[2019-01-24] MEDS ORDERED: morphine PCA 100 MG/100 ML BAG IV SCH (17:00)
--- NOTE | 2019-01-24 17:03 | Progress Note-Standard ---
Standard Progress Note Progress Notes/Assess & Plan Date Seen by a Provider: Jan 24, 2019 Time Seen by a Provider: 16:59 Progress/Assessment & Plan 73-year-old male with history of myelodysplastic syndrome RAEB 2 who was started on chemotherapy with Vidaza but stopped after 2 days because of worsening respiratory problems. Also diagnosed with aspergillus pneumonia and on treatment with anidulafungin. Respiratory status has been worsening past 48 hours and patient has been requiring morphine 2 mg every 2 hours because of respiratory distress. Patient and his family had decided earlier today to proceed with best supportive care. This is an appropriate decision as his u nderlying condition is not reversible. Will start patient on morphine 1 mg/h continuous infusion by ASIC ENGINEER with 0.5 mg bolus every 30 minutes as needed for comfort. His overall prognosis is poor and he is considered terminal. We will proceed with best supportive care. Focused Exam Lactate Level 01/23/19 08:10: Lactic Acid Level 0.77 YAYA JOHN Jan 24, 2019 17:03
--- NOTE | 2019-01-24 18:00 | NUR ---
MANGLE PRESS CATCHER STARTED WITH MORPHINE 1 MG CONT. AND 0.5 MG EVERY 30 MIN AND NO LOCKOUT IN 4 HOURS.
--- NOTE | 2019-01-24 20:25 | NUR ---
Per pt family request called Dr Quijano and requested increase in meds d/t air hunger and labored breathing. Orders received to increase Morphine GAS WELL PUMPER to 1.5mg/hr continuous.
--- NOTE | 2019-01-24 23:25 | NUR ---
2149 RN called to room d/t pt passing away. Pt confirmed by this RN and SANDRO Arreguin no hearbeat and no respirations noted at this time. Family present and states pt is to be released to [facility] [place], [place]. 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 2211: Dr Quijano and Dr Quinones notified of 2219: Pt spouse and family has gathered personal belongings and request home be notified for peanut picker. States they are leaving at this time. 2223: home notified at this time. 2229: Pt cleaned up by PCCT's, Alba and IV access removed at this time.
--- NOTE | 2019-01-24 23:30 | NUR ---
Pt picked up at this time for [facility] home.
--- NOTE | 2019-01-24 23:30 | NUR ---
MORPHINE PCS wasted at this time in witness of SANDRO Campbell. 93ml disposed of in med waste bottle in med room. Addendum: 01/24/19 at 2345 by RAFAEL GALLEGO RN STUDIO COUCH FRAME BUILDER
== END 2019-01-24 21:50 | disposition expired | DRG 846 ==
LOC: 4TH 01-10 14:44
PROVIDERS: ADMIT Internal Medicine; ATTEND Internal Medicine
DX: Z51.11 Encounter for antineoplastic chemotherapy (principal); D46.9 Myelodysplastic syndrome, unspecified; D61.818 Other pancytopenia; J16.8 Pneumonia due to other specified infectious organisms; B44.89 Other forms of aspergillosis; J96.20 Acute and chronic respiratory failure, unspecified whether with hypoxia or hypercapnia; J81.1 Chronic pulmonary edema; Z66 Do not resuscitate; Z51.5 Encounter for palliative care; R04.2 Hemoptysis; E87.2 Acidosis; N17.9 Acute kidney failure, unspecified; E87.6 Hypokalemia; I35.0 Nonrheumatic aortic (valve) stenosis; I25.10 Atherosclerotic heart disease of native coronary artery without angina pectoris; K12.1 Other forms of stomatitis; E87.70 Fluid overload, unspecified; T36.8X5A Adverse effect of other systemic antibiotics, initial encounter; Z85.118 Personal history of other malignant neoplasm of bronchus and lung; Z87.891 Personal history of nicotine dependence; Z90.2 Acquired absence of lung [part of]
CPT/HCPCS: 36415; 36600; 71045; 80048; 80053; 80202; 82805; 83605; 83880; 85025; 85027; 86850; 86900; 86901; 86920; 94640; 94660; 94760

== ENCOUNTER 2019-01-08 13:21 | Inpatient (IN) | payer MEDICARE, OTHER ==
[~2019-01-08] VITALS: Ht 182.9 cm; Wt 96.8 kg
--- OUTSIDE RECORDS SUMMARY | 2019-01-08 13:28 | XMS REPORT | Encounter Summary ---
Author Author [facility] Organization [facility] Address Unknown Phone Unavailable Care Team Providers Care Sign Designer Name Role Phone Aidan Caraballo PCP Ramiro Collazo MD Unavailable Reason for Visit * Reason Comments Patient Questions Encounter Details Care Team Description Date Type Department Monica Noel RN Patient Questions 12/29/2018 Telephone [facility] [address] [facility] [place] [address] Social History Date Tobacco Use Types Packs/Day [...] Jarrell. Davin Jarrell MD Medical Oncology-Hematology [address] [place], [place] Routing note to Dr. Clark for feedback/authorization. documented in this encounter Plan of Treatment Not on filedocumented as of this encounter Visit Diagnoses Not on filedocumented in this encounter
--- OUTSIDE RECORDS SUMMARY | 2019-01-08 13:28 | XMS REPORT | Encounter Summary ---
Author Author [facility] Organization [facility] Address Unknown Phone Unavailable Care Team Providers Care Web Content Specialist Name Role Phone Aidan Caraballo PCP Ramiro Collazo MD Unavailable Reason for Referral * Test (Routine) Referred By Contact Referred To Contact Status Reason Specialty Diagnoses / Procedures Juancarlos Clark MD [address] [facility] [place] [address] [facility] [address] [address] No Auth Needed Cardiology Diagnoses Severe aortic stenosis P rocedures TRANSESOPHAGEAL ECHOCARDIOGRAM [place] ECHO TRANSESOPHAG R-T 2D W/PRB IMG ACQUISJ I&R Encounter Details Care Team Description Date Type Department Monica Noel RN Aortic stenosis, moderate (Primary Dx); Severe aortic stenosis 12/28/2018 Pre-Admit [facility] [address] [facility] [place] [address] Social History Date Tobacco Use Types Packs/Day [...]
--- OUTSIDE RECORDS SUMMARY | 2019-01-08 13:28 | XMS REPORT | Clinical Summary ---
Author Author [facility] Organization [facility] Address Unknown Phone Unavailable Care Team Providers Care Machine Cell Tuber Name Role Phone Aidan Caraballo PCP Ramiro Collazo MD Unavailable Source Comments Some departments are not documenting in the electronic medical record. If you d o not see the information that you expected, contact Release of Information in [facility] [employer] Information Management department at [phone] for further assistan ce in locating additional records.[facility] Allergies Comments Active Allergy Reactions Severity [...] and increased risk of infections. lives in [place], [place] and will need to be followed locally for treatments, supportive care and close monitoring. He was agreeable to establish care with Dr.Mickey Zafar In [place], [place]. We also discussed the option of best supportive care with palliative service. Patient would like to think about his options but he will proceed with hypomethylating agents for now locally. We will see him again in 2 to 4 months with repeat bone marrow biopsy and aspiration at [facility] to evaluate his response. Depending on [...] Encounters Care Team Description Date Type Specialty Monica Noel RN Patient Questions 12/29/2018 Telephone Cardiology Britney Dunne APRN-C 12/28/2018 Hospital Radiology Encounter Luis Leonard MD [...] Address City/State/Zipcode Phone Number MAIN LAB [address] [place] [address] * COMPREHENSIVE METABOLIC PANEL CELLULAR THERAPEUTICS (12/01/2018 [...] (L) >60 mL/min [facility] MAIN LAB Comment: [place] The eGFR is not validated for use in drug dosing adjustments.Continue to use estimated creatinine clearance per dosing reference text.Please contact the Clinical Pharmacist for questions. eGFR >60 >60 mL/min [facility] MAIN LAB [place] Comment: The eGFR is not validated for use in drug dosing adjustments.Continue to use estimated creatinine clearance per dosing reference text.Please contact the Clinical Pharmacist for questions. Specimen Blood Performing Organization Address City/State/Zipcode Phone Number MAIN LAB [address] [place] [address] * CBC AND DIFF CELLULAR THERAPEUTICS (12/01/2018 [...] LAB MPV 8.9 7 - 11 [place] [facility] Segmented 34 (L) 41 - 77 [...] Count Manual Specimen Blood Performing Organization Address City/[facility] Phone Number MAIN LAB [address] [place] [address] * PHOSPHORUS CELLULAR THERAPEUTICS (11/30/2018 5:32 AM CDT) Only the most recent of 4 results within the time period is included. Phosphorus 3.1Comment: NOTE NEW REFERENCE 2.0 - 4.5 MG/DL MAIN LAB RANGES Specimen Blood Performing Organization Address [facility] Phone Number MAIN LAB [address] [place] [address] * PTT (APTT) (11/30/2018 5:32 AM CDT) Only the most recent of 4 results within the time period is included. APTT 26.8 24.0 - 36.5 SEC MAIN LAB Specimen Blood Performing Organization Address City/[facility] Phone Number MAIN LAB [address] [place] [address] * PROTIME INR (PT) (11/30/2018 5:32 AM CDT) Only the most recent of 4 results within the time period is included. INR 1.3 (H) 0.8 - 1.2 MAIN LAB Specimen Blood Performing Organization Address City/[facility]/Zipcode Phone Number MAIN LAB [address] [place] [address] * FIBRINOGEN (11/30/2018 5:32 AM CDT) Only the most recent of 5 results within the time period is included. Fibrinogen 502 (H) 200 - 400 MG/DL [facility] MAIN LAB Specimen Blood Performing Organization Address [facility] Phone Number [facility] MAIN LAB [address] [place] [address] * URIC ACID (11/30/2018 5:32 AM CDT) Only the most recent of 5 results within the time period is included. Uric Acid 3.4 (L) 4.0 - 8.0 MG/DL [facility] MAIN LAB Specimen Blood Performing Organization Address [facility] Phone Number [facility] MAIN LAB [address] [place] [address] * LDH-LACTATE DEHYDROGENASE (11/30/2018 5:32 AM CDT) Only the most recent of 5 results within the time period is included. Lactate 188 100 - 210 U/L [facility] MAIN LAB Dehydrogenase Specimen Blood Performing Organization Address [facility] Phone Number [facility] MAIN LAB [address] [place] [address] * HLA CLASS 1A 1B 1C AND 2 PHENO HIGH RES (11/29/2018 11:20 PM CDT) Only the most recent of 2 results within the time period is included. Pathologist [facility] HLA Class 1A 1B Report Available in Epic REFERENCE LAB 1C and 2 Pheno High Res Specimen Blood Performing Organization Address [facility] Phone Number REFERENCE LAB REFERENCE LAB See [...] (L) >60 mL/min [facility] MAIN LAB Comment: [place] The eGFR is not validated for use in drug dosing adjustments.Continue to use estimated creatinine clearance per dosing reference text.Please contact the Clinical Pharmacist for questions. eGFR >60 >60 mL/min [facility] MAIN LAB [place] Comment: The eGFR is not validated for use in drug dosing adjustments.Continue to use estimated creatinine clearance per dosing reference text.Please contact the Clinical Pharmacist for questions. Specimen Blood Performing Organization Address [facility] Phone Number MAIN LAB [address] [place] [address] * HLA ANTIBODY ID (11/29/2018 6:03 PM CDT) Pathologist [facility] HLA Antibody ID Report Available in [employer] REFERENCE LAB Performing Organization Address [facility] Phone Number REFERENCE LAB REFERENCE LAB See results for address. * HLA ANTIBODY SCREEN (11/29/2018 6:03 PM CDT) HLA Antibody Report Available in [employer] REFERENCE LAB Screen Specimen Blood Narrative Performed At Performing Organization Address City/[facility] Phone Number REFERENCE LAB REFERENCE LAB See results for address. * CMV AB IGG (11/29/2018 6:03 PM CDT) CMV, IgG NEG MAIN LAB Specimen Blood Performing Organization Address [facility] Phone Number MAIN LAB [address] [place] [address] * URINALYSIS, MICROSCOPIC (11/29/2018 12:15 PM CDT) Only the most recent of 2 results within the time period is included. WBCs,UA NONE 0 - 2 /HPF [facility] MAIN LAB RBCs,UA NONE 0 - 3 /HPF [facility] MAIN LAB Specimen Urine - Urine Performing Organization Address [facility] Phone Number MAIN LAB [address] [place] [address] * URINALYSIS DIPSTICK (11/29/2018 12:15 PM CDT) Only the most recent of 2 results within the time period is included. Color,UA YELLOW [facility] MAIN LAB Turbidity,UA CLEAR CLEAR-CLEAR [facility] MAIN LAB Specific 1.006 1.003 - 1.035 [facility] MAIN LAB Cecil-Urine pH,UA 6.0 5.0 - 8.0 K[facility] MAIN [...] Specimen Urine - Urine Performing Organization Address [facility] Phone Number MAIN LAB [address] [place] [address] * SODIUM-URINE RANDOM (11/29/2018 12:15 PM CDT) Sodium, Random 41 MMOL/L MAIN LAB Specimen Urine - Urine Performing Organization Address [facility] Phone Number MAIN LAB [address] [place] [address] * OSMOLALITY-URINE RANDOM (11/29/2018 12:15 PM CDT) Osmolality-Urin 236 50 - 1,400 MOS/KG MAIN LAB e Specimen Urine - Urine Performing Organization Address [facility] Phone Number MAIN LAB [address] [place] [address] * BONE MARROW (11/29/2018 11:47 AM CDT) PATHOLOGY [facility] MAIN LAB [facility] [email or web address] Department of Pathology and Laboratory Medicine [address] [place] [address] Surgical Pathology Office:[phone] :[phone] SURGICAL PATHOLOGY REPORT NAME: KELLY YOST SURG PATH #: [id number] MR #: [id number] ALT ID #: LOCATION: DISCHARGED DATE OF [...] of Pathology and Laboratory Medicine of the [facility] ([employer]) in compliance with CLIA'88 [...] of Pathology and Laboratory Medicine of the [facility]It has not been cleared or approved by the FDA.The FDA has determined that such clearance or approval is not necessary. Performing Organization Address City/State/Zipcode Phone Number [facility] [address] [place] [address] * CHROMOSOMES FISH DNA PROBE (11/29/2018 11:16 AM CDT) Chromosomes Cytogenetics Report Available [facility] Fish DNA Probe in [facility] Specimen Bone Marrow Performing Organization Address City/[facility]/Zipcode Phone Number [facility] [address] [place] [address] * CHROMOSOMES BONE MARROW (11/29/2018 11:16 AM CDT) Pathologist [facility] Chromosomes Cytogenetics Report Available [facility] Bone Marrow in [facility] Specimen Bone Marrow Performing Organization Address [facility] Phone Number [facility] [address] [place] [address] * HEME PANEL NGS 65 BLD OR BM (11/29/2018 11:10 AM CDT) Pathologist [facility] Heme Panel NGS Report Available in [facility] REFERENCE LAB 65 BLD or Bone Marrow Performing Organization Address [facility] Phone Number REFERENCE LAB REFERENCE LAB See results for address. * FLOW CYTOMETRY (11/29/2018 11:10 AM CDT) Pathologist [facility] PATHOLOGY [facility] www[employer] Kai Soliz MD, Director of Flow Cytometry Laboratory Department of Pathology and Laboratory Medicine [address] [place] [address] Surgical Pathology Office:[phone] :[phone] FLOW CYTOMETRY REPORT NAME: KELLY YOST SURG PATH #: [id number] MR #: [id number] SPECIMEN CLASS: LC BILLING #: [id number] ALT ID #:LOCATION: 42 DATE OF PROCEDURE: 11/29/2018 AGE:73 SEX: M DATE RECEIVED: 11/29/2018 : 1945TIME RECEIVED:12:01 PHYSICIAN: LÁZARO OLIVEIRA DATE OF REPORT: 11/29/2018 COPY TO: DO Maureen DECKER M.D. [facility] DATE OF PRINTIN11/29/2018 Material Received: A: [...] Panel Myeloid Associated Markers (% Positive Cells): SM03t=82; PY40h=9; CD13=80; CD14=1; CD15=5; CD33=66; CD64=9; QF190=05; cyMPO=42; cyMPO+CD34+=20 B Cell Associated Markers (% Positive Cells): CD19=5; CD20=4; fjUS47=1; rqNE09g=4 Java=0; Lambda=1; Java:Lambda ratio=0.0 T Cell Associated Markers (% Positive Cells): CD1a=0; CD2=1; sCD3=0; cyCD3=0; CD4=0; CD5=0; CD7=4; CD8=0 CD4:CD8 ratio=n/a Miscellaneous Markers (% Positive Cells): CD10=1; CD34=72; CD34+CD13+=65; CD34+CD117+=69; CD38=99; CD45= 20; CD56=31; EC466=58; HLA-DR=71; nTdT=0 Cell Viability (%):n/a Number of Cells Analyzed:10,000 Total Number of Markers: 31 Summary of Marker Combinations: Dr/33/34/13/123/45/56/15; 117/34/64/11b/45/14/11c; K/L/34/10/19/45/38/20; 2/7/4/3/1a/45/5/8; nTdt/cy22/34/cy3/cy79a/45/cyMP O/19 This test was developed and its performance characteristics determined by the [facility] Flow Cytometry Laboratory.It has not been cleared or approved by the U.S. Food and Drug Administration (FDA).The FDA has determined that such clearance or approval is not necessary. Performing Organization Address City/[facility]/Zipcode Phone Number [facility] [address] [place] [address] * LEUKEMIA/LYMPHOMA PNL, BONE MARROW (11/29/2018 11:10 AM CDT) Leuk/Lymph SEE PATHOLOGY REPORT MAIN LAB Interpretation Specimen/LLM BONE MARROW [facility] Specimen Bone Marrow Performing Organization Address [facility] Phone Number [facility] [address] [place] [address] * FE STAIN (11/29/2018 11:10 AM CDT) Bone Marrow FE SEE PATHOLOGY REPORT [facility] Specimen Bone Marrow - Bone Marrow Performing Organization Address [facility] Phone Number [facility] [address] [place] [address] * BONE MARROW ASP (11/29/2018 11:10 AM CDT) Bone Marrow Asp SEE PATHOLOGY REPORT MAIN LAB Specimen Bone Marrow - Bone Marrow Performing Organization Address [facility] Phone Number [facility] [address] [place] [address] * BONE MARROW BIOPSY (11/29/2018 11:10 AM CDT) Bone Marrow Bx SEE PATHOLOGY REPORT MAIN LAB Specimen Bone Marrow - Bone Marrow Performing Organization Address [facility] Phone Number [facility] [address] [place] [address] * OSMOLALITY (11/29/2018 5:56 AM CDT) Osmolality 276 (L) 280 - 307 MOSMOL/KG [facility] Performing Organization Address City/[facility]/Zipcode Phone Number [facility] MAIN LAB [address] [place] [address] * AMYLASE (11/29/2018 5:56 AM CDT) Amylase 39 24 - 100 U/L [facility] MAIN LAB Performing Organization Address City/[facility]/Zipcode Phone Number [facility] MAIN LAB [address] [place] [address] * VRE SCREEN (11/26/2018 10:00 PM CDT) Battery Name VRE SCREEN [facility] MAIN LAB Specimen PERIRECTAL SWAB MAIN LAB Description Special NONE [facility] MAIN LAB Requests Culture NO VRE ISOLATED [facility] MAIN LAB Report Status FINAL [facility] MAIN LAB 11/28/2018 Specimen Perirectal Swab Performing Organization Address City/[facility] Phone Number [facility] MAIN LAB [address] [place] [address] * CULTURE-BLOOD W/SENSITIVITY (11/26/2018 9:55 PM CDT) Only the most recent of 2 results within the time period is included. Battery Name BLOOD CULTURE MAIN LAB Specimen BLOOD MAIN LAB Description RIGHT HAND Special NONE MAIN LAB Requests Culture NO GROWTH 5 DAYS [facility] MAIN LAB Report Status FINAL [facility] MAIN LAB 12/02/2018 Specimen Blood Performing Organization Address [facility] Phone Number MAIN LAB [address] [place] [address] * 2-D + DOPPLER ECHOCARDIOGRAM (11/26/2018 2:57 [...] PV Odette Lipari, RDCS Definity OTHER OUTSIDE INVENTORY ACCOUNTANT LAB FS 43.37 28 - 44 % OTHER OUTSIDE LAB EF 73.72 % OTHER OUTSIDE LAB LV mass 145.91 96 - 200 g OTHER OUTSIDE LAB RWT 0.52 <=0.42 OTHER OUTSIDE LAB Aortic valve 1.22 cm2 OTHER OUTSIDE area= LAB AV index 0.26 OTHER OUTSIDE (robinson) LAB E/A ratio 0.66 OTHER OUTSIDE LAB LVOT area 3.80 cm2 OTHER OUTSIDE LAB LVOT stroke 72.23 cm3 OTHER OUTSIDE volume LAB TV rest 33 mmHg OTHER OUTSIDE pulmonary LAB artery pressure E/E' ratio 6.50 OTHER OUTSIDE LAB Right Heart 0.136 m/s OTHER OUTSIDE Systolic TDI S' LAB Left Atrium 14.17 16 - 34 OTHER OUTSIDE Index LAB Cardiology Siemens [id number] OTHER OUTSIDE Ultrasound LAB Machine Left Ventricle [...] 12:37 PM CDT) Impressions Performed At [facility] - Zavgi-km-Xtiw Ultrasound [facility] RAD RESULTS Exam Date: 11/26/2018 Exam Type: POC ED US CARDIAC LTD Analytical Statistician: Joce Elizondo Attending: Hever Guillen Worksheet: ED-Cardiac Clinical Indication(s) for exam: Chest pain Views: Parasternal Long Ren[place]: Limited Parasternal Short [place]: Limited Apical Four-Chamber: Limited Subxiphoid (4 chamber): Limited Subxiphoid IVC: Adequate Apical 2 Chamber: Not obtained Apical Long Ren[place]: Not obtained Subxiphoid LV Short Ren[place]: Not obtained Suprasternal Notch: Not obtained Other: [...] - 12/20/2018 10:10 PM CDT IMPRESSION [facility] - Kwdno-ku-Hswm Ultrasound Exam Date: 11/26/2018 Exam Type: POC ED US CARDIAC LTD Analytical Statistician: Joce Elizondo Attending: Hever Guillen Worksheet: ED-Cardiac Clinical Indication(s) for exam: Chest pain Views: Parasternal Long Reno: Limited Parasternal Short Reno: Limited Apical Four-Chamber: Limited Subxiphoid (4 chamber): Limited Subxiphoid IVC: Adequate Apical 2 Chamber: Not obtained Apical Long Reno: Not obtained Subxiphoid LV Short Reno: Not obtained Suprasternal Notch: Not obtained Other: [...] 2018 at 10:08:06 PM Performing Organization Address City/[facility]/Zipcode Phone Number RAD RESULTS * BNP POC ER (11/26/2018 11:52 AM CDT) Pathologist [facility] BNP POC <15.0 0 - 100 PG/ML MAIN LAB Performing Organization Address [facility] Phone Number MAIN LAB [address] [place] [address] * POC TROPONIN (11/26/2018 11:26 AM CDT) [facility] Lfqqnwze-N-FTU 0.02 0.00 - 0.05 NG/ML MAIN LAB Performing Organization Address [facility] Phone Number MAIN LAB [address] [place] [address] * BLOOD BANK SAMPLE HOLD (11/26/2018 11:24 AM CDT) Pathologist [facility] BB Sample hold IN LAB MAIN LAB Performing Organization Address [facility] Phone Number MAIN LAB [address] [place] [address] * PERIPHERAL SMEAR (11/26/2018 11:24 AM CDT) Pathologist [facility] Peripheral OTHERS=BLASTS MAIN LAB Smear Pathologist INTERPRETED BY SAMSON VALENZUELA M.D. [facility] Signature By the PATH SIGNATURE ABOVE, I attest that I have personally formulated the final interpretation expressed in this report and that the above diagnosis is based upon my examination of the slides and/or other material indicated in this report. Performing Organization Address [facility] Phone Number MAIN LAB [address] [place] [address] * CBC AND DIFF (11/26/2018 11:24 AM CDT) Pathologist [facility] White Blood 2.9 (L) 4.5 - 11.0 K/UL MAIN LAB Cells RBC 3.00 (L) 4.4 [...] NORMAL MAIN LAB Morph Platelet MKD DEC MAIN LAB Estimate Absolute 0.96 (L) 1.8 - 7.0 K/UL KU MAIN LAB Neutrophil Count Manual Specimen Blood Performing Organization Address City/[facility]/Zipcode Phone Number MAIN LAB [address] [place] [address] * LIPASE (11/26/2018 11:24 AM CDT) Lipase 10 (L) 11 - 82 U/L MAIN LAB Specimen Blood Performing Organization Address City/[facility]/Zipcode Phone Number [facility] [address] [place] [address] * COMPREHENSIVE METABOLIC PANEL (11/26/2018 11:24 AM [...] (L) >60 mL/min [facility] MAIN LAB Comment: [place] The eGFR is not validated for use in drug dosing adjustments.Continue to use estimated creatinine clearance per dosing reference text.Please contact the Clinical Pharmacist for questions. eGFR >60 >60 mL/min [facility] MAIN LAB [place] Comment: The eGFR is not validated for use in drug dosing adjustments.Continue to use estimated creatinine clearance per dosing reference text.Please contact the Clinical Pharmacist for questions. Specimen Blood Performing Organization Address City/State/Zipcode Phone Number MAIN LAB [address] [place] [address] * PRANAY PATH MOLEC REF LAB SCAN [...] file. For more i nformation, please contact: [address] [address] Date Inactivated Comments Code Status Date Activated 12/01/2018 2:50 PM Full Code 11/26/2018 8:14 PM Provider has discussed Code Status Yes w/Patient or Family?
--- OUTSIDE RECORDS SUMMARY | 2019-01-08 13:28 | XMS REPORT | Encounter Summary ---
Author Author [facility] Organization [facility] Address Unknown Phone Unavailable Care Team Providers Care Blanking Press Operator Name Role Phone Aidan Caraballo PCP Ramiro Collazo MD Unavailable Reason for Referral * Radiology Services (Routine) Referred By Contact Referred To Contact Status Reason Specialty Diagnoses / Procedures Britney Dunne APRN-C [address] [place] [address] [address] No Auth Needed Radiology Diagnoses Severe aortic stenosis P rocedures CTA CHEST WO/W CONTRAST+POST IMPRESSION * Radiology Services (Routine) Referred By Contact Referred To Contact Status Reason Specialty Diagnoses / Procedures Britney Dunne APRN-C [address] [address] No Auth Needed Radiology Diagnoses Severe aortic stenosis P rocedures CTA CHEST WO/W CONTRAST+POST IMPRESSION * Radiology Services (Routine) Referred By Contact Referred To Contact Status Reason Specialty Diagnoses / Procedures Britney Dunne APRN-C [address] [address] New Request Radiology Diagnoses Severe aortic stenosis P rocedures CTA ABD/PELVIS * Radiology Services (Routine) Referred By Contact Referred To Contact Status Reason Specialty Diagnoses / Procedures Britney Dunne APRN-C [address] [place] [address] New Request Radiology Diagnoses Severe aortic stenosis P rocedures CTA ABD/PELVIS Reason for Visit * Radiology Services (Routine) Referred By Contact Referred To Contact Status Reason Specialty Diagnoses / Procedures Britney Dunne APRN-C [address] [address] [facility] [address] [address] No Auth Needed Radiology Diagnoses Severe aortic stenosis P rocedures CTA CHEST WO/W CONTRAST+POST IMPRESSION Encounter Details Care Team Description Date Type Department Britney Dunne APRN-C [address] [place] [address] [phone] 12/28/2018 [facility] [address] [place] [id number] Social History Date Tobacco Use Types Packs/Day [...] Breath. Shake well before use. fluconazole (DIFLUCAN) Take 150 mg 0 150 mg tablet by mouth once. folic acid (FOLVITE) 1 mg Take 1 mg by 0 tablet mouth daily. levoFLOXacin (LEVAQUIN) Take 750 mg 0 750 mg tablet by mouth once. mometasone 200 Inhale 1 puff 0 mcg/actuation HFAA by mouth into the lungs twice daily. omeprazole DR(+) Take 20 mg by 0 (PRILOSEC) 20 mg capsule mouth twice daily. Prednisolone 5 mg Take 5 mg by 0 tabIndications: 8 tablets mouth. ONCE daily Indications: 8 tablets ONCE daily simvastatin (ZOCOR) 20 mg Take 20 mg by 0 tablet mouth at bedtime daily. temazepam (RESTORIL) 30 Take 30 mg by 0 mg capsule mouth at bedtime daily. tiotropium (SPIRIVA WITH Place 18 mcg 0 HANDIHALER) 18 mcg into inhaler capsule for inhaler and inhale into lungs as directed daily. documented as of this encounter Plan [...]
[2019-01-08] MEDS ORDERED: NS IV 500 ML 500 ML IV ONE (13:29)
--- OUTSIDE RECORDS SUMMARY | 2019-01-08 13:29 | XMS REPORT | Encounter Summary ---
Author Author [facility] Organization [facility] Address Unknown Phone Unavailable Care Team Providers Care Heavy Equipment Rental Manager Name Role Phone Aidan Caraballo PCP Reason for Visit * Reason Comments Cancer * Consult, Test & Treat (Discharge Pending) Referred By Contact Referred To Contact Status Reason Specialty Diagnoses / Procedures Male, Melanie Armstrong MD 4000 [facility] [address] [place] [address] Cc-Ww Bmt Exm [address] [place] [address] [place] [address] No Auth Needed Oncology Diagnoses MDS, RAEB-2 P rocedures F/U APPT REQUEST: [facility] ([facility]) Encounter Details Care Team Description Date Type Department Geoff Jules MD [address] [facility] [place] [address] MDS (myelodysplastic syndrome), high grade (HCC); Pancytopenia (HCC); Stage 3 chronic kidney disease (HCC); Aortic stenosis, moderate 12/08/2018 Office Visit The [address] [phone] Social History Date Tobacco Use Types Packs/Day [...] CDT Your care team: Dr. Geoff Jules Alto Singer Selam Kim APRN Nurse Practitioner Clinical Nurse Coordinators (CNC's) Randi Lynne RN, BSN Robina Farmer RN, BSN Phone numbers: Scheduling # [phone] CNCs Randi and Robina # [phone] Messages left on nurses' line are checked Thursday-Thursday 8:00 AM - 4:00 PM. Evening (after 4:00 PM), weekend and holiday on-call # [phone] For urgent needs after hours, please ask [...] 2012. He has been followed with (in [place], [place] with surveillance. He remembers that his blood count was normal on 06/2018. He noticed worsening shor tness of breath on exertion with occasional chest pain starting 09/2018. [place] time, his platelet count was found to be low at 89K. He was referred to [facility] given his progressive shortness of [...] shortness of breath, he was referred to [facility] for possible acute leukemia. He was admitted at [facility] from 11-08 until 12-01-2018. Per discharge summary ". A peripheral smear from the ED was initially concerning for AML. 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 The patient had stable pancytopenia over admission (counts stayed similar to ones fr [facility] records) and did not require any transfusions. [...] is using a cane. 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 He had good functional statu s until September 2018. -MR: [id number] APPOINTMENT: Future Appointments Date Time Provider Department Center 12/08/2018 10:20 AM Geoff Jules MD CCC2 [facility] Exam REFERRING PHYSICIAN: Healther Male FACILITY: INSURANCE: [...] for detection of rearrangement of CBFB and QQLR8I2 (ETO)/RUNX 1 (AML1) were WNL. However, in 83.5% of interphase cells an extra [id number] (ETO) signal was present. NGS: In process [...] Trial: Patient currently in screening for a [facility] clinical trial. Eastern Co[employer] Oncology Group performance [...] NAME: KELLY YOST A SURG PATH #: [id number] MR #: [id number] ALT ID #: LOCATION: DISCHARGED DATE OF [...] and increased risk of infections. lives in [place], [place] and will need to be followed locally for treatments, supportive care and close monitoring. He was agreeable to establish care with Dr.Mickey Zafar In [place], [place]. We also discussed the option of best supportive care with palliative service. Bob de dios would like to think about his options but he will proceed with hypomethyl ating agents for now locally. We will see him again in 2 to 4 months with repea t bone marrow biopsy and aspiration at [facility] to evaluate his response. Depending on [...] A Denny MD, MSc Hematology/Oncology Fellow [facility] Pager [phone] ATTESTATION I personally performed the maurice portions [...] and increased risk of infections. lives in [place], [place] and will need to be followed locally for treatments, supportive care and close monitoring. He was agreeable to establish care with Dr.Mickey Zafar In [place], [place]. We also discussed the option of best supportive care with palliative service. Bob de dios would like to think about his options but he will proceed with hypomethyl ating agents for now locally. We will see him again in 2 to 4 months with repea t bone marrow biopsy and aspiration at [facility] to evaluate his response. Depending on NGS results, if he has IDH mutations, then IDH targeted agents migh t be an option. documented in this encounter
--- OUTSIDE RECORDS SUMMARY | 2019-01-08 13:29 | XMS REPORT | Encounter Summary ---
Author Author [facility] Organization [facility] Address Unknown Phone Unavailable Care Team Providers Care Block Feeder Name Role Phone Aidan Caraballo PCP Ramiro Collazo MD Unavailable Reason for Visit * Reason Comments Cardiac Eval /TAVR Eval Encounter Details Care Team Description Date Type Department Juancarlos Clark MD [address] [id number] Cardiac Eval (/TAVR Eval) 12/28/2018 Office Visit The [facility] [address] [phone] Social History Date Tobacco Use Types Packs/Day [...] that time. From his mur mur in [place] they found aortic valve stenosis thought to be moderate to severe and felt some of his symptoms could be related to this. They referred him to [facility] for evaluation [...] diverticulosis. He had a heart catheterization in [place] on 11/11/2018 that did not cross the [...] He also denies any histor y of VT, CVA, TIA, cardiac arrhythmia, blood clots, or blood clotting disorders. He denies any allergy to nickel. Denies current rash on torso or groin area. De nies any reason or latter day belief that would impact their care such [...] and PFTs as well. June Bailey APRN [facility] 12/28/2018 Cardiovascular Studies [...] allowing us to participate in his care. Juancalros Clark MD Current Medications (including today's revisions) [...]
--- OUTSIDE RECORDS SUMMARY | 2019-01-08 13:29 | XMS REPORT | Encounter Summary ---
Author Author [facility] Organization [facility] Address Unknown Phone Unavailable Care Team Providers Care Sorter Pricer Name Role Phone Aidan Caraballo PCP Ramiro Collazo MD Unavailable Reason for Referral * Radiology Services (Routine) Referred By Contact Referred To Contact Status Reason Specialty Diagnoses / Procedures Britney Dunne APRN-Hetal [address] [address] [facility] [address] [address] No Auth Needed Radiology Diagnoses Severe aortic stenosis P rocedures CTA CHEST WO/W CONTRAST+POST IMPRESSION * Radiology Services (Routine) Referred By Contact Referred To Contact Status Reason Specialty Diagnoses / Procedures Britney Dunne APRN-Hetal [address] [address] New Request Radiology Diagnoses Severe aortic stenosis P rocedures CTA ABD/PELVIS * Consult, Test & Treat (Routine) Referred By Contact Referred To Contact Status Reason Specialty Diagnoses / Procedures Cody, Ade [facility] [address] [place] [phone] No Auth Needed Specialty Services Cardiothoracic Diagnoses Required Surgery Severe aortic stenosis Reason for Visit * Reason Comments Navigation Assessment /TAVR eval Encounter Details Care Team Description Date Type Department Cynthia Hernandez RN Navigation Assessment (/TAVR eval) 12/08/[address] Profile [address] [facility] 4000 [facility] [place] [address] Social History Date Tobacco Use Types Packs/Day [...] [facility] 12/28/2018 1:30 [address] [facility] 12/28/2018 2:30 [address]HOSPITAL ROOM 1 ([facility]) CAT Radiology Diagnosis & Reason for Visit: /TAVR eval Physician Info: Referring Physician(Oncologist): Geoff Jules MD Supervisor Backfilling: Ramiro Collazo MD PCP: Aidan Caraballo DO [...]
--- OUTSIDE RECORDS SUMMARY | 2019-01-08 13:29 | XMS REPORT | Encounter Summary ---
Author Author [facility] Organization [facility] Address Unknown Phone Unavailable Care Team Providers Care Senior Safety Management Consultant Name Role Phone Ilya Aidan PCP Encounter Details Care Team Description Date Type Department Geoff Jules MD [address] [place] [address] [phone] 12/08/2018 Documentation The [address] [phone] Social History Date Tobacco Use Types Packs/Day [...] of this encounter Progress Notes * Robina Famrer, RN - 12/08/2018 3:03 PM CDT Spoke with Brynn at Dr. Zafar's office at [facility] in [place], [place].Let her know that Dr. Jules had spoken with Dr. Zafar regarding the patient and plan goi ng forward. Provided patients home and mobile phone number to Brynn and leo garcia that she make contact with patient for appointment. Requested fax number so office notes and bone marrow results can be faxed, Brynn provided fax of . Brynn has call back number to clinic for any further questions. documented in this encounter Plan of Treatment Not on filedocumented as of this encounter Visit Diagnoses Not on filedocumented in this encounter
--- OUTSIDE RECORDS SUMMARY | 2019-01-08 13:29 | XMS REPORT | Encounter Summary ---
Author Author [facility] Organization [facility] Address Unknown Phone Unavailable Care Team Providers Care Automotive Parts Counter Associate Name Role Phone Aidan Caraballo PCP Ramiro Collazo MD Unavailable Reason for Visit * Reason Comments Cardiac Eval inpt f/u- as/tavr eval * Consult, Test & Treat (Routine) Referred By Contact Referred To Contact Status Reason Specialty Diagnoses / Procedures Mac, Referring [facility] [address] [address] No Auth Needed Specialty Services Cardiothoracic Diagnoses Required Surgery Severe aortic stenosis Encounter Details Care Team Description Date Type Department Luis Leonard MD [address] [address] Aortic stenosis, moderate (Primary Dx); Non-small cell cancer of right lung (HCC); MDS (myelodysplastic syndrome), high grade (HCC); Pancytopenia (HCC); Chronic obstructive pulmonary disease, unspecified COPD type (HCC); CKD (chronic kidney disease) stage 3, GFR 30-59 ml/min (HCC); PAD (peripheral artery disease) (HCC); On home O2; NILA on CPAP; Hypertension, unspecified type; History of tobacco use 12/28/2018 Office Visit The [facility] [address] [address] Social History Date Tobacco Use [...] t that time. From his murmur in [place] they found aortic valve stenosis thought to [...] diverticulosis. He had a heart catheterization in [place] on 11/11/2018 that did not cross the [...] groin area. De nies any reason or zoroastrianism belief that would impact their care such [...] (HCC) 3. MDS (myelodysplastic syndrome), high grade ([facility]) 4. Pancytopenia ([facility]) 5. Chronic obstructive pulmonary disease, unspecified COPD type ([facility]) 6. CKD (chronic kidney disease) stage 3, GFR 30-59 ml/min ([facility]) 7. PAD (peripheral artery disease) ([facility]) 8. On home O2 9. NILA on CPAP 10. Hypertension, unspecified type 11. History of tobacco use Will plan on getting JANETT to better view the valve and PFTs as well. June Bailey APRN [facility] 12/28/2018 Assessment and [...]
--- OUTSIDE RECORDS SUMMARY | 2019-01-08 13:29 | XMS REPORT | Encounter Summary ---
Author Author [facility] Organization [facility] Address Unknown Phone Unavailable Care Team Providers Care Retail Business Development Manager Name Role Phone Aidan Caraballo PCP Reason for Visit * Reason Comments Navigation Assessment Encounter Details Care Team Description Date Type Department Geoff Jules MD [address] [place] [address] [phone] Navigation Assessment 12/02/2018 Telephone [facility] [address] [place] [phone] Social History Date Tobacco Use Types Packs/Day [...] & Reason for Visit: Transplant/Treatment Options-MDS [facility]-MR: [id number] APPOINTMENT: Future Appointments Date Time Provider Department Center 12/08/2018 10:20 AM Geoff Jules MD CCC2 [facility] Exam REFERRING PHYSICIAN: Healther Male FACILITY: [...] and was [facility]. Timeline of Events: DATES 11/26/2018 Labs [...] for detection of rearrangement of CBFB and KSBA1O7 (ETO)/RUNX 1 (AML1) were WNL. However, in 83.5% of interphase cells an extra [id number] (ETO) signal was present. NGS: In process [...] Physical Needs Intervention: Patient encouraged to use hose turner services for appoin tment(s) Communication: Assessment: Communication Barrier: No Onc Fertility: Assessment: Onc Fertility Assessment: Not applicable documented in this encounter Plan of Treatment Not on filedocumented as of this encounter Visit Diagnoses Not on filedocumented in this encounter
--- OUTSIDE RECORDS SUMMARY | 2019-01-08 13:29 | XMS REPORT | Encounter Summary ---
Author Author [facility] Organization [facility] Address Unknown Phone Unavailable Care Team Providers Care Folding Machine Feeder Name Role Phone Aidan Caraballo PCP Encounter Details Care Team Description Date Type Department Page Mayorga MD [address] [place] [address] 12/03/2018 Documentation The [facility] [address] [place] [address] Social History Date Tobacco Use [...] 12/03/2018 11:59 PM CDT Research Note: [id number], [facility]# [id number], Subject ID [id number] Patient [id number] bone marrow shows MDS. Patient will be reported as a screen f ail. documented in this encounter Plan of Treatment Not on filedocumented as of this encounter Visit Diagnoses Not on filedocumented in this encounter
--- OUTSIDE RECORDS SUMMARY | 2019-01-08 13:31 | XMS REPORT | Encounter Summary ---
Author [facility] Address Unknown Phone Unavailable Care Team Providers Care Chemical Economist Name Role Phone Aidan Caraballo PCP Reason for Referral * Consult, Test & Treat (Discharge Pending) Referred By Contact Referred To Contact Status Reason Specialty Diagnoses / Procedures Male, Melanie Armstrong MD [address] [address] Cc-Ww Bmt Exm [address] [place] [address] No Auth Needed Oncology Diagnoses MDS, RAEB-2 P rocedures F/U APPT REQUEST: [facility] * Consult, Test & Treat (Discharge Pending) Referred By Contact Referred To Contact Status Reason Specialty Diagnoses / Procedures Male, Melanie Armstrong MD [address] [address] Cc-Ww Bmt Ex[address] No Auth Needed Oncology Diagnoses MDS, RAEB-2 P rocedures F/U APPT REQUEST: [facility] Reason for Visit * Reason Comments Chest Pain CP/SOA x few weeks, worse today. Hx AV stinosis * Auth/Cert Referred By Contact Referred To Contact Status Reason Specialty Diagnoses / Procedures Diagnoses Pancytopenia (HCC) Encounter Details Care Team Description Date Type Department Hever Guillen MD 4000 [facility] Emergency Dept [place], [place] [id number] Sherif Moura DO 4000 [facility] [address] [place], [place] [id number] Anyi Reddy MD [address] [place], [place] [phone] Male, Melanie Armstrong MD 4000 [facility] [address] [place], [place] [id number] Pancytopenia (HCC) 11/26/2018 [facility] 12/01/[address] [place], [place] [id number] Social History Date Tobacco Use Types Packs/Day [...] or concerns regarding your hospital stay, call [phone]. Discharging attending physician: MELANIE SEVERINO [[id number]] Regular Diet You have no dietary restriction. [...] Patient with Geoff Jules MD 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, +RAEB2 -[place] labs show definite and stable pancytopenia since ~06/2018 -> WBC ~2, Hgb ~11, Plt ~50 -11/22 admit to [place] & workup significant for Ferritin (1048), abnormal [...] , with lightheadedness, MURRELL -stable murmur -11/22 [place] [facility] did not recommend TAVR in setting of pancytopenia -11/22 [place] LHC: no CAD, [id number] -11/26 [facility] E[facility] showed EF 60%, no [...] Plan: >continue q6mo followup with oncology in [place] #Hepatic steatosis -11/11 [facility] Chol 125 / TriG 117 / HDL 38 / [facility] liver with steatosis, normal spleen -11/26 CT a/p: steatosis -11/26 AST/ALT wnl #Hyponatremia (improving) -Na ~137 -> 136 -> 133 -> 130 11/29 -> 131 11/30 -serum Osm 276. Urine Na 41. Urine Osm 236 -11/15/18 [place] TSH 3.03 -improved after fluids and PO intake #CKD (stable) -Cr ~1.3 baseline -11/26 CT a/p: kidneys unremarkable #GERD > pantoprazole 40mg daily #Constipation > start miralax bid #HTN > discontinued mud analysis well logging captain amlodipine 5mg daily #HLD > continue mud analysis well logging captain simvastatin #COPD > continue mud analysis well logging captain spiriva, mometasone substitute #Insomnia > continue mud analysis well logging captain restoril 30mg qhs prn #Hx of hemorrhoidectomies (stable) > no GI bleeding #Migraine w/ aura (stable, controlled) -mud analysis well logging captain regimen triptan 50mg prn and ibuprofen [...] Staff name: Melanie Severino MD Date: 12/01/2018 [employer] Program[employer] Division of Hematologic Malignancies and Cellular Therapeutics Department of Internal Medicine [facility] Pager [phone] Subjective Kelly Yost had no acute events [...] Continuous Infusions: PRN and Respiratory Meds:alteplase PRN (Personnel Counselor from Rx), lidocaine PRN, ondanse shayna Q6H [...] RN - 12/01/2018 5:26 AM CDT Shift: [id number] NEWS Score: 3, 1, 2 Pain: Denies [...] equipment Therapist: Staci Joseph, Student Physical therapist music library assistant Date: 11/30/2018 Associated attestation - Robina [...] mod-sever e , COPD who presented to [place] with MURRELL, pancytopenia and referred/admitted to [facility] with now most likely MDS vs less likely AML Plan #Pancytopenia, likely MDS vs less likely AML -[place] labs show definite and stable pancytopenia since ~06/2018 -> WBC ~2, Hgb ~11, Plt ~50 -11/22 admit to [place] & workup significant for Ferritin (1048), abnormal [...] , with lightheadedness, MURRELL -stable murmur -11/22 [place] [facility] did not recommend TAVR in setting of pancytopenia -11/22 [place] LHC: no CAD, [id number] -11/26 [facility] showed EF 60%, no [...] Plan: >continue q6mo followup with oncology in [place] #Hepatic steatosis -11/22 [facility]d US: enlarged liver with steatosis, normal spleen -11/26 CT a/p: steatosis -11/26 AST/ALT wnl #Hyponatremia (improving) -Na ~137 -> 136 -> 133 -> 130 11/29 -> 131 11/30 -serum Osm 276. Urine Na 41. Urine Osm 236 -11/15/18 [place] TSH 3.03 -improved after fluids and PO intake #CKD (stable) -Cr ~1.3 baseline -11/26 CT a/p: kidneys unremarkable #GERD > pantoprazole 40mg daily #Constipation > start miralax bid #HTN > holding mud analysis well logging captain amlodipine 5mg daily #HLD > continue mud analysis well logging captain simvastatin #COPD > continue mud analysis well logging captain spiriva, mometasone substitute #Insomnia > continue mud analysis well logging captain restoril 30mg qhs prn #Hx of hemorrhoidectomies (stable) > no GI bleeding #Migraine w/ aura (stable, controlled) -mud analysis well logging captain regimen triptan 50mg prn and ibuprofen [...] Staff name: Melanie Severino MD Date: 11/30/2018 [employer] Program[employer] Division of Hematologic Malignancies and Cellular Therapeutics Department of Internal Medicine [facility] Pager [phone] Subjective Kelly Yost had no acute events [...] Continuous Infusions: PRN and Respiratory Meds:alteplase PRN (Personnel Counselor from Rx), ondansetron Q6H PRN OR ondansetron [...] necessary equipment Therapist: [place] [id number] Date: 11/29/2018 * Page Bourgeois - 11/29/2018 9:50 AM CDT CLINICAL NUTRITION Clinical Nutrition Assessment Summary NAME:Kelly Yost :1945 AGE: 73 y.o. 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 Pt meets criteria for malnutrition. Pt reports [...] mod-sever e , COPD who presents from [facility] with MURRELL, abnormal CBCs and looking for 2nd opinion, and is admitted for pancytopenia with probable AML vs MDS Plan #Pancytopenia, probable AML vs MDS #Presenting syndrome of fevers, fatigue, MURRELL, weakness, weight loss, decreased P O intake, lightheadedness -[place] labs show definite but stable pancytopenia since 06/2018 -> WBC ~2, Hgb ~11, Plt ~50 -11/22 admit to [place] & workup significant for Ferritin (1048), Copper [...] , with lightheadedness, MURRELL -stable murmur -11/22 [place] [facility] did not recommend TAVR in setting of pancytopenia -11/22 [place] LHC: no CAD, [id number]-[id number] -11/26 [facility] showed EF 60%, no [...] Urine Na 41. Urine Osm 236 -11/15/18 [place] TSH 3.03 -ddx: low osmolar intake, SIADH, [...] Plan: >continue q6mo followup with oncology in [place] #Steatosis -11/22 [facility]d US: enlarged liver with steatosis, normal spleen -11/26 CT a/p: steatosis -11/26 AST/ALT wnl #New RIOS (resolved) #New vision change (resolved) #Migraine w/ aura (stable, controlled) -mud analysis well logging captain regimen triptan 50mg prn and ibuprofen prn -concern for regular tension headache but consider APPRENTICESHIP CONSULTANT involvement of likely sana kemia Plan: >low threshold for MRI, LP if develops focal-findings, worsening RIOS #GERD Plan: > continue mud analysis well logging captain pantoprazole 40mg daily > order GI cocktail once today #Constipation > start miralax bid #HTN > holding mud analysis well logging captain amlodipine 5mg daily #HLD > continue mud analysis well logging captain simvastatin #COPD > continue mud analysis well logging captain spiriva, mometasone substitute #Insomnia > continue mud analysis well logging captain restoril 30mg qhs prn #Hx of hemorrhoidectomies (stable) > no GI bleeding PPX: FEN: none, replacing PRN, DIET immunosuppressed LDA: PIV DVT:holding chemical ppx with bleeding risk Code Status: Full Disposition: continue admit to Hematology DC: possible will require [facility] Patient seen and discussed with Dr. 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 Staff name: Melanie Severino MD Date: 11/29/2018 [employer] Program[employer] Division of Hematologic Malignancies and Cellular Therapeutics Department of Internal Medicine [facility] Pager [phone] Subjective Kelly Yost had no acute events [...] PRN and Respiratory Meds:albuterol PRN, alteplase PRN (Personnel Counselor from Rx), ondanse shayna Q6H PRN OR [...] of yellow urine overnight. 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 No c/o N/V overnight. Activity: [...] mod-sever e , COPD who presents from [facility] with MURRELL, abnormal CBCs and looking for 2nd opinion, and is admitted for pancytopenia with probable AML vs MDS Plan #Pancytopenia, probable AML vs MDS #Presenting syndrome of fevers, fatigue, MURRELL, weakness, weight loss, decreased P O intake, lightheadedness -[facility] labs show definite but stable pancytopenia since 06/2018 -> WBC ~2, Hgb ~11, Plt ~50 -11/22 admit to [facility] and workup significant for Ferritin (1048), Copper [...] (irradiated) #Mod-severe , with lightheadedness, MURRELL -11/22 [facility] Cardiology did not recommend TAVR in setting of pancytopenia -11/22 [facility] LHC: no CAD, [id number]-[id number] -11/26 [facility] showed EF 60%, no [...] Plan: >continue q6mo followup with oncology in [place] #Steatosis -11/22 [facility] abd US: enlarged liver with steatosis, normal spleen -11/26 CT a/p: steatosis -11/26 AST/ALT wnl #CKD -Cr ~1.3 baseline -> 1.3 -> 1.45 -11/26 CT a/p: kidneys unremarkable Plan: >encourage PO intake, consider labs if not improving #New RIOS (resolved) #New vision change (resolved) #Migraine w/ aura (stable, controlled) -mud analysis well logging captain regimen triptan 50mg prn and ibuprofen prn -concern for regular tension headache but consider APPRENTICESHIP CONSULTANT involvement of likely sana kemia Plan: >low threshold for MRI, LP if develops focal-findings, worsening RIOS #GERD Plan: > continue mud analysis well logging captain pantoprazole 40mg daily > order GI cocktail once today #HTN > holding mud analysis well logging captain amlodipine 5mg daily #HLD > continue mud analysis well logging captain simvastatin #COPD > continue mud analysis well logging captain spiriva, mometasone substitute #Insomnia > continue mud analysis well logging captain restoril 30mg qhs prn #Hx of hemorrhoidectomies (stable) > no GI bleeding PPX: FEN: none, replacing PRN, DIET immunosuppressed LDA: PIV DVT:holding chemical ppx with bleeding risk Code Status: Full Disposition: continue admit to Hematology Patient seen and discussed with Dr. Maureen Jefferson MD PGY1 Prelim Resident Pager: [phone] ATTESTATION I have personally performed a history and physical exam on the patient. I have discussed the case with the resident and concur with the resident documentation of history, physical exam, assessment, and treatment plan. Staff name: Anyi Reddy MD Date: 11/28/2018 Assault Amphibious Vehicle Officer Division of Hematologic Malignancies and Cellular Therapeutics Pager [phone] Subjective Kelly Yost had no acute events [...] PRN and Respiratory Meds:albuterol PRN, alteplase PRN (Personnel Counselor from Rx), ondanse shayna Q6H PRN OR [...] PM CDT .Patient arrived to room # (27926) via bed accompanied by transport. Patient tra [...] mod-sever e , COPD who presents from [facility] with MURRELL, abnormal CBCs and looking for 2nd opinion, and is admitted for pancytopenia with probable AML vs MDS Plan #Pancytopenia, probable AML vs MDS #Presenting syndrome of fevers, fatigue, MURRELL, weakness, weight loss, decreased P O intake, lightheadedness -[facility] labs show definite but stable pancytopenia since 06/2018 -> WBC ~2, Hgb ~11, Plt ~50 -11/22 admit to [facility] and workup significant for Ferritin (1048), Copper [...] (irradiated) #Mod-severe , with lightheadedness, MURRELL -11/22 [facility] Cardiology did not recommend TAVR in setting of pancytopenia -11/22 [facility] LHC: no CAD, [id number] -11/26 [facility] E[facility] showed EF 60%, no [...] vision change #Migraine w/ aura (stable, controlled) -mud analysis well logging captain regimen triptan 50mg prn and ibuprofen prn -non-focal exam -concern for regular tension headache but consider APPRENTICESHIP CONSULTANT involvement of likely sana kemia Plan: >low threshold for MRI, LP if develops focal-findings, worsening RIOS #Steatosis -11/22 [facility] abd US: enlarged liver with steatosis, normal spleen -11/26 CT a/p: steatosis -11/26 AST/ALT wnl #CKD (stable, ~1.3) #HTN > holding mud analysis well logging captain amlodipine 5mg daily #HLD > continue mud analysis well logging captain simvastatin #COPD > continue mud analysis well logging captain spiriva, mometasone substitute #GERD > continue mud analysis well logging captain omeprazole 20mg daily #Insomnia > continue mud analysis well logging captain restoril 30mg qhs prn #Hx of hemorrhoidectomies (stable) > no GI bleeding #Hx of NSCLC s/p lobe resection and chemo 2012 (stable) -2012 R lobe resection and cisplatin/gemcitibine -11/26 CT chest: R hilar LN, lung nodules <5mm, and old lung resection Plan: >continue q6mo followup with oncology in [place] PPX: FEN: none, replacing PRN, DIET immunosuppressed LDA: PIV DVT:holding chemical ppx with bleeding risk Code Status: Full Disposition: Admit to Hematology Patient seen and discussed with Dr. Maureen Jefferson MD PGY1 Prelim Resident Pager: [phone] ATTESTATION I have personally performed a history and physical exam on the patient. I have discussed the case with the resident and concur with the resident documentation of history, physical exam, assessment, and treatment plan. Staff name: Anyi Reddy MD Date: 11/27/2018 Assault Amphibious Vehicle Officer Division of Hematologic Malignancies and Cellular Therapeutics Pager [phone] Subjective Kelly Yost had no acute events [...] PRN and Respiratory Meds:albuterol PRN, alteplase PRN (Personnel Counselor from Rx), ondanse shayna Q6H PRN OR [...] PM CDT Patient arrived to room # ([id number]) via wheelchair accompanied by transport. Patien t [...] mod-sever e , COPD who presents from [facility] with MURRELL, abnormal CBCs and looking for 2nd opinion, and is admitted for pancytopenia with probable AML vs MDS Plan #Pancytopenia, probable AML vs MDS #Presenting syndrome of fevers, fatigue, MURRELL, weakness, weight loss, decreased P O intake, lightheadedness -[facility] labs show definite but stable pancytopenia ~06/2018 -WBC ~2, Hgb ~11, Plt ~50 -11/22 admit to [facility] and workup significant for Ferritin (1048), Copper [...] (irradiated) #Mod-severe , with lightheadedness, MURRELL -11/22 [facility] Cardiology did not recommend TAVR in setting of pancytopenia -11/22 [facility]: no CAD, [id number] -11/26 [facility] ED: BNP and troponin negative -11/26 [facility] E[facility] showed EF 60%, no wall motion abnormalities, and moderate Plan: >consult cardiology in AM #New RIOS #New vision change #Migraine w/ aura (stable, controlled) -mud analysis well logging captain regimen triptan 50mg prn and ibuprofen prn -non-focal exam -concern for regular tension headache but consider APPRENTICESHIP CONSULTANT involvement of likely sana kemia Plan: >low threshold for MRI, LP if develops focal-findings, worsening RIOS #CKD -Cr ~1.3 -> 1.34 on admit Plan: >500cc NS @100/hr #Steatosis -11/22 [facility] abd US: enlarged liver with steatosis, normal spleen -11/26 CT a/p: steatosis -11/26 AST/ALT wnl #HTN > holding mud analysis well logging captain amlodipine 5mg daily #HLD > continue mud analysis well logging captain simvastatin #COPD > continue mud analysis well logging captain spiriva, mometasone substitute #GERD > continue mud analysis well logging captain omeprazole 20mg daily #Insomnia > continue mud analysis well logging captain restoril 30mg qhs prn #Hx of hemorrhoidectomies (stable) > no GI bleeding #Hx of NSCLC s/p lobe resection and chemo 2012 (stable) -2012 R lobe resection and cisplatin/gemcitibine -11/26 CT chest: R hilar LN, lung nodules <5mm, and old lung resection Plan: >continue q6mo followup with oncology in [place] PPX: FEN: none, replacing PRN, DIET immunosuppressed LDA: PIV DVT:holding chemical ppx with bleeding risk Code Status: Full Disposition: Admit to Hematology Patient seen and discussed with Dr. Martell Jefferson MD PGY1 Prelim Resident Pager: [phone] ATTESTATION I have personally performed a history and physical exam on the patient. I have d iscussed the case with the resident and concur with the resident documentation o f history, physical exam, assessment, and treatment plan unless otherwise noted. Staff name: Sherif Moura DO Pager [phone] Date:11/26/2018 Chief Complaint: 2nd opinion for "MDS", [...] fever Thursday). He follows with oncology in [facility] for previously-resected NSCLC. They noted pancytopenia around . The patient recalls some vitamins and bloodwork but no biopsies or other anais p. He felt his symptoms, especially his MURRELL, progressing the last weeks, so he g ot admitted to [facility] 11/22-11/24 for evaluation. He was seen by [...] quantity to the prior lab trends at [facility]/[place]. He has stable CKD to C r [...] Patient tolerated procedure well. Daisy Diaz APRN [phone] documented in this encounter Consult Notes * [...] moderate . He was seen by his clinical data abstractor in Oct who recommended further testing with LHC/RHC to evaluate shortness of breath. Pt underwent LHC/RHC which did not reveal any CAD. It did show moderate-severe . At that time he was also noted to have pancytopenia. He was evaluated by hemonc at [place] who felt he had MDS. He was admitted at [place] where he was apparently told he had [...] After 5PM please call Cardiology bennett w chimney construction supervisor. Thursday - Thursday 8AM-5PM please call Cardiology consult pager TONY Caro CV Fellow Pager: [phone] Home Medications Medications Prior to Admission Medication [...] PRN and Respiratory Meds:albuterol PRN, alteplase PRN (Personnel Counselor from Rx), ondanse shayna Q6H PRN OR [...] no significant ischemia. He was seen by clinical data abstractor and underwent cardiac catheterization. There was no significant obstructive coronary artery disease noted however he was diagnosed with moderate to severe aortic stenosis a s catheter could not be passed. He also had an echocardiogram demonstrating mod erate to severe aortic stenosis on the outside echo. Patient underwent an echoc ardiogram at [facility] yesterday demonstrating ejection fraction of 60%. Aortic [...] and pale. Patient was being seen at [facility] in [place] and was told he had aortic valve [...] cane, shoes, socks, underwear, hat, jacket * Twaana Murray RN - 11/26/2018 11:56 AM CDT [...] 2 weeks ago he was evaluated at [facility] in [place] and underwent US and cardiac cath showing moderate aortic valve stenosis. He also states that he was noted to have low WBC and platelets at that time. Pt from [place] in [facility]. 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 History provided by: Patient interpreter for the deaf used: No Review of Systems: Review of [...] 11 - 82 U/L Final POC TROPONIN Rtntfzgd-Q-RVS 0.02 0.00 - 0.05 NG/ML Final URINALYSIS DIPSTICK Color,UA YELLOW Final Turbidity,UA CLEAR CLEAR-CLEAR Final Specific Windber-Urine 1.014 1.003 - 1.035 Final pH,UA 6.0 [...] (Results Pending) EKG: Normal sinus rhythm (108), ID 164, QRS 80, QTc 429, No STEMI [...] file Procedure Notes: Procedures Attestation / Supervision: lAexis Watkins, dandy scribing for and in the presence of Joce Elizondo MD. [place] McGhie Attestation / Supervision Note concerning Kelly [...] & cisplatin chemotherapy - q6mo f/u in [place] 5. Stage 3 CKD - Baseline Cr ~1.3 - Stable - Encourage PO intake 6. Migraines w/ aura - HORTICULTURE TEACHER sumatriptan and ibuprofen 7. Steatosis - OSH abdominal US revealed liver enlargement with steatosis - CT on 11/26 revealed steatosis - AST, ALT wnl - Continue to follow 8. GERD - Protonix 40 mg 9. HLD - Simvastatin 20 mg 10. COPD - Albuterol, 2 puff, BID & prn - Symbicort, 2 puff, BID - Tiotropium QD 11. Insomnia - HORTICULTURE TEACHER Temazepam 30 mg Subjective Kelly Yost is [...] Continuous Infusions: PRN and Respiratory Meds:alteplase PRN (Personnel Counselor from Rx), lidocaine PRN, ondanse shayna Q6H [...] home health when medically stable. Possible [facility]. Pt's will provide transportation home. SW will continue to follow for d/c needs. 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 Pt is from [facility] in [place], [place] and is seeking a second opinion. Met with the pt, his , Viktor, and his dtr, Sylvia, at bedside for assessment and d/c planning. The pt reports he was independent with all care needs until t wo weeks prior to hospital admission. Pt became progressively fatigued and weake issac. Pt's said he stopped doing cloth calender and she had to drive for h im on some occasions. The pt has a walker and quad cane. He typically uses the w alker. The pt has no prior h/o HH, SNF, IPR, or LTACH. The pt acknowledges that he may need to remain in the area after hospital d/c. SW provided information about the [facility]. The pt and his are appreciative of the info. Pt's declines a caregiver referral to the [facility] at this time. The pt has support from his , daughter, son, and friends. The pt's is home with e pt and can provide 24/7 care. The pt's son lives 1 hour away from the pt's [facility] e. The pt's dtr lives 1 hour from the area. The pt's son and dtr cannot provi de consistent care d/t their distance from the pt's home and their familial comm itments. The pt said his goal is to function at a more independent level so he c an successfully manage his care needs in the home setting. Patient Address/Phone [address] [phone] (home) Emergency Contact Extended Emergency Contact Information Primary Emergency Contact: sylvia schneider Mobile Relation: Daughter Secondary Emergency Contact: viktor yost Mobile Relation: Spouse Healthcare Directive Healthcare Directive: Yes, patient has a healthcare directive Type of Healthcare Directive: Durable power of employment attorney for healthcare, Living W ill Location [...] Source of Income Source Of Income: Other senior care income ? Financial Assistance Needed? No Psychosocial [...] ? Outpatient Therapy PT: No OT: No TEAM PHYSICIAN: No ? [facility] Facility/Custodial SNF: No NH: No ? Inpatient Rehab IPR: No ? [facility] LTACH: No ? Acute Hospital Stay Acute Hospital Stay: No Patricia Aguilar LMSW Pg [phone] * Care Plan - Cindy Berumen RN [...] AML (The Beat AM L Trial) HSC: [id number] Consent Version Date: Version [id number] Clinical trial [...] Organization Address City/State/Zipcode Phone Number MAIN LAB [address] [place] [address] * COMPREHENSIVE METABOLIC PANEL CELLULAR THERAPEUTICS (12/01/2018 [...] (L) >60 mL/min [facility]IN [facility] Comment: Stateless The eGFR is not validated for use in drug dosing adjustments.Continue to use estimated creatinine clearance per dosing reference text.Please contact the Clinical Pharmacist for questions. eGFR >60 >60 mL/min [facility] MAIN LAB Stateless Comment: The eGFR is not validated for use in drug dosing adjustments.Continue to use estimated creatinine clearance per dosing reference text.Please contact the Clinical Pharmacist for questions. Specimen Blood Performing Organization Address City/State/Zipcode Phone Number [facility] [address] [place] [address] * CBC AND DIFF CELLULAR THERAPEUTICS (12/01/2018 [...] Count Manual Specimen Blood Performing Organization Address City/[facility]/Zipcode Phone Number [facility] MAIN LAB [address] [place] [address] * LDH-LACTATE DEHYDROGENASE (11/30/2018 5:32 AM CDT) Lactate 188 100 - 210 U/L [facility] MAIN [facility] Dehydrogenase Specimen Blood Performing Organization Address [facility] Phone Number [facility] [address] [place] [address] * URIC ACID (11/30/2018 5:32 AM CDT) Uric Acid 3.4 (L) 4.0 - 8.0 MG/DL MAIN LAB Specimen Blood Performing Organization Address [facility] Phone Number MAIN LAB [address] [place] [address] * FIBRINOGEN (11/30/2018 5:32 AM CDT) Fibrinogen 502 (H) 200 - 400 MG/DL MAIN LAB Specimen Blood Performing Organization Address [facility] Phone Number MAIN LAB [address] [place] [address] * PHOSPHORUS CELLULAR THERAPEUTICS (11/30/2018 5:32 AM CDT) Phosphorus 3.1Comment: NOTE NEW REFERENCE 2.0 - 4.5 MG/DL [facility] MAIN LAB RANGES Specimen Blood Performing Organization Address [facility] Phone Number MAIN LAB [address] [place] [address] * MAGNESIUM CELLULAR THERAPEUTICS (11/30/2018 5:32 AM CDT) Magnesium 1.9 1.6 - 2.6 mg/dL MAIN LAB Specimen Blood Performing Organization Address [facility]/Zipcode Phone Number MAIN LAB [address] [place] [id number] * COMPREHENSIVE METABOLIC PANEL CELLULAR THERAPEUTICS (11/30/2018 [...] Creatinine 1.33 (H) 0.4 - 1.24 MG/DL [facility] Calcium 8.6 8.5 - 10.6 MG/DL MAIN LAB Total Protein 6.0 6.0 - 8.0 G/DL MAIN LAB Total Bilirubin 0.7 0.3 - 1.2 MG/DL MAIN LAB Albumin 3.4 (L) 3.5 - 5.0 G/DL [facility] Alk Phosphatase 62 25 - 110 U/L [facility] AST (SGOT) 15 7 - 40 U/L [facility] CO2 19 (L) 21 - 30 MMOL/L [facility] ALT (SGPT) 18 7 - 56 U/L [facility] Anion Gap 8 3 - 12 [facility] eGFR Non 53 (L) >60 mL/min [facility] Comment: Stateless The eGFR is not validated for use in drug dosing adjustments.Continue to use estimated creatinine clearance per dosing reference text.Please contact the Clinical Pharmacist for questions. eGFR >60 >60 mL/min [facility] Stateless Comment: The eGFR is not validated for use in drug dosing adjustments.Continue to use estimated creatinine clearance per dosing reference text.Please contact the Clinical Pharmacist for questions. Specimen Blood Performing Organization Address City/[facility]/Zipcode Phone Number [facility] [address] [place] [address] * PTT (APTT) (11/30/2018 5:32 AM CDT) APTT 26.8 24.0 - 36.5 SEC [facility] Specimen Blood Performing Organization Address City/[facility]/Zipcode Phone Number [facility] [address] [place] [address] * PROTIME INR (PT) (11/30/2018 5:32 AM CDT) INR 1.3 (H) 0.8 - 1.2 [facility] Specimen Blood Performing Organization Address [facility]/Zipcode Phone Number [facility] [address] [place] [address] * CBC AND DIFF CELLULAR THERAPEUTICS (11/30/2018 [...] Address City/State/Zipcode Phone Number MAIN LAB [address] [place] [address] * HLA CLASS 1A 1B 1C AND 2 PHENO HIGH RES (11/29/2018 11:20 PM CDT) [facility] HLA Class 1A 1B Report Available in Epic REFERENCE LAB 1C and 2 Pheno High Res Specimen Blood Performing Organization Address City/[facility]/Zipcode Phone Number REFERENCE LAB REFERENCE LAB See results for address. * BASIC METABOLIC PANEL (11/29/2018 11:20 PM CDT) [facility] Sodium 130 (L) 137 - 147 MMOL/L [...] (L) >60 mL/min [facility] MAIN LAB Comment: Stateless The eGFR is not validated for use in drug dosing adjustments.Continue to use estimated creatinine clearance per dosing reference text.Please contact the Clinical Pharmacist for questions. eGFR >60 >60 mL/min [facility] MAIN [facility] Stateless Comment: The eGFR is not validated for use in drug dosing adjustments.Continue to use estimated creatinine clearance per dosing reference text.Please contact the Clinical Pharmacist for questions. Specimen Blood Performing Organization Address City/State/Zipcode Phone Number MAIN LAB [address] [place] [address] * HLA ANTIBODY ID (11/29/2018 6:03 PM CDT) HLA Antibody ID Report Available in Epic REFERENCE LAB Performing Organization Address City/[facility] Phone Number REFERENCE LAB REFERENCE LAB [...] PM CDT) HLA Antibody Report Available in [facility] REFERENCE LAB Screen Specimen Blood Narrative Performed At Performing Organization Address City/State/Zipcode Phone Number REFERENCE LAB REFERENCE LAB See results for address. * CMV AB IGG (11/29/2018 6:03 PM CDT) CMV, IgG NEG [facility] MAIN [facility] Specimen Blood Performing Organization Address City/State/Zipcode Phone Number [facility] MAIN [facility] [address] [place] [address] * URINALYSIS, MICROSCOPIC (11/29/2018 12:15 PM CDT) WBCs,UA NONE 0 - 2 /HPF [facility] MAIN LAB RBCs,UA NONE 0 - 3 /HPF [facility] MAIN LAB Specimen Urine - Urine Performing Organization Address City/State/Zipcode Phone Number MAIN LAB [address] [place] [address] * URINALYSIS DIPSTICK (11/29/2018 12:15 PM CDT) Color,UA YELLOW [facility] MAIN [facility] Turbidity,UA CLEAR CLEAR-CLEAR [facility] MAIN LAB Specific 1.006 1.003 - 1.035 [facility] MAIN LAB Windber-Urine pH,UA 6.0 5.0 - 8.0 [facility] MAIN [...] Specimen Urine - Urine Performing Organization Address [facility] Phone Number MAIN LAB [address] [place] [address] * OSMOLALITY-URINE RANDOM (11/29/2018 12:15 PM CDT) Osmolality-Urin 236 50 - 1,400 MOS/KG [facility] MAIN LAB e Specimen Urine - Urine Performing Organization Address [facility] Phone Number MAIN LAB [address] [place] [address] * SODIUM-URINE RANDOM (11/29/2018 12:15 PM CDT) Sodium, Random 41 MMOL/L MAIN LAB Specimen Urine - Urine Performing Organization Address [facility] Phone Number MAIN LAB [address] [place] [address] * BONE MARROW (11/29/2018 11:47 AM CDT) PATHOLOGY [facility]IN [facility] [email or web address] Department of Pathology and Laboratory Medicine [address] [place] [address] Surgical Pathology Office:[phone] :[phone] SURGICAL PATHOLOGY REPORT NAME: KELLY YOST SURG PATH #: [id number] MR #: [id number] ALT ID #: LOCATION: DISCHARGED DATE OF [...] length and 0.2 cm in diameter cylindrical, yellow-welhc firm piece of tissue. The specimen is [...] of Pathology and Laboratory Medicine of the [facility] ([employer]) in compliance [...] of Pathology and Laboratory Medicine of the [facility].It has not been cleared or approved by the FDA.The FDA has determined that such clearance or approval is not necessary. Performing Organization Address City/State/Zipcode Phone Number [facility] [address] [place] [address] * CHROMOSOMES BONE MARROW (11/29/2018 11:16 AM CDT) Chromosomes Cytogenetics Report Available [facility] Bone Marrow in Epic Specimen Bone Marrow Performing Organization Address City/[facility] Phone Number [facility] [address] [place] [address] * CHROMOSOMES FISH DNA PROBE (11/29/2018 11:16 AM CDT) Chromosomes Cytogenetics Report Available [facility] Fish DNA Probe in Epic Specimen Bone Marrow Performing Organization Address [facility] Phone Number [facility] [address] [place] [address] * FLOW CYTOMETRY (11/29/2018 11:10 AM CDT) PATHOLOGY [facility] LAB [facility] [email or web address] Kai Soliz MD, Director of Flow Cytometry Laboratory Department of Pathology and Laboratory Medicine [address] [place] [address] Surgical Pathology Office:[phone] :[phone] FLOW CYTOMETRY REPORT NAME: KELLY YOST SURG PATH #: [id number] MR #: [id number] SPECIMEN CLASS: LC BILLING #: [id number] ALT ID #:LOCATION: [id number] DATE OF PROCEDURE: 11/29/2018 AGE:73 SEX: M DATE RECEIVED: 11/29/2018 : 1945TIME RECEIVED:12:01 PHYSICIAN: DAISY DIAZ DATE OF REPORT: 11/29/2018 COPY TO: DO Maureen DECKER M.D. MALE,[facility] DATE OF PRINTIN11/29/2018 Material Received: A: Bone [...] Panel Myeloid Associated Markers (% Positive Cells): OZ01c=27; BH99d=3; CD13=80; CD14=1; CD15=5; CD33=66; CD64=9; WT261=78; cyMPO=42; cyMPO+CD34+=20 B Cell Associated Markers (% Positive Cells): CD19=5; CD20=4; ubRH60=7; quOP51t=4 [place]=0; Lambda=1; [place]:Lambda ratio=0.0 T Cell Associated Markers (% Positive Cells): CD1a=0; CD2=1; sCD3=0; cyCD3=0; CD4=0; CD5=0; CD7=4; CD8=0 CD4:CD8 ratio=n/a Miscellaneous Markers (% Positive Cells): CD10=1; CD34=72; CD34+CD13+=65; CD34+CD117+=69; CD38=99; CD45= 20; CD56=31; VY466=92; HLA-DR=71; nTdT=0 Cell Viability (%):n/a Number of Cells Analyzed:10,000 Total Number of Markers: 31 Summary of Marker Combinations: Dr/33/34/13/123/45/56/15; 117/34/64/11b/45/14/11c; K/L/34/10/19/45/38/20; 2/7/4/3/1a/45/5/8; nTdt/cy22/34/cy3/cy79a/45/cyMP O/19 This test was developed and its performance characteristics determined by the [facility] Flow Cytometry Laboratory.It has not been cleared or approved by the U.S. Food and Drug Administration (FDA).The FDA has determined that such clearance or approval is not necessary. Performing Organization Address City/[facility]/Zipcode Phone Number MAIN LAB [address] [place] [address] * HEME PANEL NGS 65 BLD OR BM (11/29/2018 11:10 AM CDT) Heme Panel NGS Report Available in Epic REFERENCE LAB 65 BLD or Bone Marrow Performing Organization Address [facility] Phone Number REFERENCE LAB REFERENCE LAB See results for address. * LEUKEMIA/LYMPHOMA PNL, BONE MARROW (11/29/2018 11:10 AM CDT) Leuk/Lymph SEE PATHOLOGY REPORT MAIN LAB Interpretation Specimen/LLM BONE MARROW MAIN LAB Specimen Bone Marrow Performing Organization Address [facility] Phone Number MAIN LAB [address] [place] [address] * FE STAIN (11/29/2018 11:10 AM CDT) Bone Marrow FE SEE PATHOLOGY REPORT MAIN LAB Specimen Bone Marrow - Bone Marrow Performing Organization Address [facility]/Zipcode Phone Number MAIN LAB [address] [place] [address] * BONE MARROW BIOPSY (11/29/2018 11:10 AM CDT) Bone Marrow Bx SEE PATHOLOGY REPORT MAIN LAB Specimen Bone Marrow - Bone Marrow Performing Organization Address [facility]/Zipcode Phone Number MAIN LAB [address] [place] [address] * BONE MARROW ASP (11/29/2018 11:10 AM CDT) Bone Marrow Asp SEE PATHOLOGY REPORT MAIN LAB Specimen Bone Marrow - Bone Marrow Performing Organization Address City/[facility]/Zipcode Phone Number [facility] MAIN [facility] [address] [place] [address] * AMYLASE (11/29/2018 5:56 AM CDT) Amylase 39 24 - 100 U/L [facility] MAIN LAB Performing Organization Address [facility] Phone Number [facility] MAIN [facility] [address] [place] [address] * OSMOLALITY (11/29/2018 5:56 AM CDT) Osmolality 276 (L) 280 - 307 MOSMOL/KG [facility] MAIN LAB Performing Organization Address [facility] Phone Number [facility] MAIN [facility] [address] [place] [address] * LDH-LACTATE DEHYDROGENASE (11/29/2018 5:56 AM CDT) Lactate 208 100 - 210 U/L MAIN LAB Dehydrogenase Specimen Blood Performing Organization Address [facility] Phone Number MAIN LAB [address] [place] [address] * URIC ACID (11/29/2018 5:56 AM CDT) Uric Acid 3.9 (L) 4.0 - 8.0 MG/DL MAIN LAB Specimen Blood Performing Organization Address [facility] Phone Number MAIN LAB [address] [place] [address] * FIBRINOGEN (11/29/2018 5:56 AM CDT) Fibrinogen 490 (H) 200 - 400 MG/DL [facility] MAIN LAB Specimen Blood Performing Organization Address [facility] Phone Number MAIN LAB [address] [place] [address] * PHOSPHORUS CELLULAR THERAPEUTICS (11/29/2018 5:56 AM CDT) Phosphorus 3.1Comment: NOTE NEW REFERENCE 2.0 - 4.5 MG/DL [facility] MAIN LAB RANGES Specimen Blood Performing Organization Address [facility]/Zipcode Phone Number [facility] MAIN LAB [address] [place] [address] * MAGNESIUM CELLULAR THERAPEUTICS (11/29/2018 5:56 AM CDT) Magnesium 2.0 1.6 - 2.6 mg/dL [facility] MAIN LAB Specimen Blood Performing Organization Address City/[facility]/Zipcode Phone Number MAIN LAB [address] [place] [address] * COMPREHENSIVE METABOLIC PANEL CELLULAR THERAPEUTICS (11/29/2018 [...] (L) >60 mL/min [facility] MAIN LAB Comment: Stateless The eGFR is not validated for use in drug dosing adjustments.Continue to use estimated creatinine clearance per dosing reference text.Please contact the Clinical Pharmacist for questions. eGFR >60 >60 mL/min [facility] MAIN [facility] Stateless Comment: The eGFR is not validated for use in drug dosing adjustments.Continue to use estimated creatinine clearance per dosing reference text.Please contact the Clinical Pharmacist for questions. Specimen Blood Performing Organization Address City/[facility]/Zipcode Phone Number MAIN LAB [address] [place] [address] * PTT (APTT) (11/29/2018 5:56 AM CDT) APTT 26.8 24.0 - 36.5 SEC MAIN LAB Specimen Blood Performing Organization Address City/[facility]/Zipcode Phone Number MAIN LAB [address] [place] [address] * PROTIME INR (PT) (11/29/2018 5:56 AM CDT) INR 1.3 (H) 0.8 - 1.2 [facility] MAIN LAB Specimen Blood Performing Organization Address City/[facility]/Zipcode Phone Number MAIN LAB [address] [place] [address] * CBC AND DIFF CELLULAR THERAPEUTICS (11/29/2018 [...] Count Manual Specimen Blood Performing Organization Address City/[facility]/Zipcode Phone Number [facility] MAIN [facility] [address] [place] [address] * LDH-LACTATE DEHYDROGENASE (11/28/2018 5:33 AM CDT) Lactate 190 100 - 210 U/L MAIN LAB Dehydrogenase Specimen Blood Performing Organization Address City/State/Zipcode Phone Number [facility] MAIN [facility] [address] [place] [address] * URIC ACID (11/28/2018 5:33 AM CDT) Uric Acid 4.4 4.0 - 8.0 MG/DL [facility] MAIN LAB Specimen Blood Performing Organization Address City/[facility]/Zipcode Phone Number [facility] MAIN [facility] [address] [place] [address] * FIBRINOGEN (11/28/2018 5:33 AM CDT) Fibrinogen 480 (H) 200 - 400 MG/DL [facility] MAIN LAB Specimen Blood Performing Organization Address City/[facility] Phone Number [facility] [address] [place] [address] * PHOSPHORUS CELLULAR THERAPEUTICS (11/28/2018 5:33 AM CDT) Phosphorus 3.3Comment: NOTE NEW REFERENCE 2.0 - 4.5 MG/DL [facility] MAIN LAB RANGES Specimen Blood Performing Organization Address City/[facility] Phone Number [facility] [address] [place] [address] * MAGNESIUM CELLULAR THERAPEUTICS (11/28/2018 5:33 AM CDT) Magnesium 1.9 1.6 - 2.6 mg/dL [facility] MAIN LAB Specimen Blood Performing Organization Address [facility] Phone Number [facility] MAIN [facility] [address] [place] [address] * COMPREHENSIVE METABOLIC PANEL CELLULAR THERAPEUTICS (11/28/2018 [...] LAB Anion Gap 8 3 - 12 [facility] eGFR Non 48 (L) >60 mL/min [facility] Comment: Stateless The eGFR is not validated for use in drug dosing adjustments.Continue to use estimated creatinine clearance per dosing reference text.Please contact the Clinical Pharmacist for questions. eGFR 58 (L) >60 mL/min MAIN LAB Stateless Comment: The eGFR is not validated for use in drug dosing adjustments.Continue to use estimated creatinine clearance per dosing reference text.Please contact the Clinical Pharmacist for questions. Specimen Blood Performing Organization Address City/State/Zipcode Phone Number [facility] [address] [place] [address] * PTT (APTT) (11/28/2018 5:33 AM CDT) APTT 20.1 (L) 24.0 - 36.5 SEC [facility] Specimen Blood Performing Organization Address City/[facility]/Zipcode Phone Number [facility] [address] [place] [address] * PROTIME INR (PT) (11/28/2018 5:33 AM CDT) INR 1.2 0.8 - 1.2 [facility] Specimen Blood Performing Organization Address City/[facility]/Zipcode Phone Number [facility] [address] [place] [address] * CBC AND DIFF CELLULAR THERAPEUTICS (11/28/2018 5:33 AM CDT) White Blood 4.2 (L) 4.5 - 11.0 K/UL [facility] Cells RBC 2.48 (L) 4.4 - 5.5 M/UL [facility] Hemoglobin 9.3 (L) 13.5 - 16.5 GM/DL [facility] Hematocrit 26.3 (L) 40 - 50 % [facility] MCV 105.7 (H) 80 - 100 FL [facility] MCH 37.5 (H) 26 - 34 PG [facility] MCHC 35.5 32.0 - 36.0 G/DL [facility] RDW 16.5 (H) 11 - 15 % MAIN LAB Platelet Count 38 (L) 150 - 400 K/UL [facility] MPV 8.6 7 - 11 FL [facility] Nucleated RBCs 1 K/UL [facility] MAIN [...] Count Manual Specimen Blood Performing Organization Address City/[facility]/Zipcode Phone Number MAIN LAB [address] [place] [address] * LDH-LACTATE DEHYDROGENASE (11/27/2018 6:06 AM CDT) Lactate 193 100 - 210 U/L MAIN LAB Dehydrogenase Specimen Blood Performing Organization Address City/[facility] Phone Number MAIN LAB [address] [place] [address] * URIC ACID (11/27/2018 6:06 AM CDT) Uric Acid 6.1 4.0 - 8.0 MG/DL MAIN LAB Specimen Blood Performing Organization Address [facility] Phone Number MAIN LAB [address] [place] [address] * FIBRINOGEN (11/27/2018 6:06 AM CDT) Fibrinogen 450 (H) 200 - 400 MG/DL MAIN LAB Specimen Blood Performing Organization Address City/[facility] Phone Number MAIN LAB [address] [place] [address] * PHOSPHORUS CELLULAR THERAPEUTICS (11/27/2018 6:06 AM CDT) Phosphorus 2.9Comment: NOTE NEW REFERENCE 2.0 - 4.5 MG/DL MAIN LAB RANGES Specimen Blood Performing Organization Address City/[facility]/Zipcode Phone Number MAIN LAB [address] [place] [address] * MAGNESIUM CELLULAR THERAPEUTICS (11/27/2018 6:06 AM CDT) Magnesium 2.0 1.6 - 2.6 mg/dL MAIN LAB Specimen Blood Performing Organization Address City/[facility]/Zipcode Phone Number MAIN LAB [address] [place] [address] * COMPREHENSIVE METABOLIC PANEL CELLULAR THERAPEUTICS (11/27/2018 [...] LAB CO2 22 21 - 30 MMOL/L [facility] ALT (SGPT) 25 7 - 56 U/L [facility] Anion Gap 7 3 - 12 MAIN LAB eGFR Non 54 (L) >60 mL/min [facility] Comment: Stateless The eGFR is not validated for use in drug dosing adjustments.Continue to use estimated creatinine clearance per dosing reference text.Please contact the Clinical Pharmacist for questions. eGFR >60 >60 mL/min [facility] Stateless Comment: The eGFR is not validated for use in drug dosing adjustments.Continue to use estimated creatinine clearance per dosing reference text.Please contact the Clinical Pharmacist for questions. Specimen Blood Performing Organization Address [facility]/Zipcode Phone Number [facility] [address] [place] [address] * PTT (APTT) (11/27/2018 6:06 AM CDT) APTT 23.6 (L) 24.0 - 36.5 SEC [facility] Specimen Blood Performing Organization Address [facility]/Zipcode Phone Number [facility] [address] [place] [address] * PROTIME INR (PT) (11/27/2018 6:06 AM CDT) INR 1.1 0.8 - 1.2 [facility] Specimen Blood Performing Organization Address [facility]/Zipcode Phone Number [facility] MAIN LAB [address] [place] [address] * CBC AND DIFF CELLULAR THERAPEUTICS (11/27/2018 6:06 AM CDT) Pathologist [facility] White Blood 2.0 (L) 4.5 - 11.0 [...] Count Manual Specimen Blood Performing Organization Address City/[facility]/Zipcode Phone Number MAIN LAB [address] [place] [address] * VRE SCREEN (11/26/2018 10:00 PM CDT) Battery Name VRE SCREEN MAIN LAB Specimen PERIRECTAL SWAB [facility] MAIN LAB Description Special NONE MAIN LAB Requests Culture NO VRE ISOLATED MAIN LAB Report Status FINAL MAIN LAB 11/28/2018 Specimen Perirectal Swab Performing Organization Address City/[facility]/Zipcode Phone Number MAIN LAB [address] [place] [address] * CULTURE-BLOOD W/SENSITIVITY (11/26/2018 9:55 PM CDT) Battery Name BLOOD CULTURE MAIN LAB Specimen BLOOD MAIN LAB Description RIGHT HAND Special NONE [facility] MAIN LAB Requests Culture NO GROWTH 5 DAYS MAIN LAB Report Status FINAL MAIN LAB 12/02/2018 Specimen Blood Performing Organization Address City/[facility]/Zipcode Phone Number [facility] MAIN [facility] [address] [place] [address] * FIBRINOGEN (11/26/2018 9:49 PM CDT) Fibrinogen 449 (H) 200 - 400 MG/DL [facility] MAIN LAB Performing Organization Address City/[facility]/Zipcode Phone Number [facility] MAIN LAB [address] [place] [address] * CULTURE-BLOOD W/SENSITIVITY (11/26/2018 9:43 PM CDT) Battery Name BLOOD CULTURE MAIN LAB Specimen BLOOD MAIN LAB Description LEFT HAND Special NONE MAIN LAB Requests Culture NO GROWTH 5 DAYS MAIN LAB Report Status FINAL MAIN LAB 12/02/2018 Specimen Blood Performing Organization Address City/[facility] Phone Number [facility] [address] [place] [address] * 2-D + DOPPLER ECHOCARDIOGRAM (11/26/2018 2:57 [...] PV Odette Lipari, RDCS Definity OTHER OUTSIDE CHANGE AGENT LAB FS 43.37 28 - 44 % OTHER OUTSIDE LAB EF 73.72 % OTHER OUTSIDE LAB LV mass 145.91 96 - 200 g OTHER OUTSIDE LAB RWT 0.52 <=0.42 OTHER OUTSIDE LAB Aortic valve 1.22 cm2 OTHER OUTSIDE area= LAB AV index 0.26 OTHER OUTSIDE (unga) LAB E/A ratio 0.66 OTHER OUTSIDE LAB LVOT area 3.80 cm2 OTHER OUTSIDE LAB LVOT stroke 72.23 cm3 OTHER OUTSIDE volume LAB TV rest 33 mmHg OTHER OUTSIDE pulmonary LAB artery pressure E/E' ratio 6.50 OTHER OUTSIDE LAB Right Heart 0.136 m/s OTHER OUTSIDE Systolic TDI S' LAB Left Atrium 14.17 16 - 34 OTHER OUTSIDE Index LAB Cardiology Siemens [id number] OTHER OUTSIDE Ultrasound LAB Machine Left Ventricle [...] 12:37 PM CDT) Impressions Performed At [facility] - Hkidi-fz-Asfg Ultrasound KU RAD RESULTS Exam Date: 11/26/2018 Exam Type: POC ED US CARDIAC LTD Circulation Sales Representative: Joce Elizondo Attending: Hever Guillen Worksheet: ED-Cardiac Clinical Indication(s) for exam: Chest pain Views: Parasternal Long [place]: Limited Parasternal Short [place]: Limited Apical Four-Chamber: Limited Subxiphoid (4 chamber): Limited Subxiphoid IVC: Adequate Apical 2 Chamber: Not obtained Apical Long [place]: Not obtained Subxiphoid LV Short [place]: Not obtained Suprasternal Notch: Not obtained Other: [...] - 12/20/2018 10:10 PM CDT IMPRESSION [facility] - Ukswm-fj-Iqna Ultrasound Exam Date: 11/26/2018 Exam Type: POC ED US CARDIAC LTD Circulation Sales Representative: Joce Elizondo Attending: Hever Guillen Worksheet: ED-Cardiac Clinical Indication(s) for exam: Chest pain Views: Parasternal Long [place]: Limited Parasternal Short [place]: Limited Apical Four-Chamber: Limited Subxiphoid (4 chamber): Limited Subxiphoid IVC: Adequate Apical 2 Chamber: Not obtained Apical Long [place]: Not obtained Subxiphoid LV Short [place]: Not obtained Suprasternal Notch: Not obtained Other: [...] 2018 at 10:08:06 PM Performing Organization Address City/State/Zipconj Phone Number RAD RESULTS * URINALYSIS, MICROSCOPIC (11/26/2018 11:53 AM CDT) Pathologist [facility] [place] WBCs,UA 0-2 0 - 2 /HPF KU MAIN LAB RBCs,UA 0-2 0 - 3 /HPF KU MAIN LAB MucousUA TRACE [facility] MAIN LAB Specimen Urine - Urine Performing Organization Address [facility] Phone Number KU MAIN LAB [address] [place] [address] * URINALYSIS DIPSTICK (11/26/2018 11:53 AM CDT) Color,UA YELLOW [facility] MAIN LAB Turbidity,UA CLEAR CLEAR-CLEAR [facility] MAIN LAB Specific 1.014 1.003 - 1.035 K[facility] MAIN LAB [place]-Urine pH,UA 6.0 5.0 - 8.0 KU MAIN [...] Specimen Urine - Urine Performing Organization Address [facility] Phone Number KU MAIN LAB [address] [place] [address] * BNP POC ER (11/26/2018 11:52 AM CDT) BNP POC <15.0 0 - 100 PG/ML K[facility] MAIN LAB Performing Organization Address [facility] Phone Number KU MAIN LAB [address] [place] [address] * POC TROPONIN (11/26/2018 11:26 AM CDT) Jcrsupnd-I-FCQ 0.02 0.00 - 0.05 NG/ML [facility] MAIN LAB Performing Organization Address [facility] Phone Number [facility] [address] [place] [address] * URIC ACID (11/26/2018 11:24 AM CDT) Pathologist [facility] [place] Uric Acid 5.9 4.0 - 8.0 MG/DL K[facility] MAIN LAB Performing Organization Address [facility] Phone Number MAIN LAB [address] [place] [address] * LDH-LACTATE DEHYDROGENASE (11/26/2018 11:24 AM CDT) Lactate 323 (H) 100 - 210 U/L MAIN LAB Dehydrogenase Performing Organization Address [facility] Phone Number MAIN LAB [address] [place] [address] * PERIPHERAL SMEAR (11/26/2018 11:24 AM CDT) [...] indicated in this report. Performing Organization Address [facility] Phone Number MAIN LAB [address] [place] [address] * BLOOD BANK SAMPLE HOLD (11/26/2018 11:24 AM CDT) BB Sample hold IN LAB MAIN LAB Performing Organization Address [facility] Phone Number MAIN LAB [address] [place] [address] * LIPASE (11/26/2018 11:24 AM CDT) Lipase 10 (L) 11 - 82 U/L MAIN LAB Specimen Blood Performing Organization Address [facility] Phone Number MAIN LAB [address] [place] [address] * COMPREHENSIVE METABOLIC PANEL (11/26/2018 11:24 AM [...] (L) >60 mL/min KU MAIN LAB Comment: Stateless The eGFR is not validated for use in drug dosing adjustments.Continue to use estimated creatinine clearance per dosing reference text.Please contact the Clinical Pharmacist for questions. eGFR >60 >60 mL/min KU MAIN LAB Stateless Comment: The eGFR is not validated for use in drug dosing adjustments.Continue to use estimated creatinine clearance per dosing reference text.Please contact the Clinical Pharmacist for questions. Specimen Blood Performing Organization Address City/State/Zipcode Phone Number MAIN LAB [address] [place] [address] * CBC AND DIFF (11/26/2018 11:24 AM [...] CALLED TO AND READ BACK BY/TIME/TECH Orestes BEINTEZ MD/1330/OSIEL Normal RBC NORMAL [facility] MAIN LAB Morph Platelet MKD DEC [facility] MAIN LAB Estimate Absolute 0.96 (L) 1.8 - 7.0 K/UL [facility] MAIN LAB Neutrophil Count Manual Specimen Blood Performing Organization Address City/State/Zipcode Phone Number KU MAIN LAB [address] [place] [address] * ECG-SCAN (11/26/2018 12:00 AM CDT) Narrative [...] Until Thu11/26/18 at 1514, For Procedure, A machine load clerk may only administer Definity through a saline [...]
--- OUTSIDE RECORDS SUMMARY | 2019-01-08 13:32 | XMS REPORT | Encounter Summary ---
Author Author [facility] Organization [facility] Address Unknown Phone Unavailable Care Team Providers Care Drafter Heating And Ventilating Name Role Phone Aidan Caraballo PCP Reason for Visit * Auth/Cert Referred By Contact Referred To Contact Status Reason Specialty Diagnoses / Procedures Diagnoses Pancytopenia (HCC) Encounter Details Care Team Description Date Type Department Hever Guillen MD [address] [facility] [place] [address] 11/26/2018 Hospital [facility] [address] [address] Social History Date Tobacco Use [...]
--- OUTSIDE RECORDS SUMMARY | 2019-01-08 13:32 | XMS REPORT | Encounter Summary ---
Author Author [facility] Organization [facility] Address Unknown Phone Unavailable Care Team Providers Care Ophthalmic Technician Name Role Phone Aidan Caraballo PCP Reason for Visit * Auth/Cert Referred By Contact Referred To Contact Status Reason Specialty Diagnoses / Procedures Diagnoses Pancytopenia (HCC) Encounter Details Care Team Description Date Type Department Hever Guillen MD [address] [facility] [place] [address] 11/26/2018 [facility] [address] [facility] [address] [place] [address] Social History Date Tobacco Use [...]
--- OUTSIDE RECORDS SUMMARY | 2019-01-08 13:32 | XMS REPORT | Encounter Summary ---
Author Author [facility] Organization [facility] Address Unknown Phone Unavailable Care Team Providers Care Learning Program Manager Name Role Phone Aidan Caraballo PCP Reason for Referral * Transplant (Routine) Referred By Contact Referred To Contact Status Reason Specialty Diagnoses / Procedures Rodrigo Gallegos DO [address] [place] [address] Cc-Ww Bmt Exm [address] Pending Review Specialty Services Oncology Diagnoses Required Acute myeloid leukemia not having achieved remission (HCC) Encounter Details Care Team Description Date Type Department Rodrigo Gallegos DO [address] [place] [address] 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) 11/29/2018 Orders Only [facility] [address] [phone] Social History Date Tobacco Use Types Packs/Day [...]
[2019-01-08 14:04] LABS: BASOPHILS # (AUTO) 0.1 10^3/uL (0.0-0.1); BASOPHILS % (AUTO) 2 % (0-10); EOSINOPHILS % (AUTO) 1 % (0-10); HEMATOCRIT 21 % (40-54); HEMOGLOBIN 7.2 G/DL (13.3-17.7); LYMPHOCYTES # (AUTO) 0.6 X 10^3 (1.0-4.0); LYMPHOCYTES % (AUTO) 23 % (12-44); MEAN CORPUSCULAR HEMOGLOBIN 31 PG (25-34); MEAN CORPUSCULAR HGB CONC 34 G/DL (32-36); MEAN CORPUSCULAR VOLUME 91 FL (80-99); MEAN PLATELET VOLUME 9.5 FL (7.4-10.4); MONOCYTES % (AUTO) 2 % (0-12); NEUTROPHILS # (AUTO) 1.8 X 10^3 (1.8-7.8); NEUTROPHILS % (AUTO) 72 % (42-75); RED CELL DISTRIBUTION WIDTH 17.2 % (10.0-14.5); WHITE BLOOD COUNT 2.5 10^3/uL (4.3-11.0)
[2019-01-08 14:05] LABS: PLATELET COUNT 17 10^3/uL (130-400)
--- NOTE | 2019-01-08 14:07 | ED General ---
General Chief Complaint: Respiratory Problems Stated Complaint: SOA / COUGH Source of Information: Patient, Family Exam Limitations: No Limitations History of Present Illness Date Seen by Provider: Jan 08, 2019 Time Seen by Provider: 13:23 Initial Comments Here with report of family feeling weak and short of air. Recently treated for p neumonia and discharged yesterday. He has blood dyscrasia disorder as well as a variety of other problems. He states his white count is typically very low. Today he is increasingly short of breath despite being on 4 L of O2. Denies vomiting but does have touch of nausea. Does admit to decreased appetite. Denies chest pain or bleeding in stool or urine. Timing/Duration: 12-24 Hours, Getting Worse Severity: Moderate Associated Systoms: No Chest Pain; Cough, Fever/Chills, Loss of Appetite, Nausea/Vomiting, Shortness of Air, Weakness Allergies and Home Medications Allergies Coded Allergies: sulfamethoxazole (Verified Allergy, Unknown, Hives, 01/08/19) trimethoprim (Verified Allergy, Unknown, Hives, 01/08/19) Home Medications Acetaminophen 500 Mg Tablet, 1,000 MG PO Q4H PRN for PAIN-MILD, (Reported) Albuterol Sulfate 90 Mcg Aer.pow.ba, 2 PUFF IH QID PRN for SHORTNESS OF BREATH, (Reported) Fluconazole 150 Mg Tablet, 150 MG PO DAILY Prescribed by: MARLEN STRANGE on 01/07/19 1038 Folic Acid 1 Mg Tablet, 1 MG PO DAILY, (Reported) Levofloxacin 750 Mg Tablet, 750 MG PO DAILY Prescribed by: MARLEN STRANGE on 01/07/19 1038 Mometasone Furoate 220 Mcg Aer.pow.ba, 1 PUFF IH BID, (Reported) Omeprazole 20 Mg Tablet.dr, 20 MG PO BID, (Reported) Prednisone 5 Mg Tablet, 40 MG PO DAILY TAKES 8 (5MG) TABLETS Prescribed by: MARLEN STRANGE on 01/07/19 1038 Simvastatin 20 Mg Tablet, 20 MG PO HS, (Reported) Temazepam 30 Mg Capsule, 30 MG PO HS, (Reported) Tiotropium [place] 4 Gm Mist.inhal, 2 PUFF IH DAILY, (Reported) Patient Home Medication List Home Medication List Reviewed: Yes Review of Systems Review of Systems Constitutional: see HPI, chills, fever EENTM: no symptoms reported Respiratory: see HPI, dyspnea on exertion, hemoptysis (small amount of blood in the sputum occasionally when coughing.) Gastrointestinal: No abdominal pain, No nausea, No vomiting Genitourinary: no symptoms reported Musculoskeletal: no symptoms reported Skin: no symptoms reported All Other Systems Reviewed Negative Unless Noted: Yes Past Owlbkma-Vanvru-Wlumvw Hx Past Med/Social Hx: Reviewed Nursing Past Med/Soc Hx Patient Social History Alcohol Use: Denies Use Recreational Drug Use: No Smoking Status: Former Smoker Former Smoker, Quit: January 06, 2013 2nd Hand Smoke Exposure: No Recent Foreign Travel: No Contact w/Someone Who Travel: No Recent Hopitalizations: No Physical Abuse: No Sexual Abuse: No Mistreated: No Fear: No Immunizations Up To Date PED Vaccines UTD: No Date of Pneumonia Vaccine: December 30, 2016 Seasonal Allergies Seasonal Allergies: No Past Medical History Surgeries: Yes (R lower lobectomy, hemorrhoidectomy, port) Tonsillectomy Respiratory: Yes (lung cancer, wears oxygen ) COPD, Emphysema Cardiac: Yes (aortic valve stenosis) Hypertension Neurological: No Genitourinary: Yes (mild kidney disease) Gastrointestinal: No Musculoskeletal: No Endocrine: No HEENT: Yes Cataract Cancer: Yes (myelodysplastic syndrome) Lung Did You Recieve Any Treatments: Yes What Type of Treatment Did You: Chemotherapy, Surgical Intervention Psychosocial: No Integumentary: No Blood Disorders: Yes (anemia, recent blood transfusion) Family Medical History Reviewed Nursing Family Hx No Pertinent Family Hx Physical Exam-Suspected Sepsis Physical Exam Vital Signs Vital Signs - First Documented 01/08/19 13:21 Temp 98.4 Pulse 116 Resp 22 B/P (MAP) 94/74 (81) Pulse Ox 96 O2 Delivery Nasal Cannula O2 Flow Rate 3.00 FiO2 96 Capillary Refill : Height, Weight, BMI Height: 6'0.00" Weight: 228lbs. 2.0oz. 103.835119lz; 29.4 BMI Method:Stated General Appearance: WD/WN, Mild Distress HEENT: PERRL/EOMI, Pharynx Normal Neck: Non Tender, Supple Respiratory: Crackles, Decreased Breath Sounds Cardiovascular: No Murmur, Tachycardia Gastrointestinal: Non Tender, Soft Back: Normal Inspection, No CVA Tenderness, No Vertebral Tenderness Extremity: Normal Range of Motion, Pedal Edema (1+ to mid tibia bilaterally) Neurologic/Psychiatric: Alert, Oriented x3 Skin: normal color, warm/dry Focused Exam Lactate Level 01/08/19 13:55: Lactic Acid Level 4.60*H 01/08/19 15:52: Lactic Acid Level Laboratory Tests Test 01/08/19 13:55 01/08/19 15:52 Lactic Acid Level 4.60 MMOL/L (0.50-2.00) *H Progress/Results/Core Measures Suspected Sepsis SIRS Temperature: Pulse: Respiratory Rate: Laboratory Tests 01/08/19 13:55: White Blood Count 2.5L Blood Pressure / Mean: 01/08/19 13:55: Lactic Acid Level 4.60*H 01/08/19 15:52: Laboratory Tests 01/08/19 13:55: Creatinine 0.94, INR Comment 1.1, Platelet Count 17*L, Total Bilirubin 1.1H Results/Orders Lab Results Laboratory Tests Test 01/08/19 13:55 01/08/19 15:22 01/08/19 15:52 Range/Units White Blood Count 2.5 L 4.3-11.0 10^3/uL Red Blood Count 2.29 L 4.35-5.85 10^6/uL Hemoglobin 7.2 L 13.3-17.7 G/DL Hematocrit 21 L 40-54 % Mean Corpuscular Volume 91 80-99 FL Mean Corpuscular Hemoglobin 31 25-34 PG Mean Corpuscular Hemoglobin Concent 34 32-36 G/DL Red Cell Distribution Width 17.2 H 10.0-14.5 % Platelet Count 17 *L 130-400 10^3/uL Mean Platelet Volume 9.5 7.4-10.4 FL Neutrophils (%) (Auto) 72 42-75 % Lymphocytes (%) (Auto) 23 12-44 % Monocytes (%) (Auto) 2 0-12 % Eosinophils (%) (Auto) 1 0-10 % Basophils (%) (Auto) 2 0-10 % Neutrophils # (Auto) 1.8 1.8-7.8 X 10^3 Lymphocytes # (Auto) 0.6 L 1.0-4.0 X 10^3 Monocytes # (Auto) 0.0 0.0-1.0 X 10^3 Eosinophils # (Auto) 0.0 0.0-0.3 10^3/uL Basophils # (Auto) 0.1 0.0-0.1 10^3/uL Prothrombin Time 14.8 H 12.2-14.7 SEC INR Comment 1.1 0.8-1.4 Activated Partial Thromboplast Time 28 24-35 SEC Sodium Level 135 135-145 MMOL/L Potassium Level 3.0 L 3.6-5.0 MMOL/L Chloride Level 102 98-107 MMOL/L Carbon Dioxide Level 21 21-32 MMOL/L Anion Gap 12 5-14 MMOL/L Blood Urea Nitrogen 27 H 7-18 MG/DL Creatinine 0.94 0.60-1.30 MG/DL Estimat Glomerular Filtration Rate > 60 BUN/Creatinine Ratio 29 Glucose Level 178 H 70-105 MG/DL Lactic Acid Level 4.60 *H 0.50-2.00 MMOL/L Calcium Level 8.0 L 8.5-10.1 MG/DL Corrected Calcium 8.6 8.5-10.1 MG/DL Total Bilirubin 1.1 H 0.1-1.0 MG/DL Aspartate Amino Transf (AST/SGOT) 36 H 5-34 U/L Alanine Aminotransferase (ALT/SGPT) 67 H 0-55 U/L Alkaline Phosphatase 67 40-136 U/L Troponin I 0.048 H <0.028 NG/ML B-Type Natriuretic Peptide 226.1 H <100.0 PG/ML Total Protein 5.2 L 6.4-8.2 GM/DL Albumin 3.2 3.2-4.5 GM/DL Urine Color YELLOW Urine Clarity CLEAR Urine pH 7 5-9 Urine Specific [place] 1.005 L 1.016-1.022 Urine Protein 1+ H NEGATIVE Urine Glucose (UA) NEGATIVE NEGATIVE Urine Ketones NEGATIVE NEGATIVE Urine Nitrite NEGATIVE NEGATIVE Urine Bilirubin NEGATIVE NEGATIVE Urine Urobilinogen 4 H NORMAL MG/DL Urine Leukocyte Esterase 1+ H NEGATIVE Urine RBC (Auto) NEGATIVE NEGATIVE Urine RBC NONE /HPF Urine WBC 0-2 /HPF Urine Crystals NONE /LPF Urine Bacteria NEGATIVE /HPF Urine Casts NONE /LPF Urine Mucus SMALL H /LPF Urine Culture Indicated NO My Orders Orders - HUY HOLGUIN MD Cbc With Automated Diff (01/08/19 13:29) Comprehensive Metabolic Panel (01/08/19 13:29) Blood Culture (01/08/19 13:29) Sputum Culture (01/08/19 13:29) Urinalysis (01/08/19 13:29) Urine Culture (01/08/19 13:29) Protime With Inr (01/08/19 13:29) Partial Thromboplastin Time (01/08/19 13:29) Chest 1 View, Ap/Pa Only (01/08/19 13:29) Ed Iv/Invasive Line Start (01/08/19 13:29) Ed Iv/Invasive Line Start (01/08/19 13:29) Ekg Tracing (01/08/19 13:29) Troponin I (01/08/19 13:29) Vital Signs Adult Sepsis Patie Q15M (01/08/19 13:29) O2 (01/08/19 13:29) Remove Rings In Anticipation O (01/08/19 13:29) Lactic Acid Analyzer (01/08/19 13:29) BNP (01/08/19 13:29) Ed Iv/Invasive Line Start (01/08/19 13:29) Ns Iv 500 Ml (Sodium Chloride 0.9%) (01/08/19 13:29) Albuterol/Ipra Inhalation Soln (Duoneb I (01/08/19 14:45) Svn Small Volume Nebulizer (01/08/19 14:43) Albuterol/Ipra Inhalation Soln (Duoneb I (01/08/19 14:40) Piperacillin Sodium/Tazobactam (Zosyn Vi (01/08/19 15:45) Medications Given in ED Current Medications Medications Dose Ordered Sig/Laurie Route Start Time Stop Time Status Last Admin Dose Admin Albuterol/ Ipratropium 3 ml ONCE ONCE INH 01/08/19 14:45 01/08/19 14:46 DC 01/08/19 15:00 3 ML Sodium Chloride 500 ml @ 0 mls/hr Q0M ONCE IV 01/08/19 13:29 01/08/19 13:31 DC 01/08/19 14:07 500 MLS/HR Vital Signs/I&O 01/08/19 01/08/19 01/08/19 13:21 13:21 15:00 Temp 98.4 Pulse 116 Resp 22 B/P (MAP) 94/74 (81) Pulse Ox 96 96 97 O2 Delivery Nasal Cannula Nasal Cannula Nasal Cannula O2 Flow Rate 3.00 3.00 4.00 FiO2 96 Capillary Refill : Progress Note : Progress Note Seen and evaluated. IV, labs, cultures and lactic acid ordered. Sepsis protocol initiated. 1501 I have had a long discussion with the patient and family regarding the current disease process. He does have findings consistent with worsening pneumonia. He is just discharged yesterday. He has advanced myelodysplastic syndrome and that is complicating his care as well as his illness. Patient previously full code and was considering heart valve replacement and has appointment on January 19 with [facility] for that procedure. He made at less than 24 hours after the hospital after discharge for treatment of his pneumonia and artery has worsening pneumonia now. We did discuss quality verses quantity of days and goals of care as well as end-of-life care. They have been discussing (he and his ) quality of care and hospice as a potential if this is not improving. We did discuss this as an option. He is septic and does have lactic acid greater than 4 but high-volume fluid resuscitation would be quite dangerous given his other underlying disorders. He did receive normal saline 500 mL IV and we'll gently hydrate him. I will consult palliative care to discuss with him regarding his goals of care and given information on hospice if they choose to pursue that avenue. Patient states that he would like to be able to get strong enough to go home for a few days at least to get his affairs in order and his agrees. At this point we will continue therapy with the idea that we might be able to get some improvement to meet this goal but patient would like to change his status to DO NOT RESUSCITATE. He would like to continue all indicated therapy is otherwise at this point. He and his are open to the hospitalist discussion. I did discuss the case with Dr. Johsnon and he accepts patient for admission, inpatient status. We will continue Zosyn and fluconazole as well as prednisone. 1540: I have discussed the case with Dr. Alfred and he accepts patient in consult. 1554: I did discuss the case with Dr. Knutson and he accepts patient in consult for oncology. All findings and concerns discussed with patient and family who agree with plan. Patient off sepsis protocol for palliative care. ECG Initial ECG Impression Date: Jan 08, 2019 Initial ECG Impression Time: 13:29 Initial ECG Rate: 105 Initial ECG Rhythm: S.Tach Initial ECG Comparisson: Unchanged Comment Sinus tachycardia with normal axis. No evidence of ST elevation MA. Interpreted by me. Diagnostic Imaging Diagonstic Imaging: Xray Plain Films/CT/US/NM/MRI: chest Comments [facility] [place], [place] NAME: KELLY BERMEO [facility] REC#: [id number] PT STATUS: REG ER : 1945 PHYSICIAN: HUY HOLGUIN MD ADMIT DATE: 01/08/19/ER Draft Date of Exam:01/08/19 CHEST 1 VIEW, AP/PA ONLY INDICATION: Shortness of air and cough. TIME OF EXAM: 2:33 p.m. COMPARISON: Correlation is made with prior study from 01/06/2019. EXAMINATION: Single view of the chest was obtained. FINDINGS: Right chest wall port is overlying the SVC. Extensive infiltrate throughout the right lung persists. There may be slightly less consolidation in the right upper lobe. There is some infiltrate in the left mid and lower lung field which appear slightly more prominent on today's study. There is a small right effusion. No pneumothorax is seen. IMPRESSION: Bilateral infiltrates slightly increased in the left base when compared to examination of two days earlier. Dictated on workstation # [id number] Dict: 01/08/19 1439 Trans: 01/08/19 1443 [facility] [id number] Interpreted by: TERI LEVINE MD Electronically signed by: Reviewed: Reviewed by Me Departure Communication (Admissions) Time/Spoke to Admitting Phy: 15:01 Time/Spoke to Consulting Phy: 15:40 Impression Primary Impression: Pneumonia Qualified Codes: J18.1 - Lobar pneumonia, unspecified organism Additional Impression: Myelodysplastic syndrome Disposition: ADMITTED INPATIENT Condition: Stable Admissions Decision to Admit Reason: Admit from ER (General) Decision to Admit/Date: Jan 08, 2019 Time/Decision to Admit Time: 15:01 Departure-Patient Inst. Referrals: EZRA MERAZ DO (PCP/Family) Primary Care Physician HUY HOLGUIN MD Jan 08, 2019 14:07
[2019-01-08 14:19] LABS: INR 1.1 (0.8-1.4); PROTHROMBIN TIME PATIENT 14.8 SEC (12.2-14.7)
--- NOTE | 2019-01-08 14:20 | NUR ---
in room to check on patient. denies needs at this time.
[2019-01-08 14:26] LABS: ALANINE AMINOTRANSFERASE 67 U/L (0-55); ALBUMIN 3.2 GM/DL (3.2-4.5); ALKALINE PHOSPHATASE 67 U/L (40-136); BILIRUBIN,TOTAL 1.1 MG/DL (0.1-1.0); BUN/CREATININE RATIO 29; CARBON DIOXIDE 21 MMOL/L (21-32); CHLORIDE 102 MMOL/L (98-107); CREATININE SERUM 0.94 MG/DL (0.60-1.30); GFR ESTIMATED > 60; GLUCOSE 178 MG/DL (70-105); SODIUM 135 MMOL/L (135-145); TOTAL PROTEIN 5.2 GM/DL (6.4-8.2)
--- NOTE | 2019-01-08 14:30 | NUR ---
in room to speak to patient and his .
[2019-01-08] MEDS ORDERED: RT-ALBUTEROL/IPRATROPIUM 3 ML (DUONEB) VIAL ONE (14:40)
--- NOTE | 2019-01-08 14:44 | Diagnostic Imaging Report ---
INDICATION: Shortness of air and cough. TIME OF EXAM: 2:33 p.m. COMPARISON: Correlation is made with prior study from 01/06/2019. EXAMINATION: Single view of the chest was obtained. FINDINGS: Right chest wall port is overlying the SVC. Extensive infiltrate throughout the right lung persists. There may be slightly less consolidation in the right upper lobe. There is some infiltrate in the left mid and lower lung field which appear slightly more prominent on today's study. There is a small right effusion. No pneumothorax is seen. IMPRESSION: Bilateral infiltrates slightly increased in the left base when compared to examination of two days earlier. Dictated by: Dictated on workstation # [id number]
[2019-01-08] MEDS ORDERED: RT-ALBUTEROL/IPRATROPIUM 3 ML (DUONEB) VIAL INH ONE (14:45)
--- NOTE | 2019-01-08 15:15 | NUR ---
out of room at this time.
[2019-01-08] MEDS ORDERED: PIPERACILLIN SODIUM/TAZOBACTAM 4.5 GM in NS (IVPB) 100 ML IV ONE (15:45)
[2019-01-08 15:46] LABS: BILIRUBIN,URINE NEGATIVE (NEGATIVE); CLARITY,URINE CLEAR; COLOR,URINE YELLOW; GLUCOSE, URINE (UA) NEGATIVE (NEGATIVE); KETONES,URINE NEGATIVE (NEGATIVE); LEUKOCYTE ESTERASE ,URINE 1+ (NEGATIVE); NITRITE,URINE NEGATIVE (NEGATIVE); PH,URINE 7 (5-9); PROTEIN,URINE 1+ (NEGATIVE); UROBILINOGEN,URINE 4 MG/DL (NORMAL)
[2019-01-08 16:00] LABS: BACTERIA,URINE NEGATIVE /HPF; WBC,URINE 0-2 /HPF
--- NOTE | 2019-01-08 16:00 | NUR ---
in room to see patient and assess needs. patietn and spouse deny needs at this time. will continue to monitor.
--- NOTE | 2019-01-08 16:33 | NUR ---
attempted to call report to Kailey RN however she was unavailable at this time, Nallely states she will have her call this RN when available. reported to patient and spouse room number of [phone] and Kailey will be his nurse. patient denies needs at this time, will continue to monitor.
--- NOTE | 2019-01-08 16:53 | NUR ---
KELYL BERMEO admitted to room 421-1, with an admitting diagnosis of Pnuemonia, on 01/08/19 from [place] via wheelchair, accompanied by staff and .KELLY BERMEO introduced to surroundings, call light, bed controls, phone, TV, temperature control, lights, meal times, smoking policy, visitor policy, side rail policy, bathrooms and showers. Patient Rights given to patient in the handbook. KELLY BERMEO verbalizes understanding that [facility] is not responsible for the loss or damage to any personal effects or valuables that are kept in the patients posession during their hospitalization. The following Patient Care Plans were discussed with the pt: Discharge Planning. KELLY BERMEO verbalizes understanding of Interdisciplinary Patient Education. Patient and/or family were informed about the Rapid Response Team and its purpose.
[2019-01-08 17:20] VITALS: BP 105/86
[2019-01-08 17:25] VITALS: BP 115/68
[2019-01-08] MEDS ORDERED: ONDANSETRON 4 MG/2 ML (SDV) Z0FRAN IV PRN (18:30)
[2019-01-08] MEDS ORDERED: morphine INJ 4 MG/ML 1 ML (VIAL/SYRINGE) IV PRN (18:30)
[2019-01-08 19:55] VITALS: BP 111/71
[2019-01-08 19:58] VITALS: BP 115/68
[2019-01-08] MEDS: predniSONE 20 MG TAB PO SCH (19:59)
[2019-01-08] MEDS: NS W/KCL 20 MEQ/L 1,000 ML IV SCH (19:59)
[2019-01-08] MEDS ORDERED: PIPERACILLIN/TAZO 4.5 GM VIAL (ZOSYN) IV ONE (20:02)
[2019-01-08] MEDS ORDERED: NS (IVPB) 200 ML ONE (20:02)
[2019-01-08] MEDS: RT-ALBUTEROL/IPRATROPIUM 3 ML (DUONEB) VIAL INH SCH (20:45)
[2019-01-08] MEDS: fluCOnazole (DIFLUCAN) 100 MG TAB PO SCH (20:55)
[2019-01-08] MEDS: PIPERACILLIN/TAZO 4.5 GM/NS 100 ML IV SCH ×2 (20:55)
--- OUTSIDE RECORDS SUMMARY | 2019-01-08 21:07 | XMS REPORT | Clinical Summary ---
Author Author [facility] Organization [facility] Address Unknown Phone Unavailable Care Team Providers Care Natural Resources Engineer Name Role Phone Aidan Caraballo PCP Ramiro Collazo MD Unavailable Source Comments Some departments are not documenting in the electronic medical record. If you d o not see the information that you expected, contact Release of Information in [facility] [employer] Information Management department at [phone] for further assistan ce in locating additional records.[facility] Allergies Comments Active Allergy Reactions Severity [...] and increased risk of infections. lives in [place], [place] and will need to be followed locally for treatments, supportive care and close monitoring. He was agreeable to establish care with Dr.Mickey Zafar In [place], [place]. We also discussed the option of best supportive care with palliative service. Patient would like to think about his options but he will proceed with hypomethylating agents for now locally. We will see him again in 2 to 4 months with repeat bone marrow biopsy and aspiration at [facility] to evaluate his response. Depending on [...] Address City/State/Zipcode Phone Number MAIN LAB [address] [place] [address] * COMPREHENSIVE METABOLIC PANEL CELLULAR THERAPEUTICS (12/01/2018 [...] (L) >60 mL/min [facility] MAIN LAB Comment: Greek The eGFR is not validated for use in drug dosing adjustments.Continue to use estimated creatinine clearance per dosing reference text.Please contact the Clinical Pharmacist for questions. eGFR >60 >60 mL/min [facility] MAIN LAB Greek Comment: The eGFR is not validated for use in drug dosing adjustments.Continue to use estimated creatinine clearance per dosing reference text.Please contact the Clinical Pharmacist for questions. Specimen Blood Performing Organization Address City/State/Zipcode Phone Number MAIN LAB [address] [place] [address] * CBC AND DIFF CELLULAR THERAPEUTICS (12/01/2018 [...] LAB MPV 8.9 7 - 11 [place] [facility] Segmented 34 (L) 41 - 77 [...] Count Manual Specimen Blood Performing Organization Address City/[facility] Phone Number MAIN LAB [address] [place] [address] * PHOSPHORUS CELLULAR THERAPEUTICS (11/30/2018 5:32 AM CDT) Only the most recent of 4 results within the time period is included. Phosphorus 3.1Comment: NOTE NEW REFERENCE 2.0 - 4.5 MG/DL MAIN LAB RANGES Specimen Blood Performing Organization Address [facility] Phone Number MAIN LAB [address] [place] [address] * PTT (APTT) (11/30/2018 5:32 AM CDT) Only the most recent of 4 results within the time period is included. APTT 26.8 24.0 - 36.5 SEC MAIN LAB Specimen Blood Performing Organization Address City/[facility] Phone Number MAIN LAB [address] [place] [address] * PROTIME INR (PT) (11/30/2018 5:32 AM CDT) Only the most recent of 4 results within the time period is included. INR 1.3 (H) 0.8 - 1.2 MAIN LAB Specimen Blood Performing Organization Address City/[facility]/Zipcode Phone Number MAIN LAB [address] [place] [address] * FIBRINOGEN (11/30/2018 5:32 AM CDT) Only the most recent of 5 results within the time period is included. Fibrinogen 502 (H) 200 - 400 MG/DL [facility] MAIN LAB Specimen Blood Performing Organization Address [facility] Phone Number [facility] MAIN LAB [address] [place] [address] * URIC ACID (11/30/2018 5:32 AM CDT) Only the most recent of 5 results within the time period is included. Uric Acid 3.4 (L) 4.0 - 8.0 MG/DL [facility] MAIN LAB Specimen Blood Performing Organization Address [facility] Phone Number [facility] MAIN LAB [address] [place] [address] * LDH-LACTATE DEHYDROGENASE (11/30/2018 5:32 AM CDT) Only the most recent of 5 results within the time period is included. Lactate 188 100 - 210 U/L [facility] MAIN LAB Dehydrogenase Specimen Blood Performing Organization Address [facility] Phone Number [facility] MAIN LAB [address] [place] [address] * HLA CLASS 1A 1B 1C AND 2 PHENO HIGH RES (11/29/2018 11:20 PM CDT) Only the most recent of 2 results within the time period is included. Pathologist [facility] HLA Class 1A 1B Report Available in Epic REFERENCE LAB 1C and 2 Pheno High Res Specimen Blood Performing Organization Address [facility] Phone Number REFERENCE LAB REFERENCE LAB See [...] (L) >60 mL/min [facility] MAIN LAB Comment: Greek The eGFR is not validated for use in drug dosing adjustments.Continue to use estimated creatinine clearance per dosing reference text.Please contact the Clinical Pharmacist for questions. eGFR >60 >60 mL/min [facility] MAIN LAB Greek Comment: The eGFR is not validated for use in drug dosing adjustments.Continue to use estimated creatinine clearance per dosing reference text.Please contact the Clinical Pharmacist for questions. Specimen Blood Performing Organization Address [facility] Phone Number MAIN LAB [address] [place] [address] * HLA ANTIBODY ID (11/29/2018 6:03 PM CDT) Pathologist [facility] HLA Antibody ID Report Available in [employer] REFERENCE LAB Performing Organization Address [facility] Phone Number REFERENCE LAB REFERENCE LAB See results for address. * HLA ANTIBODY SCREEN (11/29/2018 6:03 PM CDT) HLA Antibody Report Available in [employer] REFERENCE LAB Screen Specimen Blood Narrative Performed At Performing Organization Address City/[facility] Phone Number REFERENCE LAB REFERENCE LAB See results for address. * CMV AB IGG (11/29/2018 6:03 PM CDT) CMV, IgG NEG MAIN LAB Specimen Blood Performing Organization Address [facility] Phone Number MAIN LAB [address] [place] [address] * URINALYSIS, MICROSCOPIC (11/29/2018 12:15 PM CDT) Only the most recent of 2 results within the time period is included. WBCs,UA NONE 0 - 2 /HPF [facility] MAIN LAB RBCs,UA NONE 0 - 3 /HPF [facility] MAIN LAB Specimen Urine - Urine Performing Organization Address [facility] Phone Number MAIN LAB [address] [place] [address] * URINALYSIS DIPSTICK (11/29/2018 12:15 PM CDT) Only the most recent of 2 results within the time period is included. Color,UA YELLOW [facility] MAIN LAB Turbidity,UA CLEAR CLEAR-CLEAR [facility] MAIN LAB Specific 1.006 1.003 - 1.035 [facility] MAIN LAB [place]-Urine pH,UA 6.0 5.0 - 8.0 [facility] MAIN [...] Specimen Urine - Urine Performing Organization Address [facility] Phone Number MAIN LAB [address] [place] [address] * SODIUM-URINE RANDOM (11/29/2018 12:15 PM CDT) Sodium, Random 41 MMOL/L MAIN LAB Specimen Urine - Urine Performing Organization Address [facility] Phone Number MAIN LAB [address] [place] [address] * OSMOLALITY-URINE RANDOM (11/29/2018 12:15 PM CDT) Osmolality-Urin 236 50 - 1,400 MOS/KG MAIN LAB e Specimen Urine - Urine Performing Organization Address [facility] Phone Number MAIN LAB [address] [place] [address] * BONE MARROW (11/29/2018 11:47 AM CDT) PATHOLOGY [facility] MAIN LAB [facility] [email or web address] Department of Pathology and Laboratory Medicine [address] [place] [address] Surgical Pathology Office:[phone] :[phone] SURGICAL PATHOLOGY REPORT NAME: KELLY YOST SURG PATH #: [id number] MR #: [id number] ALT ID #: LOCATION: DISCHARGED DATE OF [...] of Pathology and Laboratory Medicine of the [facility] ([employer]) in compliance with [...] of Pathology and Laboratory Medicine of the [facility].It has not been cleared or approved by the FDA.The FDA has determined that such clearance or approval is not necessary. Performing Organization Address City/State/Zipcode Phone Number [facility] [address] [place] [address] * CHROMOSOMES FISH DNA PROBE (11/29/2018 11:16 AM CDT) Chromosomes Cytogenetics Report Available [facility] Fish DNA Probe in [facility] Specimen Bone Marrow Performing Organization Address City/[facility]/Zipcode Phone Number [facility] [address] [place] [address] * CHROMOSOMES BONE MARROW (11/29/2018 11:16 AM CDT) Pathologist [facility] Chromosomes Cytogenetics Report Available [facility] Bone Marrow in [facility] Specimen Bone Marrow Performing Organization Address [facility] Phone Number [facility] [address] [place] [address] * HEME PANEL NGS 65 BLD OR BM (11/29/2018 11:10 AM CDT) Pathologist [facility] Heme Panel NGS Report Available in [facility] REFERENCE LAB 65 BLD or Bone Marrow Performing Organization Address [facility] Phone Number REFERENCE LAB REFERENCE LAB See results for address. * FLOW CYTOMETRY (11/29/2018 11:10 AM CDT) Pathologist [facility] PATHOLOGY [facility] LAB [facility] www.[employer] Kai Soliz MD, Director of Flow Cytometry Laboratory Department of Pathology and Laboratory Medicine [address] [place] [address] Surgical Pathology Office:[phone] :[phone] FLOW CYTOMETRY REPORT NAME: KELLY YOST SURG PATH #: [id number] MR #: [id number] SPECIMEN CLASS: LC BILLING #: [id number] ALT ID #:LOCATION: 42 DATE OF PROCEDURE: 11/29/2018 AGE:73 SEX: M DATE RECEIVED: 11/29/2018 : 1945TIME RECEIVED:12:01 PHYSICIAN: LÁZARO OLIVEIRA DATE OF REPORT: 11/29/2018 COPY TO: DO Maureen DECKER M.D. [facility] DATE OF PRINTIN11/29/2018 Material Received: A: [...] Panel Myeloid Associated Markers (% Positive Cells): ID81r=22; OK85a=8; CD13=80; CD14=1; CD15=5; CD33=66; CD64=9; TK781=92; cyMPO=42; cyMPO+CD34+=20 B Cell Associated Markers (% Positive Cells): CD19=5; CD20=4; atBY59=2; diOS56b=2 [place]=0; Lambda=1; [place]:Lambda ratio=0.0 T Cell Associated Markers (% Positive Cells): CD1a=0; CD2=1; sCD3=0; cyCD3=0; CD4=0; CD5=0; CD7=4; CD8=0 CD4:CD8 ratio=n/a Miscellaneous Markers (% Positive Cells): CD10=1; CD34=72; CD34+CD13+=65; CD34+CD117+=69; CD38=99; CD45= 20; CD56=31; SG325=50; HLA-DR=71; nTdT=0 Cell Viability (%):n/a Number of Cells Analyzed:10,000 Total Number of Markers: 31 Summary of Marker Combinations: Dr/33/34/13/123/45/56/15; 117/34/64/11b/45/14/11c; K/L/34/10/19/45/38/20; 2/7/4/3/1a/45/5/8; nTdt/cy22/34/cy3/cy79a/45/cyMP O/19 This test was developed and its performance characteristics determined by the [facility] Flow Cytometry Laboratory.It has not been cleared or approved by the U.S. Food and Drug Administration (FDA).The FDA has determined that such clearance or approval is not necessary. Performing Organization Address City/[facility]/Zipcode Phone Number [facility] [address] [place] [address] * LEUKEMIA/LYMPHOMA PNL, BONE MARROW (11/29/2018 11:10 AM CDT) Leuk/Lymph SEE PATHOLOGY REPORT MAIN LAB Interpretation Specimen/LLM BONE MARROW [facility] Specimen Bone Marrow Performing Organization Address [facility] Phone Number [facility] [address] [place] [address] * FE STAIN (11/29/2018 11:10 AM CDT) Bone Marrow FE SEE PATHOLOGY REPORT [facility] Specimen Bone Marrow - Bone Marrow Performing Organization Address [facility] Phone Number [facility] [address] [place] [address] * BONE MARROW ASP (11/29/2018 11:10 AM CDT) Bone Marrow Asp SEE PATHOLOGY REPORT MAIN LAB Specimen Bone Marrow - Bone Marrow Performing Organization Address [facility] Phone Number [facility] [address] [place] [address] * BONE MARROW BIOPSY (11/29/2018 11:10 AM CDT) Bone Marrow Bx SEE PATHOLOGY REPORT MAIN LAB Specimen Bone Marrow - Bone Marrow Performing Organization Address [facility] Phone Number [facility] [address] [place] [address] * OSMOLALITY (11/29/2018 5:56 AM CDT) Osmolality 276 (L) 280 - 307 MOSMOL/KG [facility] Performing Organization Address City/[facility]/Zipcode Phone Number [facility] MAIN LAB [address] [place] [address] * AMYLASE (11/29/2018 5:56 AM CDT) Amylase 39 24 - 100 U/L [facility] MAIN LAB Performing Organization Address City/[facility]/Zipcode Phone Number [facility] MAIN LAB [address] [place] [address] * VRE SCREEN (11/26/2018 10:00 PM CDT) Battery Name VRE SCREEN [facility] MAIN LAB Specimen PERIRECTAL SWAB MAIN LAB Description Special NONE [facility] MAIN LAB Requests Culture NO VRE ISOLATED [facility] MAIN LAB Report Status FINAL [facility] MAIN LAB 11/28/2018 Specimen Perirectal Swab Performing Organization Address City/[facility] Phone Number [facility] MAIN LAB [address] [place] [address] * CULTURE-BLOOD W/SENSITIVITY (11/26/2018 9:55 PM CDT) Only the most recent of 2 results within the time period is included. Battery Name BLOOD CULTURE MAIN LAB Specimen BLOOD MAIN LAB Description RIGHT HAND Special NONE MAIN LAB Requests Culture NO GROWTH 5 DAYS [facility] MAIN LAB Report Status FINAL [facility] MAIN LAB 12/02/2018 Specimen Blood Performing Organization Address [facility] Phone Number MAIN LAB [address] [place] [address] * 2-D + DOPPLER ECHOCARDIOGRAM (11/26/2018 2:57 [...] PV Odette Lipari, RDCS Definity OTHER OUTSIDE REGISTERED MEDICAL ASSISTANT LAB FS 43.37 28 - 44 % OTHER OUTSIDE LAB EF 73.72 % OTHER OUTSIDE LAB LV mass 145.91 96 - 200 g OTHER OUTSIDE LAB RWT 0.52 <=0.42 OTHER OUTSIDE LAB Aortic valve 1.22 cm2 OTHER OUTSIDE area= LAB AV index 0.26 OTHER OUTSIDE (sokaogon) LAB E/A ratio 0.66 OTHER OUTSIDE LAB LVOT area 3.80 cm2 OTHER OUTSIDE LAB LVOT stroke 72.23 cm3 OTHER OUTSIDE volume LAB TV rest 33 mmHg OTHER OUTSIDE pulmonary LAB artery pressure E/E' ratio 6.50 OTHER OUTSIDE LAB Right Heart 0.136 m/s OTHER OUTSIDE Systolic TDI S' LAB Left Atrium 14.17 16 - 34 OTHER OUTSIDE Index LAB Cardiology Siemens [id number] OTHER OUTSIDE Ultrasound LAB Machine Left Ventricle [...] 12:37 PM CDT) Impressions Performed At [facility] - Hdllx-an-Orug Ultrasound [facility] RAD RESULTS Exam Date: 11/26/2018 Exam Type: POC ED US CARDIAC LTD Energy And Conservation Technician: Joce Elizondo Attending: Hever Guillen Worksheet: ED-Cardiac Clinical Indication(s) for exam: Chest pain Views: Parasternal Long [place]il[place]: Limited Parasternal Short [place]il[place]: Limited Apical Four-Chamber: Limited Subxiphoid (4 chamber): Limited Subxiphoid IVC: Adequate Apical 2 Chamber: Not obtained Apical Long [place]: Not obtained Subxiphoid LV Short [place]il[place]: Not obtained Suprasternal Notch: Not obtained Other: [...] - 12/20/2018 10:10 PM CDT IMPRESSION [facility] - Owhwu-iz-Gfqy Ultrasound Exam Date: 11/26/2018 Exam Type: POC ED US CARDIAC LTD Energy And Conservation Technician: Joce Elizondo Attending: Hever Guillen Worksheet: ED-Cardiac Clinical Indication(s) for exam: Chest pain Views: Parasternal Long [place]il[place]: Limited Parasternal Short Shiloh: Limited Apical Four-Chamber: Limited Subxiphoid (4 chamber): Limited Subxiphoid IVC: Adequate Apical 2 Chamber: Not obtained Apical Long [place]il[place]: Not obtained Subxiphoid LV Short Shiloh: Not obtained Suprasternal Notch: Not obtained Other: [...] 2018 at 10:08:06 PM Performing Organization Address City/[facility]/Zipcode Phone Number RAD RESULTS * BNP POC ER (11/26/2018 11:52 AM CDT) Pathologist [facility] BNP POC <15.0 0 - 100 PG/ML MAIN LAB Performing Organization Address [facility] Phone Number MAIN LAB [address] [place] [address] * POC TROPONIN (11/26/2018 11:26 AM CDT) [facility] Tdljtgkf-D-QNZ 0.02 0.00 - 0.05 NG/ML MAIN LAB Performing Organization Address [facility] Phone Number MAIN LAB [address] [place] [address] * BLOOD BANK SAMPLE HOLD (11/26/2018 11:24 AM CDT) Pathologist [facility] BB Sample hold IN LAB MAIN LAB Performing Organization Address [facility] Phone Number MAIN LAB [address] [place] [address] * PERIPHERAL SMEAR (11/26/2018 11:24 AM CDT) Pathologist [facility] Peripheral OTHERS=BLASTS MAIN LAB Smear Pathologist INTERPRETED BY SAMSON VALENZUELA M.D. [facility] Signature By the PATH SIGNATURE ABOVE, I attest that I have personally formulated the final interpretation expressed in this report and that the above diagnosis is based upon my examination of the slides and/or other material indicated in this report. Performing Organization Address [facility] Phone Number MAIN LAB [address] [place] [address] * CBC AND DIFF (11/26/2018 11:24 AM CDT) Pathologist [facility] White Blood 2.9 (L) 4.5 - 11.0 [...] Count Manual Specimen Blood Performing Organization Address City/[facility]/Zipcode Phone Number MAIN LAB [address] [place] [address] * LIPASE (11/26/2018 11:24 AM CDT) Lipase 10 (L) 11 - 82 U/L MAIN LAB Specimen Blood Performing Organization Address City/[facility]/Zipcode Phone Number [facility] [address] [place] [address] * COMPREHENSIVE METABOLIC PANEL (11/26/2018 11:24 AM [...] (L) >60 mL/min [facility] MAIN LAB Comment: Greek The eGFR is not validated for use in drug dosing adjustments.Continue to use estimated creatinine clearance per dosing reference text.Please contact the Clinical Pharmacist for questions. eGFR >60 >60 mL/min [facility] MAIN LAB Greek Comment: The eGFR is not validated for use in drug dosing adjustments.Continue to use estimated creatinine clearance per dosing reference text.Please contact the Clinical Pharmacist for questions. Specimen Blood Performing Organization Address City/State/Zipcode Phone Number MAIN LAB [address] [place] [address] * PRANAY PATH MOLEC REF LAB SCAN [...] file. For more i nformation, please contact: [address] [address] Date Inactivated Comments Code Status Date Activated 12/01/2018 2:50 PM Full Code 11/26/2018 8:14 PM Provider has discussed Code Status Yes w/Patient or Family?
--- OUTSIDE RECORDS SUMMARY | 2019-01-08 21:08 | XMS REPORT | Encounter Summary ---
Author Author [facility] Organization [facility] Address Unknown Phone Unavailable Care Team Providers Care Contracts Officer Name Role Phone Aidan Caraballo PCP Ramiro Collazo MD Unavailable Reason for Referral * Test (Routine) Referred By Contact Referred To Contact Status Reason Specialty Diagnoses / Procedures Juancarlos Clark MD [address] [facility] [place] [address] [facility] [employer] [address] [address] No Auth Needed Cardiology Diagnoses Severe aortic stenosis P rocedures TRANSESOPHAGEAL ECHOCARDIOGRAM NC ECHO TRANSESOPHAG R-T 2D W/PRB IMG ACQUISJ I&R Encounter Details Care Team Description Date Type Department Monica Noel RN Aortic stenosis, moderate (Primary Dx); Severe aortic stenosis 12/28/2018 Pre-Admit [facility] [address] [facility] [place] [address] Social History Date Tobacco Use Types Packs/Day [...]
--- OUTSIDE RECORDS SUMMARY | 2019-01-08 21:08 | XMS REPORT | Encounter Summary ---
Author Author [facility] Organization [facility] Address Unknown Phone Unavailable Care Team Providers Care Turner Off Name Role Phone Aidan Caraballo PCP Reason for Visit * Reason Comments Cancer * Consult, Test & Treat (Discharge Pending) Referred By Contact Referred To Contact Status Reason Specialty Diagnoses / Procedures Male, Melanie Armstrong MD 4000 [facility] [address] [place] [address] Cc-Ww Bmt Exm [address] [place] [address] [place] [address] No Auth Needed Oncology Diagnoses MDS, RAEB-2 P rocedures F/U APPT REQUEST: [facility] ([facility]) Encounter Details Care Team Description Date Type Department Geoff Jules MD [address] [facility] [place] [address] MDS (myelodysplastic syndrome), high grade (HCC); Pancytopenia (HCC); Stage 3 chronic kidney disease (HCC); Aortic stenosis, moderate 12/08/2018 Office Visit The [address] [phone] Social History Date Tobacco Use Types Packs/Day [...] CDT Your care team: Dr. Geoff Jules Drier Operator Head Selam Kim APRN Nurse Practitioner Clinical Nurse Coordinators (CNC's) Randi Lynne RN, BSN Robina Farmer RN, BSN Phone numbers: Scheduling # [phone] CNCs Randi and Robina # [phone] Messages left on nurses' line are checked Thursday-Thursday 8:00 AM - 4:00 PM. Evening (after 4:00 PM), weekend and holiday on-call # [phone] For urgent needs after hours, please ask [...] 2012. He has been followed with (in [place], [place] with surveillance. He remembers that his blood count was normal on 06/2018. He noticed worsening shor tness of breath on exertion with occasional chest pain starting 09/2018. [place] time, his platelet count was found to be low at 89K. He was referred to [facility] given his progressive shortness of [...] shortness of breath, he was referred to [facility] for possible acute leukemia. He was admitted at [facility] from 11-08 until 12-01-2018. Per discharge summary ". A peripheral smear from the ED was initially concerning for AML. 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 The patient had stable pancytopenia over admission (counts stayed similar to ones fr [facility]'s records) and did not require any transfusions. [...] is using a cane. 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 He had good functional statu s until September 2018. -MR: [id number] APPOINTMENT: Future Appointments Date Time Provider Department Center 12/08/2018 10:20 AM Geoff Jules MD CCC2 [facility] Exam REFERRING PHYSICIAN: Healther Male [...] for detection of rearrangement of CBFB and TPBZ1K5 (ETO)/RUNX 1 (AML1) were WNL. However, in 83.5% of interphase cells an extra [id number] (ETO) signal was present. NGS: In process [...] Trial: Patient currently in screening for a [facility] clinical trial. Eastern Cooperative Oncology Group performance [...] NAME: KELLY YOST A SURG PATH #: [id number] MR #: [id number] ALT ID #: LOCATION: DISCHARGED DATE OF [...] and increased risk of infections. lives in [place], [place] and will need to be followed locally for treatments, supportive care and close monitoring. He was agreeable to establish care with Dr.Mickey Zafar In [place], [place]. We also discussed the option of best supportive care with palliative service. Bob de dios would like to think about his options but he will proceed with hypomethyl ating agents for now locally. We will see him again in 2 to 4 months with repea t bone marrow biopsy and aspiration at [facility] to evaluate his response. Depending on [...] A Denny MD, MSc Hematology/Oncology Fellow The [facility] Pager [phone] ATTESTATION I personally performed the maurice portions [...] and increased risk of infections. lives in [place], [place] and will need to be followed locally for treatments, supportive care and close monitoring. He was agreeable to establish care with Dr.Mickey Zafar In [place], [place]. We also discussed the option of best supportive care with palliative service. Bob de dios would like to think about his options but he will proceed with hypomethyl ating agents for now locally. We will see him again in 2 to 4 months with repea t bone marrow biopsy and aspiration at [facility] to evaluate his response. Depending on NGS results, if he has IDH mutations, then IDH targeted agents migh t be an option. documented in this encounter
--- OUTSIDE RECORDS SUMMARY | 2019-01-08 21:08 | XMS REPORT | Encounter Summary ---
Author Author [facility] Organization [facility] Address Unknown Phone Unavailable Care Team Providers Care Vehicle Insurance Agent Name Role Phone Aidan Caraballo PCP Encounter Details Care Team Description Date Type Department Page Mayorga MD [address] [place] [address] 12/03/2018 Documentation The [facility] [address] [place] [address] Social History Date Tobacco Use [...] 12/03/2018 11:59 PM CDT Research Note: [id number], [facility]# [id number], Subject ID [id number] Patient [id number] bone marrow shows MDS. Patient will be reported as a screen f ail. documented in this encounter Plan of Treatment Not on filedocumented as of this encounter Visit Diagnoses Not on filedocumented in this encounter
--- OUTSIDE RECORDS SUMMARY | 2019-01-08 21:08 | XMS REPORT | Encounter Summary ---
Author Author [facility] Organization [facility] Address Unknown Phone Unavailable Care Team Providers Care Timber Hewer Name Role Phone Aidan Caraballo PCP Ramiro Collazo MD Unavailable Reason for Referral * Radiology Services (Routine) Referred By Contact Referred To Contact Status Reason Specialty Diagnoses / Procedures Britney Dunne APRN-Hetal [address] [address] [facility] [address] [address] No Auth Needed Radiology Diagnoses Severe aortic stenosis P rocedures CTA CHEST WO/W CONTRAST+POST IMPRESSION * Radiology Services (Routine) Referred By Contact Referred To Contact Status Reason Specialty Diagnoses / Procedures Britney Dunne APRN-Hetal [address] [address] New Request Radiology Diagnoses Severe aortic stenosis P rocedures CTA ABD/PELVIS * Consult, Test & Treat (Routine) Referred By Contact Referred To Contact Status Reason Specialty Diagnoses / Procedures Cody, Ade [facility] [address] [place] [phone] No Auth Needed Specialty Services Cardiothoracic Diagnoses Required Surgery Severe aortic stenosis Reason for Visit * Reason Comments Navigation Assessment /TAVR eval Encounter Details Care Team Description Date Type Department Cynthia Hernandez RN Navigation Assessment (/TAVR eval) 12/08/2018 Patient Profile The [facility] 4000 [facility] [place] [address] Social History Date Tobacco Use Types Packs/Day [...] [facility] 12/28/2018 1:30 PM Luis Leonard [facility] 12/28/2018 2:[address]HOSPITAL ROOM 1 ([facility] CAT Radiology Diagnosis & Reason for Visit: /TAVR eval Physician Info: Referring Physician(Oncologist): Geoff Jules MD Security System Sales Consultant: Ramiro Collazo MD PCP: Aidan Caraballo DO [...]
--- OUTSIDE RECORDS SUMMARY | 2019-01-08 21:08 | XMS REPORT | Encounter Summary ---
Author Author [facility] Organization [facility] Address Unknown Phone Unavailable Care Team Providers Care Leather Currier Name Role Phone Aidan Caraballo PCP Ramiro Collazo MD Unavailable Reason for Visit * Reason Comments Cardiac Eval inpt f/u- as/tavr eval * Consult, Test & Treat (Routine) Referred By Contact Referred To Contact Status Reason Specialty Diagnoses / Procedures Mac, Referring [facility] [address] [address] No Auth Needed Specialty Services Cardiothoracic Diagnoses Required Surgery Severe aortic stenosis Encounter Details Care Team Description Date Type Department Luis Leonard MD [address] [address] Aortic stenosis, moderate (Primary Dx); Non-small cell cancer of right lung (HCC); MDS (myelodysplastic syndrome), high grade (HCC); Pancytopenia (HCC); Chronic obstructive pulmonary disease, unspecified COPD type (HCC); CKD (chronic kidney disease) stage 3, GFR 30-59 ml/min (HCC); PAD (peripheral artery disease) (HCC); On home O2; NILA on CPAP; Hypertension, unspecified type; History of tobacco use 12/28/2018 Office Visit The [facility] [address] [address] Social History Date Tobacco Use [...] t that time. From his murmur in [place] they found aortic valve stenosis thought to [...] diverticulosis. He had a heart catheterization in [place] on 11/11/2018 that did not cross the [...] He also denies any histor y of [place], CVA, TIA, cardiac arrhythmia, blood clots, or blood clotting disorders. He denies any allergy to nickel. Denies current rash on torso or groin area. De nies any reason or sabianism belief that would impact their care such [...] (HCC) 3. MDS (myelodysplastic syndrome), high grade ([facility]) 4. Pancytopenia ([facility]) 5. Chronic obstructive pulmonary disease, unspecified COPD type ([facility]) 6. CKD (chronic kidney disease) stage 3, GFR 30-59 ml/min ([facility]) 7. PAD (peripheral artery disease) ([facility]) 8. On home O2 9. NILA on CPAP 10. Hypertension, unspecified type 11. History of tobacco use Will plan on getting JANETT to better view the valve and PFTs as well. June Bailey APRN [facility] Thoracic & Cardiovascular Surgery 12/28/2018 Assessment and [...]
--- OUTSIDE RECORDS SUMMARY | 2019-01-08 21:08 | XMS REPORT | Encounter Summary ---
Author Author [facility] Organization [facility] Address Unknown Phone Unavailable Care Team Providers Care Carcass Splitter Name Role Phone Aidan Caraballo PCP Ramiro Collazo MD Unavailable Reason for Visit * Reason Comments Patient Questions Encounter Details Care Team Description Date Type Department Monica Noel RN Patient Questions 12/29/2018 Telephone The [facility] 4000 [facility] [place] [address] Social History Date Tobacco Use Types Packs/Day [...] Jarrell. Davin Jarrell MD Medical Oncology-Hematology [address] [place], [place] Routing note to Dr. Clark for feedback/authorization. documented in this encounter Plan of Treatment Not on filedocumented as of this encounter Visit Diagnoses Not on filedocumented in this encounter
--- OUTSIDE RECORDS SUMMARY | 2019-01-08 21:08 | XMS REPORT | Encounter Summary ---
Author Author [facility] Organization [facility] Address Unknown Phone Unavailable Care Team Providers Care Drainage Engineer Name Role Phone Ilya Aidan PCP Encounter Details Care Team Description Date Type Department Geoff Jules MD [address] [place] [address] [phone] 12/08/2018 Documentation The [address] [address] Social History Date Tobacco Use Types Packs/Day [...] with Brynn at Dr. Zafar's office at [facility] in [place], [place].Let her know that Dr. Jules had [...]
--- OUTSIDE RECORDS SUMMARY | 2019-01-08 21:08 | XMS REPORT | Encounter Summary ---
Author Author [facility] Organization [facility] Address Unknown Phone Unavailable Care Team Providers Care Steam Fitter Supervisor Name Role Phone Aidan Caraballo PCP Ramiro Collazo MD Unavailable Reason for Referral * Radiology Services (Routine) Referred By Contact Referred To Contact Status Reason Specialty Diagnoses / Procedures Britney Dunne APRN-C [address] [place] [address] [address] No Auth Needed Radiology Diagnoses Severe aortic stenosis P rocedures CTA CHEST WO/W CONTRAST+POST IMPRESSION * Radiology Services (Routine) Referred By Contact Referred To Contact Status Reason Specialty Diagnoses / Procedures Britney Dunne APRN-C [address] [address] No Auth Needed Radiology Diagnoses Severe aortic stenosis P rocedures CTA CHEST WO/W CONTRAST+POST IMPRESSION * Radiology Services (Routine) Referred By Contact Referred To Contact Status Reason Specialty Diagnoses / Procedures Britney Dunne APRN-C [address] [address] New Request Radiology Diagnoses Severe aortic stenosis P rocedures CTA ABD/PELVIS * Radiology Services (Routine) Referred By Contact Referred To Contact Status Reason Specialty Diagnoses / Procedures Britney Dunne APRN-C [address] [place] [address] New Request Radiology Diagnoses Severe aortic stenosis P rocedures CTA ABD/PELVIS Reason for Visit * Radiology Services (Routine) Referred By Contact Referred To Contact Status Reason Specialty Diagnoses / Procedures Britney Dunne APRN-C [address] [address] [facility] [address] [address] No Auth Needed Radiology Diagnoses Severe aortic stenosis P rocedures CTA CHEST WO/W CONTRAST+POST IMPRESSION Encounter Details Care Team Description Date Type Department Britney Dunne APRN-C [address] [place] [address] [phone] 12/28/2018 [facility] [address] [place] [address] Social History Date Tobacco Use Types Packs/Day [...]
--- OUTSIDE RECORDS SUMMARY | 2019-01-08 21:08 | XMS REPORT | Encounter Summary ---
Author Author [facility] Organization [facility] Address Unknown Phone Unavailable Care Team Providers Care Rotary Drill Operator Helper Name Role Phone Aidan Caraballo PCP Ramiro Collazo MD Unavailable Reason for Visit * Reason Comments Cardiac Eval /TAVR Eval Encounter Details Care Team Description Date Type Department Juancarlos Clark MD [address] [phone] Cardiac Eval (/TAVR Eval) 12/28/2018 Office Visit The [facility] [address] [phone] Social History Date Tobacco Use Types Packs/Day [...] that time. From his mur mur in [place] they found aortic valve stenosis thought to be moderate to severe and felt some of his symptoms could be related to this. They referred him to [facility] for [...] diverticulosis. He had a heart catheterization in [place] on 11/11/2018 that did not cross the [...] He also denies any histor y of [place], CVA, TIA, cardiac arrhythmia, blood clots, or blood clotting disorders. He denies any allergy to nickel. Denies current rash on torso or groin area. De nies any reason or restorationism belief that would impact their care such [...] and PFTs as well. June Bailey APRN [facility] Thoracic & Cardiovascular Surgery 12/28/2018 Cardiovascular Studies [...]
--- OUTSIDE RECORDS SUMMARY | 2019-01-08 21:09 | XMS REPORT | Encounter Summary ---
Author Author [facility] Organization [facility] Address Unknown Phone Unavailable Care Team Providers Care Claims Examiner Name Role Phone Aidan Caraballo PCP Reason for Visit * Reason Comments Navigation Assessment Encounter Details Care Team Description Date Type Department Geoff Jules MD [address] [place] [address] [phone] Navigation Assessment 12/02/2018 Telephone The [facility] [address] [place] [phone] Social History Date Tobacco Use Types Packs/Day [...] & Reason for Visit: Transplant/Treatment Options-MDS [facility]-MR: [id number] APPOINTMENT: Future Appointments Date Time Provider Department Center 12/08/2018 10:20 AM Geoff Jules MD CCC2 [facility] Exam REFERRING PHYSICIAN: Healther Male FACILITY: INSURANCE: [...] and [facility]. Timeline of Events: DATES 11/26/2018 Labs [...] for detection of rearrangement of CBFB and YNYS3R2 (ETO)/RUNX 1 (AML1) were WNL. However, in 83.5% of interphase cells an extra [id number] (ETO) signal was present. NGS: In process [...] Physical Needs Intervention: Patient encouraged to use automotive production worker services for appoin tment(s) Communication: Assessment: Communication Barrier: No Onc Fertility: Assessment: Onc Fertility Assessment: Not applicable documented in this encounter Plan of Treatment Not on filedocumented as of this encounter Visit Diagnoses Not on filedocumented in this encounter
--- OUTSIDE RECORDS SUMMARY | 2019-01-08 21:10 | XMS REPORT | Encounter Summary ---
Author Author [facility] Organization [facility] Address Unknown Phone Unavailable Care Team Providers Care Cloth Trimmer Hand Name Role Phone Aidan Caraballo PCP Reason for Referral * Consult, Test & Treat (Discharge Pending) Referred By Contact Referred To Contact Status Reason Specialty Diagnoses / Procedures Male, Melanie Armstrong MD [address] [address] Cc-Ww Bmt Exm [address] [place] [address] No Auth Needed Oncology Diagnoses MDS, RAEB-2 P rocedures F/U APPT REQUEST: [facility] * Consult, Test & Treat (Discharge Pending) Referred By Contact Referred To Contact Status Reason Specialty Diagnoses / Procedures Male, Melanie Armstrong MD [address] [address] Cc-Ww Bmt Ex[address] No Auth Needed Oncology Diagnoses MDS, RAEB-2 P rocedures F/U APPT REQUEST: [facility] Reason for Visit * Reason Comments Chest Pain CP/SOA x few weeks, worse today. Hx AV stinosis * Auth/Cert Referred By Contact Referred To Contact Status Reason Specialty Diagnoses / Procedures Diagnoses Pancytopenia (HCC) Encounter Details Care Team Description Date Type Department Hever Guillen MD 4000 [facility] Emergency Dept [place], [place] [id number] Sherif Moura DO 4000 [facility] [address] [place], [place] [id number] Anyi Reddy MD [address] [place], [place] [id number] Male, Melanie Armstrong MD 4000 [facility] [address] [place], [place] [id number] Pancytopenia (HCC) 11/26/2018 [facility] 12/01/[address] [place], [place] [id number] Social History Date Tobacco Use Types Packs/Day [...] or concerns regarding your hospital stay, call [phone]. Discharging attending physician: MELANIE SEVERINO [[id number]] Regular Diet You have no dietary restriction. 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, +RAEB2 -[place] labs show definite and stable pancytopenia since ~06/2018 -> WBC ~2, Hgb ~11, Plt ~50 -11/22 admit to [place] & workup significant for Ferritin (1048), abnormal [...] , with lightheadedness, MURRELL -stable murmur -11/22 [place] [facility] did not recommend TAVR in setting of pancytopenia -11/22 [place] LHC: no CAD, [id number] -11/26 [facility] ECHO showed EF 60%, no [...] Plan: >continue q6mo followup with oncology in [place] #Hepatic steatosis -11/11 FLP Chol 125 / TriG 117 / HDL 38 / LDL 64 [facility] enlarged liver with steatosis, normal spleen -11/26 CT a/p: steatosis -11/26 AST/ALT wnl #Hyponatremia (improving) -Na ~137 -> 136 -> 133 -> 130 11/29 -> 131 11/30 -serum Osm 276. Urine Na 41. Urine Osm 236 -11/15/18 [place] TSH 3.03 -improved after fluids and PO intake #CKD (stable) -Cr ~1.3 baseline -11/26 CT a/p: kidneys unremarkable #GERD > pantoprazole 40mg daily #Constipation > start miralax bid #HTN > discontinued uniform force captain amlodipine 5mg daily #HLD > continue uniform force captain simvastatin #COPD > continue uniform force captain spiriva, mometasone substitute #Insomnia > continue uniform force captain restoril 30mg qhs prn #Hx of hemorrhoidectomies (stable) > no GI bleeding #Migraine w/ aura (stable, controlled) -uniform force captain regimen triptan 50mg prn and ibuprofen [...] Staff name: Melanie Severino MD Date: 12/01/2018 [employer] Division of Hematologic Malignancies and Cellular Therapeutics Department of Internal Medicine [facility] Pager [phone] Subjective Kelly Yost had no acute events [...] Continuous Infusions: PRN and Respiratory Meds:alteplase PRN (Middleware Administrator from Rx), lidocaine PRN, ondanse shayna Q6H [...] RN - 12/01/2018 5:26 AM CDT Shift: [phone] NEWS Score: 3, 1, 2 Pain: Denies [...] equipment Therapist: Staci Joseph, Student Physical therapist oral surgery assistant Date: 11/30/2018 Associated attestation - Robina [...] mod-sever e , COPD who presented to [place] with MURRELL, pancytopenia and referred/admitted to [facility] with now most likely MDS vs less likely AML Plan #Pancytopenia, likely MDS vs less likely AML -[place] labs show definite and stable pancytopenia since ~06/2018 -> WBC ~2, Hgb ~11, Plt ~50 -11/22 admit to [place] & workup significant for Ferritin (1048), abnormal [...] , with lightheadedness, MURRELL -stable murmur -11/22 [place] [facility] did not recommend TAVR in setting of pancytopenia -11/22 [place] LHC: no CAD, [id number] -11/26 [facility] ECHO showed EF 60%, no [...] Plan: >continue q6mo followup with oncology in [place] #Hepatic steatosis -11/22 [facility] abd US: enlarged liver with steatosis, normal spleen -11/26 CT a/p: steatosis -11/26 AST/ALT wnl #Hyponatremia (improving) -Na ~137 -> 136 -> 133 -> 130 11/29 -> 131 11/30 -serum Osm 276. Urine Na 41. Urine Osm 236 -11/15/18 [place] TSH 3.03 -improved after fluids and PO intake #CKD (stable) -Cr ~1.3 baseline -11/26 CT a/p: kidneys unremarkable #GERD > pantoprazole 40mg daily #Constipation > start miralax bid #HTN > holding uniform force captain amlodipine 5mg daily #HLD > continue uniform force captain simvastatin #COPD > continue uniform force captain spiriva, mometasone substitute #Insomnia > continue uniform force captain restoril 30mg qhs prn #Hx of hemorrhoidectomies (stable) > no GI bleeding #Migraine w/ aura (stable, controlled) -uniform force captain regimen triptan 50mg prn and ibuprofen [...] Staff name: Melanie Severino MD Date: 11/30/2018 Contract Loader Division of Hematologic Malignancies and Cellular Therapeutics Department of Internal Medicine [facility] Pager [phone] Subjective Kelly Yost had no acute events [...] Continuous Infusions: PRN and Respiratory Meds:alteplase PRN (Middleware Administrator from Rx), ondansetron Q6H PRN OR ondansetron [...] necessary equipment Therapist: [place] D[place] [id number] Date: 11/29/2018 * Page Bourgeois - 11/29/2018 9:50 AM CDT CLINICAL NUTRITION Clinical Nutrition Assessment Summary NAME:Kelly Yost :1945 AGE: 73 y.o. 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 Pt meets criteria for malnutrition. Pt reports [...] mod-sever e , COPD who presents from [facility] with MURRELL, abnormal CBCs and looking for 2nd opinion, and is admitted for pancytopenia with probable AML vs MDS Plan #Pancytopenia, probable AML vs MDS #Presenting syndrome of fevers, fatigue, MURRELL, weakness, weight loss, decreased P O intake, lightheadedness -[place] labs show definite but stable pancytopenia since 06/2018 -> WBC ~2, Hgb ~11, Plt ~50 -11/22 admit to [place] & workup significant for Ferritin (1048), Copper [...] , with lightheadedness, MURRELL -stable murmur -11/22 [place] [facility] did not recommend TAVR in setting of pancytopenia -11/22 [place] LHC: no CAD, [id number] -11/26 [facility] ECHO showed EF 60%, no [...] Urine Na 41. Urine Osm 236 -11/15/18 [place] TSH 3.03 -ddx: low osmolar intake, SIADH, [...] Plan: >continue q6mo followup with oncology in [place] #Steatosis -11/22 [facility] US: enlarged liver with steatosis, normal spleen -11/26 CT a/p: steatosis -11/26 AST/ALT wnl #New RIOS (resolved) #New vision change (resolved) #Migraine w/ aura (stable, controlled) -uniform force captain regimen triptan 50mg prn and ibuprofen prn -concern for regular tension headache but consider BUSINESS SUPPORT COORDINATOR involvement of likely sana kemia Plan: >low threshold for MRI, LP if develops focal-findings, worsening RIOS #GERD Plan: > continue uniform force captain pantoprazole 40mg daily > order GI cocktail once today #Constipation > start miralax bid #HTN > holding uniform force captain amlodipine 5mg daily #HLD > continue uniform force captain simvastatin #COPD > continue uniform force captain spiriva, mometasone substitute #Insomnia > continue uniform force captain restoril 30mg qhs prn #Hx of hemorrhoidectomies (stable) > no GI bleeding PPX: FEN: none, replacing PRN, DIET immunosuppressed LDA: PIV DVT:holding chemical ppx with bleeding risk Code Status: Full Disposition: continue admit to Hematology DC: possible will require [facility] Patient seen and discussed with Dr. 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 Staff name: Melanie Severino MD Date: 11/29/2018 [employer] Division of Hematologic Malignancies and Cellular Therapeutics Department of Internal Medicine [facility] Pager [phone] Subjective Kelly Yost had no acute events [...] PRN and Respiratory Meds:albuterol PRN, alteplase PRN (Middleware Administrator from Rx), ondanse shayna Q6H PRN OR [...] of yellow urine overnight. Last BM 4/19 [employer]INE[employer] MAINLINE per patient. No c/o N/V overnight. Activity: [...] mod-sever e , COPD who presents from [facility] with MURRELL, abnormal CBCs and looking for 2nd opinion, and is admitted for pancytopenia with probable AML vs MDS Plan #Pancytopenia, probable AML vs MDS #Presenting syndrome of fevers, fatigue, MURRELL, weakness, weight loss, decreased P O intake, lightheadedness -[facility] labs show definite but stable pancytopenia since 06/2018 -> WBC ~2, Hgb ~11, Plt ~50 -11/22 admit to [facility] and workup significant for Ferritin (1048), [...] (irradiated) #Mod-severe , with lightheadedness, MURRELL -11/22 [facility] Cardiology did not recommend TAVR in setting of pancytopenia -11/22 [facility] LHC: no CAD, [id number] -11/26 [facility] ECHO showed EF 60%, no [...] Plan: >continue q6mo followup with oncology in [place] #Steatosis -11/22 [facility] abd US: enlarged liver with steatosis, normal spleen -11/26 CT a/p: steatosis -11/26 AST/ALT wnl #CKD -Cr ~1.3 baseline -> 1.3 -> 1.45 -11/26 CT a/p: kidneys unremarkable Plan: >encourage PO intake, consider labs if not improving #New RIOS (resolved) #New vision change (resolved) #Migraine w/ aura (stable, controlled) -uniform force captain regimen triptan 50mg prn and ibuprofen prn -concern for regular tension headache but consider BUSINESS SUPPORT COORDINATOR involvement of likely sana kemia Plan: >low threshold for MRI, LP if develops focal-findings, worsening RIOS #GERD Plan: > continue uniform force captain pantoprazole 40mg daily > order GI cocktail once today #HTN > holding uniform force captain amlodipine 5mg daily #HLD > continue uniform force captain simvastatin #COPD > continue uniform force captain spiriva, mometasone substitute #Insomnia > continue uniform force captain restoril 30mg qhs prn #Hx of hemorrhoidectomies (stable) > no GI bleeding PPX: FEN: none, replacing PRN, DIET immunosuppressed LDA: PIV DVT:holding chemical ppx with bleeding risk Code Status: Full Disposition: continue admit to Hematology Patient seen and discussed with Dr. Maureen Jefferson MD PGY1 Prelim Resident Pager: [phone] ATTESTATION I have personally performed a history and physical exam on the patient. I have discussed the case with the resident and concur with the resident documentation of history, physical exam, assessment, and treatment plan. Staff name: Anyi Reddy MD Date: 11/28/2018 Machine Design Engineer Division of Hematologic Malignancies and Cellular Therapeutics Pager [phone] Subjective Kelly Yost had no acute events [...] PRN and Respiratory Meds:albuterol PRN, alteplase PRN (Middleware Administrator from Rx), ondanse shayna Q6H PRN OR [...] PM CDT .Patient arrived to room # (90021) via bed accompanied by transport. Patient tra [...] mod-sever e , COPD who presents from [facility] with MURRELL, abnormal CBCs and looking for 2nd opinion, and is admitted for pancytopenia with probable AML vs MDS Plan #Pancytopenia, probable AML vs MDS #Presenting syndrome of fevers, fatigue, MURRELL, weakness, weight loss, decreased P O intake, lightheadedness -[facility] labs show definite but stable pancytopenia since 06/2018 -> WBC ~2, Hgb ~11, Plt ~50 -11/22 admit to [facility] and workup significant for Ferritin (1048), [...] (irradiated) #Mod-severe , with lightheadedness, MURRELL -11/22 [facility] Cardiology did not recommend TAVR in setting of pancytopenia -11/22 [facility] LHC: no CAD, [id number] -11/26 [facility] ECHO showed EF 60%, no [...] vision change #Migraine w/ aura (stable, controlled) -uniform force captain regimen triptan 50mg prn and ibuprofen prn -non-focal exam -concern for regular tension headache but consider BUSINESS SUPPORT COORDINATOR involvement of likely sana kemia Plan: >low threshold for MRI, LP if develops focal-findings, worsening RIOS #Steatosis -11/22 [facility] abd US: enlarged liver with steatosis, normal spleen -11/26 CT a/p: steatosis -11/26 AST/ALT wnl #CKD (stable, ~1.3) #HTN > holding uniform force captain amlodipine 5mg daily #HLD > continue uniform force captain simvastatin #COPD > continue uniform force captain spiriva, mometasone substitute #GERD > continue uniform force captain omeprazole 20mg daily #Insomnia > continue uniform force captain restoril 30mg qhs prn #Hx of hemorrhoidectomies (stable) > no GI bleeding #Hx of NSCLC s/p lobe resection and chemo 2012 (stable) -2012 R lobe resection and cisplatin/gemcitibine -11/26 CT chest: R hilar LN, lung nodules <5mm, and old lung resection Plan: >continue q6mo followup with oncology in [place] PPX: FEN: none, replacing PRN, DIET immunosuppressed LDA: PIV DVT:holding chemical ppx with bleeding risk Code Status: Full Disposition: Admit to Hematology Patient seen and discussed with Dr. Maureen Jefferson MD PGY1 Prelim Resident Pager: [phone] ATTESTATION I have personally performed a history and physical exam on the patient. I have discussed the case with the resident and concur with the resident documentation of history, physical exam, assessment, and treatment plan. Staff name: Anyi Reddy MD Date: 11/27/2018 Machine Design Engineer Division of Hematologic Malignancies and Cellular Therapeutics Pager [phone] Subjective Kelly Yost had no acute events [...] PRN and Respiratory Meds:albuterol PRN, alteplase PRN (Middleware Administrator from Rx), ondanse shayna Q6H PRN OR [...] PM CDT Patient arrived to room # (8939) via wheelchair accompanied by transport. Patien t [...] mod-sever e , COPD who presents from [facility] with MURRELL, abnormal CBCs and looking for 2nd opinion, and is admitted for pancytopenia with probable AML vs MDS Plan #Pancytopenia, probable AML vs MDS #Presenting syndrome of fevers, fatigue, MURRELL, weakness, weight loss, decreased P O intake, lightheadedness -[facility] labs show definite but stable pancytopenia ~06/2018 -WBC ~2, Hgb ~11, Plt ~50 -11/22 admit to [facility] and workup significant for Ferritin (1048), [...] (irradiated) #Mod-severe , with lightheadedness, MURRELL -11/22 [facility] Cardiology did not recommend TAVR in setting of pancytopenia -11/22 [facility]: no CAD, [id number] -11/26 [facility] ED: BNP and troponin negative -11/26 [facility] ECHO showed EF 60%, no wall motion abnormalities, and moderate Plan: >consult cardiology in AM #New RIOS #New vision change #Migraine w/ aura (stable, controlled) -uniform force captain regimen triptan 50mg prn and ibuprofen prn -non-focal exam -concern for regular tension headache but consider BUSINESS SUPPORT COORDINATOR involvement of likely sana kemia Plan: >low threshold for MRI, LP if develops focal-findings, worsening RIOS #CKD -Cr ~1.3 -> 1.34 on admit Plan: >500cc NS @100/hr #Steatosis -11/22 [facility] abd US: enlarged liver with steatosis, normal spleen -11/26 CT a/p: steatosis -11/26 AST/ALT wnl #HTN > holding uniform force captain amlodipine 5mg daily #HLD > continue uniform force captain simvastatin #COPD > continue uniform force captain spiriva, mometasone substitute #GERD > continue uniform force captain omeprazole 20mg daily #Insomnia > continue uniform force captain restoril 30mg qhs prn #Hx of hemorrhoidectomies (stable) > no GI bleeding #Hx of NSCLC s/p lobe resection and chemo 2012 (stable) -2012 R lobe resection and cisplatin/gemcitibine -11/26 CT chest: R hilar LN, lung nodules <5mm, and old lung resection Plan: >continue q6mo followup with oncology in [place] PPX: FEN: none, replacing PRN, DIET immunosuppressed LDA: PIV DVT:holding chemical ppx with bleeding risk Code Status: Full Disposition: Admit to Hematology Patient seen and discussed with Dr. Martell Jefferson MD PGY1 Prelim Resident Pager: [phone] ATTESTATION I have personally performed a history and physical exam on the patient. I have d iscussed the case with the resident and concur with the resident documentation o f history, physical exam, assessment, and treatment plan unless otherwise noted. Staff name: Sherif Moura DO Pager [phone] Date:11/26/2018 Chief Complaint: 2nd opinion for "MDS", [...] fever Thursday). He follows with oncology in [facility] for previously-resected NSCLC. They noted pancytopenia around . The patient recalls some vitamins and bloodwork but no biopsies or other anais p. He felt his symptoms, especially his MURRELL, progressing the last weeks, so he g ot admitted to [facility] 11/22-11/24 for evaluation. He was seen by [...] quantity to the prior lab trends at [facility]/[place]. He has stable CKD to C r [...] Patient tolerated procedure well. Daisy Diaz APRN [phone] documented in this encounter Consult Notes * [...] moderate . He was seen by his church supervisor in Oct who recommended further testing with LHC/RHC to evaluate shortness of breath. Pt underwent LHC/RHC which did not reveal any CAD. It did show moderate-severe . At that time he was also noted to have pancytopenia. He was evaluated by hemonc at [place] who felt he had MDS. He was admitted at [place] where he was apparently told he had [...] After 5PM please call Cardiology bennett w tongue lining stitcher. Thursday - Thursday 8AM-5PM please call Cardiology consult pager TONY Caro CV Fellow Pager: [phone] Home Medications Medications Prior to Admission Medication [...] PRN and Respiratory Meds:albuterol PRN, alteplase PRN (Middleware Administrator from Rx), ondanse shayna Q6H PRN OR [...] no significant ischemia. He was seen by church supervisor and underwent cardiac catheterization. There was no significant obstructive coronary artery disease noted however he was diagnosed with moderate to severe aortic stenosis a s catheter could not be passed. He also had an echocardiogram demonstrating mod erate to severe aortic stenosis on the outside echo. Patient underwent an echoc ardiogram at [facility] yesterday demonstrating ejection fraction of 60%. [...] and pale. Patient was being seen at [facility] in [place] and was told he had aortic valve [...] shoes, socks, underwear, hat, jacket * Tawana uMrray RN - 11/26/2018 11:56 AM CDT Pt [...] 2 weeks ago he was evaluated at [facility] in [place] and underwent US and cardiac cath showing moderate aortic valve stenosis. He also states that he was noted to have low WBC and platelets at that time. Pt from [place] in [facility]. 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 History provided by: Patient healthcare interpreter used: No Review of Systems: Review of [...] 11 - 82 U/L Final POC TROPONIN Pnzbnqog-P-WIP 0.02 0.00 - 0.05 NG/ML Final URINALYSIS DIPSTICK Color,UA YELLOW Final Turbidity,UA CLEAR CLEAR-CLEAR Final Specific Ward-Urine 1.014 1.003 - 1.035 Final pH,UA 6.0 [...] (Results Pending) EKG: Normal sinus rhythm (108), WI 164, QRS 80, QTc 429, No STEMI [...] in the presence of Joce Elizondo MD. Quincy McGhie Attestation / Supervision Note concerning Kelly [...] & cisplatin chemotherapy - q6mo f/u in [place] 5. Stage 3 CKD - Baseline Cr ~1.3 - Stable - Encourage PO intake 6. Migraines w/ aura - ENGINEER [employer] MAINLINE sumatriptan and ibuprofen 7. Steatosis - OSH abdominal US revealed liver enlargement with steatosis - CT on 11/26 revealed steatosis - AST, ALT wnl - Continue to follow 8. GERD - Protonix 40 mg 9. HLD - Simvastatin 20 mg 10. COPD - Albuterol, 2 puff, BID & prn - Symbicort, 2 puff, BID - Tiotropium QD 11. Insomnia - [employer]INE[employer] MAINLINE Temazepam 30 mg Subjective Kelly Yost is [...] Continuous Infusions: PRN and Respiratory Meds:alteplase PRN (Middleware Administrator from Rx), lidocaine PRN, ondanse shayna Q6H [...] home health when medically stable. Possible [facility]. Pt's will provide transportation home. SW will continue to follow for d/c needs. 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 Pt is from [facility] in [place], [place] and is seeking a second opinion. Met with the pt, his , Viktor, and his dtr, Sylvia, at bedside for assessment and d/c planning. The pt reports he was independent with all care needs until t wo weeks prior to hospital admission. Pt became progressively fatigued and weake issac. 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 The pt has a walker and quad cane. He typically uses the w alker. The pt has no prior h/o HH, SNF, IPR, or LTACH. The pt acknowledges that he may need to remain in the area after hospital d/c. SW provided information about the [facility]. The pt and his are appreciative of the info. Pt's declines a caregiver referral to the [facility] at this time. The pt has support from his , daughter, son, and friends. The pt's is home with e pt and can provide 24/7 care. The pt's son lives 1 hour away from the pt's [facility] e. The pt's dtr lives 1 hour from the area. The pt's son and dtr cannot provi de consistent care d/t their distance from the pt's home and their familial comm itments. The pt said his goal is to function at a more independent level so he c an successfully manage his care needs in the home setting. Patient Address/Phone [address] [phone] (home) Emergency Contact Extended Emergency Contact Information Primary Emergency Contact: sylvia schneider Mobile Relation: Daughter Secondary Emergency Contact: viktor yost Mobile Relation: Spouse Healthcare Directive Healthcare Directive: Yes, patient has a healthcare directive Type of Healthcare Directive: Durable power of finance attorney for healthcare, Living W ill Location [...] Source of Income Source Of Income: Other custodial income ? Financial Assistance Needed? No Psychosocial [...] ? Outpatient Therapy PT: No OT: No RADIO ANNOUNCER: No ? Half-Way Facility/[facility] SNF: No NH: No ? Inpatient Rehab IPR: No ? [facility] Hospital LTACH: No ? Acute Hospital Stay Acute Hospital Stay: No Patricia Aguilar LMSW Pg [phone] * Care Plan - Cindy Berumen RN [...] AML (The Beat AM L Trial) HSC: [id number] Consent Version Date: Version [id number] Clinical trial [...] Organization Address City/State/Zipcode Phone Number MAIN LAB [address] [place] [address] * COMPREHENSIVE METABOLIC PANEL CELLULAR THERAPEUTICS (12/01/2018 [...] (L) >60 mL/min [facility] Comment: [place] The eGFR is not validated for use in drug dosing adjustments.Continue to use estimated creatinine clearance per dosing reference text.Please contact the Clinical Pharmacist for questions. eGFR >60 >60 mL/min [facility] [place] Comment: The eGFR is not validated for use in drug dosing adjustments.Continue to use estimated creatinine clearance per dosing reference text.Please contact the Clinical Pharmacist for questions. Specimen Blood Performing Organization Address City/State/Zipcode Phone Number [facility] [address] [place] [address] * CBC AND DIFF CELLULAR THERAPEUTICS (12/01/2018 [...] Specimen Blood Performing Organization Address City/[facility]/Zipcode Phone Number [facility] [address] [place] [address] * LDH-LACTATE DEHYDROGENASE (11/30/2018 5:32 AM CDT) Lactate 188 100 - 210 U/L [facility] Dehydrogenase Specimen Blood Performing Organization Address [facility] Phone Number [facility] [address] [place] [address] * URIC ACID (11/30/2018 5:32 AM CDT) Uric Acid 3.4 (L) 4.0 - 8.0 MG/DL MAIN LAB Specimen Blood Performing Organization Address [facility] Phone Number MAIN LAB [address] [place] [address] * FIBRINOGEN (11/30/2018 5:32 AM CDT) Fibrinogen 502 (H) 200 - 400 MG/DL MAIN LAB Specimen Blood Performing Organization Address [facility]ode Phone Number MAIN LAB [address] [place] [address] * PHOSPHORUS CELLULAR THERAPEUTICS (11/30/2018 5:32 AM CDT) Phosphorus 3.1Comment: NOTE NEW REFERENCE 2.0 - 4.5 MG/DL [facility] RANGES Specimen Blood Performing Organization Address [facility] Cent[facility]ode Phone Number MAIN LAB [address] [place] [address] * MAGNESIUM CELLULAR THERAPEUTICS (11/30/2018 5:32 AM CDT) Magnesium 1.9 1.6 - 2.6 mg/dL MAIN LAB Specimen Blood Performing Organization Address [facility]/Zipcode Phone Number MAIN LAB [address] [place] [id number] * COMPREHENSIVE METABOLIC PANEL CELLULAR THERAPEUTICS (11/30/2018 [...] Creatinine 1.33 (H) 0.4 - 1.24 MG/DL [facility] Calcium 8.6 8.5 - 10.6 MG/DL MAIN LAB Total Protein 6.0 6.0 - 8.0 G/DL MAIN LAB Total Bilirubin 0.7 0.3 - 1.2 MG/DL MAIN LAB Albumin 3.4 (L) 3.5 - 5.0 G/DL [facility] Alk Phosphatase 62 25 - 110 U/L [facility] AST (SGOT) 15 7 - 40 U/L [facility] CO2 19 (L) 21 - 30 MMOL/L [facility] ALT (SGPT) 18 7 - 56 U/L [facility] Anion Gap 8 3 - 12 [facility] eGFR Non 53 (L) >60 mL/min [facility] Comment: [place] The eGFR is not validated for use in drug dosing adjustments.Continue to use estimated creatinine clearance per dosing reference text.Please contact the Clinical Pharmacist for questions. eGFR >60 >60 mL/min [facility] [place] Comment: The eGFR is not validated for use in drug dosing adjustments.Continue to use estimated creatinine clearance per dosing reference text.Please contact the Clinical Pharmacist for questions. Specimen Blood Performing Organization Address City/[facility]/Zipcode Phone Number [facility] [address] [place] [address] * PTT (APTT) (11/30/2018 5:32 AM CDT) APTT 26.8 24.0 - 36.5 SEC [facility] Specimen Blood Performing Organization Address City/[facility]/Zipcode Phone Number [facility] [address] [place] [address] * PROTIME INR (PT) (11/30/2018 5:32 AM CDT) INR 1.3 (H) 0.8 - 1.2 [facility] Specimen Blood Performing Organization Address [facility]/Zipcode Phone Number [facility] [address] [place] [address] * CBC AND DIFF CELLULAR THERAPEUTICS (11/30/2018 [...] Address City/State/Zipcode Phone Number MAIN LAB [address] [place] [address] * HLA CLASS 1A 1B 1C AND 2 PHENO HIGH RES (11/29/2018 11:20 PM CDT) [facility] HLA Class 1A 1B Report Available in Epic REFERENCE LAB 1C and 2 Pheno High Res Specimen Blood Performing Organization Address City/[facility]/Zipcode Phone Number REFERENCE LAB REFERENCE LAB See results for address. * BASIC METABOLIC PANEL (11/29/2018 11:20 PM CDT) [facility] Sodium 130 (L) 137 - 147 MMOL/L [...] (L) >60 mL/min [facility] Comment: [place] The eGFR is not validated for use in drug dosing adjustments.Continue to use estimated creatinine clearance per dosing reference text.Please contact the Clinical Pharmacist for questions. eGFR >60 >60 mL/min [facility] [place] Comment: The eGFR is not validated for use in drug dosing adjustments.Continue to use estimated creatinine clearance per dosing reference text.Please contact the Clinical Pharmacist for questions. Specimen Blood Performing Organization Address City/State/Zipcode Phone Number MAIN LAB [address] [place] [address] * HLA ANTIBODY ID (11/29/2018 6:03 PM CDT) HLA Antibody ID Report Available in Epic REFERENCE LAB Performing Organization Address City/[facility] Phone Number REFERENCE LAB REFERENCE [...] PM CDT) HLA Antibody Report Available in [facility] REFERENCE LAB Screen Specimen Blood Narrative Performed At Performing Organization Address City/State/Zipcode Phone Number REFERENCE LAB REFERENCE LAB See results for address. * CMV AB IGG (11/29/2018 6:03 PM CDT) CMV, IgG NEG [facility] Specimen Blood Performing Organization Address City/State/Zipcode Phone Number [facility] [address] [place] [address] * URINALYSIS, MICROSCOPIC (11/29/2018 12:15 PM CDT) WBCs,UA NONE 0 - 2 /HPF [facility] RBCs,UA NONE 0 - 3 /HPF [facility] Specimen Urine - Urine Performing Organization Address City/State/Zipcode Phone Number MAIN LAB [address] [place] [address] * URINALYSIS DIPSTICK (11/29/2018 12:15 PM CDT) Color,UA YELLOW [facility] Turbidity,UA CLEAR CLEAR-CLEAR [facility] Specific 1.006 1.003 - 1.035 [facility] Ward-Urine pH,UA 6.0 5.0 - 8.0 [facility] MAIN [...] Specimen Urine - Urine Performing Organization Address [facility] Phone Number MAIN LAB [address] [place] [address] * OSMOLALITY-URINE RANDOM (11/29/2018 12:15 PM CDT) Osmolality-Urin 236 50 - 1,400 MOS/KG [facility] e Specimen Urine - Urine Performing Organization Address [facility] Phone Number MAIN LAB [address] [place] [address] * SODIUM-URINE RANDOM (11/29/2018 12:15 PM CDT) Sodium, Random 41 MMOL/L MAIN LAB Specimen Urine - Urine Performing Organization Address [facility]ome Phone Number MAIN LAB [address] [place] [address] * BONE MARROW (11/29/2018 11:47 AM CDT) PATHOLOGY [facility] [email or web address] Department of Pathology and Laboratory Medicine [address] [place] [address] Surgical Pathology Office:[phone] :[phone] SURGICAL PATHOLOGY REPORT NAME: KELLY YOST SURG PATH #: [id number] MR #: [id number] ALT ID #: LOCATION: DISCHARGED DATE OF [...] of Pathology and Laboratory Medicine of the [facility] ([employer]) in compliance [...] of Pathology and Laboratory Medicine of the [facility].It has not been cleared or approved by the FDA.The FDA has determined that such clearance or approval is not necessary. Performing Organization Address City/State/Zipcode Phone Number [facility] [address] [place] [address] * CHROMOSOMES BONE MARROW (11/29/2018 11:16 AM CDT) Chromosomes Cytogenetics Report Available [facility] Bone Marrow in Epic Specimen Bone Marrow Performing Organization Address City/[facility] Phone Number [facility] [address] [place] [address] * CHROMOSOMES FISH DNA PROBE (11/29/2018 11:16 AM CDT) Chromosomes Cytogenetics Report Available [facility] Fish DNA Probe in Epic Specimen Bone Marrow Performing Organization Address [facility] Phone Number [facility] [address] [place] [address] * FLOW CYTOMETRY (11/29/2018 11:10 AM CDT) PATHOLOGY [facility] LAB [facility] [employer] Kai Soliz MD, Director of Flow Cytometry Laboratory Department of Pathology and Laboratory Medicine [address] [place] [address] Surgical Pathology Office:[phone] :[phone] FLOW CYTOMETRY REPORT NAME: KELLY YOST SURG PATH #: [id number] MR #: [id number] SPECIMEN CLASS: LC BILLING #: [id number] ALT ID #:LOCATION: 42 DATE OF PROCEDURE: 11/29/2018 AGE:73 SEX: M DATE RECEIVED: 11/29/2018 : 1945TIME RECEIVED:12:01 PHYSICIAN: DAISY DIAZ DATE OF REPORT: 11/29/2018 COPY TO: DO Maureen DECKER M.D. MALE,[facility] DATE OF PRINTIN11/29/2018 Material Received: A: [...] Panel Myeloid Associated Markers (% Positive Cells): YJ33c=36; VV50o=0; CD13=80; CD14=1; CD15=5; CD33=66; CD64=9; YH977=83; cyMPO=42; cyMPO+CD34+=20 B Cell Associated Markers (% Positive Cells): CD19=5; CD20=4; lqCS31=1; wtHH74j=1 [place]=0; Lambda=1; [place]:Lambda ratio=0.0 T Cell Associated Markers (% Positive Cells): CD1a=0; CD2=1; sCD3=0; cyCD3=0; CD4=0; CD5=0; CD7=4; CD8=0 CD4:CD8 ratio=n/a Miscellaneous Markers (% Positive Cells): CD10=1; CD34=72; CD34+CD13+=65; CD34+CD117+=69; CD38=99; CD45= 20; CD56=31; DC227=49; HLA-DR=71; nTdT=0 Cell Viability (%):n/a Number of Cells Analyzed:10,000 Total Number of Markers: 31 Summary of Marker Combinations: Dr/33/34/13/123/45/56/15; 117/34/64/11b/45/14/11c; K/L/34/10/19/45/38/20; 2/7/4/3/1a/45/5/8; nTdt/cy22/34/cy3/cy79a/45/cyMP O/19 This test was developed and its performance characteristics determined by the [facility] Flow Cytometry Laboratory.It has not been cleared or approved by the U.S. Food and Drug Administration (FDA).The FDA has determined that such clearance or approval is not necessary. Performing Organization Address City/[facility]/Zipcode Phone Number MAIN LAB [address] [place] [address] * HEME PANEL NGS 65 BLD OR BM (11/29/2018 11:10 AM CDT) Heme Panel NGS Report Available in Epic REFERENCE LAB 65 BLD or Bone Marrow Performing Organization Address [facility] Cent[facility]ode Phone Number REFERENCE LAB REFERENCE LAB See results for address. * LEUKEMIA/LYMPHOMA PNL, BONE MARROW (11/29/2018 11:10 AM CDT) Leuk/Lymph SEE PATHOLOGY REPORT MAIN LAB Interpretation Specimen/LLM BONE MARROW MAIN LAB Specimen Bone Marrow Performing Organization Address [facility] Cent[facility]ode Phone Number MAIN LAB [address] [place] [address] * FE STAIN (11/29/2018 11:10 AM CDT) Bone Marrow FE SEE PATHOLOGY REPORT MAIN LAB Specimen Bone Marrow - Bone Marrow Performing Organization Address [facility]/Zipcode Phone Number MAIN LAB [address] [place] [address] * BONE MARROW BIOPSY (11/29/2018 11:10 AM CDT) Bone Marrow Bx SEE PATHOLOGY REPORT MAIN LAB Specimen Bone Marrow - Bone Marrow Performing Organization Address [facility]/Zipcode Phone Number MAIN LAB [address] [place] [address] * BONE MARROW ASP (11/29/2018 11:10 AM CDT) Bone Marrow Asp SEE PATHOLOGY REPORT MAIN LAB Specimen Bone Marrow - Bone Marrow Performing Organization Address City/[facility]/Zipcode Phone Number [facility] [address] [place] [address] * AMYLASE (11/29/2018 5:56 AM CDT) Amylase 39 24 - 100 U/L [facility] Performing Organization Address [facility] Phone Number [facility] [address] [place] [address] * OSMOLALITY (11/29/2018 5:56 AM CDT) Osmolality 276 (L) 280 - 307 MOSMOL/KG [facility] Performing Organization Address [facility] Phone Number [facility] [address] [place] [address] * LDH-LACTATE DEHYDROGENASE (11/29/2018 5:56 AM CDT) Lactate 208 100 - 210 U/L MAIN LAB Dehydrogenase Specimen Blood Performing Organization Address [facility] Phone Number MAIN LAB [address] [place] [address] * URIC ACID (11/29/2018 5:56 AM CDT) Uric Acid 3.9 (L) 4.0 - 8.0 MG/DL MAIN LAB Specimen Blood Performing Organization Address [facility] Phone Number MAIN LAB [address] [place] [address] * FIBRINOGEN (11/29/2018 5:56 AM CDT) Fibrinogen 490 (H) 200 - 400 MG/DL [facility] Specimen Blood Performing Organization Address [facility] Phone Number MAIN LAB [address] [place] [address] * PHOSPHORUS CELLULAR THERAPEUTICS (11/29/2018 5:56 AM CDT) Phosphorus 3.1Comment: NOTE NEW REFERENCE 2.0 - 4.5 MG/DL [facility] RANGES Specimen Blood Performing Organization Address [facility]/Zipcode Phone Number [facility] [address] [place] [address] * MAGNESIUM CELLULAR THERAPEUTICS (11/29/2018 5:56 AM CDT) Magnesium 2.0 1.6 - 2.6 mg/dL [facility] Specimen Blood Performing Organization Address City/[facility]/Zipcode Phone Number MAIN LAB [address] [place] [address] * COMPREHENSIVE METABOLIC PANEL CELLULAR THERAPEUTICS (11/29/2018 [...] (L) >60 mL/min [facility] Comment: [place] The eGFR is not validated for use in drug dosing adjustments.Continue to use estimated creatinine clearance per dosing reference text.Please contact the Clinical Pharmacist for questions. eGFR >60 >60 mL/min [facility] [place] Comment: The eGFR is not validated for use in drug dosing adjustments.Continue to use estimated creatinine clearance per dosing reference text.Please contact the Clinical Pharmacist for questions. Specimen Blood Performing Organization Address City/[facility]/Zipcode Phone Number MAIN LAB [address] [place] [address] * PTT (APTT) (11/29/2018 5:56 AM CDT) APTT 26.8 24.0 - 36.5 SEC MAIN LAB Specimen Blood Performing Organization Address City/[facility]/Zipcode Phone Number MAIN LAB [address] [place] [address] * PROTIME INR (PT) (11/29/2018 5:56 AM CDT) INR 1.3 (H) 0.8 - 1.2 [facility] Specimen Blood Performing Organization Address City/[facility]/Zipcode Phone Number MAIN LAB [address] [place] [address] * CBC AND DIFF CELLULAR THERAPEUTICS (11/29/2018 [...] Specimen Blood Performing Organization Address City/[facility]/Zipcode Phone Number [facility] [address] [place] [address] * LDH-LACTATE DEHYDROGENASE (11/28/2018 5:33 AM CDT) Lactate 190 100 - 210 U/L MAIN LAB Dehydrogenase Specimen Blood Performing Organization Address City/State/Zipcode Phone Number [facility] [address] [place] [address] * URIC ACID (11/28/2018 5:33 AM CDT) Uric Acid 4.4 4.0 - 8.0 MG/DL [facility] Specimen Blood Performing Organization Address City/[facility]/Zipcode Phone Number [facility] [address] [place] [address] * FIBRINOGEN (11/28/2018 5:33 AM CDT) Fibrinogen 480 (H) 200 - 400 MG/DL [facility] Specimen Blood Performing Organization Address City/[facility] Phone Number [facility] [address] [place] [address] * PHOSPHORUS CELLULAR THERAPEUTICS (11/28/2018 5:33 AM CDT) Phosphorus 3.3Comment: NOTE NEW REFERENCE 2.0 - 4.5 MG/DL [facility]IN [facility] RANGES Specimen Blood Performing Organization Address City/[facility] Phone Number [facility] [address] [place] [address] * MAGNESIUM CELLULAR THERAPEUTICS (11/28/2018 5:33 AM CDT) Magnesium 1.9 1.6 - 2.6 mg/dL [facility] Specimen Blood Performing Organization Address [facility] Phone Number [facility] [address] [place] [address] * COMPREHENSIVE METABOLIC PANEL CELLULAR THERAPEUTICS (11/28/2018 [...] LAB Anion Gap 8 3 - 12 [facility] eGFR Non 48 (L) >60 mL/min [facility] Comment: [place] The eGFR is not validated for use in drug dosing adjustments.Continue to use estimated creatinine clearance per dosing reference text.Please contact the Clinical Pharmacist for questions. eGFR 58 (L) >60 mL/min MAIN LAB [place] Comment: The eGFR is not validated for use in drug dosing adjustments.Continue to use estimated creatinine clearance per dosing reference text.Please contact the Clinical Pharmacist for questions. Specimen Blood Performing Organization Address City/State/Zipcode Phone Number [facility] [address] [place] [address] * PTT (APTT) (11/28/2018 5:33 AM CDT) APTT 20.1 (L) 24.0 - 36.5 SEC [facility] Specimen Blood Performing Organization Address City/[facility]/Zipcode Phone Number [facility] [address] [place] [address] * PROTIME INR (PT) (11/28/2018 5:33 AM CDT) INR 1.2 0.8 - 1.2 [facility] Specimen Blood Performing Organization Address City/[facility]/Zipcode Phone Number [facility] [address] [place] [address] * CBC AND DIFF CELLULAR THERAPEUTICS (11/28/2018 5:33 AM CDT) White Blood 4.2 (L) 4.5 - 11.0 K/UL [facility] Cells RBC 2.48 (L) 4.4 - 5.5 M/UL [facility] Hemoglobin 9.3 (L) 13.5 - 16.5 GM/DL [facility] Hematocrit 26.3 (L) 40 - 50 % [facility] MCV 105.7 (H) 80 - 100 FL [facility] MCH 37.5 (H) 26 - 34 PG [facility] MCHC 35.5 32.0 - 36.0 G/DL [facility] RDW 16.5 (H) 11 - 15 % MAIN LAB Platelet Count 38 (L) 150 - 400 K/UL [facility] MPV 8.6 7 - 11 FL [facility] Nucleated RBCs 1 K/UL [facility] MAIN [...] Specimen Blood Performing Organization Address City/[facility]/Zipcode Phone Number MAIN LAB [address] [place] [address] * LDH-LACTATE DEHYDROGENASE (11/27/2018 6:06 AM CDT) Lactate 193 100 - 210 U/L MAIN LAB Dehydrogenase Specimen Blood Performing Organization Address City/[facility] Phone Number MAIN LAB [address] [place] [address] * URIC ACID (11/27/2018 6:06 AM CDT) Uric Acid 6.1 4.0 - 8.0 MG/DL MAIN LAB Specimen Blood Performing Organization Address [facility] Phone Number MAIN LAB [address] [place] [address] * FIBRINOGEN (11/27/2018 6:06 AM CDT) Fibrinogen 450 (H) 200 - 400 MG/DL MAIN LAB Specimen Blood Performing Organization Address City/[facility] Phone Number MAIN LAB [address] [place] [address] * PHOSPHORUS CELLULAR THERAPEUTICS (11/27/2018 6:06 AM CDT) Phosphorus 2.9Comment: NOTE NEW REFERENCE 2.0 - 4.5 MG/DL MAIN LAB RANGES Specimen Blood Performing Organization Address City/[facility]/Zipcode Phone Number MAIN LAB [address] [place] [address] * MAGNESIUM CELLULAR THERAPEUTICS (11/27/2018 6:06 AM CDT) Magnesium 2.0 1.6 - 2.6 mg/dL MAIN LAB Specimen Blood Performing Organization Address City/[facility]/Zipcode Phone Number MAIN LAB [address] [place] [address] * COMPREHENSIVE METABOLIC PANEL CELLULAR THERAPEUTICS (11/27/2018 [...] LAB CO2 22 21 - 30 MMOL/L [facility] ALT (SGPT) 25 7 - 56 U/L [facility] Anion Gap 7 3 - 12 MAIN LAB eGFR Non 54 (L) >60 mL/min [facility] Comment: [place] The eGFR is not validated for use in drug dosing adjustments.Continue to use estimated creatinine clearance per dosing reference text.Please contact the Clinical Pharmacist for questions. eGFR >60 >60 mL/min [facility] [place] Comment: The eGFR is not validated for use in drug dosing adjustments.Continue to use estimated creatinine clearance per dosing reference text.Please contact the Clinical Pharmacist for questions. Specimen Blood Performing Organization Address [facility]/Zipcode Phone Number [facility] [address] [place] [address] * PTT (APTT) (11/27/2018 6:06 AM CDT) APTT 23.6 (L) 24.0 - 36.5 SEC [facility] Specimen Blood Performing Organization Address [facility]/Zipcode Phone Number [facility] [address] [place] [address] * PROTIME INR (PT) (11/27/2018 6:06 AM CDT) INR 1.1 0.8 - 1.2 [facility] Specimen Blood Performing Organization Address [facility]/Zipcode Phone Number [facility] MAIN [facility] [address] [place] [address] * CBC AND DIFF CELLULAR THERAPEUTICS (11/27/2018 6:06 AM CDT) Pathologist [facility] White Blood 2.0 (L) 4.5 - 11.0 [...] Specimen Blood Performing Organization Address City/[facility]/Zipcode Phone Number MAIN LAB [address] [place] [address] * VRE SCREEN (11/26/2018 10:00 PM CDT) Battery Name VRE SCREEN MAIN LAB Specimen PERIRECTAL SWAB [facility] Description Special NONE MAIN LAB Requests Culture NO VRE ISOLATED MAIN LAB Report Status FINAL MAIN LAB 11/28/2018 Specimen Perirectal Swab Performing Organization Address City/[facility]/Zipcode Phone Number MAIN LAB [address] [place] [address] * CULTURE-BLOOD W/SENSITIVITY (11/26/2018 9:55 PM CDT) Battery Name BLOOD CULTURE MAIN LAB Specimen BLOOD MAIN LAB Description RIGHT HAND Special NONE [facility]IN [facility] Requests Culture NO GROWTH 5 DAYS MAIN LAB Report Status FINAL MAIN LAB 12/02/2018 Specimen Blood Performing Organization Address City/[facility]/Zipcode Phone Number [facility]IN [facility] [address] [place] [address] * FIBRINOGEN (11/26/2018 9:49 PM CDT) Fibrinogen 449 (H) 200 - 400 MG/DL [facility]IN [facility] Performing Organization Address City/[facility]/Zipcode Phone Number [facility] MAIN [facility] [address] [place] [address] * CULTURE-BLOOD W/SENSITIVITY (11/26/2018 9:43 PM CDT) Battery Name BLOOD CULTURE MAIN LAB Specimen BLOOD MAIN LAB Description LEFT HAND Special NONE MAIN LAB Requests Culture NO GROWTH 5 DAYS MAIN LAB Report Status FINAL MAIN LAB 12/02/2018 Specimen Blood Performing Organization Address City/[facility] Phone Number [facility] [address] [place] [address] * 2-D + DOPPLER ECHOCARDIOGRAM (11/26/2018 2:57 [...] PV Odette Lipari, RDCS [employer] OTHER OUTSIDE [employer] LAB FS 43.37 28 - 44 % OTHER OUTSIDE LAB EF 73.72 % OTHER OUTSIDE LAB LV mass 145.91 96 - 200 g OTHER OUTSIDE LAB RWT 0.52 <=0.42 OTHER OUTSIDE LAB Aortic valve 1.22 cm2 OTHER OUTSIDE area= LAB AV index 0.26 OTHER OUTSIDE ([place]) LAB E/A ratio 0.66 OTHER OUTSIDE LAB LVOT area 3.80 cm2 OTHER OUTSIDE LAB LVOT stroke 72.23 cm3 OTHER OUTSIDE volume LAB TV rest 33 mmHg OTHER OUTSIDE pulmonary LAB artery pressure E/E' ratio 6.50 OTHER OUTSIDE LAB Right Heart 0.136 m/s OTHER OUTSIDE Systolic TDI S' LAB Left Atrium 14.17 16 - 34 OTHER OUTSIDE Index LAB Cardiology Siemens [id number] OTHER OUTSIDE Ultrasound LAB Machine Left Ventricle [...] 12:37 PM CDT) Impressions Performed At [facility] - Hxzlj-tl-Crxi Ultrasound KU RAD RESULTS Exam Date: 11/26/2018 Exam Type: POC ED US CARDIAC LTD Admissions Clerk: Joce Elizondo Attending: Hever Guillen Worksheet: ED-Cardiac Clinical Indication(s) for exam: Chest pain Views: Parasternal Long Windfall: Limited Parasternal Short Windfall: Limited Apical Four-Chamber: Limited Subxiphoid (4 chamber): Limited Subxiphoid IVC: Adequate Apical 2 Chamber: Not obtained Apical Long Windfall: Not obtained Subxiphoid LV Short Windfall: Not obtained Suprasternal Notch: Not obtained Other: [...] - 12/20/2018 10:10 PM CDT IMPRESSION [facility] - Mclfn-ow-Ekjs Ultrasound Exam Date: 11/26/2018 Exam Type: POC ED US CARDIAC LTD Admissions Clerk: Joce Elizondo Attending: Hever Guillen Worksheet: ED-Cardiac Clinical Indication(s) for exam: Chest pain Views: Parasternal Long Windfall: Limited Parasternal Short Windfall: Limited Apical Four-Chamber: Limited Subxiphoid (4 chamber): Limited Subxiphoid IVC: Adequate Apical 2 Chamber: Not obtained Apical Long Windfall: Not obtained Subxiphoid LV Short Windfall: Not obtained Suprasternal Notch: Not obtained Other: [...] 2018 at 10:08:06 PM Performing Organization Address City/State/Zipcome Phone Number RAD RESULTS * URINALYSIS, MICROSCOPIC (11/26/2018 11:53 AM CDT) Pathologist [facility] WBCs,UA 0-2 0 - 2 /HPF [facility] MAIN LAB RBCs,UA 0-2 0 - 3 /HPF [facility] MAIN LAB MucousUA TRACE [facility] MAIN [facility] Specimen Urine - Urine Performing Organization Address [facility] Phone Number [facility] MAIN LAB [address] [place] [address] * URINALYSIS DIPSTICK (11/26/2018 11:53 AM CDT) Color,UA YELLOW [facility] Turbidity,UA CLEAR CLEAR-CLEAR [facility] Specific 1.014 1.003 - 1.035 [facility] MAIN [facility] Ward-Urine pH,UA 6.0 5.0 - 8.0 [facility] MAIN [...] Specimen Urine - Urine Performing Organization Address [facility] Phone Number [facility] MAIN LAB [address] [place] [address] * BNP POC ER (11/26/2018 11:52 AM CDT) BNP POC <15.0 0 - 100 PG/ML [facility] MAIN LAB Performing Organization Address [facility] Phone Number [facility] MAIN LAB [address] [place] [address] * POC TROPONIN (11/26/2018 11:26 AM CDT) Npqjzvrz-E-GIL 0.02 0.00 - 0.05 NG/ML [facility] Performing Organization Address [facility] Phone Number [facility] [address] [place] [address] * URIC ACID (11/26/2018 11:24 AM CDT) Pathologist [facility] Uric Acid 5.9 4.0 - 8.0 MG/DL [facility] MAIN LAB Performing Organization Address [facility] Phone Number MAIN LAB [address] [place] [address] * LDH-LACTATE DEHYDROGENASE (11/26/2018 11:24 AM CDT) Lactate 323 (H) 100 - 210 U/L MAIN LAB Dehydrogenase Performing Organization Address [facility] Phone Number MAIN LAB [address] [place] [address] * PERIPHERAL SMEAR (11/26/2018 11:24 AM CDT) [...] indicated in this report. Performing Organization Address City/[facility] Phone Number MAIN LAB [address] [place] [address] * BLOOD BANK SAMPLE HOLD (11/26/2018 11:24 AM CDT) BB Sample hold IN LAB MAIN LAB Performing Organization Address [facility] Phone Number MAIN LAB [address] [place] [address] * LIPASE (11/26/2018 11:24 AM CDT) Lipase 10 (L) 11 - 82 U/L MAIN LAB Specimen Blood Performing Organization Address [facility] Phone Number MAIN LAB [address] [place] [address] * COMPREHENSIVE METABOLIC PANEL (11/26/2018 11:24 AM [...] (L) >60 mL/min [facility] MAIN [facility] Comment: [place] The eGFR is not validated for use in drug dosing adjustments.Continue to use estimated creatinine clearance per dosing reference text.Please contact the Clinical Pharmacist for questions. eGFR >60 >60 mL/min [facility]IN [facility] [place] Comment: The eGFR is not validated for use in drug dosing adjustments.Continue to use estimated creatinine clearance per dosing reference text.Please contact the Clinical Pharmacist for questions. Specimen Blood Performing Organization Address City/State/Zipcode Phone Number MAIN LAB [address] [place] [address] * CBC AND DIFF (11/26/2018 11:24 AM [...] Address City/State/Zipcode Phone Number [facility] MAIN LAB [address] [place] [address] * ECG-SCAN (11/26/2018 12:00 AM CDT) Narrative [...] Until Thu11/26/18 at 1514, For Procedure, A field marketing lead may only administer Definity through a saline [...]
--- OUTSIDE RECORDS SUMMARY | 2019-01-08 21:11 | XMS REPORT | Encounter Summary ---
Author Author [facility] Organization [facility] Address Unknown Phone Unavailable Care Team Providers Care Retail Coverage Merchandiser Name Role Phone Aidan Caraballo PCP Reason for Visit * Auth/Cert Referred By Contact Referred To Contact Status Reason Specialty Diagnoses / Procedures Diagnoses Pancytopenia (HCC) Encounter Details Care Team Description Date Type Department Hever Guillen MD [address] [facility] [place] [address] 11/26/2018 [facility] [address] [facility] [address] [place] [address] Social History Date Tobacco Use [...]
--- OUTSIDE RECORDS SUMMARY | 2019-01-08 21:11 | XMS REPORT | Encounter Summary ---
Author Author [facility] Organization [facility] Address Unknown Phone Unavailable Care Team Providers Care Sheet Metal Welder Name Role Phone Aidan Caraballo PCP Reason for Visit * Auth/Cert Referred By Contact Referred To Contact Status Reason Specialty Diagnoses / Procedures Diagnoses Pancytopenia (HCC) Encounter Details Care Team Description Date Type Department Hever Guillen MD [address] [facility] [place] [address] 11/26/[address] [facility] [address] [address] Social History Date Tobacco Use [...]
--- OUTSIDE RECORDS SUMMARY | 2019-01-08 21:11 | XMS REPORT | Encounter Summary ---
Author Author [facility] Organization [facility] Address Unknown Phone Unavailable Care Team Providers Care Classification Counselor Name Role Phone Aidan Caraballo PCP Reason for Referral * Transplant (Routine) Referred By Contact Referred To Contact Status Reason Specialty Diagnoses / Procedures Rodrigo Gallegos DO [address] [place] [address] Cc-Ww Bmt Exm [address] Pending Review Specialty Services Oncology Diagnoses Required Acute myeloid leukemia not having achieved remission (HCC) Encounter Details Care Team Description Date Type Department Rodrigo Gallegos DO [address] [place] [address] 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) 11/29/2018 Orders Only [facility] [address] [phone] Social History Date Tobacco Use Types Packs/Day [...]
[2019-01-08] MEDS: TEMAZEPAM 15 MG (RESTORIL) CAP PO PRN (22:19)
[2019-01-08 23:45] VITALS: BP 151/70
[2019-01-09] VITALS (14 sets, daily range): BP systolic 107–148; BP diastolic 59–81
[2019-01-09] MEDS: RT-ALBUTEROL/IPRATROPIUM 3 ML (DUONEB) VIAL INH SCH ×6 (01:29→21:07)
[2019-01-09] MEDS: PIPERACILLIN/TAZO 4.5 GM/NS 100 ML IV SCH ×6 (03:47→18:11)
[2019-01-09 05:04] LABS: BASOPHILS % (AUTO) 2 % (0-10); EOSINOPHILS % (AUTO) 1 % (0-10); LYMPHOCYTES # (AUTO) 0.3 X 10^3 (1.0-4.0); LYMPHOCYTES % (AUTO) 20 % (12-44); MEAN CORPUSCULAR HEMOGLOBIN 31 PG (25-34); MEAN CORPUSCULAR HGB CONC 33 G/DL (32-36); MEAN CORPUSCULAR VOLUME 92 FL (80-99); MEAN PLATELET VOLUME 7.7 FL (7.4-10.4); MONOCYTES # (AUTO) 0.1 X 10^3 (0.0-1.0); MONOCYTES % (AUTO) 7 % (0-12); NEUTROPHILS # (AUTO) 1.1 X 10^3 (1.8-7.8); NEUTROPHILS % (AUTO) 71 % (42-75); RED CELL DISTRIBUTION WIDTH 17.1 % (10.0-14.5); WHITE BLOOD COUNT 1.6 10^3/uL (4.3-11.0)
[2019-01-09 05:08] LABS: HEMATOCRIT 18 % (40-54)
[2019-01-09 05:09] LABS: PLATELET COUNT 10 10^3/uL (130-400)
[2019-01-09 05:22] LABS: ALANINE AMINOTRANSFERASE 55 U/L (0-55); ALBUMIN 2.9 GM/DL (3.2-4.5); ALKALINE PHOSPHATASE 52 U/L (40-136); BUN/CREATININE RATIO 24; CALCIUM 8.1 MG/DL (8.5-10.1); CARBON DIOXIDE 23 MMOL/L (21-32); CHLORIDE 107 MMOL/L (98-107); GFR ESTIMATED > 60; GLUCOSE 139 MG/DL (70-105); POTASSIUM 3.4 MMOL/L (3.6-5.0); SODIUM 139 MMOL/L (135-145); TOTAL PROTEIN 4.7 GM/DL (6.4-8.2)
--- NOTE | 2019-01-09 06:00 | NUR ---
Dr. Quinones notified of critical lab Hgb 6.0 and Platelets of 10. Orders received for 2 u PRBCs and 1 unit of Platelets. Patient informed of lab results and consent obtained.
--- NOTE | 2019-01-09 06:31 | Pulmonary Consultation ---
History of Present Illness History of Present Illness Date of Consultation 01/09/19 06:31 Time Seen by Provider: 11:39 Date of Admission History of Present Illness 73yo with hx of MDS and recently admitted then discharged from hospital presented to ED secondary to worsening SOB, hypoxia and cough. Does admit to decreased appetite. Denies chest pain or bleeding in stool or urine. I am co nsulted for pulmonary management. Allergies and Home Medications Allergies Coded Allergies: sulfamethoxazole (Verified Allergy, Unknown, Hives, 01/08/19) trimethoprim (Verified Allergy, Unknown, Hives, 01/08/19) Home Medications Acetaminophen 500 Mg Tablet, 1,000 MG PO Q4H PRN for PAIN-MILD, (Reported) Albuterol Sulfate 90 Mcg Aer.pow.ba, 2 PUFF IH QID PRN for SHORTNESS OF BREATH, (Reported) Fluconazole 150 Mg Tablet, 150 MG PO DAILY Prescribed by: MARLEN STRANGE on 01/07/19 1038 Folic Acid 1 Mg Tablet, 1 MG PO DAILY, (Reported) Levofloxacin 750 Mg Tablet, 750 MG PO DAILY Prescribed by: MARLEN STRANGE on 01/07/19 1038 Mometasone Furoate 220 Mcg Aer.pow.ba, 1 PUFF IH BID, (Reported) Omeprazole 20 Mg Tablet.dr, 20 MG PO BID, (Reported) Prednisone 5 Mg Tablet, 40 MG PO DAILY TAKES 8 (5MG) TABLETS Prescribed by: MARLEN STRANGE on 01/07/19 1038 Simvastatin 20 Mg Tablet, 20 MG PO HS, (Reported) Temazepam 30 Mg Capsule, 30 MG PO HS, (Reported) Tiotropium Petty 4 Gm Mist.inhal, 2 PUFF IH DAILY, (Reported) Past Gyhylrx-Pbyxqi-Czxmwr Hx Past Med/Social Hx: Reviewed Nursing Past Med/Soc Hx Patient Social History Alcohol Use: Denies Use Recreational Drug Use: No Smoking Status: Former Smoker Former Smoker, Quit: January 06, 2013 2nd Hand Smoke Exposure: No Recent Foreign Travel: No Contact w/Someone Who Travel: No Recent Infectious Disease Expo: No Recent Hopitalizations: No Physical Abuse: No Sexual Abuse: No Mistreated: No Fear: No Immunizations Up To Date PED Vaccines UTD: No Date of Pneumonia Vaccine: December 30, 2016 Seasonal Allergies Seasonal Allergies: No Past Medical History Surgeries: Yes (R lower lobectomy, hemorrhoidectomy, port) Tonsillectomy Respiratory: Yes (lung cancer, wears oxygen ) COPD, Emphysema Currently Using CPAP: Yes Cardiac: Yes (aortic valve stenosis) Hypertension Neurological: No Genitourinary: Yes (mild kidney disease) Gastrointestinal: No Musculoskeletal: No Endocrine: No HEENT: Yes Cataract Cancer: Yes (myelodysplastic syndrome) Lung Did You Recieve Any Treatments: Yes What Type of Treatment Did You: Chemotherapy, Surgical Intervention Psychosocial: No Integumentary: No Blood Disorders: Yes (anemia, recent blood transfusion) Family Medical History Reviewed Nursing Family Hx No Pertinent Family Hx Review of Systems Time Seen by Provider: 11:40 Sepsis Event Evaluation Height, Weight, BMI Height: 6'0.00" Weight: 213lbs. 5.0oz. 96.401489ao; 28.9 BMI Method:Stated Exam Exam Vital Signs Date Time Temp Pulse Resp B/P (MAP) Pulse Ox O2 Delivery O2 Flow Rate FiO2 01/09/19 04:00 98.0 75 20 107/71 (83) 94 Nasal Cannula 4.00 01/09/19 01:29 93 NIV CPAP 4.00 01/08/19 23:45 98.3 78 18 151/70 (97) 96 Nasal Cannula 4.00 01/08/19 20:45 95 Nasal Cannula 4.00 01/08/19 20:00 95 Nasal Cannula 4.00 01/08/19 19:58 78 96 32 01/08/19 19:55 97.7 88 12 111/71 (84) 98 Nasal Cannula 4.00 01/08/19 17:25 97.4 78 14 115/68 96 Nasal Cannula 4.00 01/08/19 17:20 98.4 92 18 105/86 94 Nasal Cannula 4.00 4.00 01/08/19 17:18 Nasal Cannula 4.00 01/08/19 17:00 92 18 105/86 (92) 94 4.00 01/08/19 15:00 97 Nasal Cannula 4.00 01/08/19 13:21 98.4 116 22 94/74 96 3.00 01/08/19 13:21 98.4 116 22 94/74 (81) 96 Nasal Cannula 3.00 01/08/19 13:21 96 Nasal Cannula 3.00 96 I & O 01/09/19 07:00 Intake Total 1705 ml Output Total 1350 ml Balance 355 ml Height & Weight Height: 6'0.00" Weight: 213lbs. 5.0oz. 96.148918gv; 28.9 BMI Method:Stated General Appearance: WD/WN, Mild Distress HEENT: PERRL/EOMI, Pharynx Normal Neck: Non Tender, Supple Respiratory: Crackles, Decreased Breath Sounds Cardiovascular: No Murmur, Tachycardia Capillary Refill: Less Than 3 Seconds Gastrointestinal: normal bowel sounds, non tender, soft Extremity: Normal Range of Motion, Pedal Edema (1+ to mid tibia bilaterally) Neurologic/Psychiatric: Alert, Oriented x3 Skin: Normal Color, Warm/Dry Lymphatic: No Adenopathy Results Lab Laboratory Tests 01/08/19 13:55 01/09/19 04:55 Assessment/Plan Assessment/Plan Pneumonia with pulmonary edema -Park cultures - Zosyn Severe Anemia -S/p transfusions -Monitor -Oncology managing Pancytopenia -monitor LOREN CHRISTIAN DO Jan 09, 2019 06:31
[2019-01-09] MEDS: predniSONE 20 MG TAB PO SCH (07:17)
[2019-01-09] MEDS ORDERED: NS IV 500 ML 500 ML ONE (07:36)
[2019-01-09] MEDS: fluCOnazole (DIFLUCAN) 100 MG TAB PO SCH (08:21)
--- NOTE | 2019-01-09 11:28 | Diagnostic Imaging Report ---
Indication: Dyspnea. Time of Exam: 3:14 AM Correlation with prior study of one day earlier. Right chest wall port has its tip overlying the SVC. Extensive airspace infiltrate throughout the right lung is unchanged. Infiltrate in the left base may be slightly improved however there is an infiltrate in the left upper lobe. Small right effusion is noted. There is no pneumothorax. Impression: Bilateral infiltrates, as described. Dictated by: Dictated on workstation # [id number]
[2019-01-09] MEDS: NS W/KCL 20 MEQ/L 1,000 ML IV SCH ×3 (11:42→21:11)
--- NOTE | 2019-01-09 14:26 | History & Physical-Hospitalist ---
History of Present Illness HPI/Chief Complaint The patient is a 73-year-old white male with myelodysplastic syndrome and severe anemia, granulocytopenia, thrombocytopenia who was just discharged 01/07 after being treated as an inpatient with transfusion and antibiotics for an apparent pneumonia. He returned yesterday with increasing shortness of breath. He is fully aware of the severity of his myelodysplastic DISorder Date Seen 01/09/19 Time Seen by a Provider: 14:22 Attending Physician Hal Escobar MD PCP Aidan Caraballo DO Referring Physician Date of Admission Jan 08, 2019 at 15:44 Home Medications & Allergies Home Medications Reviewed patient Home Medication Reconciliation performed by pharmacy medication reconciliations pool technician and/or nursing. Patients Allergies have been reviewed. Allergies Allergies Coded Allergies sulfamethoxazole (Verified Allergy, Unknown, Hives, 01/08/19) trimethoprim (Verified Allergy, Unknown, Hives, 01/08/19) Past Isvuuhu-Zfcslv-Rucavz Hx Past Med/Social Hx: Reviewed Nursing Past Med/Soc Hx Patient Social History Alcohol Use: Denies Use Recreational Drug Use: No Smoking Status: Former Smoker Former Smoker, Quit: January 06, 2013 2nd Hand Smoke Exposure: No Physical Abuse Screen: No Sexual Abuse: No Recent Foreign Travel: No Contact w/other who traveled: No Recent Hopitalizations: No Recent Infectious Disease Expo: No Immunizations Up To Date Pediatric: No Date of Pneumonia Vaccine: December 30, 2016 Seasonal Allergies Seasonal Allergies: No Past Medical History Surgeries: Tonsillectomy Currently Using CPAP: Yes Cardiac: Hypertension HEENT: Cataract Cancer: Lung Did You Recieve Any Treatments: Yes What Type of Treatment Did You: Chemotherapy, Surgical Intervention History of Blood Disorders: Yes (anemia, recent blood transfusion) Family History Reviewed Nursing Family Hx No Pertinent Family Hx Review of Systems Constitutional: see HPI EENTM: no symptoms reported Respiratory: cough, dyspnea on exertion, orthopnea, short of breath Cardiovascular: no symptoms reported Gastrointestinal: loss of appetite, nausea Genitourinary: no symptoms reported Musculoskeletal: muscle weakness Skin: no symptoms reported Psychiatric/Neurological: No Symptoms Reported Physical Exam Physical Exam Vital Signs Capillary Refill : Less Than 3 SecondsLess Than 3 Seconds Height, Weight, BMI Height: 6'0.00" Weight: 213lbs. 5.0oz. 96.144842ki; 28.9 BMI Method:Stated General Appearance: Mild Distress (he appears more breathless than earlier in the week.) Eyes: Bilateral Eye Normal Inspection HEENT: Normal ENT Inspection Neck: Normal Inspection Respiratory: Chest Non Tender, Lungs Clear, Normal Breath Sounds, No Accessory Muscle Use, No Respiratory Distress Cardiovascular: Regular Rate, Rhythm, No Edema, No Gallop, No JVD, No Murmur, Normal Peripheral Pulses Gastrointestinal: Normal Bowel Sounds Extremity: Normal Capillary Refill Neurologic/Psychiatric: Alert, Oriented x3, No Motor/Sensory Deficits, Normal Mood/Affect, grey percher II-XII Norm as Tested Skin: Normal Color Results Results/Procedures Labs Patient resulted labs reviewed. Assessment/Plan Admission Diagnosis Myelodysplastic syndrome. 2.imminently no suppression secondary to number 1. 3.pneumonia Admission Status: Inpatient Order (span 2 midnights) Reason for Inpatient Admission: Failed outpatient try Clinical Quality Measures DVT/VTE Risk/Contraindication: Risk Factor Score Per Nursin RFS Level Per Nursing on Admit: 4+=Very High HAL ESCOBAR MD Jan 09, 2019 14:26
--- NOTE | 2019-01-09 14:43 | CONSULTATION REPORT ---
DATE OF SERVICE: 01/09/2019 The patient is admitted to room 421. PHYSICIAN REQUESTING CONSULTATION: Hal Quijano MD IMPRESSION: 1. A 73-year-old male admitted with pancytopenia, bilateral pulmonary infiltrates and significant dyspnea on exertion. 2. Recent diagnosis of myelodysplastic syndrome RAEB-2 causing the pancytopenia. His transfusion requirement is increasing over the past 2 months. 3. Aortic stenosis, status post transthoracic echocardiogram without an accurate estimate. The patient is scheduled to see cardiology at for possible [facility] for further evaluation. 4. Significant deconditioning. 5. Bilateral interstitial infiltrates and on antibiotics recently. This is continuing to worsen. RECOMMENDATIONS: 1. Transfusion support to maintain hemoglobin close to 8 grams per deciliter and platelet count more than 10 as he is having active bleeding. 2. Consider starting palliative chemotherapy with azacitidine. Patient understands the goals for treatment, which is reducing transfusion requirement and delaying transformation to acute myeloid leukemia. He wants to proceed with treatment. 3. Also discussed other options which is best supportive care. 4. Even if he has critical aortic stenosis, this is not imminently life threatening. Once the blood counts can be improved with chemotherapy, we could consider valve replacement at a later date. Even with transfusion support, his blood could not be maintained at an adequate level for surgery. 5. Bilateral interstitial lung infiltrates. This could be an atypical pneumonia versus hemorrhage versus other. Pulmonary service is following the patient. He is currently on broad-spectrum antibiotics. 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 Continue antifungal agents. 6. I discussed no active treatment with best supportive care alone and the patient is not ready for this. 7. His overall prognosis is poor. 8. May consider swing bed status for PT/OT and strengthening, IV antibiotics as well as transfusion support. BRIEF HISTORY: The patient is a 73-year-old male who was admitted to the hospital last night with worsening symptoms of shortness of breath, fatigue and hemoptysis. He was discharged home less than 24 hours ago after transfusion with packed red blood cells and platelets. He was recently diagnosed with myelodysplastic syndrome RAEB-2 following a bone marrow evaluation. He was recommended to undergo palliative chemotherapy with azacitidine, but wanted to do this closer to home. He was evaluated by Dr. Zafar. His blood counts have worsened over the past few months and his transfusion requirement is increasing significantly. He is also having evidence of bleeding in spite of transfusion support. PAST MEDICAL HISTORY: Significant for recent diagnosis of MDS RAEB-2 as mentioned above. This is causing pancytopenia with increasing transfusion requirement. He also has history of early stage non-small cell lung cancer and underwent a right lower lobe lobectomy followed by adjuvant chemotherapy with cisplatin and gemcitabine regimen in 2013 and has no evidence of recurrence. He has underlying COPD with previous 21-xsep-zreo history of tobacco using. This was stopped in 2013. History of coronary artery disease as well as moderate to severe aortic stenosis. Workup for this is ongoing. PAST SURGICAL HISTORY: Include a tonsillectomy and adenoidectomy in childhood, hemorrhoidectomy in the past. Right lower lobectomy in 2013. Recent bone marrow aspiration biopsy. FAMILY HISTORY: Significant for his mother who was diagnosed with breast cancer. She also had coronary artery disease. Father was diagnosed with prostate cancer at an elderly age. He also had coronary artery disease. SOCIAL HISTORY: The patient is and lives in [place], [place]. He has 2 stepchildren, a stepson and a stepdaughter, both of whom live close by. He has a biological son who is in his early 30s, but has Down syndrome. He lives in a nursing home. The patient has 99-izbs-kyeh history of tobacco use, but quit in 2013. He uses alcohol socially. Denied any recreational drug use. PHYSICAL EXAMINATION: GENERAL: Today showed an elderly male, well developed and nourished, weak appearing, awake and oriented, in no acute distress. VITAL SIGNS: His temperature was 97.8, pulse rate of 82, respirations 22, blood pressure 139/81, oxygen saturation 93% on 4 liters of oxygen by nasal cannula. HEENT: Normocephalic. Extraocular muscles intact. Conjunctivae pale. Oral mucosa moist. Small ulceration on the roof of the mouth. No evidence of wet purpura. NECK: Supple with no JVD. No cervical, supraclavicular or axillary lymphadenopathy palpable. CHEST: Symmetrical. Lungs with diminished breath sounds bilaterally with few rhonchi. No wheezes or rales heard. CARDIOVASCULAR: Regular in rate and rhythm. Grade 3 systolic murmur was heard. ABDOMEN: Slightly obese, soft, nontender with no hepatosplenomegaly or other masses palpable. EXTREMITIES: Showed trace edema. Scattered ecchymosis noted on all 4 extremities. NEUROLOGIC: Showed no focal motor deficits. Overall, motor strength was 4/5 bilaterally. LABORATORY DATA: CBC done yesterday at the time of admission showed WBC 2.5, hemoglobin 7.2 and platelet count 17,000 with neutrophil count 1.8 and lymphocyte count 0.6. Repeat CBC today morning showed WBC 1.6, hemoglobin 6 and platelet count 10,000 with neutrophil count of 1.1 and lymphocyte count 0.3. Chemistry panel done today showed relatively normal electrolytes except potassium level of 3.4. BUN was 22 and creatinine 0.9 with GFR more than 60 mL per minute. Glucose was 139. Liver function studies were within normal limits except albumin level of 2.9. Chest x-ray done at the time of admission from the emergency room showed bilateral infiltrates which is slightly worsened in the left base when compared to the examination from 2 days earlier. Extensive infiltrates throughout the right lung persist as well as in the left mid and lower lung field. Thank you for allowing me to participate in this patient's care. I will sign off this case to Dr. Zafar tomorrow morning. Job ID: [id number] DocumentID: [id number] Dictated Date: 01/09/2019 13:59:03 Alliance Manager Date: 01/09/2019 14:43:33 Dictated By: YAYA JOHN MD [facility] CAMPUSLovely
[2019-01-09] MEDS: ACYCLOVIR INJECTION 500 MG in NS (IVPB) 100 ML IV SCH ×2 (14:52→21:32)
[2019-01-09] MEDS: TEMAZEPAM 15 MG (RESTORIL) CAP PO PRN (21:11)
--- NOTE | 2019-01-09 23:14 | NUR ---
Dr Quinones notified of repeat H/H et platelets. Hgb 7.7, Hct 18, Plt 10. Received telephone order for 1 unit of platelets to be given first thing in the morning. Also received telephone order for CBC/CMP to be drawn tomorrow morning (01/10) at 0600. SANDRO Adame
[2019-01-10] VITALS: BP 100/54
[2019-01-10] MEDS: RT-ALBUTEROL/IPRATROPIUM 3 ML (DUONEB) VIAL INH SCH ×3 (01:08→11:43)
--- NOTE | 2019-01-10 01:43 | NUR ---
RECEIVED RPT FROM [facility]
[2019-01-10] MEDS: PIPERACILLIN/TAZO 4.5 GM/NS 100 ML IV SCH ×4 (02:22→10:38)
[2019-01-10 04:00] VITALS: BP 127/57
--- NOTE | 2019-01-10 04:42 | NUR ---
PT HAS TEMP OF 101-[address] ESCOBAR CALLED AND HE ORDERED TYLENOL 500 MG Q4 PO PRN
[2019-01-10] MEDS: ACETAMINOPHEN 500 MG TAB (TYLENOL) PO PRN ×2 (04:46→09:12)
--- NOTE | 2019-01-10 04:47 | NUR ---
pt o2 down to 84%. increased o2 to 5 lpm nc. advised RT and they checked o2 as well. Pt o2 increased to 90% when he breathed through nose. Pt did not want back on his bipap at this time. Will continue to monitor.
[2019-01-10 05:42] LABS: BASOPHILS % (AUTO) 1 % (0-10); EOSINOPHILS # (AUTO) 0.1 10^3/uL (0.0-0.3); EOSINOPHILS % (AUTO) 2 % (0-10); HEMATOCRIT 23 % (40-54); LYMPHOCYTES # (AUTO) 0.8 X 10^3 (1.0-4.0); LYMPHOCYTES % (AUTO) 27 % (12-44); MEAN CORPUSCULAR HEMOGLOBIN 30 PG (25-34); MEAN CORPUSCULAR HGB CONC 34 G/DL (32-36); MEAN CORPUSCULAR VOLUME 89 FL (80-99); MONOCYTES # (AUTO) 0.3 X 10^3 (0.0-1.0); MONOCYTES % (AUTO) 9 % (0-12); NEUTROPHILS # (AUTO) 1.8 X 10^3 (1.8-7.8); NEUTROPHILS % (AUTO) 62 % (42-75); RED CELL DISTRIBUTION WIDTH 16.7 % (10.0-14.5); WHITE BLOOD COUNT 2.9 10^3/uL (4.3-11.0)
[2019-01-10 05:46] LABS: PLATELET COUNT 14 10^3/uL (130-400)
--- NOTE | 2019-01-10 05:53 | NUR ---
0546 lab called w critical lab on platelets of 14. Dr. Celis notified. Pt is scheduled to receive 1 unit of platelets already this morning.
[2019-01-10 06:04] LABS: ALANINE AMINOTRANSFERASE 71 U/L (0-55); ALBUMIN 2.9 GM/DL (3.2-4.5); ALKALINE PHOSPHATASE 54 U/L (40-136); BILIRUBIN,TOTAL 1.3 MG/DL (0.1-1.0); BUN/CREATININE RATIO 16; CALCIUM 7.7 MG/DL (8.5-10.1); CARBON DIOXIDE 21 MMOL/L (21-32); CHLORIDE 106 MMOL/L (98-107); CREATININE SERUM 0.97 MG/DL (0.60-1.30); GFR ESTIMATED > 60; GLUCOSE 85 MG/DL (70-105); SODIUM 136 MMOL/L (135-145); TOTAL PROTEIN 4.9 GM/DL (6.4-8.2)
[2019-01-10] MEDS: predniSONE 20 MG TAB PO SCH (06:38)
[2019-01-10] MEDS: ACYCLOVIR INJECTION 500 MG in NS (IVPB) 100 ML IV SCH ×2 (06:38→13:36)
[2019-01-10] MEDS ORDERED: NS IV 500 ML 500 ML ONE (07:18)
[2019-01-10 07:45] VITALS: BP 121/60
[2019-01-10 08:00] VITALS: BP_SYST 121; BP_SYST 132; BP_DIAS 60; BP_DIAS 62
[2019-01-10] MEDS ORDERED: ACETAMINOPHEN 325 MG TABLET PO PRN (09:00)
--- NOTE | 2019-01-10 09:17 | NUR ---
DR. JOHN NOTIFIED OF PT. CHILLING AND SHAKING. STATED TO GIVE TYLENOL AND CONT. PLATELETS. SKIN W/D. TEMP=98.2 P-98 GS=541/77 O2 SAT 92 % WITH O2 ON AT 5 L PER MIN.
[2019-01-10 09:30] VITALS: BP 137/78
--- NOTE | 2019-01-10 10:15 | NUR ---
DR. MUSE NOTIFIED OF PT. TEMP 101 JL=[id number] RESP-22 DV=415/[id number]
[2019-01-10] MEDS: fluCOnazole (DIFLUCAN) 100 MG TAB PO SCH (10:17)
[2019-01-10 11:18] LABS: BASOPHILS % (AUTO) 1 % (0-10); EOSINOPHILS # (AUTO) 0.1 10^3/uL (0.0-0.3); EOSINOPHILS % (AUTO) 2 % (0-10); HEMATOCRIT 23 % (40-54); LYMPHOCYTES # (AUTO) 0.6 X 10^3 (1.0-4.0); LYMPHOCYTES % (AUTO) 17 % (12-44); MEAN CORPUSCULAR HEMOGLOBIN 31 PG (25-34); MEAN CORPUSCULAR HGB CONC 34 G/DL (32-36); MEAN CORPUSCULAR VOLUME 90 FL (80-99); MEAN PLATELET VOLUME 11.3 FL (7.4-10.4); MONOCYTES % (AUTO) 1 % (0-12); NEUTROPHILS # (AUTO) 2.6 X 10^3 (1.8-7.8); NEUTROPHILS % (AUTO) 78 % (42-75); RED CELL DISTRIBUTION WIDTH 16.8 % (10.0-14.5); WHITE BLOOD COUNT 3.4 10^3/uL (4.3-11.0)
[2019-01-10] MEDS: NS W/KCL 20 MEQ/L 1,000 ML IV SCH ×2 (11:19→12:50)
[2019-01-10 11:27] LABS: PLATELET COUNT 12 10^3/uL (130-400)
[2019-01-10] MEDS ORDERED: KCL 20 MEQ TAB (K-DUR) PO NR (11:30)
[2019-01-10 11:45] LABS: ALANINE AMINOTRANSFERASE 74 U/L (0-55); ALKALINE PHOSPHATASE 51 U/L (40-136); BILIRUBIN,TOTAL 1.8 MG/DL (0.1-1.0); BUN/CREATININE RATIO 17; CALCIUM 7.8 MG/DL (8.5-10.1); CARBON DIOXIDE 21 MMOL/L (21-32); CHLORIDE 104 MMOL/L (98-107); CREATININE SERUM 0.95 MG/DL (0.60-1.30); GFR ESTIMATED > 60; GLUCOSE 112 MG/DL (70-105); POTASSIUM 3.2 MMOL/L (3.6-5.0); SODIUM 133 MMOL/L (135-145); TOTAL PROTEIN 5.2 GM/DL (6.4-8.2)
[2019-01-10 12:00] VITALS: BP 133/61
--- NOTE | 2019-01-10 12:19 | NUR ---
REVIEWED MED REC IT WAS REPORTED UPON HIS DISCHARGE FROM HIS RECENT VISIT. DID NOT RE INTERVIEW THE PATIENT AT THIS TIME.
--- NOTE | 2019-01-10 13:16 | Progress Note-Hospitalist ---
Progress Note Progress Notes/Assess & Plan Date Seen 01/10/19 Time Seen by Provider: 13:13 Assessment & Plan The patient and his are in the room. They have spoken to Dr. Zafar and have elected to initiate chemotherapy. They recognize that this has a rather low probability of success but wished to try. Physical exam: The patient appears puffy through the face. Lungs are clear to auscultation. CV is regular without murmur. The skin shows multiple petechia and small ecchymoses. Impression: Myelodysplasia with severe anemia, thrombocytopenia, granulocytopenia. Focused Exam Lactate Level 01/08/19 13:55: Lactic Acid Level 4.60*H 01/08/19 15:52: Lactic Acid Level 2.84*H 01/10/19 10:35: Lactic Acid Level 1.89 Lactic Acid Level Laboratory Tests Test 01/10/19 10:35 Lactic Acid Level 1.89 MMOL/L (0.50-2.00) GRACE ESCOBAR MD Jan 10, 2019 13:15
--- NOTE | 2019-01-10 14:19 | Oncology Progress Note ---
Subjective Date Seen by a Provider: Jan 10, 2019 Time Seen by a Provider: 11:00 Subjective/Events-last exam Pt discharged on Thursday and readmit on Thursday due to fever and SOB, severe pancytopenia needing Plt and RBC transfusion. Dr Quinones covered for the weekend and discussed with patient about chemotherapy option. I talked to patient and and explained benefit and side effects of the treatment today. They understand about 30% response rate and is high risk to start chemo while he is still having the pneumonia. "I take my chance since I don't think I have much left. I have nothing to lose". He wants to start chemo Vidaza today if all possible. He had fever 101 after we started the Plt transfusion this morning. His plt was 14k before the Plt transfusion when Dr Moreira ordered the Plt this morning. His Plt was 12k post one unit of transfusion. He does NOT responding to Plt transfusion. He has petechei and small echymosis over his arms. Data Review Labs Laboratory Tests 01/10/19 10:35 Laboratory Tests 01/08/19 13:55: White Blood Count 2.5L, Red Blood Count 2.29L, Hemoglobin 7.2L, Hematocrit 21L, Red Cell Distribution Width 17.2H, Platelet Count 17*L, Lymphocytes # (Auto) 0.6L, Prothrombin Time 14.8H, Potassium Level 3.0L, Blood Urea Nitrogen 27H, Glucose Level 178H, Lactic Acid Level 4.60*H, Calcium Level 8.0L, Total Bilirubin 1.1H, Aspartate Amino Transf (AST/SGOT) 36H, Alanine Aminotransferase (ALT/SGPT) 67H, Troponin I 0.048H, B-Type Natriuretic Peptide 226.1H, Total Protein 5.2L 01/08/19 15:22: Urine Specific [place] 1.005L, Urine Protein 1+H, Urine Urobilinogen 4H, Urine Leukocyte Esterase 1+H, Urine Mucus SMALLH 01/08/19 15:52: Lactic Acid Level 2.84*H 01/09/19 04:55: White Blood Count 1.6L, Red Blood Count 1.95L, Hemoglobin 6.0*L, Hematocrit 18*L , Red Cell Distribution Width 17.1H, Platelet Count 10*L, Lymphocytes # (Auto) 0.3L, Potassium Level 3.4L, Blood Urea Nitrogen 22H, Glucose Level 139H, Calcium Level 8.1L, Total Protein 4.7L, Neutrophils # (Auto) 1.1L, Albumin 2.9L 01/09/19 21:33: Hemoglobin 7.7#L 01/10/19 05:25: Hemoglobin 8.0L, White Blood Count 2.9L, Red Blood Count 2.63L, Hematocrit 23L, Red Cell Distribution Width 16.7H, Platelet Count 14*L, Mean Platelet Volume 11.0H, Lymphocytes # (Auto) 0.8L, Potassium Level 3.0L, Calcium Level 7.7L, Total Bilirubin 1.3H, Aspartate Amino Transf (AST/SGOT) 37H, Alanine Aminotransferase (ALT/SGPT) 71H, Total Protein 4.9L, Albumin 2.9L 01/10/19 10:35: Hemoglobin 8.0L, White Blood Count 3.4L, Red Blood Count 2.58L, Hematocrit 23L, Red Cell Distribution Width 16.8H, Platelet Count 12*L, Mean Platelet Volume 11.3H, Lymphocytes # (Auto) 0.6L, Potassium Level 3.2L, Calcium Level 7.8L, Total Bilirubin 1.8H, Aspartate Amino Transf (AST/SGOT) 39H, Alanine Aminotransferase (ALT/SGPT) 74H, Total Protein 5.2L, Albumin 3.0L, Neutrophils (%) (Auto) 78H, Sodium Level 133L, Glucose Level 112H 01/10/19 12:41: Physical Exam Vital Signs Vital Signs - First Documented 01/08/19 13:21 Temp 98.4 Pulse 116 Resp 22 B/P (MAP) 94/74 (81) Pulse Ox 96 O2 Delivery Nasal Cannula O2 Flow Rate 3.00 FiO2 96 Capillary Refill : Less Than 3 SecondsLess Than 3 Seconds Height, Weight, BMI Height: 6'0.00" Weight: 213lbs. 5.0oz. [id number]; 28.9 BMI Method:Stated General Appearance: No Apparent Distress HEENT: PERRL/EOMI Neck: Non Tender, Supple Respiratory: No Accessory Muscle Use, No Respiratory Distress Cardiovascular: Regular Rate, Rhythm, No Gallop Gastrointestinal: Non Tender, Soft Extremity: Non Tender, No Calf Tenderness Neurologic/Psychiatric: Alert, Oriented x3 Focused Exam Lactate Level 01/08/19 13:55: Lactic Acid Level 4.60*H 01/08/19 15:52: Lactic Acid Level 2.84*H 01/10/19 10:35: Lactic Acid Level 1.89 Lactic Acid Level Impression & Plan Impression & Plan 1. Fever, RUL pneumonia and neutropenia . Blood cultures all negative. Continue current antibiotics. 2. 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 Thrombocytopenia did not respond to steroid treatment. He wanted to start chemotherapy Vidaza as discussed by Dr Quinones over the weekend, starting today if all possible. 3. Mod-severe aortic stenosis, ? candidate for surgical repair/correction. Pt had cardiac and thoracic surgery evaluation 12/28/18. He will have more tests including JANETT on 01/19/19 to decide if he does have a critical stenosis and would be benefit from the surgical repair. Because of this, he has been chronic fatigue and was on wheel chair/walker since 10/2018. 4. h/o RLL non-small cell lung cancer, s/p surgical resection and chemotherapy cisplatin and gemcitabine 2012. Most recent CT scan of chest and abdomen 11/26/2018 showed NO recurrence of disease. 5. Severe SOB and hypoxia with minimal exertion O2 saturation drop from 95% sitting to 87% standing and 82% walking a few steps and near syncope. 6. 80 pack year of smoking, stopped 2012 when he as diagnosed with lung cancer 7. h/o CAD but recent cardiac cath 10/2018 did not show any blockage or active lesion. 8. Prognosis poor. Clinical Quality Measures DVT/VTE Risk/Contraindication: Risk Factor Score Per Nursin RFS Level Per Nursing on Admit: 4+=Very High MAREN MUSE MD Jan 10, 2019 14:19
[2019-01-10] MEDS ORDERED: AZACITIDINE SQ SCH (14:30)
--- NOTE | 2019-01-10 14:54 | NUR ---
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 I am consulted for review of Goals of life. Met with patient who has made the decision for chemotherapy and SWINGBED transition. He reports that he has a 40% chance of this working so that he has a little bit longer life expectancy. He reports that "it is in God's hands", but is hopeful for a successful treatment. This RN told him that I would check on him periodically and if he would like to speak to me prior to this he can ask for my visit.
--- NOTE | 2019-01-11 14:36 | Physician Query-Final Dx ---
LUIS ARMANDO LEVINE 01/11/19 1436: Final Diagnosis Give Final Diagnosis Please give Final Diagnosis INDU PATEL 02/14/19 0907: LUIS ARMANDO LEVINE Jan 11, 2019 14:36 INDU PATEL Feb 14, 2019 09:07
--- NOTE | 2019-02-11 12:03 | Short Stay Summary-Hospitalist ---
Short Stay Diagnosis D/C Date Jan 10, 2019 at 14:29 Bilateral pulmonary infiltrates. 2.myelodysplastic syndrome. 3.immunosuppression as a result of number 2. Clinical Quality Measures DVT/VTE Risk/Contraindication: Risk Factor Score Per Nursin RFS Level Per Nursing on Admit: 4+=Very High GRACE ESCOBAR MD Feb 11, 2019 12:03
== END 2019-01-10 14:29 | disposition swing bed (61) | DRG 194 ==
LOC: EDUNIT# 13:21 → ER 13:22 → 4TH 15:44
PROVIDERS: ADMIT Internal Medicine; ATTEND Internal Medicine
DX: J18.1 Lobar pneumonia, unspecified organism (principal); D46.9 Myelodysplastic syndrome, unspecified; D46.22 Refractory anemia with excess of blasts 2; D61.818 Other pancytopenia; R04.2 Hemoptysis; J43.9 Emphysema, unspecified; I35.0 Nonrheumatic aortic (valve) stenosis; Z66 Do not resuscitate; I25.10 Atherosclerotic heart disease of native coronary artery without angina pectoris; I10 Essential (primary) hypertension; B00.9 Herpesviral infection, unspecified; N28.9 Disorder of kidney and ureter, unspecified; Z87.891 Personal history of nicotine dependence; Z92.21 Personal history of antineoplastic chemotherapy; Z99.81 Dependence on supplemental oxygen; Z90.2 Acquired absence of lung [part of]; Z85.118 Personal history of other malignant neoplasm of bronchus and lung
CPT/HCPCS: 36415; 71045; 80053; 81000; 83020; 83605; 83880; 84484; 85018; 85025; 85610; 85730; 86850; 86900; 86901; 86920; 87040; 87070; 87088; 87106; 87186; 87205; 93005; 94640; 94760; 96361; 96365